=== PATIENT | female | born 2000 | race Caucasian/White ===

== ENCOUNTER 2023-04-10 05:06 | Emergency (ER) | payer SELFPAY ==
[2023-04-10 05:11] VITALS: BP 129/80; PULSE 107; RESP 18; TEMP 36.7; O2SAT 97; BMI 18.9
--- NOTE | 2023-04-10 05:13 | ED.ABDPAIN1 ---
HPI - Abdominal Pain General Chief Complaint: Abdominal Pain Stated Complaint: ABDOMINAL PAIN Time Seen by Provider: 04/10/23 05:13 History of Present Illness HPI narrative: pt coming to the ER with concern of being she have nausea for the last few days in the morning and she also noted that she has been having some low back pain some positive flex more than usual The patient denies any abdominal pain denying any vaginal bleeding her last menstruation was in February before that 15 and it was only 2 days instead of 5 Related Data Home Medications Medication Instructions Recorded Confirmed midodrine 2.5 mg tablet mg 04/10/23 Previous Rx's Medication Instructions Recorded pyridoxine (vitamin B6) 25 mg 25 mg PO TID PRN nausea and 04/10/23 tablet vomiting #20 tabs Review of Systems ROS Status of ROS 10 or more systems reviewed and unremarkable except as noted in history and below PFSH PFSH Social History Smoking status: Current every day smoker Exam Narrative Exam Narrative: Nurses notes and vital signs reviewed and patient is not hypoxic. General: Well-appearing and in no apparent distress. Skin: Warm, dry, no pallor noted. No rash. Head: Normocephalic, atraumatic. Neck: Supple, non-tender. Eye: Pupils are equal, round and EOMI. No scleral icterus. Ears, Nose, Mouth, and Throat: TM are clear, no nasal mucosal hypertrophy. Oral mucosa is moist, no posterior oropharynx erythema, uvula is mid-line Cardiovascular: Regular Rate and Rhythm without murmur, gallop or rub. Respiratory: No accessory muscle use or respiratory distress. Lungs are clear to auscultation, no wheezing, rales or rhonchi Chest Wall: no tenderness Back: No midline thoracic or lumbar vertebral tenderness. No CVA tenderness Musculoskeletal: normal ROM, no calf or popliteal tenderness, no lower extremity edema/swelling GI: Abdomen is soft, non-distended. Normal bowel sounds. No masses appreciated. No tenderness to palpation. No rebound, guarding, or rigidity noted. Neurological: A&O x4. No cranial nerve dysfunction observed. No truncal ataxia. Moves all extremities. Sensation intact. Psychiatric: Cooperative and interactive. Normal mood and affect. Constitutional Vital Signs, click to edit/add: Last Vital Signs Temp 98.0 F 04/10/23 05:11 Pulse 107 H 04/10/23 05:11 Resp 18 04/10/23 05:11 BP 129/80 04/10/23 05:11 Pulse Ox 97 04/10/23 05:11 O2 Del Method Room Air 04/10/23 05:11 Course Vital Signs Vital signs: Vital Signs Temperature 98.0 F 04/10/23 05:11 Pulse Rate 107 H 04/10/23 05:11 Respiratory Rate 18 04/10/23 05:11 Blood Pressure 129/80 04/10/23 05:11 Pulse Oximetry 97 04/10/23 05:11 Oxygen Delivery Method Room Air 04/10/23 05:11 Temperature 98.0 F 04/10/23 05:11 Pulse Rate 107 H 04/10/23 05:11 Respiratory Rate 18 04/10/23 05:11 Blood Pressure 129/80 04/10/23 05:11 Pulse Oximetry 97 04/10/23 05:11 Oxygen Delivery Method Room Air 04/10/23 05:11 MDM - Abdominal Pain MDM Narrative Medical decision making narrative: The patient examination was benign her urine was positive and she did not have any bacteria in the urine Right right now the patient was treated with vitamin B6 prescription for nausea and vomiting referred to [employer] [facility] service for further evaluation Patient instructed to come back in case of any abdominal pain or vaginal bleeding This is the first for the patient The patient is to follow up with primary care physician in next 2-3 days or to return to the emergency department should any of the signs or symptoms worsen or new symptoms develop. The patient agrees with the following Diagnosis and Treatment plan and the patient will be discharged home. Lab Data Labs: Lab Results 04/10/23 Range/Units 05:19 Urine Color Yellow (YELLOW) Urine Clarity Clear (CLEAR) Urine pH 6.0 (5.0-9.0) Ur Specific [place] >=1.030 A (1.005-1.025) Urine Protein Trace (NEG/TRACE) mg/dL Urine Glucose (UA) Negative (NEGATIVE) mg/dL Urine Ketones Trace A (NEGATIVE) mg/dL Urine Occult Blood Moderate A (NEGATIVE) Urine Nitrite Negative (NEGATIVE) Urine Bilirubin Negative (NEGATIVE) Urine Urobilinogen 1.0 (0.2-1.0) EU/dL Ur Leukocyte Esterase Trace A (NEGATIVE) Urine RBC 2-5 A (0-2) #/HPF Urine WBC 5-10 A (NONE SEEN) #/HPF Ur Squamous Epith Cells Moderate A (NONE/RARE) #/LPF Urine Crystals None seen (None Seen) #/HPF Urine Bacteria Moderate A (NONE SEEN) #/HPF Urine Casts None seen (NONE SEEN) #/LPF Urine Mucus None seen (NONE SEEN) Urine Sperm Seen Ur Culture Indicated? Yes Urine HCG, Qual Positive A (NEGATIVE) Discharge Plan Discharge Chief Complaint: Abdominal Pain Clinical Impression: Patient Disposition: Home, Self-Care Time of Disposition Decision: 06:07 Condition: Good Mode of Transportation: Private Vehicle Prescriptions / Home Meds: New pyridoxine (vitamin B6) 25 mg tablet 25 mg PO TID PRN (Reason: nausea and vomiting) Qty: 20 0RF No Action midodrine 2.5 mg tablet Instructions: Acute Nausea and Vomiting (DC) Stand Alone Forms: Portal Instructions Referrals: Wesly Sue DO [Physician] - 1 week Toña Pabon MD [Primary Care Provider] - 1 week
[2023-04-10 05:25] LABS: HCG Qualitative Urine* POSITIVE (NEGATIVE)
[2023-04-10 05:26] LABS: Bilirubin Urine NEGATIVE (NEGATIVE); Blood Urine MODERATE (NEGATIVE); Clarity Urine CLEAR (CLEAR); Color Urine YELLOW (YELLOW); Glucose Urine UA NEGATIVE (NEGATIVE); Ketones Urine TRACE mg/dL (NEGATIVE); Leukocyte Esterase Urine TRACE (NEGATIVE); Nitrite Urine NEGATIVE (NEGATIVE); Protein Urine TRACE mg/dL (NEG/TRACE); Specific Gravity Urine >=1.030 (1.005-1.025); Urine Microscopic Indicated YES
[2023-04-10 05:33] LABS: Bacteria Urine MODERATE #/HPF (NONE SEEN); Cast Seen? NONE SEEN #/LPF (NONE SEEN); Crystals Seen? None Seen #/HPF (None Seen); Mucus Urine NONE SEEN (NONE SEEN); Sperm Urine SEEN; Squamous Epithelial Cell Urine MODERATE #/LPF (NONE/RARE); Urine Culture Indicated YES
== END 2023-04-10 06:18 | disposition home or self-care (01) ==
PROVIDERS: Emergency Provider Emergency Medicine; PCP Family Medicine
DX: O26.899 Other specified pregnancy related conditions, unspecified trimester (principal); R11.2 Nausea with vomiting, unspecified; O99.330 Smoking (tobacco) complicating pregnancy, unspecified trimester; F17.210 Nicotine dependence, cigarettes, uncomplicated; Z3A.00 Weeks of gestation of pregnancy not specified
CPT/HCPCS: 81001; 81003; 84703; 87086; 99283

== ENCOUNTER 2023-04-11 13:20 | Emergency (ER) | payer SELFPAY ==
[2023-04-11 13:25] VITALS: BP 109/75; PULSE 94; RESP 16; TEMP 36.9; O2SAT 97; BMI 18.9
[2023-04-11] MEDS: PROCHLORPERAZINE 10 MG/2 ML VIAL IV (14:55)
[2023-04-11] MEDS: ONDANSETRON PF 4 MG/2 ML VIAL IV (14:55)
[2023-04-11] MEDS: 0.9 % SODIUM CHLORIDE 1,000 ML 999 ML IV (14:55)
[2023-04-11 15:13] LABS: Basophils Percent Auto 0.3 % (0.2-2.0); Hematocrit 37.9 % (36.0-48.0); Hemoglobin 13.1 g/dL (12.0-16.0); Immature Granulocytes Abs Auto 0.03 10^3/uL (0.00-0.03); Immature Granulocytes Pct Auto 0.3 % (0.0-0.5); Lymphocytes Percent Auto 11.1 % (20.5-60.0); Mean Corpuscular HGB Conc 34.6 g/dL (29.9-35.2); Mean Corpuscular Hemoglobin 29.8 pg (26.7-34.0); Mean Corpuscular Volume 86.3 fL (81.0-99.0); Mean Platelet Volume 9.6 fL (9.5-13.5); Monocytes Absolute Auto 0.3 10^3/uL (0.3-0.8); Monocytes Percent Auto 3.1 % (1.7-12.0); Neutrophils Absolute Auto 7.9 10^3/uL (1.4-6.5); Neutrophils Percent Auto 85.2 % (43.0-75.0); Platelet Count 256 10^3/uL (150-450); Red Blood Count 4.39 10^6/uL (4.20-5.40); Red Cell Distribution Width 12.4 % (11.0-15.0); White Blood Count 9.3 10^3/uL (4.0-11.0)
[2023-04-11 15:25] LABS: Alanine Aminotransferase 20 U/L (14-59); Albumin Globulin Ratio 1.4; Albumin Level 4.9 g/dL (3.4-5.0); Alkaline Phosphatase 56 U/L (46-116); Anion Gap 19.8; Aspartate Amino Transferase 17 U/L (15-37); BUN Creatinine Ratio 20.3; Carbon Dioxide 20.5 mmol/L (21.0-32.0); Chloride 100 mmol/L (98-107); Estimated GFR (African America >60 (>=60); Estimated GFR (Non-African Ame >60 (>=60); Globulin 3.4 g/dL; Glucose 94 mg/dL (74-106); Potassium 3.3 mmol/L (3.5-5.1); Sodium 137 mmol/L (136-145); Total Protein 8.3 g/dL (6.4-8.2)
[2023-04-11] MEDS: POTASSIUM BICARBONATE/CIT 25 MEQ TABLET EFF 50 MEQ PO (15:41)
[2023-04-11 15:52] LABS: HCG Quantitative 16211 mIU/mL
--- NOTE | 2023-04-11 16:11 | ED_ITS ---
HPI - General Adult General Chief complaint: Abdominal Pain Stated complaint: issues 4 weeks Time Seen by Provider: 04/11/23 13:48 Source: patient and family Mode of arrival: walk-in Limitations: no limitations History of Present Illness HPI narrative: Patient is a 22-year-old female who is presenting to the Emergency Room with chief complaint of nausea, vomiting, and finding out that she was early this morning. Patient's having diffuse abdominal pain and discomfort. Patient says that she is vomited 4 or 5 times since she was discharged. Patient stated that she came into the Emergency Room this morning because of abdominal discomfort, nausea or vomiting. Patient says that she did not feel any better when she left the Emergency Room. Urine was done. Patient has no pelvic pain, vaginal bleeding or discharge or orders. She does have urinary frequency urine seemed burning. She is a . Patient's mother and boyfriend at bedside. I walk into the room it smelled a significant marijuana use, I asked the patient and family members at bedside who smoking marijuana and this from because the older and stench was significant. Patient denies any type of falls. No chest pain or shortness of breath. No headaches, neck pain, no other acute complaints. No rash. . All systems are negative except as noted/marked. All systems reviewed and otherwise negative. . Nurses note and vital signs reviewed and patient is not hypoxic. General: The patient appears well and in no apparent distress. Patient is resting comfortably on cart. Patient is not toxic, lethargic, or listless Skin: Warm, dry, no pallor noted. There is no rash noted. No petechiae, purpura. Head: Normocephalic, atraumatic Eye: Normal conjunctiva, no drainage, EOMI. PERRL Ears, Nose, Mouth, and Throat: oral mucosa is moist. Nares patent. Mouth without vesicles. Cardiovascular: Regular Rate and Rhythm, no murmur, gallop, rub Respiratory: Patient is in no distress, no accessory muscle use, lungs are elida r to auscultation, no wheezing, rales or rhonchi Back: non-tender, no CVA tenderness bilaterally to percussion. No CT LS midline pain GI: soft, Moderate diffuse tenderness to palpation, no masses appreciated. No rebound, + guarding, or rigidity noted. No flank pain bilateral, No distention. No suprapubic tenderness to palpation. Musculoskeletal: Patient has full range of motion of all of the extremities, no motor, sensory, or focal neurological deficits Neurological: A&O x3, normal speech Psychiatric: Cooperative Related Data Home Medications Medication Instructions Recorded Confirmed midodrine 2.5 mg tablet mg 04/10/23 Previous Rx's Medication Instructions Recorded pyridoxine (vitamin B6) 25 mg 25 mg PO TID PRN nausea and 04/10/23 tablet vomiting #20 tabs cephalexin 500 mg capsule 500 mg PO Q12H 5 days #10 caps 04/11/23 ondansetron 4 mg disintegrating 4 mg PO Q4H PRN nausea and 04/11/23 tablet vomiting 3 days #6 tabs promethazine 25 mg rectal 25 mg IA Q6H PRN nausea and 04/11/23 suppository vomiting #6 ea Allergies Allergy/AdvReac Type Severity Reaction Status Date / Time No Known Drug Allergies Allergy Verified 04/11/23 13:30 PFSH PFSH Social History Smoking status: Former smoker Exam Constitutional Vital Signs, click to edit/add: Last Vital Signs Temp 98.5 F 04/11/23 13:25 Pulse 94 H 04/11/23 13:25 Resp 16 04/11/23 13:25 BP 109/75 04/11/23 13:25 Pulse Ox 97 04/11/23 13:25 O2 Del Method Room Air 04/11/23 13:25 Course Vital Signs Vital signs: Vital Signs Temperature 98.5 F 04/11/23 13:25 Pulse Rate 94 H 04/11/23 13:25 Respiratory Rate 16 04/11/23 13:25 Blood Pressure 109/75 04/11/23 13:25 Pulse Oximetry 97 04/11/23 13:25 Oxygen Delivery Method Room Air 04/11/23 13:25 Temperature 98.5 F 04/11/23 13:25 Pulse Rate 94 H 04/11/23 13:25 Respiratory Rate 16 04/11/23 13:25 Blood Pressure 109/75 04/11/23 13:25 Pulse Oximetry 97 04/11/23 13:25 Oxygen Delivery Method Room Air 04/11/23 13:25 Medical Decision Making MDM Narrative Medical decision making narrative: Patient had a urine sample done 2 days ago. Patient I would blood cells, leuk esterase, and moderate amount of bacteria in the urine. It was noted the ppatient was . There were epithelial cells in the urine, urine culture is pending. Now the patient is , she is having urinary frequency urgency and burning, I will not wait for the urine culture to come back, I'm going to treat her with Keflex for 5 days. Patient has Zofran at home, she will be given a prescription for Phenergan suppositories as well. Patient feels significant better after IV fluids.Patient will follow-up with Dr. Sue. Patient is aware to only take Tylenol and started taking vitamins for as well. Patient thankful, no questions at discharge. When I initially walked into the room to see the patient, the room smelled of significant amount of marijuana. Patient's mother stated that she smoked marijuana yesterday not today, patient said that she is not smoking marijuana today or during , and her boyfriend did not see word when I asked him who is smoking marijuana in this room 9. Lab Data Lab results reviewed: Yes I reviewed the patient's lab results Labs: Lab Results 04/11/23 Range/Units 14:50 WBC 9.3 (4.0-11.0) 10^3/uL RBC 4.39 (4.20-5.40) 10^6/uL Hgb 13.1 (12.0-16.0) g/dL Hct 37.9 (36.0-48.0) % MCV 86.3 (81.0-99.0) fL MCH 29.8 (26.7-34.0) pg MCHC 34.6 (29.9-35.2) g/dL RDW 12.4 (11.0-15.0) % Plt Count 256 (150-450) 10^3/uL MPV 9.6 (9.5-13.5) fL Neut % (Auto) 85.2 H (43.0-75.0) % Lymph % (Auto) 11.1 L (20.5-60.0) % [place] % (Auto) 3.1 (1.7-12.0) % Eos % (Auto) 0.0 L (0.9-7.0) % Baso % (Auto) 0.3 (0.2-2.0) % Neut # (Auto) 7.9 H (1.4-6.5) 10^3/uL Lymph # (Auto) 1.0 L (1.2-3.8) 10^3/uL [place] # (Auto) 0.3 (0.3-0.8) 10^3/uL Eos # (Auto) 0.0 (0.0-0.7) 10^3/uL Baso # (Auto) 0.0 (0.0-0.1) 10^3/uL Abs Immat Gran (auto) 0.03 (0.00-0.03) 10^3/uL Imm/Tot Granulo (auto) 0.3 (0.0-0.5) % Sodium 137 (136-145) mmol/L Potassium 3.3 L (3.5-5.1) mmol/L Chloride 100 (98-107) mmol/L Carbon Dioxide 20.5 L (21.0-32.0) mmol/L Anion Gap 19.8 BUN 12.0 (7.0-18.0) mg/dL Creatinine 0.59 (0.55-1.02) mg/dL Est GFR ( Amer) >60 (>=60) Est GFR (Non-Af Amer) >60 (>=60) BUN/Creatinine Ratio 20.3 Glucose 94 (74-106) mg/dL Calcium 10.0 (8.5-10.1) mg/dL Total Bilirubin 1.0 (0.2-1.0) mg/dL AST 17 (15-37) U/L ALT 20 (14-59) U/L Alkaline Phosphatase 56 (46-116) U/L Total Protein 8.3 H (6.4-8.2) g/dL Albumin 4.9 (3.4-5.0) g/dL Globulin 3.4 g/dL Albumin/Globulin Ratio 1.4 Lipase 187.0 (73.0-393.0) U/L HCG, Quant 66040 mIU/mL Discharge Plan Discharge Chief Complaint: Abdominal Pain Clinical Impression: UTI (urinary tract infection), , Nausea & vomiting, Hypokalemia Patient Disposition: Home, Self-Care Condition: Good Prescriptions / Home Meds: New ondansetron 4 mg tablet,disintegrating 4 mg PO Q4H PRN (Reason: nausea and vomiting) 3 Days Qty: 6 0RF promethazine 25 mg suppository 25 mg IA Q6H PRN (Reason: nausea and vomiting) Qty: 6 0RF cephalexin 500 mg capsule 500 mg PO Q12H 5 Days Qty: 10 0RF No Action midodrine 2.5 mg tablet pyridoxine (vitamin B6) 25 mg tablet 25 mg PO TID PRN (Reason: nausea and vomiting) Qty: 20 0RF Instructions: (ED), Potassium Content of Foods List (ED), Hypokalemia (ED), Acute Nausea and Vomiting (ED), Urinary Tract Infection in (ED) Additional Instructions: Increase your fluids at home. Start taking vitamins daily. Only use Tylenol as needed for pain. Call Dr. Sue to schedule Appointment. Stand Alone Forms: Portal Instructions Referrals: Toña Pabon MD [Primary Care Provider] - 1 week
== END 2023-04-11 16:14 | disposition home or self-care (01) ==
PROVIDERS: Emergency Provider Emergency Medicine; PCP Family Medicine
DX: O23.41 Unspecified infection of urinary tract in pregnancy, first trimester (principal); N39.0 Urinary tract infection, site not specified; O26.891 Other specified pregnancy related conditions, first trimester; R11.2 Nausea with vomiting, unspecified; E87.6 Hypokalemia; Z3A.01 Less than 8 weeks gestation of pregnancy; Z87.891 Personal history of nicotine dependence
CPT/HCPCS: 36415; 80053; 83690; 84702; 85025; 96374; 96375; 99284

== ENCOUNTER 2023-04-16 01:47 | Emergency (ER) | payer SELFPAY ==
[2023-04-16 01:52] VITALS: BP 113/75; PULSE 82; RESP 16; TEMP 36.9; O2SAT 99; BMI 18.3
--- NOTE | 2023-04-16 02:12 | ED.ABDPAIN1 ---
HPI - Abdominal Pain General Chief Complaint: Abdominal Pain Stated Complaint: PAIN LOW ABDOMAN Time Seen by Provider: 04/16/23 02:08 Source: patient Mode of arrival: walk-in Limitations: no limitations History of Present Illness HPI narrative: first trimester . presents complaining of abdominal pain. has nausea and vomiting. Not short of breath. No vaginal bleeding or urinary symptoms complains of feeling sore all over from recurrent vomiting. no blood. patient prescribed phenergan suppositories but was taking them PO and vomiting MD elicited complaint: Reports abdominal pain Related Data Home Medications Medication Instructions Recorded Confirmed midodrine 2.5 mg tablet mg 04/10/23 Previous Rx's Medication Instructions Recorded pyridoxine (vitamin B6) 25 mg 25 mg PO TID PRN nausea and 04/10/23 tablet vomiting #20 tabs cephalexin 500 mg capsule 500 mg PO Q12H 5 days #10 caps 04/11/23 ondansetron 4 mg disintegrating 4 mg PO Q4H PRN nausea and 04/11/23 tablet vomiting 3 days #6 tabs promethazine 25 mg rectal 25 mg OR Q6H PRN nausea and 04/11/23 suppository vomiting #6 ea Allergies Allergy/AdvReac Type Severity Reaction Status Date / Time No Known Drug Allergies Allergy Verified 04/16/23 01:52 Review of Systems ROS Status of ROS 10 or more systems reviewed and unremarkable except as noted in history and below PFSH PFS Social History Smoking status: Former smoker Exam Constitutional Vital Signs, click to edit/add: Last Vital Signs Temp 98.4 F 04/16/23 01:52 Pulse 82 04/16/23 01:52 Resp 16 04/16/23 01:52 BP 113/75 04/16/23 01:52 Pulse Ox 99 04/16/23 01:52 O2 Del Method Room Air 04/16/23 01:52 Common normals: no apparent distress, oriented x3, healthy appearing and alert Eye Common normals: EOMs intact bilaterally and conjunctivae normal Chest Other: pos. chest wall tenderness GI Other: gen. diffuse nonspecific abdominal tenderness and bilat CVA/flank tenderness Extremity Common normals: normal to inspection and full ROM Neuro Common normals: oriented x3, CN's II-XII intact bilaterally, moves all extremities, no focal motor deficits and no sensory deficits noted Psych Appearance: grossly normal Course Vital Signs Vital signs: Vital Signs Temperature 98.4 F 04/16/23 01:52 Pulse Rate 82 04/16/23 01:52 Respiratory Rate 16 04/16/23 01:52 Blood Pressure 113/75 04/16/23 01:52 Pulse Oximetry 99 04/16/23 01:52 Oxygen Delivery Method Room Air 04/16/23 01:52 Temperature 98.4 F 04/16/23 01:52 Pulse Rate 82 04/16/23 01:52 Respiratory Rate 16 04/16/23 01:52 Blood Pressure 113/75 04/16/23 01:52 Pulse Oximetry 99 04/16/23 01:52 Oxygen Delivery Method Room Air 04/16/23 01:52 MDM - Abdominal Pain MDM Narrative Medical decision making narrative: patient presents with recurrent vomiting. she is sore all over including her abdomen and chest wall. She was hydrated and given phenergan IV. She was also given tylenol. she is now feeling better and requesting to go home Lab Data Labs: Lab Results 04/16/23 Range/Units 02:00 WBC 9.8 (4.0-11.0) 10^3/uL RBC 4.20 (4.20-5.40) 10^6/uL Hgb 12.7 (12.0-16.0) g/dL Hct 37.6 (36.0-48.0) % MCV 89.5 (81.0-99.0) fL MCH 30.2 (26.7-34.0) pg MCHC 33.8 (29.9-35.2) g/dL RDW 12.6 (11.0-15.0) % Plt Count 240 (150-450) 10^3/uL MPV 9.9 (9.5-13.5) fL Neut % (Auto) 73.5 (43.0-75.0) % Lymph % (Auto) 19.6 L (20.5-60.0) % [place] % (Auto) 6.1 (1.7-12.0) % Eos % (Auto) 0.2 L (0.9-7.0) % Baso % (Auto) 0.3 (0.2-2.0) % Neut # (Auto) 7.2 H (1.4-6.5) 10^3/uL Lymph # (Auto) 1.9 (1.2-3.8) 10^3/uL [place] # (Auto) 0.6 (0.3-0.8) 10^3/uL Eos # (Auto) 0.0 (0.0-0.7) 10^3/uL Baso # (Auto) 0.0 (0.0-0.1) 10^3/uL Abs Immat Gran (auto) 0.03 (0.00-0.03) 10^3/uL Imm/Tot Granulo (auto) 0.3 (0.0-0.5) % Sodium 137 (136-145) mmol/L Potassium 3.5 (3.5-5.1) mmol/L Chloride 101 (98-107) mmol/L Carbon Dioxide 22.6 (21.0-32.0) mmol/L Anion Gap 16.9 BUN 8.0 (7.0-18.0) mg/dL Creatinine 0.68 (0.55-1.02) mg/dL Est GFR ( Amer) >60 (>=60) Est GFR (Non-Af Amer) >60 (>=60) BUN/Creatinine Ratio 11.8 Glucose 96 (74-106) mg/dL Calcium 9.3 (8.5-10.1) mg/dL Total Bilirubin 0.7 (0.2-1.0) mg/dL AST 12 L (15-37) U/L ALT 17 (14-59) U/L Alkaline Phosphatase 47 (46-116) U/L Total Protein 7.9 (6.4-8.2) g/dL Albumin 4.7 (3.4-5.0) g/dL Globulin 3.2 g/dL Albumin/Globulin Ratio 1.5 Lipase 249.0 (73.0-393.0) U/L Urine Color Yellow (YELLOW) Urine Clarity Cloudy A (CLEAR) Urine pH 8.5 (5.0-9.0) Ur Specific [place] 1.015 (1.005-1.025) Urine Protein Trace (NEG/TRACE) mg/dL Urine Glucose (UA) Negative (NEGATIVE) mg/dL Urine Ketones >=80 A (NEGATIVE) mg/dL Urine Occult Blood Trace-i (NEGATIVE) Urine Nitrite Negative (NEGATIVE) Urine Bilirubin Negative (NEGATIVE) Urine Urobilinogen 2.0 A (0.2-1.0) EU/dL Ur Leukocyte Esterase Negative (NEGATIVE) Urine RBC 2-5 A (0-2) #/HPF Urine WBC 2-5 A (NONE SEEN) #/HPF Ur Squamous Epith Cells Few A (NONE/RARE) #/LPF Urine Crystals Seen A (None Seen) #/HPF Amorphous Sediment Moderate Urine Bacteria Trace A (NONE SEEN) #/HPF Urine Casts None seen (NONE SEEN) #/LPF Urine Mucus None seen (NONE SEEN) Ur Culture Indicated? Yes Discharge Plan Discharge Chief Complaint: Abdominal Pain Clinical Impression: , Abdominal wall pain, Nausea & vomiting Prescriptions / Home Meds: No Action ondansetron 4 mg tablet,disintegrating 4 mg PO Q4H PRN (Reason: nausea and vomiting) 3 Days Qty: 6 0RF promethazine 25 mg suppository 25 mg OR Q6H PRN (Reason: nausea and vomiting) Qty: 6 0RF cephalexin 500 mg capsule 500 mg PO Q12H 5 Days Qty: 10 0RF midodrine 2.5 mg tablet pyridoxine (vitamin B6) 25 mg tablet 25 mg PO TID PRN (Reason: nausea and vomiting) Qty: 20 0RF Instructions: Acute Nausea and Vomiting (DC), Abdominal Pain (ED) Stand Alone Forms: Portal Instructions Referrals: Toña Pabon MD [Primary Care Provider] - 1 week
[2023-04-16 02:23] LABS: Basophils Percent Auto 0.3 % (0.2-2.0); Eosinophils Percent Auto 0.2 % (0.9-7.0); Hematocrit 37.6 % (36.0-48.0); Hemoglobin 12.7 g/dL (12.0-16.0); Immature Granulocytes Abs Auto 0.03 10^3/uL (0.00-0.03); Immature Granulocytes Pct Auto 0.3 % (0.0-0.5); Lymphocytes Absolute Auto 1.9 10^3/uL (1.2-3.8); Lymphocytes Percent Auto 19.6 % (20.5-60.0); Mean Corpuscular HGB Conc 33.8 g/dL (29.9-35.2); Mean Corpuscular Hemoglobin 30.2 pg (26.7-34.0); Mean Corpuscular Volume 89.5 fL (81.0-99.0); Mean Platelet Volume 9.9 fL (9.5-13.5); Monocytes Absolute Auto 0.6 10^3/uL (0.3-0.8); Monocytes Percent Auto 6.1 % (1.7-12.0); Neutrophils Absolute Auto 7.2 10^3/uL (1.4-6.5); Neutrophils Percent Auto 73.5 % (43.0-75.0); Platelet Count 240 10^3/uL (150-450); Red Cell Distribution Width 12.6 % (11.0-15.0); White Blood Count 9.8 10^3/uL (4.0-11.0)
[2023-04-16 02:35] LABS: Alanine Aminotransferase 17 U/L (14-59); Albumin Globulin Ratio 1.5; Albumin Level 4.7 g/dL (3.4-5.0); Alkaline Phosphatase 47 U/L (46-116); Anion Gap 16.9; Aspartate Amino Transferase 12 U/L (15-37); BUN Creatinine Ratio 11.8; Bilirubin Total 0.7 mg/dL (0.2-1.0); Calcium 9.3 mg/dL (8.5-10.1); Carbon Dioxide 22.6 mmol/L (21.0-32.0); Chloride 101 mmol/L (98-107); Estimated GFR (African America >60 (>=60); Estimated GFR (Non-African Ame >60 (>=60); Globulin 3.2 g/dL; Glucose 96 mg/dL (74-106); Potassium 3.5 mmol/L (3.5-5.1); Sodium 137 mmol/L (136-145); Total Protein 7.9 g/dL (6.4-8.2)
[2023-04-16] MEDS: 0.9 % SODIUM CHLORIDE 1,000 ML 999 ML IV (02:37)
[2023-04-16] MEDS: ACETAMINOPHEN 500 MG TABLET 1000 MG PO (02:38)
[2023-04-16] MEDS: PROMETHAZINE HCL 25 MG/ML VIAL 12.5 MG IV (02:38)
[2023-04-16 02:46] LABS: Bilirubin Urine NEGATIVE (NEGATIVE); Blood Urine TRACE-I (NEGATIVE); Clarity Urine CLOUDY (CLEAR); Color Urine YELLOW (YELLOW); Glucose Urine UA NEGATIVE (NEGATIVE); Ketones Urine >=80 mg/dL (NEGATIVE); Leukocyte Esterase Urine NEGATIVE (NEGATIVE); Nitrite Urine NEGATIVE (NEGATIVE); Protein Urine TRACE mg/dL (NEG/TRACE); Specific Gravity Urine 1.015 (1.005-1.025); pH Urine 8.5 (5.0-9.0)
[2023-04-16 02:48] LABS: Urine Microscopic Indicated YES
[2023-04-16 03:04] LABS: Bacteria Urine TRACE #/HPF (NONE SEEN); Mucus Urine NONE SEEN (NONE SEEN); Squamous Epithelial Cell Urine FEW #/LPF (NONE/RARE)
[2023-04-16 03:05] LABS: Amorphous Sediment Urine MODERATE; Cast Seen? NONE SEEN #/LPF (NONE SEEN); Crystals Seen? Seen #/HPF (None Seen); Urine Culture Indicated YES
== END 2023-04-16 03:52 | disposition home or self-care (01) ==
PROVIDERS: Emergency Provider Internal Medicine; PCP Family Medicine
DX: O26.899 Other specified pregnancy related conditions, unspecified trimester (principal); R11.2 Nausea with vomiting, unspecified; R10.9 Unspecified abdominal pain; Z3A.00 Weeks of gestation of pregnancy not specified; Z87.891 Personal history of nicotine dependence
CPT/HCPCS: 36415; 80053; 81001; 81003; 83690; 85025; 87086; 96374; 99284

== ENCOUNTER 2023-04-19 15:07 | Outpatient (OUT) | payer MEDICAID, SELFPAY ==
[2023-04-19 16:28] LABS: HCG Quantitative 47692 mIU/mL
== END 2023-04-19 15:08 | disposition home or self-care (01) ==
LOC: LAB 15:09
PROVIDERS: PCP Family Medicine; Visit Provider Obstetrics & Gynecology
DX: N92.6 Irregular menstruation, unspecified (principal)
CPT/HCPCS: 36415; 84702

== ENCOUNTER 2023-05-02 22:41 | Emergency (ER) | payer MEDICAID, SELFPAY ==
[2023-05-02 22:50] VITALS: BP 130/70; PULSE 89; RESP 18; TEMP 36.9; O2SAT 99; BMI 18.9
--- NOTE | 2023-05-02 23:11 | ED.NAVMDI1 ---
HPI - Nausea/Vomiting/Diarrhea General Chief complaint: Nausea/Vomiting/Diarrhea Stated complaint: ABDOMINAL PAIN Time Seen by Provider: 05/02/23 22:58 Source: patient and family Mode of arrival: walk-in Limitations: no limitations History of Present Illness HPI Narrative: patient states she is . First . Believes she is about 4 weeks . States seen last week and diagnosed with UTI. Has been taking antibiotics but now not able to keep anything down with recurrent vomiting. Denies vaginal bleeding or spotting. States she has had abdominal pain for the past week MD elicited complaint: Reports nausea, vomiting and abdominal pain Related Data Home Medications Medication Instructions Recorded Confirmed midodrine 2.5 mg tablet mg 04/10/23 Previous Rx's Medication Instructions Recorded pyridoxine (vitamin B6) 25 mg 25 mg PO TID PRN nausea and 04/10/23 tablet vomiting #20 tabs cephalexin 500 mg capsule 500 mg PO Q12H 5 days #10 caps 04/11/23 ondansetron 4 mg disintegrating 4 mg PO Q4H PRN nausea and 04/11/23 tablet vomiting 3 days #6 tabs promethazine 25 mg rectal 25 mg OK Q6H PRN nausea and 04/11/23 suppository vomiting #6 ea Allergies Allergy/AdvReac Type Severity Reaction Status Date / Time No Known Drug Allergies Allergy Verified 05/02/23 22:50 Review of Systems ROS Status of ROS 10 or more systems reviewed and unremarkable except as noted in history and below PFSH PFS Social History Smoking status: Former smoker Exam Constitutional Vital Signs, click to edit/add: Last Vital Signs Temp 98.4 F 05/02/23 22:50 Pulse 68 05/03/23 01:18 Resp 16 05/03/23 01:18 BP 102/58 05/03/23 02:45 Pulse Ox 100 05/03/23 01:18 O2 Del Method Room Air 05/02/23 22:50 Common normals: no apparent distress, oriented x3, no limitations, healthy appearing and alert Eye Common normals: PERRL, EOMs intact bilaterally and conjunctivae normal Respiratory Common normals: normal respiratory effort, no use of accessory muscles and clear to auscultation bilaterally Cardio Common normals: regular rate, regular rhythm, S1 normal heart sound and S2 normal heart sound GI Other: gen. nonspecific tenderness. no guarding Other: normal external appearance . mod amount of exudate in the vault that was also covering the cervix limiting view of the cervix. No cervical motion or adnexa tenderness Extremity Common normals: normal to inspection and full ROM Neuro Common normals: oriented x3, CN's II-XII intact bilaterally, moves all extremities, no focal motor deficits and no sensory deficits noted Psych Appearance: grossly normal Course Vital Signs Vital signs: Vital Signs Temperature 98.4 F 05/02/23 22:50 Pulse Rate 89 05/02/23 22:50 Respiratory Rate 18 05/02/23 22:50 Blood Pressure 130/70 05/02/23 22:50 Pulse Oximetry 99 05/02/23 22:50 Oxygen Delivery Method Room Air 05/02/23 22:50 Temperature 98.4 F 05/02/23 22:50 Pulse Rate 68 05/03/23 01:18 Respiratory Rate 16 05/03/23 01:18 Blood Pressure 102/58 05/03/23 02:45 Pulse Oximetry 100 05/03/23 01:18 Oxygen Delivery Method Room Air 05/02/23 22:50 MDM - Nausea/Vomiting/Diarrhea MDM Narrative Medical decision making narrative: patient early presents with recurrent vomiting. Treated for UTI that was diagnosed last week. Complained of abdominal pain for one week. abdominal exam with gen. tenderness that was nonspecific. exam of her abdomen seemed out of proportion as she would have pain with light touch of the abdomen. Her pelvic exam was the opposite. No tenderness at all. She did have mod. discharge and was found to have clue cells. She continued to complain of abdominal pain and therefore abdomen xray was obtained and fetus lead shield used to protect the fetus . xray nonspecific and not cercerning for abdominal pain for one week. Also labs normal except for clue cells as above. Patient treated for dehydration and hypokalemia. Discharged home to follow up with gynecology in one day Lab Data Labs: Lab Results 05/02/23 05/02/23 Range/Units 23:15 23:35 WBC 7.7 (4.0-11.0) 10^3/uL RBC 4.55 (4.20-5.40) 10^6/uL Hgb 13.9 (12.0-16.0) g/dL Hct 39.6 (36.0-48.0) % MCV 87.0 (81.0-99.0) fL MCH 30.5 (26.7-34.0) pg MCHC 35.1 (29.9-35.2) g/dL RDW 12.5 (11.0-15.0) % Plt Count 245 (150-450) 10^3/uL MPV 9.5 (9.5-13.5) fL Neut % (Auto) 72.6 (43.0-75.0) % Lymph % (Auto) 19.8 L (20.5-60.0) % [place] % (Auto) 6.9 (1.7-12.0) % Eos % (Auto) 0.1 L (0.9-7.0) % Baso % (Auto) 0.3 (0.2-2.0) % Neut # (Auto) 5.6 (1.4-6.5) 10^3/uL Lymph # (Auto) 1.5 (1.2-3.8) 10^3/uL [place] # (Auto) 0.5 (0.3-0.8) 10^3/uL Eos # (Auto) 0.0 (0.0-0.7) 10^3/uL Baso # (Auto) 0.0 (0.0-0.1) 10^3/uL Abs Immat Gran (auto) 0.02 (0.00-0.03) 10^3/uL Imm/Tot Granulo (auto) 0.3 (0.0-0.5) % Sodium 130 L (136-145) mmol/L Potassium 3.1 L (3.5-5.1) mmol/L Chloride 94 L (98-107) mmol/L Carbon Dioxide 27.9 (21.0-32.0) mmol/L Anion Gap 11.2 BUN 11.0 (7.0-18.0) mg/dL Creatinine 0.63 (0.55-1.02) mg/dL Est GFR ( Amer) >60 (>=60) Est GFR (Non-Af Amer) >60 (>=60) BUN/Creatinine Ratio 17.5 Glucose 103 (74-106) mg/dL Lactate 1.2 (0.4-2.0) mmol/L Calcium 9.7 (8.5-10.1) mg/dL Total Bilirubin 0.9 (0.2-1.0) mg/dL AST 15 (15-37) U/L ALT 21 (14-59) U/L Alkaline Phosphatase 48 (46-116) U/L Total Protein 8.4 H (6.4-8.2) g/dL Albumin 4.9 (3.4-5.0) g/dL Globulin 3.5 g/dL Albumin/Globulin Ratio 1.4 HCG, Quant 414023 mIU/mL Urine Color Yellow (YELLOW) Urine Clarity Clear (CLEAR) Urine pH 6.0 (5.0-9.0) Ur Specific [place] >=1.030 A (1.005-1.025) Urine Protein Trace (NEG/TRACE) mg/dL Urine Glucose (UA) Negative (NEGATIVE) mg/dL Urine Ketones >=80 A (NEGATIVE) mg/dL Urine Occult Blood Negative (NEGATIVE) Urine Nitrite Negative (NEGATIVE) Urine Bilirubin Small A (NEGATIVE) Urine Urobilinogen 1.0 (0.2-1.0) EU/dL Ur Leukocyte Esterase Negative (NEGATIVE) Discharge Plan Discharge Chief Complaint: Nausea/Vomiting/Diarrhea Clinical Impression: Bacterial vaginosis in , Abdominal pain affecting , Nausea & vomiting Patient Disposition: Home, Self-Care Prescriptions / Home Meds: No Action ondansetron 4 mg tablet,disintegrating 4 mg PO Q4H PRN (Reason: nausea and vomiting) 3 Days Qty: 6 0RF promethazine 25 mg suppository 25 mg OK Q6H PRN (Reason: nausea and vomiting) Qty: 6 0RF cephalexin 500 mg capsule 500 mg PO Q12H 5 Days Qty: 10 0RF midodrine 2.5 mg tablet pyridoxine (vitamin B6) 25 mg tablet 25 mg PO TID PRN (Reason: nausea and vomiting) Qty: 20 0RF Instructions: Hyperemesis Gravidarum (ED), Bacterial Vaginosis (ED), Abdominal Pain in (ED) Additional Instructions: follow up with Dr Sue tomorrow Stand Alone Forms: Portal Instructions Referrals: Toña Pabon MD [Primary Care Provider] - 1 week
[2023-05-02] MEDS: PROMETHAZINE HCL 25 MG/ML VIAL 12.5 MG IV (23:41)
[2023-05-02] MEDS: 0.9 % SODIUM CHLORIDE 1,000 ML 999 ML IV (23:41)
[2023-05-02 23:45] LABS: Basophils Percent Auto 0.3 % (0.2-2.0); Eosinophils Percent Auto 0.1 % (0.9-7.0); Hematocrit 39.6 % (36.0-48.0); Hemoglobin 13.9 g/dL (12.0-16.0); Immature Granulocytes Abs Auto 0.02 10^3/uL (0.00-0.03); Immature Granulocytes Pct Auto 0.3 % (0.0-0.5); Lymphocytes Absolute Auto 1.5 10^3/uL (1.2-3.8); Lymphocytes Percent Auto 19.8 % (20.5-60.0); Mean Corpuscular HGB Conc 35.1 g/dL (29.9-35.2); Mean Corpuscular Hemoglobin 30.5 pg (26.7-34.0); Mean Platelet Volume 9.5 fL (9.5-13.5); Monocytes Absolute Auto 0.5 10^3/uL (0.3-0.8); Monocytes Percent Auto 6.9 % (1.7-12.0); Neutrophils Absolute Auto 5.6 10^3/uL (1.4-6.5); Neutrophils Percent Auto 72.6 % (43.0-75.0); Platelet Count 245 10^3/uL (150-450); Red Blood Count 4.55 10^6/uL (4.20-5.40); Red Cell Distribution Width 12.5 % (11.0-15.0); White Blood Count 7.7 10^3/uL (4.0-11.0)
[2023-05-02 23:59] LABS: Lactate/Lactic Acid 1.2 mmol/L (0.4-2.0)
[2023-05-03 00:01] LABS: Bilirubin Urine SMALL (NEGATIVE); Blood Urine NEGATIVE (NEGATIVE); Clarity Urine CLEAR (CLEAR); Color Urine YELLOW (YELLOW); Glucose Urine UA NEGATIVE (NEGATIVE); Ketones Urine >=80 mg/dL (NEGATIVE); Leukocyte Esterase Urine NEGATIVE (NEGATIVE); Nitrite Urine NEGATIVE (NEGATIVE); Protein Urine TRACE mg/dL (NEG/TRACE); Specific Gravity Urine >=1.030 (1.005-1.025); Urine Microscopic Indicated NO
[2023-05-03 00:06] LABS: Alanine Aminotransferase 21 U/L (14-59); Albumin Globulin Ratio 1.4; Albumin Level 4.9 g/dL (3.4-5.0); Alkaline Phosphatase 48 U/L (46-116); Anion Gap 11.2; Aspartate Amino Transferase 15 U/L (15-37); BUN Creatinine Ratio 17.5; Bilirubin Total 0.9 mg/dL (0.2-1.0); Calcium 9.7 mg/dL (8.5-10.1); Carbon Dioxide 27.9 mmol/L (21.0-32.0); Chloride 94 mmol/L (98-107); Estimated GFR (African America >60 (>=60); Estimated GFR (Non-African Ame >60 (>=60); Globulin 3.5 g/dL; Glucose 103 mg/dL (74-106); Potassium 3.1 mmol/L (3.5-5.1); Sodium 130 mmol/L (136-145); Total Protein 8.4 g/dL (6.4-8.2)
--- NOTE | 2023-05-03 00:30 | PC.NURSE ---
Patient estimated that she is 5 weeks . came to ED for uncontrollable nausea and vomiting with abdominal pain. patient is overly tender across total abdomen and bilateral flank pain. diagnosed with UTI a week ago states she has not been able to finish antibiotics due to continuous vomiting. denies any issues with urinary or bowels. patient has tried zofran and phenergan with no positive results.
[2023-05-03] MEDS: POTASSIUM CHLORIDE IN WATER 10 MEQ/100 ML PIGGYBACK 100 MEQ IV ×2 (01:03→02:08)
[2023-05-03] MEDS: 0.9 % SODIUM CHLORIDE 1,000 ML 999 ML IV (01:03)
[2023-05-03 01:18] VITALS: BP 80/63; PULSE 68; RESP 16; O2SAT 100
--- NOTE | 2023-05-03 02:08 | XR_ITS ---
The [address] [address] Patient Name: SENTHIL SCOTT MRN: [id number] date: 2000 Sex: F Assigned Patient Location: ER Current Patient Location: ER Accession/Order Number: [id number] Exam Date: 05/03/2023 02:30 Report Date: 05/03/2023 02:58 At the request of: IESHA MONREAL Procedure: XR abdomen min 2V EXAM: XR abdomen min 2V HISTORY: pain and vomiting COMPARISON: None. TECHNIQUE: 2 views of the abdomen were obtained. FINDINGS: An umbilical piercing is noted. There is a nonspecific bowel gas pattern without evidence of bowel obstruction. No intraperitoneal free air is seen. The imaged lung bases are clear. No acute osseous abnormality is seen. XR/XR abdomen min 2V IMPRESSION: 1. Nonspecific bowel gas pattern without evidence of bowel obstruction. Electronically authenticated by: Yon DAMICO Date: 05/03/2023 02:58
[2023-05-03 02:45] VITALS: BP 102/58
--- NOTE | 2023-05-03 04:15 | PC.NURSE ---
patient complaints of tight feeling in upper arm above iv sight. RN looked for s/s of infiltration. upper lateral side of arm is cool but appears otherwise normal in compared to other arm. no signs of swelling or brusing. iv discontinued. 10ml of potassium left unadministered.
[2023-05-05 09:13] LABS: Neisseria gonorrhoeae, NAA Negative (Negative)
== END 2023-05-03 04:20 | disposition home or self-care (01) ==
PROVIDERS: Emergency Provider Internal Medicine; PCP Family Medicine
DX: O23.591 Infection of other part of genital tract in pregnancy, first trimester (principal); O26.891 Other specified pregnancy related conditions, first trimester; R11.2 Nausea with vomiting, unspecified; R10.9 Unspecified abdominal pain; Z87.891 Personal history of nicotine dependence; Z3A.01 Less than 8 weeks gestation of pregnancy; Z87.440 Personal history of urinary (tract) infections
CPT/HCPCS: 36415; 74019; 80053; 81003; 83605; 84702; 85025; 87070; 87210; 87491; 87591; 96365; 96375; 96376; 99285

== ENCOUNTER 2023-05-04 13:10 | Outpatient (OUT) | payer MEDICAID, SELFPAY ==
--- NOTE | 2023-05-04 13:11 | US_ITS ---
The [address] [address] Patient Name: SENTHIL SCOTT MRN: [id number] date: 2000 Sex: F Assigned Patient Location: US Current Patient Location: US Accession/Order Number: [id number] Exam Date: 05/04/2023 13:12 Report Date: 05/04/2023 16:00 At the request of: ELSI WHITMORE Procedure: US OB transvaginal EXAMINATION: US OB transvaginal HISTORY: MISSED MENSES COMPARISON: No relevant comparison available. FINDINGS: GESTATIONAL SAC: Present and normal appearing. YOLK SAC: Present and normal appearing. POLE: Present and normal appearing. CARDIAC: Present. UTERUS: Normal size and appearance. OVARIES: Right: Corpus lutein cyst. Left: Not seen. CERVIX: 3.8 cm in length and closed. CUL-DE-SAC: Normal. OTHER: None. AGE BY LMP: Unknown LMP MAURO BY LMP: AGE BY US CRL: 9 weeks 0 days MAURO BY US CRL: 12/07/2023 US/US OB transvaginal IMPRESSION: 1. Single live intrauterine 9 weeks 0 days by today's ultrasound. Electronically authenticated by: CLARY LOYD Date: 05/04/2023 16:00
== END 2023-05-04 13:11 | disposition home or self-care (01) ==
LOC: US 13:10
PROVIDERS: PCP Family Medicine; Visit Provider Obstetrics & Gynecology
DX: Z34.91 Encounter for supervision of normal pregnancy, unspecified, first trimester (principal); Z3A.09 9 weeks gestation of pregnancy
CPT/HCPCS: 76817

== ENCOUNTER 2023-05-04 20:43 | Outpatient (REF) | payer MEDICAID, SELFPAY | END 2023-05-04 20:44 | disposition home or self-care (01) | LOC: LAB 20:43 | PROVIDERS: PCP Family Medicine; Visit Provider Obstetrics & Gynecology | DX: N92.6 Irregular menstruation, unspecified (principal); Z34.91 Encounter for supervision of normal pregnancy, unspecified, first trimester; Z3A.09 9 weeks gestation of pregnancy | CPT/HCPCS: 76817; 87086 ==

== ENCOUNTER 2023-05-16 12:51 | Outpatient (OUT) | payer MEDICAID, SELFPAY ==
[2023-05-16 13:19] LABS: Basophils Percent Auto 0.3 % (0.2-2.0); Eosinophils Absolute Auto 0.1 10^3/uL (0.0-0.7); Eosinophils Percent Auto 1.5 % (0.9-7.0); Hematocrit 35.6 % (36.0-48.0); Hemoglobin 11.9 g/dL (12.0-16.0); Immature Granulocytes Abs Auto 0.01 10^3/uL (0.00-0.03); Immature Granulocytes Pct Auto 0.2 % (0.0-0.5); Lymphocytes Absolute Auto 1.4 10^3/uL (1.2-3.8); Lymphocytes Percent Auto 21.1 % (20.5-60.0); Mean Corpuscular HGB Conc 33.4 g/dL (29.9-35.2); Mean Corpuscular Hemoglobin 30.2 pg (26.7-34.0); Mean Corpuscular Volume 90.4 fL (81.0-99.0); Mean Platelet Volume 9.4 fL (9.5-13.5); Monocytes Absolute Auto 0.4 10^3/uL (0.3-0.8); Monocytes Percent Auto 6.2 % (1.7-12.0); Neutrophils Absolute Auto 4.6 10^3/uL (1.4-6.5); Neutrophils Percent Auto 70.7 % (43.0-75.0); Platelet Count 216 10^3/uL (150-450); Red Blood Count 3.94 10^6/uL (4.20-5.40); Red Cell Distribution Width 12.9 % (11.0-15.0); White Blood Count 6.5 10^3/uL (4.0-11.0)
[2023-05-16 13:29] LABS: Estimated Average Glucose 88 mg/dL; Glycohemoglobin A1C 4.7 % (4.5-6.2)
[2023-05-16 14:03] LABS: Thyroid Stimulating Hormone 0.702 uIU/mL (0.358-3.740)
[2023-05-17 06:12] LABS: HBsAg Screen Negative (Negative); HCV Ab Non Reactive (Non Reactive); HIV Ab/p24 Ag Screen Non Reactive (Non Reactive); Rubella Antibodies, IgG <0.90 index (Immune >0.99)
[2023-05-17 12:13] LABS: Rapid Plasma Reagin, Quant Non Reactive (NonRea<1:1)
== END 2023-05-16 12:52 | disposition home or self-care (01) ==
LOC: LAB 12:52
PROVIDERS: PCP Family Medicine; Visit Provider Obstetrics & Gynecology
DX: Z34.80 Encounter for supervision of other normal pregnancy, unspecified trimester (principal); N92.6 Irregular menstruation, unspecified
CPT/HCPCS: 36415; 83036; 84443; 85025; 86592; 86762; 86803; 86850; 86900; 86901; 87086; 87340; 87389

== ENCOUNTER 2023-07-11 19:40 | Outpatient (REF) | payer BC, MEDICAID, SELFPAY ==
[2023-07-15 11:08] LABS: Age Gdln ACOG Testing Note (.); IGP, rfx Aptima HPV ASCU Note (.)
== END 2023-07-11 19:41 | disposition home or self-care (01) ==
LOC: LAB 19:40
PROVIDERS: PCP Family Medicine; Visit Provider Obstetrics & Gynecology
DX: Z01.419 Encounter for gynecological examination (general) (routine) without abnormal findings (principal)
CPT/HCPCS: G0145

== ENCOUNTER 2023-08-23 11:34 | Emergency (ER) | payer BC, OTHER, SELFPAY ==
[2023-08-23 11:45] VITALS: BP 114/64; PULSE 98; RESP 14; O2SAT 98; BMI 22.0
--- NOTE | 2023-08-23 11:50 | ED.GENADUL1 ---
HPI - General Adult General Chief complaint: Nausea/Vomiting/Diarrhea Stated complaint: PUKING UP BLOOD 27/28 WEEKS Time Seen by Provider: 08/23/23 11:49 Source: patient and family Mode of arrival: walk-in History of Present Illness HPI narrative: Patient is a 22-year-old female who is presenting to the ER with chief complaint of nausea, vomiting, lightheaded. Patient is approximately 27 weeks . Patient is a . Dr. 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 Patient's mother is at bedside. Patient has a history of seizures the last few years they have been working with from [facility]. Patient's seizures have been coming more frequent since she has been . Patient did not have a seizure today. Patient is working at [employer]. No other sick contacts. She currently is no headache, chronic neck and lower back pain from working. She has no pelvic pain. No vaginal bleeding. No bowel or bladder changes. No urinary frequency, urgency or burning. Mother is at bedside. All systems are negative except as noted/marked. All systems reviewed and otherwise negative. Nurses note and vital signs reviewed and patient is not hypoxic. General: The patient appears well and in no apparent distress. Patient is resting comfortably on cart. Patient is not toxic, lethargic, or listless Skin: Warm, dry, no pallor noted. There is no rash noted. No petechiae, purpura. Head: Normocephalic, atraumatic Eye: Normal conjunctiva, no drainage, EOMI. PERRL Ears, Nose, Mouth, and Throat: oral mucosa is moist. Nares patent. Mouth without vesicles. Cardiovascular: Regular Rate and Rhythm, no murmur, gallop, rub Respiratory: Patient is in no distress, no accessory muscle use, lungs are clear to auscultation, no wheezing, rales or rhonchi Back: Mild tenderness to palpation to paralumbar soft tissue, no rash, mild flank pain bilateral, otherwise non-tender, no CVA tenderness bilaterally to percussion. No CT LS midline pain GI: no tenderness to palpation, no masses appreciated. No rebound, guarding, or rigidity noted. No distention Musculoskeletal: Patient has full range of motion of all of the extremities, no motor, sensory, or focal neurological deficits Neurological: A&O x4, normal speech Psychiatric: Cooperative Related Data Home Medications Medication Instructions Recorded Confirmed midodrine 2.5 mg tablet mg 04/10/23 Previous Rx's Medication Instructions Recorded pyridoxine (vitamin B6) 25 mg 25 mg PO TID PRN nausea and 04/10/23 tablet vomiting #20 tabs cephalexin 500 mg capsule 500 mg PO Q12H 5 days #10 caps 04/11/23 ondansetron 4 mg disintegrating 4 mg PO Q4H PRN nausea and 04/11/23 tablet vomiting 3 days #6 tabs promethazine 25 mg rectal 25 mg SC Q6H PRN nausea and 04/11/23 suppository vomiting #6 ea Allergies Allergy/AdvReac Type Severity Reaction Status Date / Time No Known Drug Allergies Allergy Verified 05/02/23 22:50 PFSH PFSH Social History Smoking status: Former smoker Exam Constitutional Vital Signs, click to edit/add: Last Vital Signs Pulse 85 08/23/23 14:05 Resp 20 08/23/23 14:05 BP 108/67 08/23/23 14:05 Pulse Ox 100 08/23/23 14:05 O2 Del Method Room Air 08/23/23 12:28 Course Vital Signs Vital signs: Vital Signs Pulse Rate 98 H 08/23/23 11:45 Respiratory Rate 14 08/23/23 11:45 Blood Pressure 114/64 08/23/23 11:45 Pulse Oximetry 98 08/23/23 11:45 Oxygen Delivery Method Room Air 08/23/23 11:45 Pulse Rate 85 08/23/23 14:05 Respiratory Rate 20 08/23/23 14:05 Blood Pressure 108/67 08/23/23 14:05 Pulse Oximetry 100 08/23/23 14:05 Oxygen Delivery Method Room Air 08/23/23 12:28 Medical Decision Making MDM Narrative Medical decision making narrative: 1350 patient is feeling better after IV fluids and Zofran. Patient be challenged with ice chips. We are waiting for urine sample to be done, otherwise patient will be discharged to follow-up with [employer] is sent home with Zofran prescription 1410 patient feels much better. Patient tolerated ice chips. Patient urine shows no acute findings. Patient is discharged. She has sent him a prescription for Zofran, will continue increase fluids. No questions from patient and mother at discharge Lab Data Labs: Lab Results 12/13/23 12/13/23 Range/Units 11:51 12:05 WBC 8.8 (4.0-11.0) 10^3/uL RBC 3.09 L (4.20-5.40) 10^6/uL Hgb 9.1 L (12.0-16.0) g/dL Hct 28.1 L (36.0-48.0) % MCV 90.9 (81.0-99.0) fL MCH 29.4 (26.7-34.0) pg MCHC 32.4 (29.9-35.2) g/dL RDW 13.1 (11.0-15.0) % Plt Count 200 (150-450) 10^3/uL MPV 9.0 L (9.5-13.5) fL Neut % (Auto) 79.1 H (43.0-75.0) % Lymph % (Auto) 13.1 L (20.5-60.0) % [place] % (Auto) 6.2 (1.7-12.0) % Eos % (Auto) 0.8 L (0.9-7.0) % Baso % (Auto) 0.2 (0.2-2.0) % Neut # (Auto) 6.9 H (1.4-6.5) 10^3/uL Lymph # (Auto) 1.2 (1.2-3.8) 10^3/uL [place] # (Auto) 0.5 (0.3-0.8) 10^3/uL Eos # (Auto) 0.1 (0.0-0.7) 10^3/uL Baso # (Auto) 0.0 (0.0-0.1) 10^3/uL Abs Immat Gran (auto) 0.05 H (0.00-0.03) 10^3/uL Imm/Tot Granulo (auto) 0.6 H (0.0-0.5) % Sodium 135 L (136-145) mmol/L Potassium 3.5 (3.5-5.1) mmol/L Chloride 102 (98-107) mmol/L Carbon Dioxide 24.0 (21.0-32.0) mmol/L Anion Gap 12.5 BUN 8.0 (7.0-18.0) mg/dL Creatinine 0.50 L (0.55-1.02) mg/dL Est GFR ( Amer) >60 (>=60) Est GFR (Non-Af Amer) >60 (>=60) BUN/Creatinine Ratio 16.0 Glucose 83 (74-106) mg/dL Calcium 8.4 L (8.5-10.1) mg/dL Magnesium 1.7 L (1.8-2.4) mg/dL Total Bilirubin 0.3 (0.2-1.0) mg/dL AST 21 (15-37) U/L ALT 16 (14-59) U/L Alkaline Phosphatase 71 (46-116) U/L Total Protein 6.9 (6.4-8.2) g/dL Albumin 3.1 L (3.4-5.0) g/dL Globulin 3.8 g/dL Albumin/Globulin Ratio 0.8 Lipase 60.0 (16.0-77.0) U/L Urine Color Lt. yellow (YELLOW) Urine Clarity Slightly cloudy A (CLEAR) Urine pH 7.5 (5.0-9.0) Ur Specific [place] 1.015 (1.005-1.025) Urine Protein Negative (NEG/TRACE) mg/dL Urine Glucose (UA) Negative (NEGATIVE) mg/dL Urine Ketones Negative (NEGATIVE) mg/dL Urine Occult Blood Negative (NEGATIVE) Urine Nitrite Negative (NEGATIVE) Urine Bilirubin Negative (NEGATIVE) Urine Urobilinogen 1.0 (0.2-1.0) EU/dL Ur Leukocyte Esterase Negative (NEGATIVE) Urine RBC None seen (0-2) #/HPF Urine WBC None seen (NONE SEEN) #/HPF Ur Squamous Epith Cells Moderate A (NONE/RARE) #/LPF Urine Crystals None seen (None Seen) #/HPF Urine Bacteria None seen (NONE SEEN) #/HPF Urine Casts None seen (NONE SEEN) #/LPF Urine Mucus None seen (NONE SEEN) Discharge Plan Discharge Chief Complaint: Nausea/Vomiting/Diarrhea Clinical Impression: , Nausea & vomiting Patient Disposition: Home, Self-Care Time of Disposition Decision: 14:11 Condition: Fair Prescriptions / Home Meds: No Action ondansetron 4 mg tablet,disintegrating 4 mg PO Q4H PRN (Reason: nausea and vomiting) 3 Days Qty: 6 0RF promethazine 25 mg suppository 25 mg SC Q6H PRN (Reason: nausea and vomiting) Qty: 6 0RF cephalexin 500 mg capsule 500 mg PO Q12H 5 Days Qty: 10 0RF midodrine 2.5 mg tablet pyridoxine (vitamin B6) 25 mg tablet 25 mg PO TID PRN (Reason: nausea and vomiting) Qty: 20 0RF Additional Instructions: Continue to increase fluids. Use Zofran as needed to help increase water and Gatorade. Follow-up with [employer]. Stand Alone Forms: Portal Instructions Referrals: Toña Pabon MD [Primary Care Provider] - 1 week
[2023-08-23 12:10] LABS: Basophils Percent Auto 0.2 % (0.2-2.0); Eosinophils Absolute Auto 0.1 10^3/uL (0.0-0.7); Eosinophils Percent Auto 0.8 % (0.9-7.0); Hematocrit 28.1 % (36.0-48.0); Hemoglobin 9.1 g/dL (12.0-16.0); Immature Granulocytes Abs Auto 0.05 10^3/uL (0.00-0.03); Immature Granulocytes Pct Auto 0.6 % (0.0-0.5); Lymphocytes Absolute Auto 1.2 10^3/uL (1.2-3.8); Lymphocytes Percent Auto 13.1 % (20.5-60.0); Mean Corpuscular HGB Conc 32.4 g/dL (29.9-35.2); Mean Corpuscular Hemoglobin 29.4 pg (26.7-34.0); Mean Corpuscular Volume 90.9 fL (81.0-99.0); Monocytes Absolute Auto 0.5 10^3/uL (0.3-0.8); Monocytes Percent Auto 6.2 % (1.7-12.0); Neutrophils Absolute Auto 6.9 10^3/uL (1.4-6.5); Neutrophils Percent Auto 79.1 % (43.0-75.0); Platelet Count 200 10^3/uL (150-450); Red Blood Count 3.09 10^6/uL (4.20-5.40); Red Cell Distribution Width 13.1 % (11.0-15.0); White Blood Count 8.8 10^3/uL (4.0-11.0)
[2023-08-23] MEDS: 0.9 % SODIUM CHLORIDE 1,000 ML 999 ML IV (12:10)
[2023-08-23] MEDS: ONDANSETRON PF 4 MG/2 ML VIAL IV (12:10)
[2023-08-23 12:28] VITALS: O2SAT 98
[2023-08-23 12:32] LABS: Alanine Aminotransferase 16 U/L (14-59); Albumin Globulin Ratio 0.8; Albumin Level 3.1 g/dL (3.4-5.0); Alkaline Phosphatase 71 U/L (46-116); Anion Gap 12.5; Aspartate Amino Transferase 21 U/L (15-37); Bilirubin Total 0.3 mg/dL (0.2-1.0); Calcium 8.4 mg/dL (8.5-10.1); Chloride 102 mmol/L (98-107); Estimated GFR (African America >60 (>=60); Estimated GFR (Non-African Ame >60 (>=60); Globulin 3.8 g/dL; Glucose 83 mg/dL (74-106); Magnesium 1.7 mg/dL (1.8-2.4); Potassium 3.5 mmol/L (3.5-5.1); Sodium 135 mmol/L (136-145); Total Protein 6.9 g/dL (6.4-8.2)
[2023-08-23 13:05] VITALS: BP 111/73; PULSE 86; RESP 18; O2SAT 97
[2023-08-23 13:52] LABS: Bilirubin Urine NEGATIVE (NEGATIVE); Blood Urine NEGATIVE (NEGATIVE); Color Urine LT. YELLOW (YELLOW); Glucose Urine UA NEGATIVE (NEGATIVE); Ketones Urine NEGATIVE (NEGATIVE); Leukocyte Esterase Urine NEGATIVE (NEGATIVE); Nitrite Urine NEGATIVE (NEGATIVE); Protein Urine NEGATIVE (NEG/TRACE); Specific Gravity Urine 1.015 (1.005-1.025); pH Urine 7.5 (5.0-9.0)
--- NOTE | 2023-08-23 13:56 | PC.NURSE ---
Patient reports improvement in nausea. Ice chips and popsicle given at this time.
[2023-08-23 14:00] LABS: Bacteria Urine NONE SEEN #/HPF (NONE SEEN); Cast Seen? NONE SEEN #/LPF (NONE SEEN); Clarity Urine SLIGHTLY CLOUDY (CLEAR); Crystals Seen? None Seen #/HPF (None Seen); Mucus Urine NONE SEEN (NONE SEEN); RBC Urine NONE SEEN #/HPF (0-2); Squamous Epithelial Cell Urine MODERATE #/LPF (NONE/RARE); WBC Urine NONE SEEN #/HPF (NONE SEEN)
[2023-08-23 14:05] VITALS: BP 108/67; PULSE 85; RESP 20; O2SAT 100
--- NOTE | 2023-08-23 14:06 | PC.NURSE ---
Takes popsicle and ice chips without N & V
== END 2023-08-23 14:36 | disposition home or self-care (01) ==
PROVIDERS: Emergency Provider Emergency Medicine; PCP Family Medicine
DX: O21.2 Late vomiting of pregnancy (principal); O99.353 Diseases of the nervous system complicating pregnancy, third trimester; Z3A.27 27 weeks gestation of pregnancy; R56.9 Unspecified convulsions; Z87.891 Personal history of nicotine dependence
CPT/HCPCS: 36415; 80053; 81001; 83690; 83735; 85025; 99284

== ENCOUNTER 2023-09-06 12:31 | Outpatient (OUT) | payer BC, OTHER, SELFPAY ==
[2023-09-06 14:24] LABS: Basophils Absolute Auto 0.1 10^3/uL (0.0-0.1); Basophils Percent Auto 0.4 % (0.2-2.0); Eosinophils Absolute Auto 0.1 10^3/uL (0.0-0.7); Eosinophils Percent Auto 0.5 % (0.9-7.0); Hematocrit 28.8 % (36.0-48.0); Immature Granulocytes Abs Auto 0.08 10^3/uL (0.00-0.03); Immature Granulocytes Pct Auto 0.7 % (0.0-0.5); Lymphocytes Absolute Auto 1.5 10^3/uL (1.2-3.8); Lymphocytes Percent Auto 13.3 % (20.5-60.0); Mean Corpuscular HGB Conc 31.3 g/dL (29.9-35.2); Mean Corpuscular Hemoglobin 28.4 pg (26.7-34.0); Mean Corpuscular Volume 90.9 fL (81.0-99.0); Mean Platelet Volume 10.1 fL (9.5-13.5); Monocytes Absolute Auto 0.6 10^3/uL (0.3-0.8); Monocytes Percent Auto 5.2 % (1.7-12.0); Neutrophils Absolute Auto 8.9 10^3/uL (1.4-6.5); Neutrophils Percent Auto 79.9 % (43.0-75.0); Platelet Count 211 10^3/uL (150-450); Red Blood Count 3.17 10^6/uL (4.20-5.40); Red Cell Distribution Width 12.8 % (11.0-15.0); White Blood Count 11.2 10^3/uL (4.0-11.0)
[2023-09-06 14:38] LABS: Glucose 1 Hour 90 mg/dL
== END 2023-09-06 12:32 | disposition home or self-care (01) ==
LOC: LAB 12:32
PROVIDERS: PCP Family Medicine; Visit Provider Physician Assistant
DX: N92.6 Irregular menstruation, unspecified (principal); Z13.1 Encounter for screening for diabetes mellitus
CPT/HCPCS: 36415; 82950; 85025

== ENCOUNTER 2023-09-19 15:12 | Emergency (ER) | payer BC, OTHER, SELFPAY ==
[2023-09-19 15:15] VITALS: BP 112/73; PULSE 123; RESP 16; TEMP 36.9; O2SAT 98; BMI 25.0
--- NOTE | 2023-09-19 15:23 | PC.NURSE ---
pt provided poor inhalation with lung assessment.
--- NOTE | 2023-09-19 15:25 | ED_ITS ---
HPI - URI/Sore Throat General Chief Complaint: Upper Respiratory Infection Stated Complaint: Upper Respiratory Infection Time Seen by Provider: 09/19/23 15:14 Source: patient History of Present Illness HPI Narrative: Patient is a 22-year-old female At 29 to 30 weeks who presents to the ER for upper respiratory/flulike illness for the last 2 days. She reports temperatures as high as 100.4 Fahrenheit associated with headache, body aches, cough and congestion. She states she is coughing so hard that she is vomiting. She did not take any Tylenol because she states she cannot swallow pills and does not have liquid Tylenol at home. No sick contacts in the home. Patient's mother is at bedside, exam room smells strongly of cigarette smoke Related Data Home Medications Medication Instructions Recorded Confirmed omeprazole 20 mg capsule,delayed 20 mg PO DAILY 09/19/23 09/19/23 release polysaccharide iron complex 180 mg 180 mg PO DAILY 09/19/23 09/19/23 iron capsule (Pro Fe) promethazine 12.5 mg tablet 12.5 mg PO Q6H PRN nausea and 09/19/23 09/19/23 vomiting Previous Rx's Medication Instructions Recorded albuterol sulfate 90 mcg/actuation 2 inh inhalation Q4H PRN shortness 09/19/23 aerosol inhaler of breath or wheezing #8.5 grams azithromycin 200 mg/5 mL oral See Rx Instructions PO .COMPLEX 09/19/23 suspension #37.5 mL ondansetron 4 mg disintegrating 4 mg PO Q6H PRN nausea and 09/19/23 tablet vomiting #12 tabs Allergies Allergy/AdvReac Type Severity Reaction Status Date / Time No Known Drug Allergies Allergy Verified 05/02/23 22:50 Review of Systems ROS Constitutional Reports: fever and chills Ears, nose, mouth, and throat Reports: throat pain and nasal congestion Cardiovascular Denies: chest pain Respiratory Reports: cough; Denies: shortness of breath Gastrointestinal Reports: nausea and vomiting Integumentary/Breast Denies: rash Neurological Reports: headache PFSH PFSH Social History Smoking status: Former smoker Exam Narrative Exam Narrative: Gen.: Awake, alert, in no distress Head: Normocephalic, atraumatic ENT: Moist mucous membranes, Bilateral TMs clear, no pharyngeal erythema or tonsillar edema. Uvula midline with clear speech. Respiratory: No respiratory distress, lungs clear bilaterally, No coughing noted, no wheezing or rhonchi Cardio: Regular rate and rhythm Extremities: Moves extremities equally Psych: Normal mood and affect Neuro: No focal neuro deficit Skin: Warm, dry, intact Constitutional Vital Signs, click to edit/add: Last Vital Signs Temp 98.5 F 09/19/23 15:15 Pulse 123 H 09/19/23 15:15 Resp 16 09/19/23 15:15 BP 112/73 09/19/23 15:15 Pulse Ox 98 09/19/23 15:15 O2 Del Method Room Air 09/19/23 15:15 Course Vital Signs Vital signs: Vital Signs Temperature 98.5 F 09/19/23 15:15 Pulse Rate 123 H 09/19/23 15:15 Respiratory Rate 16 09/19/23 15:15 Blood Pressure 112/73 09/19/23 15:15 Pulse Oximetry 98 09/19/23 15:15 Oxygen Delivery Method Room Air 09/19/23 15:15 Temperature 98.5 F 09/19/23 15:15 Pulse Rate 123 H 09/19/23 15:15 Respiratory Rate 16 09/19/23 15:15 Blood Pressure 112/73 09/19/23 15:15 Pulse Oximetry 98 09/19/23 15:15 Oxygen Delivery Method Room Air 09/19/23 15:15 MDM - URI/Sore Throat MDM Narrative Medical decision making narrative: Heart rate rechecked prior to discharge, patient is negative for influenza, strep, COVID. Vital signs are otherwise unremarkable. Based on , we will treat with azithromycin, albuterol inhaler and Zofran. Follow-up with PCP and BUSINESS ADMINISTRATION PROGRAM CHAIR and return to the ER if symptoms change or worsen Medical Records Attestation: I reviewed the patient's medical records. Lab Data Attestation: I reviewed the patient's lab results. Labs: Lab Results 09/19/23 Range/Units 15:18 Influenza Type A Ag Negative Influenza Type B Ag Negative SARS-CoV-2 Ag (CV2AG) Negative (NEGATIVE) Streptococcus Screen Negative Discharge Plan Discharge Chief Complaint: Upper Respiratory Infection Clinical Impression: Upper respiratory infection Patient Disposition: Home, Self-Care Time of Disposition Decision: 16:00 Condition: Good Prescriptions / Home Meds: New albuterol sulfate 90 mcg/actuation HFA aerosol inhaler 2 inh inhalation Q4H PRN (Reason: shortness of breath or wheezing) Qty: 8.5 0RF ondansetron 4 mg tablet,disintegrating 4 mg PO Q6H PRN (Reason: nausea and vomiting) Qty: 12 0RF azithromycin 200 mg/5 mL suspension for reconstitution See Rx Instructions .ROUTE .COMPLEX Qty: 37.5 0RF Rx Instructions: take 12.5 mL (500 mg) by mouth today (day 1), then 6.25 mL (250 mg) daily for 4 days (days 2-5) No Action omeprazole 20 mg capsule,delayed release(DR/EC) 20 mg PO DAILY Pro Fe 180 mg iron capsule 180 mg PO DAILY promethazine 12.5 mg tablet 12.5 mg PO Q6H PRN (Reason: nausea and vomiting) Instructions: Upper Respiratory Infection (ED) Stand Alone Forms: Portal Instructions Referrals: Toña Pabon MD [Primary Care Provider] - 1 week
--- OUTSIDE RECORDS SUMMARY | 2023-09-19 15:25 | XMS_ITS | CCD ---
Author Name Unknown Address [address] [place] [address] Organization [facility] Care Team Providers Care Calender Wind Up Helper Name Role Phone TOÑA PIERRE Primary Care Physician IGNACIO PROVIDERTOÑA Referring Unavailab Sal Cazares Attending Unavailable Elsi SUE Referring Unavailable Sal DOWNS Attending Unavailable MD Toña Pierre Primary Care Provider CRISTIN Morales Emergency Provider [phone] Kaci Morales Attending Unavailable Kaci Morales Admitting Unavailable Toña Pierre Primary Care Unavailable IGNACIO, DR TOÑA Dash Primary Care Unavailable GLADYS DWYER Attending Unavailable GLADYS DWYER Consulting Unavailable GLADYS DWYER Admitting Unavailable CHERRIE ROOT Consulting Unavailable RACH, DR CLARY Hdez Consulting Unavailable GLADYS DWYER Admitting Unavailable GLADYS DWYER Attending Unavailable IGNACIO, DR TOÑA Dash Primary Care Unavailable GLADYS DWYER Consulting Unavailable RACH, DR CLARY Hdez Consulting Unavailable GLADYS DWYER Admitting Unavailable GLADYS DWYER Attending Unavailable IGNACIO, DR TOÑA Dash Primary Care Unavailable GLADYS DWYER Consulting Unavailable RACH, DR CLARY Hdez Consulting Unavailable GLADYS DWYER Admitting Unavailable GLADYS DWYER Attending Unavailable IGNACIO, DR TOÑA Dash Primary Care Unavailable GLADYS DWYER Consulting Unavailable IGNACIO, DR TOÑA Dash Admitting Unavailable IGNACIO, DR TOÑA Dash Attending Unavailable SANDRA, DR CHERRIE Vasquez Consulting Unavailable IGNACIO, DR TOÑA Dash Primary Care Unavailable PIERRE, DR TOÑA Dash Consulting Unavailable IGNACIO, DR TOÑA Dash Primary Care Unavailable HAIM ., DR CALZADA Attending Unavailable HAIM ., DR CALZADA Consulting Unavailable HAIM ., DR CALZADA Admitting Unavailable HAIM Bowles, DR CALZADA Attending Unavailable IGNACIO, DR TOÑA Dash Primary Care Unavailable HAIM ., DR CALZADA Admitting Unavailable HAIM ., DR CALZADA Consulting Unavailable RACH, DR CLARY Hdez Consulting Unavailable IGNACIO, DR TOÑA Dash Consulting Unavailable Toña Pierre Unavailable JulianaTiesha Unavailable STEPHEN FOX Attending Unavailable MELINA HAMM Attending Unavailable Unavailable Primary Care Provider Unavailsally dash Allergies Allergy Classification Reported Allergen(s) Allergy Type Date of Onset Reaction(s) Facility (6 sources) cefdinir; Translations: [cefdinir] Drug Allergy Vomiting (disorder) [facility] [place] (6 sources) NITROFURANTOIN, MACROCRYSTALS / Nitrofurantoin, Monohydrate; Translations: [nitrofurantoin] Drug Allergy Vomiting (disorder) [facility] [place] (1 source) Penicillins Drug allergy (disorder) 11-01-19 22 [facility] (3 sources) patient allergy list reviewed by nurse or physicia Propensity to adverse reactions 04-09-20 19 Comment:Done [employer] Other (3 sources) Allergies Reconciled Propensity to adverse reactions 07-26-20 21 Unknown [employer] Other Medications Current Medications Medication Drug Class(es) Dates Sig (Normalized) Sig (Original) amoxicillin 500 mg oral capsule (1 source) Penicillin-class Antibacterial Start: 07-22-2023 take 1 capsule by mouth every eight hours Amoxicillin 500 MG 1 capsule Orally three times a day for 10 day(s) Jul, Active cephalexin 500 mg oral capsule (2 sources) Cephalosporin Antibacterial Start: 10-17-2022 take 500 mg by mouth four times daily Cephalexin Active 500 MG PO Four times daily 40 October 17, 2022 12:00am hydrOXYzine hydrochloride 10 mg oral tablet (1 source) Antihistamine Start: 08-08-2023 take 1 tablet by mouth three times daily as needed hydrOXYzine (ATARAX) 10 mg tablet Take 1 tablet (10 mg total) by mouth 3 (three) times a day as needed for itching. 30 tablet 0 08/08/2023 Active midodrine hydrochloride 2.5 mg oral tablet (4 sources) alpha-Adrenergic Agonist Start: 05-30-2022 midodrine 2.5 mg oral tablet as directed, Refills(s) 0 Start Date: 05/30/22 Status: Ordered Start: 10-14-2020 take 5 mg by mouth once daily Midodrine Active 5 MG PO Daily October 14, 2020 12:00am take 1 tablet by braden every twelve hours Midodrine HCl 5 MG 1 tablet Orally Twice a day for 30 days Active omeprazole 20 mg delayed release oral capsule (2 sources) Proton Pump Inhibitor Start: 09-18-2023 take 1 capsule by mouth in the morning omeprazole (PriLOSEC) 20 mg capsule Indications: Cardiovascular disease of mother in , antepartum, third trimester , Postural orthostatic tachycardia syndrome , cardiac echogenic focus, antepartum, single or unspecified fetus , Heartburn during in third trimester Take 1 capsule (20 mg total) by mouth in the morning. 30 capsule 6 09/18/2023 Active Start: 05-31-2022 take 1 capsule by [facility] once daily omeprazole 20 mg Cap-DR 20 mg = 1 cap(s), Oral, Daily, # 30 cap(s), Refills(s) 3, Pharmacy: [id number], 163.8, cm, 05/31/22 14:35:00 EDT, Height/Length Dosing, 53.6, kg, 05/31/22 14:35:00 EDT, Weight Dosing Start Date: 05/31/22 Status: Ordered ondansetron 4 mg oral tablet (1 source) Serotonin-3 Receptor Antagonist take 1 tablet by mouth every eight hours as needed for nausea and vomiting ondansetron (ZOFRAN) 4 mg tablet Take 1 tablet (4 mg total) by mouth every 8 (eight) hours as needed for nausea or vomiting. 0 Active PNV 19/iron ps,heme/folic/dha ( MV & MIN ORAL) (1 source) PNV 19/iron ps,heme/folic/dha ( MV & MIN ORAL) Take 1 Gum by mouth in the morning. 0 Active Vit w/ Fe Bisg-FA (3 sources) Vit w/ Fe Bisg-FA Active Completed/Discontinued Medications Medication Drug Class(es) Dates Sig (Normalized) Sig (Original) [id number] 200 actuat albuterol 0.09 mg/actuat metered dose inhaler (3 sources) beta2-Adrenergic Agonist Start: 05-09-2023 take 2 puff(s) by inhalation every four hours as needed Albuterol Sulfate HFA 108 (90 Base) MCG/ACT 2 puff Inhalation every 4 hrs prn Apr, Active Start: 05-09-2023 take 2 puff(s) by in halation every four hours as needed Albuterol Sulfate HFA 108 (90 Base) MCG/ACT 2 puff Inhalation every 4 hrs prn Apr, Not-Taking famotidine 20 mg oral tablet (1 source) Histamine-2 Receptor Antagonist Start: 08-08-2023 End: 09-18-2023 take 1 tablet by mouth in the morning, then take 1 tablet by mouth at bedtime famotidine (PEPCID) 20 mg tablet Take 1 tablet (20 mg total) by mouth in the morning and 1 tablet (20 mg total) before bedtime. 60 tablet 3 08/08/2023 09/18/2023 Discontinued (Alternate therapy) ibuprofen 600 mg oral tablet (1 source) Nonsteroidal Anti-inflammatory Drug Start: 11-19-2019 End: 10-14-2020 take 600 mg by mouth three times daily Ibuprofen Discontinued 600 MG PO Three times daily November 18, 2019 11:00pm October 14, 2020 3:45pm meloxicam 15 mg oral tablet (4 sources) Nonsteroidal Anti-inflammatory Drug take 1 tablet by mouth every twenty-four hours Meloxicam 15 MG 1 tablet Orally Once a day Not-Taking Problems Active Problems Problem Classification Problem Date Documented Date Episodic/Chronic Abdominal pain (20 sources) Epigastric pain; Translations: [Epigastric pain] Onset: 04-09-2019 Episodic Anxiety disorders (6 sources) Anxiety disorder; Translations: [Anxiety disorder, unspecified] Onset: 05-31-2022 Chronic Asthma (4 sources) Mild intermittent asthma; Translations: [Mild intermittent asthma, uncomplicated] Chronic Attention-deficit, conduct, and disruptive behavior disorders (3 sources) Attention deficit hyperactivity disorder, predominantly inattentive type; Translations: [Attention-deficit hyperactivity disorder, 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 Cardiac dysrhythmias (2 sources) Postural orthostatic tachycardia syndrome ; Translations: [Postural orthostatic tachycardia syndrome] Onset: 09-18-2023 09-18-2023 Chronic Chronic obstructive pulmonary disease and bronchiectasis (7 sources) Bronchitis; Translations: [Bronchitis, not specified as acute or chronic] Episodic Coma; stupor; and brain damage (3 sources) Coma; Translations: [Unspecified coma] Episodic Conditions associated with dizziness or vertigo (1 source) Dizziness and giddiness; Translations: [Dizziness and giddiness] Onset: 10-17-2022 Episodic Contraceptive and procreative management (3 sources) Contraception care education done; Translations: [Encounter for initial prescription of contraceptive pills] Episodic Deficiency and other anemia (3 sources) Nutritional anemia; Translations: [Nutritional anemia, unspecified] Episodic Genitourinary symptoms and ill-defined conditions (3 sources) Genitourinary symptoms; Translations: [Unspecified symptoms and signs involving the genitourinary system] Episodic Joint disorders and dislocations; trauma-related (3 sources) Derangement of knee; Translations: [Unspecified internal derangement of left knee] Chronic Menstrual disorders (3 sources) Dysmenorrhea; Translations: [Dysmenorrhea, unspecified] Onset: 07-12-2018 Chronic Nonspecific chest pain (4 sources) Chest wall pain; Translations: [Other chest pain] 10-14-2020 Episodic Other circulatory disease (8 sources) Orthostatic hypotension; Translations: [Orthostatic hypotension] 05-30-2022 Episodic Other circulatory disease (3 sources) Elevated blood-pressure reading without diagnosis of hypertension; Translations: [Elevated blood-pressure reading, without diagnosis of hypertension] Episodic Other complications of ; puerperium affecting management of mother (2 sources) heart echogenicity on obstetric ultrasound scan; Translations: [ cardiac echogenic focus, antepartum, single or unspecified fetus] Onset: 09-18-2023 09-18-2023 Episodic Other complications of (2 sources) Disorder of cardiovascular system; Translations: [Diseases of the circulatory system complicating , third trimester] Onset: 09-18-2023 09-18-2023 Episodic Other complications of (2 sources) Heartburn; Translations: [Other specified related conditions, third trimester] Onset: 09-18-2023 09-18-2023 Episodic Other connective tissue disease (4 sources) Pain in left lower leg; Translations: [PAIN IN LEFT LOWER LEG] Onset: 10-04-2022 Episodic Other connective tissue disease (4 sources) Pain in limb; Translations: [Pain in left lower leg] Episodic Other disorders of stomach and duodenum (1 source) Indigestion 05-31-2022 Episodic Other injuries and conditions due to external causes (1 source) Injury of head; Translations: [Unspecified injury of head, initial encounter] 10-17-2022 Episodic Other injuries and conditions due to external causes (8 sources) Other injury of other muscle(s) and tendon(s) at lower leg level, left leg, subsequent encounter; Translations: [OTH INJ OTH MSC TEND LOW LT LEG SUB] Onset: 11-02-2022 Episodic Other injuries and conditions due to external causes (4 sources) Other injury of other muscle(s) and tendon(s) at lower leg level, left leg, initial encounter; Translations: [OTH INJ OTH MSC TEND LW LT LEG INIT] Onset: 08-16-2022 Episodic Other injuries and conditions due to external causes (3 sources) Injury of ankle; Translations: [Unspecified injury of left ankle, initial encounter] Episodic Other injuries and conditions due to external causes (3 sources) Injury of muscle and tendon at lower leg level; Translations: [Other injury of other muscle(s) and tendon(s) at lower leg level, left leg, initial encounter] Episodic Other injuries and conditions due to external causes (3 sources) Injury of upper extremity; Translations: [Unspecified injury of right wrist, hand and finger(s), initial encounter] Episodic Other non-traumatic joint disorders (1 source) Pain in left ankle and joints of left foot; Translations: [PAIN IN LEFT ANKLE] Onset: 08-20-2022 Episodic Other non-traumatic joint disorders (10 sources) Arthralgia of the ankle and/or foot; Translations: [Pain in left ankle and joints of left foot] Onset: 10-22-2018 Episodic Other screening for suspected conditions (not mental disorders or infectious disease) (3 sources) Culture positive for methicillin resistant Staphylococcus aureus; Translations: [Abnormal electrocardiogram [ECG] [EKG]] Onset: 11-10-2015 11-13-2015 Episodic Comment on above: MRSA in axilla absce ss 11/10/15 Other upper respiratory disease (3 sources) Allergic rhinitis; Translations: [Allergic rhinitis, unspecified] Onset: 07-09-2018 Chronic Other upper respiratory infections (3 sources) Chronic sinusitis; Translations: [Chronic sinusitis, unspecified] Chronic Other upper respiratory infections (4 sources) Acute maxillary sinusitis; Translations: [Acute recurrent maxillary sinusitis] Onset: 07-12-2018 Episodic Otitis media and related conditions (1 source) Otitis media, unspecified, right ear Episodic Ovarian cyst (12 sources) Cyst of ovary; Translations: [Unspecified ovarian cyst, unspecified side] Onset: 12-08-2021 05-30-2022 Episodic Residual codes; unclassified (3 sources) Normal body mass index; Translations: [Body mass index (BMI) 20.0-20.9, adult] Episodic Sprains and strains (7 sources) Sprain of unspecified ligament of left ankle, initial encounter; Translations: [Sprain of ankle] Onset: 07-26-2022 Episodic Substance-related disorders (3 sources) Cannabis misuse; Translations: [Cannabis use, unspecified, uncomplicated] Onset: 05-31-2022 Episodic Syncope (8 sources) Syncope; Translations: [Syncope and collapse] Onset: 10-22-2018 10-17-2022 Episodic Unclassified (1 source) Decreased body mass index 05-31-2022 Urinary tract infections (1 source) Urinary tract infectious disease 11-10-2015 Episodic Past or Other Problems Problem Classification Problem Date Documented Da te Episodic/Chronic Cardiac dysrhythmias (3 sources) Tachycardia; Translations: [Tachycardia, unspecified] Onset: 12-27-2018 Episodic Mycoses (3 sources) Tinea corporis; Translations: [Tinea corporis] Onset: 07-09-2018 Episodic Other connective tissue disease (3 sources) Spasm; Translations: [Spasm of muscle] Onset: 10-22-2018 Episodic Other injuries and conditions due to external causes (4 sources) Unspecified injury of left ankle, initial encounter; Translations: [UNSPECIFIED INJURY LT ANKLE INITIAL] Onset: 07-12-2022 Episodic Skin and subcutaneous tissue infections (3 sources) Cellulitis and abscess of upper arm; Translations: [Cellulitis and abscess of upper arm and forearm] Onset: 07-09-2018 Episodic Unclassified (1 source) Ankle sprain and strain 11-19-2019 Unclassified (4 sources) Congenital pes cavus of left foot; Translations: [Congenital pes cavus, left foot] Unclassified (3 sources) Need for prophylactic vaccination and inoculation against unspecified single bacterial disease; Translations: [Need for prophylactic vaccination and inoculation against unspecified single bacterial disease] Onset: 04-09-2019 Unclassified (1 source) Contact with and (suspected) exposure to covid-19 Z20.822 Results Test Name Value Interpretation Reference Range Facility 36on 08-15-2023 36 Msg left on patients phone today regarding telehealth. Normal [facility] Office Visiton 07-27-2023 Follow-up visit [id number] Jenny Scott Navneet 2000 F Date Provider Department Center 07/27/2023 289-MELINA HAMM [facility] No family history on file Level of Service:97122 [place] OFFICE/OUTPATIENT ESTABLISHED MOD MDM 30-39 MIN () Reason for Visit and Comments: Follow-up [583854] - GAS CHECK PAD MAKER LEAKY VALVE, HYPOTENSION Syncope [506] Normal [facility] COVID Quick Testingon 2022 Result Negative [employer] Other Quick Strepon 07-22-2023 S. pyogenes Org specific cx Ql (Throat) Negative [employer] Other Quick Strep [employer] Other MRI LEG LT WO CONon 11-03-19 23 MRI LEG LT WO CON EXAM: MRI LEG LT WO CON HISTORY: Lower leg pain COMPARISON: X rays 10/04/2022 TECHNIQUE: Multiplanar, multi sequential MRI sequences were performed FINDINGS: This study is degraded as the T1-weighted sequences were performed with fat saturation. No bone marrow edema, fracture, dislocation, subluxation or osseous lesion. The superficial subcutaneous soft tissues exhibit no gross edema, hematoma, mass or cyst. No muscle discrete edema, hematoma, atrophy, mass or cyst. The visualized fascia are unremarkable. IMPRESSION: No gross visualized irregularity on this MRI, however, this study is limited as the T1-weighted sequences were performed with fat saturation. The axial and coronal T1-weighted sequences should be repeated without fat saturation and an addendum to this MRI will be made. Electronically authenticated by: CHERRIE ROOT Date: 2022-11-02 23:11 Normal [facility] Amphetamine Screen Ql (U)Ord ered By: Kaci Morales on 10-17-2022 Amphetamines Ql (U) Negative Negative [facility] Automated erythrocytes count in urine sediment (number/area)Ordered By: Kaci Morales on 10-17-2022 RBC Auto (Urine sed) [#/Area] 20-49 [HPF] 0-4 [facility] Automated leukocytes count i n urine sediment (number/area)Ordered By: Kaci Morales on 10-17-2022 WBC Auto (Urine sed) [#/Area] 20-49 [HPF] 0-4 [facility] Automated urine hyaline cast s count (number/volume)Ordered By: Kaci Morales on 10-17-2022 Hyaline casts Auto (U) [#/Vol] None seen [LPF] 0-1 [facility] Automated urine sediment joe cium oxalate crystal count by microscopy (number/high powOrdered By: Kaci Morales on 10-17-2022 Calcium oxalate crystals LM.HPF (Urine sed) [#/Area] 3+ [HPF] [facility] Barbiturates [Presence] in U rineOrdered By: Kaci Morales on 10-17-2022 Barbiturates Ql (U) Negative Negative [facility] Basic Metabolic Panelon Anion gap [Moles/Vol] 13.2 mmol/L Normal 6.0-15.0 [facility] Comment on above: Performed By: #### H S TROP, BMP, CBC #### [facility] [address] [place] [address] [place] Calcium [Mass/Vol] 9.5 mg/dL Normal 8.2-10.2 [facility] Comment on above: Performed By: #### H S TROP, BMP, CBC #### [facility] [address] [place] [id number] [place] Chloride [Moles/Vol] 103 mmol/L Normal 95-114 [facility] Comment on above: Performed By: #### H S TROP, BMP, CBC #### [facility] [address] [place] [address] CO2 [Moles/Vol] 25.5 mmol/L Normal 22.0-30.0 [facility] Comment on above: Performed By: #### H S TROP BMP, CBC #### [address] Creatinine [Mass/Vol] 0.80 mg/dL Normal 0.44-1.03 [facility] Comment on above: Performed By: #### H S TROP, BMP, CBC #### [place] [address] [place] Creatinine Clr Calc Pharmacy 87.98 [facility] Comment on above: Result Comment: PERF ORMED BY: [place] [address] PATHOLOGIST DECK ENGINEER ZEB BASURTO M.D. Performed By: #### H S TROP BMP, CBC #### [address] Estimated GFR ( Adelita > 60 [facility] Comment on above: Result Comment: GFR estimated reference range: According to KDOQI guidelines, <60 ml/min/1.73m2 is sufficient to diagnose a patient with chronic kidney disease. Performed By: #### H S TROP, BMP, CBC #### [address] Estimated GFR (Non- Am > 60 [facility] Comment on above: Performed By: #### H S TROP, BMP, CBC #### [address] Glucose [Mass/Vol] 118 mg/dL High 70-100 [facility] Comment on above: Result Comment: [place] om Glucose Reference Range is dependent on time and content of last meal. Glucose of more than 200 mg/dL in a nonstressed, ambulatory subject supports the diagnosis of Diabetes Mellitus. ADA recommended reference range Performed By: #### H S TROP, BMP, CBC #### [address] Potassium [Moles/Vol] 3.7 mmol/L Normal 3.5-5.1 [facility] Comment on above: Performed By: #### H S TROP, BMP, CBC #### [facility] [address] Sodium [Moles/Vol] 138 mmol/L Normal 136-146 [facility] Comment on above: Performed By: #### H S TROP, BMP, CBC #### [facility] [address] Urea nitrogen [Mass/Vol] 10 mg/dL Normal 9-23 [facility] Comment on above: Performed By: #### H S TROP, BMP, CBC #### [facility] [address] Basophils Auto (Bld) [#/Vol] Ordered By: Kaci Morales on 10-17-2022 Basophils (Bld) [#/Vol] 0.0 10*3/uL 0.0-0.2 [facility] Basophils/100 WBC Auto (Bld) Ordered By: Kaci Morales on 10-17-2022 Basophils/100 WBC (Bld) 0.4 % . [facility] Benzodiazepines [Presence] i n UrineOrdered By: Kaci Morales on 10-17-2022 Benzodiazepines Ql (U) Negative Negative [facility] Bilirubin Test strip Ql (U)O rdered By: Kaci Morales on 10-17-2022 Bilirubin Ql (U) 1+ Negative [facility] CT head/brain wo conon 10-17 CT head/brain wo con [facility] Main [place] [address] [place] [address] CT Scan Report Signed Patient: Jenny Scott MR#: [id number] : 2000 Acct:[id number] Age/Sex: 21 / F ADM Date: 10/17/22 Loc: ER Room: Type: [facility] ER Attending Dr: Copies to: Kaci Morales APRN Ordering Provider: Kaci Morales APRN Date of Service: 10/17/22 CT/CT head/brain wo con: head injury/ syncope CT BRAIN WITHOUT CONTRAST: CLINICAL HISTORY: Patient passed out and hit head on the floor. COMPARISON: None TECHNIQUE: Contiguous axial unenhanced images were obtained through the brain. This CT exam was performed using one or more following dose reduction techniques: Automated exposure control, adjustment of the mA and/or kV according to patient size, or use of iterative reconstruction technique. FINDINGS: The ventricles are within normal limits for size and position. There are no areas of abnormal attenuation. There is no hemorrhage, mass effect or extra-axial collections. The calvarium is intact. The imaged paranasal sinuses and mastoid air cells are clear. CT/CT head/brain wo con IMPRESSION: NO ACUTE INTRACRANIAL TRAUMA. Impression dictated by: Maricruz Vick M.D.10/17/2022 5:07 PM Dictation Location: [place] [address] Transcribed By: RUT 10/17/221706 Dictated By: Maricruz Vick MD 10/17/221703 Signed By: 10/17/221706 Normal [facility] Cannabinoids [Presence] in U rine by Screen methodOrdered By: Kaci Morales on 10-17-2022 Cannabinoids Screen Ql (U) Positive Negative [facility] Comment on above: These are unconfirme d results and should not be used for legal purposes. Drug Cut-Off Concentration: AMPH 1000 ng/mL JERRY 200 ng/mL BOBBI 200 ng/mL COCM 300 ng/mL OP 300 ng/mL PCP 25 ng/mL THC 20 ng/mL Casts typing in urine sedime nt by light microscopyOrdered By: Kaci Morales on 10-17-2022 Casts LM Nom (Urine sed) None seen [LPF] None Seen [facility] Color Auto (U)Ordered By: Yuriy Morales on 10-17-2022 Color (U) Dark yellow Yellow [facility] Complete Blood Count Auto Di ffon 10-17-2022 Basophils (Bld) [#/Vol] 0.0 10*3/uL Normal 0.0-0.2 [facility] Comment on above: Result Comment: PERF ORMED BY: [facility] [address] [place] [address] PATHOLOGIST DECK ENGINEER ZEB BASURTO M.D. Performed By: #### H S TROP, BMP, CBC #### [facility] [address] [place] [address] [place] Basophils/100 WBC (Bld) 0.4 % Normal . [facility] Comment on above: Performed By: #### H S TROP, BMP, CBC #### [facility] [address] Eosinophils (Bld) [#/Vol] 0.0 10*3/uL Normal 0.0-0.45 [facility] Comment on above: Performed By: #### H S TROP, BMP, CBC #### [address] Eosinophils/100 WBC (Bld) 0.4 % Normal . [facility] Comment on above: Performed By: #### H S TROP, BMP, CBC #### [address] Erythrocyte distribution width (RBC) [Ratio] 13.0 % Normal 11.9-15.3 [facility] Comment on above: Performed By: #### H S TROP, BMP, CBC #### [address] Hematocrit (Bld) [Volume fraction] 37.2 % Normal 34.0-46.4 [facility] Comment on above: Performed By: #### H S TROP, BMP, CBC #### [place] [address] [place] Hemoglobin (Bld) [Mass/Vol] 12.4 g/dL Normal 11.8-15.4 [facility] Comment on above: Performed By: #### H S TROP, BMP, CBC #### [place] [address] [place] Lymphocytes (Bld) [#/Vol] 1.1 10*3/uL Normal 1.00-4.8 [facility] Comment on above: Performed By: #### H S TROP, BMP, CBC #### [place] [address] [place] Lymphocytes/100 WBC (Bld) 14.5 % Normal . [facility] Comment on above: Performed By: #### H S TROP BMP, CBC #### [address] MCH (RBC) [Entitic mass] 29.4 pg Normal 24.7-34.3 [facility] Comment on above: Performed By: #### H S TROP, BMP, CBC #### [address] MCV (RBC) [Entitic vol] 88.6 fL Normal 80-100 [facility] Comment on above: Performed By: #### H S TROP BMP, CBC #### [address] Mean Corpuscular HGB Conc 33.2 g/dL Normal 32.0-35.0 [facility] Comment on above: Performed By: #### H S TROP, BMP, CBC #### [address] Monocytes (Bld) [#/Vol] 0.4 10*3/uL Normal 0.0-0.8 [facility] Comment on above: Performed By: #### H S TROP, BMP, CBC #### [address] Monocytes/100 WBC (Bld) 14.49 % Normal 0.00-20.00 [facility] Comment on above: Performed By: #### H S TROP, BMP, CBC #### [address] Monocytes/100 WBC (Bld) 5.2 % Normal . [facility] Comment on above: Performed By: #### H S TROP, BMP, CBC #### [address] Neutrophils (Bld) [#/Vol] 5.8 10*3/uL Normal 1.8-7.7 [facility] Comment on above: Performed By: #### H S TROP, BMP, CBC #### [place] [address] [place] [address] [place] Neutrophils/100 WBC (Bld) 79.5 % Normal . [facility] Comment on above: Performed By: #### H S TROP BMP, CBC #### [facility] [address] NRBC% 0.1 /100{WBC} Normal 0-0.5 [facility] Comment on above: Performed By: #### H S TROP BMP, CBC #### [facility] [address] Platelet mean volume (Bld) [Entitic vol] 7.9 fL Normal 6.3-10.7 [facility] Comment on above: Performed By: #### H S TROP BMP, CBC #### [facility] [address] Platelets (Bld) [#/Vol] 229 10*3/uL Normal 150-450 [facility] Comment on above: Performed By: #### H S TROP BMP, CBC #### [facility] [address] RBC (Bld) [#/Vol] 4.19 10*6/uL Normal 3.60-5.00 [facility] Comment on above: Performed By: #### H S TROP BMP, CBC #### [address] WBC (Bld) [#/Vol] 7.3 10*3/uL Normal 3.8-11.6 [facility] Comment on above: Performed By: #### H S TROP BMP, CBC #### [place] [address] [place] Creatinine and Glomerular fi ltration rate.predicted panel (S/P/Bld)Ordered By: Kaci Morales on 10-17-2022 Creatinine [Mass/Vol] 0.80 mg/dL 0.44-1.03 [facility] Dipstick and Microscopicon 0 10-17-2022 Appearance (U) Cloudy Critically abnormal Clear [facility] Comment on above: Order Comment: Name Collection Type:: Clean-Voided Midstream Performed By: #### A DDONUAPLUS, UHCG, CUU #### [facility] [address] [place] [address] [place] Bacteria,Urine 1+ High None Seen [facility] Comment on above: Order Comment: Name Collection Type:: Clean-Voided Midstream Performed By: #### A DDONUAPLUS, UHCG, CUU #### [facility] [address] [place] [address] [place] Bilirubin,Urine 1+ High Negative [facility] Comment on above: Order Comment: Name Collection Type:: Clean-Voided Midstream Performed By: #### A DDONUAPLUS, UHCG, CUU #### [facility] [address] [place] [address] [place] Calcium Oxalate Crystals,Urine 3+ Normal [facility] Comment on above: Order Comment: Name Collection Type:: Clean-Voided Midstream Performed By: #### A DDONUAPLUS, UHCG, CUU #### [facility] [address] [place] [address] [place] Color (U) Dark Yellow Critically abnormal Yellow [facility] Comment on above: Order Comment: Name Collection Type:: Clean-Voided Midstream Performed By: #### A DDONUAPLUS, UHCG, CUU #### [facility] [address] [place] [address] [place] Glucose Ql (U) Normal Normal Normal [facility] Comment on above: Order Comment: Name Collection Type:: Clean-Voided Midstream Performed By: #### A DDONUAPLUS, UHCG, CUU #### [facility] [address] [place] [address] [place] Hyaline Casts,Urine None Seen Normal 0-1 [facility] Comment on above: Order Comment: Name Collection Type:: Clean-Voided Midstream Performed By: #### A DDONUAPLUS, UHCG, CUU #### [facility] [address] [place] [address] [place] Ketones Ql (U) 1+ High Negative [facility] Comment on above: Order Comment: Name Collection Type:: Clean-Voided Midstream Performed By: #### A DDONUAPLUS, UHCG, CUU #### [facility] [address] [place] [address] Leukocyte esterase Test strip Ql (U) 2+ High Negative [facility] Comment on above: Order Comment: Name Collection Type:: Clean-Voided Midstream Performed By: #### A DDONUAPLUS, UHCG, CUU #### [address] Nitrite,Urine Negative Normal Negative [facility] Comment on above: Order Comment: Name Collection Type:: Clean-Voided Midstream Performed By: #### A DDONUAPLUS, UHCG, CUU #### [address] Occult Blood,Urine 3+ High Negative [facility] Comment on above: Order Comment: Name Collection Type:: Clean-Voided Midstream Performed By: #### A DDONUAPLUS, UHCG, CUU #### [address] Othe Crystals,Urine None Seen Normal [facility] Comment on above: Order Comment: Name Collection Type:: Clean-Voided Midstream Performed By: #### A DDONUAPLUS, UHCG, CUU #### [facility] [address] [place] [address] Other Casts,Urine None Seen Normal None Seen [facility] Comment on above: Order Comment: Name Collection Type:: Clean-Voided Midstream Performed By: #### A DDONUAPLUS, UHCG, CUU #### [address] pH (U) 5.0 [pH] Normal 5.0-9.0 [facility] Comment on above: Order Comment: Name Collection Type:: Clean-Voided Midstream Performed By: #### A DDONUAPLUS, UHCG, CUU #### [address] Protein (U) [Mass/Vol] 100 mg/dL High Negative [facility] Comment on above: Order Comment: Name Collection Type:: Clean-Voided Midstream Performed By: #### A DDONUAPLUS, UHCG, CUU #### [facility] [address] [place] [address] RBC,Urine 20-49 High 0-4 [facility] Comment on above: Order Comment: Name Collection Type:: Clean-Voided Midstream Performed By: #### A DDONUAPLUS, UHCG, CUU #### [address] Specificy [place],Urine 1.035 High 1.001-1.030 [facility] Comment on above: Order Comment: Name Collection Type:: Clean-Voided Midstream Performed By: #### A DDONUAPLUS, UHCG, CUU #### [address] Squamous Epithelial Cell,Urine 5-9 High 0-2 [facility] Comment on above: Order Comment: Name Collection Type:: Clean-Voided Midstream Performed By: #### A DDONUAPLUS, UHCG, CUU #### [address] Urobilinogen,Urine Normal Normal Normal [facility] Comment on above: Order Comment: Name Collection Type:: Clean-Voided Midstream Performed By: #### A DDONUAPLUS, UHCG, CUU #### [address] WBC,Urine 20-49 High 0-4 [facility] Comment on above: Order Comment: Name Collection Type:: Clean-Voided Midstream Performed By: #### A DDONUAPLUS, UHCG, CUU #### [place] [address] [place] Drug Screen,Urineon 10-17-19 23 Amphetamine Screen,Urine Negative Normal Negative [facility] Comment on above: Performed By: #### U RDS #### [address] [place] [address] [place] Barbiturate Screen,Urine Negative Normal Negative [facility] Comment on above: Performed By: #### U RDS #### [place] [address] [place] Benzodiazepines Screen,Urine Negative Normal Negative [facility] Comment on above: Performed By: #### U RDS #### [place] [address] [place] Cannabinoid Screen,Urine Positive High Negative [facility] Comment on above: Result Comment: Thes e are unconfirmed results and should not be used for legal purposes. Drug Cut-Off Concentration: AMPH 1000 ng/mL JERRY 200 ng/mL BOBBI 200 ng/mL COCM 300 ng/mL OP 300 ng/mL PCP 25 ng/mL THC 20 ng/mL PERFORMED BY: [place] [address] PATHOLOGIST DECK ENGINEER ZEB BASURTO M.D. Performed By: #### U RDS #### [place] [address] [place] Cocaine Screen,Urine Negative Normal Negative [facility] Comment on above: Performed By: #### U RDS #### [place] [address] [place] Opiate Screen,Urine Negative Normal Negative [facility] Comment on above: Performed By: #### U RDS #### [place] [address] [place] Phencyclidine Screen,Urine Negative Normal Negative [facility] Comment on above: Performed By: #### U RDS #### [place] [address] [place] ECG 12 lead ECGon 10-17-2022 ECG 12 lead ECG [facility] Main [place] [address] [place] [address] Electrocardiograph Report Signed Patient: Jenny Scott MR#: [id number] : 2000 Acct:[id number] Age/Sex: 21 / F ADM Date: 10/17/22 Loc: ER Room: Type: [facility] ER Attending Dr: Ordering Provider: Kaci Morales APRN Date of Service: 10/17/2203/03/1544 ECG/ECG 12 lead ECG: Fall Copies to: Test Reason : Blood Pressure : 108/065 mmHG Vent. Rate : 101 BPM Atrial Rate : 101 BPM P-R Int : 124 ms QRS Dur : 084 ms QT Int : 334 ms P-R-T Axes : 077 090 -42 degrees QTc Int : 433 ms Sinus tachycardia Rightward axis Confirmed by Hai DUFFY DO ([id number]) on 10/17/2022 6:46:54 PM Referred By: Electronically Signed By:Hai DUFFY DO Transcribed By: MUS Signed By Hai Duffy DO 0 10/17/22 1846 Normal [facility] Eosinophils Auto (Bld) [#/Vo l]Ordered By: Kaci Morales on 10-17-2022 Eosinophils (Bld) [#/Vol] 0.0 10*3/uL 0.0-0.45 [facility] Eosinophils/100 WBC Auto (Bl d)Ordered By: Kaci Morales on 10-17-2022 Eosinophils/100 WBC (Bld) 0.4 % . [facility] Erythrocyte distribution wid th Auto (RBC) [Ratio]Ordered By: Kaci Morales on 10-17-2022 Erythrocyte distribution width (RBC) [Ratio] 13.0 % 11.9-15.3 [facility] Estimated glomerular filtrat ion rate (GFR) non- AmericanOrdered By: Kaci Morales on 10-17-2022 GFR/1.73 sq M.predicted among non-blacks MDRD (S/P/Bld) [Vol rate/Area] > 60 mL/Min [facility] HCG ( test) IA.rapi d Ql (U)Ordered By: Kaci Morales on 10-17-2022 HCG ( test) Ql (U) Negative [facility] HCG,Urineon 10-17-2022 Beta HCG ( test) Ql (U) Negative Normal [facility] Comment on above: Order Comment: Name Collection Type:: Clean-Voided Midstream Result Comment: PERF ORMED BY: [facility] [address] [place] [address] PATHOLOGIST DECK ENGINEER ZEB BASURTO M.D. Performed By: #### A DDONUAPLUS, [facility], [facility] #### [facility] [address] Hematocrit Auto (Bld) [Volum e fraction]Ordered By: Kaci Morales on 10-17-2022 Hematocrit (Bld) [Volume fraction] 37.2 % 34.0-46.4 [facility] Hemoglobin [Mass/volume] in BloodOrdered By: Kaci Morales on 10-17-2022 Hemoglobin (Bld) [Mass/Vol] 12.4 g/dL 11.8-15.4 [facility] Ketones Auto test strip (U) [Mass/Vol]Ordered By: Kaci Morales on 10-17-2022 Ketones (U) [Mass/Vol] 1+ Negative [facility] - Drug toxicology Ordered By: Kaci Morales on 10-17-2022 Opiates Ql (U) Negative Negative [facility] Leukocytes [#/volume] correc marv for nucleated erythrocytes in Blood by Automated counOrdered By: Kaci Morales on 10-17-2022 WBC corrected for nucl RBC Auto (Bld) [#/Vol] 7.3 10*3/uL 3.8-11.6 [facility] Lymphocytes Auto (Bld) [#/Vo l]Ordered By: Kaci Morales on 10-17-2022 Lymphocytes (Bld) [#/Vol] 1.1 10*3/uL 1.00-4.8 [facility] Lymphocytes/100 WBC Auto (Bl d)Ordered By: Kaci Morales on 10-17-2022 Lymphocytes/100 WBC (Bld) 14.5 % . [facility] MCH Auto (RBC) [Entitic mass ]Ordered By: Kaci Morales on 10-17-2022 MCH (RBC) [Entitic mass] 29.4 pg 24.7-34.3 [facility] MCHC Auto (RBC) [Mass/Vol]Or dered By: Kaci Morales on 10-17-2022 MCHC (RBC) [Mass/Vol] 33.2 g/dL 32.0-35.0 [facility] MCV Auto (RBC) [Entitic vol] Ordered By: Kaci Morales on 10-17-2022 MCV (RBC) [Entitic vol] 88.6 fL 80-100 [facility] Monocyte distribution width [Entitic volume] in Blood by AutomatedOrdered By: Kaci Morales on 10-17-2022 Monocyte distribution width Auto (Bld) [Entitic vol] 14.49 % 0.00-20.00 [facility] Monocytes Auto (Bld) [#/Vol] Ordered By: Kaci Morales on 10-17-2022 Monocytes (Bld) [#/Vol] 0.4 10*3/uL 0.0-0.8 [facility] Monocytes/100 WBC Auto (Bld) Ordered By: Kaci Morales on 10-17-2022 Monocytes/100 WBC (Bld) 5.2 % . [facility] Neutrophils Auto (Bld) [#/Vo l]Ordered By: Kaci Morales on 10-17-2022 Neutrophils (Bld) [#/Vol] 5.8 10*3/uL 1.8-7.7 [facility] Neutrophils/100 WBC Auto (Bl d)Ordered By: Kaci Morales on 10-17-2022 Neutrophils/100 WBC (Bld) 79.5 % . [facility] Nitrite Test strip Ql (U)Ord ered By: Kaci Morales on 10-17-2022 Nitrite Ql (U) Negative Negative [facility] No Panel InformationOrdered By: Kaci Morales on 10-17-2022 Estimated GFR () > 60 mL/Min [facility] Comment on above: GFR estimated refere nce range: According to KDOQI guidelines, <60 ml/min/1.73m2 is sufficient to diagnose a patient with chronic kidney disease. Pharmacy Creatinine Clearance (Chem 87.98 [facility] Nucleated erythrocytes [Pres ence] in Blood by Automated countOrdered By: Kaci Morales on 10-17-2022 Nucleated RBC Auto Ql (Bld) 0.1 /100{WBC} 0-0.5 [facility] Phencyclidine Screen Ql (U)O rdered By: Kaci Morales on 10-17-2022 Phencyclidine Ql (U) Negative Negative [facility] Platelet mean volume Auto (B ld) [Entitic vol]Ordered By: Kaci Morales on 10-17-2022 Platelet mean volume (Bld) [Entitic vol] 7.9 fL 6.3-10.7 [facility] Platelets Auto (Bld) [#/Vol] Ordered By: Kaci Morales on 10-17-2022 Platelets (Bld) [#/Vol] 229 10*3/uL 150-450 [facility] Protein Auto test strip (U) [Mass/Vol]Ordered By: Kaci Morales on 10-17-2022 Protein (U) [Mass/Vol] 100 mg/dL Negative [facility] RBC Auto (Bld) [#/Vol]Ordere d By: Kaci Morales on 10-17-2022 RBC (Bld) [#/Vol] 4.19 10*6/uL 3.60-5.00 [facility] Serum or plasma anion gap de terminationOrdered By: Kaci Morales on 10-17-2022 Anion gap [Moles/Vol] 13.2 mmol/L 6.0-15.0 [facility] Serum or plasma calcium jesus urement (mass/volume)Ordered By: Kaci Morales on 10-17-2022 Calcium [Mass/Vol] 9.5 mg/dL 8.2-10.2 [facility] Serum or plasma chloride iam surement (moles/volume)Ordered By: Kaci Morales on 10-17-2022 Chloride [Moles/Vol] 103 mmol/L 95-114 [facility] Serum or plasma glucose jesus urement (mass/volume)Ordered By: Kaci Morales on 10-17-2022 Glucose [Mass/Vol] 118 mg/dL 70-100 [facility] Comment on above: ADA recommended refe rence rangeRandom Glucose Reference Range is dependent on time and content of last meal. Glucose of more than 200 mg/dL in a nonstressed, ambulatory subject supports the diagnosis of Diabetes Mellitus. Serum or plasma potassium me asurement (moles/volume)Ordered By: [facility]aci [facility] on 10-17-2022 Potassium [Moles/Vol] 3.7 mmol/L 3.5-5.1 [facility] Serum or plasma sodium measu rement (moles/volume)Ordered By: [facility] on 10-17-2022 Sodium [Moles/Vol] 138 mmol/L 136-146 [facility] Serum or plasma total carbon dioxide measurement (moles/volume)Ordered By: [facility] on 10-17-2022 CO2 [Moles/Vol] 25.5 mmol/L 22.0-30.0 [facility] Serum or plasma urea nitroge n measurement (mass/volume)Ordered By: [facility] on 10-17-2022 Urea nitrogen [Mass/Vol] 10 mg/dL 9- [facility] Specific gravity Auto test s trip (U) [Rel density]Ordered By: [facility] on 10-17-2022 Specific gravity (U) [Rel density] 1.035 1.001-1.030 [facility] Squamous epithelial cells de tection in urine sediment by light microscopyOrdered By: [facility] on 10-17-2022 Epithelial cells.squamous LM Ql (Urine sed) 5-9 [HPF] 0-2 [facility] Troponin I High Sensitivityo n 10-17-2022 Troponin I High Sensitivity < 3 Normal 0-15 [facility] Comment on above: Result Comment: PERF ORMED BY: [place] [address] PATHOLOGIST DECK ENGINEER ZEB BASURTO M.D. Performed By: #### H S TROP, BMP, CBC #### [address] Troponin I.cardiac [Mass/vol ume] in Serum or Plasma by High sensitivity methodOrdered By: [facility]aci [facility] on 10-17-2022 Troponin I.cardiac High sensitivity method [Mass/Vol] < 3 pg/mL 0-15 [facility] Urine Cultureon 10-17-2022 Bacteria identified Cx Nom (U) 75,000 colonies/ml mixed bacterial skin contaminants 2 Days PERFORMED BY: [place] [address] PATHOLOGIST DECK ENGINEER ZEB BASURTO M.D. [facility] Comment on above: Performed By: #### A DDONUAPLUS, UHCG, CUU #### [address] Urine bacteria detection by automated methodOrdered By: Kaci Morales on 10-17-2022 Bacteria Auto Ql (U) 1+ None Seen [facility] Urine clarity by refractomet ry automatedOrdered By: Kaci Morales on 10-17-2022 Clarity Refractometry automated (U) Cloudy Clear [facility] Urine cocaine detectionOrder ed By: Kaci Morales on 10-17-2022 Cocaine Ql (U) Negative Negative [facility] Urine glucose measurement by automated test strip (mass/volume)Ordered By: Kaci Morales on 10-17-2022 Glucose Auto test strip (U) [Mass/Vol] Normal mg/dL Normal [facility] Urine hemoglobin detection b y automated test stripOrdered By: Kaci Morales on 10-17-2022 Hemoglobin Auto test strip Ql (U) 3+ Negative [facility] Urine leukocyte esterase det ection by automated test stripOrdered By: Kaci Morales on 10-17-2022 Leukocyte esterase Auto test strip Ql (U) 2+ Negative [facility] Urine sediment crystal ident ification by light microscopyOrdered By: Kaci Morales on 10-17-2022 Crystals LM Nom (Urine sed) None seen [HPF] [facility] Urobilinogen Auto test strip (U) [Mass/Vol]Ordered By: Kaci Morales on 10-17-2022 Urobilinogen (U) [Mass/Vol] Normal mg/dL Normal [facility] WBC Auto (Bld) [#/Vol]Ordere d By: Kaci Morales on 10-17-2022 WBC (Bld) [#/Vol] 7.3 10*3/uL 3.8-11.6 [facility] XR chest 1V portableon 10-17 XR chest 1V portable [facility] Main [place] [address] [place] [address] XRay Report Signed Patient: Jenny Scott MR#: [id number] : 2000 Acct:[id number] Age/Sex: 21 / F ADM Date: 10/17/22 Loc: ER Room: Type: PRE ER Attending Dr: Copies to: Kaci Morales APRN Ordering Provider: Kaci Morales APRN Date of Service: 10/17/22 XR/XR chest 1V portable: Fall PORTABLE AP ERECT CHEST 1623 hours CLINICAL HISTORY: Syncopal episode and fall COMPARISON: 10/14/2020 The heart is within normal limits. There is no vascular congestion. The lungs, as visualized, are clear. There is no effusion or pneumothorax. The osseous structures are intact. Dextroscoliotic curvature is noted. XR/XR chest 1V portable IMPRESSION: NO ACUTE FINDINGS Impression dictated by: Maricruz Vick M.D.10/17/2022 4:47 PM Dictation Location: [place] [address] Transcribed By: [facility] 10/17/221646 Dictated By: Maricruz Vick MD 10/17/221644 Signed By: 10/17/221646 [facility] pH Auto test strip (U)Ordere d By: Kaci Morales on 10-17-2022 pH (U) 5.0 [pH] 5.0-9.0 [facility] Provider Letter FTon 05-31 Provider Letter [facility] May 31, 2022 JENNY SCOTT [address] [place] [phone] JENNY SCOTT 2000 To Whom It May Concern, Please excuse above patient from work 05/28/2022. Dr. Sal Downs MD General Surgery [facility] Provider Letteron 05-17-2022 Provider Letter May 17, 2022 JENNY SCOTT [facility] [address] [phone] JENNY SCOTT 2000 Dear Jenny, We have been trying to reach you with no success. It is important that you return our call regarding your referral from Dr. Ham upon receiving this letter. Also, at the time of your call, please provide us with your current information. Thank you for your prompt attention to this matter. Sincerely, General Surgery [phone] Normal [facility] Physician Referralon 022 Physician Referral [phone] [id number] [facility] 2018 Novel Coronavirus (CoVI D-19), EMELYN LCon 02-10-2022 SARS-CoV-2 (COVID-19) RNA EMELYN+probe Ql (Unsp spec) Not detected Invalid Interpretation Code Not Detected [facility] Comment on above: Order Comment: [id number] 1 # [phone] Result Comment: This nucleic acid amplification test was developed and its performance characteristics determined by [employer] [facility]. Nucleic acid amplification tests include RT- PCR and TMA. This test has not been FDA cleared or approved. This test has been authorized by FDA under an Emergency Use Authorization (EUA). This test is only authorized for the duration of time the declaration that circumstances exist justifying the authorization of the emergency use of in vitro diagnostic tests for detection of SARS-CoV-2 virus and/or diagnosis of COVID-19 infection under section 564(b)(1) of the Act, 21 U.S.C. 360bbb-3(b) (1), unless the authorization is terminated or revoked sooner. When diagnostic testing is negative, the possibility of a false negative result should be considered in the context of a patient's recent exposures and the presence of clinical signs and symptoms consistent with COVID-19. An individual without symptoms of COVID-19 and who is not shedding SARS-CoV-2 virus would expect to have a negative (not detected) result in this assay. Performed At: [address] [id number] Sanjuanita Hernández PhD Ph:[phone] Performed By: #### 6 [id number] #### [facility] (DEFAULT) [address] [place] [address] Coding Summaryon 02-10-2022 Coding Summary HTMLBase 64 GyvdvylkLRm2qGy+PGh lYWQ+GH0OVVJzV49trM EqlL2DQ9dOMJ3THNUAQ ZDNUN5ODW7qkHQ0NZnu C6ZjwzPq JoggwNLxGL67DYz7GWC 0fAnsZKvggU6tzYMgV5 e8IgHxND97lN79CYjvV LYgFgV4SsUomfmfcPSj F1jfWwAytVCoAsl+PHR hYmxlIHdpZHRoPScxMD CgKyFqwAfhSW9zUm5dQ GVyLWNvbGxhcHNlOiBj b2leLVXkDCngRU2yvOp xM9EhaXF8PEPvn5v7Gl 48dHI+SHCnUDZ9sBxgQ Jjrf798BjFzy9seTOJ5 kIXxKFecVRP9J63tu1E 1RLJdDGXmLDL6tPH6gY 6voIwpwuunX5UmgBRcR tO0CGD9fRVewM4ugJhr uyrerZ6vXok+Q12EEA8 EHTYOOU2EExf5V6MpCw wvdHI+LK42JYQnIQ05m NVauEDou6gjlTl3GjLi VUVnROH3aGgpQRfej2M sQFDfN27bwBGpt4X2WJ YwiXoyhAWiPsDpzGH7y Q8sGIhiuyyfj6sinlpf Ellmk6ryms25kB78G42 gPXfpTOUbIIT4CNIyGI FpsNvsjs1qnI1eAs5+I Fhkz2fwa8iwbDj9PkEc VVRzhuHpoCieSNI7z8O jZm13M9NauSneb8YgNo l8zz24jBXuh0H6jBM4Y LvpVDOttG2aFJruZeU5 FBUwRnHvkS71yZQrJLr uWr2flShewTaoTR4hOV XxafawWWDhfB1wRWDxt VObvZmlUF9aLWYyekyl m336YiJoDQO1WKOkxYW pB0DjeL5kSuJvESVkRL BrZ4RrgVIvUAgsN787C JpzUnI9PKOcuiCgH5Ap QKRyoVjdQwT7p2P9Sc4 Cv4HrfipwLHG2GXupNQ Q8RqGaOvSwLzO6M4QfO lq5ZZShvSsiQN5kS5Xi FAKkqkqkalxapIO7XXY rYAWebF84tDFbKXdcYe 1sq8W4x081POGnHKUgo S09Qw9rnUwkCAHogBML uW0nrujru6jlssomMoL rPITsVQj4ZEp2SNVbaA avMrXnFSW7ZcG7FOB5c GWvyK8lvGrzixcvzM2d Oyc+R74fzW0oONO6VED 4fzedJCCjgiVeMT99SQ 69M1UnWnmggPXpkCI+P GFwzqFeyPosBJ8zZrSt t9fdc2ByAKktX8YzYUY cWQkkRxx3FYVpUKT7hQ W2tH4vOKDmMVtuu9A0g VT5A7EcnjUhbx0vf2li WBSkGMktS52vgJOam4A 1GXXmwEN7WCIiwLtrKn FbjY57Xjt+PGNvbGdyb 0HxXbpbp9jtq6ivhLw5 IjMwJSIgdmFsaWduPSJ 9w8WtEh12N63tHRfmLI RoPSIxNSUiIHZhbGlnb g4trI8aEr7+PGNvbCB3 sJV6tP4sUMVqQgU7ILs mR029KvGgqAElAuhwe2 dnq7dhwAr6NfQxDGEcn vEerVmxPYL8q2PoBl11 V32gLJnzHXXmNYPtGOU wWNEtpMaseq9oeA5rIs 8+CX9ie2pbgt78dS37n HI+JVZsJQO4nIijGGya AEAuiZ3cAJuaWkY0REV nHmQmvE14uLYaFDyqBi 5trYaukZdnAQ3nQIHfw amec731IdJxc5xsWTUz sNQsGPdqRBB3F74tk0W 7KGUpHESqPQK3cJX3vK 1hbGlnbjogbGVmdDsgd bSpkZqpGMwoECdnH073 IHRvcDsnPlBhdGllbnQ gYsJtQJy6Y2LoAaa1TJ SjbMdbWH2weNIeEFfbZ r0woPzhvOixPZ4bDXKc vgdqs876KeVce2rnYNC gcBDrPBgsTTO7S59fv8 M1EDRtFUJjFCK2aWN0h Q8xsMqxqdrxuLRclDmx qkHjmCraFGofVQflP76 6IHRvcDsnPkJpcnRoIE MjwCD1BD81MU53oRIiv 9Y8hUC7D4RwEDOglofe fvjgvTG2CAOtCFOjbH0 1Yc7toOuoYl4hWXNtXM A4DQUmhYGfQ4FrdV0zN rPlJPEkERTnI7UusVIe OPrhU940UBztFrV4GGL dbfUiY0AgGZBjiVoaRv U7c1S6Qc7ZO1J6WG89Z U38dFQac4R9xLJ6O3Vy SYGbvphrljvkzXQ9SWA wUXHngL20Fd3qoXbyRw 1yGNEwUAA1ZFPbmXVsI 3PguU1lClUnIRViTHAo M4TwgRSpMCwvM713PPz uCoP4WSNzejGhK9IxAY UttVhzSmT3e4I1Xa5AU Zt9ED64NP35mOKwi5T8 iVC6Y9XbOWDbqwklmui qfYT7DDWhIAHheA35To 9kxTxdIo6tOBFiRXG8X UOtlIMfI0HccD1sGiGe OAQqQHHhA7LtgMQxOQl bH110VGkcIgY9WCKllo CgX7OiULGeeRekZcK9p 8T5Re6TFDOpPU25ZQF6 yQM0DV77IC95C5QvWqb vdGFibGU+PHRhYmxlIH dpZHRoPScxMDAlJyBzd IcmDM5qCn1ySELxXYXg wOvxzULzQeIlx2iuCOS qYJguAZ0kyMukB9JuuU I3FPUsi0a3Uy93D74xK 3JvdXA+XBQszNF4sPG8 nH5uKwLhNxA0SBfkV40 4WgShgQMeNersj1lzj3 baaPj5QsX8TDFzabBpi XglBIN7w0MbFc86C55w IHdpZHRoPSIxNSUiIHZ akSaytu3cdO6pLi6+PG TqfNB7cYJ9aE0kKxZnS kN1TMrqV596QwEwyJSb Kzysa9mvr1qzwZi0JaF dRUMbvqBmeObeQKQ0m1 PvCh59V6FoeOeag9UzD kj7re21uEOhl3K2gLG6 X9QoIWNrfkdliSIruZx wOS5qVZPjqwwtQTNfdM 7mXNRvU2c7GsGwLzZ8I ZhsQ7UscgQ4ATAjdDCq OVlsOCA8F72zo3B0CHA uQQVpVPH1aHR1wJ8zbL lnbjogbGVmdDsgdmVyd ZviUXlnVEeeL195LTYu sZylPGWbjD5gRDAinJM bsBrdPM0xJMNmfgvmKh sMZItTQowqRBsFK6OHR FNVRTwvdGQ+PHRkIHN0 dAgcRAyaNWEljM3mKDF cM4o5AcHxOwS4AUxyS6 YzNBKixvewKp95gT8tW fYoCfJ2MJjkJ9WiyrA2 NBNpiPZhYNyuHTJ0H50 bi6H9VDEwKPAxYED9zD J4lW6guJjwkaftrJYqt DsgdmVydGljYWwtYWxp O002QKDwvPsuJqXaIcX 0BeTeTIC9H0JpMkh9WH EadItzWO6ksMBbTQypM e1tzKsfcPadJU4gUYDl ntarTSMmzB2tUMKsdEY xdFtdVR7wIQRbydowg3 59RcChKWG0SONdsNCdM 3EmpE1wIfKwCKFxSIYq G9OijPCqWCvfF943HQm pVjU5BFHoldJpU0AeWJ WfvJzlHsY8t5D8Ff4oK SBZZWFyczwvdGQ+PHRk QWO3eWdzFGxaWEApbH6 hLBOlI4y0BjMtWbQ3MW lhU4ThJCIudowcGy89q W6wMjBlVlZ8JUpiN6Sd fiP0AGUqsOFxOJivTZV 3Z51ed8M2HWXjXFCuHE N9jNM0aA0kaRxsiflpq GVmdDsgdmVydGljYWwt CQusW059ZPVwjJqtWrV FTUFMRTwvdGQ+PHRkIH V2vWgcNEdbJGBmrW7eP VXbH4v9XnUhYwJ0CWie X0UvJZMpaflnVa27nA2 vWvNyMxD8LJkfA2Zxkc C0HGYsnAIzMElqOLS8Z 64ah5D4XIDiVNVwISP4 oFU7jU8mkRtdgexiuOS mdDsgdmVydGljYWwtYW kxF716BOHedIptKe1LL C22FN74I3ZoJipmkWZk bGU+PHRhYmxlIHdpZHR oPScxMDAlJyBzdHlsZT 9xJx6zSIRyJVLyuXoxq WZhGzXzl9plVFJoJXtf WV4ppShmD5AslEK8RFW ay7d5Ud63W31yG0LpwA A+IBBebMH9xQR6cO5bC dCzQzQ6DLorC987WiIj eUFfEljte2nul5ejvSh 9IjMwJSIgdmFsaWduPS I1x6FbFv55E46cULqgP HRoPSIyMCUiIHZhbGln tw4mdG3aJb4+PGNvbCB 2kOU2zY0wQkFvDdX8ZI dbB507OkMjjSJoJuqdQ 00jT7NqnVP+PHRyPjx0 BILsnIiwOS3bdDWiWWo sPs3tAHA9JhTxHwHzFK krN2TcOJDebwuxjylqn EJ3TUFlXUAiuY47Ga7j rTbhZy6sFECiYAX5TKR hiDNeQ0EwdQ4dBrDtLF YoEPVyA5SciFNtFYlhB 370ECvkHrV4IMDlbhAs T3PyGSEfaNwnAnX1b7N 7Pn9HjJqzdBRoMM4yJk GcHHl7B5EsGhs8ZHXga QfkOU8fvBAiTIrtBu3c lMicmDaoFO9tIDUoozb bd439UlQdw0yyCUIqrF LbHHrhBDY3I82ve7I1B ZOoIKJyUDR9mIA5zR4n bGlnbjogbGVmdDsgdmV naEocJJdoDTzgI892DD EpbYspOkXJHks0J0NnM lz7WTLdbDsrZX9deDPf POpfZm6baOwdfWfbTA8 xJRPwqyrda531NoRiz9 xkJWPzkBYxHOgvPVH8U 01dq4Y9YXFoTOZyLBK3 yGD4uY7cgJuthdwzoQI mdDsgdmVydGljYWwtYW atX310EYNmnGfzCr7OF so6I9MqBrz1MWGdzOha OH3hdFWuZPprXv7tkWp mrSepCV7kNDCitiswc8 80InJtl0qyCLMwhRJiV OchBGO9W91kh3Z3ZEHl QLNvFED0qDX3yQ7ukUt nbjogbGVmdDsgdmVydG leBVekMUmpM942FHInp DsnPlBheWVyOjwvdGQ+ TG26kc75D6KpQwddVgj 5NJIaNHS5mEA6rV2wOV RpXEslx1M2sQB2E2Esh bVxuz4gg5ecSYFlBAwd Y29 (more content not included)... Normal [facility] ED Clinical Summaryon [address] [facility] ? Urgent Care [address] [place] [address] Clinical Summary PERSON INFORMATION Name: JENNY SCOTT Age: 21 Years Sex: FEMALE : 2000 MRN: Acct#: Visit Reason: UC - Headache; HEADACHE, NAUSEA Arrival: 02/07/2022 17:42:14 Discharge: 02/07/2022 19:03:00 LOS: 000 01:21 Check In: 02/07/2022 17:42:14 Checkout: 02/07/2022 19:03:00 Address: [address] [place] [id number] PCP: Toña Pierre MD PROVIDER INFORMATION Provider Role Assigned Unassigned Cedric Hemphill ED PA 02/07/2022 17:46:36 Salena Ochoa [employer] Nurse 02/07/2022 17:46:51 VITALS INFORMATION Vital Sign Triage Latest Temperature Tympanic Temperature Temporal Artery Pulse Rate O2 Sat 95 % 95 % Respiratory Rate Blood Pressure /75 mmHg /75 mmHg MEDICAL INFORMATION Medications Given: Medication Dose Route ondansetron (Zofran) 4 mg PO acetaminophen (Tylenol) 1000 mg PO Allergy Information: No Known Medication Allergies PHYSICIAN DOCUMENTATION DISCHARGE INFORMATION: Discharge Disposition: Home Discharge Location: Home PATIENT EDUCATION INFORMATION Instructions: COVID-19: What to Do If You Are Sick- CDC (11/25/2020); Viral Respiratory Infection Follow-Up: With: Address: When: Toña Pierre [address] [place] [address], [place] [address] Business (1) Within 2 to 4 days Comments: You have been diagnosed with Viral Upper respiratory tract infection with cough, congestion, sore throat. You have mild dehydration causing headache as well that responded to fluids and tylenol. Send Out Covid test performed. QUARANTINE until results. Influenza A/B negative. Excuse from work - 02/07, 02/08, 02/09/2022. Return to work 02/10/2022. *Begin Tylenol 500mg 1-2 every 6 hours as needed for headache, aches, chills. Do not exceed 3000mg or 6 doses in 24 hours. First dose was given to you tonight in the urgent care. Next dose after 11pm. *Begin Ibuprofen 600mg every 8 hours. * Begin Zofran 4mg 1 every 8 hours x 3 days. * PUSH FLUIDS- 60 ounces. STAY HOME. There is a high concern for COVID infection, but there is no indication for hospitalization at this time. Testing was initiated per current recommendations and guidelines from the [facility]. -Push fluids to stay hydrated. -Use Tylenol as needed for fevers or suspected fevers. Dehydration can happen more quickly with a fever, be certain to have Tylenol on hand to use as needed. Do not exceed 3000mg of Tylenol (acetaminophen). There is some indication that Tylenol may be better than Ibuprofen for treating fevers and body aches in a COVID-19 so begin with Tylenol. -Seek medical care with increasing shortness of breath. Make sure you notify the provider or hospital that you are coming and that you possibly have a COVID infection prior to your arrival. -Please stay at home, except to get medical care. Under no circumstance should this patient go to work, school, or public areas. -Separate yourselves from other people and animals in your home. Try to stay in a different room away from others in your home and use a separate bathroom if possible. Restrict contact with pets while you are sick. -Call ahead before visiting your doctor or returning to the hospital. Notify them that you may have COVID-19. This will help keep you protected with a mask as soon as you enter the facility and help the health care providers stay protected. -Wear a face mask when you are around other people. -Cover your coughs and sneezes. -Clean your hands often. -Clean all high-touch surfaces every day, including counters, tabletops, doorknobs, bathroom fixtures, toilets, phones, keyboards, tablets, and bedside tables. -Avoid sharing household items, this includes dishes, drinking glasses, cups, eating utensils, towels and bedding with others in your home. -Monitor your symptoms. Seek prompt medical attention if your illness is worsening (ie. Difficulty breathing). Wear a facemask to the ER, and notify EMS or ER staff that you are seeking additional care and that you possibly have COVID-19. -Inform your household contacts that they also should stay home for 14 days, even if they do not feel ill. Find someone else to drop your groceries off and pickling machine operator your medications. I would recommend that person only leave things on your doorstep and do not enter your home during this time. *IF Covid is NEGATIVE... Discontinue home isolation only after it?s been more than 72 hours since you first became ill AND you have been fever free for 72 hours AND your cough/shortness of breath has subsided. * IF Covid is POSITIVE... Quarantine for 5 days from the start of your symptoms . The Health Department will be contacting you. Leave home only to seek medical care. 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 ED Patient Summaryon [address] [facility] ? Urgent Care [address] [place] [address] PATIENT DISCHARGE INSTRUCTIONS Patient Information Name: JENNY SCOTT Age: 21 Years Date of : 2000 Reason For Visit: UC - Headache; HEADACHE, NAUSEA Arrival Time: 02/07/2022 17:42:14 Primary Care Physician: Toña Pierre MD Attending Physician: Cedric Hemphill Comment: Patient Education With: Address: When: Toña Pierre [address] [place] [address], [place] [address] Business (1) Within 2 to 4 days Comments: You have been diagnosed with Viral Upper respiratory tract infection with cough, congestion, sore throat. You have mild dehydration causing headache as well that responded to fluids and tylenol. Send Out Covid test performed. QUARANTINE until results. Influenza A/B negative. Excuse from work - 02/07, 02/08, 02/09/2022. Return to work 02/10/2022. *Begin Tylenol 500mg 1-2 every 6 hours as needed for headache, aches, chills. Do not exceed 3000mg or 6 doses in 24 hours. First dose was given to you tonight in the urgent care. Next dose after 11pm. *Begin Ibuprofen 600mg every 8 hours. * Begin Zofran 4mg 1 every 8 hours x 3 days. * PUSH FLUIDS- 60 ounces. STAY HOME. There is a high concern for COVID infection, but there is no indication for hospitalization at this time. Testing was initiated per current recommendations and guidelines from the [facility]. -Push fluids to stay hydrated. -Use Tylenol as needed for fevers or suspected fevers. Dehydration can happen more quickly with a fever, be certain to have Tylenol on hand to use as needed. Do not exceed 3000mg of Tylenol (acetaminophen). There is some indication that Tylenol may be better than Ibuprofen for treating fevers and body aches in a COVID-19 so begin with Tylenol. -Seek medical care with increasing shortness of breath. Make sure you notify the provider or hospital that you are coming and that you possibly have a COVID infection prior to your arrival. -Please stay at home, except to get medical care. Under no circumstance should this patient go to work, school, or public areas. -Separate yourselves from other people and animals in your home. Try to stay in a different room away from others in your home and use a separate bathroom if possible. Restrict contact with pets while you are sick. -Call ahead before visiting your doctor or returning to the hospital. Notify them that you may have COVID-19. This will help keep you protected with a mask as soon as you enter the facility and help the health care providers stay protected. -Wear a face mask when you are around other people. -Cover your coughs and sneezes. -Clean your hands often. -Clean all high-touch surfaces every day, including counters, tabletops, doorknobs, bathroom fixtures, toilets, phones, keyboards, tablets, and bedside tables. -Avoid sharing household items, this includes dishes, drinking glasses, cups, eating utensils, towels and bedding with others in your home. -Monitor your symptoms. Seek prompt medical attention if your illness is worsening (ie. Difficulty breathing). Wear a facemask to the ER, and notify EMS or ER staff that you are seeking additional care and that you possibly have COVID-19. -Inform your household contacts that they also should stay home for 14 days, even if they do not feel ill. Find someone else to drop your groceries off and pickling machine operator your medications. I would recommend that person only leave things on your doorstep and do not enter your home during this time. *IF Covid is NEGATIVE... Discontinue home isolation only after it?s been more than 72 hours since you first became ill AND you have been fever free for 72 hours AND your cough/shortness of breath has subsided. * IF Covid is POSITIVE... Quarantine for 5 days from the start of your symptoms . The Health Department will be contacting you. Leave home only to seek medical care. COVID-19: What to Do if You Are Sick If you have a fever, cough or other symptoms, you might have COVID-19. Most people have mild illness and are able to recover at home. If you are sick: ? Keep track of your symptoms. ? If you have an emergency warning sign (including trouble breathing), call 911. Steps to help prevent the spread of COVID-19 if you are sick If you are sick with COVID-19 or think you might have COVID-19, follow the steps below to care for yourself and to help protect other people in your home and community. Stay home except to get medical care ? Stay home. Most people with COVID-19 have mild illness and can recover at home without medical care. Do not leave your home, except to get medical care. Do not visit public areas. ? Take care of yourself. Get rest and stay hydrated. Take zezu-mkn-xkuswbh medicines, such as acetaminophen, to help you feel better. ? Stay in touch with your doctor. Call before you get medical care. Be sure to get care if (more content not included)... Normal [facility] Influenza A&B Rapidon 2021 Influenza A Negative Normal Negative [facility] Comment on above: Performed By: #### 1 [id number] #### [facility] (DEFAULT) [address] [place] [place] [address] Influenza B Negative Normal Negative [facility] Comment on above: Performed By: #### 1 [id number] #### [facility] (DEFAULT) [address] [place] [address] Internal QC OK? Pass Normal [facility] Comment on above: Performed By: #### 1 [id number] #### [facility] (DEFAULT) [address] [place] [address] Progress Note - Nurseon 01-11 Progress Note - Nurse Patient provided with fluids [Electronically Signed on: 02/07/2022 18:30 EDT] __ Salena Ochoa RN [Verified on: 02/07/2022 18:30 EDT] __ Salena Ochoa RN Normal [facility] UA w Culture if Ind Standard on 02-07-2022 Breakpoint UA [facility] Comment on above: Performed By: #### 1 [id number] #### [facility] (DEFAULT) [address] [place] [address] Color (U) Yellow Normal [facility] Comment on above: Performed By: #### 1 [id number] #### [facility] (DEFAULT) [address] [place] [address] Culture? Not Indicated Invalid Interpretation Code [facility] Comment on above: Result Comment: Resu lt created by rule GL_MAGR_ADD_UA_CULT1 Performed By: #### 1 [id number] #### [facility] (DEFAULT) [address] [place] [address] Glucose (U) [Mass/Vol] Negative Normal [facility] Comment on above: Performed By: #### 1 [id number] #### [facility] (DEFAULT) [address] [place] [address] Ketones Ql (U) [address] [facility] Comment on above: Performed By: #### 1 [id number] #### [facility] (DEFAULT) [address] [place] [address] Micro? Not Indicated Invalid Interpretation Code [facility] Comment on above: Result Comment: Resu lt created by rule GL_MAGR_ADD_UA_MICRO Performed By: #### 1 [id number] #### [facility] (DEFAULT) [address] [place] [address] Ab[address] [facility] Comment on above: Performed By: #### 1 [id number] #### [facility] (DEFAULT) [address] [place] [address] UA Blood Negative Normal NEGATIVE [facility] Comment on above: Performed By: #### 1 [id number] #### [facility] (DEFAULT) [address] [place] [address] UA Clarity CLEAR Normal CLEAR [facility] Comment on above: Performed By: #### 1 [id number] #### [facility] (DEFAULT) [address] [place] [address] UA Leuk Est Negative Normal NEGATIVE [facility] Comment on above: Performed By: #### 1 [id number] #### [facility] (DEFAULT) [address] [place] [address] UA Nitrite Negative Normal NEGATIVE [facility] Comment on above: Performed By: #### 1 [id number] #### [facility] (DEFAULT) [address] [place] [address]254 UA pH 6.5 Normal 5-8 [facility] Comment on above: Performed By: #### 1 [id number] #### [facility] (DEFAULT) [address] [place] [address] UA Protein Negative Normal NEGATIVE [facility] Comment on above: Performed By: #### 1 [id number] #### [facility] (DEFAULT) [address] [place] [address] UA Spec Grav >=1.030 Normal 1.001-1.035 [facility] Comment on above: Performed By: #### 1 [id number] #### [facility] (DEFAULT) [address] [place] [address] UA Urobilinogen 1.0 mg/dL Normal 0.2-1.0 [facility] Comment on above: Performed By: #### 1 [id number] #### [facility] (DEFAULT) [address] [place] [address] Urine Source Clean Catch Normal [facility] Comment on above: Performed By: #### 1 [id number] #### [facility] (DEFAULT) [address] [place] [address] Urgent Care Note- Provideron 02-07-2022 Urgent Care Note- Provider Patient: JENNY SCOTT Age: 21 years Sex: FEMALE : 2000 Associated Diagnoses: Viral URI with cough; Aching headache Author: Cedric Hemphill Basic Information Time seen: Date & time 02/07/2022 17:46:00. History source: Patient. Arrival mode: Walking. History limitation: None. CC: Pt is requesting a return to work excuse for today, called off. 7 days of frontal headache 5/10, clear runny nose, decreased energy, fatigue, sore throat. 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 Only drank 1 glass of water today. Ate McDouble and Thai fries at 5:30pm. + influenza exposure 4 days ago. ALL: None Meds: Midodrine 5mg TID. PMH: Neurocardiogenic syncope, leaky valve of heart Social: Called off work today from [employer]. Worked 02/04, 02/05, 02/06. Marijuana daily. Review of Systems Constitutional symptoms: Decreased activity, no fever, no chills, no fatigue. ENMT symptoms: Sore throat, nasal congestion, No ear pain, Respiratory symptoms: Cough, no shortness of breath, no wheezing. Gastrointestinal symptoms: Nausea, no abdominal pain, no vomiting, no diarrhea. Musculoskeletal symptoms: Muscle pain, No back pain, Neurologic symptoms: Headache, no dizziness, no numbness, no tingling. Psychiatric symptoms: Anxiety, depression. Allergy/immunologic symptoms: No seasonal allergies, no recurrent infections, no impaired immunity. Health Status Allergies: Allergic Reactions (Selected) No Known Medication Allergies. Past Medical/ Family/ Social History Medical history: No active or resolved past medical history items have been selected or recorded.. Surgical history: No active procedure history items have been selected or recorded.. Family history: No family history items have been selected or recorded.. Social history: Social & Psychosocial Habits Alcohol 02/07/2022 Alcohol Use: Current Frequency: 1-2 times per year Substance Abuse 02/07/2022 Substance use: Current Type: Marijuana Frequency: Daily Tobacco 02/07/2022 Smoking tobacco use: Never tobacco user Electronic Cigarette/Vaping 02/07/2022 Electronic Cigarette Use: Use, within last 90 days Type: Nicotine infused Use per Day: 1 cartridge per week . Problem list: Active Problems (4) Anxiety Iron deficiency anemia Low blood pressure Panic attacks . Physical Examination Vital Signs Vital Signs 02/07/2022 17:50 EDT Temperature Oral 37.1 DegC Peripheral Pulse Rate 98 bpm Respiratory Rate 16 br/min Systolic Blood Pressure 115 mmHg Diastolic Blood Pressure 75 mmHg SpO2 95 % Oxygen Therapy Room air . HR of 98-100. . General: Alert, no acute distress, Not ill-appearing, Skin: Warm, dry, no rash, normal turgor. Head: Normocephalic, atraumatic. Neck: Supple, trachea midline, full range of motion. Eye: Pupils are equal, round and reactive to light, extraocular movements are intact. Ears, nose, mouth and throat: Tympanic membranes clear, Mouth: moist, Throat: Normal. Cardiovascular: Regular rate and rhythm, No murmur. Respiratory: Lungs are clear to auscultation, respirations are non-labored, breath sounds are equal. Gastrointestinal: Soft, Nontender. Musculoskeletal: Normal ROM, normal strength. Neurological: Alert and oriented to person, place, time, and situation, No focal neurological deficit observed, CN II-XII intact. Psychiatric: Cooperative, appropriate mood & affect. Medical Decision Making Rationale: 21 y/o patient who reports 7 days of decreased energy, cough congestion runny nose frontal headache, malaise. She comes urgent care with a 5 out of 10 frontal headache, dark urine, nausea. She had a democrat last night and did drink alcohol. She is no longer feeling intoxicated. However urinalysis is dark yellow concentrated. Heart rate is high side normal at 98-100. She has not take anything for headache today and she was given Tylenol 1000 mg and Zofran. Discharge diagnosis of viral upper respiratory tract infection with cough. Cannot exclude COVID-19. Influenza AB-. Patient also has mild dehydration from alcohol, lack of oral intake. She tolerated 20 ounces of fluid while here at the urgent care. Her vitals remained stable, afebrile. Urinalysis shows no infection. Discharged home in stable and improved condition. 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 May return to work on February 10. Off work while awaiting send out COVID-19 test results. Orders Launch Orders Laboratory: 2019 Novel Coronavirus (CoVID-19), [facility] (SEND OUT) (Order): Nasopharyngeal Swab, 02/07/2022 18:01 EDT, Stat collect, Nurse collect, No, Yes, 01/30/2022, No, No, Yes, Not Urinalysis with Culture, if indicated Standard (Order): Urine, Stat collect, 02/07/2022 18:01 EDT, Nurse collect Rapid Flu A&B (Order): Nasopharyngeal Swab, 02/07/2022 18:01 EDT, Routine collect, Nurse collect Patient Care: Encourage Fluids (Order): 02/07/2022 18:01 E (more content not included)... Normal [facility] [address] [facility] ? Urgent Care [address] [place] [address] PATIENT DISCHARGE INSTRUCTIONS Patient Information Name: JENNY SCOTT Age: 21 Years Date of : 2000 Reason For Visit: UC - Headache; HEADACHE, NAUSEA Arrival Time: 02/07/2022 17:42:14 Primary Care Physician: Toña Pierre MD Attending Physician: Cedric Hemphill Comment: Visit Diagnosis: Diagnoses This Visit Aching headache (R51.9) Mild dehydration (E86.0) Tachycardia (R00.0) UC - Headache ([id number]) Viral URI with cough (J06.9) If you received any narcotics, sedation, or any other medication that causes drowsiness for the next 24 hours, unless otherwise directed: ? Do not drive a car. ? Do not operate machinery such as power tools, lawn mowers, drills, sewing machines, or stoves ? Avoid alcoholic beverages and drugs for allergies, nerves, or sleep ? Do not make important personal or business decisions or sign any legal documents With: Address: When: Toña Ignacio [address] [place] [address], [address] [place] [id number] Business (1) Within 2 to 4 days Comments: You have been diagnosed with Viral Upper respiratory tract infection with cough, congestion, sore throat. You have mild dehydration causing headache as well that responded to fluids and tylenol. Send Out Covid test performed. QUARANTINE until results. Influenza A/B negative. Excuse from work - 02/07, 02/08, 02/09/2022. Return to work 02/10/2022. *Begin Tylenol 500mg 1-2 every 6 hours as needed for headache, aches, chills. Do not exceed 3000mg or 6 doses in 24 hours. First dose was given to you tonight in the urgent care. Next dose after 11pm. *Begin Ibuprofen 600mg every 8 hours. * Begin Zofran 4mg 1 every 8 hours x 3 days. * PUSH FLUIDS- 60 ounces. STAY HOME. There is a high concern for COVID infection, but there is no indication for hospitalization at this time. Testing was initiated per current recommendations and guidelines from the [facility]. -Push fluids to stay hydrated. -Use Tylenol as needed for fevers or suspected fevers. Dehydration can happen more quickly with a fever, be certain to have Tylenol on hand to use as needed. Do not exceed 3000mg of Tylenol (acetaminophen). There is some indication that Tylenol may be better than Ibuprofen for treating fevers and body aches in a COVID-19 so begin with Tylenol. -Seek medical care with increasing shortness of breath. Make sure you notify the provider or hospital that you are coming and that you possibly have a COVID infection prior to your arrival. -Please stay at home, except to get medical care. Under no circumstance should this patient go to work, school, or public areas. -Separate yourselves from other people and animals in your home. Try to stay in a different room away from others in your home and use a separate bathroom if possible. Restrict contact with pets while you are sick. -Call ahead before visiting your doctor or returning to the hospital. Notify them that you may have COVID-19. This will help keep you protected with a mask as soon as you enter the facility and help the health care providers stay protected. -Wear a face mask when you are around other people. -Cover your coughs and sneezes. -Clean your hands often. -Clean all high-touch surfaces every day, including counters, tabletops, doorknobs, bathroom fixtures, toilets, phones, keyboards, tablets, and bedside tables. -Avoid sharing household items, this includes dishes, drinking glasses, cups, eating utensils, towels and bedding with others in your home. -Monitor your symptoms. Seek prompt medical attention if your illness is worsening (ie. Difficulty breathing). Wear a facemask to the ER, and notify EMS or ER staff that you are seeking additional care and that you possibly have COVID-19. -Inform your household contacts that they also should stay home for 14 days, even if they do not feel ill. Find someone else to drop your groceries off and pickling machine operator your medications. I would recommend that person only leave things on your doorstep and do not enter your home during this time. *IF Covid is NEGATIVE... Discontinue home isolation only after it?s been more than 72 hours since you first became ill AND you have been fever free for 72 hours AND your cough/shortness of breath has subsided. * IF Covid is POSITIVE... Quarantine for 5 days from the start of your symptoms . The Health Department will be contacting you. Leave home only to seek medical care. Medication Information: The exam and treatment you received today in the [facility] were for an urgent problem and are not intended as complete care. It is important for you to follow up with a doctor, nurse practitioner, or physician?s assistant reading teacher for ongoing care. If your symptoms become worse or you do not improve as expected and you are unable to reach your usual health ca (more content not included)... Normal [facility] CHLAMYDIA/GONOCOCCUS EMELYN (SW AB/URINE/PAPon 12-11-2021 Chlamydia trachomatis, EMELYN Negative Normal Negative [facility] Comment on above: Performed By: #### C T/NGNA #### [facility] [address] [address] [address] Soraya Tavarez Neisseria gonorrhoeae, EMELYN Negative Normal Negative [facility] Comment on above: Performed By: #### C T/NGNA #### [facility] [address] [address] [address] Soraya Tavarez VAGINITIS/VAGINOSIS DNA PROB Jon 12-10-2021 Elvia species Negative Normal Negative [facility] Comment on above: Performed By: #### V AGINT #### [facility] [address] [place] [address] Dr. Soraya Tavarez Gardnerella vaginalis Negative Normal Negative [facility] Comment on above: Performed By: #### V AGINT #### [facility] [address] [place] [address] Dr. Soraya Tavarez Trichomonas vaginalis Negative Normal Negative [facility] Comment on above: Performed By: #### V AGINT #### [facility] [address] [place] [address] Dr. Soraya Tavarez US PELVIS TRANSVAGon 022 US PELVIS TRANSVAG EXAMINATION: US PELVIS TRANSVAG HISTORY: Cyst of ovary ; pelvic pain COMPARISON: CT abdomen pelvis 11/01/2021 TECHNIQUE: Transabdominal and transvaginal sonographic examination. FINDINGS: UTERUS: Normal size and appearance. Uterus size: 6.7 x 2.3 x 4.1 cm ENDOMETRIUM: Normal homogeneous appearance. Endometrial thickness: 3 mm RIGHT OVARY: Normal size and appearance. Duplex Doppler demonstrates normal waveform and flow; resistive index 0.5. Ovary size: 3.4 x 1.4 x 2.7 cm LEFT OVARY: Normal size and appearance. Duplex Doppler demonstrates normal waveform and flow; resistive index 0.6. Ovary size: 3.1 x 1.7 x 1.4 cm CUL-DE-SAC: Unremarkable. No significant free fluid. BLADDER: Unremarkable. OTHER: None. IMPRESSION: 1. Unremarkable pelvic ultrasound. Electronically authenticated by: CLARY LOYD Date: 2021-12-08 14:57 Normal [facility] CORTISOLon 10-22-2020 CORTISOL 11.0 mcg/dL Normal [facility] Comment on above: Result Comment: Refe rence Range: AM 6.0-23.0 mcg/dL PM 0.0-9.0 mcg/dL Performed By: #### 3 0209 #### [facility] [address] [place] [id number] Thyroglobulin Ab Qn [IU]/mL Normal 0.0-4.0 [facility] Comment on above: Result Comment: INTE RPRETIVE INFORMATION: Thyroglobulin Antibody A value of 4.0 IU/mL or less indicates a negative result for thyroglobulin antibodies. The Thyroglobulin Antibody assay is being performed using the [employer] Access DxI method. Performed By: [facility] [address] [place] [address] [employer] Supervisor: Kassy Pickens MD TPO ANTIBODY [id number] TPO ANTIBODY 0.3 IU/mL Normal 0.0-9.0 [facility] Comment on above: Result Comment: Perf ormed By: [facility] [address] [place] [address] [employer] Supervisor: Kassy Pickens MD TSH RECEPTOR AB [id number] TSH RECEPTOR AB <0.90 Normal <=1.75 The [facility] Comment on above: Result Comment: Perf ormed By: [facility] [address] [place] [address] [employer] Supervisor: Kassy Pickens MD Vital Signs Date Time Vital Sign Value Performing Clinician Facility 09-18-2023 13:08-0500 Body height 162.6 cm Ben Mustafa MD Work Phone: [facility] 09-18-2023 13:08-0500 Body mass index (BMI) [Ratio] 23.79 kg/m2 Ben Mustafa MD Work Phone: [facility] 09-18-2023 13:08-0500 Body weight 62.87 kg Ben Mustafa MD Work Phone: [employer] 09-18-2023 13:08-0500 Diastolic blood pressure 64 mm[Hg] Ben Mustafa MD Work Phone: [employer] 09-18-2023 13:08-0500 Heart rate 89 /min Ben Mustafa MD Work Phone: [employer] 09-18-2023 13:08-0500 Systolic blood pressure 109 mm[Hg] Ben Mustafa MD Work Phone: [employer] 07-22-2023 10:10-0500 Body height 162.56 cm Tiesha Pittsmond Other [employer] Other 07-22-2023 10:10-0500 Body mass index (BMI) [Ratio] 20.94 kg/m2 Tiesha Pittsmond Other [employer] Other 07-22-2023 10:10-0500 Body temperature 98.1 [degF] Tiesha Andrews Other [employer] Other 07-22-2023 10:10-0500 Body weight 55.34 kg Tiesha Andrews Other [employer] Other 07-22-2023 10:10-0500 Respiratory rate 18 /min Tiesha Pittsmond Other [employer] Other 07-22-2023 10:10-0500 SaO2% (BldA) [Mass fraction] 98 % Tiesha Pittsmond Other [employer] Other 05-09-2023 14:30-0400 Body height 162.56 cm Toña Pierre Other [employer] Other 05-09-2023 14:30-0400 Body mass index (BMI) [Ratio] 17.64 kg/m2 Toña Pierre Other [employer] Other 05-09-2023 14:30-0400 Body weight 46.63 kg Toña Pierre Other [employer] Other 05-09-2023 14:30-0400 Diastolic blood pressure 64 mm[Hg] Toña Pierre Other [employer] Other 05-09-2023 14:30-0400 Systolic blood pressure 104 mm[Hg] Toña Pierre Other [employer] Other 10-21-2022 12:30-0500 Body height 162.56 cm Toña Pierre Other [employer] Other 10-21-2022 12:30-0500 Body mass index (BMI) [Ratio] 18.71 kg/m2 Toña Pierre Other [employer] Other 10-21-2022 12:30-0500 Body weight 49.44 kg Toña Pierre Other [employer] Other 10-21-2022 12:30-0500 Diastolic blood pressure 60 mm[Hg] Toña Pierre Other [employer] Other 10-21-2022 12:30-0500 SaO2% (BldA) [Mass fraction] 97 % Toña Pierre Other [employer] Other 10-21-2022 12:30-0500 Systolic blood pressure 108 mm[Hg] Toña Pierre Other [employer] Other 10-17-2022 17:39-0500 Diastolic blood pressure 53 mm[Hg] MD Toña Pierre Work Phone: [facility] 10-17-2022 17:39-0500 Heart rate 95 /min MD Toña Pierre Work Phone: [facility] 10-17-2022 17:39-0500 Respiratory rate 16 /min MD Toña Pierre Work Phone: [facility] 10-17-2022 17:39-0500 SaO2% (BldA) [Mass fraction] 98 % MD Toña Pierre Work Phone: [facility] 10-17-2022 17:39-0500 Systolic blood pressure 102 mm[Hg] MD Toña Pierre Work Phone: [facility] 10-17-2022 15:42-0500 Body height 162.56 cm MD Toña Pierre Work Phone: [facility] 10-17-2022 15:42-0500 Body temperature 97.8 [degF] MD Toña Pierre Work Phone: [facility] 10-17-2022 15:42-0500 Body weight 50.1 kg MD Toña Pierre Work Phone: [facility] 05-31-2022 14:29-0400 Blood Pressure Location [facility] 05-31-2022 14:29-0400 Diastolic blood pressure 60 mm[Hg] [facility] 05-31-2022 14:29-0400 Heart rate 68 /min [facility] 05-31-2022 14:29-0400 Respiratory rate 16 /min [facility] 05-31-2022 14:29-0400 Systolic blood pressure 108 mm[Hg] [facility] Encounters Encounter Date Encounter Type Care Provider Facility Start: 09-18-2023 End: 09-18-2023 Office outpatient visit 25 minutes Ben Mustafa MD Work Phone: [facility] Comment on above: Heartburn during pre gnancy in third trimester (Primary Dx); Cardiovascular disease of mother in , antepartum, third trimester; Postural orthostatic tachycardia syndrome; cardiac echogenic focus, antepartum, single or unspecified fetus Start: 07-27-2023 ambulatory MELINA NORIS [facility] Start: 07-24-2023 End: 07-24-2023 ambulatory STEPHEN FOX Not Available Start: 07-22-2023 End: 07-22-2023 ambulatory Tiesha Andrews Other [employer] Other Start: 07-22-2023 Office outpatient vi sit 15 minutes Tiesha Andrews [facility] [place] Start: 05-25-2023 End: 05-25-2023 ambulatory Toña Pierre Other [employer] Other Start: 05-25-2023 Telephone encounter Toña Pierre [facility] Start: 05-09-2023 End: 05-09-2023 ambulatory Toña Pierre Other [employer] Other Start: 05-09-2023 Office outpatient vi sit 15 minutes Toña Pierre [facility] Start: 11-02-2022 End: 11-03-[address] TOÑA PIERRE Facility: Start: 10-21-2022 End: 10-21-2022 ambulatory Toña Pierre Other [employer] Other Start: 10-21-2022 Office outpatient vi sit 15 minutes Toña Pierre [facility] Start: 10-17-2022 End: 10-17-2022 Emergency department patient visit Kaci Morales Facility:[facility] Start: 10-17-2022 End: 10-17-2022 Emergency department patient visit MD Toña Pierre Work Phone: [facility] Work Phone: Start: 10-04-2022 End: 10-05-[address] CLARY LOYD Facility: Start: 08-16-2022 End: 08-17-[address] CLARY LOYD Facility:[facility] Start: 07-26-2022 End: 07-27-[address] CLARY LOYD Facility:[facility] Start: 07-19-2022 Well child visit Toña Pierre Other [employer] Other Start: 07-12-2022 End: 07-13-[address] TOÑA PIERRE Facility: Start: 05-31-2022 End: 06-01-2022 ambulatory Elsi SUE Facility: [facility] Start: 05-31-2022 End: 05-31-2022 Patient encounter procedure [facility] Start: 05-02-2022 ambulatory TOÑA PIERRE PROVIDER Facility: [facility] Start: 12-08-2021 End: 12-08-[address] TOÑA PIERRE Facility: Start: 12-08-2021 End: 12-09-[address] ELSI SUE . Facility: Procedures Date Procedure Procedure Detail Performing Clinician Start: 07-11-2023 Microscopic observat ion [Identifier] in Cervix by Cyto stain Ben Mustafa MD Work Phone: Start: 10-17-2022 CT of head without contrast MD Toña Pierre Work Phone: Start: 10-17-2022 Plain chest X-ray MD Maribel Pierre Work Phone: Incision and drainag e of axilla Sal DOWNS Plan of Treatment Date Care Activity Detail Author Start: 07-11-2026 Screening for malignant neoplasm of cervix Pap Smear [facility] Start: 09-18-2024 Adult BMI Screening Adult BMI Screen ing [facility] Start: 09-18-2024 Tobacco Screening Tobacco Screening [facility] Start: 12-06-2023 End: 12-06-2023 Patient encounter procedure 12/06/2023 10:30 AM EDT Office Visit [facility] [place] [id number] Genoveva Bailon MD [address] [facility], [address], [address] [place] [id number] [facility] Start: 10-16-2023 End: 10-16-2023 Telemedicine consultation with patient 10/16/2023 2:30 PM EST Telemedicine [facility] [address] [place] [id number] Ben Mustafa MD [address] [place], [place] [id number] [facility] Start: 09-18-2023 End: 09-18-2024 Echo complete W/O contrast Echo complete W/O contrast Echocardiography Routine Cardiovascular disease of mother in , antepartum, third trimester Postural orthostatic tachycardia syndrome cardiac echogenic focus, antepartum, single or unspecified fetus Heartburn during in third trimester Expected: 09/18/2023, Expires: 09/18/2024 [facility] Comment on above: Expected: 09/18/2023 , Expires: 09/18/2024 Start: 05-12-2023 Influenza vaccination Influenza Vacc ine [facility] Start: 10-17-2022 Bacteria identified in Urine by Culture [facility] Start: 2019 DTaP,Tdap and Td Vaccines (1 - Tdap) DTaP,Tdap and Td Vaccines (1 - Tdap) [facility] Start: 2012 [facility] End: 09-17-2024 ECG 12 lead ECG 12 lead ECG Routine Cardiovascular disease of mother in , antepartum, third trimester Postural orthostatic tachycardia syndrome cardiac echogenic focus, antepartum, single or unspecified fetus Heartburn during in third trimester 1 Occurrences starting 09/18/2023 until 09/17/2024 [facility] Work Phone: Comment on above: 1 Occurrences starti ng 09/18/2023 until 09/17/2024 Patient Education Head Injury in Adults F [facility] Work Phone: Patient referral [facility] Work Phone: Immunizations Immunization Date Immunization Notes Care Provider Luisito spencer 04-09-2019 meningococcal oligosaccharide (groups A, C, Y and W-135) diphtheria toxoid conjugate vaccine (MCV4O) Toña Pierre Other [employer] Other Payers Date Payer Category Payer Medicaid [employer] [place] [id number] 2023-Present [phone] [address] [place] [address] [id number] 2023 Medicaid [id number] 2022 Self-pay [id number] 2000 Unknown [id number] 2000 Unknown [id number] 2000 Unknown [id number] 2000 Unknown [id number] 2000 Unknown [id number] 2000 Unknown [id number] 2000 Unknown [id number] 2000 Unknown [id number] 2000 Unknown [id number] 1979 Unknown [id number] 1959 Unknown [id number] Unknown [id number] Social History Date Type Detail Facility Start: 05-31-2022 End: 06-16-2023 Tobacco smoking status Never smoked tobacco (finding) [facility] Tobacco smoking status Never [facility] Start: 02-20-2019 End: 09-18-2023 Sex Assigned At Female [facility] Start: 10-17-2022 [facility] Start: 2000 Sex Assigned At Female [facility] Start: 06-16-2023 Tobacco use and exposure Smokeless tobacco non-user [facility] Start: 09-18-2023 Alcohol intake Lifetime non-d rose (finding) [facility] Start: 02-20-2019 End: 09-18-2023 History of Social function [facility] Start: 03-16-[address] [facility] Start: 2000 Sex Assigned At Not on file P [facility] Functional Status Date Assessment Result Facility 05-31-2022 Functional Status N/A [facility] Clinical Notes 02-07-2022 to 09-18-2023 Demi Wilder RN - 09/18/2023 2:00 PM Aliyah Mustafa MD - 09/18/2023 2:00 PM EST Note Date & Type Note Facility 09-18-2023 History of Present illness Narrative Headache/epigastric pain/blurry vision/swelling? SOME HEARTBURN. Cramping/contractions? NO Abnormal vaginal discharge? NO Spotting or vaginal bleeding? NO Loss of fluid like your water may have broken? NO Recent ER visits or hospitalizations? NO Any concerns that you would like me to mention to the provider today? NO VISIT RECOMMENDATIONS ARE OUTLINED IN BOLD AT THE BOTTOM OF THIS NOTE. Dear Dr. Sue: Thank you for sending this patient secondary to cardiovascular disease in . Please also see any US note and (if concomitant visit) Genetic counselor note. Total time by Dr. Mustafa is in addition to time needed to perform and interpret any ultrasound. Overall care, Zika virus screening, Covid-19 vaccination counseling, influenza vaccination counseling and unrelated Genetic screening (cystic fibrosis, muscular dystrophy, thalassemia, sickle cell trait, etc.) is as per the excellent care of the patient's provider team. Please note that ultrasound is not diagnostic for aneuploidy, will not detect all structural abnormalities, and is not diagnostic for Genetic diseases, even if multiple exams are performed during a given . Report prepared via voice recognition software. Although report is reviewed for accuracy prior to finalization, unrecognized typographical errors may be present. Please contact us with any questions regarding report. Total time of visit today was 32 minutes. 24 minutes were direct [id number] for counseling and coordination of care during visits itself. An additional 3 minutes or for same day preparation to see the patient. Another 6 minutes were needed were needed to prepare report and or to perform other duties to complete visit. Thank you for sending this patient. Ben Mustafa MD Maternal Medicine Professor, [facility] [phone] Office [phone] Personal Cell Phone Office Note: Patient Active Problem List Diagnosis Cardiovascular disease of mother in , antepartum, third trimester Postural orthostatic tachycardia syndrome cardiac echogenic focus, antepartum Heartburn during in third trimester (problem list updated to reflect findings noted today) Current Outpatient Medications on File Prior to Visit Medication Sig PNV 19/iron ps,heme/folic/dha ( MV & MIN ORAL) Take 1 Gum by mouth in the morning. hydrOXYzine (ATARAX) 10 mg tablet Take 1 tablet (10 mg total) by mouth 3 (three) times a day as needed for itching. (Patient not taking: Reported on 09/18/2023) midodrine (PROAMATINE) 2.5 mg tablet Take 1 tablet (2.5 mg total) by mouth daily. (Patient not taking: Reported on 08/08/2023) ondansetron (ZOFRAN) 4 mg tablet Take 1 tablet (4 mg total) by mouth every 8 (eight) hours as needed for nausea or vomiting. (Patient not taking: Reported on 08/08/2023) No current facility-administered medications on file prior to visit. (the patient was using Pepcid. During this encounter, we discontinued the Pepcid and placed a prescription for Zofran so the Pepcid is not reflected in the medication list). Vitals: 09/18/23 1308 BP: 109/64 Pulse: 89 This patient is a 22-year-old 1 para 0 at 28 weeks and 4 days gestation. The patient underwent evaluation of cardiac syncope. At least 1 provider indicated the patient had neurocardiogenic syncope. The patient saw a senior business development analyst that recommended EKG and echocardiogram. The problem list indicates a shortened [place] interval. The patient is unaware of pre-excitation diagnosis. The patient saw my partner Dr. Nuñez. Midodrine that the patient previously used was discontinued upon her recommendation. Since discontinuation, the patient does not note any changes in her symptoms. Her biggest symptom is heartburn. My partner prescribed Pepcid. The patient use the Pepcid but then discontinued it. She does not use antacids. She limits some foods that she takes. The patient denies acute symptoms or issues today. At ultrasound, Martinez with biometry consistent with supplied dating observed. No obvious structural abnormalities noted although imaging remains suboptimal. Echogenic cardiac focus finding noted. Earlier in , it appears that the patient underwent cell free DNA screening with screen negative results. A referral was apparently made to a neurologist which has not successfully been concluded. The patient's symptoms included dizziness as well as syncope. From reviewing the cardiology note from Dr. Hamm, it looks as if the suspected diagnosis is neurocardiogenic syncope. As noted above, recommended echocardiogram and EKG apparently not ordered her canceled. We will place order for referral for these studies. I will also copy the note to Dr. Hamm to make sure Dr. Hamm does not need to follow-up with the patient or suggest referral at this time. Generally speaking, assuming the patient has neurocardiogenic syncope, outcome is typically not altered although we would wish for the patient not to have symptoms. It would be important to determine whether the patient is at risk for pre-excitation however since some medications may affect. Originally, the patient's primary OB provider wanted the patient to be seen by senior business development analyst. If this diagnosis is not want the Dr. Hamm wishes to see the patient for, then we can make additional referral elsewhere if as needed or as recommended by Dr. Hamm. Insofar as midodrine use, it appears the patient did not noted difference with her without use of midodrine.We reviewed medication use in . Approximately 3-5% of pregnancies resulted offspring with anatomical variation and or congenital malformation. Detection rate is variable depending upon the expertise of the evaluating provider. Some variations or malformations not associated with significant lifetime risk while others are. In order to tell if a medication were to increase the likelihood of congenital malformation (and in order to tell whether a specific exposure is associated with a specific abnormality) is problematic secondary to challenges imposed by on the performance of randomized control trials. Very few medications are specifically FDA approved for use in . In fact, classification for medication use in has been changed because of this limitation. Information is supplied rather than specific classification. Sometimes, safety or lack thereof can be implied based upon historical use. Medications that are new often do not have retrospective available data for determination of safety. Retrospective cohort and database reviews often are used to determine risk. Retrospective data sets may not demonstrate individual data granularity to the degree that would eliminate or explain confounding exposures. Medication exposure also may be gestational age specific. Many medications only or associated with a potential risk during a specific gestational age range (often in the 2nd half of the 1st trimester ). Some medications or exposures may be associated with adverse effects which may not be congenital malformations as such from exposure during . Medications should be given in a balance of risk to benefit. Midodrine is used in . And will data suggest increased risk of affects and embryo affects. We reviewed RE[employer] database. Case reports in human have been noted. Treatment review published by Dr. Max (Autonomic Neuroscience- Basic and Clinical, 2018) indicated although data are incomplete, the midodrine can be use during . Earlier case reports were referenced in his review. It appears that Dr. Hamm discussed midodrine use with Dr. Max. So midodrine as theoretical risk but is often used in a balance of risk to benefit. In this patient, it appears that the midodrine did not significantly improve her symptoms. We reviewed heartburn in . It looks as if this patient is a candidate for antacid as well as proton pump inhibitor therapy. We confirmed that available data does not support that Prilosec increases the likelihood of dysrhythmia. If this patient fails Prilosec, she may be a candidate for Carafate use 4 times per day. If not successful, then GI referral and follow-up recommended. We reviewed ultrasound results.Echogenic cardiac focus finding is seen in approximately 1-5% of pregnancies during mid imaging. The finding is not directly associated with structural or functional abnormalities of the heart. No other during or after specific follow-up is needed. If this fetus had an undiagnosed congenital heart defect, the presence of echogenic cardiac focus finding would not necessarily increase the likelihood of an undiagnosed cardiac defect. The finding increases the relative risk of trisomy 21 over the background underlying risk. In patients with isolated finding who otherwise is historically at low risk or by testing at low risk, the actual increase in risk usually not considered clinically significant by most. Most recent [facility] guidelines recommend cell free DNA screening as primary choice of testing unless a particular patient desires invasive testing. Any patient can have any choice of testing, but cell free DNA screening recommended. If screening is low risk, the finding is considered as an ultrasound variant. The patient was satisfied with chromosomal screening results she received. We gave her written information. We did not schedule the patient for follow-up imaging although could attempt. Clinical utility lessens markedly as advances in the 3rd trimester. Comments, conclusions, recommendations: Echogenic cardiac focus finding observed. Structural assessment of fetus unremarkable although incomplete. The patient was satisfied chromosomal screening results. No other follow-up otherwise needed regarding echogenic cardiac focus finding. We did not schedule the patient for follow-up structural imaging attempts. However if desired by patient and her provider team, please contact our office and schedule accordingly. After discussion, we placed an initial prescription for Prilosec. The patient also will begin antacid therapy. She should get follow-up prescriptions by her primary OB provider. She will discontinue the Pepcid because she does not feel it is effective. Tertiary therapy would be for use of Carafate. If used, Carafate should be given 4 times per day. Carafate works better if antacids or also not concomitantly used (although I would recommend continuation of Prilosec). Follow-up in management as per primary OB provider team. Refills as per primary OB provider team. The patient does not feel that midodrine was effective. Midodrine may be used in a balance of risk to benefit although theoretical concerns with use are present. Associated that the patient either canceled her did not have echocardiogram and EKG as recommended by Dr. Hamm scheduled. We rescheduled. We will copy are note to Dr. Hamm. If the patient needs to see an additional or other provider regarding this issue, we will await Dr. Hamm's guidance. We scheduled the patient for telehealth follow-up visit in approximately 4 weeks. Otherwise, we have not scheduled additional follow-up but are happy to otherwise see her imaged the patient if as needed. Our office staff will instruct the patient regarding telehealth use. If the patient is not successful, we would be happy to see her in person. Thank you for letting us see this patient today. Primary and overall management of is as per excellent care primary OB provider. documented in this encounter [facility] [employer] 07-27-2023 Note Subjective Jenny Scott is a 22 y.o. 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 Social History Tobacco Use Smoking status: Former Types: Cigarettes Smokeless tobacco: Never Substance Use Topics Alcohol use: Never Drug use: Not Currently Types: Marijuana HPI 22 y/o w/ PMH of syncope presents with episodes of dizziness/presyncope. Previously seen in the autonomic clinic and was placed on midodrine that helped decrease episodes. Had event monitor and tilt table test in 2020 that were both negative for causes of syncope. 07/27/23 She is having worsening pre-syncope since being She is now 20 weeks She has pre-syncope with lightheadedness almost daily She typically sits down and then resolves over 5-15 minutes Review of Systems Constitutional: Positive for malaise/fatigue. Cardiovascular: Positive for chest pain and palpitations. Respiratory: Positive for cough and shortness of breath. Neurological: Positive for dizziness and light-headedness. All other systems reviewed and are negative. Objective Visit Vitals BP 110/77 (BP Location: Left arm, Patient Position: Sitting, BP Cuff Size: Adult) Pulse 101 Ht 1.626 m (5' 4 ) Wt 58.1 kg (128 lb) SpO2 98% BMI 21.97 kg/m??? Smoking Status Former BSA 1.62 m??? Physical Exam Constitutional: General Appearance: well-developed, appears stated age. Level of Distress: no acute distress. Psychiatric: Mental Status: alert and normal affect. Orientation: oriented to time, place, and person. Insight: good judgement. Eyes: Lids and Conjunctivae: non-injected and no discharge. Pupils: PERRLA. ENMT: Ears: no lesions on external ear. Nose: no lesions on external nose. Neck: Neck: supple and trachea midline. Jugular Veins: normal jugular venous pressure. Lungs: Respiratory Effort: unlabored. Chest Exam: no thoracic deformity or chest wall tenderness and normal curvature. Percussion: resonant. Auscultation: no rales or rhonchi and normal breath sounds. Cardiovascular: Precordial Exam: no heaves or precordial thrills and non displaced focal PMI. Rate And Rhythm: regular. Heart Sounds: normal S1 and s2; no rub, gallop, or click; and physiologically split S2. Systolic Murmur: not heard. Diastolic Murmur: not heard. Extremities: no cyanosis, edema, or peripheral signs of emboli. Peripheral Pulses: Pulses: full and equal in all extremities except if noted. Abdomen: Inspection and Palpation: non distended or tender and soft. Musculoskeletal: Inspection: no joint tenderness or swelling. Neurologic: Gait: normal gait. Motor: normal strength and tone. Skin: Inspection and Palpation: warm and dry. Allergies No Known Allergies Medications Current Outpatient Medications: [id number] 29-1-400 mg combo pack,tablet and cap,DR, Take 1 tablet by mouth in the morning., Disp: , Rfl: midodrine (Proamatine) 5 mg tablet, Take 1 tablet (5 mg) by mouth if needed in the morning and at bedtime (lightheadedness)., Disp: 60 tablet, Rfl: 1 Recent Labs No visits with results within 6 Month(s) from this visit. Latest known visit with results is: [facility] Encounter on 10/22/2020 Component Date Value TSH Receptor Antibody 10/22/2020 <0.90 Imaging and other tests EKG 07/17/23: NSR, short [place] interval Assessment/Plan Diagnoses and all orders for this visit: Syncope and collapse - ECG 12 lead; Future - midodrine (Proamatine) 5 mg tablet; Take 1 tablet (5 mg) by mouth if needed in the morning and at bedtime (lightheadedness). - Complete Echo (TTE) w/wo Imaging Agent, Strain, 3D, Bubble Study; Future - Ambulatory referral to Cardiac Electrophysiology; Future Pre-syncope - ECG 12 lead; Future - midodrine (Proamatine) 5 mg tablet; Take 1 tablet (5 mg) by mouth if needed in the morning and at bedtime (lightheadedness). - Complete Echo (TTE) w/wo Imaging Agent, Strain, 3D, Bubble Study; Future - Ambulatory referral to Cardiac Electrophysiology; Future Neurocardiogenic pre-syncope - ECG 12 lead; Future - midodrine (Proamatine) 5 mg tablet; Take 1 tablet (5 mg) by mouth if needed in the morning and at bedtime (lightheadedness). - Complete Echo (TTE) w/wo Imaging Agent, Strain, 3D, Bubble Study; Future - Ambulatory referral to Cardiac Electrophysiology; Future Shortened [place] interval Pre-syncope - Will order an echocardiogram - she has known vasovagal syncope Previously under control with midodrine daily I discussed with Dr. Max, who is our expert on syncope and vasovagal syncope He has used midodrine in patients and believes it is safe He also felt that symptoms should gradually improve in the next few weeks 2. Short [place] interval on EKG: Consider event monitor and EP evaluation if having palpit (more content not included)... [facility] 07-22-2023 Evaluation note Encounter Date Diagnosis Assessment Notes Jul, Contact with and (suspected) exposure to covid-19 (ICD-10 - Z20.822) Jul, Right otitis media, unspecified otitis media type (ICD-10 - H66.91) Middle ear infection: adult home care material was printed Drink plenty fluids, get plenty of rest. Take the amoxicillin as prescribed until gone. Take Tylenol as needed for aches pains or fevers. You may take Delsym or Robitussin for the cough. 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 Off work tomorrow and Monday, may return to work on Monday. Jul, Sore throat (ICD-10 - J02.9) [employer] Other 08-29-2023 Evaluation note* Encounter Date Diagnosis Assessment Notes Treatment Notes Treatment Clinical Notes Apr, Mild intermittent reactive airway disease without complication (ICD-10 - J45.20) Discussed her symptoms and agreed to HFA prn. Apr, Neurocardiogenic syncope (ICD-10 - R55) Midodrine is catagory C and she has been off of it for a few weeks. Will not refill and notify Dr. Sue. [employer] Other 02-10-2023 Evaluation note* Encounter Date Diagnosis Assessment Notes Treatment Notes Treatment Clinical Notes Oct, Neurocardiogenic syncope (ICD-10 - R55) Increased dose of med. Has been through workup with [facility]. Will refer to Neurology to r/o seizure component. Note given for work. [employer] Other 01-24-2023 NotePROCEDURE: XR TIB_FIB LT 2V HISTORY: Pain in lower limb ; persistent mid lower leg pain; follow-up stress reaction COMPARISON: XR tib-fib left 08/16/2022 FINDINGS: BONES:No fracture, dislocation, or periosteal reaction. SOFT TISSUES:No visible soft tissue swelling. EFFUSION:None visible. OTHER: Negative. IMPRESSION: 1. No suspicious bone abnormality. Electronically authenticated by: CLARY LOYD Date: 2022-10-04 15:34[facility]12-06-2022 NotePROCEDURE: XR TIB_FIB LT 2V, XR ANKLE LT MIN 3 V HISTORY: Pain in lower limb ; follow-up stress reaction of left tibia COMPARISON: XR ankle left 07/26/2022, 07/12/2022 FINDINGS: BONES:No fracture, acute abnormality, or significant arthropathy. SOFT TISSUES:No visible soft tissue swelling. EFFUSION:None visible. OTHER: Negative. IMPRESSION: 1. Normal appearance of left tibia-fibula and ankle. Electronically authenticated by: CLARY LOYD Date: 2022-08-16 09:39[facility]12-06-2022 NotePROCEDURE: XR TIB_FIB LT 2V, XR ANKLE LT MIN 3 V HISTORY: Pain in lower limb ; follow-up stress reaction of left tibia COMPARISON: XR ankle left 07/26/2022, 07/12/2022 FINDINGS: BONES:No fracture, acute abnormality, or significant arthropathy. SOFT TISSUES:No visible soft tissue swelling. EFFUSION:None visible. OTHER: Negative. IMPRESSION: 1. Normal appearance of left tibia-fibula and ankle. Electronically authenticated by: CLARY LOYD Date: 2022-08-16 09:39[facility]11-15-2022 NotePROCEDURE: XR ANKLE LT MIN 3 V HISTORY: Pain of left ankle joint ; follow-up ankle sprain COMPARISON: XR ankle left 07/12/2022 FINDINGS: BONES:No fracture, acute abnormality, or significant arthropathy. SOFT TISSUES:No visible soft tissue swelling. EFFUSION:None visible. OTHER: Negative. IMPRESSION: 1. No acute bone abnormality or appreciable degenerative changes. Electronically authenticated by: CLARY LOYD Date: 2022-07-26 15:21[facility]11-01-2022 NotePROCEDURE: XR ANKLE LT MIN 3 V COMPARISON: None. HISTORY: Injury of left ankle FINDINGS: BONES:No fracture, acute abnormality, or significant arthropathy. SOFT TISSUES:Negative. No visible soft tissue swelling. EFFUSION:None visible. OTHER: Negative. IMPRESSION: No acute disease. Electronically authenticated by: CHERRIE FLORES Date: 2022-07-12 13:06[facility]09-20-2022 NoteChief Complaint consultation for abdominal pain HPI Staff 21 year old female presents on consultation from Dr. Sue for diffuse abdominal pain. Reports 2 month history of intermittent sharp abdominal pain. States pain varies in location. Pain is exacerbated by tomato based products. Denies nausea, vomiting, heartburn or indigestion. No change in bowel habits. Denies decrease in appetite or weight loss. ABD US, pelvis US and CT ABD/pelvis all unremarkable. History of Present Illness 21 yo female referred for 2 month h/o diffuse abdominal pain; describes this as sharp, crampy, lasts approximately 20 minutes, no relieving factors; usually worse with eating, particularly acidic foods, but can be other foods; no N/V, no dysphagia or early satiety; no GERD symptoms; no change in bms, some h/o intermittent constipation, but patient reports this is improved lately, no melena or hematochezia; no wt loss; no previous abdominal operations; recent abd/pelvic ct scan with ovarian cyst, otherwise normal; pelvic US wnl; evaluated by Gynecology, did not feel pain related to cyst; no fmhx of GI malignancy or IBD. smokes Marijuana frequently for anxiety. Review of Systems PHQ Score Initial Depression Screen Score: 0 ROS - Provider Constitutional: no fever, no sweats, no weight loss. Eyes: no glasses, no blurred vision, no visual loss. ENMT: no dentures, no hoarseness, no swallowing difficulties, no hearing loss, no ear infection(s),no nose bleeds. Cardiovascular: normal blood pressure, no chest pain, regular heartbeat, no heart murmur. Respiratory: no shortness of breath, no cough, no asthma, no wheezing. Gastrointestinal: no nausea, no vomiting, no diarrhea, no constipation, no blood in stool, no change in bowel habits, yes abdominal pain, no hepatitis. Genitourinary: no kidney stones, no urine infection, no dysuria. Musculoskeletal: no pain, no weakness. Skin: no changing moles, no rash, no skin lumps. Neurologic: no seizures, no epilepsy, no headache. Psychiatric: no emotional or psychiatric problem. Heme/Lymph: no bleeding problems, no anemia, no blood clots, no transfusions. Allergy/Immunologic: no swollen lymph nodes/glands, no IV drug abuse. Other: Additional ROS info: Except as noted in the above Review of Systems and in the History of Present Illness, all other systems have been reviewed and are negative or noncontributory. Physical Exam Vitals & Measurements HR: 68(Peripheral) RR: 16 BP: 108/60 HT: 64 in HT: 163.8 cm WT: 53.6 kg WT: 117.92 lb BMI: 19.98 HEENT: normal conjunctiva, sclera clear, no scleral icterus, EOM intact, PERRLA, oral mucosa moist without lesions. Neck: trachea midline, no mass, symmetric, no thyromegaly or nodules, no adenopathy Respiratory: lungs CTA, respirations non labored. Cardiovascular: regular rate and rhythm, no murmur, no pedal edema or varicosities. Gastrointestinal: soft, non distended, subjective tenderness, no peritoneal signs no masses, no palpable hernias, diastasis recti no, no hepatosplenomegaly; normal bs Lymphatic: no cervical adenopathy, Musculoskeletal: normal gait, digits and nails without infection, nodes, cyanosis, clubbing. Skin: no rashes, no lesions, no ulcers, no subcutaneous nodules, induration. Psychiatric/Neuro: oriented to time, place, person, judgement normal, affect appropriate for age, insight intact, no focal deficits. Tests: x-rays reviewed, review of old records completed, Assessment/Plan 1. Dyspepsia (R10.13: Epigastric pain) trial of PPI; may be related to anxiety/Marijuana use; if no improvement, recommend evaluation by Gastroenterology; call with problems/questions. Ordered: omeprazole, 20 mg = 1 cap(s), Oral, Daily, # 30 cap(s), Refills(s) 3, Pharmacy: [facility], 163.8, cm, 05/31/22 14:35:00 EDT, Height/Length Dosing, 53.6, kg, 05/31/22 14:35:00 EDT, Weight Dosing 2. Marijuana use, continuous (F12.90: Cannabis use, unspecified, uncomplicated) see # 1 Ordered: omeprazole, 20 mg = 1 cap(s), Oral, Daily, # 30 cap(s), Refills(s) 3, Pharmacy: [facility], 163.8, cm, 05/31/22 14:35:00 EDT, Height/Length Dosing, 53.6, kg, 05/31/22 14:35:00 EDT, Weight Dosing 3. Anxiety (F41.9: Anxiety disorder, unspecified) see # 1 Ordered: omeprazole, 20 mg = 1 cap(s), Oral, Daily, # 30 cap(s), Refills(s) 3, Pharmacy: [facility], 163.8, cm, 05/31/22 14:35:00 EDT, Height/Length Dosing, 53.6, kg, 05/31/22 14:35:00 EDT, Weight Dosing Follow-up No qualifying data available Problem List/Past Medical History Ongoing Anxiety Body mass index [BMI] 19.9 or less, adult Diffuse abdominal pain Dyspepsia Marijuana use, continuous Ovarian cyst Postural hypotension Historical UTI - Urinary tract infection Procedure/Surgical History Incision and drainage of axilla. Medications midodrine 2.5 mg oral tablet omeprazole 20 mg Cap-DR, 20 mg= 1 cap(s), Oral, Daily, 3 refills Allergies Macrobid (Vomi (more content not included)...[facility] HospitalComment on above:Result Comment: Electronically Signed By: VICTORIA FRANK, Sal Abdi.genaro\Date and Time Signed: 05/31/22 17:28 [id number] NotePatient Education Materials Follows:Disease COVID-19: What to Do if You Are Sick If you have a fever, cough or other symptoms, you might have COVID-19. Most people have mild illness and are able to recover at home. If you are sick: ? Keep track of your symptoms. ? If you have an emergency warning sign (including trouble breathing), call 911. Steps to help prevent the spread of COVID-19 if you are sick If you are sick with COVID-19 or think you might have COVID-19, follow the steps below to care for yourself and to help protect other people in your home and community. Stay home except to get medical care ? Stay home. Most people with COVID-19 have mild illness and can recover at home without medical care. Do not leave your home, except to get medical care. Do not visit public areas. ? Take care of yourself. Get rest and stay hydrated. Take byji-vha-[id number] medicines, such as acetaminophen, to help you feel better. ? Stay in touch with your doctor. Call before you get medical care. Be sure to get care if you havetrouble breathing, or have any other emergency warning signs, or if you think it is an emergency. ? Avoid public transportation, ride-sharing, or taxis. Separate yourself from other people As much as possible, stay in a specific room and away from other people and pets in your home. If possible, you should use a separate bathroom. If you need to be around other people or animals in or outside of the home, wear a mask. Tell your close contactsthat they may have been exposed to COVID-19. An infected person can spread COVID-19 starting 48 hours (or 2 days) before the person has any symptoms or tests positive. By letting your close contacts know they may have been exposed to COVID-19, you are helping to protect everyone. ? Additional guidance is available for those living in close quarters and shared housing. ? See COVID-19 and Animals if you have questions about pets. ? If you are diagnosed with COVID-19, someone from the health department may call you. Answer the call to slow the spread. Monitor your symptoms ? Symptoms of COVID-19 include fever, cough, or other symptoms. ? Follow care instructions from your healthcare provider and local health department. Your local health authorities may give instructions on checking your symptoms and reporting information. When to seek emergency medical attention Look for emergency warning signs* for COVID-19. If someone is showing any of these signs, seek emergency medical care immediately: ? Trouble breathing ? Persistent pain or pressure in the chest ? New confusion ? Inability to wake or stay awake ? Pale, alvarez, or blue-colored skin, lips, or nail beds, depending on skin tone *This list is not all possible symptoms. Please call your medical provider for any other symptoms that are severe or concerning to you. Call 911 or call ahead to your local emergency facility: Notify the gear cutting machine set up operator that you are seeking care for someone who has or may have COVID-19. Call ahead before visiting your doctor ? Call ahead. Many medical visits for routine care are being postponed or done by phone or telemedicine. ? If you have a medical appointment that cannot be postponed, call your doctor's office, and tell them you have or may have COVID-19. This will help the office protect themselves and other patients. Get tested? If you have symptoms of COVID-19, get tested. While waiting for test results, you stay awayfrom others, including staying apart from those living in your household. ? You can visit your state, [place], local, and [facility] department's website to look for the latest local information on testing sites. If you are sick, wear a mask over your nose and mouth ? You should wear a mask over your nose and mouth if you must be around other people or animals, including pets (even at home). ? You don't need to wear the mask if you are alone. If you can't put on a mask (because of trouble breathing, for example), cover your coughs and sneezes in some other way. Try to stay at least 6 feet away from other people. This will help protect the people around you. ? Masks should not be placed on young children under age 2 years, anyone who has trouble breathing,or anyone who is not able to remove the mask without help. Note: During the COVID-19 pandemic, medical grade facemasks are reserved for healthcare workers andsome first responders. Cover your coughs and sneezes ? Cover your mouth and nose with a tissue when you cough or sneeze. ? Throw away used tissues in a lined trash can. ? Immediately wash your hands with soap and water for at least 20 seconds. If soap and water are not available, clean your hands with an alcohol-based hand wood piler that contains at least 60% alcohol. Clean your hands often ? Wash your hands often with soap and water for at least 20 seconds. This is especially important after blowing your nose, coughing, or sneezing; going to the bathroom; and before eating (more content not included)...[facility] Evaluation + Plan note No data available for this section General Surgery [place] Evaluation noteNo assessment information available [facility] Work Phone: Evaluation noteNo InformationNort [facility] Other Evaluation note* Diagnosis Heartburn during in third trimester- Primary Cardiovascular disease of mother in , antepartum, third trimester Postural orthostatic tachycardia syndrome Unspecified tachycardia cardiac echogenic focus, antepartum, single or unspecified fetus [facility] - [facility]orted* Type Description Date Medical History Left medial tibial stress syndro me, subsequent encounter Medical History Pain in left lower leg Medical History Congenital pes cavus, left foot Medical History Acute left ankle pain Medical History Postural hypotension Medical History Diffuse abdominal pain Medical History Bronchitis Medical History Acute pain in female pelvis Medical History Ovarian cyst Surgical History CYST REMOVED AND DRAINED RIGHT ARM 2016 Hospitalization History SEE SURGICAL HX [employer] Other Hospital Discharge instructions No data available for this section General Surgery [facility] Discharge instructions Additional Instructions Push fluids Rest Avoid marijuana use Follow-up with your doctor call tomorrow for appointment Return if any problems persist or worsen including chest pain, shortness of breath, numbness, tingling, unilateral weakness or any other concern Take antibiotic as instructed until [facility] Work Phone: InstructionsNot on filedocumented in this encounter [facility] No data available for this section General Surgery [place] Summary Purpose Family History No Family History Records FoundNo Family History Records FoundNo Family History Records FoundNo Family History Records FoundNo Family History Records FoundNo Family History Records FoundNo Family History Records Found Advance Directives Advance Directive Response Recorded Date/ Time Advance Directives No November 18 020 6:47pm Chief Complaint and Reason for Visit Chief Complaint Passed out,weak Reason for Referral Specialty Diagnoses / Procedures Referred By William huerta Referred To Contact Diagnoses Cardiovascular disease of mother in , antepartum, third trimester Postural orthostatic tachycardia syndrome cardiac echogenic focus, antepartum, single or unspecified fetus Heartburn during in third trimester Procedures Echo complete W/O contrast Ben Mustafa MD [address] [place] [address] Referral ID Status Reason Start Date Expiration Date V isits Requested Visits Authorized [id number] Pending Review 09/18/2023 09/17/2024 1 1 Specialty Diagnoses / Procedures Referred By William huerta Referred To Contact Diagnoses Cardiovascular disease of mother in , antepartum, third trimester Postural orthostatic tachycardia syndrome cardiac echogenic focus, antepartum, single or unspecified fetus Heartburn during in third trimester Procedures ECG 12 lead Ben Mustafa MD [address] [place] [address] Referral ID Status Reason Start Date Expiration Date V isits Requested Visits Authorized [id number] Pending Review 09/18/2023 09/17/2024 1 1 Reason 11/23/22 Possible seizure - labs and CT at [facility]. Diagnosis 1 Neurocardiogenic syn cope (R55) Referral Organization [facility] lucretia Referring Provider First Name Toña Referring Provider Last Name Ignacio Referring Provider Specialty Family [facility] Referred Organization [facility] Referred Provider Avril Irving [place] [address] [place] Referred Provider Specialty Neurology Referral Priority Routine Referral Appointment Date 2022-11-23 General Notes Tiara Squires 10:09:19 AM >received today Tiara Squires 2022 10:30:07 AM >attachments made, form filled out, referral faxed Tiara Squires 11/02/2022 08:54:20 AM >faxed first attempt letter Tiara Squires 11/02/2022 11:14:16 AM >received fax with appt date Additional Source Comments INFORMATION SOURCE (unrecogn ized section and content) DATE CREATED AUTHOR 12/23/2020 [facility] DATE CREATED AUTHOR AUTHOR'S ORGANIZ ATION 02/10/2022 [facility] DATE CREATED AUTHOR AUTHOR'S ORGANIZ ATION 06/11/2022 [facility] DATE CREATED AUTHOR AUTHOR'S ORGANIZ ATION 10/25/2022 [facility] DATE CREATED AUTHOR AUTHOR'S ORGANIZ ATION 11/06/2022 [facility] DATE CREATED AUTHOR AUTHOR'S ORGANIZ ATION 07/24/2023 [facility] EP[facility] DATE CREATED AUTHOR AUTHOR'S ORGANIZ ATION 08/17/2023 [facility] Care Team (unrecognized sect ion and content) Team Status: Inactive Member Role Status Dates Toña Pierre MD Primary Care Provider Active Kaci Morales APRN Emergency Provider Active Team Status: Active Member Role Status Dates Toña Pierre MD Primary Care Provider Active Goals (unrecognized section and content) Goals may be documented in a n alternate section REASON FOR VISIT (unrecogniz ed section and content) Reason Comments Neurocardiogenic Syncope Hypotension FOR RECORDS PERTAINING TO PATIENTS WHO ARE OR HAVE BEEN ENROLLED IN A CHEMICAL DEPENDENCY/SUBSTANCEABUSE PROGRAM, SOME INFORMATION MAY BE OMITTED. This clinical summary was aggregated from multiple sources. Caution should be exercised in using it in the provision of clinical care. This summary normalizes information from multiple sources, and as a consequence, information in this document may materially change the coding, format and clinical context of patient data. In addition, data may be omitted in some cases. CLINICAL DECISIONS SHOULD BE BASED ON THE PRIMARY CLINICAL RECORDS. [facility]. provides no warranty or guarantee of the accuracy or completeness of information in this document.
[2023-09-19] MEDS: ACETAMINOPHEN 160 MG/5 ML ORAL.SUSP 930 MG PO (15:33)
[2023-09-19 15:42] LABS: Influenza Virus A Antigen Negative; Influenza Virus B Antigen Negative; Internal Control Within Normal Limits; SARS-CoV-2 Ag NEGATIVE (NEGATIVE)
[2023-09-19 15:52] LABS: Internal Control Within Normal Limits; Strep A Antigen Screen Negative
[2023-09-19 16:08] VITALS: PULSE 122; O2SAT 95
== END 2023-09-19 16:09 | disposition home or self-care (01) ==
PROVIDERS: Physician Assistant; Emergency Provider Emergency Medicine; PCP Family Medicine
DX: O99.513 Diseases of the respiratory system complicating pregnancy, third trimester (principal); J06.9 Acute upper respiratory infection, unspecified; Z3A.29 29 weeks gestation of pregnancy; Z79.899 Other long term (current) drug therapy; Z87.891 Personal history of nicotine dependence; Z20.822 Contact with and (suspected) exposure to COVID-19
CPT/HCPCS: 87070; 87635; 87804; 87811; 87880; 99285

== ENCOUNTER 2023-11-13 20:19 | Outpatient (REF) | payer BC, OTHER, SELFPAY ==
--- OUTSIDE RECORDS SUMMARY | 2023-11-13 20:23 | XMS_ITS | CCD ---
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 Normal [facility] Cannabinoids [Presence] in U rine by Screen methodOrdered By: Kaci Morales on 10-17-2022 Cannabinoids Screen Ql (U) Positive Negative [facility] Comment on above: These are unconfirme [...] (Urine sed) None seen [LPF] None Seen [facility] Color Auto (U)Ordered By: Yuriy Morales on 10-17-2022 Color (U) Dark yellow Yellow [facility] Complete Blood Count Auto Di ffon 10-17-2022 Basophils (Bld) [#/Vol] 0.0 10*3/uL Normal 0.0-0.2 [facility] Comment on above: Result Comment: PERF ORMED BY: [place] [address] PATHOLOGIST SPEECH CORRECTION ASSISTANT ZEB BASURTO M.D. Performed By: #### H S TROP, BMP, CBC #### [facility] [address] [place] [address] Basophils/100 WBC (Bld) 0.4 % Normal . [facility] Comment on above: Performed By: #### H S TROP, BMP, CBC #### [address] Eosinophils (Bld) [#/Vol] 0.0 10*3/uL Normal 0.0-0.45 [facility] Comment on above: Performed By: #### H S TROP, BMP, CBC #### [address] Eosinophils/100 WBC (Bld) 0.4 % Normal . [facility] Comment on above: Performed By: #### H S TROP, BMP, CBC #### [address] Erythrocyte distribution width (RBC) [Ratio] 13.0 % Normal 11.9-15.3 [facility] Comment on above: Performed By: #### H S TROP, BMP, CBC #### [address] Hematocrit (Bld) [Volume fraction] 37.2 % Normal 34.0-46.4 [facility] Comment on above: Performed By: #### H S TROP, BMP, CBC #### [facility] [address] [place] [address] [place] Hemoglobin (Bld) [Mass/Vol] 12.4 g/dL Normal 11.8-15.4 [facility] Comment on above: Performed By: #### H S TROP, BMP, CBC #### [facility] [address] [place] [address] Lymphocytes (Bld) [#/Vol] 1.1 10*3/uL Normal 1.00-4.8 [facility] Comment on above: Performed By: #### H S TROP, BMP, CBC #### [facility] [address] [place] [address] [place] Lymphocytes/100 WBC (Bld) 14.5 % Normal . [facility] Comment on above: Performed By: #### H S TROP, BMP, CBC #### [facility] [address] MCH (RBC) [Entitic mass] 29.4 pg Normal 24.7-34.3 [facility] Comment on above: Performed By: #### H S TROP, BMP, CBC #### [address] MCV (RBC) [Entitic vol] 88.6 fL Normal 80-100 [facility] Comment on above: Performed By: #### H S TROP, BMP, CBC #### [address] Mean Corpuscular HGB Conc 33.2 g/dL Normal 32.0-35.0 [facility] Comment on above: Performed By: #### H S TROP, BMP, CBC #### [place] [address] [place] Monocytes (Bld) [#/Vol] 0.4 10*3/uL Normal 0.0-0.8 [facility] Comment on above: Performed By: #### H S TROP, BMP, CBC #### [place] [address] [place] Monocytes/100 WBC (Bld) 14.49 % Normal 0.00-20.00 [facility] Comment on above: Performed By: #### H S TROP, BMP, CBC #### [place] [address] [place] Monocytes/100 WBC (Bld) 5.2 % Normal . [facility] Comment on above: Performed By: #### H S TROP, BMP, CBC #### [place] [address] [place] Neutrophils (Bld) [#/Vol] 5.8 10*3/uL Normal 1.8-7.7 [facility] Comment on above: Performed By: #### H S TROP, BMP, CBC #### [address] Neutrophils/100 WBC (Bld) 79.5 % Normal . [facility] Comment on above: Performed By: #### H S TROP, BMP, CBC #### [address] NRBC% 0.1 /100{WBC} Normal 0-0.5 [facility] Comment on above: Performed By: #### H S TROP, BMP, CBC #### [address] Platelet mean volume (Bld) [Entitic vol] 7.9 fL Normal 6.3-10.7 [facility] Comment on above: Performed By: #### H S TROP, BMP, CBC #### [address] Platelets (Bld) [#/Vol] 229 10*3/uL Normal 150-450 [facility] Comment on above: Performed By: #### H S TROP, BMP, CBC #### [address] RBC (Bld) [#/Vol] 4.19 10*6/uL Normal 3.60-5.00 [facility] Comment on above: Performed By: #### H S TROP, BMP, CBC #### [address] WBC (Bld) [#/Vol] 7.3 10*3/uL Normal 3.8-11.6 [facility] Comment on above: Performed By: #### H S TROP, BMP, CBC #### [address] Creatinine and Glomerular fi ltration rate.predicted panel (S/P/Bld)Ordered By: Kaci Morales on 10-17-2022 Creatinine [Mass/Vol] 0.80 mg/dL 0.44-1.03 [facility] Dipstick and Microscopicon 0 10-17-2022 Appearance (U) Cloudy Critically abnormal Clear [facility] Comment on above: Order Comment: Name Collection Type:: Clean-Voided Midstream Performed By: #### A DDONUAPLUS, UHCG, CUU #### [facility] [address] [place] [address] Bacteria,Urine 1+ High None Seen [facility] Comment on above: Order Comment: Name Collection Type:: Clean-Voided Midstream Performed By: #### A DDONUAPLUS, UHCG, CUU #### [facility] [address] [place] [address] [place] Bilirubin,Urine 1+ High Negative [facility] Comment on above: Order Comment: Name Collection Type:: Clean-Voided Midstream Performed By: #### A DDONUAPLUS, UHCG, CUU #### [facility] [address] [place] [address] Calcium Oxalate Crystals,Urine 3+ Normal [facility] Comment on above: Order Comment: Name Collection Type:: Clean-Voided Midstream Performed By: #### A DDONUAPLUS, UHCG, CUU #### [facility] [address] [place] [address] Color (U) Dark Yellow Critically abnormal Yellow [facility] Comment on above: Order Comment: Name Collection Type:: Clean-Voided Midstream Performed By: #### A DDONUAPLUS, UHCG, CUU #### [facility] [address] [place] [address] Glucose Ql (U) Normal Normal Normal [facility] Comment on above: Order Comment: Name Collection Type:: Clean-Voided Midstream Performed By: #### A DDONUAPLUS, UHCG, CUU #### [facility] [address] [place] [address] [place] Hyaline Casts,Urine None Seen Normal 0-1 [facility] Comment on above: Order Comment: Name Collection Type:: Clean-Voided Midstream Performed By: #### A DDONUAPLUS, UHCG, CUU #### [facility] [address] [place] [address] [place] Ketones Ql (U) 1+ High Negative [facility] Comment on above: Order Comment: Name Collection Type:: Clean-Voided Midstream Performed By: #### A DDONUAPLUS, UHCG, CUU #### [facility] [address] [place] [address] Leukocyte esterase Test strip Ql (U) 2+ High Negative [facility] Comment on above: Order Comment: Name Collection Type:: Clean-Voided Midstream Performed By: #### A DDONUAPLUS, UHCG, CUU #### [facility] [address] [place] [address] Nitrite,Urine Negative Normal Negative [facility] Comment on above: Order Comment: Name Collection Type:: Clean-Voided Midstream Performed By: #### A DDONUAPLUS, UHCG, CUU #### [facility] [address] [place] [address] Occult Blood,Urine 3+ High Negative [facility] Comment on above: Order Comment: Name Collection Type:: Clean-Voided Midstream Performed By: #### A DDONUAPLUS, UHCG, CUU #### [facility] [address] [place] [address] Othe Crystals,Urine None Seen Normal [facility] Comment on above: Order Comment: Name Collection Type:: Clean-Voided Midstream Performed By: #### A DDONUAPLUS, UHCG, CUU #### [facility] [address] [place] [address] Other Casts,Urine None Seen Normal None Seen [facility] Comment on above: Order Comment: Name Collection Type:: Clean-Voided Midstream Performed By: #### A DDONUAPLUS, UHCG, CUU #### [facility] [address] [place] [address] [place] pH (U) 5.0 [pH] Normal 5.0-9.0 [facility] Comment on above: Order Comment: Name Collection Type:: Clean-Voided Midstream Performed By: #### A DDONUAPLUS, UHCG, CUU #### [address] Protein (U) [Mass/Vol] 100 mg/dL High Negative [facility] Comment on above: Order Comment: Name Collection Type:: Clean-Voided Midstream Performed By: #### A DDONUAPLUS, UHCG, CUU #### [address] RBC,Urine 20-49 High 0-4 [facility] Comment on above: Order Comment: Name Collection Type:: Clean-Voided Midstream Performed By: #### A DDONUAPLUS, UHCG, CUU #### [address] Specificy [place],Urine 1.035 High 1.001-1.030 [facility] Comment on above: Order Comment: Name Collection Type:: Clean-Voided Midstream Performed By: #### A DDONUAPLUS, UHCG, CUU #### [address] Squamous Epithelial Cell,Urine 5-9 High 0-2 [facility] Comment on above: Order Comment: Name Collection Type:: Clean-Voided Midstream Performed By: #### A DDONUAPLUS, UHCG, CUU #### [address] Urobilinogen,Urine Normal Normal Normal [facility] Comment on above: Order Comment: Name Collection Type:: Clean-Voided Midstream Performed By: #### A DDONUAPLUS, UHCG, CUU #### [address] WBC,Urine 20-49 High 0-4 [facility] Comment on above: Order Comment: Name Collection Type:: Clean-Voided Midstream Performed By: #### A DDONUAPLUS, UHCG, CUU #### [address] Drug Screen,Urineon 10-17-19 23 Amphetamine Screen,Urine Negative Normal Negative [facility] Comment on above: Performed By: #### U RDS #### [place] [address] [place] Barbiturate Screen,Urine Negative Normal Negative [facility] Comment on above: Performed By: #### U RDS #### [place] [address] [place] Benzodiazepines Screen,Urine Negative Normal Negative [facility] Comment on above: Performed By: #### U RDS #### [place] [address] [place] Cannabinoid Screen,Urine Positive High Negative [facility] Comment on above: Result Comment: Thes e are unconfirmed results and should not be used for legal purposes. Drug Cut-Off Concentration: AMPH 1000 ng/mL JERRY 200 ng/mL BOBBI 200 ng/mL COCM 300 ng/mL OP 300 ng/mL PCP 25 ng/mL THC 20 ng/mL PERFORMED BY: [place] [address] PATHOLOGIST SPEECH CORRECTION ASSISTANT ZEB BASURTO M.D. Performed By: #### U RDS #### [place] [address] [place] Cocaine Screen,Urine Negative Normal Negative [facility] Comment on above: Performed By: #### U RDS #### [place] [address] [place] Opiate Screen,Urine Negative Normal Negative [facility] Comment on above: Performed By: #### U RDS #### [place] [address] [place] Phencyclidine Screen,Urine Negative Normal Negative [facility] Comment on above: Performed By: #### U RDS #### [place] [address] [place] ECG 12 lead ECGon 10-17-2022 ECG 12 lead ECG [facility] [address] [place] [address] [place] [address] Electrocardiograph Report Signed Patient: Jenny Scott MR#: [id number] [id number] : 2000 Acct:[id number] Age/Sex: 21 / F ADM Date: 10/17/22 Loc: ER Room: Type: [facility] ER Attending Dr: Ordering Provider: Kaci Morales [...] Rightward axis Confirmed by Hai DUFFY DO ([id number]) on 10/17/2022 6:46:54 PM Referred By: Electronically Signed By:Hai DUFFY DO Transcribed By: MUS Signed By Hai Duffy DO 0 10/17/22 1846 Normal [facility] Eosinophils Auto (Bld) [#/Vo l]Ordered By: Kaci Morales on 10-17-2022 Eosinophils (Bld) [#/Vol] 0.0 10*3/uL 0.0-0.45 [facility] Eosinophils/100 WBC Auto (Bl d)Ordered By: Kaci Morales on 10-17-2022 Eosinophils/100 WBC (Bld) 0.4 % . [facility] Erythrocyte distribution wid th Auto (RBC) [Ratio]Ordered By: Kaci Morales on 10-17-2022 Erythrocyte distribution width (RBC) [Ratio] 13.0 % 11.9-15.3 [facility] Estimated glomerular filtrat ion rate (GFR) non- AmericanOrdered By: Kaci Morales on 10-17-2022 GFR/1.73 sq M.predicted among non-blacks MDRD (S/P/Bld) [Vol rate/Area] > 60 mL/Min [facility] HCG ( test) IA.rapi d Ql (U)Ordered By: Kaci Morales on 10-17-2022 HCG ( test) Ql (U) Negative [facility] HCG,Urineon 10-17-2022 Beta HCG ( test) Ql (U) Negative Normal [facility] Comment on above: Order Comment: Name Collection Type:: Clean-Voided Midstream Result Comment: PERF ORMED BY: [facility] [address] [place] [address] PATHOLOGIST SPEECH CORRECTION ASSISTANT ZEB BASURTO M.D. Performed By: #### A [facility], [facility] #### [facility] [address] Hematocrit Auto (Bld) [Volum e fraction]Ordered By: Kaci Morales on 10-17-2022 Hematocrit (Bld) [Volume fraction] 37.2 % 34.0-46.4 [facility] Hemoglobin [Mass/volume] in BloodOrdered By: Kaci Morales on 10-17-2022 Hemoglobin (Bld) [Mass/Vol] 12.4 g/dL 11.8-15.4 [facility] Ketones Auto test strip (U) [Mass/Vol]Ordered By: Kaci Morales on 10-17-2022 Ketones (U) [Mass/Vol] 1+ Negative [facility] Laboratory - Drug toxicology Ordered By: Kaci Morales on 10-17-2022 Opiates Ql (U) Negative Negative [facility] Leukocytes [#/volume] correc marv for nucleated erythrocytes in Blood by Automated counOrdered By: Kaci Morales on 10-17-2022 WBC corrected for nucl RBC Auto (Bld) [#/Vol] 7.3 10*3/uL 3.8-11.6 [facility] Lymphocytes Auto (Bld) [#/Vo l]Ordered By: Kaci Morales on 10-17-2022 Lymphocytes (Bld) [#/Vol] 1.1 10*3/uL 1.00-4.8 [facility] Lymphocytes/100 WBC Auto (Bl d)Ordered By: Kaci Morales on 10-17-2022 Lymphocytes/100 WBC (Bld) 14.5 % . [facility] MCH Auto (RBC) [Entitic mass ]Ordered By: Kaci Morales on 10-17-2022 MCH (RBC) [Entitic mass] 29.4 pg 24.7-34.3 [facility] MCHC Auto (RBC) [Mass/Vol]Or dered By: Kaci Morales on 10-17-2022 MCHC (RBC) [Mass/Vol] 33.2 g/dL 32.0-35.0 [facility] MCV Auto (RBC) [Entitic vol] Ordered By: Kaci Morales on 10-17-2022 MCV (RBC) [Entitic vol] 88.6 fL 80-100 [facility] Monocyte distribution width [Entitic volume] in Blood by AutomatedOrdered By: Kaci Morales on 10-17-2022 Monocyte distribution width Auto (Bld) [Entitic vol] 14.49 % 0.00-20.00 [facility] Monocytes Auto (Bld) [#/Vol] Ordered By: Kaci Morales on 10-17-2022 Monocytes (Bld) [#/Vol] 0.4 10*3/uL 0.0-0.8 [facility] Monocytes/100 WBC Auto (Bld) Ordered By: Kaci Morales on 10-17-2022 Monocytes/100 WBC (Bld) 5.2 % . [facility] Neutrophils Auto (Bld) [#/Vo l]Ordered By: Kaci Morales on 10-17-2022 Neutrophils (Bld) [#/Vol] 5.8 10*3/uL 1.8-7.7 [facility] Neutrophils/100 WBC Auto (Bl d)Ordered By: Kaci Morales on 10-17-2022 Neutrophils/100 WBC (Bld) 79.5 % . [facility] Nitrite Test strip Ql (U)Ord ered By: Kaci Morales on 10-17-2022 Nitrite Ql (U) Negative Negative [facility] No Panel InformationOrdered By: Kaci Morales on 10-17-2022 Estimated GFR () > 60 mL/Min [facility] Comment on above: GFR estimated refere nce range: According to KDOQI guidelines, <60 ml/min/1.73m2 is sufficient to diagnose a patient with chronic kidney disease. Pharmacy Creatinine Clearance (Chem 87.98 [facility] Nucleated erythrocytes [Pres ence] in Blood by Automated countOrdered By: Kaci Morales on 10-17-2022 Nucleated RBC Auto Ql (Bld) 0.1 /100{WBC} 0-0.5 [facility] Phencyclidine Screen Ql (U)O rdered By: Kaci Morales on 10-17-2022 Phencyclidine Ql (U) Negative Negative [facility] Platelet mean volume Auto (B ld) [Entitic vol]Ordered By: Kaci Morales on 10-17-2022 Platelet mean volume (Bld) [Entitic vol] 7.9 fL 6.3-10.7 [facility] Platelets Auto (Bld) [#/Vol] Ordered By: Kaci Morales on 10-17-2022 Platelets (Bld) [#/Vol] 229 10*3/uL 150-450 [facility] Protein Auto test strip (U) [Mass/Vol]Ordered By: Kaci Morales on 10-17-2022 Protein (U) [Mass/Vol] 100 mg/dL Negative [facility] RBC Auto (Bld) [#/Vol]Ordere d By: Kaci Morales on 10-17-2022 RBC (Bld) [#/Vol] 4.19 10*6/uL 3.60-5.00 [facility] Serum or plasma anion gap de terminationOrdered By: Kcai Morales on 10-17-2022 Anion gap [Moles/Vol] 13.2 mmol/L 6.0-15.0 [facility] Serum or plasma calcium jesus urement (mass/volume)Ordered By: Kaci Morales on 10-17-2022 Calcium [Mass/Vol] 9.5 mg/dL 8.2-10.2 [facility] Serum or plasma chloride iam surement (moles/volume)Ordered By: Kaci Morales on 10-17-2022 Chloride [Moles/Vol] 103 mmol/L 95-114 [facility] Serum or plasma glucose jesus urement (mass/volume)Ordered By: Kaci Morales on 10-17-2022 Glucose [Mass/Vol] 118 mg/dL 70-100 [facility] Comment on above: ADA recommended refe rence rangeRandom Glucose Reference Range is dependent on time and content of last meal. Glucose of more than 200 mg/dL in a nonstressed, ambulatory subject supports the diagnosis of Diabetes Mellitus. Serum or plasma potassium me asurement (moles/volume)Ordered By: Kaci Morales on 10-17-2022 Potassium [Moles/Vol] 3.7 mmol/L 3.5-5.1 [facility] Serum or plasma sodium measu rement (moles/volume)Ordered By: Kaci Morales on 10-17-2022 Sodium [Moles/Vol] 138 mmol/L 136-146 [facility] Serum or plasma total carbon dioxide measurement (moles/volume)Ordered By: [facility] 10-17-2022 CO2 [Moles/Vol] 25.5 mmol/L 22.0-30.0 [facility] Serum or plasma urea nitroge n measurement (mass/volume)Ordered By: Kaci [facility] on 10-17-2022 Urea nitrogen [Mass/Vol] 10 mg/dL 9-23 [facility] Specific gravity Auto test s trip (U) [Rel density]Ordered By: [facility] 10-[facility]20[facility] Specific gravity (U) [Rel density] 1.035 1.001-1.030 [facility] Squamous epithelial cells de tection in urine sediment by light microscopyOrdered By: Kacikellie Morales on 10-17-2022 Epithelial cells.squamous LM Ql (Urine sed) 5-9 [HPF] 0-2 [facility] Troponin I High Sensitivityo n 10-17-2022 Troponin I High Sensitivity < 3 Normal 0-15 [facility] Comment on above: Result Comment: PERF ORMED BY: [place] [address] PATHOLOGIST SPEECH CORRECTION ASSISTANT ZEB BASURTO M.D. Performed By: #### H S TROP, BMP, CBC #### [address] Troponin I.cardiac [Mass/vol ume] in Serum or Plasma by High sensitivity methodOrdered By: Kaci Morales on 10-17-2022 Troponin I.cardiac High sensitivity method [Mass/Vol] < 3 pg/mL 0-15 [facility] Urine Cultureon 10-17-2022 Bacteria identified Cx Nom (U) 75,000 colonies/ml mixed bacterial skin contaminants 2 Days PERFORMED BY: [place] [address] PATHOLOGIST SPEECH CORRECTION ASSISTANT ZEB BASURTO M.D. Normal [facility] Comment on above: Performed By: #### A DDONUAPLUS, UHCG, CUU #### [address] Urine bacteria detection by automated methodOrdered By: Kaci Morales on 10-17-2022 Bacteria Auto Ql (U) 1+ None Seen [facility] Urine clarity by refractomet ry automatedOrdered By: Kaci Morales on 10-17-2022 Clarity Refractometry automated (U) Cloudy Clear [facility] Urine cocaine detectionOrder ed By: Kaci Morales on 10-17-2022 Cocaine Ql (U) Negative Negative [facility] Urine glucose measurement by automated test strip (mass/volume)Ordered By: Kaci Morales on 10-17-2022 Glucose Auto test strip (U) [Mass/Vol] Normal mg/dL Normal [facility] Urine hemoglobin detection b y automated test stripOrdered By: Kaci Morales on 10-17-2022 Hemoglobin Auto test strip Ql (U) 3+ Negative [facility] Urine leukocyte esterase det ection by automated test stripOrdered By: Kaci Morales on 10-17-2022 Leukocyte esterase Auto test strip Ql (U) 2+ Negative [facility] Urine sediment crystal ident ification by light microscopyOrdered By: Kaci Morales on 10-17-2022 Crystals LM Nom (Urine sed) None seen [HPF] [facility] Urobilinogen Auto test strip (U) [Mass/Vol]Ordered By: Kaci Morales on 10-17-2022 Urobilinogen (U) [Mass/Vol] Normal mg/dL Normal [facility] WBC Auto (Bld) [#/Vol]Ordere d By: Kaci Morales on 10-17-2022 WBC (Bld) [#/Vol] 7.3 10*3/uL 3.8-11.6 [facility] XR chest 1V portableon 10-17 XR chest 1V portable [facility] [place] [address] [place] [id number] XRay Report Signed Patient: Jenny Scott MR#: [id number] 949 : 2000 Acct:[id number] Age/Sex: 21 / F ADM Date: 10/17/22 [...] Maricruz Vick M.D.10/17/2022 4:47 PM Dictation Location: [place] [address] Transcribed By: [facility] 10/17/22 1647 Dictated By: Maricruz Vick MD 10/17/22 164 Signed By: 10/17/22 164 [facility] pH Auto test strip (U)Ordere d By: Kaci Morales on 10-17-2022 pH (U) 5.0 [pH] 5.0-9.0 [facility] Provider Letter FTon 05-31 [place] [facility] [place] JENNY SCOTT [address] [place] [id number] JENNY SCOTT 2000 To Whom It May Concern, Please excuse above patient from work 05/28/2022. Dr. Sal Downs MD General Surgery [facility] Provider Letteron 05-17-2022 Provider Letter May 17, 2022 TYLER JENNY S [facility] [address] [phone] JENNY SCOTT [place] 2000 Dear Jenny, We have been trying to reach you with no success. It is important that you return our call regarding your referral from Dr. Ham upon receiving this letter. Also, at the time of your call, please provide us with your current information. Thank you for your prompt attention to this matter. Sincerely, General Surgery [phone] [facility] Physician Referralon 022 Physician Referral [phone] [id number] [facility] 2018 Novel Coronavirus (CoVI D-19), EMELYN LCon 02-10-2022 SARS-CoV-2 (COVID-19) RNA EMELYN+probe Ql (Unsp spec) Not detected Invalid Interpretation Code Not Detected [facility] Comment on above: Order Comment: [id number] # [phone] Result Comment: This nucleic acid amplification test was developed and its performance characteristics determined by [employer]. Nucleic acid amplification tests include RT- PCR [...] detected) result in this assay. Performed At: [address] [id number] Sanjuanita Hernández PhD Ph:[phone] Performed By: #### 6 [id number] #### [place] [address] Coding Summaryon 02-10-2022 Coding Summary HTMLBase 64 DwuveqnxYVm4hEx+PGh lYWQ+JH4BFFLnY49gfN PivZ2RZ3jQPR2ABLAYK JGXOH7CVD9gjFQ2ZHgl R5YxmvVh CxciaACuAE31RWo7FRZ 6wTmtDXmxrH0prMJuZ4 c0OdAbIO87yG72EKhuP FOnHgZ2WvDzhopogEOa J3qaFaDbiSCzBcu+PHR hYmxlIHdpZHRoPScxMD MhFbTspTyfSE7kPi7hZ GVyLWNvbGxhcHNlOiBj j0ueYWMeBGuzMM5vhYb fZ7ZbbCH1FUUaa4e8Ua 48dHI+AOZdJCS8gDloB Ybyn177SxUgy9mxZKV5 oZPcOKlzNWY7U93rq4D 2IMQlUBOeRHG7cYV1jI 8ztNgyldiyV0VgeDLjQ iX1UVB3dWPzdB0iiHvn qjuwwA2xKwj+J01PEF8 MCKWXYM9YNwc3D1LmHp wvdHI+GP11IOCnGY14d IJzkPGdn5hvwUa6KvRj ZNJvITW9jCjwQAnle4H yPCIcB72hfLOgk4Y1CX ShlLdlzFReBvVgqGI0y D4cMPatznrou1aputkh Dizzj8qjjz26gW72F21 fCEhnTMQtURV4OGYdAN IbvOkwwi6oyL8kIq6+I Ikvw2wfj4cazMs5SdYq DFCqwyVptSpmAJX8c1V kRf21N0EjsQdpx5TtUv k4ih94hCPnm1E0pNU1D KzhBRSvzZ5lHAwtOeO0 KJYvGgTyrR91yXTzNVc zNb1hqKykeFdnDH9aHO EmjwbiYDVbfE0jKRXdc TThcPsjCU0yIKCxxeod q506ZiCoQSO1UXSvbRE qY5BbiU1qQyRvARPeUT OpG2PqgNQfZUxtM670G SkcWvR1SKAlrhCnW0Sp BFOiaDdcZiB7e4C0Sk5 Pz3MwukhuPOX6MVhhYN J7RcFdNpAkEsZ8W0OgW ac9RXDkwCraUK8pF5Ij ESOjkfwhvautcJC2LWZ lGGOgcY61tAVcUEtrCo 4ga3C3r491KJHzRYFlh Z84Wf7nyMxvIWBkiKQN yF8lxfmzq9iubscqXjR yRLIuFPq1MZu7OATvxT rgDqAuJEI4GsW6DZO9o NTfaC3owQybdivjrD9s Oyc+M90ynJ4xSUI3JBI 8vglzNPZtifIwDA52HM 42B5DtDmngfVGumQW+P PFeidOsgOluTG8cKsGz u9mud1KgATpfT7DpBVZ fXPbmJaa5RYFaYHV2kQ D1eS6kZSIiRXyvk9V8e SG8T8KiyfNxqi5wk5gc XJWiWDzhD25kiWBwk5U 0TBBkdMW7VFPpxMujKp OauY48Fyk+PGNvbGdyb 6CdQsgzo9lvm3rrzPn4 IjMwJSIgdmFsaWduPSJ 5j6OwGy33J57oVVehDN RoPSIxNSUiIHZhbGlnb v8cbO8cVx2+PGNvbCB3 dKL0pG5dUNUoJtM4MVz lR044IsEevYExUcwpo3 xxo0epbFp4GzQgAXEqj nVdsVbzNUE9k6GcYi40 E88iHVwoNCTeMNWqHNJ bWXTbcFgqny4vvI5cEs 8+GR2lq5rauf04fI85g HI+ABLzHJH3oAgnUKph FXCsbN4zURrxDsD9ODJ lBhXaqO45vELgUOigYb 6pqRrmfKblHL4mVAGsc plnb507AgGqx3cvBGJe yVKyVTpvFSO8A40gj8H 8MEXuMOLoKUR0jXB6sB 1hbGlnbjogbGVmdDsgd mRbyNmfQIqiYSqcA011 IHRvcDsnPlBhdGllbnQ zMqNpFHg9M1IrOzr1AZ NiuSbyQH6lvMXpGXopK w0vaIqwrQaaRI0mBOTj wzvhm560FsIit4ycTMG xrJJkARnoZRZ8R41un9 B1KAFvBGRqENT6qHW4p B2bjUnmdlrvaRIhmSsq kfOxpDtnPGrhCGmeD29 6IHRvcDsnPkJpcnRoIE NbjVM5MU28OV40aXWum 5L5zVS6Q8IsLGQladqk vxgrgYT2LCRxGWFqyW2 8Nj6byEerEs0nEVXxEZ L8ERSwbLYhF7VukH9qE gJdBHQjAXTzL2OflQOs HQwtG722VQxxJeR8FLS oaxNcM6YoYNQeuNkgUi Z8r6X1Cg2JX1T4JR95T B28mGXqm0V5aGQ8Y6Vp ARYiwjbplgepaHS3ALP jFFZmkP50Fh8ihHtdOz 2jBHUmQDZ2XCQnqSFvA 9FwxW8lInFuJCQtFXIc Q6UtgBJeIJnvD295LOd nNrM9GIJvvhYwI9KtTP DyjQtxKhB5a1O9Fl5UD Gz8AB37SJ62sHGaa2Z5 cKT2U2OrOSJgxjcnyqg hgOK4NLBoJLVnyY33Vy 5fxKpfPn9xYEReTSV4S RTdiWJcN0DtaW5mZvCy TICrOMVcO9KssKXzLKq uQ909KXolZzZ8HGRwxg YwJ7RkRZHvaKvcJlA9n 8D0Pj0YIUMhNK44JFT1 yPV8BN99HY11N4OzMrt vdGFibGU+PHRhYmxlIH dpZHRoPScxMDAlJyBzd MnkWR7qDc3yVVKdTTRi gCcxsGGeMjZef5gpRUT qEWybBY0ahOgnC6UxxD N4PTGbi0l8Ol85M65sF 3JvdXA+KWMzoSO2yXJ4 iU7rJxDeKjB1TKewI22 6IeZthKCaVuxqz7hlu6 kwjUr2QbY7VECqmuOll TlmIBU6x4AyHl66Y13p IHdpZHRoPSIxNSUiIHZ vjLknkq2kzP7ePb3+PG WixYQ8jFX4uJ8kCyEpF tQ9ZVsnQ670HoAckSUn Gcwwu9suu0ocbCl7ZiM cVLEohzSuhIzfDQH2u6 WeXl78S7PtbFxzd7RyL is9rk80qBMnl6A8pKH2 W5IwDFMiviahiEOsvQg rTT0uAEWcwaedKASmjD 2wJIQiB1h1AfAlRjF6X VwlN6XywyO5BIKxdKFl JXcaUQV0C95te2S9IMK nKKLaQJT6gZX2aZ8fiT lnbjogbGVmdDsgdmVyd FbvQVgfRBakO586OGOs yGefFFTpmN5eVJEhdAD gkAqmCT6bMJGztgoqGi eMFApNKudaNZzDU5UPF FNVRTwvdGQ+PHRkIHN0 dGxdGAtkXAJihH3eYVI bP8n1WsJvWmO4XZyoO6 AeUDHrxkndFe90kA9wJ qLlJrB6CGnxH8NxdjR8 SGOvdGXlMTkvAWH1E64 mw6I7CGPsLVEkAHW1yP Q9yI4svXevicmffTXbi DsgdmVydGljYWwtYWxp Q942OZNxdHgwGtAwKpL 8ZcFjQXU2C6QnZbt6JN PmaSrnAG4fkAElVOsxU c0bdXvzzTluJB3lMGQl rvoxDROllL3sWCCwrSA doEwxRY0wHWSbcrsog2 69EhFwXSY7ZIItfLYdS 6KgoD5oFeMvRQPmVGCf T3YuyJRoZFusN005OOk bInI4AOWrquEiM3PtHK GwkAqpWxD4q9X8Qr6zK SBZZWFyczwvdGQ+PHRk MRU2iZjzRArcMBWuzO3 sLRVnE3g2JtQqBrS0YT uqV8PfDGYoahhmEi09j F3kMuSlAsS4TFnsH2Fs hnL6FMJxgKIsIBwwZAI 6P17fe0K5DJCwWCAtAU X0qLA6gD1wmWgogvvex GVmdDsgdmVydGljYWwt NLghW708JMVcbHdbAgL FTUFMRTwvdGQ+PHRkIH H1dHfwIJxhLNDdjS8mT BOwA5p3OmOkIhJ9NAba Q6VbFWXiopmjHu87mG9 jCzEmXoN8CTkmC8Dnhh B1QCIkyIJmALpvGJZ5X 18el7N1IUNlIVMaHOX0 mNJ7yH2jsKymxwpjkBY mdDsgdmVydGljYWwtYW wxD420KANkbFvwKf1BT Y54QE77Q5PxFyiixMJb bGU+PHRhYmxlIHdpZHR oPScxMDAlJyBzdHlsZT 1tCl9eCOPbYFNrxLung CZbEzEmo0lrYYEdOMsu OW4pbJmyK9FeaNR7AAI bg4u5Ti14C25oA3MufJ A+TCHelNU7oPC1bW3jW pAeBgJ3NCcpF939BkKr jCBpJrqij2yix5vhkUf 9IjMwJSIgdmFsaWduPS R6v8VcNo98Z76qQCvtX HRoPSIyMCUiIHZhbGln wg1tfP6aCs7+PGNvbCB 5nLB6cG9fRvDvFcF6BO fiX837CxFclECmMftkX 03oA0BtmJW+PHRyPjx0 DZZpxRfsDF6eqYWbVZv aUg4qUWJ1RkQbJkOrDJ kjL7IiAQDllyhxmyhor QS6VUYrAYSmsA27If7x uXkbAw7oNKAnRAM5RZB nrKUaD3PswP6cBgXeOQ XeGDAfB9AoeFBkLVnzL 297HTcuBfO9XHKlwcTy D0QtUAQjrDmmKaI3g3M 2Wy8DuDizuOAyNP9wBv EtVCp2A5QnEse3KZBuy XtlSR6peSMsDKjiLu5z nHgdmTtdET0iOMKykxw ow542ZtNzd3ysIUQcjH XqFZhdEOQ4Z94zw3F4J ERyLFOqYKO1lIB1zZ5v bGlnbjogbGVmdDsgdmV liOtwIHzyENsiU026ZF KnxYzwUyTIRzy3K7GeN ki9CNMmaSraBL4uyBXh GVwjIk5kdOourLotGX5 lLIMjnbbpg206EaHeu1 bzYTZpgAJaIZqsSNP1P 19pl5J5KMPzTTGgYVB7 uPH7qI9hpWpycqxhwDA mdDsgdmVydGljYWwtYW vyN274WBNolQhqWt5UB be5S9BeEug6HSZhnTea YT8mnYDsCXksYh3mxJz nuPhkVG5vEJFnpuicz0 54NmQrh7jkLEYmrDWlY PruRGF1T60hq3C7RYLi EJLjXPG9qLG3jP8cgJq nbjogbGVmdDsgdmVydG dhEBtuMTnhM567NWJqm DsnPlBheWVyOjwvdGQ+ KF20yp11R6DjLfgoVbz 2FNXyQQC5uMV7eU4dCM IcQUvrq0Z0cER7R3Tid sAyvs4fa0yvAIUjHZtf Y29 (more content not included)... Normal [facility] ED Clinical Summaryon 2021 ED Clinical Summary [facility] ? Urgent Care [address] [place] [address] Clinical Summary PERSON INFORMATION Name: JENNY SCOTT Age: 21 Years Sex: FEMALE : 2000 MRN: Acct#: Visit Reason: UC - Headache; HEADACHE, NAUSEA Arrival: 02/07/2022 17:42:14 Discharge: 02/07/2022 19:03:00 LOS: 000 01:21 Check In: 02/07/2022 17:42:14 Checkout: 02/07/2022 19:03:00 Address: [address] [place] [address] PCP: Toña Pierre MD PROVIDER INFORMATION Provider Role Assigned Unassigned Cedric Hemphill ED PA 02/07/2022 17:46:36 Salena Ochoa CUSTOMER DEVELOPMENT MANAGER Nurse 02/07/2022 17:46:51 VITALS INFORMATION Vital Sign [...] What to Do If You Are Sick- [facility] (11/25/2020); Viral Respiratory Infection Follow-Up: With: Address: When: Toña Pierre [address] [place] [address], [facility] [place] [address] Business (1) Within 2 to [...] per current recommendations and guidelines from the [facility] Medical Board [facility]. -Push fluids to stay hydrated. -Use Tylenol [...] else to drop your groceries off and picker/puller your medications. I would recommend that person [...] URI with cough Patient Understands: Yes - Patient/family/critical care unit nurse verbalizes understanding of instructions given Comment: Normal [facility] ED Patient Summaryon 022 ED Patient Summary [facility] ? Urgent Care [address] [place] [address] PATIENT DISCHARGE INSTRUCTIONS Patient Information Name: JENNY SCOTT Age: 21 Years Date of : 2000 Reason For Visit: UC - Headache; HEADACHE, NAUSEA Arrival Time: 02/07/2022 17:42:14 Primary Care Physician: Toña Pierre MD Attending Physician: Cedric Hemphill Comment: Patient Education With: Address: When: Toña Pierre [address] [place] [address], [place] [address] Business (1) Within 2 to [...] per current recommendations and guidelines from the [facility]. -Push fluids to stay hydrated. -Use Tylenol [...] else to drop your groceries off and picker/puller your medications. I would recommend that person [...] yourself. Get rest and stay hydrated. Take nklh-suf-bpvttpc medicines, such as acetaminophen, to help you feel better. ? Stay in touch with your doctor. Call before you get medical care. Be sure to get care if (more content not included)... [facility] Influenza A&B Rapidon 2021 Influenza A Negative Normal [facility] Comment on above: Performed By: #### 1 [id number] #### [facility] (DEFAULT) [address] [place] [address] Influenza B Negative [facility] Comment on above: Performed By: #### 1 [id number] #### [facility] (DEFAULT) [address] [place] [address] Internal QC OK? Pass Normal [facility] Comment on above: Performed By: #### 1 [id number] #### [facility] (DEFAULT) [address] [place] [address] Progress Note - Nurseon 01-11 Progress Note - Nurse Patient provided with fluids [Electronically Signed on: 02/07/2022 18:30 EDT] __ Salena Ochoa RN [Verified on: 02/07/2022 18:30 EDT] __ Salena Ochoa RN [facility] UA w Culture if Ind Standard on 02-07-2022 Breakpoint UA [facility] Comment on above: Performed By: #### 1 [id number] #### [facility] (DEFAULT) [address] [place] [address] Color (U) Yellow [facility] Comment on above: Performed By: #### 1 [id number] #### [facility] (DEFAULT) [address] [place] [address] Culture? Not Indicated Invalid Interpretation Code [facility] Comment on above: Result Comment: Resu lt created by rule GL_MAGR_ADD_UA_CULT1 Performed By: #### 1 [id number] #### [facility] (DEFAULT) [address] [place] [address] Glucose (U) [Mass/Vol] Negative Normal [facility] Comment on above: Performed By: #### 1 [id number] #### [facility] (DEFAULT) [address] [place] [address] Ketones Ql (U) 40 Normal [facility] Comment on above: Performed By: #### 1 [id number] #### [facility] (DEFAULT) [address] [place] [address] Micro? Not Indicated Invalid Interpretation Code [facility] Comment on above: Result Comment: Resu lt created by rule GL_MAGR_ADD_UA_MICRO Performed By: #### 1 [id number] #### [facility] (DEFAULT) [address] [place] [address] UA Bilirubin SMALL Abnormal [facility] Comment on above: Performed By: #### 1 [id number] #### [facility] (DEFAULT) [address] [place] [address] UA Blood Negative Normal NEGATIVE [facility] Comment on above: Performed By: #### 1 [id number] #### [facility] (DEFAULT) [address] [place] [address] UA Clarity CLEAR Normal CLEAR [facility] Comment on above: Performed By: #### 1 [id number] #### [facility] (DEFAULT) [address] [place] [address] UA Leuk Est Negative Normal NEGATIVE [facility] Comment on above: Performed By: #### 1 [id number] #### [facility] (DEFAULT) [address] [place] [address] UA Nitrite Negative Normal NEGATIVE [facility] Comment on above: Performed By: #### 1 [id number] #### [facility] (DEFAULT) [address] [place] [address] UA pH 6.5 Normal 5-8 [facility] Comment on above: Performed By: #### 1 [id number] #### [facility] (DEFAULT) [address] [place] [address] UA Protein Negative Normal NEGATIVE [facility] Comment on above: Performed By: #### 1 [id number] #### [facility] (DEFAULT) [address] [place] [address] UA Spec Grav >=1.030 Normal 1.001-1.035 [facility] Comment on above: Performed By: #### 1 [id number] #### [facility] (DEFAULT) [address] [place] [address] UA Urobilinogen 1.0 mg/dL Normal 0.2-1.0 [facility] Comment on above: Performed By: #### 1 [id number] #### [facility] (DEFAULT) [address] [place] [address] Urine Source Clean Catch Normal [facility] Comment on above: Performed By: #### 1 [id number] #### [facility] (DEFAULT) [address] [place] [address] Urgent Care Note- Provideron 02-07-2022 Urgent Care [...] nose, decreased energy, fatigue, sore throat. Hosted libertarian last night and drank 1 shot and 1 beer. Only drank 1 glass of water today. Ate McDouble and Bahamian fries at 5:30pm. + influenza exposure 4 days ago. ALL: None Meds: Midodrine 5mg TID. PMH: Neurocardiogenic syncope, leaky valve of heart Social: Called off work today from [employer]. Worked 02/04, 02/05, 02/06. Marijuana daily. Review [...] headache, dark urine, nausea. She had a libertarian last night and did drink alcohol. 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 May return [...] 18:01 E (more content not included)... Normal [facility] Urgent Care [place] 022 Urgent Care Record [facility] ? Urgent Care [address] [place] [address] PATIENT DISCHARGE INSTRUCTIONS Patient Information Name: JENNY SCOTT Age: 21 Years Date of : 2000 Reason For Visit: UC - Headache; HEADACHE, NAUSEA Arrival Time: 02/07/2022 17:42:14 Primary Care Physician: Toña Pierre MD Attending Physician: Cedric Hemphill Comment: Visit Diagnosis: Diagnoses This Visit Aching headache (R51.9) Mild dehydration (E86.0) Tachycardia (R00.0) UC - Headache ([id number]) Viral URI with cough (J06.9) If you [...] legal documents With: Address: When: Toña Ignacio [address] [place], [place] [id number] Business (1) Within 2 to 4 days [...] per current recommendations and guidelines from the [facility] Medical Board [facility]. -Push fluids to stay hydrated. -Use Tylenol [...] else to drop your groceries off and picker/puller your medications. I would recommend that person [...] and treatment you received today in the [facility] were for an urgent problem and are not intended as complete care. It is important for you to follow up with a doctor, nurse practitioner, or physician?s curatorial assistant for ongoing care. If your symptoms become worse or you do not improve as expected and you are unable to reach your usual health ca (more content not included)... Normal [facility] CHLAMYDIA/GONOCOCCUS EMELYN (SW AB/URINE/PAPon 12-11-2021 Chlamydia trachomatis, EMELYN Negative Normal Negative [facility] Comment on above: Performed By: #### C T/NGNA #### [facility] [address] [place] [address] Dr. Soraya Tavarez Neisseria gonorrhoeae, EMELYN Negative Normal Negative [facility] Comment on above: Performed By: #### C T/NGNA #### [facility] [address] [place] [address] Dr. Soraya Tavarez VAGINITIS/VAGINOSIS DNA PROB Jon 12-10-2021 Elvia species Negative Normal Negative [facility] Comment on above: Performed By: #### V AGINT #### [facility] [address] [place] [address] Dr. Soraya Tavarez Gardnerella vaginalis Negative Normal Negative [facility] Comment on above: Performed By: #### V AGINT #### [facility] [address] [place] [address] Dr. Soraya Tavarez Trichomonas vaginalis Negative Normal Negative [facility] Comment on above: Performed By: #### V AGINT #### [facility] [address] [place] [address] Dr. Soraya Tavarez US PELVIS TRANSVAGon 022 [...] by: CLARY LOYD Date: 2021-12-08 14:57 Normal [facility] CORTISOLon 10-22-2020 CORTISOL 11.0 mcg/dL Normal [facility] Comment on above: Result Comment: Refe rence Range: AM 6.0-23.0 mcg/dL PM 0.0-9.0 mcg/dL Performed By: #### 3 [id number] #### [facility] [address] [place] [id number] Thyroglobulin Ab Qn [IU]/mL Normal 0.0-4.0 [facility] Comment on above: Result Comment: INTE RPRETIVE INFORMATION: Thyroglobulin Antibody A value of 4.0 IU/mL or less indicates a negative result for thyroglobulin antibodies. The Thyroglobulin Antibody assay is being performed using the Tristin Reql[employer] Access DxI method. Performed By: [facility] [address] [place] [address] Fur Floor Worker: Kassy Pickens MD TPO ANTIBODY [id number] TPO ANTIBODY 0.3 IU/mL Normal 0.0-9.0 [facility] Comment on above: Result Comment: Perf ormed By: [facility] [address] [place] [address] Fur Floor Worker: Kassy Pickens MD TSH RECEPTOR [place] [id number] TSH RECEPTOR AB <0.90 Normal <=1.75 [facility] Comment on above: Result Comment: Perf ormed By: [facility] [address] [place], [place] [id number] Fur Floor Worker: Kassy Pickens MD Vital Signs Date Time Vital Sign Value Performing Clinician Facility 2023 09:32-0500 Body mass index (BMI) [Ratio] 24.2 kg/m2 Elsipadmini Sue DO Work Phone: [facility] 2023 09:32-0500 Body weight 63.96 kg Elsi Linette DO Work Phone: [facility] 2023 09:32-0500 Diastolic blood pressure 70 mm[Hg] Elsi Linette DO Work Phone: [facility] 2023 09:32-0500 Systolic blood pressure 110 mm[Hg] Elsi Linette DO Work Phone: [facility] 10-04-2023 09:45-0500 Body height 162.56 cm Toña Pierre Other [facility] Other 10-04-2023 09:45-0500 Body mass index (BMI) [Ratio] 23.51 kg/m2 Toña Pierre Other [facility] Other 10-04-2023 09:45-0500 Body temperature 97.8 [degF] Toña Pierre Other [facility] Other 10-04-2023 09:45-0500 Body weight 62.14 kg Toña Pierre Other [facility] Other 10-04-2023 09:45-0500 Diastolic blood pressure 80 mm[Hg] Toña Pierre Other [facility] Other 10-04-2023 09:45-0500 SaO2% (BldA) [Mass fraction] 98 % Toña Pierre Other [facility] Other 10-04-2023 09:45-0500 Systolic blood pressure 108 mm[Hg] Toña Pierre Other [facility] Other 09-18-2023 13:08-0500 Body height 162.6 cm Arlette Mustafa MD Work Phone: [facility] 09-18-2023 13:08-0500 Body mass index (BMI) [Ratio] 23.79 kg/m2 Arlette Mustafa MD Work Phone: [employer] 09-18-2023 13:08-0500 Body weight 62.87 kg Arlette Mustafa MD Work Phone: [facility] 09-18-2023 13:08-0500 Diastolic blood pressure 64 mm[Hg] Arlette Mustafa MD Work Phone: [facility] [employer] 09-18-2023 13:08-0500 Heart rate 89 /min Arlette Mustafa MD Work Phone: [facility] 09-18-2023 13:08-0500 Systolic blood pressure 109 mm[Hg] Arlette Mustafa MD Work Phone: [facility] [employer] 07-22-2023 10:10-0500 Body height 162.56 cm Tiesha Juliana Other [facility] Other 07-22-2023 10:10-0500 Body mass index (BMI) [Ratio] 20.94 kg/m2 Tiesha Pittsmond Other [facility] Other 07-22-2023 10:10-0500 Body temperature 98.1 [degF] Tiesha Pittsmond Other [facility] Other 07-22-2023 10:10-0500 Body weight 55.34 kg Tiesha Pittsmond Other [facility] Other 07-22-2023 10:10-0500 Respiratory rate 18 /min Tiesha Juliana Other [facility] Other 07-22-2023 10:10-0500 SaO2% (BldA) [Mass fraction] 98 % Tiesha Juliana Other [facility] Other 05-09-2023 14:30-0400 Body height 162.56 cm Toña Pierre Other [facility] Other 05-09-2023 14:30-0400 Body mass index (BMI) [Ratio] 17.64 kg/m2 Toña Pierre Other [facility] Other 05-09-2023 14:30-0400 Body weight 46.63 kg Toña Pierre Other [facility] Other 05-09-2023 14:30-0400 Diastolic blood pressure 64 mm[Hg] Toña Pierre Other [facility] Other 05-09-2023 14:30-0400 Systolic blood pressure 104 mm[Hg] Toña Pierre Other [facility] Other 10-21-2022 12:30-0500 Body height 162.56 cm Toña Pierre Other [facility] Other 10-21-2022 12:30-0500 Body mass index (BMI) [Ratio] 18.71 kg/m2 Toña Pierre Other [facility] Other 10-21-2022 12:30-0500 Body weight 49.44 kg Toña Pierre Other [facility] Other 10-21-2022 12:30-0500 Diastolic blood pressure 60 mm[Hg] Toña Pierre Other [facility] Other 10-21-2022 12:30-0500 SaO2% (BldA) [Mass fraction] 97 % Toña Pierre Other [facility] Other 10-21-2022 12:30-0500 Systolic blood pressure 108 mm[Hg] Toña Pierre Other [facility] [employer] Other 10-17-2022 17:39-0500 Diastolic blood pressure 53 mm[Hg] MD Toña Pierre Work Phone: [facility] 10-17-2022 17:39-0500 Heart rate 95 /min MD Toña Pierre Work Phone: [facility] 10-17-2022 17:39-0500 Respiratory rate 16 /min MD Toña Pierre Work Phone: [facility] 10-17-2022 17:39-0500 SaO2% (BldA) [Mass fraction] 98 % MD Toña Pierre Work Phone: [facility] 10-17-2022 17:39-0500 Systolic blood pressure 102 mm[Hg] MD Toña Pierre Work Phone: [facility] 10-17-2022 15:42-0500 Body height 162.56 cm MD Toña Pierre Work Phone: [facility] 10-17-2022 15:42-0500 Body temperature 97.8 [degF] MD Toña Pierre Work Phone: [facility] 10-17-2022 15:42-0500 Body weight 50.1 kg MD Toña Pierre Work Phone: [facility] 05-31-2022 14:29-0400 Blood Pressure Location Sal DOWNS [facility] [place] 05-31-2022 14:29-0400 Diastolic blood pressure 60 mm[Hg] Sal DOWNS [facility] [place] 05-31-2022 14:29-0400 Heart rate 68 /min Sal DOWNS [facility] [place] 05-31-2022 14:29-0400 Respiratory rate 16 /min Sal DOWNS [facility] [place] 05-31-2022 14:29-0400 Systolic blood pressure 108 mm[Hg] Sal DOWNS [facility] [place] Encounters Encounter Date Encounter Type Care Provider Facility Start: 10-27-2023 End: 10-27-2023 ambulatory TANYA JUAN [facility] Start: 10-27-2023 End: 10-27-2023 Emergency department patient visit CONCHA BEJARANO [facility] Start: 2023 End: 2023 ambulatory ELSI LINETTE Not Available Start: 2023 End: 2023 flow sheet Elsi Linette DO Work Phone: [facility] Comment on above: Third trimester preg mamadou Start: 10-09-2023 End: 10-09-2023 ambulatory STEPHEN FOX Not Available Start: 10-04-2023 End: 10-04-2023 ambulatory Toña Pierre Other [facility] Other Start: 10-04-2023 Office outpatient vi sit 15 minutes Toña Pierre [facility] Start: 09-25-2023 End: 09-25-2023 ambulatory ELSI LINETTE Not Available Start: 09-21-2023 End: 09-21-2023 ambulatory Toña Pierre Other [facility] Other Start: 09-21-2023 Office outpatient vi sit 15 minutes Toña Pierre [facility] Start: 09-18-2023 End: 09-19-2023 ambulatory ELSI R LINETTE [facility] Start: 09-18-2023 End: 09-18-2023 Office outpatient visit 25 minutes Arlette Mustafa MD Work Phone: [facility] Comment on above: Heartburn during pre gnancy in third trimester (Primary Dx); Cardiovascular disease of mother in , antepartum, third trimester; Postural orthostatic tachycardia syndrome; cardiac echogenic focus, antepartum, single or unspecified fetus Start: 08-28-2023 End: 08-28-2023 ambulatory STEHPEN FOX Not Available Start: 07-27-2023 ambulatory MELINAGERSON HAMM [facility] Start: 07-24-2023 End: 07-24-2023 ambulatory STEPHEN FOX Not Available Start: 07-22-2023 End: 07-22-2023 ambulatory Tiesha Pittsmond Other [facility] Other Start: 07-22-2023 Office outpatient vi sit 15 minutes Tiesha Andrews [facility] [place] Start: 05-25-2023 End: 05-25-2023 ambulatory Toña Pierre Other [facility] Other Start: 05-25-2023 Telephone encounter Toña Pierre [facility] Start: 05-09-2023 End: 05-09-2023 ambulatory Toña Pierre Other [facility] Other Start: 05-09-2023 Office outpatient vi sit 15 minutes Toña Pierre [facility] Start: 11-02-2022 End: 11-03-[address] TOÑA PIERRE Facility:[id number] Start: 10-21-2022 End: 10-21-2022 ambulatory Toña Pierre Other [facility] Other Start: 10-21-2022 Office outpatient vi sit 15 minutes Toña Pierre [facility] Start: 10-17-2022 End: 10-17-2022 Emergency department patient visit Kaci Morales Facility:[facility] Start: 10-17-2022 End: 10-17-2022 Emergency department patient visit MD Toña Pierre Work Phone: [facility] Work Phone: Start: 10-04-2022 End: 10-05-[address] CLARY LOYD Facility:[facility]1 Start: 08-16-2022 End: 08-17-[address] CLARY LOYD Facility:[facility] Start: 07-26-2022 End: 07-27-[address] CLARY LOYD Facility:[facility] Start: 07-19-2022 Well child visit Toña Pierre Other [facility] [employer] Other Start: 07-12-2022 End: 07-13-[address] TOÑA PIERRE Facility: Start: 05-31-2022 End: 06-01-2022 ambulatory Elsi SUE Facility: [place] Start: 05-31-2022 End: 05-31-2022 Patient encounter procedure Sal DOWNS General Surgery [facility] Start: 05-02-2022 ambulatory TOÑA PIERRE PROVIDER Facility: [facility] Start: 12-08-2021 End: 12-08-[address] TOÑA PIERRE Facility: Start: 12-08-2021 End: 12-09-[address] ELSI SUE . Facility: Procedures Date Procedure Procedure Detail Performing Clinician Start: 2023 Urnls dip stick/tabl et rgnt non-auto w/o micrscp Elsi Sue DO Work Phone: Start: 07-11-2023 Microscopic observat ion [Identifier] in Cervix by Cyto stain Arlette Mustafa MD Work Phone: Start: 10-17-2022 CT of head without contrast MD Toña Pierre Work Phone: Start: 10-17-2022 Plain chest X-ray MD Maribel Pierre Work Phone: Incision and drainag e of axilla Sal DOWNS Plan of Treatment Date Care Activity Detail Author Start: 07-11-2026 Screening for malignant neoplasm of cervix Pap Smear [facility] [employer] [facility] Start: 09-18-2024 Adult BMI Screening Adult BMI Screen ing [facility] [employer] [facility] Start: 09-18-2024 Tobacco Screening Tobacco Screening [facility] Start: 12-06-2023 End: 12-06-2023 Patient encounter procedure 12/06/2023 10:30 AM EDT [facility] [address] [place] [address] [place] [address] [place] [address], [address], [address] [place] [id number] [facility] Start: 11-13-2023 End: 11-13-2023 Patient encounter procedure 11/13/2023 1:40 PM EST Routine [facility] [address] [place] [id number] Elsi Sue, [address] [place] [address] [place] [address] [facility] Start: 10-16-2023 End: 10-16-2023 Telemedicine consultation with patient 10/16/2023 2:30 PM EST Telemedicine Maternal- Medicine at [address] [phone] Arlette Mustafa MD [address] [place] [address] Maternal- Medicine at [facility] Start: 09-18-2023 End: 09-18-2024 Echo complete W/O contrast Echo complete W/O contrast Echocardiography Routine Cardiovascular disease of mother in , antepartum, third trimester Postural orthostatic tachycardia syndrome cardiac echogenic focus, antepartum, single or unspecified fetus Heartburn during in third trimester Expected: 09/18/2023, Expires: 09/18/2024 [facility] Comment on above: Expected: 09/18/2023 , Expires: 09/18/2024 Start: 05-12-2023 Influenza vaccination Influenza Vacc ine [facility] Start: 10-17-2022 Bacteria identified in Urine by Culture [facility] Start: 2019 DTaP,Tdap and Td Vaccines (1 - Tdap) DTaP,Tdap and Td Vaccines (1 - Tdap) [facility] Start: 2012 Depression Screening Depression Scre ening [facility] End: 09-17-2024 ECG 12 lead ECG 12 lead ECG Routine Cardiovascular disease of mother in , antepartum, third trimester Postural orthostatic tachycardia syndrome cardiac echogenic focus, antepartum, single or unspecified fetus Heartburn during in third trimester 1 Occurrences starting 09/18/2023 until 09/17/2024 [facility] Work Phone: Comment on above: 1 Occurrences starti ng 09/18/2023 until 09/17/2024 Patient Education Head Injury in Adults [facility] Work Phone: Patient referral [facility] Work Phone: Immunizations Immunization Date Immunization Notes Care Provider Luisito spencer 04-09-2019 meningococcal oligosaccharide (groups A, C, Y and W-135) diphtheria toxoid conjugate vaccine (MCV4O) Toña Pirere Other [employer] Other Payers Date Payer Category Payer Medicaid [employer] [place] [id number] 2023-Present [phone] [address] [place] [address] [id number] 2023 Unknown [id number] [id number]. [id number] 2023 Medicaid [id number] [id number] 2022 Self-pay [id number] 2000 Unknown [id number] 2.16.840.1.019069.3.579.2.727 2000 Unknown [id number] 2.16.840.1.832937.3.579.2.593 2000 Unknown [id number] 2.16.840.1.106884.3.579.2.593 2000 Unknown [id number] 2.16.840.1.694804.3.579.2.593 2000 Unknown [id number] 2.16.840.1.433362.3.579.2.593 2000 Unknown [id number] 2.16.840.1.320571.3.579.2.593 2000 Unknown [id number] 2.16.840.1.371533.3.579.2.593 2000 Unknown [id number] 2.16.840.1.928583.3.579.2.593 2000 Unknown [id number] 2.16.840.1.099436.3.579.2.1286 2000 Unknown [id number] 2.16.840.1.709063.3.579.2.1286 2000 Unknown [id number] 2.16.840.1.192177.3.579.2.1259 2000 Unknown [id number] 2.16.840.1.000683.3.579.2.1259 2000 Unknown [id number] 2.16.840.1.614219.3.579.2.1259 2000 Unknown [id number] 2.16.840.1.346300.3.579.2.1259 2000 Unknown [id number] 2.16.840.1.794191.3.579.2.1259 2000 Unknown [id number] 2.16.840.1.968857.3.579.2.1286 2000 Unknown [id number] 2.16.840.1.234174.3.579.2.1286 2000 Unknown [id number] 2.16.840.1.531773.3.579.2.1286 2000 Unknown [id number] 2.16.840.1.350831.3.579.2.128 1979 Unknown [id number] 2.16.840.1.650261.3.579.2.727 1959 Unknown [id number] Unknown [id number] 2.16.840.1.128898.3.579.2.531 Unknown [id number] Social History Date Type Detail Facility Start: 05-31-2022 End: 05-22-2023 Tobacco smoking status Never smoked tobacco (finding) [facility] Tobacco smoking status Never [facility] Start: 05-22-2023 End: 09-18-2023 Sex Assigned At Female [facility] Start: 10-17-2022 Tobacco smoking stat [facility] Smoker (finding) [facility] Start: 2000 Sex Assigned At Female [facility] Start: 05-22-2023 End: 06-16-2023 Tobacco use and exposure Smokeless tobacco non-user [facility] Start: 09-18-2023 End: 2023 Alcohol intake Lifetime non-drinker (finding) [facility] Start: 05-22-2023 End: 09-18-2023 History of Social function [facility] Start: 03-16-2023 [facility] Start: 2000 Sex Assigned At Not on file P [facility] Functional Status Date Assessment Result Facility 05-31-2022 Functional Status N/A [facility] Clinical Notes 02-07-2022 to 2023 Lizette Bautista MA - 2023 9:30 AM EST Note Date & Type Note Facility 2023 History of Presen t illness Narrative Reason for Appointment: Patient ID: Jenny Scott is a 23 y.o. female who presents for Routine Visit Patient presents today for Return OB appointment. Current Medications: has a current medication list which includes the following prescription(s): omeprazole, ondansetron odt, albuterol hfa, famotidine, hydroxyzine hcl, profe, metoclopramide, metoprolol succinate xl, midodrine, ondansetron, pr hilary 400 ec, promethazine, and pyridoxine. Medical History: Active Ambulatory Problems Diagnosis Date Noted No Active Ambulatory Problems Resolved Ambulatory Problems Diagnosis Date Noted No Resolved Ambulatory Problems No Additional Past Medical History No family history on file. Social History Tobacco Use Smoking status: Never Smokeless tobacco: Never Substance Use Topics Alcohol use: Never Drug use: Never No past surgical history on file. Allergies Allergen Reactions Cefdinir Unknown Nitrofurantoin Unknown Review of Systems: Review of Systems Constitutional: Negative. HENT: Negative. Eyes: Negative. Respiratory: Negative. Cardiovascular: Negative. Gastrointestinal: Negative. Musculoskeletal: Negative. Skin: Negative. Neurological: Negative. Psychiatric/Behavioral: Negative. All other systems reviewed and are negative. Hematological: Negative. Endocrine: Negative. Objective Physical Exam Constitutional: Appearance: Normal appearance. She is normal weight. HENT: Head: Normocephalic. Nose: Nose normal. Mouth/Throat: Mouth: Mucous membranes are moist. Cardiovascular: Rate and Rhythm: Normal rate. Pulses: Normal pulses. Pulmonary: Effort: Pulmonary effort is normal. Breath sounds: Normal breath sounds. Abdominal: General: Bowel sounds are normal. Palpations: Abdomen is soft. Musculoskeletal: General: Normal range of motion. Cervical back: Normal range of motion. Neurological: General: No focal deficit present. Mental Status: She is alert and oriented to person, place, and time. Skin: General: Skin is warm and dry. Psychiatric: Mood and Affect: Mood normal. Behavior: Behavior normal. Thought Content: Thought content normal. Judgment: Judgment normal. Vitals and nursing note reviewed. Exam conducted with a agricultural labor camp manager present. Patient presents today for a routine obstetrics appointment. Patient is currently 34w0d . Patient states she is doing well but has complaints of being tired due to current . Patient has verbalizes frequent movement. labor precautions was discussed/given and patient was instructed to perform kick counts three times a day. Follow Up: Patient is to return to office in 2 week for routine OB appointment. Vitals: Estimated body mass index is 24.2 kg/m as calculated from the following: Height as of 01/23/23: 5' 4 . Weight as of this encounter: 141 lb. BP: 110/70 No LMP recorded. Patient is . Assessment/Plan Encounter Diagnosis Name Primary? Third trimester Patient presents today for a routine obstetrics appointment. Patient is currently 34w0d . Patient states she is doing well but has complaints of being tired due to current . Patient has verbalizes frequent movement. labor precautions was discussed/given and patient was instructed to perform kick counts three times a day. Follow Up: Patient is to return to office in 2 week for routine OB appointment. Documented by Lizette Bautista MA on behalf of: Elsi Sue DO documented in this encounter [facility] 10-04-2023 Evaluation note Encounter Date Diagnosis Assessment Notes Sep, Acute non-recurrent maxillary sinusitis (ICD-10 - J01.00) Finish antibiotics WIll notify her OB work note given. [employer] Other 01-11-2024 Evaluation note* Encounter Date Diagnosis Assessment Notes Treatment Notes Treatment Clinical Notes Sep, Viral URI (ICD-10 - J06.9) Ok to stop azithromycin as she likely has a viral infection. Recommend halls and robitussin for cough. Pt requests letter to stay out of hot kitchen at [facility]. Sep, Tachycardia (ICD-10 - R00.0) Advised her to stay hydrated. She doesn't know how or have a smart watch to track her pulse at home. Advised to come in for vitals, discuss w Dr. Sue next week. She will have her mom check her pulse. Noted history of NCS. [facility] Other 01-08-2024 History of Present illness Narrative* Demi Wilder RN - 09/18/2023 2:00 PM EST Headache/epigastric pain/blurry vision/swelling? SOME HEARTBURN. Cramping/contractions? NO Abnormal vaginal discharge? NO Spotting or vaginal bleeding? NO Loss of fluid like your water may have broken? NO Recent ER visits or hospitalizations? NO Any concerns that you would like me to mention to the provider today? NO * Arlette Mustafa MD - 09/18/2023 2:00 PM EST VISIT RECOMMENDATIONS ARE OUTLINED IN BOLD AT [...] Zika virus screening, Covid-19 vaccination counseling, influenza vaccinationcounseling and unrelated Genetic screening (cystic fibrosis, muscular [...] was 32 minutes. 24 minutes were direct weri-qo-tjom for counseling and coordination of care during visits itself. An additional 3 minutes or for same day preparation to see the patient. Another 6 minutes were needed were needed to prepare report and or to perform other duties to complete visit. Thank you for sending this patient. Arlette Mustafa MD Maternal Medicine Professor, [facility] [phone] Office [phone] Personal Cell Phone Office Note: Patient Active [...] had neurocardiogenic syncope. The patient saw a certified physician assistant that recommended EKG and echocardiogram. The problem list indicates a shortened NE interval. The patient is unaware of pre-excitation [...] diagnosis is neurocardiogenic syncope. As noted above, recommendedechocardiogram and EKG apparently not ordered her canceled. [...] wanted the patient to be seen by certified physician assistant. If this diagnosis is not want the [...] effects which may not be congenital malformations assuch from exposure during . Medications should be [...] appears that the midodrine did not significantly improveher symptoms. We reviewed heartburn in . It [...] over the background underlying risk. In patients withisolated finding who otherwise is historically at low risk or by testing at low risk, the actual inc rease in risk usually not considered clinically significant by most. Most recent [facility] guidelines recommend cell free DNA screening as primary choice of testing unless a particular patient desires invasive testing. Any patient can have any choice of testing, but cell free DNA screening recommended.If screening is low risk, the finding is considered as an ultrasound variant. The patient was satisf ied with chromosomal screening results she received. We gave her written information. We did not schedule the patient for follow-up imaging although could attempt. Clinical utility lessens markedly as advances in the 3rd trimester. Comments, conclusions, recommendations: Echogenic cardiac focus finding observed. Structural assessment of fetus unremarkable although incomplete. The patient was satisfied chromosomal screening results. No other follow-up otherwise neededregarding echogenic cardiac focus finding. We did not [...] Tertiary therapy would be for use of Carafate.If used, Carafate should be given 4 times [...] care primary OB provider. [facility] NoteSubjective Jenny Scott is a 22 y.o. 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 Social [...] No Known Allergies Medications Current Outpatient Medications: [id number] 29-1-400 mg combo pack,tablet and cap,DR, Take [...] and other tests EKG 07/17/23: NSR, short NE interval Assessment/Plan Diagnoses and all orders for [...] Ambulatory referral to Cardiac Electrophysiology; Future Shortened NE interval Pre-syncope - Will order an echocardiogram - she has known vasovagal syncope Previously under control with midodrine daily I discussed with Dr. Max, who is our expert on syncope and vasovagal syncope He has used midodrine in patients and believes it is safe He also felt that symptoms should gradually improve in the next few weeks 2. Short NE interval on EKG: Consider event monitor and EP evaluation if having palpit (more content not included)...[facility]11-11-2023 Evaluation note* Encounter Date Diagnosis Assessment Notes Treatment Notes Treatment Clinical Notes Jul, Contact with and (suspected) exposure [...] Robitussin for the cough. 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 Off work tomorrow and Monday, may return to work on Monday. Jul, Sore throat (ICD-10 - J02.9) [facility] Other 08-29-2023 Evaluation note* Encounter Date Diagnosis Assessment Notes Treatment Notes Treatment Clinical Notes Apr, Mild intermittent reactive airway disease without complication (ICD-10 - J45.20) Discussed her symptoms and agreed to HFA prn. Apr, Neurocardiogenic syncope (ICD-10 - R55) Midodrine is catagory C and she has been off of it for a few weeks. Will not refill and notify Dr. Sue. [facility] Other 02-10-2023 Evaluation note* Encounter Date Diagnosis Assessment Notes Treatment Notes Treatment Clinical Notes Oct, Neurocardiogenic syncope (ICD-10 - R55) Increased dose of med. Has been through workup with [facility]. Will refer to Neurology to r/o seizure component. Note given for work. [facility] Other 01-24-2023 NotePROCEDURE: XR TIB_FIB LT 2V HISTORY: Pain in lower limb ; persistent mid lower leg pain; follow-up stress reaction COMPARISON: XR tib-fib left 08/16/2022 FINDINGS: BONES:No fracture, dislocation, or periosteal reaction. SOFT TISSUES:No visible soft tissue swelling. EFFUSION:None visible. OTHER: Negative. IMPRESSION: 1. No suspicious bone abnormality. Electronically authenticated by: CLARY LOYD Date: 2022-10-04 15:34[facility]12-06-2022 NotePROCEDURE: XR TIB_FIB LT 2V, XR ANKLE LT MIN 3 V HISTORY: Pain in lower limb ; follow-up stress reaction of left tibia COMPARISON: XR ankle left 07/26/2022, 07/12/2022 FINDINGS: BONES:No fracture, acute abnormality, or significant arthropathy. SOFT TISSUES:No visible soft tissue swelling. EFFUSION:None visible. OTHER: Negative. IMPRESSION: 1. Normal appearance of left tibia-fibula and ankle. Electronically authenticated by: CLARY LOYD Date: 2022-08-16 09:39[facility]12-06-2022 NotePROCEDURE: XR TIB_FIB LT 2V, XR ANKLE LT MIN 3 V HISTORY: Pain in lower limb ; follow-up stress reaction of left tibia COMPARISON: XR ankle left 07/26/2022, 07/12/2022 FINDINGS: BONES:No fracture, acute abnormality, or significant arthropathy. SOFT TISSUES:No visible soft tissue swelling. EFFUSION:None visible. OTHER: Negative. IMPRESSION: 1. Normal appearance of left tibia-fibula and ankle. Electronically authenticated by: CLARY LOYD Date: 2022-08-16 09:39[facility]11-15-2022 NotePROCEDURE: XR ANKLE LT MIN 3 V HISTORY: Pain of left ankle joint ; follow-up ankle sprain COMPARISON: XR ankle left 07/12/2022 FINDINGS: BONES:No fracture, acute abnormality, or significant arthropathy. SOFT TISSUES:No visible soft tissue swelling. EFFUSION:None visible. OTHER: Negative. IMPRESSION: 1. No acute bone abnormality or appreciable degenerative changes. Electronically authenticated by: CLARY LOYD Date: 2022-07-26 15:21[facility]11-01-2022 NotePROCEDURE: XR ANKLE LT MIN 3 V COMPARISON: None. HISTORY: Injury of left ankle FINDINGS: BONES:No fracture, acute abnormality, or significant arthropathy. SOFT TISSUES:Negative. No visible soft tissue swelling. EFFUSION:None visible. OTHER: Negative. IMPRESSION: No acute disease. Electronically authenticated by: CHERRIE FLORES Date: 2022-07-12 13:06[facility]09-20-2022 NoteChief Complaint consultation for abdominal pain HPI [...] Daily, # 30 cap(s), Refills(s) 3, Pharmacy: [facility], 163.8, cm, 05/31/22 14:35:00 EDT, Height/Length Dosing, 53.6, kg, 05/31/22 14:35:00 EDT, Weight Dosing 2. Marijuana use, continuous (F12.90: Cannabis use, unspecified, uncomplicated) see # 1 Ordered: omeprazole, 20 mg = 1 cap(s), Oral, Daily, # 30 cap(s), Refills(s) 3, Pharmacy: [facility], 163.8, cm, 05/31/22 14:35:00 EDT, Height/Length Dosing, 53.6, kg, 05/31/22 14:35:00 EDT, Weight Dosing 3. Anxiety (F41.9: Anxiety disorder, unspecified) see # 1 Ordered: omeprazole, 20 mg = 1 cap(s), Oral, Daily, # 30 cap(s), Refills(s) 3, Pharmacy: [facility], 163.8, cm, 05/31/22 14:35:00 EDT, Height/Length [...] refills Allergies Macrobid (Vomi (more content not included)...[facility]:Result Comment: Electronically Signed By: VICTORIA FRANK, Sal Cam\Date and Time Signed: 05/31/22 17:28 [id number] NotePatient Education Materials Follows:Disease COVID-19: What to [...] yourself. Get rest and stay hydrated. Take olvv-feb-qfmeeie medicines, such as acetaminophen, to help you [...] to your local emergency facility: Notify the pipe threading machine operator that you are seeking care for [...] household. ? You can visit your state, [place], local, and territorialhealth department's website to look for the latest [...] clean your hands with an alcohol-based hand pizza delivery that contains at least 60% alcohol. Clean your hands often ? Wash your hands often with soap and water for at least 20 seconds. This is especially important after blowing your nose, coughing, or sneezing; going to the bathroom; and before eating (more content not included)...[facility] Evaluation + Plan note No data available for this section [facility] Evaluation noteNo assessment information available [facility] Work Phone: Evaluation noteNo InformationNort Jack Robie Other Evaluation note* Diagnosis Heartburn during in third trimester- Primary Cardiovascular disease of mother in , antepartum, third trimester Postural orthostatic tachycardia syndrome Unspecified tachycardia cardiac echogenic focus, antepartum, single or unspecified fetus [facility] Diagnosis Third trimester state, incidental documented in this encounter [facility] N[facility]ative - Reported* Type Description Date [...] ARM 2016 Hospitalization History SEE SURGICAL HX [facility] Other Hospital Discharge instructions No data available for this section [facility] Discharge instructions Additional Instructions Push fluids Rest Avoid marijuana use Follow-up with your doctor call tomorrow for appointment Return if any problems persist or worsen including chest pain, shortness of breath, numbness, tingling, unilateral weakness or any other concern Take antibiotic as instructed until [facility] Work Phone: InstructionsNot on filedocumented in this encounter [facility] No data available for this section [facility] [place] Summary Purpose Family History No Family History Records FoundNo Family History Records FoundNo Family History Records FoundNo Family History Records FoundNo Family History Records FoundNo Family History Records FoundNo Family History Records FoundNo Family History Records FoundNo Family History Records Found Advance Directives No Advanced Directives Records Found Advance Directive Response Recorded Date/ Time Advance Directives No November 18 6:47pm Chief Complaint and Reason for Visit Chief Complaint Passed out,weak Reason for Referral Specialty Diagnoses / Procedures Referred By Contac t Referred To Contact Diagnoses Cardiovascular disease of mother in , antepartum, third trimester Postural orthostatic tachycardia syndrome cardiac echogenic focus, antepartum, single or unspecified fetus Heartburn during in third trimester Procedures Echo complete W/O contrast Arlette Mustafa MD [address] [place] [address] Referral ID Status Reason Start Date Expiration Date V isits Requested Visits Authorized [id number] Pending Review 09/18/2023 09/17/2024 1 1 Specialty Diagnoses / Procedures Referred By Contac t Referred To Contact Diagnoses Cardiovascular disease of mother in , antepartum, third trimester Postural orthostatic tachycardia syndrome cardiac echogenic focus, antepartum, single or unspecified fetus Heartburn during in third trimester Procedures ECG 12 lead Arlette Mustafa MD [address] [place] [id number] Referral ID Status Reason Start Date Expiration Date V isits Requested Visits Authorized [id number] Pending Review 09/18/2023 09/17/2024 1 1 Reason 11/23/22 Possible seizure - labs and CT at Counts Include [address] [facility]. Diagnosis 1 Neurocardiogenic syn cope (R55) Referral Organization [facility] lucretia Referring Provider First Name Toña Referring Provider Last Name Ignacio Referring Provider Specialty Family [facility] Referred Organization [facility] Referred Provider Avril Irving Referred Address [address] [place], [place] Referred Provider Specialty Neurology Referral Priority Routine [...] and content) DATE CREATED AUTHOR 12/23/2020 [facility] DATE CREATED AUTHOR AUTHOR'S ORGANIZ ATION 02/10/2022 [facility] DATE CREATED AUTHOR AUTHOR'S ORGANIZ ATION 06/11/2022 [facility] DATE CREATED AUTHOR AUTHOR'S ORGANIZ ATION 10/25/2022 [facility] DATE CREATED AUTHOR AUTHOR'S ORGANIZ ATION 11/06/2022 [facility] DATE CREATED AUTHOR AUTHOR'S ORGANIZ ATION 08/17/2023 [facility] DATE CREATED AUTHOR AUTHOR'S ORGANIZ ATION 09/24/2023 [facility] DATE CREATED AUTHOR AUTHOR'S ORGANIZ ATION 10/28/2023 [facility] DATE CREATED AUTHOR AUTHOR'S ORGANIZ ATION 10/29/2023 [facility] Care Team (unrecognized sect ion and content) Team Status: Inactive Member Role Status Dates Toña Pierre MD Primary Care Provider Active Kaci Morales APRN Emergency Provider Active Team Status: Active Member Role Status Dates Toña Pierre MD Primary Care Provider Active Human Resources Vice President Relationship Specialty Start Date End Date Toña Pierre MD [address] [place] [id number] PCP - General Family Medicine 05/04/23 Goals (unrecognized section and content) Goals may be documented in a n alternate section REASON FOR VISIT (unrecogniz ed section and content) Reason Comments Neurocardiogenic Syncope Hypotension Reason Comments Routine Visit FOR RECORDS PERTAINING TO PATIENTS WHO ARE [...] BE BASED ON THE PRIMARY CLINICAL RECORDS. [employer] [facility] provides no warranty or guarantee of the accuracy or completeness of information in this document.
== END 2023-11-13 20:20 | disposition home or self-care (01) ==
LOC: LAB 20:19
PROVIDERS: PCP Family Medicine; Visit Provider Physician Assistant
DX: Z34.93 Encounter for supervision of normal pregnancy, unspecified, third trimester (principal)
CPT/HCPCS: 87081

== ENCOUNTER 2023-11-30 05:21 | Inpatient (IN) | payer BC, OTHER, SELFPAY ==
[2023-11-30] VITALS (80 sets, daily range): BP systolic 102–168; BP diastolic 55–103; PULSE 76–131; RESP 14–20; TEMP 36.4–36.7
--- OUTSIDE RECORDS SUMMARY | 2023-11-30 05:24 | XMS_ITS | CCD ---
Author Organization [facility] Care Team Providers Care Mini Shifter Name Role Phone LIBERTY PIERRE Primary Care Physician IGNACIO PROVIDERLIBERTY Referring Unavailab Sal Cazares Attending Unavailable Wesly SUE Referring Unavailable Sal DOWNS Attending Unavailable MD Liberty Pierre Primary Care Provider [phone] CRISTIN Morales Emergency Provider [phone] Kaci Morales Attending Unavailable Kaci Morales Admitting Unavailable Liberty Pierre Primary Care Unavailable IGNACIO, DR LIBERTY Ye Primary Care Unavailable GLADYS DWYER Attending Unavailable GLADYS DWYER Consulting Unavailable GLADYS DWYER Admitting Unavailable CHERRIE ROOT Consulting Unavailable RACH, DR CLARY Hdez Consulting Unavailable GLADYS DWYER Admitting Unavailable GLADYS DWYER Attending Unavailable IGNACIO, DR LIBERTY Ye Primary Care Unavailable GLADYS DWYER Consulting Unavailable RACH, DR CLARY Hdez Consulting Unavailable GLADYS DWYER Admitting Unavailable GLADYS DWYER Attending Unavailable IGNACIO, DR LIBERTY Ye Primary Care Unavailable GLADYS DWYER Consulting Unavailable RACH, DR CLARY Hdez Consulting Unavailable GLADYS DWYER Admitting Unavailable GLADYS DWYER Attending Unavailable IGNACIO, DR LIBERTY Ye Primary Care Unavailable GLADYS DWYER Consulting Unavailable IGNACIO, DR LIBERTY Ye Admitting Unavailable IGNACIO, DR LIBERTY Ye Attending Unavailable SANDRA, DR CHERRIE Vasquez Consulting Unavailable IGNACIO, DR LIBERTY eY Primary Care Unavailable PIERRE, DR LIBERTY Ye Consulting Unavailable IGNACIO, DR LIBERTY Ye Primary Care Unavailable LINETTE ., DR CALZADA Attending Unavailable LINETTE ., DR CALZADA Consulting Unavailable LINETTE ., DR CALZADA Admitting Unavailable LINETTE ., DR CALZADA Attending Unavailable PIERRE, DR LIBERTY Ye Primary Care Unavailable LINETTE ., DR CALZADA Admitting Unavailable LINETTE ., DR CALZADA Consulting Unavailable ZIEBER, DR CLARY Hdez Consulting Unavailable PIERRE, DR LIBERTY Ye Consulting Unavailable Liberty Pierre Unavailable Tiesha Andrews Unavailable MELINA HAMM Attending Unavailable Unavailable Primary Care Provider UnavailARLETTE Sidhu Attending Unavailable LINETTE, WESLY R Referring Unavailable LINETTE, WESLY R Referring Unavailable Liberty Pierre MD Primary Care Provider TANYA JUAN Admitting Unavailable TANYA JUAN Attending Unavailable DARCI, CONCHA YEBOAH Attending UnavailCONCHA Henderson Referring Unavailabl e LINETTE, WESLY Attending Unavailable STEPHEN FOX Attending Unavailable LINETTE, WESLY Attending Unavailable LINETTE, WESLY Attending Unavailable LINETTE, WESLY Attending Unavailable LINETTE, WESLY Attending Unavailable DOMINIQUESTEPHEN Attending Unavailable DOMINIQUE, STEPHEN Attending Unavailable Allergies Allergy Classification Reported Allergen(s) Allergy Type Date of Onset Reaction(s) Facility (8 sources) cefdinir; Translations: [cefdinir] Drug Allergy Vomiting (disorder) [facility] [place] (8 sources) NITROFURANTOIN, MACROCRYSTALS / Nitrofurantoin, Monohydrate; Translations: [nitrofurantoin] Drug Allergy Vomiting (disorder) [facility] [place] (1 source) Penicillins Drug allergy (disorder) 11-01-19 22 [facility] Repository (5 sources) patient allergy list reviewed by nurse or physicia Propensity to adverse reactions 04-09-20 19 Comment:Done [facility] Other (5 sources) Allergies Reconciled Propensity to adverse reactions 07-26-20 21 Unknown [facility] Other (2 sources) cefdinir Drug Allergy 07-11-20 23 Unknown [facility] Work Phone: (2 sources) Nitrofurantoin Drug Allergy 07-11-20 23 Unknown [facility] Medications Current Medications Medication Drug Class(es) Dates Sig (Normalized) Sig (Original) [id number] 200 actuat albuterol 0.09 mg/actuat metered dose [...] 14, 2020 12:00am take 1 tablet [facility] twelve hours Midodrine HCl 5 [...] Start: 05-31-2022 take 1 capsule by [facility] once daily omeprazole 20 mg Cap-DR 20 mg = 1 cap(s), Oral, Daily, # 30 cap(s), Refills(s) 3, Pharmacy: [facility], 163.8, cm, 05/31/22 14:35:00 EDT, Height/Length [...] 0 09/19/2023 Active take 1 tablet by barden th every eight hours as needed ondansetron [...] morning. 90 capsule 3 09/12/2023 09/11/2024 Active Qsrrki-QpBby-MtSnp-FA-CA- [place] (ND 400 ec) 29-1-200 & 400 MG (DR) misc (2 sources) take 1 tablet by mouth in the morning Txlsgg-KsWap-BkIau-FA-CA -[place] (ND 400 ec) 29-1-200 & 400 MG (DR) [...] disease (1 source) Atherosclerotic heart disease of [place] coronary artery without angina pectoris; Translations: [Atherosclerotic heart disease of [place]ilkoot coronary artery without angina pectoris] Onset: 4 [...] UA Negative Negative - 4(70) +++ mg/dL [facility] Healthcare Blood, UA Negative Negative [...] Urobilinogen, UA 0.2 0.2 - 12 mg/dL [facility] 36on 08-15-2023 36 Msg left on patients phone today regarding telehealth. Normal [facility] Office Visiton 07-27-2023 Follow-up visit [id number] Senthil Scott 2000 F Date Provider Department Center 07/27/2023 289-MELINA HAMM [facility] CARDIO UTCF No family history on file Level of Service:14290 ND OFFICE/OUTPATIENT ESTABLISHED MOD MDM 30-39 MIN () Reason for Visit and Comments: Follow-up [130198] - FLOORWALKER LEAKY VALVE, HYPOTENSION Syncope [506] Normal [facility] COVID Quick Testingon 2022 Result Negative [facility] Other Quick Strepon 07-22-2023 S. pyogenes Org specific cx Ql (Throat) Negative [employer] Other Quick Strep [facility] Other MRI LEG LT WO CONon 11-03-19 [...] CHERRIE ROOT Date: 2022-11-02 23:11 Normal [facility] Amphetamine Screen Ql (U)Ord ered By: Kaci Morales on 10-17-2022 Amphetamines Ql (U) Negative Negative [facility] Automated erythrocytes count in urine sediment (number/area)Ordered By: Kaci Morales on 10-17-2022 RBC Auto (Urine sed) [#/Area] 20-49 [HPF] 0-4 [facility] Automated leukocytes count i n urine sediment (number/area)Ordered By: Kaci Morales on 10-17-2022 WBC Auto (Urine sed) [#/Area] 20-49 [HPF] 0-4 [facility] Automated urine hyaline cast s count (number/volume)Ordered By: Kaci Morales on 10-17-2022 Hyaline casts Auto (U) [#/Vol] None seen [LPF] 0-1 [facility] Automated urine sediment joe cium oxalate crystal count by microscopy (number/high powOrdered By: Kaci Morales on 10-17-2022 Calcium oxalate crystals LM.HPF (Urine sed) [#/Area] 3+ [HPF] [facility] Barbiturates [Presence] in U rineOrdered By: Kaci Morales on 10-17-2022 Barbiturates Ql (U) Negative Negative [facility] Basic Metabolic Panelon Anion gap [Moles/Vol] 13.2 mmol/L Normal 6.0-15.0 [facility] Comment on above: Performed By: #### H S TROP, BMP, CBC #### [facility] [address] [place] [id number] [place] Calcium [Mass/Vol] 9.5 mg/dL Normal 8.2-10.2 [facility] Comment on above: Performed By: #### H S TROP, BMP, CBC #### [facility] [address] [place] [id number] [place] Chloride [Moles/Vol] 103 mmol/L Normal 95-114 [facility] Comment on above: Performed By: #### H S TROP, BMP, CBC #### [facility] [address] [place] [address] CO2 [Moles/Vol] 25.5 mmol/L Normal 22.0-30.0 [facility] Comment on above: Performed By: #### H S TROP, BMP, CBC #### [facility] [address] Creatinine [Mass/Vol] 0.80 mg/dL Normal 0.44-1.03 [facility] Comment on above: Performed By: #### H S TROP, BMP, CBC #### [address] Creatinine Clr Calc Pharmacy 87.98 [facility] Comment on above: Result Comment: PERF ORMED BY: [place] [address] PATHOLOGIST CUSTOMER ACQUISITION SPECIALIST ZEB BASURTO M.D. Performed By: #### H S TROP, BMP, CBC #### [address] Estimated GFR ( Adelita > 60 [facility] Comment on above: Result Comment: GFR estimated reference range: According to KDOQI guidelines, <60 ml/min/1.73m2 is sufficient to diagnose a patient with chronic kidney disease. Performed By: #### H S TROP, BMP, CBC #### [facility] [address] [place] [address] Estimated GFR (Non- Am > 60 [facility] Comment on above: Performed By: #### H S TROP, BMP, CBC #### [facility] [address] [place] [address] Glucose [Mass/Vol] 118 mg/dL High 70-100 [facility] Comment on above: Result Comment: [place] Glucose Reference Range is dependent on time and content of last meal. Glucose of more than 200 mg/dL in a nonstressed, ambulatory subject supports the diagnosis of Diabetes Mellitus. ADA recommended reference range Performed By: #### H S TROP, BMP, CBC #### [facility] [address] [place] [address] [place] Potassium [Moles/Vol] 3.7 mmol/L Normal 3.5-5.1 [facility] Comment on above: Performed By: #### H S TROP, BMP, CBC #### [facility] [address] [place] [address] [place] Sodium [Moles/Vol] 138 mmol/L Normal 136-146 [facility] Comment on above: Performed By: #### H S TROP, BMP, CBC #### [facility] [address] Urea nitrogen [Mass/Vol] 10 mg/dL Normal 9-23 [facility] Comment on above: Performed By: #### H S TROP, BMP, CBC #### [facility] [address] Basophils Auto (Bld) [#/Vol] Ordered By: Kaci Morales on 10-17-2022 Basophils (Bld) [#/Vol] 0.0 10*3/uL 0.0-0.2 [facility] Basophils/100 WBC Auto (Bld) Ordered By: Kaci Morales on 10-17-2022 Basophils/100 WBC (Bld) 0.4 % . [facility] Benzodiazepines [Presence] i n UrineOrdered By: Kaci Morales on 10-17-2022 Benzodiazepines Ql (U) Negative Negative [facility] Bilirubin Test strip Ql (U)O rdered By: Kaci Morales on 10-17-2022 Bilirubin Ql (U) 1+ Negative [facility] CT head/brain wo conon 10-17 CT head/brain wo con [facility] [address] [place] [address] CT Scan Report Signed Patient: Senthil Scott MR#: [id number] : 2000 Acct:[id number] Age/Sex: 21 / F ADM Date: 10/17/22 Loc: ER Room: Type: [facility] ER Attending Dr: Copies to: Kaci Morales [...] Maricruz Vick M.D.10/17/2022 5:07 PM Dictation Location: [place] [address] Transcribed By: [facility] 10/17/221706 Dictated By: Maricruz Vick MD 10/17/221703 Signed By: 10/17/221706 Normal [facility] Cannabinoids [Presence] in U rine by Screen methodOrdered By: Kaci Morales on 10-17-2022 Cannabinoids Screen Ql (U) Positive Negative [facility] Comment on above: These are unconfirme d [...] (Urine sed) None seen [LPF] None Seen [facility] Color Auto (U)Ordered By: Yuriy Morales on 10-17-2022 Color (U) Dark yellow Yellow [facility] Complete Blood Count Auto Di ffon 10-17-2022 Basophils (Bld) [#/Vol] 0.0 10*3/uL Normal 0.0-0.2 [facility] Comment on above: Result Comment: PERF ORMED BY: [place] [address] PATHOLOGIST CUSTOMER ACQUISITION SPECIALIST ZEB BASURTO M.D. Performed By: #### H S TROP, BMP, CBC #### [facility] [address] [place] [address] Basophils/100 WBC (Bld) 0.4 % Normal . [facility] Comment on above: Performed By: #### H S TROP, BMP, CBC #### [address] Eosinophils (Bld) [#/Vol] 0.0 10*3/uL Normal 0.0-0.45 [facility] Comment on above: Performed By: #### H S TROP, BMP, CBC #### [address] Eosinophils/100 WBC (Bld) 0.4 % Normal . [facility] Comment on above: Performed By: #### H S TROP, BMP, CBC #### [address] Erythrocyte distribution width (RBC) [Ratio] 13.0 % Normal 11.9-15.3 [facility] Comment on above: Performed By: #### H S TROP, BMP, CBC #### [address] Hematocrit (Bld) [Volume fraction] 37.2 % Normal 34.0-46.4 [facility] Comment on above: Performed By: #### H S TROP, BMP, CBC #### [facility] [address] [place] [address] [place] Hemoglobin (Bld) [Mass/Vol] 12.4 g/dL Normal 11.8-15.4 [facility] Comment on above: Performed By: #### H S TROP, BMP, CBC #### [facility] [address] [place] [address] Lymphocytes (Bld) [#/Vol] 1.1 10*3/uL Normal 1.00-4.8 [facility] Comment on above: Performed By: #### H S TROP, BMP, CBC #### [facility] [address] [place] [address] [place] Lymphocytes/100 WBC (Bld) 14.5 % Normal . [facility] Comment on above: Performed By: #### H S TROP, BMP, CBC #### [facility] [address] MCH (RBC) [Entitic mass] 29.4 pg Normal 24.7-34.3 [facility] Comment on above: Performed By: #### H S TROP, BMP, CBC #### [address] MCV (RBC) [Entitic vol] 88.6 fL Normal 80-100 [facility] Comment on above: Performed By: #### H S TROP, BMP, CBC #### [address] Mean Corpuscular HGB Conc 33.2 g/dL Normal 32.0-35.0 [facility] Comment on above: Performed By: #### H S TROP, BMP, CBC #### [place] [address] [place] Monocytes (Bld) [#/Vol] 0.4 10*3/uL Normal 0.0-0.8 [facility] Comment on above: Performed By: #### H S TROP, BMP, CBC #### [place] [address] [place] Monocytes/100 WBC (Bld) 14.49 % Normal 0.00-20.00 [facility] Comment on above: Performed By: #### H S TROP, BMP, CBC #### [place] [address] [place] Monocytes/100 WBC (Bld) 5.2 % Normal . [facility] Comment on above: Performed By: #### H S TROP, BMP, CBC #### [place] [address] [place] Neutrophils (Bld) [#/Vol] 5.8 10*3/uL Normal 1.8-7.7 [facility] Comment on above: Performed By: #### H S TROP, BMP, CBC #### [address] Neutrophils/100 WBC (Bld) 79.5 % Normal . [facility] Comment on above: Performed By: #### H S TROP, BMP, CBC #### [address] NRBC% 0.1 /100{WBC} Normal 0-0.5 [facility] Comment on above: Performed By: #### H S TROP, BMP, CBC #### [address] Platelet mean volume (Bld) [Entitic vol] 7.9 fL Normal 6.3-10.7 [facility] Comment on above: Performed By: #### H S TROP, BMP, CBC #### [address] Platelets (Bld) [#/Vol] 229 10*3/uL Normal 150-450 [facility] Comment on above: Performed By: #### H S TROP, BMP, CBC #### [address] RBC (Bld) [#/Vol] 4.19 10*6/uL Normal 3.60-5.00 [facility] Comment on above: Performed By: #### H S TROP, BMP, CBC #### [address] WBC (Bld) [#/Vol] 7.3 10*3/uL Normal 3.8-11.6 [facility] Comment on above: Performed By: #### H S TROP, BMP, CBC #### [address] Creatinine and Glomerular fi ltration rate.predicted panel (S/P/Bld)Ordered By: Kaci Morales on 10-17-2022 Creatinine [Mass/Vol] 0.80 mg/dL 0.44-1.03 [facility] Dipstick and Microscopicon 0 10-17-2022 Appearance (U) Cloudy Critically abnormal Clear [facility] Comment on above: Order Comment: Name Collection Type:: Clean-Voided Midstream Performed By: #### A DDONUAPLUS, UHCG, CUU #### [facility] [address] [place] [address] Bacteria,Urine 1+ High None Seen [facility] Comment on above: Order Comment: Name Collection Type:: Clean-Voided Midstream Performed By: #### A DDONUAPLUS, UHCG, CUU #### [facility] [address] [place] [address] [place] Bilirubin,Urine 1+ High Negative [facility] Comment on above: Order Comment: Name Collection Type:: Clean-Voided Midstream Performed By: #### A DDONUAPLUS, UHCG, CUU #### [facility] [address] [place] [address] Calcium Oxalate Crystals,Urine 3+ Normal [facility] Comment on above: Order Comment: Name Collection Type:: Clean-Voided Midstream Performed By: #### A DDONUAPLUS, UHCG, CUU #### [facility] [address] [place] [address] Color (U) Dark Yellow Critically abnormal Yellow [facility] Comment on above: Order Comment: Name Collection Type:: Clean-Voided Midstream Performed By: #### A DDONUAPLUS, UHCG, CUU #### [facility] [address] [place] [address] Glucose Ql (U) Normal Normal Normal [facility] Comment on above: Order Comment: Name Collection Type:: Clean-Voided Midstream Performed By: #### A DDONUAPLUS, UHCG, CUU #### [facility] [address] [place] [address] [place] Hyaline Casts,Urine None Seen Normal 0-1 [facility] Comment on above: Order Comment: Name Collection Type:: Clean-Voided Midstream Performed By: #### A DDONUAPLUS, UHCG, CUU #### [facility] [address] [place] [address] [place] Ketones Ql (U) 1+ High Negative [facility] Comment on above: Order Comment: Name Collection Type:: Clean-Voided Midstream Performed By: #### A DDONUAPLUS, UHCG, CUU #### [facility] [address] [place] [address] Leukocyte esterase Test strip Ql (U) 2+ High Negative [facility] Comment on above: Order Comment: Name Collection Type:: Clean-Voided Midstream Performed By: #### A DDONUAPLUS, UHCG, CUU #### [facility] [address] [place] [address] Nitrite,Urine Negative Normal Negative [facility] Comment on above: Order Comment: Name Collection Type:: Clean-Voided Midstream Performed By: #### A DDONUAPLUS, UHCG, CUU #### [facility] [address] [place] [address] Occult Blood,Urine 3+ High Negative [facility] Comment on above: Order Comment: Name Collection Type:: Clean-Voided Midstream Performed By: #### A DDONUAPLUS, UHCG, CUU #### [facility] [address] [place] [address] Othe Crystals,Urine None Seen Normal [facility] Comment on above: Order Comment: Name Collection Type:: Clean-Voided Midstream Performed By: #### A DDONUAPLUS, UHCG, CUU #### [facility] [address] [place] [address] Other Casts,Urine None Seen Normal None Seen [facility] Comment on above: Order Comment: Name Collection Type:: Clean-Voided Midstream Performed By: #### A DDONUAPLUS, UHCG, CUU #### [facility] [address] [place] [address] [place] pH (U) 5.0 [pH] Normal 5.0-9.0 [facility] Comment on above: Order Comment: Name Collection Type:: Clean-Voided Midstream Performed By: #### A DDONUAPLUS, UHCG, CUU #### [address] Protein (U) [Mass/Vol] 100 mg/dL High Negative [facility] Comment on above: Order Comment: Name Collection Type:: Clean-Voided Midstream Performed By: #### A DDONUAPLUS, UHCG, CUU #### [address] RBC,Urine 20-49 High 0-4 [facility] Comment on above: Order Comment: Name Collection Type:: Clean-Voided Midstream Performed By: #### A DDONUAPLUS, UHCG, CUU #### [address] Specificy [place],Urine 1.035 High 1.001-1.030 [facility] Comment on above: Order Comment: Name Collection Type:: Clean-Voided Midstream Performed By: #### A DDONUAPLUS, UHCG, CUU #### [address] Squamous Epithelial Cell,Urine 5-9 High 0-2 [facility] Comment on above: Order Comment: Name Collection Type:: Clean-Voided Midstream Performed By: #### A DDONUAPLUS, UHCG, CUU #### [address] Urobilinogen,Urine Normal Normal Normal [facility] Comment on above: Order Comment: Name Collection Type:: Clean-Voided Midstream Performed By: #### A DDONUAPLUS, UHCG, CUU #### [address] WBC,Urine 20-49 High 0-4 [facility] Comment on above: Order Comment: Name Collection Type:: Clean-Voided Midstream Performed By: #### A DDONUAPLUS, UHCG, CUU #### [address] Drug Screen,Urineon 10-17-19 23 Amphetamine Screen,Urine Negative Normal Negative [facility] Comment on above: Performed By: #### U RDS #### [place] [address] [place] Barbiturate Screen,Urine Negative Normal Negative [facility] Comment on above: Performed By: #### U RDS #### [place] [address] [place] Benzodiazepines Screen,Urine Negative Normal Negative [facility] Comment on above: Performed By: #### U RDS #### [place] [address] [place] Cannabinoid Screen,Urine Positive High Negative [facility] Comment on above: Result Comment: Thes e are unconfirmed results and should not be used for legal purposes. Drug Cut-Off Concentration: AMPH 1000 ng/mL JERRY 200 ng/mL BOBBI 200 ng/mL COCM 300 ng/mL OP 300 ng/mL PCP 25 ng/mL THC 20 ng/mL PERFORMED BY: [place] [address] PATHOLOGIST CUSTOMER ACQUISITION SPECIALIST ZEB BASURTO M.D. Performed By: #### U RDS #### [place] [address] [place] Cocaine Screen,Urine Negative Normal Negative [facility] Comment on above: Performed By: #### U RDS #### [place] [address] [place] Opiate Screen,Urine Negative Normal Negative [facility] Comment on above: Performed By: #### U RDS #### [place] [address] [place] Phencyclidine Screen,Urine Negative Normal Negative [facility] Comment on above: Performed By: #### U RDS #### [place] [address] [place] ECG 12 lead ECGon 10-17-2022 ECG 12 lead ECG [facility] [address] [place] [address] Electrocardiograph Report Signed Patient: Senthil Scott MR#: [id number] : 2000 Acct:[id number] Age/Sex: 21 / F ADM Date: 10/17/22 Loc: ER Room: Type: [facility] ER Attending Dr: Ordering Provider: Kaci Morales [...] Rightward axis Confirmed by Hai DUFFY DO ([id number]) on 10/17/2022 6:46:54 PM Referred By: Electronically Signed By:Hai DUFFY DO Transcribed By: MUS Signed By Hai Duffy DO 0 10/17/22 1846 Normal [facility] Eosinophils Auto (Bld) [#/Vo l]Ordered By: Kaci Morales on 10-17-2022 Eosinophils (Bld) [#/Vol] 0.0 10*3/uL 0.0-0.45 [facility] Eosinophils/100 WBC Auto (Bl d)Ordered By: Kaci Morales on 10-17-2022 Eosinophils/100 WBC (Bld) 0.4 % . [facility] Erythrocyte distribution wid th Auto (RBC) [Ratio]Ordered By: Kaci Morales on 10-17-2022 Erythrocyte distribution width (RBC) [Ratio] 13.0 % 11.9-15.3 [facility] Estimated glomerular filtrat ion rate (GFR) non- AmericanOrdered By: Kaci Morales on 10-17-2022 GFR/1.73 sq M.predicted among non-blacks MDRD (S/P/Bld) [Vol rate/Area] > 60 mL/Min [facility] HCG ( test) IA.rapi d Ql (U)Ordered By: Kaci Morales on 10-17-2022 HCG ( test) Ql (U) Negative [facility] HCG,Urineon 10-17-2022 Beta HCG ( test) Ql (U) Negative Normal [facility] Comment on above: Order Comment: Name Collection Type:: Clean-Voided Midstream Result Comment: PERF ORMED BY: [facility] [address] [place] [address] PATHOLOGIST CUSTOMER ACQUISITION SPECIALIST ZEB BASURTO M.D. Performed By: #### A JESUS, [facility], CUU #### [facility] [address] Hematocrit Auto (Bld) [Volum e fraction]Ordered By: Kaci Morales on 10-17-2022 Hematocrit (Bld) [Volume fraction] 37.2 % 34.0-46.4 [facility] Hemoglobin [Mass/volume] in BloodOrdered By: Kaci Morales on 10-17-2022 Hemoglobin (Bld) [Mass/Vol] 12.4 g/dL 11.8-15.4 [facility] Ketones Auto test strip (U) [Mass/Vol]Ordered By: Kaci Morales on 10-17-2022 Ketones (U) [Mass/Vol] 1+ Negative [facility] - Drug toxicology Ordered By: Kaci Morales on 10-17-2022 Opiates Ql (U) Negative Negative [facility] Leukocytes [#/volume] correc marv for nucleated erythrocytes in Blood by Automated counOrdered By: Kaci Morales on 10-17-2022 WBC corrected for nucl RBC Auto (Bld) [#/Vol] 7.3 10*3/uL 3.8-11.6 [facility] Lymphocytes Auto (Bld) [#/Vo l]Ordered By: Kaci Morales on 10-17-2022 Lymphocytes (Bld) [#/Vol] 1.1 10*3/uL 1.00-4.8 [facility] Lymphocytes/100 WBC Auto (Bl d)Ordered By: Kaci Morales on 10-17-2022 Lymphocytes/100 WBC (Bld) 14.5 % . [facility] MCH Auto (RBC) [Entitic mass ]Ordered By: Kaci Morales on 10-17-2022 MCH (RBC) [Entitic mass] 29.4 pg 24.7-34.3 [facility] MCHC Auto (RBC) [Mass/Vol]Or dered By: Kaci Morales on 10-17-2022 MCHC (RBC) [Mass/Vol] 33.2 g/dL 32.0-35.0 [facility] MCV Auto (RBC) [Entitic vol] Ordered By: Kaci Morales on 10-17-2022 MCV (RBC) [Entitic vol] 88.6 fL 80-100 [facility] Monocyte distribution width [Entitic volume] in Blood by AutomatedOrdered By: Kaci Morales on 10-17-2022 Monocyte distribution width Auto (Bld) [Entitic vol] 14.49 % 0.00-20.00 [facility] Monocytes Auto (Bld) [#/Vol] Ordered By: Kaci Morales on 10-17-2022 Monocytes (Bld) [#/Vol] 0.4 10*3/uL 0.0-0.8 [facility] Monocytes/100 WBC Auto (Bld) Ordered By: Kaci Morales on 10-17-2022 Monocytes/100 WBC (Bld) 5.2 % . F [facility] Neutrophils Auto (Bld) [#/Vo l]Ordered By: Kaci Morales on 10-17-2022 Neutrophils (Bld) [#/Vol] 5.8 10*3/uL 1.8-7.7 [facility] Neutrophils/100 WBC Auto (Bl d)Ordered By: Kaci Morales on 10-17-2022 Neutrophils/100 WBC (Bld) 79.5 % . [facility] Nitrite Test strip Ql (U)Ord ered By: Kaci Morales on 10-17-2022 Nitrite Ql (U) Negative Negative [facility] No Panel InformationOrdered By: Kaci Morales on 10-17-2022 Estimated GFR () > 60 mL/Min [facility] Comment on above: GFR estimated refere nce range: According to KDOQI guidelines, <60 ml/min/1.73m2 is sufficient to diagnose a patient with chronic kidney disease. Pharmacy Creatinine Clearance (Chem 87.98 [facility] Nucleated erythrocytes [Pres ence] in Blood by Automated countOrdered By: Kaci Morales on 10-17-2022 Nucleated RBC Auto Ql (Bld) 0.1 /100{WBC} 0-0.5 [facility] Phencyclidine Screen Ql (U)O rdered By: Kaci Morales on 10-17-2022 Phencyclidine Ql (U) Negative Negative [facility] Platelet mean volume Auto (B ld) [Entitic vol]Ordered By: Kaci Morales on 10-17-2022 Platelet mean volume (Bld) [Entitic vol] 7.9 fL 6.3-10.7 [facility] Platelets Auto (Bld) [#/Vol] Ordered By: Kaci Morales on 10-17-2022 Platelets (Bld) [#/Vol] 229 10*3/uL 150-450 [facility] Protein Auto test strip (U) [Mass/Vol]Ordered By: Kaci Morales on 10-17-2022 Protein (U) [Mass/Vol] 100 mg/dL Negative [facility] RBC Auto (Bld) [#/Vol]Ordere d By: Kaci Morales on 10-17-2022 RBC (Bld) [#/Vol] 4.19 10*6/uL 3.60-5.00 [facility] Serum or plasma anion gap de terminationOrdered By: Kaci Morales on 10-17-2022 Anion gap [Moles/Vol] 13.2 mmol/L 6.0-15.0 [facility] Serum or plasma calcium jesus urement (mass/volume)Ordered By: Kaci Morales on 10-17-2022 Calcium [Mass/Vol] 9.5 mg/dL 8.2-10.2 [facility] Serum or plasma chloride iam surement (moles/volume)Ordered By: Kaci Morales on 10-17-2022 Chloride [Moles/Vol] 103 mmol/L 95-114 [facility] Serum or plasma glucose jesus urement (mass/volume)Ordered By: Kaci Morales on 10-17-2022 Glucose [Mass/Vol] 118 mg/dL 70-100 [facility] Comment on above: ADA recommended refe rence rangeRandom Glucose Reference Range is dependent on time and content of last meal. Glucose of more than 200 mg/dL in a nonstressed, ambulatory subject supports the diagnosis of Diabetes Mellitus. Serum or plasma potassium me asurement (moles/volume)Ordered By: Kaci Morales on 10-17-2022 Potassium [Moles/Vol] 3.7 mmol/L 3.5-5.1 [facility] Serum or plasma sodium measu rement (moles/volume)Ordered By: Kaci Morales on 10-17-2022 Sodium [Moles/Vol] 138 mmol/L 136-146 [facility] Serum or plasma total carbon dioxide measurement (moles/volume)Ordered By: Kaci [facility] on 10-17-2022 CO2 [Moles/Vol] 25.5 mmol/L 22.0-30.0 [facility] Serum or plasma urea nitroge n measurement (mass/volume)Ordered By: Kaci [facility] on 10-17-2022 Urea nitrogen [Mass/Vol] 10 mg/dL 9-23 [facility] Specific gravity Auto test s trip (U) [Rel density]Ordered By: [facility] 10-17-2022 Specific gravity (U) [Rel density] 1.035 1.001-1.030 [facility] Squamous epithelial cells de tection in urine sediment by light microscopyOrdered By: Kacikellie Morales on 10-17-2022 Epithelial cells.squamous LM Ql (Urine sed) 5-9 [HPF] 0-2 [facility] Troponin I High Sensitivityo n 10-17-2022 Troponin I High Sensitivity < 3 Normal 0-15 [facility] Comment on above: Result Comment: PERF ORMED BY: [place] [address] PATHOLOGIST CUSTOMER ACQUISITION SPECIALIST ZEB BASURTO M.D. Performed By: #### H S TROP, BMP, CBC #### [address] Troponin I.cardiac [Mass/vol ume] in Serum or Plasma by High sensitivity methodOrdered By: Kaci Morales on 10-17-2022 Troponin I.cardiac High sensitivity method [Mass/Vol] < 3 pg/mL 0-15 [facility] Urine Cultureon 10-17-2022 Bacteria identified Cx Nom (U) 75,000 colonies/ml mixed bacterial skin contaminants 2 Days PERFORMED BY: [place] [address] PATHOLOGIST CUSTOMER ACQUISITION SPECIALIST ZEB BASURTO M.D. Normal [facility] Comment on above: Performed By: #### A DDONUAPLUS, UHCG, CUU #### [address] Urine bacteria detection by automated methodOrdered By: Kaci Morales on 10-17-2022 Bacteria Auto Ql (U) 1+ None Seen [facility] Urine clarity by refractomet ry automatedOrdered By: Kaci Morales on 10-17-2022 Clarity Refractometry automated (U) Cloudy Clear [facility] Urine cocaine detectionOrder ed By: Kaci Morales on 10-17-2022 Cocaine Ql (U) Negative Negative [facility] Urine glucose measurement by automated test strip (mass/volume)Ordered By: Kaci Morales on 10-17-2022 Glucose Auto test strip (U) [Mass/Vol] Normal mg/dL Normal [facility] Urine hemoglobin detection b y automated test stripOrdered By: Kaci Morales on 10-17-2022 Hemoglobin Auto test strip Ql (U) 3+ Negative [facility] Urine leukocyte esterase det ection by automated test stripOrdered By: Kaci Morales on 10-17-2022 Leukocyte esterase Auto test strip Ql (U) 2+ Negative [facility] Urine sediment crystal ident ification by light microscopyOrdered By: Kaci Morales on 10-17-2022 Crystals LM Nom (Urine sed) None seen [HPF] [facility] Urobilinogen Auto test strip (U) [Mass/Vol]Ordered By: Kaci Morales on 10-17-2022 Urobilinogen (U) [Mass/Vol] Normal mg/dL Normal [facility] WBC Auto (Bld) [#/Vol]Ordere d By: Kaci Morales on 10-17-2022 WBC (Bld) [#/Vol] 7.3 10*3/uL 3.8-11.6 [facility] XR chest 1V portableon 10-17 XR chest 1V portable [facility] [address] [place] [address] [place] [id number] XRay Report Signed Patient: Senthil Scott MR#: [id number] 949 : 2000 Acct:[id number] Age/Sex: 21 / F ADM Date: 10/17/22 [...] Maricruz Vick M.D.10/17/2022 4:47 PM Dictation Location: [place] [address] Transcribed By: [facility] 10/17/22 1647 Dictated By: Maricruz iVck MD 10/17/22 164 Signed By: 10/17/22 164 [facility] pH Auto test strip (U)Ordere d By: Kaci Morales on 10-17-2022 pH (U) 5.0 [pH] 5.0-9.0 [facility] Provider Letter FTon 05-31 Provider Letter [facility] [place] 31, 2022 SENTHIL SCOTT [address] [place] [phone] SENTHIL SCOTT 2000 To Whom It May Concern, Please excuse above patient from work 05/28/2022. Dr. Sal Downs MD General Surgery [facility] Provider Letteron 05-17-2022 Provider Letter May 17, 2022 TYLER SENTHIL S [facility] [phone] SENTHIL SCOTT [place] 2000 Dear Senthil, We have been trying to reach you with no success. It is important that you return our call regarding your referral from Dr. Ham upon receiving this letter. Also, at the time of your call, please provide us with your current information. Thank you for your prompt attention to this matter. Sincerely, General Surgery [phone] [facility] Physician Referralon 022 Physician Referral [phone] [id number] [facility] 2018 Novel Coronavirus (CoVI D-19), EMELYN LCon 02-10-2022 SARS-CoV-2 (COVID-19) RNA EMELYN+probe Ql (Unsp spec) Not detected Invalid Interpretation Code Not Detected [facility] Comment on above: Order Comment: [id number] 1 # [phone] Result Comment: This nucleic acid amplification test was developed and its performance characteristics determined by [facility]. Nucleic acid amplification tests include RT- PCR [...] detected) result in this assay. Performed At: [address] [id number] Sanjuanita Hernández PhD Ph:[phone] Performed By: #### 6 [id number] #### [place] [address] Coding Summaryon 02-10-2022 Coding Summary [employer] 64 TstfashaDZj6cJg+PGh lYWQ+LJ6JCSPrR65pcW CnmS4TP9bSYJ8XDCHMC FNXYZ5QRN1cdHG4WRzt T3KtweZb RemzzEIiNW22BUb3LET 2uOqaTDmreH4epLMxK8 u0RyKiYB39rV45WMwfY ZUqVmD6EwCtqiulrLXw C6knFrWbrCFhGzi+PHR hYmxlIHdpZHRoPScxMD HgXmDpvIqbYP8jCn0vN GVyLWNvbGxhcHNlOiBj z4esNFMtAUopMK7fbYi fV1XihEC6ZGMtx0r8Iy 48dHI+HBLjSCH4uPqrT Beuf991XwXrv7djKTU3 hUGlNGzaRJD3B36sk9G 9MUSuWYSjXWY7uHX3wM 6xdOvpximfI1UttHOfF cF3WPW9eUJcaE2zbTnd pbfwvS4oTdn+L64JWC1 PJYDZFL1TKaz2M5CfOo wvdHI+CK16QXNgFT24p DJkkCRba1aukQj4ZoJu ZHGuPTM3hKtxNVkje5B qXBToP38anFYyy8B7NJ ZraEiioVGlUxOcqFF1s Z3kBQdzgysgm2fotnvl Plwyc8arml34oR49U39 tEJubLFYyGHU7UFCoGQ ByhUtwpo9drR4dMq2+I Emiw3ebi8pjoOi9KtCq MAZwbcEmdIsnNUV6f7V cXt66Y8LanSzva2LwNn o3ph84pTIbh2Y7gCL9O GooGWZlqI3uYGkkSmT5 CAJaPtFcnI20eEAvKVa vHi5vyUxozYclSP9fZK KcyclaLYIykO6rOMBwr ABpyMenTQ1hZJNdluue h744NqBsHXU5LJMfwBL yE1GhhC3dNhJvNIZiHA QyD9BwvJWoOCdjA315A JksXxW4LHJqmlDdZ5Vn BTWwdOqhRlA8p2A0Zb9 Dv2LagzsvOVP8VWdbPW C0VeUtBzWfIlK8D2MwC ih9QRZtwSytWD8aW2Cl RLJzmkyffozklRU4IMW nQOZzqJ24rBTsSCypNl 2zh3F3b862EJWbDFAhm P40Ji2kcDutTKXwqHEE nG4mtercn6vllqplDkS sKOMbHFp5PTl1DOQaxN sxNnXdADI2QdC8SGA1n SXprN2wwNoqtaikaO4s Oyc+K48ckQ9wASQ3QGY 8wwvmAZZwllXlAD63GT 51N9CeUtjnuCJstPO+P XEqztEkxDtvYX3xVnLk n2vtm5YcQJpxI8RiWMC lICjgHve1QBSpQRG8gG W8yJ9gBMHlHGrmu0H1s UV4O4HnrhJymx5lt0dc ZUOrTWlmX12xsORrs4Z 1HRWaxDK2OCTmrOniTo PmnA40Zvt+PGNvbGdyb 7RuEnifw8ikm6thbGe1 IjMwJSIgdmFsaWduPSJ 5o0PjLr84D08oGVwiYL RoPSIxNSUiIHZhbGlnb o0piG1wLm4+PGNvbCB3 aVO9jL4sAEOgMcZ4RMh zM966XrZbjFAbUtizm8 vzy8yplPi1GyJsQDVcs tQegZjpELS0n1MpHb95 P21jKGpbEQFgKDUlUAF wHWDhkDiznp9zpL8lWt 8+PL6ca2ymgy59kY48x HI+HKEqCEO4uEdzWGbk GBNxvT1yJMfvIlT7DAM pBfFppP31gIXzEYptEy 6toGjqfRfoDX4pGAHjn kdyz878QmZmh7pbZXOo lKHgKJoyZUC6H16ne4I 4EGUmNHNoULT6eJY9fA 1hbGlnbjogbGVmdDsgd uAcpKloJXmgWUjoH396 IHRvcDsnPlBhdGllbnQ tUdOtLDz0K9HkVjf3WV MohAilAI1zmMJxNObuK m5vuXqspKusER0ePZIq bakof352YrBda8stOEY lmZPiEZsaLQG9V32ih7 Z6YMHiOQSrHPK4gAD5t Y6obHexokjzaDOzzXec rtOwdAasKYjmUYjdL90 6IHRvcDsnPkJpcnRoIE ZchKW7NW69CA44eQYth 6M6yGF5A3JuGDGubvgb gskogWL9XNPkMSGthL3 9Hx5oqHnuQk1gQCNcQL Y8HRVdpLDjV0JceA5rN sSsNFXjPZPrN1VefSWj WPayY221WUikFfG3PHA ryvQlP5SjTLYgvEdsPd N0b3R7Le3GY6L4TR04W C91aWEfv8N3dYG6H1Fh UUFamgoqeailiGP2BVW nQTBptL65Ai1glRdlJs 6pZBXbOEB0RMAyiUEeY 6KgsO3rNdHbBDMvANCb N6InfGDnJSeqJ269FKp kLhW4LCBiobTtQ6BnEP RghVzoKjB1b7M5Az5JN Lf0MR60JQ25nWKaq8I7 iNA0U8TcCQMtpcmwcrd vgRM3PHKhEZDwcK80Qn 2gvFglJu7cBTWlVZF7E TOkrQKqJ7McyA3xQyJu MFUfIOEvQ0XvlFUcJYu yI135MEweYeZ7LNHsov CzW4DjHDCjfQpiGnI2j 6K8Ms4KAELlYJ94XFR9 mOK0GL82RJ82D5VoGvm vdGFibGU+PHRhYmxlIH dpZHRoPScxMDAlJyBzd QeyKV8xYa4oCGDcABDh iZsawVVrWqEjf9kqSFH iJOwsWU2ohUuaK9MfsK T5MWJon2v2Yu46P59aO 3JvdXA+YSFrdRM5nKJ2 eZ8oEqWfHqH4QGssI76 7EgJwyNTjNsvvu3zhn8 jopXy9YuD7RPVupzDrg WeaRAS7o1MkLf15V09l IHdpZHRoPSIxNSUiIHZ vaGdmpp7zvK6jBi5+PG FkcEW1mHJ4cJ5jKvJfW yB4RXvkH205KxDlxFRm Euugi2ssm1hpxWi2AsL zITStbyZibCnhEKR7l4 UzVo18X3ImiDzbz0SyI zn2og01dECea3M8wNR7 A6YdBBYjlnqdtTStoSc mOY9vBGGtgeyzPRFvfJ 3kSQZjS3g8QpYlJhX4L AsrD9AunpF7RXDzyINb VZdcPNE3N74ps2A3EBM fHGGhPPY8pCG8vM0fxC lnbjogbGVmdDsgdmVyd AaqAOdpLUwjM792JJEc yEcjVTTlkY4iDZLxuKW pvXmmMS3mDRKuvxnyJs rUFXkBRewiUKdDY0QXW FNVRTwvdGQ+PHRkIHN0 lJuvZWnkCVAyqA4zRMG dM1t2XfIvYvX6HAklT0 AxZODskmidHa66kV7bW aPrCuF3JGbxA8CwlqI0 ESGvhQZdCIomZQS7J40 xf5M2CHCcIOMmIXL2rL V1nD7rrDsxqafavFUgq DsgdmVydGljYWwtYWxp I866VUIiuCapNjMgZyO 8TjLdUPH8X3HzRxi5TV DepHnfFQ0feNKjUQybX v2wzNtjyYxdKI2pJGMj hoxcKUEbhD6gHZMsiMB olUmcJK1tUJWzdwzuf3 87MnRtYCO9ETUujPOeY 2DbhZ6zTfIlVWElJWYz B6FsoHPuACquA989ZKx zYsV5TTMdxhGyI8NhRI PokNgnJxU3s5W3Go9bM SBZZWFyczwvdGQ+PHRk UOX7qKcbAXtgWGNjsT4 eRKWxM4q1OqIpWvT9ZY thA9PeOMOolyesWi37h Z7yFfMcXcE9ICfmO9We hcI3VUFmuREgKMfkZGS 8L02zj0V8LLCxMSSxIM K1dYV5lT3gnDybhsvlx GVmdDsgdmVydGljYWwt IRsgM197ILUxcGsmPuL FTUFMRTwvdGQ+PHRkIH X4dTspNDpjYAElqN3iA XLlT0l5TeMmUwY8OZvn Q6JqGLVxrkzgJe99cU7 rOsFpWhY6AMxhJ1Dmlc O4RBYkaYFnTWnsFKN3M 41yw1C8PXFeMIBrGFM4 eJO5dM5teDnytixwqSH mdDsgdmVydGljYWwtYW aoH286CAEbhSqpCj4CE C90MQ91G6RbYawnmLHc bGU+PHRhYmxlIHdpZHR oPScxMDAlJyBzdHlsZT 6qAe6wCJGzQQNngKnji EDxWuUbo6goXYWoOWyk MB8woAnkG4DwlJZ2UHP il6o7Si79Z87uE0FarM A+DTWoqNG5tSJ7lY7nW zOqSdQ1HLkoT069HuMi dJJsHdmst7tcp9xteBq 9IjMwJSIgdmFsaWduPS U2r4ZnTi89H29xZAwuO HRoPSIyMCUiIHZhbGln ov8ydZ7jMm7+PGNvbCB 9gHN1fD5rWeNjUrE7MP moP650JhSagIGyDuylU 40bK8BidCX+PHRyPjx0 IGOaaZgbWH9paDBcMFk oYj6fBWU3YxQfOhMnMK siA3YgLCEkyoymqtzml MQ6URFiXMJnhT43Li7d wUyzZm6cCVCqRIT9OMA xsJVxP1LliF3kCrKoCR VtFHStY2WppITpGWmmZ 641POctAmJ0KFGwwqAn L6YhJYDdhSurAjK0m6F 7Wh1PlWucgCJgTD2jQl TxZFo2L6OtRtx6ODBxg RwbQE0uoWFfWLtkWm9v wAgimGmiGV6mTSHsqxu ea557WxBkn2jpZMIcaF IiKCnrEGG7L41en7P5Q YRdQCDmLUT6wXN9fQ2x bGlnbjogbGVmdDsgdmV swVtnRBrcIFzoH389QA MzcAizKtMJGby7E8ElB sm4YSAerQtoAA5vsDUh TKofLs7ajWtakErrWD9 qHIOpjpuug056TjUyd2 ssMNOqeAPtAVzlWYG5H 59hn8I2QQUhLGJjIID9 cQC1dS6caFgpggmenEZ mdDsgdmVydGljYWwtYW frM445HCYyaWbqBz7UT ib0D6DwHza0QEAbiCqx IW2zpJCsCNkjSt9xwRj svHyyIP1uFBCxobpcn8 79TlJdm4szJRDcyGShH BljMGC0T59na5H5YCId RDOeASG3sOM1eG3hrCs nbjogbGVmdDsgdmVydG ksJOoiZQcwE155TYFul DsnPlBheWVyOjwvdGQ+ TG00gt45T2QwEnlhFzc 0XFQmAEJ4fJI1lR5pRX AyMLpcd1S8bDB6G7Ync mGncf9wh9ugIJNrYGnh Y29 (more content not included)... Normal [facility] ED Clinical Summaryon 2021 ED Clinical Summary [facility] ? Urgent Care [address] [place] [address] Clinical Summary PERSON INFORMATION Name: SENTHIL SCOTT Age: 21 Years Sex: FEMALE : 2000 MRN: Acct#: Visit Reason: UC - Headache; HEADACHE, NAUSEA Arrival: 02/07/2022 17:42:14 Discharge: 02/07/2022 19:03:00 LOS: 000 01:21 Check In: 02/07/2022 17:42:14 Checkout: 02/07/2022 19:03:00 Address: [address] [place] [address] PCP: Liberty Pierre MD PROVIDER INFORMATION Provider Role Assigned Unassigned Cedric Hemphill ED PA 02/07/2022 17:46:36 Salena Ochoa DIRECTOR OF INTELLIGENCE Nurse 02/07/2022 17:46:51 VITALS INFORMATION Vital Sign [...] What to Do If You Are Sick- [facility] (11/25/2020); Viral Respiratory Infection Follow-Up: With: Address: When: Liberty Pierre [address] [place] [address], [facility] [address] Business (1) Within 2 to [...] per current recommendations and guidelines from the [facility] Medical Board [facility]. -Push fluids to stay hydrated. -Use Tylenol [...] else to drop your groceries off and flower picker your medications. I would recommend that person [...] URI with cough Patient Understands: Yes - Patient/family/career specialist verbalizes understanding of instructions given Comment: Normal [facility] ED Patient Summaryon 022 ED Patient Summary [facility] ? Urgent Care [address] [place] [address] PATIENT DISCHARGE INSTRUCTIONS Patient Information Name: SENTHIL SCOTT Age: 21 Years Date of : 2000 Reason For Visit: UC - Headache; HEADACHE, NAUSEA Arrival Time: 02/07/2022 17:42:14 Primary Care Physician: Liberty Pierre MD Attending Physician: Cedric Hemphill Comment: Patient Education With: Address: When: Liberty Pierre [address] [place] [address], [place] [address] Business (1) Within 2 to [...] per current recommendations and guidelines from the [facility] Board [facility]. -Push fluids to stay hydrated. -Use Tylenol [...] else to drop your groceries off and flower picker your medications. I would recommend that person [...] yourself. Get rest and stay hydrated. Take nyup-suz-fdnydlk medicines, such as acetaminophen, to help you feel better. ? Stay in touch with your doctor. Call before you get medical care. Be sure to get care if (more content not included)... [facility] Influenza A&B Rapidon 2021 Influenza A Negative Normal [facility] Comment on above: Performed By: #### 1 [id number] #### [facility] (DEFAULT) [address] [place] [address] Influenza B Negative [facility] Comment on above: Performed By: #### 1 [id number] #### [facility] (DEFAULT) [address] [place] [address] Internal QC OK? Pass Normal [facility] Comment on above: Performed By: #### 1 [id number] #### [facility] (DEFAULT) [address] [place] [address] Progress Note - Nurseon 01-11 Progress Note - Nurse Patient provided with fluids [Electronically Signed on: 02/07/2022 18:30 EDT] __ Salena Ochoa RN [Verified on: 02/07/2022 18:30 EDT] __ Salena Ochoa RN [facility] UA w Culture if Ind Standard on 02-07-2022 Breakpoint UA [facility] Comment on above: Performed By: #### 1 [id number] #### [facility] (DEFAULT) [address] [place] [address] Color (U) Yellow [facility] Comment on above: Performed By: #### 1 [id number] #### [facility] (DEFAULT) [address] [place] [address] Culture? Not Indicated Invalid Interpretation Code [facility] Comment on above: Result Comment: Resu lt created by rule GL_MAGR_ADD_UA_CULT1 Performed By: #### 1 [id number] #### [facility] (DEFAULT) [address] [place] [address] Glucose (U) [Mass/Vol] Negative Normal [facility] Comment on above: Performed By: #### 1 [id number] #### [facility] (DEFAULT) [address] [place] [address] Ketones Ql (U) 40 Normal [facility] Comment on above: Performed By: #### 1 [id number] #### [facility] (DEFAULT) [address] [place] [address] Micro? Not Indicated Invalid Interpretation Code [facility] Comment on above: Result Comment: Resu lt created by rule GL_MAGR_ADD_UA_MICRO Performed By: #### 1 [id number] #### [facility] (DEFAULT) [address] [place] [address] UA Bilirubin SMALL Abnormal [facility] Comment on above: Performed By: #### 1 [id number] #### [facility] (DEFAULT) [address] [place] [address] UA Blood Negative Normal NEGATIVE [facility] Comment on above: Performed By: #### 1 [id number] #### [facility] (DEFAULT) [address] [place] [address] UA Clarity CLEAR Normal CLEAR [facility] Comment on above: Performed By: #### 1 [id number] #### [facility] (DEFAULT) [address] [place] [address] UA Leuk Est Negative Normal NEGATIVE [facility] Comment on above: Performed By: #### 1 [id number] #### [facility] (DEFAULT) [address] [place] [address] UA Nitrite Negative Normal NEGATIVE [facility] Comment on above: Performed By: #### 1 [id number] #### [facility] (DEFAULT) [address] [place] [address] UA pH 6.5 Normal 5-8 [facility] Comment on above: Performed By: #### 1 [id number] #### [facility] (DEFAULT) [address] [place] [address] UA Protein Negative Normal NEGATIVE [facility] Comment on above: Performed By: #### 1 [id number] #### [facility] (DEFAULT) [address] [place] [address] UA Spec Grav >=1.030 Normal 1.001-1.035 [facility] Comment on above: Performed By: #### 1 [id number] #### [facility] (DEFAULT) [address] [place] [address] UA Urobilinogen 1.0 mg/dL Normal 0.2-1.0 [facility] Comment on above: Performed By: #### 1 [id number] #### [facility] (DEFAULT) [address] [place] [address] Urine Source Clean Catch Normal [facility] Comment on above: Performed By: #### 1 [id number] #### [facility] (DEFAULT) [address] [place] [address] Urgent Care Note- Provideron 02-07-2022 Urgent Care Note- Provider Patient: SENTHIL SCOTT Age: 21 years Sex: FEMALE : [...] nose, decreased energy, fatigue, sore throat. Hosted republican last night and drank 1 shot and 1 beer. Only drank 1 glass of water today. Ate McDouble and Bhutanese fries at 5:30pm. + influenza exposure 4 days ago. ALL: None Meds: Midodrine 5mg TID. PMH: Neurocardiogenic syncope, leaky valve of heart Social: Called off work today from [employer]. Worked 02/04, 02/05, 02/06. Marijuana daily. Review [...] headache, dark urine, nausea. She had a republican last night and did drink alcohol. 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 May return [...] (more content not included)... Normal [facility] [place] 022 Urgent Care Record [facility] ? Urgent Care [address] [place] [address] PATIENT DISCHARGE INSTRUCTIONS Patient Information Name: SENTHIL SCOTT Age: 21 Years Date of : 2000 Reason For Visit: UC - Headache; HEADACHE, NAUSEA Arrival Time: 02/07/2022 17:42:14 Primary Care Physician: Liberty Pierre MD Attending Physician: Cedric Hemphill Comment: Visit Diagnosis: Diagnoses This Visit Aching headache (R51.9) Mild dehydration (E86.0) Tachycardia (R00.0) UC - Headache ([id number]) Viral URI with cough (J06.9) If you [...] sign any legal documents With: Address: When: Liberty Ignacio [address] [place], [place] [id number] Business (1) Within 2 to 4 days [...] per current recommendations and guidelines from the [facility] Medical Board [facility]. -Push fluids to stay hydrated. -Use Tylenol [...] else to drop your groceries off and flower picker your medications. I would recommend that person [...] and treatment you received today in the [facility] were for an urgent problem and are not intended as complete care. It is important for you to follow up with a doctor, nurse practitioner, or physician?s market research assistant for ongoing care. If your symptoms become worse or you do not improve as expected and you are unable to reach your usual health ca (more content not included)... Normal [facility] CHLAMYDIA/GONOCOCCUS EMELYN (SW AB/URINE/PAPon 12-11-2021 Chlamydia trachomatis, EMELYN Negative Normal Negative [facility] Comment on above: Performed By: #### C T/NGNA #### [facility] [address] [place] [address] Dr. Soraya Tavarez Neisseria gonorrhoeae, EMELYN Negative Normal Negative [facility] Comment on above: Performed By: #### C T/NGNA #### [facility] [address] [place] [address] Dr. Soraya Tavarez VAGINITIS/VAGINOSIS DNA PROB Jon 12-10-2021 Elvia species Negative Normal Negative [facility] Comment on above: Performed By: #### V AGINT #### [facility] [address] [place] [address] Dr. Soraya Tavarez Gardnerella vaginalis Negative Normal Negative [facility] Comment on above: Performed By: #### V AGINT #### [facility] [address] [place] [address] Dr. Soraya Tavarez Trichomonas vaginalis Negative Normal Negative [facility] Comment on above: Performed By: #### V AGINT #### [facility] [address] [place] [address] Dr. Soraya Tavarez US PELVIS TRANSVAGon 022 [...] by: CLARY LOYD Date: 2021-12-08 14:57 Normal [facility] CORTISOLon 10-22-2020 CORTISOL 11.0 mcg/dL Normal [facility] Comment on above: Result Comment: Refe rence Range: AM 6.0-23.0 mcg/dL PM 0.0-9.0 mcg/dL Performed By: #### 3 [id number] #### [facility] [address] [facility] [address] [place] [id number] Thyroglobulin Ab Qn [IU]/mL Normal 0.0-4.0 [facility] Comment on above: Result Comment: INTE RPRETIVE INFORMATION: Thyroglobulin Antibody A value of 4.0 IU/mL or less indicates a negative result for thyroglobulin antibodies. The Thyroglobulin Antibody assay is being performed using the [employer] Access DxI method. Performed By: [employer] [address] [place] [address] Kinesiology Professor: Kassy Pickens MD TPO ANTIBODY [id number] TPO ANTIBODY 0.3 IU/mL Normal 0.0-9.0 [facility] Comment on above: Result Comment: Perf ormed By: [employer] [address] [place] [id number] Kinesiology Professor: Kassy Pickens MD TSH RECEPTOR AB [id number] TSH RECEPTOR AB <0.90 Normal <=1.75 [facility] Comment on above: Result Comment: Perf ormed By: [employer] [address] [place], [place] [id number] Kinesiology Professor: Kassy Pickens MD Vital Signs Date Time Vital Sign Value Performing Clinician Facility 2023 09:32-0500 Body mass index (BMI) [Ratio] 24.2 kg/m2 Weslypadmini Sue DO Work Phone: [facility] 2023 09:32-0500 Body weight 63.96 kg Wesly Linette DO Work Phone: [facility] 2023 09:32-0500 Diastolic blood pressure 70 mm[Hg] Wesly Linette DO Work Phone: [facility] 2023 09:32-0500 Systolic blood pressure 110 mm[Hg] Wesly Linette DO Work Phone: [facility] 10-04-2023 09:45-0500 Body height 162.56 cm Liberty Pierre Other [employer] Other 10-04-2023 09:45-0500 Body mass index (BMI) [Ratio] 23.51 kg/m2 Liberty Pierre Other [employer] Other 10-04-2023 09:45-0500 Body temperature 97.8 [degF] Liberty Pierre Other [employer] Other 10-04-2023 09:45-0500 Body weight 62.14 kg Liberty Pierre Other [employer] Other 10-04-2023 09:45-0500 Diastolic blood pressure 80 mm[Hg] Liberty Pierre Other [employer] Other 10-04-2023 09:45-0500 SaO2% (BldA) [Mass fraction] 98 % Liberty Pierre Other [employer] Other 10-04-2023 09:45-0500 Systolic blood pressure 108 mm[Hg] Liberty Pierre Other [employer] Other 09-18-2023 13:08-0500 Body height 162.6 cm Arlette Mustafa MD Work Phone: [employer] [facility] 09-18-2023 13:08-0500 Body mass index (BMI) [Ratio] 23.79 kg/m2 Arlette Mustafa MD Work Phone: N[facility]1 09-18-2023 13:08-0500 Body weight 62.87 kg Arlette Mustafa MD Work Phone: [facility] 09-18-2023 13:08-0500 Diastolic blood pressure 64 mm[Hg] Arlette Mustafa MD Work Phone: N[facility] 09-18-2023 13:08-0500 Heart rate 89 /min Arlette Mustafa MD Work Phone: N[facility] 09-18-2023 13:08-0500 Systolic blood pressure 109 mm[Hg] Arlette Mustafa MD Work Phone: N[facility]1-1 07-22-2023 10:10-0500 Body height 162.56 cm Tiesha Juliana Other [employer] Other 07-22-2023 10:10-0500 Body mass index (BMI) [Ratio] 20.94 kg/m2 Tiesha Pittsmond Other [employer] Other 07-22-2023 10:10-0500 Body temperature 98.1 [degF] Tiesha Pittsmond Other [employer] Other 07-22-2023 10:10-0500 Body weight 55.34 kg Tiesha Pittsmond Other [employer] Other 07-22-2023 10:10-0500 Respiratory rate 18 /min Tiesha Juliana Other [employer] Other 07-22-2023 10:10-0500 SaO2% (BldA) [Mass fraction] 98 % Tiesha Juliana Other [employer] Other 05-09-2023 14:30-0400 Body height 162.56 cm Liberty Pierre Other [employer] Other 05-09-2023 14:30-0400 Body mass index (BMI) [Ratio] 17.64 kg/m2 Liberty Pierre Other [employer] Other 05-09-2023 14:30-0400 Body weight 46.63 kg Liberty Pierre Other [employer] Other 05-09-2023 14:30-0400 Diastolic blood pressure 64 mm[Hg] Liberty Pierre Other [employer] Other 05-09-2023 14:30-0400 Systolic blood pressure 104 mm[Hg] Liberty Pierre Other [employer] Other 10-21-2022 12:30-0500 Body height 162.56 cm Liberty Pierre Other [employer] Other 10-21-2022 12:30-0500 Body mass index (BMI) [Ratio] 18.71 kg/m2 Liberty Pierre Other [employer] Other 10-21-2022 12:30-0500 Body weight 49.44 kg Liberty Pierre Other [employer] Other 10-21-2022 12:30-0500 Diastolic blood pressure 60 mm[Hg] Liberty Pierre Other [employer] Other 10-21-2022 12:30-0500 SaO2% (BldA) [Mass fraction] 97 % Liberty Pierre Other [employer] Other 10-21-2022 12:30-0500 Systolic blood pressure 108 mm[Hg] Liberty Pierre Other [facility] [employer] Other 10-17-2022 17:39-0500 Diastolic blood pressure 53 mm[Hg] MD Liberty Pierre Work Phone: [facility] 10-17-2022 17:39-0500 Heart rate 95 /min MD Liberty Pierre Work Phone: [facility] 10-17-2022 17:39-0500 Respiratory rate 16 /min MD Liberty Pierre Work Phone: [facility] 10-17-2022 17:39-0500 SaO2% (BldA) [Mass fraction] 98 % MD Liberty Pierre Work Phone: [facility] 10-17-2022 17:39-0500 Systolic blood pressure 102 mm[Hg] MD Liberty Pierre Work Phone: [facility] 10-17-2022 15:42-0500 Body height 162.56 cm MD Liberty Pierre Work Phone: [facility] 10-17-2022 15:42-0500 Body temperature 97.8 [degF] MD Liberty Pierre Work Phone: [facility] 10-17-2022 15:42-0500 Body weight 50.1 kg MD Liberty Pierre Work Phone: [facility] 05-31-2022 14:29-0400 Blood Pressure Location Sal DOWNS [facility] [place] 05-31-2022 14:29-0400 Diastolic blood pressure 60 mm[Hg] Sal DOWNS [facility] [place] 05-31-2022 14:29-0400 Heart rate 68 /min Sal DOWNS [facility] [place] 05-31-2022 14:29-0400 Respiratory rate 16 /min Sal DOWNS [facility] [place] 05-31-2022 14:29-0400 Systolic blood pressure 108 mm[Hg] Sal DOWNS [facility] [place] Encounters Encounter Date Encounter Type Care Provider Facility Start: 11-27-2023 End: 11-27-2023 ambulatory WESLY LINETTE Not Available Start: 11-20-2023 End: 11-20-2023 ambulatory WESLY LINETTE Not Available Start: 11-13-2023 End: 11-13-2023 ambulatory WESLY LINETTE Not Available Start: 10-27-2023 End: 10-27-2023 ambulatory TANYA JUAN [facility] Start: 10-27-2023 End: 10-27-2023 Emergency department patient visit CONCHA BEJARANO [facility] Start: 2023 End: 2023 ambulatory WESLY LINETTE Not Available Start: 2023 End: 2023 flow sheet Wesly Linette DO Work Phone: [facility] Comment on above: Third trimester preg mamadou Start: 10-09-2023 End: 10-09-2023 ambulatory STEPHEN FOX Not Available Start: 10-04-2023 End: 10-04-2023 ambulatory Liberty Pierre Other [employer] Other Start: 10-04-2023 Office outpatient vi sit 15 minutes Liberty Pierre [facility] Start: 09-25-2023 End: 09-25-2023 ambulatory WESLY LINETTE Not Available Start: 09-21-2023 End: 09-21-2023 ambulatory Liberty Pierre Other [employer] Other Start: 09-21-2023 Office outpatient vi sit 15 minutes Liberty Pierre [facility] Start: 09-18-2023 End: 09-19-2023 ambulatory WESLY R LINETTE [facility] Start: 09-18-2023 End: 09-18-2023 Office outpatient visit 25 minutes Arlette Mustafa MD Work Phone: Maternal- Medicine at [facility] Comment on above: Heartburn during pre gnancy in third trimester (Primary Dx); Cardiovascular disease of mother in , antepartum, third trimester; Postural orthostatic tachycardia syndrome; cardiac echogenic focus, antepartum, single or unspecified fetus Start: 08-28-2023 End: 08-28-2023 ambulatory STEPHEN FOX Not Available Start: 07-27-2023 ambulatory MELINA HAMM [facility] Start: 07-24-2023 End: 07-24-2023 ambulatory STEPHEN FOX Not Available Start: 07-22-2023 End: 07-22-2023 ambulatory Tiesha Andrews Other [employer] Other Start: 07-22-2023 Office outpatient vi sit 15 minutes Tiesha Andrews [facility] [place] Start: 05-25-2023 End: 05-25-2023 ambulatory Liberty Pierre Other [employer] Other Start: 05-25-2023 Telephone encounter Liberty Pierre [facility] Start: 05-09-2023 End: 05-09-2023 ambulatory Liberty Pierre Other [employer] Other Start: 05-09-2023 Office outpatient vi sit 15 minutes Liberty Pierre [facility] Start: 11-02-2022 End: 11-03-[address] LIBERTY PIERRE Facility: Start: 10-21-2022 End: 10-21-2022 ambulatory Liberty Pierre Other [employer] Other Start: 10-21-2022 Office outpatient vi sit 15 minutes Liberty Pierre [facility] Start: 10-17-2022 End: 10-17-2022 Emergency department patient visit Kaci Morales Facility:[facility] Start: 10-17-2022 End: 10-17-2022 Emergency department patient visit MD Liberty Pierre Work Phone: [facility] Work Phone: Start: 10-04-2022 End: 10-05-[address] CLARY LOYD Facility:[facility] Start: 08-16-2022 End: 08-17-[address] CLARY LOYD Facility:[facility] Start: 07-26-2022 End: 07-27-[address] CLARY LOYD Facility:[facility] Start: 07-19-2022 Well child visit Liberty Pierre Other [employer] Other Start: 07-12-2022 End: 07-13-[address] LIBERTY PIERRE Facility: Start: 05-31-2022 End: 06-01-2022 ambulatory Wesly SUE Facility: [facility] Start: 05-31-2022 End: 05-31-2022 Patient encounter procedure Sal DOWNS [facility] [place] Start: 05-02-2022 ambulatory LIBERTY PIERRE PROVIDER Facility: [facility] Start: 12-08-2021 End: 12-08-[address] LIBERTY PIERRE Facility: Start: 12-08-2021 End: 12-09-[address] WESLY SUE . Facility: Procedures Date Procedure Procedure Detail Performing Clinician Start: 2023 Urnls dip stick/tabl et rgnt non-auto w/o micrscp Wesly Sue DO Work Phone: Start: 07-11-2023 Microscopic observat ion [Identifier] in Cervix by Cyto stain Arlette Mustafa MD Work Phone: Start: 10-17-2022 CT of head without contrast MD Liberty Pierre Work Phone: Start: 10-17-2022 Plain chest X-ray MD Maribel Pierre Work Phone: Incision and drainag e of axilla Sal DOWNS Plan of Treatment Date Care Activity Detail Author Start: 07-11-2026 Screening for malignant neoplasm of cervix Pap Smear [facility] [employer] [facility] Start: 09-18-2024 Adult BMI Screening Adult BMI Screen ing [facility] Start: 09-18-2024 Tobacco Screening Tobacco Screening [facility] Start: 12-06-2023 End: 12-06-2023 Patient encounter procedure 12/06/2023 10:30 AM EDT Office Visit [facility] [place] [id number] Genoveva Bailon MD [address] [address], [address] [place] [id number] [facility] Start: 11-13-2023 End: 11-13-2023 Patient encounter procedure 11/13/2023 1:40 PM EST Routine [facility] [address] [phone] Wesly Sue, [address] [place] [address] [facility] Start: 10-16-2023 End: 10-16-2023 Telemedicine consultation with patient 10/16/2023 2:30 PM EST Telemedicine Maternal- Medicine at [address] [phone] Arlette Mustafa MD [address] [place] [id number] [facility] at [facility] Start: 09-18-2023 End: 09-18-2024 Echo complete W/O contrast Echo complete W/O contrast Echocardiography Routine Cardiovascular disease of mother in , antepartum, third trimester Postural orthostatic tachycardia syndrome cardiac echogenic focus, antepartum, single or unspecified fetus Heartburn during in third trimester Expected: 09/18/2023, Expires: 09/18/2024 [facility] Comment on above: Expected: 09/18/2023 , Expires: 09/18/2024 Start: 05-12-2023 Influenza vaccination Influenza Vacc ine [facility] Start: 10-17-2022 Bacteria identified in Urine by Culture [facility] Start: 2019 DTaP,Tdap and Td Vaccines (1 - Tdap) DTaP,Tdap and Td Vaccines (1 - Tdap) [facility] [employer] [facility] Start: 2012 Depression Screening Depression Scre josselyn [facility] End: 09-17-2024 ECG 12 lead ECG 12 lead ECG Routine Cardiovascular disease of mother in , antepartum, third trimester Postural orthostatic tachycardia syndrome cardiac echogenic focus, antepartum, single or unspecified fetus Heartburn during in third trimester 1 Occurrences starting 09/18/2023 until 09/17/2024 [facility] Work Phone: Comment on above: 1 Occurrences starti ng 09/18/2023 until 09/17/2024 Patient Education Head Injury in Adults [facility] Work Phone: Patient referral [facility] Work Phone: Immunizations Immunization Date Immunization Notes Care Provider Luisito spencer 04-09-2019 meningococcal oligosaccharide (groups A, C, Y and W-135) diphtheria toxoid conjugate vaccine (MCV4O) Liberty Pierre Other [employer] Other Payers Date Payer Category Payer Medicaid [employer] [place] [id number] 2023-Present [phone] [address] [place] [address] [id number] 2023 Unknown [id number] 1.13.693.2.7.3. [id number] 2023 Medicaid [id number] 2.16.840.1.382155.19 2022 Self-pay [id number] 2000 Unknown [id number] 2.16.840.1.740613.3.579.2.727 2000 Unknown [id number] 2.16.840.1.120663.3.579.2.593 2000 Unknown [id number] 2.16.840.1.773685.3.579.2.593 2000 Unknown [id number] 2.16.840.1.724772.3.579.2.593 2000 Unknown [id number] 2.16.840.1.660454.3.579.2.593 2000 Unknown [id number] 2.16.840.1.572124.3.579.2.593 2000 Unknown [id number] 2.16.840.1.577584.3.579.2.593 2000 Unknown [id number] 2.16.840.1.180337.3.579.2.593 2000 Unknown [id number] 2.16.840.1.647817.3.579.2.1286 2000 Unknown [id number] 2.16.840.1.726633.3.579.2.1286 2000 Unknown [id number] 2.16.840.1.644320.3.579.2.1286 2000 Unknown [id number] 2.16.840.1.260743.3.579.2.1286 2000 Unknown [id number] 2.16.840.1.060679.3.579.2.1286 2000 Unknown [id number] 2.16.840.1.897681.3.579.2.1286 2000 Unknown [id number] 2.16.840.1.643548.3.579.2.1259 2000 Unknown [id number] 2.16.840.1.348092.3.579.2.1259 2000 Unknown [id number] 2.16.840.1.878592.3.579.2.1259 2000 Unknown [id number] 2.16.840.1.562449.3.579.2.1259 2000 Unknown [id number] 2.16.840.1.794590.3.579.2.1259 2000 Unknown [id number] 2.16.840.1.945048.3.579.2.1259 2000 Unknown [id number] 2.16.840.1.735314.3.579.2.1259 2000 Unknown [id number] 2.16.840.1.660448.3.579.2.1259 1979 Unknown [id number] 2.16.840.1.404614.3.579.2.727 1959 Unknown [id number] Unknown [id number] 2.16.840.1.494747.3.579.2.531 Unknown [id number] Social History Date Type Detail Facility Start: 05-31-2022 End: 05-22-2023 Tobacco smoking status Never smoked tobacco (finding) [facility] [place] Tobacco smoking status Never [facility] [place] Start: 05-22-2023 End: 09-18-2023 Sex Assigned At Female [facility] Start: 10-17-2022 [facility] Start: 2000 Sex Assigned At Female [facility] Start: 05-22-2023 End: 06-16-2023 Tobacco use and exposure Smokeless tobacco non-user [facility] Start: 09-18-2023 End: 2023 Alcohol intake Lifetime non-drinker (finding) [facility] Start: 05-22-2023 End: 09-18-2023 History of Social function [facility] Start: 03-16-[address] [facility] Start: 2000 Sex Assigned At Not on file [facility] Functional Status Date Assessment Result Facility 05-31-2022 Functional Status N/A [facility] 05-30-2022 to 2023 Lizette Bautista MA - 2023 9:30 AM EST Note Date & Type Note Facility 2023 History of Presen t illness Narrative Reason for Appointment: Patient ID: Senthil Scott is a 23 y.o. female who presents for Routine Visit Patient presents today for Return OB appointment. Current Medications: has a current medication list which includes the following prescription(s): omeprazole, ondansetron odt, albuterol hfa, famotidine, hydroxyzine hcl, profe, metoclopramide, metoprolol succinate xl, midodrine, ondansetron, pr 400 ec, promethazine, and pyridoxine. Medical History: [...] nursing note reviewed. Exam conducted with a crm analyst present. Patient presents today for a routine [...] by Lizette Bautista MA on behalf of: Wesly Sue DO documented in this encounter [facility] 10-04-2023 Evaluation note Encounter Date Diagnosis Assessment Notes Sep, Acute non-recurrent maxillary sinusitis (ICD-10 - J01.00) Finish antibiotics WIll notify her OB work note given. [employer] Other 01-11-2024 Evaluation note* Encounter Date Diagnosis Assessment Notes Treatment Notes Treatment Clinical Notes Sep, Viral URI (ICD-10 - J06.9) Ok to stop azithromycin as she likely has a viral infection. Recommend halls and robitussin for cough. Pt requests letter to stay out of hot kitchen at [facility]. Sep, Tachycardia (ICD-10 - R00.0) Advised her to stay hydrated. She doesn't know how or have a smart watch to track her pulse at home. Advised to come in for vitals, discuss w Dr. Sue next week. She will have her mom check her pulse. Noted history of NCS. [employer] Other 01-08-2024 History of Present illness Narrative* [...] was 32 minutes. 24 minutes were direct [id number] for counseling and coordination of care during visits itself. An additional 3 minutes or for same day preparation to see the patient. Another 6 minutes were needed were needed to prepare report and or to perform other duties to complete visit. Thank you for sending this patient. Arlette Mustafa MD Maternal Medicine Professor, [facility] [phone] Office [phone] Personal Cell Phone Office Note: Patient Active [...] had neurocardiogenic syncope. The patient saw a big data engineer that recommended EKG and echocardiogram. The problem list indicates a shortened ND interval. The patient is unaware of pre-excitation [...] wanted the patient to be seen by big data engineer. If this diagnosis is not want the [...] of affects and embryo affects. We reviewed [employer] database. Case reports in human have been [...] considered clinically significant by most. Most recent [facility] guidelines recommend cell free DNA screening as [...] OB provider. documented in this encounter[facility] [email or web address] [facility] [id number] NoteSubjective Senthil Scott is a 22 y.o. year old female patient being seen for Follow-up (FLOORWALKER LEAKY VALVE, HYPOTENSION ) and Syncope Patient Active Problem List Diagnosis Pre-syncope Neurocardiogenic pre-syncope Shortened ND interval No family history on file. Social [...] No Known Allergies Medications Current Outpatient Medications: [id number]- 29-1-400 mg combo pack,tablet and cap,DR, Take [...] and other tests EKG 07/17/23: NSR, short ND interval Assessment/Plan Diagnoses and all orders for [...] Ambulatory referral to Cardiac Electrophysiology; Future Shortened ND interval Pre-syncope - Will order an echocardiogram - she has known vasovagal syncope Previously under control with midodrine daily I discussed with Dr. Max, who is our expert on syncope and vasovagal syncope He has used midodrine in patients and believes it is safe He also felt that symptoms should gradually improve in the next few weeks 2. Short ND interval on EKG: Consider event monitor and EP evaluation if having palpit (more content not included)...[facility]11-11-2023 Evaluation note* Encounter Date Diagnosis Assessment Notes [...] Robitussin for the cough. 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 Off work tomorrow and Monday, may return to work on Monday. Jul, Sore throat (ICD-10 - J02.9) [employer] Other 08-29-2023 Evaluation note* Encounter Date Diagnosis Assessment Notes Treatment Notes Treatment Clinical Notes Apr, Mild intermittent reactive airway disease without complication (ICD-10 - J45.20) Discussed her symptoms and agreed to HFA prn. Apr, Neurocardiogenic syncope (ICD-10 - R55) Midodrine is catagory C and she has been off of it for a few weeks. Will not refill and notify Dr. Sue. [employer] Other 02-10-2023 Evaluation note* Encounter Date Diagnosis Assessment Notes Treatment Notes Treatment Clinical Notes Oct, Neurocardiogenic syncope (ICD-10 - R55) Increased dose of med. Has been through workup with [facility]. Will refer to Neurology to r/o seizure component. Note given for work. [employer] Other 01-24-2023 NotePROCEDURE: XR TIB_FIB LT 2V HISTORY: Pain in lower limb ; persistent mid lower leg pain; follow-up stress reaction COMPARISON: XR tib-fib left 08/16/2022 FINDINGS: BONES:No fracture, dislocation, or periosteal reaction. SOFT TISSUES:No visible soft tissue swelling. EFFUSION:None visible. OTHER: Negative. IMPRESSION: 1. No suspicious bone abnormality. Electronically authenticated by: CLARY LOYD Date: 2022-10-04 15:34[facility]12-06-2022 NotePROCEDURE: XR TIB_FIB LT 2V, XR ANKLE LT MIN 3 V HISTORY: Pain in lower limb ; follow-up stress reaction of left tibia COMPARISON: XR ankle left 07/26/2022, 07/12/2022 FINDINGS: BONES:No fracture, acute abnormality, or significant arthropathy. SOFT TISSUES:No visible soft tissue swelling. EFFUSION:None visible. OTHER: Negative. IMPRESSION: 1. Normal appearance of left tibia-fibula and ankle. Electronically authenticated by: CLARY LOYD Date: 2022-08-16 09:39[facility]12-06-2022 NotePROCEDURE: XR TIB_FIB LT 2V, XR ANKLE LT MIN 3 V HISTORY: Pain in lower limb ; follow-up stress reaction of left tibia COMPARISON: XR ankle left 07/26/2022, 07/12/2022 FINDINGS: BONES:No fracture, acute abnormality, or significant arthropathy. SOFT TISSUES:No visible soft tissue swelling. EFFUSION:None visible. OTHER: Negative. IMPRESSION: 1. Normal appearance of left tibia-fibula and ankle. Electronically authenticated by: CLARY LOYD Date: 2022-08-16 09:39[facility]11-15-2022 NotePROCEDURE: XR ANKLE LT MIN 3 V HISTORY: Pain of left ankle joint ; follow-up ankle sprain COMPARISON: XR ankle left 07/12/2022 FINDINGS: BONES:No fracture, acute abnormality, or significant arthropathy. SOFT TISSUES:No visible soft tissue swelling. EFFUSION:None visible. OTHER: Negative. IMPRESSION: 1. No acute bone abnormality or appreciable degenerative changes. Electronically authenticated by: CLARY LOYD Date: 2022-07-26 15:21[facility]11-01-2022 NotePROCEDURE: XR ANKLE LT MIN 3 V COMPARISON: None. HISTORY: Injury of left ankle FINDINGS: BONES:No fracture, acute abnormality, or significant arthropathy. SOFT TISSUES:Negative. No visible soft tissue swelling. EFFUSION:None visible. OTHER: Negative. IMPRESSION: No acute disease. Electronically authenticated by: CHERRIE FLORES Date: 2022-07-12 13:06[facility]09-20-2022 NoteChief Complaint consultation for abdominal pain HPI [...] Daily, # 30 cap(s), Refills(s) 3, Pharmacy: [id number], 163.8, cm, 05/31/22 14:35:00 EDT, Height/Length Dosing, 53.6, kg, 05/31/22 14:35:00 EDT, Weight Dosing 2. Marijuana use, continuous (F12.90: Cannabis use, unspecified, uncomplicated) see # 1 Ordered: omeprazole, 20 mg = 1 cap(s), Oral, Daily, # 30 cap(s), Refills(s) 3, Pharmacy: [id number], 163.8, cm, 05/31/22 14:35:00 EDT, Height/Length Dosing, 53.6, kg, 05/31/22 14:35:00 EDT, Weight Dosing 3. Anxiety (F41.9: Anxiety disorder, unspecified) see # 1 Ordered: omeprazole, 20 mg = 1 cap(s), Oral, Daily, # 30 cap(s), Refills(s) 3, Pharmacy: [id number], 163.8, cm, 05/31/22 14:35:00 EDT, Height/Length [...] refills Allergies Macrobid (Vomi (more content not included)...[facility] on above:Result Comment: Electronically Signed By: VICTORIA FRANK, Sal Abdi.genaro\Date and Time Signed: 05/31/22 17:28 [id number] NotePatient Education Materials Follows:Disease COVID-19: What to [...] yourself. Get rest and stay hydrated. Take dadr-pdc-ykvocdz medicines, such as acetaminophen, to help you [...] to your local emergency facility: Notify the roll line operator that you are seeking care for [...] household. ? You can visit your state, [facility] [place], local, and [facility] department's website to look for the latest [...] clean your hands with an alcohol-based hand denial management representative that contains at least 60% alcohol. Clean your hands often ? Wash your hands often with soap and water for at least 20 seconds. This is especially important after blowing your nose, coughing, or sneezing; going to the bathroom; and before eating (more content not included)...[facility] Evaluation + Plan note No data available for this section General Surgery [place] Evaluation noteNo assessment information available [facility] Work Phone: Evaluation noteNo InformationNort [employer] Other Evaluation note* Diagnosis Heartburn during in third trimester- Primary Cardiovascular disease of mother in , antepartum, third trimester Postural orthostatic tachycardia syndrome Unspecified tachycardia cardiac echogenic focus, antepartum, single or unspecified fetus documented in this encounter [facility] [employer] SystemEvaluation note* Diagnosis Third trimester state, incidental [...] ARM 2016 Hospitalization History SEE SURGICAL HX [employer] Other Hospital Discharge instructions No data available for this section General Surgery [facility] Discharge instructions Additional Instructions Push fluids Rest Avoid marijuana use Follow-up with your doctor call tomorrow for appointment Return if any problems persist or worsen including chest pain, shortness of breath, numbness, tingling, unilateral weakness or any other concern Take antibiotic as instructed until [facility] Work Phone: InstructionsNot on filedocumented in this encounter [facility] [employer] [facility] note No data available for this section General Surgery [place] Summary Purpose Family History No Family History [...] Referral Specialty Diagnoses / Procedures Referred By Contmary t Referred To Contact Diagnoses Cardiovascular disease of mother in , antepartum, third trimester Postural orthostatic tachycardia syndrome cardiac echogenic focus, antepartum, single or unspecified fetus Heartburn during in third trimester Procedures Echo complete W/O contrast Arlette Mustafa MD [address] [place] [address] Referral ID Status Reason Start Date Expiration Date V isits Requested Visits Authorized [id number] Pending Review 09/18/2023 09/17/2024 1 1 Specialty Diagnoses / Procedures Referred By William huerta Referred To Contact Diagnoses Cardiovascular disease of mother in , antepartum, third trimester Postural orthostatic tachycardia syndrome cardiac echogenic focus, antepartum, single or unspecified fetus Heartburn during in third trimester Procedures ECG 12 lead Arlette Mustafa MD [address] [place] [address] Referral ID Status Reason Start Date Expiration Date V isits Requested Visits Authorized [id number] Pending Review 09/18/2023 09/17/2024 1 1 Reason 11/23/22 Possible seizure [facility] Diagnosis 1 Neurocardiogenic syn cope (R55) Referral Organization [facility] lucretia Referring Provider First Name Liberty Referring Provider Last Name Ignacio Referring Provider Specialty [facility] Referred Organization [facility] Referred Provider Avril Irving Referred Address [address], [place],[address] Referred Provider Specialty Neurology Referral Priority Routine [...] and content) DATE CREATED AUTHOR 12/23/2020 [facility] DATE CREATED AUTHOR AUTHOR'S ORGANIZ ATION 02/10/2022 [facility] DATE CREATED AUTHOR AUTHOR'S ORGANIZ ATION 06/11/2022 [facility] DATE CREATED AUTHOR AUTHOR'S ORGANIZ ATION 10/25/2022 [facility] DATE CREATED AUTHOR AUTHOR'S ORGANIZ ATION 11/06/2022 [facility] DATE CREATED AUTHOR AUTHOR'S ORGANIZ ATION 08/17/2023 [facility] DATE CREATED AUTHOR AUTHOR'S ORGANIZ ATION 09/24/2023 [facility] DATE CREATED AUTHOR AUTHOR'S ORGANIZ ATION 10/29/2023 [facility] DATE CREATED AUTHOR AUTHOR'S ORGANIZ ATION 11/27/2023 [facility] dical Specialists EPIC Care Team (unrecognized sect ion and content) Team Status: Inactive Member Role Status Dates Liberty Pierre MD Primary Care Provider Active Kaci Morales APRN Emergency Provider Active Team Status: Active Member Role Status Dates Liberty Pierre MD Primary Care Provider Active Mini Shifter Relationship Specialty Start Date End Date Liberty Pierre MD [address] [place] [address] PCP - General Family Medicine 05/04/23 Goals [...] BE BASED ON THE PRIMARY CLINICAL RECORDS. [employer] provides no warranty or guarantee of the accuracy or completeness of information in this document.
[2023-11-30 06:47] LABS: Hematocrit 25.8 % (36.0-48.0); Hemoglobin 7.9 g/dL (12.0-16.0); Mean Corpuscular HGB Conc 30.6 g/dL (29.9-35.2); Mean Corpuscular Hemoglobin 23.9 pg (26.7-34.0); Mean Corpuscular Volume 77.9 fL (81.0-99.0); Mean Platelet Volume 10.7 fL (9.5-13.5); Platelet Count 235 10^3/uL (150-450); Red Blood Count 3.31 10^6/uL (4.20-5.40); Red Cell Distribution Width 15.5 % (11.0-15.0); White Blood Count 11.3 10^3/uL (4.0-11.0)
[2023-11-30 07:06] LABS: Amphetamine Screen Urine NEGATIVE (NEGATIVE); Barbiturates Screen Urine NEGATIVE (NEGATIVE); Benzodiazepines Screen Urine NEGATIVE (NEGATIVE); Buprenorphine Screen Urine NEGATIVE (NEGATIVE); Cannabinoid Screen Urine NEGATIVE (NEGATIVE); Cocaine Screen Urine NEGATIVE (NEGATIVE); Methadone Screen Urine NEGATIVE (NEGATIVE); Methamphetamines Screen Urine NEGATIVE (NEGATIVE); Opiate Screen Urine NEGATIVE (NEGATIVE); Oxycodone Screen Urine NEGATIVE (NEGATIVE); Phencyclidine Screen Urine NEGATIVE (NEGATIVE); Tricyclic Antidepressant Urine NEGATIVE (NEGATIVE)
[2023-11-30] MEDS: 0.9 % SODIUM CHLORIDE 1,000 ML 1000 ML IV (07:15)
[2023-11-30] MEDS: AMPICILLIN SODIUM 2,000 MG in 0.9 % SODIUM CHLORIDE 100 ML 200 MG IV (07:15)
[2023-11-30] MEDS: OXYTOCIN/0.9 % SODIUM CHLORIDE 10 UNITS/500 ML PLAST..BAG 6 UNIT IV ×2 (07:16→19:07)
[2023-11-30] MEDS: AMPICILLIN SODIUM 1,000 MG in 0.9 % SODIUM CHLORIDE 50 ML 100 MG IV ×4 (12:13→23:37)
--- NOTE | 2023-11-30 12:37 | PC.NURSE ---
patient sleeping at this time.
--- NOTE | 2023-11-30 14:54 | SWNOTE1 ---
SW consulted to assist pt with medicaid application. Pt is in labor, SW to follow up tomorrow.
[2023-11-30] MEDS: 0.9 % SODIUM CHLORIDE 1,000 ML 125 ML IV ×2 (17:04→22:03)
[2023-11-30] MEDS: ROPIVACAINE HCL/PF 400 MG/200 ML PREMIX 6 MG EPIDURAL (22:36)
[2023-12-01] VITALS (65 sets, daily range): BP systolic 63–151; BP diastolic 30–95; PULSE 77–132; RESP 14–20; TEMP 36.1–36.9; O2SAT 95–100
[2023-12-01] MEDS: 0.9 % SODIUM CHLORIDE 1,000 ML 125 ML IV (02:09)
[2023-12-01] MEDS: AMPICILLIN SODIUM 1,000 MG in 0.9 % SODIUM CHLORIDE 50 ML 100 MG IV (03:59)
[2023-12-01] MEDS: FAMOTIDINE/PF 20 MG/2 ML VIAL IV (06:49)
[2023-12-01] MEDS: CITRIC ACID/SODIUM CITRATE 30 ML SOLUTION ORACIT SHOHL'S SOLN PO (06:49)
[2023-12-01] MEDS: METOCLOPRAMIDE HCL 10 MG/2 ML VIAL IVP (06:49)
[2023-12-01] MEDS: CLINDAMYCIN PHOSPHATE/D5W 900 MG/50 ML PIGGYBACK 100 MG IV ×2 (07:04→14:14)
[2023-12-01] MEDS: LACTATED RINGER'S SOLUTION 1,000 ML 50 ML IV ×2 (07:28→07:52)
[2023-12-01] MEDS: 0.9 % SODIUM CHLORIDE 10 ML VIAL 20 ML INJ (08:07)
[2023-12-01] MEDS: BUPIVACAINE HCL 0.5% PF 50 MG/10 ML VIAL INJ (08:07)
[2023-12-01] MEDS: BUPIVACAINE LIPOSOME/PF 266 MG/13.3 ML VIAL INJ (08:07)
--- NOTE | 2023-12-01 08:10 | PM.OBPRCCS ---
Procedure Pre-op/Post-op diagnoses: Pre-Op/Post-Op Diagnoses Operation Date: 12/01/23 07:30 <No data on this case meets the specified criteria> Procedure: Procedures Operation Date: 12/01/23 07:30 Actual Procedure Side Surgeon p Not Applicable Wesly Sue DO [employer]vel Mill Operator: Wesly Sue Estimated blood loss (mL): 700 Disposition: PACU Anesthesia type: Epidural
--- NOTE | 2023-12-01 08:11 | PM.ONB ---
Brief Operative Note Date of procedure: 12/01/23 Pre-op diagnosis: iup at 39wks, failure to descend, failure to dilate Post-op diagnosis: same as pre-op Procedure: NAME OF PROCEDURE: [ section ] PROCEDURE: Patient was taken back to the Operating Room where she was given a spinal anesthesia with Duramorph without difficulty. She was prepped and draped in the normal sterile fashion. A Pfannenstiel skin incision was then made 2 cm above the symphysis pubis and carried down to underlying rectus fascia using a Bovie. The fascia was incised in the midline and extended laterally using Tineo scissors. Two Brissa clamps were placed on the superior aspect of the fascia and dissected off the underlying rectus muscles. The same was performed on the inferior aspect as well. The muscles were then in the midline. Peritoneum was identified and entered bluntly. The peritoneum was then extended superiorly and inferiorly with good visualization of the bladder. The bladder blade was inserted. A low transverse incision was made on the patient's uterus and extended laterally digitally. The infant was then delivered atraumatically after the bladder blade was removed in the cephalic position. The cord was clamped and cut. Cord blood was obtained. The was handed off to awaiting team. The patient's placenta was spontaneously delivered. The uterus was then exteriorized. The uterus was cleared of all clots and debris. The bladder blade was reinserted. The patient's uterine incision was closed using #0 Vicryl in a running lock fashion. Excellent hemostasis was assured. The uterus was then returned to the patient's abdomen. The patient's abdomen was copiously irrigated using warm saline. Peritoneal gutters were cleared of all clots and debris. Again excellent hemostasis was assured. The patient's peritoneum was closed using 3-0 Vicryl in a running fashion. The patient's fascia was closed using #0 Vicryl in a running fashion. The patient's skin was closed using 4-0 Vicryl subcuticularly. The patient tolerated the procedure well. Sponge, lap, and needle counts were correct x2. The patient was taken to the Recovery Room in stable condition. Anesthesia: epidural Surgeon: Wesly Sue Joinery Machinist: Jaclyn Ha Estimated blood loss (mL): 700 Pathology: none sent Condition: stable Disposition: PACU
--- NOTE | 2023-12-01 09:15 | PC.NURSE ---
Pericare given and clean chux and pad applied; no clots noted and bleeding noted with turning
[2023-12-01] MEDS: OXYTOCIN/0.9 % SODIUM CHLORIDE 20 UNITS/1,000 ML PLAST..BAG 125 UNIT IV (10:00)
--- NOTE | 2023-12-01 14:10 | SWNOTE1 ---
CAMILLA consulted for financial assistance, applying for medicaid. CAMILLA met with pt, her sister, her friend, and her boyfriend (father of baby) were in room as well. Pt is currently living with her boyfriend, boyfriends father, and boyfriends grandmother. Pt's boyfriend is the father of the baby. Pt voiced she does have everything she needs for baby. Pt also voiced she does have a good support system. She spoke about her mother being very involved as well and she will stay with her some as well. Father of baby recently got a job. Pt worked at [employer], but is taking 3 months off. She will not be paid for her time off, but can have her job when she is ready to return. During the conversation in the room, pt's sister answered many questions for pt. SW asked pt about her medicaid. She voiced she used to have it, but then she was cut off, she was not sure why. Pt's sister voiced there mother would know. Pt's sister attempted to call the mother, but she did not answer. Pt voiced she was very tired, but was feeling alright and that she had a . SW asked how she was feeling, anxious, nervous? Pt voiced she was a little anxious and has anxiety. SW asked if she takes medicaiton for this and she stated no. SW asked if she has been to counseling in past and she stated no. SW asked if she was interested in any resources for counseling and she voiced not at this time. SW did talk with pt about post- depression and making she cares for herself and reaches out to her support as needed. She voiced understanding. CAMILLA offered to complete medicaid coni with pt. Pt is agreeable. SW and pt completed as much of the medicaid coni as possible. Pt will need income information and person information about the people who she resides with. She voiced she will get this from her boyfriends grandmother. CAMILLA offered to fax over the application once she has completed it. While filling out medicaid application pt could not remember her phone number and how to spell her boyfriends last name. Pt could also not remember her social security number. During the time SW was in room, pt's sister did most of the care for the baby. SW did ask pt about WIC. Pt's sister voiced pt's mother has already filled out applicaton for WIC and pt already has it. CAMILLA encouraged pt to call WIC and let them know baby is delivered. Pt and sister voiced understanding. CAMILLA spoke with case management and pt is on her father's insurance. Pt has secondary insurance listed and it is [employer], which is a product of medicaid. CAMILLA called Adina Althea in billing and she was able to verify pt was active with [employer] through 12/10/23, but could not see any further. Back in April she has straight medicaid and in July it was switched to [employer]. SW to notify pt. CAMILLA updated pt and family in room, which included pt's mother, father,sister, friend, boyfriend, and another family member. CAMILLA made them aware baby will go on [employer] medicaid. They all voiced understanding. CAMILLA encouraged pt to call [employer] and let them know baby was born and make sure her coverage is active after November and if not what can she do to re-new it. Pt voiced understanding. CAMILLA updated nursing in everything above.
[2023-12-01] MEDS: KETOROLAC TROMETHAMINE 30 MG/ML VIAL IVP ×2 (14:15→19:43)
[2023-12-02] VITALS (21 sets, daily range): BP systolic 101–126; BP diastolic 59–78; PULSE 94–116; RESP 16–18; TEMP 36.4–36.9
[2023-12-02] MEDS: KETOROLAC TROMETHAMINE 30 MG/ML VIAL IVP ×3 (06:00→18:16)
[2023-12-02 06:02] LABS: Basophils Percent Auto 0.2 % (0.2-2.0); Eosinophils Percent Auto 0.1 % (0.9-7.0); Immature Granulocytes Abs Auto 0.11 10^3/uL (0.00-0.03); Immature Granulocytes Pct Auto 0.8 % (0.0-0.5); Lymphocytes Percent Auto 14.9 % (20.5-60.0); Mean Corpuscular HGB Conc 29.6 g/dL (29.9-35.2); Mean Corpuscular Hemoglobin 23.8 pg (26.7-34.0); Mean Corpuscular Volume 80.4 fL (81.0-99.0); Mean Platelet Volume 9.7 fL (9.5-13.5); Monocytes Absolute Auto 0.9 10^3/uL (0.3-0.8); Monocytes Percent Auto 6.5 % (1.7-12.0); Neutrophils Absolute Auto 10.2 10^3/uL (1.4-6.5); Neutrophils Percent Auto 77.5 % (43.0-75.0); Platelet Count 193 10^3/uL (150-450); Red Blood Count 1.68 10^6/uL (4.20-5.40); White Blood Count 13.2 10^3/uL (4.0-11.0)
--- NOTE | 2023-12-02 06:26 | PC.NURSE ---
[id number]- Binder placed on patient for comfort.
[2023-12-02 06:27] LABS: Hematocrit 13.5 % (36.0-48.0)
--- NOTE | 2023-12-02 07:22 | PC.NURSE ---
Report given to Julien Gutierrez RN
[2023-12-02] MEDS: DOCUSATE SODIUM 100 MG CAPSULE PO ×2 (09:33→22:37)
--- NOTE | 2023-12-02 12:16 | PM.OBPN ---
OB - PN: Subj Subjective Patient comments: no complaints, pain well controlled, tolerating diet and flatus present [place] infant status: doing well and bottle [place] feeding status: exclusively bottle feeding Exam Narrative Exam Narrative: THOUGH HEMOGLOBIN THIS MORNING 4, NO COMPLAINTS OF DIZZINESS, BLURRING, HEADACHE, CHEST PAIN, OR DIZZINESS. IS RECEIVING 2 UNITS OF PACKED CELLS. Constitutional Vital Signs, click to edit/add: Last Vital Signs Temp 98.1 F 12/02/23 10:19 Pulse 112 H 12/02/23 10:21 Resp 16 12/02/23 10:19 BP 118/78 12/02/23 10:21 Pulse Ox 98 12/01/23 20:00 O2 Del Method Room Air 12/02/23 09:20 Documenting provider has reviewed patient's vital signs: yes Common normals: no apparent distress, average body habitus, oriented x3, no limitations, healthy appearing, alert and well nourished General appearance: cooperative and comfortable HENMT Common normals: normocephalic and head/scalp atraumatic Eye Pupil: PERRL and accommodation reflex normal Neck & C-Spine Common normals: full ROM and supple Respiratory Common normals: normal respiratory effort Cardio Common normals: regular rate and regular rhythm GI Common normals: Normal to inspection, nondistended, normoactive bowel sounds present Common normals: no CVA tenderness Back & Pelvis Common normals: no thoracic nor lumbar tenderness Extremity Common normals: normal to inspection, full ROM and no calf tenderness Neuro Common normals: oriented x3, CN's II-XII intact bilaterally, moves all extremities, no focal motor deficits and no sensory deficits noted Psych Common normals: mental status grossly normal, thought process normal, cooperative, affect normal and speech normal Results Labs Labs: Short CBC 12/02/23 Range/Units 05:56 WBC 13.2 H (4.0-11.0) 10^3/uL Hgb 4.0 L* D (12.0-16.0) g/dL Hct 13.5 L* (36.0-48.0) % Plt Count 193 (150-450) 10^3/uL Urinary Catheter Management Urinary Catheter Management Urethral: Cath placed during this visit: yes, but has since been removed by the nurse Insertion date: 12/01/23 Removal date: 12/02/23 Removal time: 00:24 OB - PN: A/P Assessment and Plan (1) delivery delivered: Assessment and Plan: S/P PRIMARY CS DUE TO CPD. POD 1 WITH HEMOGLOBIN OF 4, ASSYMPTOMATIC. CURRENTLY RECEIVING 2 UNITS OF PRBC'S. STATES SHE DID NOT KNOW HER HEMOGLOBING WAS LOW ANTEPARTUM AND WAS NOT ON IRON. NO BLURRING VISION, DIZZINESS, HEADACHE, SOB OR HEADACHE. Plan ROUTINE POD 1 PPD 1 CARE. REPEAT CBC AND DIF TOMORROW AM. Plan - day: 1 Plan: routine postop care Time Spent with Patient Time: Total time spent is greater than 50% in coordination of care (as documented) at patient's floor/unit and/or counseling patient: Total time spent with greater than 50% in coordination of care (as documented) at patient's floor/unit and/or counseling patient: less than 15 minutes
[2023-12-02 12:44] LABS: Basophils Percent Auto 0.2 % (0.2-2.0); Eosinophils Percent Auto 0.1 % (0.9-7.0); Immature Granulocytes Abs Auto 0.12 10^3/uL (0.00-0.03); Immature Granulocytes Pct Auto 0.7 % (0.0-0.5); Lymphocytes Absolute Auto 1.7 10^3/uL (1.2-3.8); Lymphocytes Percent Auto 10.3 % (20.5-60.0); Mean Corpuscular HGB Conc 30.2 g/dL (29.9-35.2); Mean Corpuscular Volume 82.7 fL (81.0-99.0); Mean Platelet Volume 9.6 fL (9.5-13.5); Neutrophils Absolute Auto 13.6 10^3/uL (1.4-6.5); Neutrophils Percent Auto 82.7 % (43.0-75.0); Platelet Count 249 10^3/uL (150-450); Red Blood Count 2.48 10^6/uL (4.20-5.40); Red Cell Distribution Width 16.3 % (11.0-15.0); White Blood Count 16.5 10^3/uL (4.0-11.0)
[2023-12-02 12:47] LABS: Hematocrit 20.5 % (36.0-48.0); Hemoglobin 6.2 g/dL (12.0-16.0)
[2023-12-02] MEDS: OXYCODONE HCL/ACETAMINOPHEN 5MG/325MG 2 TAB PO ×2 (12:51→22:36)
--- NOTE | 2023-12-02 23:19 | PC.NURSE ---
pt relies on friend, and mother to perform care. per shift reports father of does not assist mother with care and plays video games and sleeps instead of assisting with infant care and is verbally aggressive when asked to assist with care because he's tired and works. Nurses educate pt on infant care repeatedly and pt verbalizes understanding but relies on support of friend/ or her mother and staff to perform needs (burping, feeding, changing ). Pt gets overwhelmed irritable, and constantly wanting to suck on pacifier or be held. pt calls mother for assistance or relies on friend to hold . pt verbalizes understanding of education by each nurse but is reluctant to be alone with and perform infant care tasks.
[2023-12-03] VITALS (13 sets, daily range): BP systolic 108–137; BP diastolic 56–92; PULSE 88–122; RESP 16–18; TEMP 36.4–36.8
[2023-12-03] MEDS: KETOROLAC TROMETHAMINE 30 MG/ML VIAL IVP (02:14)
[2023-12-03 06:03] LABS: Basophils Percent Auto 0.3 % (0.2-2.0); Eosinophils Absolute Auto 0.1 10^3/uL (0.0-0.7); Eosinophils Percent Auto 0.4 % (0.9-7.0); Immature Granulocytes Abs Auto 0.18 10^3/uL (0.00-0.03); Immature Granulocytes Pct Auto 1.4 % (0.0-0.5); Lymphocytes Absolute Auto 1.6 10^3/uL (1.2-3.8); Lymphocytes Percent Auto 12.7 % (20.5-60.0); Mean Corpuscular HGB Conc 31.1 g/dL (29.9-35.2); Mean Corpuscular Hemoglobin 25.5 pg (26.7-34.0); Mean Corpuscular Volume 82.1 fL (81.0-99.0); Monocytes Absolute Auto 0.8 10^3/uL (0.3-0.8); Monocytes Percent Auto 6.3 % (1.7-12.0); Neutrophils Absolute Auto 10.1 10^3/uL (1.4-6.5); Neutrophils Percent Auto 78.9 % (43.0-75.0); Platelet Count 193 10^3/uL (150-450); Red Blood Count 2.35 10^6/uL (4.20-5.40); Red Cell Distribution Width 16.1 % (11.0-15.0); White Blood Count 12.8 10^3/uL (4.0-11.0)
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
[2023-12-03 06:06] LABS: Hematocrit 19.3 % (36.0-48.0)
[2023-12-03] MEDS: DOCUSATE SODIUM 100 MG CAPSULE PO ×2 (08:36→21:13)
[2023-12-03] MEDS: MIDODRINE HCL 5 MG TABLET PO (08:37)
[2023-12-03] MEDS: LORAZEPAM 2 MG/ML 1 ML VIAL 0.5 MG IV (10:49)
[2023-12-03] MEDS: IBUPROFEN 400 MG TABLET 800 MG PO ×2 (10:51→18:57)
--- NOTE | 2023-12-03 13:05 | PM.OBPN ---
OB - PN: Subj Subjective Interval history: FEELING BETTER AFTER TWO UNITS OF BLOOD FROM YESTERDAY. VOICING NO COMPLAINTS Patient comments: no complaints, pain well controlled, tolerating diet and flatus present [place] status: doing well [place] feeding status: exclusively bottle feeding Narrative: INSTRUCTED TO WEAR SPORTS BRA 03/04 TO INHIBIT MILK PRODUCTION Exam Constitutional Vital Signs, click to edit/add: Last Vital Signs Temp 97.6 F 12/03/23 12:09 Pulse 100 H 12/03/23 12:09 Resp 17 12/03/23 12:09 BP 125/92 H 12/03/23 12:09 Pulse Ox 98 12/01/23 20:00 O2 Del Method Room Air 12/03/23 10:30 Documenting provider has reviewed patient's vital signs: yes Common normals: no apparent distress, oriented x3, healthy appearing and well nourished HENMT Common normals: normocephalic and head/scalp atraumatic Eye Pupil: PERRL and accommodation reflex normal Neck & C-Spine Common normals: full ROM and supple Respiratory Common normals: normal respiratory effort Cardio Common normals: regular rate and regular rhythm GI Common normals: Normal to inspection, nondistended, normoactive bowel sounds present Common normals: no CVA tenderness Back & Pelvis Common normals: thoracic and lumbar spine normal to inspection Extremity Common normals: normal to inspection, full ROM and no calf tenderness Neuro Common normals: oriented x3, CN's II-XII intact bilaterally, moves all extremities, no focal motor deficits and no sensory deficits noted Psych Common normals: mental status grossly normal, thought process normal, cooperative, affect normal and speech normal Results Labs Labs: Short CBC 12/03/23 Range/Units 05:45 WBC 12.8 H (4.0-11.0) 10^3/uL Hgb 6.0 L* (12.0-16.0) g/dL Hct 19.3 L* (36.0-48.0) % Plt Count 193 (150-450) 10^3/uL Urinary Catheter Management Urinary Catheter Management Urethral: Cath placed during this visit: yes, but has since been removed by the nurse Insertion date: 12/01/23 Removal date: 12/02/23 Removal time: 00:24 OB - PN: A/P Assessment and Plan (1) delivery delivered: Assessment and Plan: VOICING NO COMPLAINTS. BONDING WELL WITH BABY. EXCELLENT FAMILY SUPPORT. IS BOTTLE FEEDING. IS AMBULATING, EATING AND ELIMINATING NORMALLY. (2) Blood loss anemia: Plan RECEIVED 2 UNITS PRBC'S YESTERDAY, HEMOGLOBIN INCREASED FROM 4+ TO 6+. DOES NOT COMPLAIN OF SYMPTOMS HOWEVER IS MILDLY TACHYCARDIC SO WILL RECEIVE 2 MORE UNITS OF PRBC'S TODAY AND STARTED ON IRON QQD Plan - day: 2 Plan: routine postop care Time Spent with Patient Time: Total time spent is greater than 50% in coordination of care (as documented) at patient's floor/unit and/or counseling patient: Total time spent with greater than 50% in coordination of care (as documented) at patient's floor/unit and/or counseling patient: less than 15 minutes
[2023-12-03] MEDS: FERROUS SULFATE 325 MG TABLET PO (16:16)
[2023-12-03] MEDS: ACETAMINOPHEN 500 MG TABLET 1000 MG PO (21:13)
[2023-12-04] MEDS: IBUPROFEN 400 MG TABLET 800 MG PO (03:08)
[2023-12-04] MEDS: ACETAMINOPHEN 500 MG TABLET 1000 MG PO (04:14)
[2023-12-04 05:45] LABS: Basophils Percent Auto 0.2 % (0.2-2.0); Eosinophils Absolute Auto 0.2 10^3/uL (0.0-0.7); Eosinophils Percent Auto 1.4 % (0.9-7.0); Hematocrit 24.5 % (36.0-48.0); Hemoglobin 7.9 g/dL (12.0-16.0); Immature Granulocytes Abs Auto 0.22 10^3/uL (0.00-0.03); Immature Granulocytes Pct Auto 1.8 % (0.0-0.5); Lymphocytes Absolute Auto 1.6 10^3/uL (1.2-3.8); Lymphocytes Percent Auto 13.3 % (20.5-60.0); Mean Corpuscular HGB Conc 32.2 g/dL (29.9-35.2); Mean Corpuscular Hemoglobin 26.7 pg (26.7-34.0); Mean Corpuscular Volume 82.8 fL (81.0-99.0); Mean Platelet Volume 9.3 fL (9.5-13.5); Monocytes Absolute Auto 0.8 10^3/uL (0.3-0.8); Monocytes Percent Auto 6.3 % (1.7-12.0); Neutrophils Absolute Auto 9.5 10^3/uL (1.4-6.5); Platelet Count 206 10^3/uL (150-450); Red Blood Count 2.96 10^6/uL (4.20-5.40); Red Cell Distribution Width 16.2 % (11.0-15.0); White Blood Count 12.3 10^3/uL (4.0-11.0)
--- NOTE | 2023-12-04 08:33 | PM.OBPN ---
OB - PN: Subj Subjective Interval history: FEELING BETTER AFTER TWO UNITS OF BLOOD FROM YESTERDAY. VOICING NO COMPLAINTS Patient comments: no complaints and pain well controlled infant status: doing well Exam Constitutional Vital Signs, click to edit/add: Last Vital Signs Temp 98.1 F 12/03/23 22:28 Pulse 96 H 12/03/23 22:28 Resp 16 12/03/23 22:28 BP 133/81 12/03/23 22:28 Pulse Ox 98 12/01/23 20:00 O2 Del Method Room Air 12/03/23 22:28 Documenting provider has reviewed patient's vital signs: yes Common normals: no apparent distress Respiratory Common normals: normal respiratory effort and clear to auscultation bilaterally Cardio Common normals: regular rate and regular rhythm GI Common normals: Normal to inspection, nondistended, normoactive bowel sounds present Extremity Common normals: no calf tenderness Results Labs Labs: Short CBC 12/04/23 Range/Units 05:38 WBC 12.3 H (4.0-11.0) 10^3/uL Hgb 7.9 L (12.0-16.0) g/dL Hct 24.5 L (36.0-48.0) % Plt Count 206 (150-450) 10^3/uL Urinary Catheter Management Urinary Catheter Management Urethral: Cath placed during this visit: yes, but has since been removed by the nurse Insertion date: 12/01/23 Removal date: 12/02/23 Removal time: 00:24 OB - PN: A/P Assessment and Plan (1) delivery delivered: Assessment and Plan: denies n.v.d.f.c. denies cp sob ct ambulating and jose raul diet well, pain controlled, denies any lightheadedness or dizziness (2) Blood loss anemia: Plan - day: 3 Plan: routine postop care, discharge home and other (1wk) Time Spent with Patient Time: Total time spent is greater than 50% in coordination of care (as documented) at patient's floor/unit and/or counseling patient: Total time spent with greater than 50% in coordination of care (as documented) at patient's floor/unit and/or counseling patient: 25 - 35 minutes
[2023-12-04 08:52] VITALS: BP 130/86; PULSE 83
[2023-12-04 08:55] VITALS: BP 130/86; PULSE 83; RESP 16; TEMP 36.4
[2023-12-04 08:56] VITALS: BP 130/86
[2023-12-04] MEDS: FERROUS SULFATE 325 MG TABLET PO (08:56)
[2023-12-04] MEDS: DOCUSATE SODIUM 100 MG CAPSULE PO (08:56)
[2023-12-04] MEDS: MIDODRINE HCL 5 MG TABLET PO (08:56)
--- NOTE | 2023-12-04 11:10 | DS_ITS ---
DISCHARGE DATE: ??12/04/23 ? PRIMARY DIAGNOSES: 1.? Intrauterine at 39 weeks. 2.? Failure to descend. 3.? Failure to dilate. ? PROCEDURE:? section. ? HOSPITAL COURSE:? As expected.? Please see chart for full details.? ? LABORATORY DATA:? Please see chart. ? COMPLICATIONS:? None. ? DISCHARGE CONDITION:? Stable. ? CONSULTATION:? Anesthesia. ? DISCHARGE INSTRUCTIONS: 1.? Diet:? Regular. 2.? Medications: a.? Percocet 5/325 one to two p.o. every 4-6 hours p.r.n. pain. b.? Motrin 800 one p.o. every 8 hours p.r.n. pain. 3.? Followup in one week. Restrictions:? Pelvic rest for 6 weeks.? No heavy lifting.? May drive when pain free and no longer on narcotics. MTDD
== END 2023-12-04 11:45 | disposition home or self-care (01) | DRG 787 ==
PROVIDERS: Obstetrics & Gynecology; Admitting Provider Obstetrics & Gynecology; PCP Family Medicine; Visit Provider Obstetrics & Gynecology
PROC: 10D00Z1 Extraction of Products of Conception, Low, Open Approach (ICD-10-PCS; CPT 59514; principal; 2023-12-01 07:30)
DX: O33.9 Maternal care for disproportion, unspecified (principal); D62 Acute posthemorrhagic anemia; O62.0 Primary inadequate contractions; O32.4XX0 Maternal care for high head at term, not applicable or unspecified; O90.81 Anemia of the puerperium; D64.89 Other specified anemias; Z3A.39 39 weeks gestation of pregnancy; Z37.0 Single live birth; Z59.86 Financial insecurity
CPT/HCPCS: 36415; 36430; 51702; 59050; 64488; 80307; 83540; 85025; 85027; 86850; 86900; 86901; 94667; 94668; 96365; 96366; 96375; 96376; J1094; P9016

== ENCOUNTER 2023-12-13 13:39 | Outpatient (OUT) | payer BC, OTHER, SELFPAY ==
[2023-12-13 14:21] LABS: Basophils Percent Auto 0.6 % (0.2-2.0); Eosinophils Percent Auto 0.6 % (0.9-7.0); Hematocrit 38.7 % (36.0-48.0); Immature Granulocytes Abs Auto 0.01 10^3/uL (0.00-0.03); Immature Granulocytes Pct Auto 0.2 % (0.0-0.5); Lymphocytes Absolute Auto 1.1 10^3/uL (1.2-3.8); Lymphocytes Percent Auto 21.9 % (20.5-60.0); Mean Corpuscular Hemoglobin 26.2 pg (26.7-34.0); Mean Corpuscular Volume 84.5 fL (81.0-99.0); Mean Platelet Volume 9.4 fL (9.5-13.5); Monocytes Absolute Auto 0.5 10^3/uL (0.3-0.8); Monocytes Percent Auto 10.9 % (1.7-12.0); Neutrophils Absolute Auto 3.3 10^3/uL (1.4-6.5); Neutrophils Percent Auto 65.8 % (43.0-75.0); Platelet Count 424 10^3/uL (150-450); Red Blood Count 4.58 10^6/uL (4.20-5.40); Red Cell Distribution Width 17.7 % (11.0-15.0)
== END 2023-12-13 13:40 | disposition home or self-care (01) ==
LOC: LAB 13:43
PROVIDERS: PCP Family Medicine; Visit Provider Physician Assistant
DX: Z48.89 Encounter for other specified surgical aftercare (principal); E61.1 Iron deficiency
CPT/HCPCS: 36415; 85025

== ENCOUNTER 2024-01-31 18:38 | Emergency (ER) | payer OTHER, BC, SELFPAY ==
[2024-01-31 18:42] VITALS: BP 116/76; PULSE 110; TEMP 36.6; O2SAT 98; BMI 21.3
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
--- OUTSIDE RECORDS SUMMARY | 2024-01-31 19:02 | XMS_ITS | CCD ---
Author Organization [facility] Care Team Providers Care Graduate Nurse Name Role Phone LIBERTY PIERRE Primary Care Physician IGNACIO PROVIDERLIBERTY Referring Unavailab Sal Cazares Attending Unavailable Wesly SUE Referring Unavailable Sal DOWNS Attending Unavailable MD Liberty Pierre Primary Care Provider CRISTIN Morales Emergency Provider Kaci Morales Attending [...] CHERRIE Vasquez Consulting Unavailable IGNACIO, DR LIBERTY Ye Primary Care Unavailable IGNACIO, DR LIBERTY Ye Consulting Unavailable IGNACIO, DR [...] DOMINIQUESTEPHEN Attending Unavailable DOMINIQUE, STEPHEN Attending Unavailable DOMINIQUE, STEPHEN Attending Unavailable Allergies Allergy Classification Reported Allergen(s) Allergy Type Date of Onset Reaction(s) Facility (8 sources) cefdinir; Translations: [cefdinir] Drug Allergy Vomiting (disorder) General Surgery Asher (8 sources) NITROFURANTOIN, MACROCRYSTALS / Nitrofurantoin, Monohydrate; Translations: [nitrofurantoin] Drug Allergy Vomiting (disorder) General Surgery [facility]her (1 source) Penicillins Drug allergy (disorder) 11-01-19 22 [facility] Repository (5 sources) patient allergy list reviewed by nurse or physicia Propensity to adverse reactions 04-09-20 19 Comment:Done [employer] Other (5 sources) Allergies Reconciled Propensity to adverse reactions 07-26-20 21 Unknown [employer] Other (2 sources) cefdinir Drug Allergy 07-11-20 23 Unknown [facility] Work Phone: (2 sources) Nitrofurantoin Drug Allergy 07-11-20 23 Unknown [facility] Medications Current Medications Medication Drug Class(es) Dates Sig (Normalized) Sig (Original) [id number] 200 actuat albuterol 0.09 mg/actuat metered dose [...] Start: 05-31-2022 [facility] 1 capsule [facility] omeprazole 20 mg Cap-DR 20 mg = 1 cap(s), Oral, Daily, # 30 cap(s), Refills(s) 3, Pharmacy: [id number], 163.8, cm, 05/31/22 14:35:00 EDT, Height/Length [...] capsule (2 sources) Start: 09-12-19 End: 09-11-19 25 take 1 capsule by mouth once in the morning iron polysaccharides (ProFe) 391.3 (180 Fe) MG capsule Indications: Anemia during in second trimester Take 1 capsule (391.3 mg) by mouth in the morning. 90 capsule 3 09/12/2023 09/11/2024 Active Hqiowe-JiKkk-ZwCgm-FA-[facility]- [place] ([place] 400 ec) 29-1-200 & 400 MG (DR) misc (2 sources) take 1 tablet by mouth in the morning Tdfzsp-NpQsg-GgVvp-FA-[facility] -[place] ([place] Hilary 400 ec) 29-1-200 & 400 MG [...] mg oral tablet (2 sources) Start: 04-10-20 23 take 1 tablet by mouth three times [...] disease (1 source) Atherosclerotic heart disease of [place] coronary artery without angina pectoris; Translations: [Atherosclerotic heart disease of [place] coronary artery without angina pectoris] Onset: 4 [...] UA Negative Negative - 4(70) +++ mg/dL [facility] Blood, UA Negative Negative - 50 Kevin/mcL [facility] Clarity, UA Clear [facility] Color, UA Yellow [facility] Glucose, UA Negative Negative - 2000(110) ++++ mg/dL [facility] Interpretation and review of laboratory results Normal [facility] Ketones, UA Negative Negative - 160(16) ++++ mg/dL [facility] Leukocytes, UA Negative Negative - 500+++ Elijah/mcL [facility] Nitrite, UA Negative Negative - Positive [facility] pH, UA 6.0 5 - 9 [facility] Protein, UA Negative Negative - 1999(20) ++++ mg/dL [facility] Spec Grav, UA 1.025 1 - 1.03 [facility] Urobilinogen, UA 0.2 0.2 - 12 mg/dL [facility] 36on 08-15-2023 36 Msg left on patients phone today regarding telehealth. 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 pyogenes Org specific cx Ql (Throat) Negative [facility] Other Quick Strep [facility] [employer] Other MRI LEG LT WO CONon 11-03-19 [...] CHERRIE ROOT Date: 2022-11-02 23:11 Normal [facility] Amphetamine Screen Ql (U)Ord ered By: Kaci Morales on 10-17-2022 Amphetamines Ql (U) Negative Negative [facility] Automated erythrocytes count in urine sediment (number/area)Ordered By: Kaci Morales on 10-17-2022 RBC Auto (Urine sed) [#/Area] 20-49 [HPF] 0-4 [facility] Automated leukocytes count i n urine sediment (number/area)Ordered By: Kaci Morales on 10-17-2022 WBC Auto (Urine sed) [#/Area] 20-49 [HPF] 0-4 [facility] Automated urine hyaline cast s count (number/volume)Ordered By: Kaci Morales on 10-17-2022 Hyaline casts Auto (U) [#/Vol] None seen [LPF] 0-1 [facility] Automated urine sediment joe cium oxalate crystal count by microscopy (number/high powOrdered By: Kaci Morales on 10-17-2022 Calcium oxalate crystals LM.HPF (Urine sed) [#/Area] 3+ [HPF] [facility] Barbiturates [Presence] in U rineOrdered By: Kaci Morales on 10-17-2022 Barbiturates Ql (U) Negative Negative [facility] Basic Metabolic Panelon Anion gap [Moles/Vol] 13.2 mmol/L Normal 6.0-15.0 [facility] Comment on above: Performed By: #### H S TROP, BMP, CBC #### [facility] [address] Calcium [Mass/Vol] 9.5 mg/dL Normal 8.2-10.2 [facility] Comment on above: Performed By: #### H S TROP, BMP, CBC #### [facility] [address] Chloride [Moles/Vol] 103 mmol/L Normal 95-114 [facility] Comment on above: Performed By: #### H S TROP BMP, CBC #### [address] CO2 [Moles/Vol] 25.5 mmol/L Normal 22.0-30.0 [facility] Comment on above: Performed By: #### H S TROP, BMP, CBC #### [facility] [address] Creatinine [Mass/Vol] 0.80 mg/dL Normal 0.44-1.03 [facility] Comment on above: Performed By: #### H S TROP BMP, CBC #### [address] Creatinine Clr Calc Pharmacy 87.98 [facility] Comment on above: Result Comment: PERF ORMED BY: [place] [address] PATHOLOGIST AGENCY APPOINTMENTS SUPERVISOR ZEB BASURTO M.D. Performed By: #### H S TROP BMP, CBC #### [address] Estimated GFR ( Adelita > 60 [facility] Comment on above: Result Comment: GFR estimated reference range: According to KDOQI guidelines, <60 ml/min/1.73m2 is sufficient to diagnose a patient with chronic kidney disease. Performed By: #### H S TROP, BMP, CBC #### [address] Estimated GFR (Non- Am > 60 [facility] Comment on above: Performed By: #### H S TROP, BMP, CBC #### [address] Glucose [Mass/Vol] 118 mg/dL High 70-100 [facility] Comment on above: Result Comment: [place] Glucose Reference Range is dependent on time and content of last meal. Glucose of more than 200 mg/dL in a nonstressed, ambulatory subject supports the diagnosis of Diabetes Mellitus. ADA recommended reference range Performed By: #### H S TROP, BMP, CBC #### [facility] [address] Potassium [Moles/Vol] 3.7 mmol/L Normal 3.5-5.1 [facility] Comment on above: Performed By: #### H S TROP, BMP, CBC #### [facility] [address] Sodium [Moles/Vol] 138 mmol/L Normal 136-146 [facility] Comment on above: Performed By: #### H S TROP, BMP, CBC #### [facility] [address] Urea nitrogen [Mass/Vol] 10 mg/dL Normal 9-23 [facility] Comment on above: Performed By: #### H S TROP, BMP, CBC #### [facility] [address] Basophils Auto (Bld) [#/Vol] Ordered By: Kaci Morales on 10-17-2022 Basophils (Bld) [#/Vol] 0.0 10*3/uL 0.0-0.2 [facility] Basophils/100 WBC Auto (Bld) Ordered By: Kaci Moraels on 10-17-2022 Basophils/100 WBC (Bld) 0.4 % . [facility] Benzodiazepines [Presence] i n UrineOrdered By: Kaci Morales on 10-17-2022 Benzodiazepines Ql (U) Negative Negative [facility] Bilirubin Test strip Ql (U)O rdered By: Kaci Morales on 10-17-2022 Bilirubin Ql (U) 1+ Negative [facility] CT head/brain wo conon 10-17 CT head/brain wo con [facility] [place] [address] [place] [address] CT Scan Report Signed Patient: Senthil Scott MR#: [id number] 949 : 2000 Acct:[id number] Age/Sex: 21 / F ADM Date: 10/17/22 Loc: ER Room: Type: REG ER Attending Dr: Copies to: Kaci Morales [...] Maricruz Vick M.D.10/17/2022 5:07 PM Dictation Location: [place] [address] Transcribed By: [facility] 10/17/221706 Dictated By: Maricruz Vick MD 10/17/221703 Signed By: 10/17/221706 Normal [facility] Cannabinoids [Presence] in U rine by Screen methodOrdered By: Kaci Morales on 10-17-2022 Cannabinoids Screen Ql (U) Positive Negative [facility] Comment on above: These are unconfirme [...] (Urine sed) None seen [LPF] None Seen [facility] Color Auto (U)Ordered By: Yuriy Morales on 10-17-2022 Color (U) Dark yellow Yellow [facility] Complete Blood Count Auto Di ffon 10-17-2022 Basophils (Bld) [#/Vol] 0.0 10*3/uL Normal 0.0-0.2 [facility] Comment on above: Result Comment: PERF ORMED BY: [place] [address] PATHOLOGIST AGENCY APPOINTMENTS SUPERVISOR ZEB BASURTO M.D. Performed By: #### H S TROP, BMP, CBC #### [facility] [address] [place] [address] Basophils/100 WBC (Bld) 0.4 % Normal . [facility] Comment on above: Performed By: #### H S TROP, BMP, CBC #### [facility] [address] [place] [address] [place] Eosinophils (Bld) [#/Vol] 0.0 10*3/uL Normal 0.0-0.45 [facility] Comment on above: Performed By: #### H S TROP, BMP, CBC #### [facility] [address] [place] [address] [place] Eosinophils/100 WBC (Bld) 0.4 % Normal . [facility] Comment on above: Performed By: #### H S TROP, BMP, CBC #### [facility] [address] [place] [address] Erythrocyte distribution width (RBC) [Ratio] 13.0 % Normal 11.9-15.3 [facility] Comment on above: Performed By: #### H S TROP, BMP, CBC #### [facility] [address] [place] [address] Hematocrit (Bld) [Volume fraction] 37.2 % Normal 34.0-46.4 [facility] Comment on above: Performed By: #### H S TROP, BMP, CBC #### [facility] [address] [place] [address] [place] Hemoglobin (Bld) [Mass/Vol] 12.4 g/dL Normal 11.8-15.4 [facility] Comment on above: Performed By: #### H S TROP, BMP, CBC #### [facility] [address] [place] [address] [place] Lymphocytes (Bld) [#/Vol] 1.1 10*3/uL Normal 1.00-4.8 [facility] Comment on above: Performed By: #### H S TROP, BMP, CBC #### [facility] [address] Lymphocytes/100 WBC (Bld) 14.5 % Normal . [facility] Comment on above: Performed By: #### H S TROP, BMP, CBC #### [address] MCH (RBC) [Entitic mass] 29.4 pg Normal 24.7-34.3 [facility] Comment on above: Performed By: #### H S TROP, BMP, CBC #### [address] MCV (RBC) [Entitic vol] 88.6 fL Normal 80-100 [facility] Comment on above: Performed By: #### H S TROP, BMP, CBC #### [address] Mean Corpuscular HGB Conc 33.2 g/dL Normal 32.0-35.0 [facility] Comment on above: Performed By: #### H S TROP, BMP, CBC #### [address] Monocytes (Bld) [#/Vol] 0.4 10*3/uL Normal 0.0-0.8 [facility] Comment on above: Performed By: #### H S TROP, BMP, CBC #### [place] [address] [place] Monocytes/100 WBC (Bld) 14.49 % Normal 0.00-20.00 [facility] Comment on above: Performed By: #### H S TROP, BMP, CBC #### [place] [address] [place] Monocytes/100 WBC (Bld) 5.2 % Normal . [facility] Comment on above: Performed By: #### H S TROP, BMP, CBC #### [place] [address] [place] Neutrophils (Bld) [#/Vol] 5.8 10*3/uL Normal 1.8-7.7 [facility] Comment on above: Performed By: #### H S TROP BMP, CBC #### [facility] [address] Neutrophils/100 WBC (Bld) 79.5 % Normal . [facility] Comment on above: Performed By: #### H S TROP BMP, CBC #### [facility] [address] NRBC% 0.1 /100{WBC} Normal 0-0.5 [facility] Comment on above: Performed By: #### H S TROP BMP, CBC #### [address] Platelet mean volume (Bld) [Entitic vol] 7.9 fL Normal 6.3-10.7 [facility] Comment on above: Performed By: #### H S TROP BMP, CBC #### [address] Platelets (Bld) [#/Vol] 229 10*3/uL Normal 150-450 [facility] Comment on above: Performed By: #### H S TROP BMP, CBC #### [address] RBC (Bld) [#/Vol] 4.19 10*6/uL Normal 3.60-5.00 [facility] Comment on above: Performed By: #### H S TROP BMP, CBC #### [place] [address] [place] WBC (Bld) [#/Vol] 7.3 10*3/uL Normal 3.8-11.6 [facility] Comment on above: Performed By: #### H S TROP BMP, CBC #### [place] [address] [place] Creatinine and Glomerular fi ltration rate.predicted panel (S/P/Bld)Ordered By: Kaci Morales on 10-17-2022 Creatinine [Mass/Vol] 0.80 mg/dL 0.44-1.03 [facility] Dipstick and Microscopicon 0 10-17-2022 Appearance (U) Cloudy Critically abnormal Clear [facility] Comment on above: Order Comment: Name Collection Type:: Clean-Voided Midstream Performed By: #### A DDONUAPLUS, UHCG, CUU #### [facility] [address] [place] [address] [place] Bacteria,Urine 1+ High None Seen [facility] Comment on above: Order Comment: Name Collection Type:: Clean-Voided Midstream Performed By: #### A DDONUAPLUS, UHCG, CUU #### [facility] [address] [place] [address] [place] Bilirubin,Urine 1+ High Negative [facility] Comment on above: Order Comment: Name Collection Type:: Clean-Voided Midstream Performed By: #### A DDONUAPLUS, UHCG, CUU #### [facility] [address] [place] [address] [place] Calcium Oxalate Crystals,Urine 3+ Normal [facility] Comment on above: Order Comment: Name Collection Type:: Clean-Voided Midstream Performed By: #### A DDONUAPLUS, UHCG, CUU #### [facility] [address] [place] [address] [place] Color (U) Dark Yellow Critically abnormal Yellow [facility] Comment on above: Order Comment: Name Collection Type:: Clean-Voided Midstream Performed By: #### A DDONUAPLUS, UHCG, CUU #### [facility] [address] [place] [address] [place] Glucose Ql (U) Normal Normal Normal [facility] Comment on above: Order Comment: Name Collection Type:: Clean-Voided Midstream Performed By: #### A DDONUAPLUS, UHCG, CUU #### [facility] [address] [place] [address] [place] Hyaline Casts,Urine None Seen Normal 0-1 [facility] Comment on above: Order Comment: Name Collection Type:: Clean-Voided Midstream Performed By: #### A DDONUAPLUS, UHCG, CUU #### [facility] [address] [place] [address] [place] Ketones Ql (U) 1+ High Negative [facility] Comment on above: Order Comment: Name Collection Type:: Clean-Voided Midstream Performed By: #### A DDONUAPLUS, UHCG, CUU #### [facility] [address] [place] [address] [place] Leukocyte esterase Test strip Ql (U) 2+ High Negative [facility] Comment on above: Order Comment: Name Collection Type:: Clean-Voided Midstream Performed By: #### A DDONUAPLUS, UHCG, CUU #### [facility] [address] [place] [address] [place] Nitrite,Urine Negative Normal Negative [facility] Comment on above: Order Comment: Name Collection Type:: Clean-Voided Midstream Performed By: #### A DDONUAPLUS, UHCG, CUU #### [facility] [address] [place] [address] Occult Blood,Urine 3+ High Negative [facility] Comment on above: Order Comment: Name Collection Type:: Clean-Voided Midstream Performed By: #### A DDONUAPLUS, UHCG, CUU #### [facility] [address] [place] [address] [place] Othe Crystals,Urine None Seen Normal [facility] Comment on above: Order Comment: Name Collection Type:: Clean-Voided Midstream Performed By: #### A DDONUAPLUS, UHCG, CUU #### [facility] [address] [place] [address] [place] Other Casts,Urine None Seen Normal None Seen [facility] Comment on above: Order Comment: Name Collection Type:: Clean-Voided Midstream Performed By: #### A DDONUAPLUS, UHCG, CUU #### [facility] [address] [place] [address] [place] pH (U) 5.0 [pH] Normal 5.0-9.0 [facility] Comment on above: Order Comment: Name Collection Type:: Clean-Voided Midstream Performed By: #### A DDONUAPLUS, UHCG, CUU #### [facility] [address] [place] [address] Protein (U) [Mass/Vol] 100 mg/dL High Negative [facility] Comment on above: Order Comment: Name Collection Type:: Clean-Voided Midstream Performed By: #### A DDONUAPLUS, UHCG, CUU #### [address] RBC,Urine 20-49 High 0-4 [facility] Comment on above: Order Comment: Name Collection Type:: Clean-Voided Midstream Performed By: #### A DDONUAPLUS, UHCG, CUU #### [address] Specificy [place],Urine 1.035 High 1.001-1.030 [facility] Comment on above: Order Comment: Name Collection Type:: Clean-Voided Midstream Performed By: #### A DDONUAPLUS, UHCG, CUU #### [address] Squamous Epithelial Cell,Urine 5-9 High 0-2 [facility] Comment on above: Order Comment: Name Collection Type:: Clean-Voided Midstream Performed By: #### A DDONUAPLUS, UHCG, CUU #### [facility] [address] [place] [address] [place] Urobilinogen,Urine Normal Normal Normal [facility] Comment on above: Order Comment: Name Collection Type:: Clean-Voided Midstream Performed By: #### A DDONUAPLUS, UHCG, CUU #### [place] [address] [place] WBC,Urine 20-49 High 0-4 [facility] Comment on above: Order Comment: Name Collection Type:: Clean-Voided Midstream Performed By: #### A DDONUAPLUS, UHCG, CUU #### [address] [place] [address] [place] Drug Screen,Urineon 10-17-19 23 Amphetamine Screen,Urine Negative Normal Negative [facility] Comment on above: Performed By: #### U RDS #### [place] [address] [place] Barbiturate Screen,Urine Negative Normal Negative [facility] Comment on above: Performed By: #### U RDS #### [place] [address] [place] Benzodiazepines Screen,Urine Negative Normal Negative [facility] Comment on above: Performed By: #### U RDS #### [address] Cannabinoid Screen,Urine Positive High Negative [facility] Comment on above: Result Comment: Thes e are unconfirmed results and should not be used for legal purposes. Drug Cut-Off Concentration: AMPH 1000 ng/mL JERRY 200 ng/mL BOBBI 200 ng/mL COCM 300 ng/mL OP 300 ng/mL PCP 25 ng/mL THC 20 ng/mL PERFORMED BY: [place] [address] PATHOLOGIST AGENCY APPOINTMENTS SUPERVISOR ZEB BASURTO M.D. Performed By: #### U RDS #### [place] [address] [place] Cocaine Screen,Urine Negative Normal Negative [facility] Comment on above: Performed By: #### U RDS #### [place] [address] [place] Opiate Screen,Urine Negative Normal Negative [facility] Comment on above: Performed By: #### U RDS #### [place] [address] [place] Phencyclidine Screen,Urine Negative Normal Negative [facility] Comment on above: Performed By: #### U RDS #### [address] ECG 12 lead ECGon 10-17-2022 ECG 12 lead ECG [facility] [place] [address] [place] [address] Electrocardiograph Report Signed Patient: Senthil Scott MR#: [id number] 949 : 2000 Acct:[id number] Age/Sex: 21 / F ADM Date: 10/17/22 Loc: ER Room: Type: [facility] ER Attending Dr: Ordering Provider: Kaci [...] Rightward axis [place] DUFFY [place] ([id number]) on 10/17/2022 6:46:54 PM Referred By: Electronically Signed By:Hai DUFFY DO Transcribed By: MUS Signed By Hai Duffy DO 0 10/17/22 1846 Normal [facility] Eosinophils Auto (Bld) [#/Vo l]Ordered By: Kaci Morales on 10-17-2022 Eosinophils (Bld) [#/Vol] 0.0 10*3/uL 0.0-0.45 [facility] Eosinophils/100 WBC Auto (Bl d)Ordered By: Kaci Morales on 10-17-2022 Eosinophils/100 WBC (Bld) 0.4 % . [facility] Erythrocyte distribution wid th Auto (RBC) [Ratio]Ordered By: Kaci Morales on 10-17-2022 Erythrocyte distribution width (RBC) [Ratio] 13.0 % 11.9-15.3 [facility] Estimated glomerular filtrat ion rate (GFR) non- AmericanOrdered By: Kaci Morales on 10-17-2022 GFR/1.73 sq M.predicted among non-blacks MDRD (S/P/Bld) [Vol rate/Area] > 60 mL/Min [facility] HCG ( test) IA.rapi d Ql (U)Ordered By: Kaci Morales on 10-17-2022 HCG ( test) Ql (U) Negative [facility] HCG,Urineon 10-17-2022 Beta HCG ( test) Ql (U) Negative Normal [facility] Comment on above: Order Comment: Name Collection Type:: Clean-Voided Midstream Result Comment: PERF ORMED BY: [place] [address] PATHOLOGIST AGENCY APPOINTMENTS SUPERVISOR ZEB BASURTO M.D. Performed By: #### A DDONUABEBA, CG, CUU #### [address] Hematocrit Auto (Bld) [Volum e fraction]Ordered By: Kaci Morales on 10-17-2022 Hematocrit (Bld) [Volume fraction] 37.2 % 34.0-46.4 [facility] Hemoglobin [Mass/volume] in BloodOrdered By: Kaci Morales on 10-17-2022 Hemoglobin (Bld) [Mass/Vol] 12.4 g/dL 11.8-15.4 [facility] Ketones Auto test strip (U) [Mass/Vol]Ordered By: Kaci Morales on 10-17-2022 Ketones (U) [Mass/Vol] 1+ Negative [facility] Laboratory - Drug toxicology Ordered By: Kaci Virgenakekta on 10-17-2022 Opiates Ql (U) Negative Negative [facility] Leukocytes [#/volume] correc marv for nucleated erythrocytes in Blood by Automated counOrdered By: Kaci Morales on 10-17-2022 WBC corrected for nucl RBC Auto (Bld) [#/Vol] 7.3 10*3/uL 3.8-11.6 [facility] Lymphocytes Auto (Bld) [#/Vo l]Ordered By: Kaci Morales on 10-17-2022 Lymphocytes (Bld) [#/Vol] 1.1 10*3/uL 1.00-4.8 [facility] Lymphocytes/100 WBC Auto (Bl d)Ordered By: Kaci Morales on 10-17-2022 Lymphocytes/100 WBC (Bld) 14.5 % . [facility] MCH Auto (RBC) [Entitic mass ]Ordered By: Kaci Morales on 10-17-2022 MCH (RBC) [Entitic mass] 29.4 pg 24.7-34.3 [facility] MCHC Auto (RBC) [Mass/Vol]Or dered By: Kaci Morales on 10-17-2022 MCHC (RBC) [Mass/Vol] 33.2 g/dL 32.0-35.0 [facility] MCV Auto (RBC) [Entitic vol] Ordered By: Kaci Morales on 10-17-2022 MCV (RBC) [Entitic vol] 88.6 fL 80-100 F [facility] Monocyte distribution width [Entitic volume] in Blood by AutomatedOrdered By: Kaci Morales on 10-17-2022 Monocyte distribution width Auto (Bld) [Entitic vol] 14.49 % 0.00-20.00 [facility] Monocytes Auto (Bld) [#/Vol] Ordered By: Kaci Morales on 10-17-2022 Monocytes (Bld) [#/Vol] 0.4 10*3/uL 0.0-0.8 [facility] Monocytes/100 WBC Auto (Bld) Ordered By: Kaci Morales on 10-17-2022 Monocytes/100 WBC (Bld) 5.2 % . [facility] Neutrophils Auto (Bld) [#/Vo l]Ordered By: Kaci Morales on 10-17-2022 Neutrophils (Bld) [#/Vol] 5.8 10*3/uL 1.8-7.7 [facility] Neutrophils/100 WBC Auto (Bl d)Ordered By: Kaci Morales on 10-17-2022 Neutrophils/100 WBC (Bld) 79.5 % . [facility] Nitrite Test strip Ql (U)Ord ered By: Kaci Morales on 10-17-2022 Nitrite Ql (U) Negative Negative [facility] No Panel InformationOrdered By: Kaci Morales on 10-17-2022 Estimated GFR () > 60 mL/Min [facility] Comment on above: GFR estimated refere nce range: According to KDOQI guidelines, <60 ml/min/1.73m2 is sufficient to diagnose a patient with chronic kidney disease. Pharmacy Creatinine Clearance (Chem 87.98 [facility] Nucleated erythrocytes [Pres ence] in Blood by Automated countOrdered By: Kaci Morales on 10-17-2022 Nucleated RBC Auto Ql (Bld) 0.1 /100{WBC} 0-0.5 [facility] Phencyclidine Screen Ql (U)O rdered By: Kaci Morales on 10-17-2022 Phencyclidine Ql (U) Negative Negative [facility] Platelet mean volume Auto (B ld) [Entitic vol]Ordered By: Kaci Morales on 10-17-2022 Platelet mean volume (Bld) [Entitic vol] 7.9 fL 6.3-10.7 [facility] Platelets Auto (Bld) [#/Vol] Ordered By: Kaci Morales on 10-17-2022 Platelets (Bld) [#/Vol] 229 10*3/uL 150-450 [facility] Protein Auto test strip (U) [Mass/Vol]Ordered By: Kaci Morales on 10-17-2022 Protein (U) [Mass/Vol] 100 mg/dL Negative [facility] RBC Auto (Bld) [#/Vol]Ordere d By: Kaci Morales on 10-17-2022 RBC (Bld) [#/Vol] 4.19 10*6/uL 3.60-5.00 [facility] Serum or plasma anion gap de terminationOrdered By: Kaci Morales on 10-17-2022 Anion gap [Moles/Vol] 13.2 mmol/L 6.0-15.0 [facility] Serum or plasma calcium jesus urement (mass/volume)Ordered By: Kaci Morales on 10-17-2022 Calcium [Mass/Vol] 9.5 mg/dL 8.2-10.2 [facility] Serum or plasma chloride iam surement (moles/volume)Ordered By: Kaci Morales on 10-17-2022 Chloride [Moles/Vol] 103 mmol/L 95-114 [facility] Serum or plasma glucose jesus urement (mass/volume)Ordered By: Kaci Morales on 10-17-2022 Glucose [Mass/Vol] 118 mg/dL 70-100 [facility] Comment on above: ADA recommended refe rence rangeRandom Glucose Reference Range is dependent on time and content of last meal. Glucose of more than 200 mg/dL in a nonstressed, ambulatory subject supports the diagnosis of Diabetes Mellitus. Serum or plasma potassium me asurement (moles/volume)Ordered By: Kaci Morales on 10-17-2022 Potassium [Moles/Vol] 3.7 mmol/L 3.5-5.1 [facility] Serum or plasma sodium measu rement (moles/volume)Ordered By: Kaci Virgenakekta on 10-17-2022 Sodium [Moles/Vol] 138 mmol/L 136-146 [facility] Serum or plasma total carbon dioxide measurement (moles/volume)Ordered By: [facility]aci [facility] on 10-17-2022 CO2 [Moles/Vol] 25.5 mmol/L 22.0-30.0 [facility] Serum or plasma urea nitroge n measurement (mass/volume)Ordered By: Kaci Morales on 10-17-2022 Urea nitrogen [Mass/Vol] 10 mg/dL 9- [facility] Specific gravity Auto test s trip (U) [Rel density]Ordered By: Kaci [facility] on 10-17-2022 Specific gravity (U) [Rel density] 1.035 1.001-1.030 [facility] Squamous epithelial cells de tection in urine sediment by light microscopyOrdered By: Kaci Morales on 10-17-2022 Epithelial cells.squamous LM Ql (Urine sed) 5-9 [HPF] 0-2 [facility] Troponin I High Sensitivityo n 10-17-2022 Troponin I High Sensitivity < 3 Normal 0-15 [facility] Comment on above: Result Comment: PERF ORMED BY: [place] [address] PATHOLOGIST AGENCY APPOINTMENTS SUPERVISOR ZEB BASURTO M.D. Performed By: #### H S TROP, BMP, CBC #### [address] Troponin I.cardiac [Mass/vol ume] in Serum or Plasma by High sensitivity methodOrdered By: Kaci Morales on 10-17-2022 Troponin I.cardiac High sensitivity method [Mass/Vol] < 3 pg/mL 0-15 [facility] Urine Cultureon 10-17-2022 Bacteria identified Cx Nom (U) 75,000 colonies/ml mixed bacterial skin contaminants 2 Days PERFORMED BY: [place] [address] PATHOLOGIST AGENCY APPOINTMENTS SUPERVISOR ZEB BASURTO M.D. Normal [facility] Comment on above: Performed By: #### A DDONUAPLUS, UHCG, CUU #### [address] Urine bacteria detection by automated methodOrdered By: Kaci Morales on 10-17-2022 Bacteria Auto Ql (U) 1+ None Seen [facility] Urine clarity by refractomet ry automatedOrdered By: Kaci Morales on 10-17-2022 Clarity Refractometry automated (U) Cloudy Clear [facility] Urine cocaine detectionOrder ed By: Kaci Morales on 10-17-2022 Cocaine Ql (U) Negative Negative [facility] Urine glucose measurement by automated test strip (mass/volume)Ordered By: Kaci Morales on 10-17-2022 Glucose Auto test strip (U) [Mass/Vol] Normal mg/dL Normal [facility] Urine hemoglobin detection b y automated test stripOrdered By: Kaci Morales on 10-17-2022 Hemoglobin Auto test strip Ql (U) 3+ Negative [facility] Urine leukocyte esterase det ection by automated test stripOrdered By: Kaci Morales on 10-17-2022 Leukocyte esterase Auto test strip Ql (U) 2+ Negative [facility] Urine sediment crystal ident ification by light microscopyOrdered By: Kaci Morales on 10-17-2022 Crystals LM Nom (Urine sed) None seen [HPF] [facility] Urobilinogen Auto test strip (U) [Mass/Vol]Ordered By: Kaci Morales on 10-17-2022 Urobilinogen (U) [Mass/Vol] Normal mg/dL Normal [facility] WBC Auto (Bld) [#/Vol]Ordere d By: Kaci Morales on 10-17-2022 WBC (Bld) [#/Vol] 7.3 10*3/uL 3.8-11.6 [facility] XR chest 1V portableon 10-17 XR chest 1V portable [facility] [place] [address] [place] [address] XRay Report Signed Patient: Senthil Scott MR#: [id number] 949 : 2000 Acct:[id number] Age/Sex: 21 / F ADM Date: 10/17/22 [...] Maricruz Vick M.D.10/17/2022 4:47 PM Dictation Location: [place] [address] Transcribed By: [facility] 10/17/22 1647 Dictated By: Maricruz Vick MD 10/17/22 1645 Signed By: 10/17/22 1647 Normal [facility] pH Auto test strip (U)Ordere d By: Kaci Morales on 10-17-2022 pH (U) 5.0 [pH] 5.0-9.0 [facility] Provider Letter FTon 05-31 Provider Letter [facility] May 31, 2022 SENTHIL SCOTT [address] [place] [phone] SENTHIL SCOTT 2000 To Whom It May Concern, Please excuse above patient from work 05/28/2022. Dr. Sal Downs MD General Surgery [facility] Provider Letteron 05-17-2022 Provider Letter May 17, 2022 SENTHIL SCOTT S [address] [place] [phone] TYLERSENTHIL JAMES S 2000 Dear Senthil, We have been trying to reach you with no success. It is important that you return our call regarding your referral from Dr. Ham upon receiving this letter. Also, at the time of your call, please provide us with your current information. Thank you for your prompt attention to this matter. Sincerely, General Surgery [phone] [facility] Physician Referralon 022 Physician Referral [phone] [id number] [facility] 2018 Novel Coronavirus (CoVI D-19), EMELYN LCon 02-10-2022 SARS-CoV-2 (COVID-19) RNA EMELYN+probe Ql (Unsp spec) Not detected Invalid Interpretation Code Not Detected [facility] Comment on above: Order Comment: [id number] 1 # [phone] Result Comment: This nucleic acid amplification test was developed and its performance characteristics determined by [employer]. Nucleic acid amplification tests include RT- PCR [...] detected) result in this assay. Performed At: [facility] [address] [place], [place] [id number] Sanjuanita Hernández PhD Ph:[phone] Performed By: #### 6 [id number] #### [place] [id number] Coding Summaryon 02-10-2022 Coding Summary HTMLBase 64 YczswmvaIQz9iFd+PGh lYWQ+WS7ZSSWuB33nzE HyuC5DG9aVHU6GTHFDG CEOUX6PQL0qoQN9LKxq U8FhleKm DzjaqLNyOZ57KRw1MKP 4jFyyORvffB9xyNGrS2 b8UkSwSR64sK64ZJobO ZAgRfZ5QvGnoacvrRUu R1vsEnDoyPRwOis+PHR hYmxlIHdpZHRoPScxMD XuElGesJsuOX1kBk1jW GVyLWNvbGxhcHNlOiBj d2vzIPMtWLcvJE3aiJi nN3VzsYB1XMUmz0y4Zj 48dHI+VVYeAZE1rHzvX Ytaw852ExNlo9vtJXM0 kUNzAVscMHS9V66co2H 3CXUrSXStNBQ4aTT4cM 8daEluvkxiS3WsuLOxG sV9CMA7dKJbyD5eaGod fivugF1zWeg+R49HLK2 RNOBOLY0YYhv9N6CmOx wvdHI+MI63BMIhLR34k GQyyLHav0jgnSp7HdNy OSEvCZI8uWhdBBqlz3G bUVMwZ85lnYOdx5Y6NB OjyZxhlONxLpTzaYY9l F4cHMpjpicev1gtpyya Gyeor7sqin77gK11O03 eLCckNRJqRSJ3POEcQU BrqTalxk9llT3dKi9+I Tpix6bxr7kyzIc3TmBd NYGjimQdlKxpVBG0a8E dWr33Z3NivBmrl0AoWc k2za98mRWso0Z9tNC1R RexJMIgtC1wGExbYmY7 ZBOhGaGobA56dGLkRSu zVs5uiNjwaByhBU9tBO QkziaxMVHflS0oDTTfs TCjiXcrKC1vQAJgbwvt h612BiIvWJA0GJOhbDT pF5QviW4nOfQkOUSiTY CvD9IeoFZnKNofK022O BycVrE1MUCptbYeX4Td CPBwyBdgMvI9t6Y6Qg9 Zv5VzxuawVRP5OJaqKP Z1YpPuFuBoOvA1M3RuS gf7QDMscNrmUS5tR1Bq WUFdhhulbqvdrTX1TBL rKNOziN87bEOlRErvGl 3fb2N1u538LXYePGAdv N63Oz5bwFymIUIyxYDH eO1nnehil4acjpavJvP dNLXzTMn2BPf0JXUjvN acJzThMWX2SpM9VUA5v OXsmG7aaHsqtpuasV3x Oyc+Y70krU8cHUW1REL 1dgcuIHCzpkVpGG60JF 17W3RoIvnbuAGlwKL+P HWwfjLjdUgtYJ5mIqGy f4gdj3PoCXemD1YaNBU dCYyeSbj4LKUeDYT5yR Z1aL0oGMGfFLmrf8O4i YH5Z8VjsnOdqg2xw7tz YYDnUMdgZ15laTEfj5Z 1IWLsfAL8YTEhiQgqHd VawK30Afy+PGNvbGdyb 1VzSxztg4hun7lfrVx4 IjMwJSIgdmFsaWduPSJ 7k0QmHh70E93qGBteFT RoPSIxNSUiIHZhbGlnb f1nlG2wRm3+PGNvbCB3 hGM1rH4bDYRiEzA1AOp rA900FyXplABkHnzcj5 ioe1pfrNb4UmVnDDEqx vNxrZtpOAX8j7YpOu03 O71jVYfhYASfRYMgBWQ vRCOssSmxff2vbG2tIj 8+UZ3yr6nsra21sJ71f HI+PXJsPYC7jOkcBBhj KVDaqF9xLPsgIqC5YBJ iUlDkkS07eSBgABdsFu 6xqTqijQuqFB3gVSFwe pqaw143JvPbg2pfNXVa xPVeWLjsYLH7O19bj4V 3WQDyLRYrOGB4zOK1tO 1hbGlnbjogbGVmdDsgd xTppVqiLOezHKtwJ987 IHRvcDsnPlBhdGllbnQ aPqNdYNp5I1BrMit3UD TshDhkRC4gnYZiAKerA l6ptIytaJthDM6fDYHj wpgxp923AxEzn4ubCFJ ufZHqRSduBFB9K64ri5 Q6JDFtVLMzYAN5cVC9o Z2asWxywdmyzPDibYzn mdDbbBpoBSodCKzyP28 6IHRvcDsnPkJpcnRoIE ShnZC6MB48IE90pTYuh 9A8fPE5W8ZsMEEobbit cdlckGI1PSMiKOXkkC9 5Wo1lnEdyKy4hBCSqIM X3EOLrqGZzL3HcqJ2pC dNaAAAlFENxR8XvtAJf KOnfX855MPbdGlR5JJQ gxuVhA7OiYCCgrMhsZk U0b5H4Sl3IN2R0CV98S O24nGKgw9I0cPY5R2It IEXpskvxphtiaTR0AIS yDVNdrJ15Wt7syRuiLl 9uDYOaEPO5DMDapPAmM 3AsdP7dKkDxUPDaNJLr C0MhbOHyFYbaI661YPf vYgZ3PAKzytZwM1ZrBS QdjYnnKpZ2l8E0Jo3AQ Xw2KE09DZ44oIDwe0K7 mBF7P1MvBBWpbwnttbb acGF5QUFcXHZfxN72Xf 8ioXulEi0tWFYeZDM6C STuhHUpC8JrzW5aMvYi ADHwSEUcE2TubHGbHJa rD363EDlfFsM7FGPwvd KpU3DaAWOerFuqQiY6l 5R6Tv5ASUUnJL52SHX3 cDU8EL51OJ74C6NpDfs vdGFibGU+PHRhYmxlIH dpZHRoPScxMDAlJyBzd BxsWD5aLv6vAHMmTAEf lYlahFYjGaUvv0piBYK mIGnvJJ6miSenW3JijP N8VEGkg9t1Lm42M93mA 3JvdXA+XMUofRL8oYI4 xB7mWiEgVyR0EIjwF73 5JiGriBQzQgwqp2pdm8 wnoRe5QsY3MWXuqhTqx EimQXJ0i4HsFi75P29t IHdpZHRoPSIxNSUiIHZ ecUorls5erB4mVk5+PG OnfWV4gJD8sI4fFqLlY iG2CHwmN314IhPieKHi Atqhr4xbm1xknAj0UkV uEJUgjiYrmBmnQMY2m7 ThBf52F2PfgNejj9ImP jy9qf85aXKby2E9kOW1 N7CfOIKktartsJEucJb sHF8oRPAdhyvkORAjpX 8pSXZpR5a8KxEbAvX0K TnvD6FwzyS3MNBsrBNf YRlwZQC3C63hb6V5NSR uPYUbGZI1cTC0vC3csC lnbjogbGVmdDsgdmVyd HgiIMgyWUoxQ952OJUw pCgdVLQcyM8lLYTjxTE enVdrHQ6oJNJcpxhxFx oOISzQFeziUHzDM8HVW FNVRTwvdGQ+PHRkIHN0 fJelDGxbGBBmiY0jVIA hG9f1MsPnJbS2WEgmY1 PbLVLvowthYa00gG6lY gJiQeN0SCabR4JmkfJ9 UTFriPOjHRrpNSL8X41 ai7Q3HMQoQDEwJUW8oB Z9yR3dcBqypwjdpLXch DsgdmVydGljYWwtYWxp S629KGNcxEosBwRnKpB 3WoCwRVQ0U4AoCce3AI UemJxxYT8brONsMJohD c0tgTmqsWmmID3hOTKe qeetDPCedL5dOKGzyJJ ulCtbBU5bQDLcyybuc8 43CkQhHGU6XVHafAEsH 7BotW6sOuTpEEScFBCo T6VadHWuVHjdO148TBz oWuQ3ZPTsgrUeM1ZhGY XcmAgjJgR8l9J4Jm2vZ SBZZWFyczwvdGQ+PHRk ROY5xFicTRhjFZVsrF5 dWQHaJ0k2ZmMlUfF8LR iyO8BzVUMkmevyAu24k H0dItLuQvP9MEpcP9Wj kdF5PUEluVPbAEgrFAT 0F33nr7V8EELiLZTfSD X9mPY9vE3bpLhovhriu GVmdDsgdmVydGljYWwt PFpqA481TKCgwHntQmM FTUFMRTwvdGQ+PHRkIH I9rKnhJOqvEVVxjE7oF WIhF4j2NxPfZaV5EGpk G0YxFILcknkuIl31gD6 bWrGgAkG6SRrxI0Iykr P7OTYjyLLrRDudGRZ7J 48qb8T1YHOdHBSoKNF5 gST8bD3ygAsoszrxeAJ mdDsgdmVydGljYWwtYW azN097BNYpeMsqLc2PW K40KT48G6FqZbbscPZi bGU+PHRhYmxlIHdpZHR oPScxMDAlJyBzdHlsZT 8yEv5cMNWrNXPskKeus UHaRbRuf5neKOPuPLdo FS0vaQzuG3EcmPV7OMJ ki8p0Pl10I64oG2PzdU A+HBDgzDH8fUY5eB5tO pZnPfP8SGdoX220KhJp aCKbGzlmp2cnd5zsxMg 9IjMwJSIgdmFsaWduPS R9t9AyXl55K67zYDtoH HRoPSIyMCUiIHZhbGln ck6koM5iWv1+PGNvbCB 0yFD8cJ1zPrReBoQ1RN urM690MvXuyVGqZqaxI 67rV5CoiPG+PHRyPjx0 HUInhIxrXI8awHUiSHj tRc9jFXZ6SmHaAeKzXS suM6DwYDQiypbgnixrv MQ8PPZnMIEnlP47Kc4a xYegAc3vWAZgGGH9TBS byDGrD5TdmR1fBbMyFU WlMGLnK9KesRJvEEtjA 128YIztTlP9TNIpbzNe N7SlRBBfuGasOrL5x5C 6Yo2BdHzfqGSyLS4lIx JjNGx6B0LePeh8ZQKhl WfgOT7ymQXsGDqoAl1x mSlhvGraJL7bKGQletl xu654KvDgz9hdJNJyuE ZoVZseXCA1Y71tz4S3P ZHpHJLmYYL7sKW7vQ9r bGlnbjogbGVmdDsgdmV pxKydRFolLCptG875EQ SwlEblPrZBWad7S7CeB bs5WVOhiHlsWU4zqCMk HEccYl4bbEnnwYcmFZ9 cMXQvgkxln899XbMiv6 koOOXprFDgNFnvHIU0W 59fy3H6BXBjRGTxTMZ9 jDU2yE7trOdvdkrbzFQ mdDsgdmVydGljYWwtYW hrO738LUOaqKvdVr4SX oy1U2KzYwe2VVDrkHto BC2orLJtFIqsBz3bzAi ygPmaDT2wYPFbwweom1 36HmXwb1usJVGirYTlY BqgFZX2O60vm4D4TXEm XNUpZSJ6tWK2iE1avHj nbjogbGVmdDsgdmVydG mvPFpvEObgI918KSJsn DsnPlBheWVyOjwvdGQ+ GO67ry42Y2UvTkzxLjy 4BIErBLO1uRU4qO9rKM QcAZysa1K7mQY2S7Ncf fWoui1ps0tzFMJwYAvd Y29 (more content not included)... Normal [facility] ED Clinical Summaryon 2021 ED Clinical Summary [facility] ? Urgent Care [address] [place], [place] [id number] Clinical Summary PERSON INFORMATION Name: SENTHIL SCOTT Age: 21 Years Sex: FEMALE : 2000 MRN: Acct#: Visit Reason: UC - Headache; HEADACHE, NAUSEA Arrival: 02/07/2022 17:42:14 Discharge: 02/07/2022 19:03:00 LOS: 000 01:21 Check In: 02/07/2022 17:42:14 Checkout: 02/07/2022 19:03:00 Address: [address] [place] [address] PCP: Liberty Pierre MD PROVIDER INFORMATION Provider Role Assigned Unassigned Cedric Hemphill ED PA 02/07/2022 17:46:36 Salena Ochoa STEM LEAD FORMER Nurse 02/07/2022 17:46:51 VITALS INFORMATION Vital Sign [...] What to Do If You Are Sick- [facility] (11/25/2020); Viral Respiratory Infection Follow-Up: With: Address: When: Liberty Pierre [address] [place] [address], [place] [address] Business (1) Within 2 to 4 days [...] per current recommendations and guidelines from the [facility]. -Push fluids to stay hydrated. [...] else to drop your groceries off and worm picker your medications. I would recommend that [...] URI with cough Patient Understands: Yes - Patient/family/customer care associate verbalizes understanding of instructions given Comment: Normal [facility] ED Patient Summaryon 022 ED Patient Summary [facility] ? Urgent Care [address] [place] [address] PATIENT DISCHARGE INSTRUCTIONS Patient Information Name: SENTHIL SCOTT Age: 21 Years Date of : 2000 Reason For Visit: UC - Headache; HEADACHE, NAUSEA Arrival Time: 02/07/2022 17:42:14 Primary Care Physician: Liberty Pierre MD Attending Physician: Cedric Hemphill Comment: Patient Education With: Address: When: Liberty Pierre [address] [place] [address], [place] [address] Business (1) Within 2 to [...] per current recommendations and guidelines from the [facility] Medical Board [facility]. -Push fluids to stay hydrated. [...] else to drop your groceries off and worm picker your medications. I would recommend that [...] yourself. Get rest and stay hydrated. Take itfp-pko-axxyrre medicines, such as acetaminophen, to help you feel better. ? Stay in touch with your doctor. Call before you get medical care. Be sure to get care if (more content not included)... [facility] Influenza A&B Rapidon 2021 Influenza A Negative Normal Negative [facility] Comment on above: Performed By: #### 1 [id number] #### [facility] (DEFAULT) [address] [place] [address] Influenza B Negative [facility] Comment on above: Performed By: #### 1 [id number] #### [facility] (DEFAULT) [address] [place] [address] Internal QC OK? Pass [facility] Comment on above: Performed By: #### 1 [id number] #### [facility] (DEFAULT) [address] [place] [address] Progress Note - Nurseon 01-11 Progress Note - Nurse Patient provided with fluids [Electronically Signed on: 02/07/2022 18:30 EDT] __ Salena Ochoa RN [Verified on: 02/07/2022 18:30 EDT] __ Salena Ochoa RN [facility] UA w Culture if Ind Standard on 02-07-2022 Breakpoint UA [facility] Comment on above: Performed By: #### 1 [id number] #### [facility] (DEFAULT) [address] [place] [address] Color (U) Yellow [facility] Comment on above: Performed By: #### 1 [id number] #### [facility] (DEFAULT) [address] [place] [address] Culture? Not Indicated Invalid Interpretation Code [facility] Comment on above: Result Comment: Resu lt created by rule GL_MAGR_ADD_UA_CULT1 Performed By: #### 1 [id number] #### [facility] (DEFAULT) [address] [place] [address] Glucose (U) [Mass/Vol] Negative Normal [facility] Comment on above: Performed By: #### 1 [id number] #### [facility] (DEFAULT) [address] [place] [address] Ketones Ql (U) 40 Normal [facility] Comment on above: Performed By: #### 1 [id number] #### [facility] (DEFAULT) [address] [place] [address] Micro? Not Indicated Invalid Interpretation Code [facility] Comment on above: Result Comment: Resu lt created by rule GL_MAGR_ADD_UA_MICRO Performed By: #### 1 [id number] #### [facility] (DEFAULT) [address] [place] [address] UA Bilirubin SMALL Abnormal [facility] Comment on above: Performed By: #### 1 [id number] #### [facility] (DEFAULT) [address] [place] [address] UA Blood Negative Normal NEGATIVE [facility] Comment on above: Performed By: #### 1 [id number] #### [facility] (DEFAULT) [address] [place] [address] UA Clarity CLEAR Normal CLEAR [facility] Comment on above: Performed By: #### 1 [id number] #### [facility] (DEFAULT) [address] [place] [address] UA Leuk Est Negative Normal NEGATIVE [facility] Comment on above: Performed By: #### 1 [id number] #### [facility] (DEFAULT) [address] [place] [address] UA Nitrite Negative Normal NEGATIVE [facility] Comment on above: Performed By: #### 1 [id number] #### [facility] (DEFAULT) [address] [place] [address] UA pH 6.5 Normal 5-8 [facility] Comment on above: Performed By: #### 1 [id number] #### [facility] (DEFAULT) [address] [place] [address] UA Protein Negative Normal NEGATIVE [facility] Comment on above: Performed By: #### 1 [id number] #### [facility] (DEFAULT) [address] [place] [address] UA Spec Grav >=1.030 Normal 1.001-1.035 [facility] Comment on above: Performed By: #### 1 [id number] #### [facility] (DEFAULT) [address] [place] [address] UA Urobilinogen 1.0 mg/dL Normal 0.2-1.0 [facility] Comment on above: Performed By: #### 1 [id number] #### [facility] (DEFAULT) [address] [place] [address] Urine Source Clean Catch Normal [facility] Comment on above: Performed By: #### 1 [id number] #### [facility] (DEFAULT) [address] [place] [address] Urgent Care Note- Provideron 02-07-2022 Urgent Care [...] glass of water today. Ate McDouble and Estonian fries at 5:30pm. + influenza exposure 4 days ago. ALL: None Meds: Midodrine 5mg TID. PMH: Neurocardiogenic syncope, leaky valve of heart Social: Called off work today from [employer]. Worked 02/04, 02/05, 02/06. Marijuana daily. 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 May return [...] 18:01 E (more content not included)... Normal [facility] Urgent Care [place] 022 Urgent Care Record [facility] ? Urgent Care [address] [place] [address] PATIENT DISCHARGE INSTRUCTIONS Patient Information Name: SENTHIL SCOTT Age: 21 Years Date of : 2000 Reason For Visit: UC - Headache; HEADACHE, NAUSEA Arrival Time: 02/07/2022 17:42:14 Primary Care Physician: Liberty Pierre MD Attending Physician: Cedric Hemphill Comment: Visit Diagnosis: Diagnoses This Visit Aching headache (R51.9) Mild dehydration (E86.0) Tachycardia (R00.0) UC - Headache ([id number]) Viral URI with cough (J06.9) If you [...] any legal documents With: Address: When: Liberty Pierre [address] [place] [address] [place] [address] Business (1) Within 2 to 4 days [...] per current recommendations and guidelines from the [facility] Medical Board of [place]. -Push fluids to stay hydrated. -Use Tylenol [...] else to drop your groceries off and worm picker your medications. I would recommend that [...] and treatment you received today in the [facility] were for an urgent problem and are not intended as complete care. It is important for you to follow up with a doctor, nurse practitioner, or physician?s registrar assistant for ongoing care. If your symptoms become worse or you do not improve as expected and you are unable to reach your usual health ca (more content not included)... Normal [facility] CHLAMYDIA/GONOCOCCUS EMELYN (SW AB/URINE/PAPon 12-11-2021 Chlamydia trachomatis, EMELYN Negative Normal Negative [facility] Comment on above: Performed By: #### C T/NGNA #### [facility] [address] [place] [address] Dr. Soraya Tavarez Neisseria gonorrhoeae, EMELYN Negative Normal Negative [facility] Comment on above: Performed By: #### C T/NGNA #### [facility] [address] [place] [address] Dr. Sroaya Tavarez VAGINITIS/VAGINOSIS DNA PROB Jon 12-10-2021 Elvia species Negative Normal Negative [facility] [place] Comment on above: Performed By: #### V AGINT #### [facility] [address] [place] [address] Dr. Soraya Tavarez Gardnerella vaginalis Negative Normal Negative [facility] Comment on above: Performed By: #### V AGINT #### [facility] [address] [place] [address] Dr. Soraya Tavarez Trichomonas vaginalis Negative Normal Negative [facility] Comment on above: Performed By: #### V AGINT #### [facility] [address] [place] [address] Dr. Soraya Tavarez US PELVIS TRANSVAGon 022 [...] by: CLARY LOYD Date: 2021-12-08 14:57 [facility] CORTISOL 11.0 mcg/dL Normal [facility] Comment on above: Result Comment: Refe rence Range: AM 6.0-23.0 mcg/dL PM 0.0-9.0 mcg/dL Performed By: #### 3 0209 #### [facility] [address] [place]GLOBULIN [place] [id number] Thyroglobulin Ab Qn [IU]/mL Normal 0.0-4.0 [facility] Comment on above: Result Comment: INTE RPRETIVE INFORMATION: Thyroglobulin Antibody A value of 4.0 IU/mL or less indicates a negative result for thyroglobulin antibodies. The Thyroglobulin Antibody assay is being performed using the [employer] Dx[employer] method. Performed By: [facility] [address] [place] [address] Train Braker: Kassy Pickens MD TPO ANTIBODY [id number] 021 TPO ANTIBODY 0.3 IU/mL Normal 0.0-9.0 [facility] Comment on above: Result Comment: Perf ormed By: [facility] [address] [place] [id number] Train Braker: Kassy Pickens MD TSH RECEPTOR AB [id number] TSH RECEPTOR AB <0.90 Normal <=1.75 [facility] Comment on above: Result Comment: Perf ormed By: [facility] [address] [place] [id number] Train Braker: Kassy Pickens MD Vital Signs Date Time Vital Sign Value Performing Clinician Facility 2023 09:32-0500 Body mass index (BMI) [Ratio] 24.2 kg/m2 Wesly Sue DO Work Phone: [facility] [employer] 2023 09:32-0500 Body weight 63.96 kg Wesly Linette DO Work Phone: [facility] [employer] 2023 09:32-0500 Diastolic blood pressure 70 mm[Hg] Wesly Linette DO Work Phone: [facility] 2023 09:32-0500 Systolic blood pressure 110 mm[Hg] Wesly Linette DO Work Phone: [facility] 10-04-2023 09:45-0500 Body height 162.56 cm Liberty Pierre Other [employer] Other 10-04-2023 09:45-0500 Body mass index (BMI) [Ratio] 23.51 kg/m2 Liberty Pierre Other [employer] Other 10-04-2023 09:45-0500 Body temperature 97.8 [degF] Liberty Pierre Other [employer] Other 10-04-2023 09:45-0500 Body weight 62.14 kg Liberty Pierre Other [employer] Other 10-04-2023 09:45-0500 Diastolic blood pressure 80 mm[Hg] Liberty Pierre Other [employer] Other 10-04-2023 09:45-0500 SaO2% (BldA) [Mass fraction] 98 % Liberty Pierre Other [employer] Other 10-04-2023 09:45-0500 Systolic blood pressure 108 mm[Hg] Liberty Pierre Other [employer] Other 09-18-2023 13:08-0500 Body height 162.6 cm Arlette Mustafa MD Work Phone: [employer] 09-18-2023 13:08-0500 Body mass index (BMI) [Ratio] 23.79 kg/m2 Arlette Mustafa MD Work Phone: [employer] 09-18-2023 13:08-0500 Body weight 62.87 kg Arlette Mustafa MD Work Phone: [employer] 09-18-2023 13:08-0500 Diastolic blood pressure 64 mm[Hg] Arlette Mustafa MD Work Phone: [employer] 09-18-2023 13:08-0500 Heart rate 89 /min Arlette Mustafa MD Work Phone: [employer] 09-18-2023 13:08-0500 Systolic blood pressure 109 mm[Hg] Arlette Mustafa MD Work Phone: [employer] 07-22-2023 10:10-0500 Body height 162.56 cm Tiesha Pittsmond Other [employer] Other 07-22-2023 10:10-0500 Body mass index (BMI) [Ratio] 20.94 kg/m2 Tiesha Pittsmond Other [employer] Other 07-22-2023 10:10-0500 Body temperature 98.1 [degF] Tiesha Pittsmond Other [employer] Other 07-22-2023 10:10-0500 Body weight 55.34 kg Tiesha Pittsmond Other [employer] Other 07-22-2023 10:10-0500 Respiratory rate 18 /min Tiesha Juliana Other [employer] Other 07-22-2023 10:10-0500 SaO2% (BldA) [Mass fraction] 98 % Tiesha Juliana Other [employer] Other 05-09-2023 14:30-0400 Body height 162.56 cm Liberty Pierre Other [employer] Other 05-09-2023 14:30-0400 Body mass index (BMI) [Ratio] 17.64 kg/m2 Liberty Pierre Other [employer] Other 05-09-2023 14:30-0400 Body weight 46.63 kg Liberty Pierre Other [employer] Other 05-09-2023 14:30-0400 Diastolic blood pressure 64 mm[Hg] Liberty Pierre Other [employer] Other 05-09-2023 14:30-0400 Systolic blood pressure 104 mm[Hg] Liberty Pierre Other [employer] Other 10-21-2022 12:30-0500 Body height 162.56 cm Liberty Pierre Other [employer] Other 10-21-2022 12:30-0500 Body mass index (BMI) [Ratio] 18.71 kg/m2 Liberty Pierre Other [employer] Other 10-21-2022 12:30-0500 Body weight 49.44 kg Liberty Pierre Other [employer] Other 10-21-2022 12:30-0500 Diastolic blood pressure 60 mm[Hg] Liberty Pierre Other [employer] Other 10-21-2022 12:30-0500 SaO2% (BldA) [Mass fraction] 97 % Liberty Pierre Other [employer] Other 10-21-2022 12:30-0500 Systolic blood pressure 108 mm[Hg] Liberty Pierre Other [facility] [employer] Other 10-17-2022 17:39-0500 Diastolic blood pressure 53 mm[Hg] MD Liberty Pierre Work Phone: [facility] 10-17-2022 17:39-0500 Heart rate 95 /min MD Liberty Pierre Work Phone: [facility] 10-17-2022 17:39-0500 Respiratory rate 16 /min MD Liberty Pierre Work Phone: [facility] 10-17-2022 17:39-0500 SaO2% (BldA) [Mass fraction] 98 % MD Liberty Pierre Work Phone: [facility] 10-17-2022 17:39-0500 Systolic blood pressure 102 mm[Hg] MD Liberty Pierre Work Phone: [facility] 10-17-2022 15:42-0500 Body height 162.56 cm MD Liberty Pierre Work Phone: [facility] 10-17-2022 15:42-0500 Body temperature 97.8 [degF] MD Liberty Pierre Work Phone: [facility] 10-17-2022 15:42-0500 Body weight 50.1 kg MD Liberty Pierre Work Phone: [facility] 05-31-2022 14:29-0400 Blood Pressure Location Sal D[facility] 05-31-2022 14:29-0400 Diastolic blood pressure 60 mm[Hg] Sal D[facility] 05-31-2022 14:29-0400 Heart rate 68 /min Sal DOW[facility] 05-31-2022 14:29-0400 Respiratory rate 16 /min Sal DOW[facility] 05-31-2022 14:29-0400 Systolic blood pressure 108 mm[Hg] Sal DOWNS [facility] Encounters Encounter Date Encounter Type Care Provider Facility Start: 12-11-2023 End: 12-11-2023 ambulatory STEPHEN FOX Not Available Start: 11-27-2023 End: 11-27-2023 ambulatory WESLY LINETTE Not Available Start: 11-20-2023 End: 11-20-2023 ambulatory WESLY LINETTE Not Available Start: 11-13-2023 End: 11-13-2023 ambulatory WESLY LINETTE Not Available Start: 10-27-2023 End: 10-27-2023 [facility] Start: 10-27-2023 End: 10-27-2023 Emergency department patient visit CONCHA YEBOAH [facility] Start: 2023 End: 2023 ambulatory WESLY LINETTE Not Available Start: 2023 End: 2023 flow sheet Wesly Linette DO Work Phone: [facility] Comment on above: Third trimester preg mamadou Start: 10-09-2023 End: 10-09-2023 ambulatory STEPHEN FOX Not Available Start: 10-04-2023 End: 10-04-2023 ambulatory Liberty Pierre Other [employer] Other Start: 10-04-2023 Office outpatient vi sit 15 minutes Liberty Pierre [facility] Start: 09-25-2023 End: 09-25-2023 ambulatory WESLY LINETTE Not Available Start: 09-21-2023 End: 09-21-2023 ambulatory Liberty Pierre Other [employer] Other Start: 09-21-2023 Office outpatient vi sit 15 minutes Liberty Pierre [facility] Start: 09-18-2023 End: 09-19-2023 ambulatory WESLY R LINETTE [facility] Start: 09-18-2023 End: 09-18-2023 Office outpatient visit 25 minutes Arlette Mustafa MD Work Phone: [facility]- Medicine at [facility] Comment on above: Heartburn during pre gnancy in third trimester (Primary Dx); Cardiovascular disease of mother in , antepartum, third trimester; Postural orthostatic tachycardia syndrome; cardiac echogenic focus, antepartum, single or unspecified fetus Start: 08-28-2023 End: 08-28-2023 ambulatory STEPHEN FOX Not Available Start: 07-27-2023 ambulatory MELINA HAMM [facility] Start: 07-24-2023 End: 07-24-2023 ambulatory STEPHEN FOX Not Available Start: 07-22-2023 End: 07-22-2023 ambulatory Tiesha Andrews Other [employer] Other Start: 07-22-2023 Office outpatient vi sit 15 minutes Tiesha Andrews [facility] Start: 05-25-2023 End: 05-25-2023 ambulatory Liberty Pierre Other [employer] Other Start: 05-25-2023 Telephone encounter Liberty Pierre [facility] Start: 05-09-2023 End: 05-09-2023 ambulatory Liberty Pierre Other [employer] Other Start: 05-09-2023 Office outpatient vi sit 15 minutes Liberty Pierre [facility] Start: 11-02-2022 End: 11-03-[address] LIBERTY PIERRE Facility: Start: 10-21-2022 End: 10-21-2022 ambulatory Liberty Pierre Other [employer] Other Start: 10-21-2022 Office outpatient vi sit 15 minutes Liberty Pierre [facility] Start: 10-17-2022 End: 10-17-2022 Emergency department patient visit Kaci Morales Facility:[facility] Start: 10-17-2022 End: 10-17-2022 Emergency department patient visit MD Liberty Pierre Work Phone: [facility] Work Phone: Start: 10-04-2022 End: 10-05-[address] CLARY LOYD Facility:[facility] Start: 08-16-2022 End: 08-17-[address] CLARY LOYD Facility:[facility] Start: 07-26-2022 End: 07-27-[address] CLARY LOYD Facility:[facility] Start: 07-19-2022 Well child visit Liberty Pierre Other [employer] Other Start: 07-12-2022 End: 07-13-[address] LIBERTY PIERRE Facility:[facility] Start: 05-31-2022 End: 06-01-2022 ambulatory Wesly SUE Facility: [facility] Start: 05-31-2022 End: 05-31-2022 Patient encounter procedure Sal DOWNS [facility] Start: 05-02-2022 ambulatory LIBERTY PIERRE PROVIDER Facility:[facility] Start: 12-08-2021 End: 12-08-[address] LIBERTY [...] Phone: Start: 10-17-2022 Plain chest X-ray MD Kody Pierre Work Phone: Incision and drainag e of axilla Sal DOWNS Plan of Treatment Date Care Activity Detail Author Start: 07-11-2026 Screening for malignant neoplasm of cervix Pap Smear [facility] Start: 09-18-2024 Adult BMI Screening Adult BMI Screen ing [facility] Start: 09-18-2024 Tobacco Screening Tobacco Screening [facility] Start: 12-06-2023 End: 12-06-2023 Patient encounter procedure 12/06/2023 10:30 AM EDT Office Visit [facility] [address] [place] [address] [phone] Genoveva Bailon MD [address] [place] [address], [address], [address] [place] [phone] [facility] Start: 11-13-2023 End: 11-13-2023 Patient encounter procedure 11/13/2023 1:40 PM EST Routine [facility] [address] [place] [address] Wesly Sue DO [address] [place] [address] [facility] Start: 10-16-2023 End: 10-16-2023 Telemedicine consultation with patient 10/16/2023 2:30 PM EST Telemedicine Maternal- Medicine at [address] [phone] Arlette Mustafa MD [address] [place] [id number] [facility] Start: 09-18-2023 End: 09-18-2024 Echo complete W/O contrast Echo complete W/O contrast Echocardiography Routine Cardiovascular disease of mother in , antepartum, third trimester Postural orthostatic tachycardia syndrome cardiac echogenic focus, antepartum, single or unspecified fetus Heartburn during in third trimester Expected: 09/18/2023, Expires: 09/18/2024 [facility] Comment on above: Expected: 09/18/2023 , Expires: 09/18/2024 Start: 05-12-2023 Influenza vaccination Influenza Vacc ine [facility] Start: 10-17-2022 Bacteria identified in Urine by Culture [facility] Start: 2019 DTaP,Tdap and Td Vaccines (1 - Tdap) DTaP,Tdap and Td Vaccines (1 - Tdap) [facility] Start: 2012 Depression Screening Depression Scre ening [facility] End: 09-17-2024 ECG 12 lead ECG 12 lead ECG Routine Cardiovascular disease of mother in , antepartum, third trimester Postural orthostatic tachycardia syndrome cardiac echogenic focus, antepartum, single or unspecified fetus Heartburn during in third trimester 1 Occurrences starting 09/18/2023 until 09/17/2024 [facility] Work Phone: Comment on above: 1 Occurrences starti ng 09/18/2023 until 09/17/2024 Patient Education Head Injury in Adults [facility] Work Phone: Patient referral [facility] Work Phone: Immunizations Immunization Date Immunization Notes [facility] meningococcal oligosaccharide (groups A, C, Y and W-135) diphtheria toxoid conjugate vaccine (MCV4O) Liberty Pierre Other [employer] Other Payers Date Payer Category Payer Medicaid [employer] [place] [id number] 2023-Present [phone] [address] [place] [address] [id number] 2023 Unknown [id number] [id number]. [id number] 2023 Medicaid [id number] [id number] 2022 Self-pay [id number] 2000 Unknown [id number] 2.16.840.1.581485.3.579.2.727 2000 Unknown [id number] 2.16.840.1.715729.3.579.2.593 2000 Unknown [id number] 2.16.840.1.108654.3.579.2.593 2000 Unknown [id number] 2.16.840.1.137673.3.579.2.593 2000 Unknown [id number] 2.16.840.1.769411.3.579.2.593 2000 Unknown [id number] 2.16.840.1.499881.3.579.2.593 2000 Unknown [id number] 2.16.840.1.904265.3.579.2.593 2000 Unknown [id number] 2.16.840.1.238787.3.579.2.593 2000 Unknown [id number] 2.16.840.1.146797.3.579.2.1286 2000 Unknown [id number] 2.16.840.1.138282.3.579.2.1286 2000 Unknown [id number] 2.16.840.1.342875.3.579.2.1286 2000 Unknown [id number] 2.16.840.1.052794.3.579.2.1286 2000 Unknown [id number] 2.16.840.1.878266.3.579.2.1286 2000 Unknown [id number] 2.16.840.1.308406.3.579.2.1286 2000 Unknown [id number] 2.16.840.1.791348.3.579.2.1259 2000 Unknown [id number] 2.16.840.1.636004.3.579.2.1259 2000 Unknown [id number] 2.16.840.1.286846.3.579.2.1259 2000 Unknown [id number] 2.16.840.1.925199.3.579.2.1259 2000 Unknown [id number] 2.16.840.1.423917.3.579.2.1259 2000 Unknown [id number] 2.16.840.1.333549.3.579.2.1259 2000 Unknown [id number] 2.16.840.1.013242.3.579.2.1259 2000 Unknown [id number] 2.16.840.1.285833.3.579.2.1259 2000 Unknown [id number] 2.16.840.1.436045.3.579.2.1259 1979 Unknown [id number] 2.16.840.1.124655.3.579.2.727 1959 Unknown [id number] Unknown [id number] 2.16.840.1.800761.3.579.2.531 Unknown [id number] Social History Date Type Detail Facility Start: 05-31-2022 End: 05-22-2023 Tobacco smoking status Never smoked tobacco (finding) [facility] Tobacco smoking status Never [facility] Start: 05-22-2023 End: 09-18-2023 Sex Assigned At Female [facility] Start: 10-17-2022 Tobacco smoking stat us NHIS Smoker (finding) [facility] Start: 2000 Sex Assigned At Female [facility] Start: 05-22-2023 End: 06-16-2023 Tobacco use and exposure Smokeless tobacco non-user [facility] Start: 09-18-2023 End: 2023 Alcohol intake Lifetime non-drinker (finding) [facility] Start: 05-22-2023 End: 09-18-2023 [facility] of [facility] Start: 03-16-2023 [facility] Start: 2000 [facility] Functional Status Date Assessment Result Facility 05-31-2022 Functional Status N/A [facility] Clinical Notes 02-07-2022 to 2023 Lizette Bautista, KODY - 2023 9:30 AM EST Note Date [...] nursing note reviewed. Exam conducted with a donor floor technician present. Patient presents today for a routine [...] Wesly Sue DO documented in this encounter [facility] 10-04-2023 Evaluation note Encounter Date Diagnosis Assessment Notes Sep, Acute non-recurrent maxillary sinusitis (ICD-10 - J01.00) Finish antibiotics WIll notify her OB work note given. [employer] Other 01-11-2024 Evaluation note* Encounter Date Diagnosis Assessment Notes Treatment Notes Treatment Clinical Notes Sep, Viral URI (ICD-10 - J06.9) Ok to stop azithromycin as she likely has a viral infection. Recommend halls and robitussin for cough. Pt requests letter to stay out of hot kitchen at [facility]. Sep, Tachycardia (ICD-10 - R00.0) Advised her to stay hydrated. She doesn't know how or have a smart watch to track her pulse at home. Advised to come in for vitals, discuss w Dr. Sue next week. She will have her mom check her pulse. Noted history of NCS. [employer] Other 01-08-2024 History of Present illness Narrative* [...] was 32 minutes. 24 minutes were direct [id number] for counseling and coordination of care during visits itself. An additional 3 minutes or for same day preparation to see the patient. Another 6 minutes were needed were needed to prepare report and or to perform other duties to complete visit. Thank you for sending this patient. Arlette Mustafa MD Maternal Medicine Professor, [facility] [phone]- Office [phone]- Personal Cell Phone Office Note: Patient Active [...] had neurocardiogenic syncope. The patient saw a grocery sacker that recommended EKG and echocardiogram. The problem list indicates a shortened MN interval. The patient is unaware of pre-excitation [...] wanted the patient to be seen by grocery sacker. If this diagnosis is not want the [...] of affects and embryo affects. We reviewed [employer] database. Case reports in human have been [...] considered clinically significant by most. Most recent [facility] guidelines recommend cell free DNA screening as [...] care [facility]. [facility] NoteSubjective Senthil Scott is a 22 y.o. 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 Social [...] No Known Allergies Medications Current Outpatient Medications: [id number]- 29-1-400 mg combo pack,tablet and cap,DR, Take [...] and other tests EKG 07/17/23: NSR, short MN interval Assessment/Plan Diagnoses and all orders for [...] Ambulatory referral to Cardiac Electrophysiology; Future Shortened MN interval Pre-syncope - Will order an echocardiogram - she has known vasovagal syncope Previously under control with midodrine daily I discussed with Dr. Max, who is our expert on syncope and vasovagal syncope He has used midodrine in patients and believes it is safe He also felt that symptoms should gradually improve in the next few weeks 2. Short MN interval on EKG: Consider event monitor and EP evaluation if having palpit (more content not included)...[facility]11-11-2023 Evaluation note* Encounter Date Diagnosis Assessment Notes [...] Robitussin for the cough. Follow-up with your METEOROLOGICAL ENGINEER if no improvement in 2 to 3 days. Off work tomorrow and Monday, may return to work on Monday. Jul, Sore throat (ICD-10 - J02.9) [employer] Other 08-29-2023 Evaluation note* Encounter Date Diagnosis Assessment Notes Treatment Notes Treatment Clinical Notes Apr, Mild intermittent reactive airway disease without complication (ICD-10 - J45.20) Discussed her symptoms and agreed to HFA prn. Apr, Neurocardiogenic syncope (ICD-10 - R55) Midodrine is catagory C and she has been off of it for a few weeks. Will not refill and notify Dr. Sue. [employer] Other 02-10-2023 Evaluation note* Encounter Date Diagnosis Assessment Notes Treatment Notes Treatment Clinical Notes Oct, Neurocardiogenic syncope (ICD-10 - R55) Increased dose of med. Has been through workup with [facility]. Will refer to Neurology to r/o seizure component. Note given for work. [employer] Other 01-24-2023 NotePROCEDURE: XR TIB_FIB LT 2V HISTORY: Pain in lower limb ; persistent mid lower leg pain; follow-up stress reaction COMPARISON: XR tib-fib left 08/16/2022 FINDINGS: BONES:No fracture, dislocation, or periosteal reaction. SOFT TISSUES:No visible soft tissue swelling. EFFUSION:None visible. OTHER: Negative. IMPRESSION: 1. No suspicious bone abnormality. Electronically authenticated by: CLARY LOYD Date: 2022-10-04 15:34[facility]12-06-2022 NotePROCEDURE: XR TIB_FIB LT 2V, [...] Electronically authenticated by: CLARY LOYD Date: 2022-08-16 09:39[facility]12-06-2022 NotePROCEDURE: XR TIB_FIB LT 2V, [...] Electronically authenticated by: CLARY LOYD Date: 2022-08-16 09:39[facility]11-15-2022 NotePROCEDURE: XR ANKLE LT MIN 3 V HISTORY: Pain of left ankle joint ; follow-up ankle sprain COMPARISON: XR ankle left 07/12/2022 FINDINGS: BONES:No fracture, acute abnormality, or significant arthropathy. SOFT TISSUES:No visible soft tissue swelling. EFFUSION:None visible. OTHER: Negative. IMPRESSION: 1. No acute bone abnormality or appreciable degenerative changes. Electronically authenticated by: CLARY LOYD Date: 2022-07-26 15:21[facility]11-01-2022 NotePROCEDURE: XR ANKLE LT MIN 3 V COMPARISON: None. HISTORY: Injury of left ankle FINDINGS: BONES:No fracture, acute abnormality, or significant arthropathy. SOFT TISSUES:Negative. No visible soft tissue swelling. EFFUSION:None visible. OTHER: Negative. IMPRESSION: No acute disease. Electronically authenticated by: CHERRIE FLORES Date: 2022-07-12 13:06[facility]09-20-2022 NoteChief Complaint consultation for abdominal [...] Daily, # 30 cap(s), Refills(s) 3, Pharmacy: [id number], 163.8, cm, 05/31/22 14:35:00 EDT, Height/Length Dosing, 53.6, kg, 05/31/22 14:35:00 EDT, Weight Dosing 2. Marijuana use, continuous (F12.90: Cannabis use, unspecified, uncomplicated) see # 1 Ordered: omeprazole, 20 mg = 1 cap(s), Oral, Daily, # 30 cap(s), Refills(s) 3, Pharmacy: [id number], 163.8, cm, 05/31/22 14:35:00 EDT, Height/Length Dosing, 53.6, kg, 05/31/22 14:35:00 EDT, Weight Dosing 3. Anxiety (F41.9: Anxiety disorder, unspecified) see # 1 Ordered: omeprazole, 20 mg = 1 cap(s), Oral, Daily, # 30 cap(s), Refills(s) 3, Pharmacy: [id number], 163.8, cm, 05/31/22 14:35:00 EDT, Height/Length [...] refills Allergies Macrobid (Vomi (more content not included)...[facility]:Result Comment: Electronically Signed By: VICTORIA FRANK, Sal Cam\Date and Time Signed: 05/31/22 17:28 [id number] NotePatient Education Materials Follows:Disease COVID-19: What to [...] yourself. Get rest and stay hydrated. Take [id number]-[id number] medicines, such as acetaminophen, to help you [...] to your local emergency facility: Notify the cinder crane operator that you are seeking care for [...] household. ? You can visit your state, [facility], local, and [facility] department's website to look for the latest [...] clean your hands with an alcohol-based hand yard operator that contains at least 60% alcohol. Clean your hands often ? Wash your hands often with soap and water for at least 20 seconds. This is especially important after blowing your nose, coughing, or sneezing; going to the bathroom; and before eating (more content not included)...[facility] Evaluation + Plan note No data available for this section [facility] Evaluation noteNo assessment information available [facility] Work Phone: Evaluation noteNo Information[facility] [employer] Other Evaluation note* Diagnosis Heartburn during in third trimester- Primary Cardiovascular disease of mother in , antepartum, third trimester Postural orthostatic tachycardia syndrome Unspecified tachycardia cardiac echogenic focus, antepartum, single or unspecified fetus documented in this encounter [facility] [employer] [facility]* Diagnosis Third trimester state, incidental documented [...] ARM 2016 Hospitalization History SEE SURGICAL HX [facility] [employer] Other Hospital Discharge instructions No data available for this section [facility] Discharge instructions Additional Instructions Push fluids Rest Avoid marijuana use Follow-up with your doctor call tomorrow for appointment Return if any problems persist or worsen including chest pain, shortness of breath, numbness, tingling, unilateral weakness or any other concern Take antibiotic as instructed until [facility] Work Phone: InstructionsNot on filedocumented in this encounter [facility] [employer] [facility] note No data available for this section [facility] Summary Purpose Family History No Family History [...] Echo complete W/O contrast Arlette Mustafa MD [address] [place] [address] Referral ID Status Reason Start Date Expiration Date V isits Requested Visits Authorized [id number] Pending Review 09/18/2023 09/17/2024 1 1 Specialty Diagnoses / Procedures Referred By Contac t Referred To Contact Diagnoses Cardiovascular disease of mother in , antepartum, third trimester Postural orthostatic tachycardia syndrome cardiac echogenic focus, antepartum, single or unspecified fetus Heartburn during in third trimester Procedures ECG 12 lead Arlette Mustafa MD [address] [place] [address] Referral ID Status Reason Start Date Expiration Date V isits Requested Visits Authorized [id number] Pending Review 09/18/2023 09/17/2024 1 1 Reason 11/23/22 Possible seizure - labs and CT at Replaced By [facility]. Diagnosis 1 Neurocardiogenic syn cope (R55) Referral Organization [facility] Gabo boykin Referring Provider First Name Liberty Referring Provider Last Name Ignacio Referring Provider Specialty [facility] Referred Organization [facility] Referred Provider Avril Irving Referred Address [address] [place] [phone] Referred Provider Specialty Neurology Referral Priority Routine [...] section and content) DATE CREATED AUTHOR 12/23/2020 [facility] DATE CREATED AUTHOR AUTHOR'S DAQUAN ATLIMA 02/10/2022 [facility] DATE CREATED AUTHOR AUTHOR'S ORGANIZ ATION 06/11/2022 [facility] DATE CREATED AUTHOR AUTHOR'S ORGANIZ ATION 10/25/2022 [facility] DATE CREATED AUTHOR AUTHOR'S ORGANIZ ATION 11/06/2022 [facility] DATE CREATED AUTHOR AUTHOR'S ORGANIZ ATION 08/17/[address] [facility] DATE CREATED AUTHOR AUTHOR'S ORGANIZ ATION 09/24/2023 [facility] DATE CREATED AUTHOR AUTHOR'S ORGANIZ ATION 10/29/2023 [facility] DATE CREATED AUTHOR AUTHOR'S ORGANIZ ATION 12/12/2023 [facility] EPIC Care Team (unrecognized sect ion and content) Team Status: Inactive Member Role Status Dates Liberty Pierre MD Primary Care Provider Active Kaci Morales APRN Emergency Provider Active Team Status: Active Member Role Status Dates Liberty Pierre MD Primary Care Provider Active Graduate Nurse Relationship Specialty [place] [address] [place] [phone] PCP - General Family Medicine 05/04/23 Goals [...] BE BASED ON THE PRIMARY CLINICAL RECORDS. [employer] provides no warranty or guarantee of the accuracy or completeness of information in this document.
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
[2024-01-31 20:30] VITALS: PULSE 80; O2SAT 96
== END 2024-01-31 20:30 | disposition home or self-care (01) ==
PROVIDERS: Emergency Provider Emergency Medicine; PCP Family Medicine
DX: S00.83XA Contusion of other part of head, initial encounter (principal); S80.01XA Contusion of right knee, initial encounter; S70.01XA Contusion of right hip, initial encounter; S63.616A Unspecified sprain of right little finger, initial encounter; V43.62XA Car passenger injured in collision with other type car in traffic accident, initial encounter; Z79.899 Other long term (current) drug therapy; Z87.891 Personal history of nicotine dependence
CPT/HCPCS: 70486; 73140; 73502; 73564; 99284

== ENCOUNTER 2024-08-13 10:36 | Emergency (ER) | payer MEDICAID, SELFPAY ==
[2024-08-13 10:42] VITALS: BP 109/61; PULSE 70; TEMP 36.8; O2SAT 96; BMI 18.3
--- OUTSIDE RECORDS SUMMARY | 2024-08-13 10:52 | XMS_ITS | CCD ---
Author Organization [facility] Care Team Providers Care Cooker Loader Name Role Phone LIBERTY PIERRE Primary Care [...] Unavailable PIERRE, DR LIBERTY Ye Consulting Unavailable Ignacio, Liberty Unavailable Tiesha Andrews Unavailable MELINA HAMM Attending Unavailable Unavailable Primary Care Provider UnavailARLETTE Sidhu Attending Unavailable LINETTE, WESLY R Referring Unavailable LINETTE, WESLY R Referring Unavailable Liberty Pierre MD Primary Care Provider TANYA JUAN Admitting Unavailable TANYA JUAN Attending Unavailable DARCI, CONCHA YEBOAH Attending UnavailCONCHA Henderson Referring Unavailabl e LINETTE, WESLY Attending Unavailable DOMINIQUE, STEPHEN Attending Unavailable LINETTE, WESLY Attending Unavailable LINETTE, WESLY Attending Unavailable LINETTE, WESLY Attending Unavailable LINETTE, WESLY Attending Unavailable DOMINIQUE, STEPHEN Attending Unavailable DOMINIQUE, STEPHEN Attending Unavailable DOMINIQUE, STEPHEN Attending Unavailable DOMINIQUE, STEPHEN Attending Unavailable LINETTE, WESLY Attending Unavailable Allergies Allergy Classification Reported Allergen(s) Allergy Type Date of Onset Reaction(s) Facility (8 sources) cefdinir; Translations: [cefdinir] Drug Allergy Vomiting (disorder) [place] (8 sources) NITROFURANTOIN, MACROCRYSTALS / Nitrofurantoin, Monohydrate; Translations: [nitrofurantoin] Drug Allergy Vomiting (disorder) General [facility] [place] (1 source) Penicillins Drug allergy (disorder) 11-01-19 22 [facility] Repository (5 sources) patient allergy list reviewed by nurse or physicia Propensity to adverse reactions 04-09-20 19 Comment:Done [facility]ist Other (5 sources) Allergies Reconciled Propensity to adverse reactions 07-26-20 21 Unknown [facility] Other (2 sources) cefdinir Drug Allergy 07-11-20 23 Unknown [facility] Work Phone: (2 sources) Nitrofurantoin Drug Allergy 07-11-20 23 Unknown [facility] Medications Current Medications Medication Drug Class(es) Dates Sig (Normalized) Sig (Original) [id number] 200 actuat albuterol 0.09 mg/actuat metered dose [...] 14, 2020 12:00am [facility] Midodrine HCl 5 [...] Start: 05-31-2022 take 1 capsule by mo [facility] once daily omeprazole 20 mg Cap-DR 20 mg = 1 cap(s), Oral, Daily, # 30 cap(s), Refills(s) 3, Pharmacy: [facility], 163.8, cm, 05/31/22 14:35:00 EDT, Height/Length [...] morning. 90 capsule 3 09/12/2023 09/11/2024 Active Skrmtz-XcQue-HwFoi-FA-CA- Blossom (SC 400 ec) 29-1-200 & 400 MG (DR) misc (2 sources) take 1 tablet by mouth in the morning Gyhhmd-IpTbo-FjOwj-FA-CA -Blossom (SC 400 ec) 29-1-200 & 400 MG (DR) misc Take 1 tablet by mouth in the morning. 0 Active Vit w/ Fe Bisg-FA (5 sources) Vit w/ Fe Bisg-FA Active promethazine hydrochloride 12.5 mg oral tablet (2 sources) Phenothiazine Start: 08-28-20 23 End: 11-26-19 24 take 1 tablet by [...] disease (1 source) Atherosclerotic heart disease of [place] coronary artery without angina pectoris; Translations: [Atherosclerotic heart disease of [place] coronary artery without angina pectoris] Onset: 4 [...] (5 sources) Dysmenorrhea; Translations: [Dysmenorrhea, unspecified] Onset: 8 Chronic Nonspecific chest pain (6 sources) Chest [...] UA Clear [facility] Color, UA Yellow [facility] Glucose, UA Negative Negative - 1999(110) ++++ mg/dL [facility] Interpretation and review of laboratory results Normal [facility] Ketones, UA Negative Negative - 160(16) ++++ mg/dL [facility] Leukocytes, UA Negative Negative - 500+++ Elijah/mcL [facility] Nitrite, UA Negative Negative - Positive [facility] pH, UA 6.0 5 - 9 [facility] Protein, UA Negative Negative - 1999(20) ++++ mg/dL [facility] Spec Grav, UA 1.025 1 - 1.03 [facility] Urobilinogen, UA 0.2 0.2 - 12 mg/dL [facility] Healthcare 36on 08-15-2023 36 Msg left on patients phone today regarding telehealth. Normal [facility] Office Visiton 07-27-2023 Follow-up visit [id number] Senthil Scott 2000 F Date Provider Department Center 07/27/2023 289-MELINA HAMM [facility] No family history on file Level of Service:31565 SC OFFICE/OUTPATIENT ESTABLISHED MOD MDM 30-39 MIN () Reason for Visit and Comments: Follow-up [814042] - [employer] LEAKY VALVE, HYPOTENSION Syncope [506] Normal [facility] COVID Quick Testingon 2022 Result Negative [facility] Other Quick Strepon 07-22-2023 S. pyogenes Org specific cx Ql (Throat) Negative [employer] Other Quick Strep [employer] [facility]ist Other MRI LEG LT WO CONon 11-03-19 [...] CHERRIE ROOT Date: 2022-11-02 23:11 Normal [facility] Amphetamine Screen Ql (U)Ord ered By: Kaci Morales on 10-17-2022 Amphetamines Ql (U) Negative Negative [facility] Automated erythrocytes count in urine sediment (number/area)Ordered By: Kaci Morales on 10-17-2022 RBC Auto (Urine sed) [#/Area] 20-49 [HPF] 0-4 [facility] Automated leukocytes count i n urine sediment (number/area)Ordered By: Kaci Morales on 10-17-2022 WBC Auto (Urine sed) [#/Area] 20-49 [HPF] 0-4 [facility] Automated urine hyaline cast s count (number/volume)Ordered By: Kaci Morales on 10-17-2022 Hyaline casts Auto (U) [#/Vol] None seen [LPF] 0-1 [facility] Automated urine sediment joe cium oxalate crystal count by microscopy (number/high powOrdered By: Kaci Morales on 10-17-2022 Calcium oxalate crystals LM.HPF (Urine sed) [#/Area] 3+ [HPF] [facility] Barbiturates [Presence] in U rineOrdered By: Kaci Morales on 10-17-2022 Barbiturates Ql (U) Negative Negative [facility] Basic Metabolic Panelon Anion gap [Moles/Vol] 13.2 mmol/L Normal 6.0-15.0 [facility] Comment on above: Performed By: #### H S TROP, BMP, CBC #### [facility] [address] Calcium [Mass/Vol] 9.5 mg/dL Normal 8.2-10.2 [facility] Comment on above: Performed By: #### H S TROP, BMP, CBC #### [facility] [address] [place] [address] [place] Chloride [Moles/Vol] 103 mmol/L Normal 95-114 [facility] Comment on above: Performed By: #### H S TROP BMP, CBC #### [facility] [address] CO2 [Moles/Vol] 25.5 mmol/L Normal 22.0-30.0 [facility] Comment on above: Performed By: #### H S TROP BMP, CBC #### [facility] [address] Creatinine [Mass/Vol] 0.80 mg/dL Normal 0.44-1.03 [facility] Comment on above: Performed By: #### H S TROP BMP, CBC #### [address] Creatinine Clr Calc Pharmacy 87.98 [facility] Comment on above: Result Comment: PERF ORMED BY: [place] [address] PATHOLOGIST ASSISTANT TO THE DIRECTOR ZEB BASURTO M.D. Performed By: #### H S TROP BMP, CBC #### [address] Estimated GFR ( Adelita > 60 [facility] Comment on above: Result Comment: GFR estimated reference range: According to KDOQI guidelines, <60 ml/min/1.73m2 is sufficient to diagnose a patient with chronic kidney disease. Performed By: #### H S TROP BMP, CBC #### [facility] [address] [place] [address] Estimated GFR (Non- Am > 60 [facility] Comment on above: Performed By: #### H S TROP BMP, CBC #### [facility] [address] [place] [address] Glucose [Mass/Vol] 118 mg/dL High 70-100 [facility] Comment on above: Result Comment: [facility] Glucose Reference Range is dependent on time and content of last meal. Glucose of more than 200 mg/dL in a nonstressed, ambulatory subject supports the diagnosis of Diabetes Mellitus. ADA recommended reference range Performed By: #### H S TROP, BMP, CBC #### [facility] [address] Potassium [Moles/Vol] 3.7 mmol/L Normal 3.5-5.1 [facility] Comment on above: Performed By: #### H S TROP, BMP, CBC #### [facility] [address] Sodium [Moles/Vol] 138 mmol/L Normal 136-146 [facility] Comment on above: Performed By: #### H S TROP, BMP, CBC #### [facility] [address] Urea nitrogen [Mass/Vol] 10 mg/dL Normal 9-23 [facility] Comment on above: Performed By: #### H S TROP, BMP, CBC #### [facility] [address] [place] [address] [place] Basophils Auto (Bld) [#/Vol] Ordered By: Kaci Morales on 10-17-2022 Basophils (Bld) [#/Vol] 0.0 10*3/uL 0.0-0.2 [facility] Basophils/100 WBC Auto (Bld) Ordered By: Kaci Morales on 10-17-2022 Basophils/100 WBC (Bld) 0.4 % . [facility] Benzodiazepines [Presence] i n UrineOrdered By: Kaci Morales on 10-17-2022 Benzodiazepines Ql (U) Negative Negative [facility] Bilirubin Test strip Ql (U)O rdered By: Kaci Morales on 10-17-2022 Bilirubin Ql (U) 1+ Negative [facility] CT head/brain wo conon 10-17 CT head/brain wo con [facility] [address] [place] [address] CT Scan Report Signed Patient: Senthil Scott MR#: [id number] 949 : 2000 Acct:[id number] Age/Sex: 21 / F ADM Date: 10/17/22 Loc: ER Room: Type: [facility] ER Attending Dr: Copies to: Kaci [...] Maricruz Vick M.D.10/17/2022 5:07 PM Dictation Location: [place] [address] Transcribed By: [facility] 10/17/221706 Dictated By: Maricruz Vick MD 10/17/221703 Signed By: 10/17/221706 Normal [facility] Cannabinoids [Presence] in U rine by Screen methodOrdered By: Kaci Morales on 10-17-2022 Cannabinoids Screen Ql (U) Positive Negative [facility] Comment on above: These are unconfirme d [...] (Urine sed) None seen [LPF] None Seen [facility] Color Auto (U)Ordered By: Yuriy Morales on 10-17-2022 Color (U) Dark yellow Yellow [facility] Complete Blood Count Auto Di ffon 10-17-2022 Basophils (Bld) [#/Vol] 0.0 10*3/uL Normal 0.0-0.2 [facility] Comment on above: Result Comment: PERF ORMED BY: [place] [address] PATHOLOGIST ASSISTANT TO THE DIRECTOR ZEB BASURTO M.D. Performed By: #### H S TROP, BMP, CBC #### [address] Basophils/100 WBC (Bld) 0.4 % Normal . [facility] Comment on above: Performed By: #### H S TROP, BMP, CBC #### [address] Eosinophils (Bld) [#/Vol] 0.0 10*3/uL Normal 0.0-0.45 [facility] Comment on above: Performed By: #### H S TROP, BMP, CBC #### [address] Eosinophils/100 WBC (Bld) 0.4 % Normal . [facility] Comment on above: Performed By: #### H S TROP, BMP, CBC #### [address] Erythrocyte distribution width (RBC) [Ratio] 13.0 % Normal 11.9-15.3 [facility] Comment on above: Performed By: #### H S TROP, BMP, CBC #### [address] Hematocrit (Bld) [Volume fraction] 37.2 % Normal 34.0-46.4 [facility] Comment on above: Performed By: #### H S TROP, BMP, CBC #### [facility] [address] [place] [address] [place] Hemoglobin (Bld) [Mass/Vol] 12.4 g/dL Normal 11.8-15.4 [facility] Comment on above: Performed By: #### H S TROP, BMP, CBC #### [place] [address] [place] Lymphocytes (Bld) [#/Vol] 1.1 10*3/uL Normal 1.00-4.8 [facility] Comment on above: Performed By: #### H S TROP BMP, CBC #### [address] Lymphocytes/100 WBC (Bld) 14.5 % Normal . [facility] Comment on above: Performed By: #### H S TROP BMP, CBC #### [address] MCH (RBC) [Entitic mass] 29.4 pg Normal 24.7-34.3 [facility] Comment on above: Performed By: #### H S TROP BMP, CBC #### [address] MCV (RBC) [Entitic vol] 88.6 fL Normal 80-100 [facility] Comment on above: Performed By: #### H S TROP BMP, CBC #### [address] Mean Corpuscular HGB Conc 33.2 g/dL Normal 32.0-35.0 [facility] Comment on above: Performed By: #### H S TROP BMP, CBC #### [address] Monocytes (Bld) [#/Vol] 0.4 10*3/uL Normal 0.0-0.8 [facility] Comment on above: Performed By: #### H S TROP, BMP, CBC #### [place] [address] [place] Monocytes/100 WBC (Bld) 14.49 % Normal 0.00-20.00 [facility] Comment on above: Performed By: #### H S TROP, BMP, CBC #### [address] Monocytes/100 WBC (Bld) 5.2 % Normal . [facility] Comment on above: Performed By: #### H S TROP, BMP, CBC #### [address] [place] [address] [place] Neutrophils (Bld) [#/Vol] 5.8 10*3/uL Normal 1.8-7.7 [facility] Comment on above: Performed By: #### H S TROP, BMP, CBC #### [facility] [address] Neutrophils/100 WBC (Bld) 79.5 % Normal . [facility] Comment on above: Performed By: #### H S TROP, BMP, CBC #### [facility] [address] NRBC% 0.1 /100{WBC} Normal 0-0.5 [facility] Comment on above: Performed By: #### H S TROP, BMP, CBC #### [address] Platelet mean volume (Bld) [Entitic vol] 7.9 fL Normal 6.3-10.7 [facility] Comment on above: Performed By: #### H S TROP, BMP, CBC #### [place] [address] [place] Platelets (Bld) [#/Vol] 229 10*3/uL Normal 150-450 [facility] Comment on above: Performed By: #### H S TROP, BMP, CBC #### [address] RBC (Bld) [#/Vol] 4.19 10*6/uL Normal 3.60-5.00 [facility] Comment on above: Performed By: #### H S TROP, BMP, CBC #### [place] [address] [place] WBC (Bld) [#/Vol] 7.3 10*3/uL Normal 3.8-11.6 [facility] Comment on above: Performed By: #### H S TROP, BMP, CBC #### [place] [address] [place] Creatinine and Glomerular fi ltration rate.predicted panel (S/P/Bld)Ordered By: Kaci Morales on 10-17-2022 Creatinine [Mass/Vol] 0.80 mg/dL 0.44-1.03 [facility] Dipstick and Microscopicon 0 10-17-2022 Appearance (U) Cloudy Critically abnormal Clear [facility] Comment on above: Order Comment: Name Collection Type:: Clean-Voided Midstream Performed By: #### A DDONUAPLUS, UHCG, CUU #### [facility] [address] [place] [address] [place] Bacteria,Urine 1+ High None Seen [facility] Comment on above: Order Comment: Name Collection Type:: Clean-Voided Midstream Performed By: #### A DDONUAPLUS, UHCG, CUU #### [facility] [address] [place] [address] [place] Bilirubin,Urine 1+ High Negative [facility] Comment on above: Order Comment: Name Collection Type:: Clean-Voided Midstream Performed By: #### A DDONUAPLUS, UHCG, CUU #### [facility] [address] [place] [address] [place] Calcium Oxalate Crystals,Urine 3+ Normal [facility] Comment on above: Order Comment: Name Collection Type:: Clean-Voided Midstream Performed By: #### A DDONUAPLUS, UHCG, CUU #### [facility] [address] [place], [place] [id number] [place] Color (U) Dark Yellow Critically abnormal Yellow [facility] Comment on above: Order Comment: Name Collection Type:: Clean-Voided Midstream Performed By: #### A DDONUAPLUS, UHCG, CUU #### [facility] [address] [place] [address] [place] Glucose Ql (U) Normal Normal Normal [facility] Comment on above: Order Comment: Name Collection Type:: Clean-Voided Midstream Performed By: #### A DDONUAPLUS, UHCG, CUU #### [facility] [address] [place] [address] [place] Hyaline Casts,Urine None Seen Normal 0-1 [facility] Comment on above: Order Comment: Name Collection Type:: Clean-Voided Midstream Performed By: #### A DDONUAPLUS, UHCG, CUU #### [facility] [address] [place] [address] [place] Ketones Ql (U) 1+ High Negative [facility] Comment on above: Order Comment: Name Collection Type:: Clean-Voided Midstream Performed By: #### A DDONUAPLUS, UHCG, CUU #### [address] Leukocyte esterase Test strip Ql (U) 2+ High Negative [facility] Comment on above: Order Comment: Name Collection Type:: Clean-Voided Midstream Performed By: #### A DDONUAPLUS, UHCG, CUU #### [address] Nitrite,Urine Negative Normal Negative [facility] Comment on above: Order Comment: Name Collection Type:: Clean-Voided Midstream Performed By: #### A DDONUAPLUS, UHCG, CUU #### [place] [address] [place] Occult Blood,Urine 3+ High Negative [facility] Comment on above: Order Comment: Name Collection Type:: Clean-Voided Midstream Performed By: #### A DDONUAPLUS, UHCG, CUU #### [facility] [address] [place] [address] [place] Othe Crystals,Urine None Seen Normal [facility] Comment on above: Order Comment: Name Collection Type:: Clean-Voided Midstream Performed By: #### A DDONUAPLUS, UHCG, CUU #### [facility] [address] [place] [address] [place] Other Casts,Urine None Seen Normal None Seen [facility] Comment on above: Order Comment: Name Collection Type:: Clean-Voided Midstream Performed By: #### A DDONUAPLUS, UHCG, CUU #### [facility] [address] [place] [address] [place] pH (U) 5.0 [pH] Normal 5.0-9.0 [facility] Comment on above: Order Comment: Name Collection Type:: Clean-Voided Midstream Performed By: #### A DDONUAPLUS, UHCG, CUU #### [address] Protein (U) [Mass/Vol] 100 mg/dL High Negative [facility] Comment on above: Order Comment: Name Collection Type:: Clean-Voided Midstream Performed By: #### A DDONUAPLUS, UHCG, CUU #### [facility] [address] [place] [address] RBC,Urine 20-49 High 0-4 [facility] Comment on above: Order Comment: Name Collection Type:: Clean-Voided Midstream Performed By: #### A DDONUAPLUS, UHCG, CUU #### [address] Specificy [place],Urine 1.035 High 1.001-1.030 [facility] Comment on above: Order Comment: Name Collection Type:: Clean-Voided Midstream Performed By: #### A DDONUAPLUS, UHCG, CUU #### [facility] [address] [place] [address] Squamous Epithelial Cell,Urine 5-9 High 0-2 [facility] Comment on above: Order Comment: Name Collection Type:: Clean-Voided Midstream Performed By: #### A DDONUAPLUS, UHCG, CUU #### [facility] [address] [place] [address] Urobilinogen,Urine Normal Normal Normal [facility] Comment on above: Order Comment: Name Collection Type:: Clean-Voided Midstream Performed By: #### A DDONUAPLUS, UHCG, CUU #### [address] WBC,Urine 20-49 High 0-4 [facility] Comment on above: Order Comment: Name Collection Type:: Clean-Voided Midstream Performed By: #### A DDONUAPLUS, UHCG, CUU #### [facility] [address] [place] [address] [place] Drug Screen,Urineon 10-17-19 23 Amphetamine Screen,Urine Negative Normal Negative [facility] Comment on above: Performed By: #### U RDS #### [place] [address] [place] Barbiturate Screen,Urine Negative Normal Negative [facility] Comment on above: Performed By: #### U RDS #### [place] [address] [place] Benzodiazepines Screen,Urine Negative Normal Negative [facility] Comment on above: Performed By: #### U RDS #### [address] Cannabinoid Screen,Urine Positive High Negative [facility] Comment on above: Result Comment: Thes e are unconfirmed results and should not be used for legal purposes. Drug Cut-Off Concentration: AMPH 1000 ng/mL JERRY 200 ng/mL BOBBI 200 ng/mL COCM 300 ng/mL OP 300 ng/mL PCP 25 ng/mL THC 20 ng/mL PERFORMED BY: [place] [address] PATHOLOGIST ASSISTANT TO THE DIRECTOR ZEB BASURTO M.D. Performed By: #### U RDS #### [place] [address] [place] Cocaine Screen,Urine Negative Normal Negative [facility] Comment on above: Performed By: #### U RDS #### [place] [address] [place] Opiate Screen,Urine Negative Normal Negative [facility] Comment on above: Performed By: #### U RDS #### [place] [address] [place] Phencyclidine Screen,Urine Negative Normal Negative [facility] Comment on above: Performed By: #### U RDS #### [address] ECG 12 lead ECGon 10-17-2022 ECG 12 lead ECG [facility] [address] [place] [address] Electrocardiograph Report Signed Patient: Senthil Scott MR#: [id number] 949 : 2000 Acct:[id number] Age/Sex: 21 / F ADM Date: 10/17/22 Loc: ER Room: Type: [facility] ER Attending Dr: Ordering Provider: Kaci Morales [...] Rightward axis Confirmed by Hai DUFFY DO ([id number]) on 10/17/2022 6:46:54 PM Referred By: Electronically Signed By:Hai DUFFY DO Transcribed By: MUS Signed By Hai Duffy DO 0 10/17/22 1846 Normal [facility] Eosinophils Auto (Bld) [#/Vo l]Ordered By: Kaci Morales on 10-17-2022 Eosinophils (Bld) [#/Vol] 0.0 10*3/uL 0.0-0.45 [facility] Eosinophils/100 WBC Auto (Bl d)Ordered By: Kaci Morales on 10-17-2022 Eosinophils/100 WBC (Bld) 0.4 % . [facility] Erythrocyte distribution wid th Auto (RBC) [Ratio]Ordered By: Kaci Morales on 10-17-2022 Erythrocyte distribution width (RBC) [Ratio] 13.0 % 11.9-15.3 [facility] Estimated glomerular filtrat ion rate (GFR) non- AmericanOrdered By: Kaci Morales on 10-17-2022 GFR/1.73 sq M.predicted among non-blacks MDRD (S/P/Bld) [Vol rate/Area] > 60 mL/Min [facility] HCG ( test) IA.rapi d Ql (U)Ordered By: Kaci Morales on 10-17-2022 HCG ( test) Ql (U) Negative [facility] HCG,Urineon 10-17-2022 Beta HCG ( test) Ql (U) Negative Normal [facility] Comment on above: Order Comment: Name Collection Type:: Clean-Voided Midstream Result Comment: PERF ORMED BY: [place] [address] PATHOLOGIST ASSISTANT TO THE DIRECTOR ZEB BASURTO M.D. Performed By: #### A DDONUAPLUS, CG, CUU #### [address] Hematocrit Auto (Bld) [Volum e fraction]Ordered By: Kaci Morales on 10-17-2022 Hematocrit (Bld) [Volume fraction] 37.2 % 34.0-46.4 [facility] Hemoglobin [Mass/volume] in BloodOrdered By: Kaci Morales on 10-17-2022 Hemoglobin (Bld) [Mass/Vol] 12.4 g/dL 11.8-15.4 [facility] Ketones Auto test strip (U) [Mass/Vol]Ordered By: Kaci Morales on 10-17-2022 Ketones (U) [Mass/Vol] 1+ Negative [facility] - Drug toxicology Ordered By: Kaci Morales on 10-17-2022 Opiates Ql (U) Negative Negative [facility] Leukocytes [#/volume] correc marv for nucleated erythrocytes in Blood by Automated counOrdered By: Kaci Morales on 10-17-2022 WBC corrected for nucl RBC Auto (Bld) [#/Vol] 7.3 10*3/uL 3.8-11.6 [facility] Lymphocytes Auto (Bld) [#/Vo l]Ordered By: Kaci Morales on 10-17-2022 Lymphocytes (Bld) [#/Vol] 1.1 10*3/uL 1.00-4.8 [facility] Lymphocytes/100 WBC Auto (Bl d)Ordered By: Kaci Morales on 10-17-2022 Lymphocytes/100 WBC (Bld) 14.5 % . [facility] MCH Auto (RBC) [Entitic mass ]Ordered By: Kaci Morales on 10-17-2022 MCH (RBC) [Entitic mass] 29.4 pg 24.7-34.3 [facility] MCHC Auto (RBC) [Mass/Vol]Or dered By: Kaci Morales on 10-17-2022 MCHC (RBC) [Mass/Vol] 33.2 g/dL 32.0-35.0 [facility] MCV Auto (RBC) [Entitic vol] Ordered By: Kaci Morales on 10-17-2022 MCV (RBC) [Entitic vol] 88.6 fL 80-100 [facility] Monocyte distribution width [Entitic volume] in Blood by AutomatedOrdered By: Kaci Morales on 10-17-2022 Monocyte distribution width Auto (Bld) [Entitic vol] 14.49 % 0.00-20.00 [facility] Monocytes Auto (Bld) [#/Vol] Ordered By: Kaci Morales on 10-17-2022 Monocytes (Bld) [#/Vol] 0.4 10*3/uL 0.0-0.8 [facility] Monocytes/100 WBC Auto (Bld) Ordered By: Kaci Morales on 10-17-2022 Monocytes/100 WBC (Bld) 5.2 % . [facility] Neutrophils Auto (Bld) [#/Vo l]Ordered By: Kaci Morales on 10-17-2022 Neutrophils (Bld) [#/Vol] 5.8 10*3/uL 1.8-7.7 [facility] Neutrophils/100 WBC Auto (Bl d)Ordered By: Kaci Morlaes on 10-17-2022 Neutrophils/100 WBC (Bld) 79.5 % . [facility] Nitrite Test strip Ql (U)Ord ered By: Kaci Morales on 10-17-2022 Nitrite Ql (U) Negative Negative [facility] No Panel InformationOrdered By: Kaci Morales on 10-17-2022 Estimated GFR () > 60 mL/Min [facility] Comment on above: GFR estimated refere nce range: According to KDOQI guidelines, <60 ml/min/1.73m2 is sufficient to diagnose a patient with chronic kidney disease. Pharmacy Creatinine Clearance (Chem 87.98 [facility] Nucleated erythrocytes [Pres ence] in Blood by Automated countOrdered By: Kaci Morales on 10-17-2022 Nucleated RBC Auto Ql (Bld) 0.1 /100{WBC} 0-0.5 [facility] Phencyclidine Screen Ql (U)O rdered By: Kaci Morales on 10-17-2022 Phencyclidine Ql (U) Negative Negative [facility] Platelet mean volume Auto (B ld) [Entitic vol]Ordered By: Kaci Morales on 10-17-2022 Platelet mean volume (Bld) [Entitic vol] 7.9 fL 6.3-10.7 [facility] Platelets Auto (Bld) [#/Vol] Ordered By: Kaci Morales on 10-17-2022 Platelets (Bld) [#/Vol] 229 10*3/uL 150-450 [facility] Protein Auto test strip (U) [Mass/Vol]Ordered By: Kaci Morales on 10-17-2022 Protein (U) [Mass/Vol] 100 mg/dL Negative [facility] RBC Auto (Bld) [#/Vol]Ordere d By: Kaci Morales on 10-17-2022 RBC (Bld) [#/Vol] 4.19 10*6/uL 3.60-5.00 [facility] Serum or plasma anion gap de terminationOrdered By: Kaci Morales on 10-17-2022 Anion gap [Moles/Vol] 13.2 mmol/L 6.0-15.0 [facility] Serum or plasma calcium jesus urement (mass/volume)Ordered By: Kaci Morales on 10-17-2022 Calcium [Mass/Vol] 9.5 mg/dL 8.2-10.2 [facility] Serum or plasma chloride iam surement (moles/volume)Ordered By: Kaci Morales on 10-17-2022 Chloride [Moles/Vol] 103 mmol/L 95-114 [facility] Serum or plasma glucose jesus urement (mass/volume)Ordered By: Kaci Morales on 02-06-2023 Glucose [Mass/Vol] 118 mg/dL 70-100 [facility] Comment on above: ADA recommended refe rence rangeRandom Glucose Reference Range is dependent on time and content of last meal. Glucose of more than 200 mg/dL in a nonstressed, ambulatory subject supports the diagnosis of Diabetes Mellitus. Serum or plasma potassium me asurement (moles/volume)Ordered By: Kaci [facility] on 10-17-2022 Potassium [Moles/Vol] 3.7 mmol/L 3.5-5.1 [facility] Serum or plasma sodium measu rement (moles/volume)Ordered By: [facility] on 10-17-2022 Sodium [Moles/Vol] 138 mmol/L 136-146 [facility] Serum or plasma total carbon dioxide measurement (moles/volume)Ordered By: [facility] on 10-17-2022 CO2 [Moles/Vol] 25.5 mmol/L 22.0-30.0 [facility] Serum or plasma urea nitroge n measurement (mass/volume)Ordered By: Kaci [facility] on 10-17-2022 Urea nitrogen [Mass/Vol] 10 mg/dL 9-23 [facility] Specific gravity Auto test s trip (U) [Rel density]Ordered By: [facility] on 10-17-2022 Specific gravity (U) [Rel density] 1.035 1.001-1.030 [facility] Squamous epithelial cells de tection in urine sediment by light microscopyOrdered By: [facility] on 10-17-2022 Epithelial cells.squamous LM Ql (Urine sed) 5-9 [HPF] 0-2 [facility] Troponin I High Sensitivityo n 10-17-2022 Troponin I High Sensitivity < 3 Normal 0-15 [facility] Comment on above: Result Comment: PERF ORMED BY: [place] [address] PATHOLOGIST ASSISTANT TO THE DIRECTOR ZEB BASURTO M.D. Performed By: #### H S TROP, BMP, CBC #### [address] Troponin I.cardiac [Mass/vol ume] in Serum or Plasma by High sensitivity methodOrdered By: Kaci Morales on 10-17-2022 Troponin I.cardiac High sensitivity method [Mass/Vol] < 3 pg/mL 0-15 [facility] Urine Cultureon 10-17-2022 Bacteria identified Cx Nom (U) 75,000 colonies/ml mixed bacterial skin contaminants 2 Days PERFORMED BY: [place] [address] PATHOLOGIST ASSISTANT TO THE DIRECTOR ZEB BASURTO M.D. Normal [facility] Comment on above: Performed By: #### A DDONUAPLUS, UHCG, CUU #### [address] Urine bacteria detection by automated methodOrdered By: Kaci Morales on 10-17-2022 Bacteria Auto Ql (U) 1+ None Seen [facility] Urine clarity by refractomet ry automatedOrdered By: Kaci Morales on 10-17-2022 Clarity Refractometry automated (U) Cloudy Clear [facility] Urine cocaine detectionOrder ed By: Kaci Morales on 10-17-2022 Cocaine Ql (U) Negative Negative [facility] Urine glucose measurement by automated test strip (mass/volume)Ordered By: Kaci Morales on 10-17-2022 Glucose Auto test strip (U) [Mass/Vol] Normal mg/dL Normal [facility] Urine hemoglobin detection b y automated test stripOrdered By: Kaci Morales on 10-17-2022 Hemoglobin Auto test strip Ql (U) 3+ Negative [facility] Urine leukocyte esterase det ection by automated test stripOrdered By: Kaci Morales on 10-17-2022 Leukocyte esterase Auto test strip Ql (U) 2+ Negative [facility] Urine sediment crystal ident ification by light microscopyOrdered By: Kaci Morales on 10-17-2022 Crystals LM Nom (Urine sed) None seen [HPF] [facility] Urobilinogen Auto test strip (U) [Mass/Vol]Ordered By: Kaci Morales on 10-17-2022 Urobilinogen (U) [Mass/Vol] Normal mg/dL Normal [facility] WBC Auto (Bld) [#/Vol]Ordere d By: Kaci Morales on 10-17-2022 WBC (Bld) [#/Vol] 7.3 10*3/uL 3.8-11.6 [facility] XR chest 1V portableon 10-17 XR chest 1V portable [facility] [place] [address] [place] [address] XRay Report Signed Patient: Senthil Scott MR#: [id number] 949 : 2000 Acct:[id number] Age/Sex: 21 / F ADM Date: 10/17/22 [...] Maricruz Vick M.D.10/17/2022 4:47 PM Dictation Location: [place] [address] Transcribed By: [facility] 10/17/22 1647 Dictated By: Maricruz Vick MD 10/17/22 1645 Signed By: 10/17/22 1647 Normal [facility] pH Auto test strip (U)Ordere d By: Kaci Morales on 10-17-2022 pH (U) 5.0 [pH] 5.0-9.0 [facility] Provider Letter FTon 05-31 Provider Letter [facility] May 31, 2022 SENTHIL CSOTT [address] [place] [phone] SENTHIL SCOTT 2000 To Whom It May Concern, Please excuse above patient from work 05/28/2022. Dr. Sal Downs MD General Surgery [facility] Provider Letteron 05-17-2022 Provider Letter May 17, 2022 TYLERNAVEENSA Navneet [address] [place] [phone] TYLERSENTHIL 2000 Dear Senthil, We have been trying to reach you with no success. It is important that you return our call regarding your referral from Dr. Ham upon receiving this letter. Also, at the time of your call, please provide us with your current information. Thank you for your prompt attention to this matter. Sincerely, General Surgery [phone] [facility] Physician Referralon 022 Physician Referral [phone] [id number]:127 [facility] 2018 Novel Coronavirus (CoVI D-19), EMELYN LCon 02-10-2022 SARS-CoV-2 (COVID-19) RNA EMELYN+probe Ql (Unsp spec) Not detected Invalid Interpretation Code Not Detected [facility] Comment on above: Order Comment: [id number] 1 # [phone] Result Comment: This nucleic acid amplification test was developed and its performance characteristics determined by [employer]. Nucleic acid amplification tests include RT- PCR [...] detected) result in this assay. Performed At: [facility] [address] [place], [place] [id number] Sanjuanita Hernández PhD Ph:[phone] Performed By: #### 6 [id number] #### [facility] ([facility]) [address] [place] [id number] Coding Summaryon 02-10-2022 Coding Summary HTMLBase 64 WptuvfmxCXw2gRl+PGh lYWQ+OK5WMINuH77rxO ZiyX6CX0iHQP8AUJJJR IUSTJ2PGG5hbPU8CDsp N5GmzoGg GknmaYGwUA86ZZq8ZRZ 2sRxoELtzvO3myEPyG4 c4MjJgSF54zD91OOcrC BPgSpL5JuBzzzmjyCRt F3dtDnRpbCXnXyl+PHR hYmxlIHdpZHRoPScxMD IzQtPdeBjoMP8qXp1bU GVyLWNvbGxhcHNlOiBj e2uiZCZgEGqsBB9cdFz yS4QwjYO4WUTqz2r5Jt 48dHI+SVRgOJC9fCfmK Zdgn808EhMlq0nkYAZ8 hNAsUCxgKYF5L47kg6E 1OIPjQDNwZZM8fHK7eI 3quTvqghohM0UhdHUxC nI0VJX8tYCapH8rmPjh jadeoP9aTlr+Z82ZCZ6 SCAUHNZ1YFyh5X2PgJn wvdHI+PQ29RWGkAI53p JBezCBlw5bvfCj3ToFp MIKwCFK7dGqkJJhgu5Q gIYBfP21vxJBlu4I2YE NjiBfhrIHpLvWfrPK0r H3wWBwxzfsbl5aslnao Nodpa8fzof87iB63Q32 nHMoeOMVaXXR0BFJoRS UsnOawsl3jlG9uPp0+I Aknc2ocl0gjoRl4HnMa GTHvaiWjpRdqYQK9c8U aIi93O5LknDkec3SiNk r7on58wFIce4E9cXW8Q SemUIQtyM9eIYcrHaY9 WOHxYgJkcS19hOAyAHn jBl8ipPptdJyrEU9dYX MsgapkMFQovN7rLHKer LZptCbhSD4yFVOvbbce w657CbLhCFO6VQIieIJ eW1EhwD8wFdWyRYTaVT ZnS9KlpMTtURnqG063N WerWzD0YXLnxbWtC1Xh EMYymCjlZyB9b5F8Al3 Ig0SpuchsWYL2SJgjGP X2IqEeTwMcCwU2H5VsU lh3YMPlyLhuEL6gF7Bo TFYamnybjxndjBJ1RYK eUQPvcR78tSAoHLvvPi 5tl8L3v619PYSeWYDsc J26Uq0imXctYVQvpVNS kY7xgtyew7kdlwrbEmJ nRETaIDb2CEn1WCJfgH qpRbJxYRW7XlM7JHR5s KIbbS7cyUoldfvnsO6n Oyc+Z26afZ0fDQV0UNK 4vfnuTRWtlxWgFV07QA 51Z9TpAfwueAIoqAP+P PPqwwYzwXgiMK1iTrMz e8vez6ReBMioF7PvXOQ qDFrmPpl8RFMeDIW0xT E2aT9aVHKvRKnud1I1u EV1F7OxsqLgcq2pk1wn DHWcOJrqS74nxTSmm3K 9ZOOrzXC7XIKfhVrvPi ZiiI30Gxk+PGNvbGdyb 8BvDfyrk4pdo7jvnRi5 IjMwJSIgdmFsaWduPSJ 0i9NyQm76Q37qILgbIW RoPSIxNSUiIHZhbGlnb q9pdO1aGa3+PGNvbCB3 tBT3tM0bMMPsKvG1SJj yU059ZyUhcFHaXosfs8 lqm0ojlYd0UjMaQLOni rJabSnhWVU4d5TsBe80 H60uOQlqIHVrEFFvCTR cJPAsdGwtmt8ygF9nNn 8+UI4pp0xvmr02rB61v HI+LFJtDKZ1iAjvXKbq BIGwsA2kRHhwItT0AMA lWzHmjJ22gRNyNMvhRx 1seAlvzItaTX6tOHAxs wnvn543TaAxl4idWLEn ePRxRHthUET5C11ga4N 8URZgXVQvEYZ0nZO5cO 1hbGlnbjogbGVmdDsgd aXhyFffPWcoDImpX241 IHRvcDsnPlBhdGllbnQ gJzQbSDu4T6YvHvb7QY NgzOnrNK1jaCLvONxhO l6avPrjqFhaNK3wJKLw wdfvx239CyDra2sfFKF vqPTeLDhlCMI4S90iv4 A1EGZhIKDiVZC2xQI0j E3rgJcaynfnwGYmwQgy imWmeHbhVOxxZKjmZ46 6IHRvcDsnPkJpcnRoIE AtoRK6YE90MR79iMZno 3S7cXH7B7YqOGQgnenz ncxjbTG3JYEmFELvlB6 8Ku5spLwlAe7iLSZiDZ D1ZIOjgDDtQ3WtkS2cM rJcLDTcJKRrY4BgpIFs TDctB436ADqvLmV9MGC fczPhL9McKBFnaCtsLu Q9w3I1Vp4SE6Z1YI73X D80uZTee5N7lVV8B6Zi AACyjwjcbxpilVV1ZWO rPIOtkH43Rg5ygJhsYa 9sACVhUSN4RKJahQFaL 9MohA1oJgHySSNjXAEa K5HfiCHoIQbbY241PQe xFzV3MIVdflDmT2HzHF JjrOqpBeJ3y9G7Mf0BE Yh9RM29QC00iHSdu1Z5 hUP0P6KeMAVcckksept azDL6YBCuBRMvnU49Li 2jhEjnQd9jOGXhWVI6M CIzsOIzK3YfwZ6oKvWs FQHdYREcI6BfqTYqHYf mP323ROvpItI6YUUnou UoR9CyHSJkaTtyOiE7l 8O4Ra0WONFpMY57JNJ4 hJA2EJ13HX90C1PlPto vdGFibGU+PHRhYmxlIH dpZHRoPScxMDAlJyBzd JzvDR7fUd1kLWRrVHYn aMmxaXHeSySgr4ipPEY mKIoqHF3ebIcqF5MduZ E4ERKoi2w2Pm67G02eN 3JvdXA+DCFpgSK9pCI1 mB1bCbSeMdT2CSfjG78 7AaCinRTyJokdu1xyx6 powFv1HzP7ZFEfihWjt GesOVB6l0KmJe68D61v IHdpZHRoPSIxNSUiIHZ hdEufld7jsM9lQe5+PG LelML7gFT0nT3uKgUmR jQ5IRqzG540VeHypCNl Udqmz5ywt0vmtFq2EjE pHYKiojFbrMsjQXJ0b6 XgIk22V2OazJqmh2ZyP bj5dt88yYWux9V8fPY3 U9PdWIZozpmjfXKlvPj dCA7hMQPpqwtkCYVnlL 6ePJRvS7h0YtVbVzP8V BjqD2ThqhP3FSFsbDPr XAooLKY6V42md0M3CME iOEHcZFV4oTD3yT6rbS lnbjogbGVmdDsgdmVyd GxsSWexDKtrI112TZUh rIapYEJjaR2gNRBucLO mnFbmBM3yMNSpcwglYs dGMFbESzhuWFhKB4QTD FNVRTwvdGQ+PHRkIHN0 qQyzIAziDYYyjD3jGQW uQ5k2JsXsWgZ2GHjpH2 QgDCHurbrmOu63bL4qB iDvEqA5BHrhX8JipoK1 ZVCugHZcDStbZXT9H51 dn7W2JGShRDFpUJU6hB G8eM2nzGcxnqyfkZWgd DsgdmVydGljYWwtYWxp E643JKPwpZtxFqJgWzR 3LwItEMG3Y3KoRpo5AD TezYnjPA7vmZTaUFzmJ x8nhUkhkQebQM6lIHNh niadWFZdvC8uYCSiiOS hvWwfTR0bWJCueqqxe1 82VxRpWCS7EHCwqTPqW 0VbrF7tCoNwHTScJNCy I5YrdFIhIRptK674TIi aArF8LPYwufSaZ7DqFH ByeYwgGmK9x1D9Ec9nA SBZZWFyczwvdGQ+PHRk TSK3tBfyEQbpTNKyeM9 bZRCqC8r0UlHgNhF7PG yuE3HjFMLphuvhEl54i W8xCiGxDiQ3CFyuN1Xe lhH4LPVhiHCjTOyeAXI 9G90ng7Q1EKLcCWBiJV S5zTG7kI9ahTztnncwn GVmdDsgdmVydGljYWwt REcxG372BDEmsYouPrX FTUFMRTwvdGQ+PHRkIH D4wKveKWdvOLKeuO2kB IVyM3l9IpEnUrT3OStq M1DzNNRxxchyOm25uR2 kLuIkRyJ9CVqvL4Ftqq X7DQZmdBRsHFwuYBE6F 29bi2H9PENwONPjQXD1 bIB5sW4lhFyqasucjJS mdDsgdmVydGljYWwtYW zjJ963WNAvqXuvXe9QE Q61GS59A7KuSpvgaPHm bGU+PHRhYmxlIHdpZHR oPScxMDAlJyBzdHlsZT 5nFb7lSYEsZKKdbIduz KHuKcKep7aaAXJbPRse NE6kaNzwY3WiiPS2EQN mx7m3Xs65Q06eH4AbxP A+AVZgyPF8yXE3wA1tQ zEnEiP4GBqrH635ReQu lTLqQwqvr8mht1lnpCu 9IjMwJSIgdmFsaWduPS H4e5VmAy90J21pYBxtC HRoPSIyMCUiIHZhbGln yb3ilW6tMp0+PGNvbCB 5eSL8rI9mEwWmKjK3JV mlS185OiXdnUSkJyilJ 06sF3UwiLI+PHRyPjx0 OGAneLloUT4qsXUsMQy hDu7lQZV3KfQgGbKeNI mlU4XwYBBbqkpuvhhxp MA3EAJrYRMqtT09Nm9n oGsoUc4bLMGsRSF8JRQ msFXxS7EvvP3qYpSpII ClAUKdB3DbwBGqGErkZ 541HXtyCcQ7JQJgjbCt N1BvTFDomPlfBfC1y1Z 7Ft8UaRptuEGjAP5aTb HiMJw5T9NdNbp7OKLql PbuDG8ixSGwVNduOd0l fOqyuJveZF7rQFAnypl ar415RtNnr9mcRSIiiP FnGRuuJMD0P96fd9W6P RAiOERdJPW5pBQ7zQ2l bGlnbjogbGVmdDsgdmV kpJplTBvuZUzcV113HT AqiLkmBnGQRjc4B7IzX rg7ACTxqRheEP7lkSVo JOrrYg1lzLihdVuvRD6 kQYTmqrgsc462XtFld5 wnQWFhbUSqNJwwICI3X 71uz3A3DSBqIGNnJLE0 lDT2yY5wfAluvkxbrAN mdDsgdmVydGljYWwtYW fiM143WRYsuZkgAk0MJ wn0T4NjGwb8ZKRycWld FP6gtREeDXnmIf1ncXc hjVvfOS4eZHTatllcs5 90JdHsi2tfJNVolLVfA GjkGPQ5R90tm8W6HBRs FOYbALD9iSZ2gW0bfOn nbjogbGVmdDsgdmVydG ysZAlpTElyB237WNLax DsnPlBheWVyOjwvdGQ+ TU62yl45X7JkKnhlDlg 3WCBeDKU7pEI7kK6pDU YbGVluw5T8eES0P1Lmp mJyzk9mj7ryOWWvOGmw Y29 (more content not included)... Normal [facility] ED Clinical Summaryon 2021 ED Clinical Summary [facility] ? Urgent Care [address] [place], [place] [address] Clinical Summary PERSON INFORMATION Name: SENTHIL SCOTT Age: 21 Years Sex: FEMALE : 2000 MRN: Acct#: Visit Reason: UC - Headache; HEADACHE, NAUSEA Arrival: 02/07/2022 17:42:14 Discharge: 02/07/2022 19:03:00 LOS: 000 01:21 Check In: 02/07/2022 17:42:14 Checkout: 02/07/2022 19:03:00 Address: [address] [place] [address] PCP: Liberty Pierre MD PROVIDER INFORMATION Provider Role Assigned Unassigned Cedric Hemphill ED PA 02/07/2022 17:46:36 Salena Ochoa RN ED Nurse 02/07/2022 17:46:51 VITALS INFORMATION Vital Sign [...] Infection Follow-Up: With: Address: When: Liberty Pierre [address] [facility], [address] [place] [phone] Business (1) Within 2 to 4 days [...] per current recommendations and guidelines from the [facility]. 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 Urgent Care [address] [place] [address] PATIENT DISCHARGE INSTRUCTIONS Patient Information Name: SENTHIL SCOTT Age: 21 Years Date of : 2000 Reason For Visit: UC - Headache; HEADACHE, NAUSEA Arrival Time: 02/07/2022 17:42:14 Primary Care Physician: Liberty Pierre MD Attending Physician: Cedric Hemphill Comment: Patient Education With: Address: When: Liberty Pierre [address] [place] [address], [place] [address] Business (1) Within 2 to 4 days [...] per current recommendations and guidelines from the [facility]. 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 I would recommend that person [...] yourself. Get rest and stay hydrated. Take ivuc-sdq-igkjegr medicines, such as acetaminophen, to help you feel better. ? Stay in touch with your doctor. Call before you get medical care. Be sure to get care if (more content not included)... [facility] Influenza A&B Rapidon 2021 Influenza A Negative [facility] Comment on above: Performed By: #### 1 [id number] #### [facility] (DEFAULT) [address] [place] [address] Influenza B Negative [facility] Comment on above: Performed By: #### 1 [id number] #### [facility] (DEFAULT) [address] [place] [address] Internal QC OK? Pass [facility] Comment on above: Performed By: #### 1 [id number] #### [facility] (DEFAULT) [address] [place] [address] Progress Note - Nurseon 01-11 Progress Note - Nurse Patient provided with fluids [Electronically Signed on: 02/07/2022 18:30 EDT] __ Salena Ochoa RN [Verified on: 02/07/2022 18:30 EDT] __ Salena Ochoa RN [facility] UA w Culture if Ind Standard on 02-07-2022 Breakpoint UA [facility] Comment on above: Performed By: #### 1 [id number] #### [facility] (DEFAULT) [address] [place] [address] Color (U) Yellow [facility] Comment on above: Performed By: #### 1 [id number] #### [facility] (DEFAULT) [address] [place] [address] Culture? Not Indicated Invalid Interpretation Code [facility] Comment on above: Result Comment: Resu lt created by rule GL_MAGR_ADD_UA_CULT1 Performed By: #### 1 [id number] #### [facility] (DEFAULT) [address] [place] [address] Glucose (U) [Mass/Vol] Negative Normal [facility] Comment on above: Performed By: #### 1 [id number] #### [facility] (DEFAULT) [address] [place] [address] Ketones Ql (U) 40 Normal [facility] Comment on above: Performed By: #### 1 [id number] #### [facility] (DEFAULT) [address] [place] [address] Micro? Not Indicated Invalid Interpretation Code [facility] Comment on above: Result Comment: Resu lt created by rule GL_MAGR_ADD_UA_MICRO Performed By: #### 1 [id number] #### [facility] (DEFAULT) [address] [place] [address] UA Bilirubin SMALL Abnormal [facility] Comment on above: Performed By: #### 1 [id number] #### [facility] (DEFAULT) [address] [place] [address] UA Blood Negative Normal NEGATIVE [facility] Comment on above: Performed By: #### 1 [id number] #### [facility] (DEFAULT) [address] [place] [address] UA Clarity CLEAR Normal CLEAR [facility] Comment on above: Performed By: #### 1 [id number] #### [facility] (DEFAULT) [address] [place] [address] UA Leuk Est Negative Normal NEGATIVE [facility] Comment on above: Performed By: #### 1 [id number] #### [facility] (DEFAULT) [address] [place] [address] UA Nitrite Negative Normal NEGATIVE [facility] Comment on above: Performed By: #### 1 [id number] #### [facility] (DEFAULT) [address] [place] [address] UA pH 6.5 Normal 5-8 [facility] Comment on above: Performed By: #### 1 [id number] #### [facility] (DEFAULT) [address] [place] [address] UA Protein Negative Normal NEGATIVE [facility] Comment on above: Performed By: #### 1 [id number] #### [facility] (DEFAULT) [address] [place] [address] UA Spec Grav >=1.030 Normal 1.001-1.035 [facility] Comment on above: Performed By: #### 1 [id number] #### [facility] (DEFAULT) [address] [place] [address] UA Urobilinogen 1.0 mg/dL Normal 0.2-1.0 [facility] Comment on above: Performed By: #### 1 [id number] #### [facility] (DEFAULT) [address] [place] [address] Urine Source Clean Catch Normal [facility] Comment on above: Performed By: #### 1 [id number] #### [facility] (DEFAULT) [address] [place] [address] Urgent Care Note- Provideron 02-07-2022 Urgent Care [...] nose, decreased energy, fatigue, sore throat. Hosted constitution party last night and drank 1 shot and 1 beer. Only drank 1 glass of water today. Ate McDouble and Divehi fries at 5:30pm. + influenza exposure 4 days ago. ALL: None Meds: Midodrine 5mg TID. PMH: Neurocardiogenic syncope, leaky valve of heart Social: Called off work today from [employer]. Worked 02/04, 02/05, 02/06. Marijuana daily. Review [...] headache, dark urine, nausea. She had a constitution party last night and did drink alcohol. 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 May return [...] 18:01 E (more content not included)... [facility] [place] 022 Urgent Care Record [facility] ? Urgent Care [address] [place] [address] PATIENT DISCHARGE INSTRUCTIONS Patient Information Name: SENTHIL SCOTT Age: 21 Years Date of : 2000 Reason For Visit: UC - Headache; HEADACHE, NAUSEA Arrival Time: 02/07/2022 17:42:14 Primary Care Physician: Liberty Pierre MD Attending Physician: Cedric Hemphill Comment: Visit Diagnosis: Diagnoses This Visit Aching headache (R51.9) Mild dehydration (E86.0) Tachycardia (R00.0) UC - Headache ([id number]) Viral URI with cough (J06.9) If you [...] legal documents With: Address: When: Liberty Pierre [address] [place], [place] [id number] Business (1) Within 2 to 4 days [...] per current recommendations and guidelines from the [facility]. -Push fluids to stay hydrated. -Use [...] else to drop your groceries off and pickler helper your medications. I would recommend that person [...] and treatment you received today in the [facility] were for an urgent problem and are not intended as complete care. It is important for you to follow up with a doctor, nurse practitioner, or physician?s portfolio assistant for ongoing care. If your symptoms become worse or you do not improve as expected and you are unable to reach your usual health ca (more content not included)... [facility] CHLAMYDIA/GONOCOCCUS EMELYN (SW AB/URINE/PAPon 12-11-2021 Chlamydia trachomatis, EMELYN Negative Normal Negative [facility] Comment on above: Performed By: #### C T/NGNA #### [facility] [address] [address] [address] Soraya Tavarez Neisseria gonorrhoeae, EMELYN Negative Normal Negative [facility] Comment on above: Performed By: #### C T/NGNA #### [facility] [address] [place] [address] Dr. Soraya Tavarez VAGINITIS/VAGINOSIS DNA PROB Jon 12-10-2021 Elvia species Negative Normal Negative [facility] Comment on above: Performed By: #### V AGINT #### [facility] [address] [address] [address] Soraya Tavarez Gardnerella vaginalis Negative Normal Negative [facility] Comment on above: Performed By: #### V AGINT #### [facility] [address] [place] [address] Dr. Soraya Tavarez Trichomonas vaginalis Negative Normal Negative [facility] Comment on above: Performed By: #### V AGINT #### [facility] [address] [place] [address] Dr. Soraya Tavarez US PELVIS TRANSVAGon 022 [...] by: CLARY LOYD Date: 2021-12-08 14:57 Normal [facility] 10-22-2020 CORTISOL 11.0 mcg/dL Normal [facility] Comment on above: Result Comment: Refe rence Range: AM 6.0-23.0 mcg/dL PM 0.0-9.0 mcg/dL Performed By: #### 3 [id number] #### [facility] [address] [place] [id number] Thyroglobulin Ab Qn [IU]/mL Normal 0.0-4.0 [facility] Comment on above: Result Comment: INTE RPRETIVE INFORMATION: Thyroglobulin Antibody A value of 4.0 IU/mL or less indicates a negative result for thyroglobulin antibodies. The Thyroglobulin Antibody assay is being performed using the Tristin Awareness Card Access DxI method. Performed By: [facility] [address] [place] [address] Practice Management Consultant: Kassy Pickens MD TPO ANTIBODY [id number] TPO ANTIBODY 0.3 IU/mL Normal 0.0-9.[address] [facility] Comment on above: Result Comment: Perf ormed By: [facility] [address] [place] [address] Practice Management Consultant: Kassy Pickens MD TSH RECEPTOR AB [id number] TSH RECEPTOR AB <0.90 Normal <=1.75 [facility] Comment on above: Result Comment: Perf ormed By: [facility] [address] [place] [id number] Practice Management Consultant: Kassy Pickens MD Vital Signs Date Time Vital Sign Value Performing Clinician Facility 2023 09:32-0500 Body mass index (BMI) [Ratio] 24.2 kg/m2 Wesly Linette DO Work Phone: [facility] 2023 09:32-0500 Body weight 63.96 kg Wesly Linette DO Work Phone: [facility] 2023 09:32-0500 Diastolic blood pressure 70 mm[Hg] Wesly Linette DO Work Phone: [facility] 2023 09:32-0500 Systolic blood pressure 110 mm[Hg] Wesly Linette DO Work Phone: [facility] 10-04-2023 09:45-0500 Body height 162.56 cm Liberty Pierre Other [facility] Other 10-04-2023 09:45-0500 Body mass index (BMI) [Ratio] 23.51 kg/m2 Liberty Pierre Other [facility] Other 10-04-2023 09:45-0500 Body temperature 97.8 [degF] Liberty Pierre Other [facility] Other 10-04-2023 09:45-0500 Body weight 62.14 kg Liberty Pierre Other [facility] Other 10-04-2023 09:45-0500 Diastolic blood pressure 80 mm[Hg] Liberty Pierre Other [facility] Other 10-04-2023 09:45-0500 SaO2% (BldA) [Mass fraction] 98 % Liberty Pierre Other [facility] Other 10-04-2023 09:45-0500 Systolic blood pressure 108 mm[Hg] Liberty Pierre Other [facility] Other 09-18-2023 13:08-0500 Body height 162.6 cm Arlette Mustafa MD Work Phone: [facility] 09-18-2023 13:08-0500 Body mass index (BMI) [Ratio] 23.79 kg/m2 Alrette Mustafa MD Work Phone: [facility] 09-18-2023 13:08-0500 Body weight 62.87 kg Arlette Mustafa MD Work Phone: [facility] 09-18-2023 13:08-0500 Diastolic blood pressure 64 mm[Hg] Arlette Mustafa MD Work Phone: [facility] 09-18-2023 13:08-0500 Heart rate 89 /min Arlette Mustafa MD Work Phone: [facility] 09-18-2023 13:08-0500 Systolic blood pressure 109 mm[Hg] Arlette Mustafa MD Work Phone: [facility] 07-22-2023 10:10-0500 Body height 162.56 cm Tiesha Pittsmond Other [facility] Other 07-22-2023 10:10-0500 Body mass index (BMI) [Ratio] 20.94 kg/m2 Tiesha Juliana Other [facility] Other 07-22-2023 10:10-0500 Body temperature 98.1 [degF] Tiesha Juliana Other [facility] Other 07-22-2023 10:10-0500 Body weight 55.34 kg Tiesha Pittsmond Other [facility] Other 07-22-2023 10:10-0500 Respiratory rate 18 /min Tiesha Juliana Other [facility] Other 07-22-2023 10:10-0500 SaO2% (BldA) [Mass fraction] 98 % Tiesha Andrews Other [facility] Other 05-09-2023 14:30-0400 Body height 162.56 cm Liberty Pierre Other [facility] Other 05-09-2023 14:30-0400 Body mass index (BMI) [Ratio] 17.64 kg/m2 Liberty Pierre Other [facility] Other 05-09-2023 14:30-0400 Body weight 46.63 kg Liberty Pierre Other [facility] Other 05-09-2023 14:30-0400 Diastolic blood pressure 64 mm[Hg] Liberty Pierre Other [facility] Other 05-09-2023 14:30-0400 Systolic blood pressure 104 mm[Hg] Liberty Pierre Other [facility] Other 10-21-2022 12:30-0500 Body height 162.56 cm Liberty Pierre Other [facility] Other 10-21-2022 12:30-0500 Body mass index (BMI) [Ratio] 18.71 kg/m2 Liberty Pierre Other [facility] Other 10-21-2022 12:30-0500 Body weight 49.44 kg Liberty Pierre Other [facility] Other 10-21-2022 12:30-0500 Diastolic blood pressure 60 mm[Hg] Liberty Pierre Other [facility] Other 10-21-2022 12:30-0500 SaO2% (BldA) [Mass fraction] 97 % Liberty Pierre Other [facility] Other 10-21-2022 12:30-0500 Systolic blood pressure 108 mm[Hg] Liberty Pierre Other [facility] Other 10-17-2022 17:39-0500 Diastolic blood pressure 53 mm[Hg] MD Liberty Pierre Work Phone: [facility] 10-17-2022 17:39-0500 Heart rate 95 /min MD Liberty Pierre Work Phone: [facility] 10-17-2022 17:39-0500 Respiratory rate 16 /min MD Liberty Pierre Work Phone: [facility] 10-17-2022 17:39-0500 SaO2% (BldA) [Mass fraction] 98 % MD Liberty Pierre Work Phone: [facility] 10-17-2022 17:39-0500 Systolic blood pressure 102 mm[Hg] MD Liberty Pierre Work Phone: [facility] 10-17-2022 15:42-0500 Body height 162.56 cm MD Liberty Pierre Work Phone: [facility] 10-17-2022 15:42-0500 Body temperature 97.8 [degF] MD Liberty Pierre Work Phone: [facility] 10-17-2022 15:42-0500 Body weight 50.1 kg MD Liberty Pierre Work Phone: [facility] 05-31-2022 14:29-0400 Blood Pressure Location Sal DOWNS [facility] 05-31-2022 14:29-0400 Diastolic blood pressure 60 mm[Hg] Sal DOWNS [facility] [place] 05-31-2022 14:29-0400 Heart rate 68 /min Sal DOWNS [facility] [place] 05-31-2022 14:29-0400 Respiratory rate 16 /min Sal DOWNS [facility] [place] 05-31-2022 14:29-0400 Systolic blood pressure 108 mm[Hg] Sal DOWNS [facility] [place] Encounters Encounter Date Encounter Type Care Provider Facility Start: 03-05-2024 End: 03-05-2024 ambulatory WESLY LINETTE Not Available Start: 02-12-2024 End: 02-12-2024 ambulatory STEPHEN DOMINIQUE Not Available Start: 12-11-2023 End: 12-11-2023 ambulatory STEPHEN DOMINIQUE Not Available Start: 11-27-2023 End: 11-27-2023 ambulatory WESLY LINETTE Not Available Start: 11-20-2023 End: 11-20-2023 ambulatory WESLY LINETTE Not Available Start: 11-13-2023 End: 11-13-2023 ambulatory WESLY LINETTE Not Available Start: 10-27-2023 End: 10-27[facility] Start: 10-27-2023 End: 10-27-2023 Emergency department patient visit CONCHA YEBOAH DARCI [facility] Start: 2023 End: 2023 flow sheet Wesly Linette DO Work Phone: [facility] Comment on above: Third trimester preg mamadou Start: 2023 End: 2023 ambulatory WESLY LINETTE Not Available Start: 10-09-2023 End: 10-09-2023 ambulatory STEPHEN FOX Not Available Start: 10-04-2023 End: 10-04-2023 ambulatory Liberty Pierre Other [facility] Other Start: 10-04-2023 Office outpatient vi sit 15 minutes Liberty Pierre [facility] Start: 09-25-2023 End: 09-25-2023 ambulatory WESLY LINETTE Not Available Start: 09-21-2023 End: 09-21-2023 ambulatory Liberty Pierre Other [facility] Other Start: 09-21-2023 Office outpatient vi sit 15 minutes Liberty Pierre [facility] Start: 09-18-2023 End: 09-19-2023 ambulatory WESLY SUE [facility] Start: 09-18-2023 End: 09-18-2023 Office outpatient visit 25 minutes Arlette Mustafa MD Work Phone: [facility] Comment on above: Heartburn during pre gnancy in third trimester (Primary Dx); Cardiovascular disease of mother in , antepartum, third trimester; Postural orthostatic tachycardia syndrome; cardiac echogenic focus, antepartum, single or unspecified fetus Start: 08-28-2023 End: 08-28-2023 ambulatory STEPHEN FOX Not Available Start: 07-27-2023 ambulatory MELINA [facility] Start: 07-24-2023 End: 07-24-2023 ambulatory STEPHEN FOX Not Available Start: 07-22-2023 End: 07-22-2023 ambulatory Tiesha Andrews Other [facility] Other Start: 07-22-2023 Office outpatient vi sit 15 minutes Tiesha Andrews [facility] Start: 05-25-2023 End: 05-25-2023 ambulatory Liberty Pierre Other [facility] Other Start: 05-25-2023 Telephone encounter Liberty Pierre [facility] Start: 05-09-2023 End: 05-09-2023 ambulatory Liberty Pierre Other [facility] Other Start: 05-09-2023 Office outpatient vi sit 15 minutes Liberty Pierre [facility] Start: 11-02-2022 End: 11-03-[address] LIBERTY PIERRE Facility: Start: 10-21-2022 End: 10-21-2022 ambulatory Liberty Pierre Other [facility] Other Start: 10-21-2022 Office outpatient vi sit 15 minutes Liberty Pierre [facility] Start: 10-17-2022 End: 10-17-2022 Emergency department patient visit Kaci Morales Facility:[facility] Start: 10-17-2022 End: 10-17-2022 Emergency department patient visit MD Liberty Pierre Work Phone: [facility] Work Phone: Start: 10-04-2022 End: 10-05-[address] CLARY LOYD Facility:[facility] Start: 08-16-2022 End: 08-17-[address] CLARY LOYD Facility:[facility] Start: 07-26-2022 End: 07-27-[address] CLARY LOYD Facility:[facility] Start: 07-19-2022 Well child visit Liberty Pierre Other [facility] Other Start: 07-12-2022 End: 07-13-[address] [...] neoplasm of cervix Pap Smear [facility] Start: 09-18-2024 Adult BMI Screening Adult BMI Screen ing [facility] Start: 09-18-2024 Tobacco Screening Tobacco Screening [facility] Start: 12-06-2023 End: 12-06-2023 Patient encounter procedure 12/06/2023 10:30 AM EDT Office Visit [facility] [address] [place] [phone] Genoveva Bailon MD [address] [place] [address], [address], [address] [place] [phone] [facility] Start: 11-13-2023 End: 11-13-2023 Patient encounter procedure 11/13/2023 1:40 PM EST Routine [facility] [address] [place] [address] Wesly Sue DO [address] [place] [address] [facility] Start: 10-16-2023 End: 10-16-2023 Telemedicine consultation with patient 10/16/2023 2:30 PM EST Telemedicine [facility] [place] [id number] [place] [phone] Arlette Mustafa MD [address] [place], [place] [id number] [facility] Start: 09-18-2023 End: 09-18-2024 Echo complete W/O contrast Echo complete W/O contrast Echocardiography Routine Cardiovascular disease of mother in , antepartum, third trimester Postural orthostatic tachycardia syndrome cardiac echogenic focus, antepartum, single or unspecified fetus Heartburn during in third trimester Expected: 09/18/2023, Expires: 09/18/2024 [facility] Comment on above: Expected: 09/18/2023 , Expires: 09/18/2024 Start: 05-12-2023 Influenza vaccination Influenza Vacc ine [facility] Start: 10-17-2022 Bacteria identified in Urine by Culture [facility] Start: 2019 DTaP,Tdap and Td Vaccines (1 - Tdap) DTaP,Tdap and Td Vaccines (1 - Tdap) [facility] Start: 2012 Depression Screening Depression Scre ening [facility] End: 09-17-2024 ECG 12 lead ECG 12 lead ECG Routine Cardiovascular disease of mother in , antepartum, third trimester Postural orthostatic tachycardia syndrome cardiac echogenic focus, antepartum, single or unspecified fetus Heartburn during in third trimester 1 Occurrences starting 09/18/2023 until 09/17/2024 [facility] Work Phone: Comment on above: 1 Occurrences starti ng 09/18/2023 until 09/17/2024 Patient Education Head Injury in Adults [facility] Work Phone: Patient referral [facility] Work Phone: Immunizations Immunization Date Immunization Notes Care Provider Luisito spencer 04-09-2019 meningococcal oligosaccharide (groups A, C, Y and W-135) diphtheria toxoid conjugate vaccine (MCV4O) Liberty Pierre Other [facility] Other Payers Date Payer Category Payer Medicaid [facility] MEDICAID [facility] MEDICAID [id number] 2023-Present [phone] [address] [place] [address] [id number]. [id number] 2023 Unknown [id number]. 1.13.693.2.7.3. [id number] 2023 Medicaid [id number] 2.16.840.1.978974.19 2022 Self-pay [id number] 2000 Unknown [id number] 2.16.840.1.707447.3.579.2.727 2000 Unknown [id number] 2.16.840.1.600999.3.579.2.593 2000 Unknown [id number] 2.16.840.1.508243.3.579.2.593 2000 Unknown [id number] 2.16.840.1.132700.3.579.2.593 2000 Unknown [id number] 2.16.840.1.006046.3.579.2.593 2000 Unknown [id number] 2.16.840.1.684023.3.579.2.593 2000 Unknown [id number] 2.16.840.1.264662.3.579.2.593 2000 Unknown [id number] 2.16.840.1.638220.3.579.2.593 2000 Unknown [id number] 2.16.840.1.607441.3.579.2.1286 2000 Unknown [id number] 2.16.840.1.062567.3.579.2.1286 2000 Unknown [id number] 2.16.840.1.503706.3.579.2.1286 2000 Unknown [id number] 2.16.840.1.753143.3.579.2.1286 2000 Unknown [id number] 2.16.840.1.686016.3.579.2.1286 2000 Unknown [id number] 2.16.840.1.961881.3.579.2.1286 2000 Unknown [id number] 2.16.840.1.708277.3.579.2.1259 2000 Unknown [id number] 2.16.840.1.796539.3.579.2.1259 2000 Unknown [id number] 2.16.840.1.161340.3.579.2.9 2000 Unknown [id number] 2.16.840.1.370394.3.579.2.1259 2000 Unknown [id number] 2.16.840.1.941133.3.579.2.9 2000 Unknown [id number] 2.16.840.1.160744.3.579.2.1259 2000 Unknown [id number] 2.16.840.1.235568.3.579.2.9 2000 Unknown [id number] 2.16.840.1.082402.3.579.2.1259 2000 Unknown [id number] 2.16.840.1.038861.3.579.2.9 2000 Unknown [id number] 2.16.840.1.778219.3.579.2.9 2000 Unknown [id number] 2.16.840.1.481715.3.579.2.1259 1979 Unknown [id number] 2.16.840.1.372629.3.579.2.727 1959 Unknown [id number] Unknown [id number] 2.16.840.1.630760.3.579.2.531 Unknown [id number] Social History Date Type Detail Facility Start: 05-31-2022 End: 05-22-2023 Tobacco smoking status Never smoked tobacco (finding) [facility] Tobacco smoking status Never [facility] [place] Start: 05-22-2023 End: 09-18-2023 Sex Assigned At Female [facility] Start: 10-17-2022 Tobacco smoking stat us NHIS Smoker (finding) [facility] Start: 2000 Sex Assigned At Female F [facility] Start: 05-22-2023 End: 06-16-2023 Tobacco use and exposure Smokeless tobacco non-user [facility] Start: 09-18-2023 End: 2023 Alcohol intake Lifetime non-drinker (finding) [facility] Start: 05-22-2023 End: 09-18-2023 History of Social function [facility] Start: 03-16-2023 [facility] Start: 2000 Sex Assigned At Not on file [facility] Functional Status Date Assessment Result Facility 05-31-2022 Functional Status N/A [facility] Clinical Notes 02-07-2022 to 2023 Lizette Bautista [...] metoclopramide, metoprolol succinate xl, midodrine, ondansetron, pr duane 400 ec, promethazine, and pyridoxine. Medical History: [...] nursing note reviewed. Exam conducted with a live study manager present. Patient presents today for a [...] Wesly Sue DO documented in this encounter [facility] 10-04-2023 Evaluation note Encounter Date Diagnosis Assessment Notes Sep, Acute non-recurrent maxillary sinusitis (ICD-10 - J01.00) Finish antibiotics WIll notify her OB work note given. [facility] Other 01-11-2024 Evaluation note* Encounter Date Diagnosis Assessment Notes Treatment Notes Treatment Clinical Notes Sep, Viral URI (ICD-10 - J06.9) Ok to stop azithromycin as she likely has a viral infection. Recommend halls and robitussin for cough. 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 Sep, Tachycardia (ICD-10 - R00.0) Advised her to stay hydrated. She doesn't know how or have a smart watch to track her pulse at home. Advised to come in for vitals, discuss w Dr. Sue next week. She will have her mom check her pulse. Noted history of NCS. [facility] Other 01-08-2024 History of Present illness Narrative* [...] was 32 minutes. 24 minutes were direct [id number] for counseling and coordination of care during visits itself. An additional 3 minutes or for same day preparation to see the patient. Another 6 minutes were needed were needed to prepare report and or to perform other duties to complete visit. Thank you for sending this patient. Arlette Mustafa MD Maternal Medicine Professor, [facility] [phone] Office [phone] Personal Cell Phone Office Note: Patient Active [...] had neurocardiogenic syncope. The patient saw a alumni relations officer that recommended EKG and echocardiogram. The problem list indicates a shortened SC interval. The patient is unaware of pre-excitation [...] wanted the patient to be seen by alumni relations officer. If this diagnosis is not want the [...] of affects and embryo affects. We reviewed [employer] database. Case reports in human have been [...] considered clinically significant by most. Most recent [facility] guidelines recommend cell free DNA screening [...] care primary OB provider. documented in this encounterPremier HealthCieo Creative Inc. [facility] [id number] NoteSubjective Senthil Scott is a 22 y.o. 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 Social [...] No Known Allergies Medications Current Outpatient Medications: [id number] 29-1-400 mg combo pack,tablet and cap,DR, Take [...] and other tests EKG 07/17/23: NSR, short SC interval Assessment/Plan Diagnoses and all orders for [...] Ambulatory referral to Cardiac Electrophysiology; Future Shortened SC interval Pre-syncope - Will order an echocardiogram - she has known vasovagal syncope Previously under control with midodrine daily I discussed with Dr. Max, who is our expert on syncope and vasovagal syncope He has used midodrine in patients and believes it is safe He also felt that symptoms should gradually improve in the next few weeks 2. Short SC interval on EKG: Consider event monitor and EP evaluation if having palpit (more content not included)...[facility]11-11-2023 Evaluation note* Encounter Date Diagnosis Assessment Notes [...] Robitussin for the cough. Follow-up with your CELL RELINER if no improvement in 2 to 3 days. Off work tomorrow and Monday, may return to work on Monday. Jul, Sore throat (ICD-10 - J02.9) [facility] Other 08-29-2023 Evaluation note* Encounter Date Diagnosis Assessment Notes Treatment Notes Treatment Clinical Notes Apr, Mild intermittent reactive airway disease without complication (ICD-10 - J45.20) Discussed her symptoms and agreed to HFA prn. Apr, Neurocardiogenic syncope (ICD-10 - R55) Midodrine is catagory C and she has been off of it for a few weeks. Will not refill and notify Dr. Sue. [facility] Other 02-10-2023 Evaluation note* Encounter Date Diagnosis Assessment Notes Treatment Notes Treatment Clinical Notes Oct, Neurocardiogenic syncope (ICD-10 - R55) Increased dose of med. Has been through workup with [facility]. Will refer to Neurology to r/o seizure component. Note given for work. [facility] Other 01-24-2023 NotePROCEDURE: XR TIB_FIB LT 2V HISTORY: Pain in lower limb ; persistent mid lower leg pain; follow-up stress reaction COMPARISON: XR tib-fib left 08/16/2022 FINDINGS: BONES:No fracture, dislocation, or periosteal reaction. SOFT TISSUES:No visible soft tissue swelling. EFFUSION:None visible. OTHER: Negative. IMPRESSION: 1. No suspicious bone abnormality. Electronically authenticated by: CLARY LOYD Date: 2022-10-04 15:34[facility]12-06-2022 NotePROCEDURE: XR TIB_FIB LT 2V, XR [...] Electronically authenticated by: CLARY LOYD Date: 2022-08-16 09:39[facility]12-06-2022 NotePROCEDURE: XR TIB_FIB LT 2V, XR [...] Electronically authenticated by: CLARY LOYD Date: 2022-08-16 09:39[facility]11-15-2022 NotePROCEDURE: XR ANKLE LT MIN 3 V HISTORY: Pain of left ankle joint ; follow-up ankle sprain COMPARISON: XR ankle left 07/12/2022 FINDINGS: BONES:No fracture, acute abnormality, or significant arthropathy. SOFT TISSUES:No visible soft tissue swelling. EFFUSION:None visible. OTHER: Negative. IMPRESSION: 1. No acute bone abnormality or appreciable degenerative changes. Electronically authenticated by: CLARY LOYD Date: 2022-07-26 15:21[facility]11-01-2022 NotePROCEDURE: XR ANKLE LT MIN 3 V COMPARISON: None. HISTORY: Injury of left ankle FINDINGS: BONES:No fracture, acute abnormality, or significant arthropathy. SOFT TISSUES:Negative. No visible soft tissue swelling. EFFUSION:None visible. OTHER: Negative. IMPRESSION: No acute disease. Electronically authenticated by: CHERRIE FLORES Date: 2022-07-12 13:06[facility]09-20-2022 NoteChief Complaint consultation for abdominal pain [...] Daily, # 30 cap(s), Refills(s) 3, [facility]: [facility], 163.8, cm, 05/31/22 14:35:00 EDT, Height/Length Dosing, 53.6, kg, 05/31/22 14:35:00 EDT, Weight Dosing 2. Marijuana use, continuous (F12.90: Cannabis use, unspecified, uncomplicated) see # 1 Ordered: omeprazole, 20 mg = 1 cap(s), Oral, Daily, # 30 cap(s), Refills(s) 3, [facility]acy: [facility], 163.8, cm, 05/31/22 14:35:00 EDT, Height/Length Dosing, 53.6, kg, 05/31/22 14:35:00 EDT, Weight Dosing 3. Anxiety (F41.9: Anxiety disorder, unspecified) see # 1 Ordered: omeprazole, 20 mg = 1 cap(s), Oral, Daily, # 30 cap(s), Refills(s) 3, [facility]: [facility], 163.8, cm, 05/31/22 14:35:00 EDT, Height/Length [...] refills Allergies Macrobid (Vomi (more content not included)...[facility]:Result Comment: Electronically Signed By: VICTORIA FRANK, Sal Cam\Date and Time Signed: 05/31/22 17:28 [id number] NotePatient Education Materials Follows:Disease COVID-19: What to [...] yourself. Get rest and stay hydrated. Take tzkh-icg-sifyygl medicines, such as acetaminophen, to help you [...] to your local emergency facility: Notify the hardening machine operator helper that you are seeking care for someone [...] household. ? You can visit your state, [place], local, and [facility] department's website to look for the [...] clean your hands with an alcohol-based hand law firm administrator that contains at least 60% alcohol. Clean your hands often ? Wash your hands often with soap and water for at least 20 seconds. This is especially important after blowing your nose, coughing, or sneezing; going to the bathroom; and before eating (more content not included)...[facility] Evaluation + Plan note No data available for this section [facility] [place] Evaluation noteNo assessment information available [facility] Work Phone: Evaluation noteNo InformationNortExcela [facility] Other Evaluation note* Diagnosis Heartburn during in third trimester- Primary Cardiovascular disease of mother in , antepartum, third trimester Postural orthostatic tachycardia syndrome Unspecified tachycardia cardiac echogenic focus, antepartum, single or unspecified fetus documented [facility]* Diagnosis Third trimester state, incidental documented [...] ARM 2016 Hospitalization History SEE SURGICAL HX [facility] Other Hospital Discharge instructions No data available for this section [facility] Discharge instructions Additional Instructions Push fluids Rest Avoid marijuana use Follow-up with your doctor call tomorrow for appointment Return if any problems persist or worsen including chest pain, shortness of breath, numbness, tingling, unilateral weakness or any other concern Take antibiotic as instructed until [facility] Work Phone: InstructionsNot on filedocumented in this encounter [facility] CenterTr[facility] ArchiveProgress note No data available for this section General Surgery [place] Summary Purpose Family History No Family History [...] Echo complete W/O contrast Arlette Mustafa MD [address] [place] [address] Referral ID Status Reason Start Date Expiration Date V isits Requested Visits Authorized [id number] Pending Review 09/18/2023 09/17/2024 1 1 Specialty Diagnoses / Procedures Referred By William huerta Referred To Contact Diagnoses Cardiovascular disease of mother in , antepartum, third trimester Postural orthostatic tachycardia syndrome cardiac echogenic focus, antepartum, single or unspecified fetus Heartburn during in third trimester Procedures ECG 12 lead Arlette Mustafa MD [address] [place] [id number] Referral ID Status Reason Start Date Expiration Date V isits Requested Visits Authorized [id number] Pending Review 09/18/2023 09/17/2024 1 1 Reason 11/23/22 Possible seizure - labs and CT at [facility]. Diagnosis 1 Neurocardiogenic syn cope (R55) Referral Organization [facility] Gabo boykin Referring Provider First Name Liberty Referring Provider Last Name Ignacio Referring Provider Specialty Family [facility] Referred Organization [facility] Referred Provider Avril Irving Referred Address [address] [place], [place],[address] Referred Provider Specialty Neurology Referral Priority Routine [...] and content) DATE CREATED AUTHOR 12/23/2020 [facility] DATE CREATED AUTHOR AUTHOR'S ORGANIZ ATION 02/10/2022 [facility] DATE CREATED AUTHOR AUTHOR'S ORGANIZ ATION 06/11/2022 [facility] DATE CREATED AUTHOR AUTHOR'S ORGANIZ ATION 10/25/2022 [facility] DATE CREATED AUTHOR AUTHOR'S ORGANIZ ATION 11/06/2022 [facility] DATE CREATED AUTHOR AUTHOR'S ORGANIZ ATION 08/17/2023 [facility] DATE CREATED AUTHOR AUTHOR'S ORGANIZ ATION 09/24/2023 [facility] DATE CREATED AUTHOR AUTHOR'S ORGANIZ ATION 10/29/2023 [facility] DATE CREATED AUTHOR AUTHOR'S ORGANIZ ATION 03/06/2024 [facility] EPIC Care Team (unrecognized sect ion and content) Team Status: Inactive Member Role Status Dates Liberty Pierre MD Primary Care Provider Active Kaci Morales APRN Emergency Provider Active Team Status: Active Member Role Status Dates Liberty Pierre MD Primary Care Provider Active Cooker Loader Relationship Specialty Start Date End Date Liberty Pierre MD [address] [place] [phone] PCP - General Family Medicine 05/04/23 Goals [...] BE BASED ON THE PRIMARY CLINICAL RECORDS. [employer] [facility]. provides no warranty or guarantee of the accuracy or completeness of information in this document.
--- NOTE | 2024-08-13 11:17 | CT_ITS ---
[address] [address] Patient Name: SENTHIL SCOTT MRN: [id number] date: 2000 Sex: F Assigned Patient Location: ER Current Patient Location: Accession/Order Number: [id number] Exam Date: 08/13/2024 12:04 Report Date: 08/13/2024 13:04 At the request of: ROBERT FELIZ Procedure: CT abdomen pelvis w con EXAMINATION: CT abdomen pelvis w con HISTORY: RUQ RLQ pain COMPARISON: No relevant comparison available. TECHNIQUE: CT images were created with IV contrast. Axial, Coronal, and Sagittal images. Dose reduction techniques were achieved by using automated exposure control and/or adjustment of mA and/or kV according to patient size and/or use of iterative reconstruction technique. FINDINGS: LUNG BASES: No visible pulmonary or pleural disease. LIVER: No enlargement, atrophy, abnormal density, or significant focal lesion. BILIARY: No visible dilatation or calcification. PANCREAS: No lesion, fluid collection, ductal dilatation, or atrophy. SPLEEN: No enlargement or focal lesion. ADRENALS: No mass or enlargement. KIDNEYS: No mass, obstruction, or calcification. BOWEL/MESENTERY: No visible mass, obstruction, or bowel wall thickening. Normal appendix AORTA/VASCULAR: No aneurysm or dissection. RETROPERITONEUM: No mass or adenopathy. LYMPH NODES: No adenopathy. URINARY BLADDER: No visible focal wall thickening, lesion, or calculus. PELVIC ORGANS: No visible mass. Pelvic organs appropriate for patient age. ABDOMINAL WALL: No mass or hernia. BONES: No bony lesion or fracture. OTHER: Negative. CT/CT abdomen pelvis w con IMPRESSION: No acute intraperitoneal abnormality Electronically authenticated by: CHERRIE FLORES Date: 08/13/2024 13:04
--- NOTE | 2024-08-13 11:21 | ED_ITS ---
HPI HPI - General Adult General Chief complaint: Urogenital-Female Stated complaint: flank pain Time Seen by Provider: 08/13/24 10:41 Source: patient Mode of arrival: walk-in Limitations: no limitations History of Present Illness HPI narrative: Patient presents to ED complaining of right sided abdominal pain. She said it started about 3 days ago but was much worse this morning. She has pain in the right upper quadrant and right lower quadrant. She does still have her gallbladder and her appendix. She had a baby in November and said she had a complicated . She said she needed 3 units of blood after her surgery. Baby is doing fine now. She said she has not been vomiting. No fever. She is having normal bowel movements but does complain of some pain with urination. She said her abdominal pain was worse after eating. No other complaints at this time Related Data Home Medications ?Medication ?Instructions ?Recorded ?Confirmed midodrine 5 mg tablet 2.5 mg PO DAILY 01/31/24 08/13/24 Allergies Allergy/AdvReac Type Severity Reaction Status Date / Time cefdinir Allergy Rash Verified 08/13/24 10:42 nitrofurantoin (From Allergy RASH Verified 08/13/24 10:42 Macrobid) Opioid HPI Opioid Management Most Recent Opioid Data: Last Pain Scale 5 08/13/24 11:32 08/13/24 Last MAR Pain Assessment 08/13/24 11:32 Ur Phencyclidine Scrn Negative (NEGATIVE) 11/30/23 06:15 11/10 10/04 Review of Systems ROS Status of ROS 10 or more systems reviewed and unremark able except as noted in history and below PFSH PFSH Medical History (Updated 08/13/24 @ 13:18 by Zahida Pisano DO) delivery delivered ?O82 - Encounter for delivery without indication (ICD-10) Social History Smoking status: Former smoker Little interest or pleasure in doing things: not at all Feeling down, depressed, or hopeless: not at all Exam Narrative Exam Narrative: Time Seen: [] Vital Signs: [Per nurse's notes.] General: [Alert] Skin: [Warm, dry, no rash.] Head: [Normocephalic, atraumatic.] Neck: [Supple, trachea midline.] Eye: [Pupils are equal, round and reactive to light, extraocular movements are intact, normal conjunctiva.] Ears, nose, mouth and throat: oral mucosa moist. Cardiovascular: [Regular rate and rhythm, no murmur.] Respiratory: [Lungs are clear to auscultation, respirations are non-labored, breath sounds are equal.] Chest wall: [No tenderness, no deformity.] Gastrointestinal: [Soft, moderate right upper quadrant and right lower quadrant tenderness, mild guarding non distended, normal bowel sounds.] MSK: 5 out of 5 muscle strength x 4 extremities no calf pain or edema Lymphatics: [No lymphadenopathy.] Psychiatric: [Cooperative, appropriate mood & affect.] Neurological: [Alert and oriented to person, place, time, and situation, no focal neurological deficit observed.] Constitutional Vital Signs, click to edit/add: Last Vital Signs Temp 98.3 F 08/13/24 10:42 Pulse 64 08/13/24 12:26 Resp 18 08/13/24 13:23 BP 138/88 08/13/24 13:23 Pulse Ox 98 08/13/24 13:23 O2 Del Method Room Air 08/13/24 12:26 Course Vital Signs Vital signs: Vital Signs Temperature 98.3 F 08/13/24 10:42 Pulse Rate 70 08/13/24 10:42 Respiratory Rate 16 08/13/24 10:42 Blood Pressure 109/61 08/13/24 10:42 Pulse Oximetry 96 08/13/24 10:42 Oxygen Delivery Method Room Air 08/13/24 10:42 Temperature 98.3 F 08/13/24 10:42 Pulse Rate 64 08/13/24 12:26 Respiratory Rate 18 08/13/24 13:23 Blood Pressure 138/88 08/13/24 13:23 Pulse Oximetry 98 08/13/24 13:23 Oxygen Delivery Method Room Air 08/13/24 12:26 Medical Decision Making MDM Narrative Medical decision making narrative: Patient's labs are negative for acute findings. CT scan does not show any acute findings. Patient is feeling better after IV and medications here. No , no UTI. No bowel obstruction. Patient was instructed to follow-up with her family doctor or certainly return to the ER if worsening symptoms. She is comfortable with care plan for home. Differential Diagnosis Differential Diagnosis: Small bowel obstruction, acute appendicitis, acute cholecystitis, pancreati Medical Records Medical records reviewed: Yes I reviewed the patient's medical records Lab Data Lab results reviewed: Yes I reviewed the patient's lab results Labs: Lab Results 08/13/24 08/13/24 Range/Units 11:25 11:28 WBC 6.7 (4.0-11.0) 10^3/uL RBC 4.11 L (4.20-5.40) 10^6/uL Hgb 11.7 L (12.0-16.0) g/dL Hct 35.7 L (36.0-48.0) % MCV 86.9 (81.0-99.0) fL MCH 28.5 (26.7-34.0) pg MCHC 32.8 (29.9-35.2) g/dL RDW 14.0 (11.0-15.0) % Plt Count 202 (150-450) 10^3/uL MPV 9.9 (9.5-13.5) fL Neut % (Auto) 69.9 (43.0-75.0) % Lymph % (Auto) 23.5 (20.5-60.0) % [place] % (Auto) 5.0 (1.7-12.0) % Eos % (Auto) 1.1 (0.9-7.0) % Baso % (Auto) 0.3 (0.2-2.0) % Neut # (Auto) 4.7 (1.4-6.5) 10^3/uL Lymph # (Auto) 1.6 (1.2-3.8) 10^3/uL [place] # (Auto) 0.3 (0.3-0.8) 10^3/uL Eos # (Auto) 0.1 (0.0-0.7) 10^3/uL Baso # (Auto) 0.0 (0.0-0.1) 10^3/uL Abs Immat Gran (auto) 0.01 (0.00-0.03) 10^3/uL Imm/Tot Granulo (auto) 0.2 (0.0-0.5) % Sodium 144 (136-145) mmol/L Potassium 3.9 (3.5-5.1) mmol/L Chloride 108 H (98-107) mmol/L Carbon Dioxide 26.3 (21.0-32.0) mmol/L Anion Gap 13.6 BUN 14.0 (7.0-18.0) mg/dL Creatinine 0.77 (0.55-1.02) mg/dL Est GFR ( Amer) >60 (>=60 mL/min/1.73m^2) Est GFR (Non-Af Amer) >60 (>=60 mL/min/1.73m^2) BUN/Creatinine Ratio 18.2 Glucose 90 (74-106) mg/dL Calcium 8.7 (8.5-10.1) mg/dL Total Bilirubin 0.6 (0.2-1.0) mg/dL AST 18 (15-37) U/L ALT 21 (14-59) U/L Alkaline Phosphatase 55 (46-116) U/L Total Protein 6.9 (6.4-8.2) g/dL Albumin 4.0 (3.4-5.0) g/dL Globulin 2.9 g/dL Albumin/Globulin Ratio 1.4 Lipase 63.0 (16.0-77.0) U/L Urine Color Yellow (YELLOW) Urine Clarity Clear (CLEAR) Urine pH 6.5 (5.0-9.0) Ur Specific [place] 1.025 (1.005-1.025) Urine Protein Trace (NEG/TRACE) mg/dL Urine Glucose (UA) Negative (NEGATIVE) mg/dL Urine Ketones Trace A (NEGATIVE) mg/dL Urine Occult Blood Negative (NEGATIVE) Urine Nitrite Negative (NEGATIVE) Urine Bilirubin Negative (NEGATIVE) Urine Urobilinogen 0.2 (0.2-1.0) EU/dL Ur Leukocyte Esterase Negative (NEGATIVE) Urine HCG, Qual Negative (NEGATIVE) Imaging Data CT scan - abdomen: Radiologist's impression: ITS Impressions Abdomen/Pelvis CT 08/13/24 11:17 IMPRESSION: No acute intraperitoneal abnormality Electronically authenticated by: CHERRIE FLORES Date: 08/13/2024 13:04 Discharge Plan Discharge Chief Complaint: Urogenital-Female Clinical Impression: Abdominal pain Patient Disposition: Home, Self-Care Time of Disposition Decision: 13:18 Condition: Good Mode of Transportation: Private Vehicle Prescriptions / Home Meds: No Action midodrine 5 mg tablet 2.5 mg PO DAILY Print Language: Persian Instructions: Abdominal Pain (ED) Referrals: Toña Pabon MD [Primary Care Provider] - 1 week Discharge Date/Time: 08/13/24 13:24
[2024-08-13] MEDS: ONDANSETRON PF 4 MG/2 ML VIAL IV (11:31)
[2024-08-13] MEDS: KETOROLAC TROMETHAMINE 30 MG/ML VIAL 15 MG IVP (11:32)
[2024-08-13 11:37] LABS: Basophils Percent Auto 0.3 % (0.2-2.0); Eosinophils Absolute Auto 0.1 10^3/uL (0.0-0.7); Eosinophils Percent Auto 1.1 % (0.9-7.0); Hematocrit 35.7 % (36.0-48.0); Hemoglobin 11.7 g/dL (12.0-16.0); Immature Granulocytes Abs Auto 0.01 10^3/uL (0.00-0.03); Immature Granulocytes Pct Auto 0.2 % (0.0-0.5); Lymphocytes Absolute Auto 1.6 10^3/uL (1.2-3.8); Lymphocytes Percent Auto 23.5 % (20.5-60.0); Mean Corpuscular HGB Conc 32.8 g/dL (29.9-35.2); Mean Corpuscular Hemoglobin 28.5 pg (26.7-34.0); Mean Corpuscular Volume 86.9 fL (81.0-99.0); Mean Platelet Volume 9.9 fL (9.5-13.5); Monocytes Absolute Auto 0.3 10^3/uL (0.3-0.8); Neutrophils Absolute Auto 4.7 10^3/uL (1.4-6.5); Neutrophils Percent Auto 69.9 % (43.0-75.0); Platelet Count 202 10^3/uL (150-450); Red Blood Count 4.11 10^6/uL (4.20-5.40); White Blood Count 6.7 10^3/uL (4.0-11.0)
[2024-08-13 11:38] LABS: HCG Qualitative Urine* NEGATIVE (NEGATIVE); Internal Control Within Normal Limits
[2024-08-13 11:56] LABS: Alanine Aminotransferase 21 U/L (14-59); Albumin Globulin Ratio 1.4; Alkaline Phosphatase 55 U/L (46-116); Anion Gap 13.6; Aspartate Amino Transferase 18 U/L (15-37); BUN Creatinine Ratio 18.2; Bilirubin Total 0.6 mg/dL (0.2-1.0); Calcium 8.7 mg/dL (8.5-10.1); Carbon Dioxide 26.3 mmol/L (21.0-32.0); Chloride 108 mmol/L (98-107); Estimated GFR (African America >60 (>=60 mL/min/1.73m^2); Estimated GFR (Non-African Ame >60 (>=60 mL/min/1.73m^2); Globulin 2.9 g/dL; Glucose 90 mg/dL (74-106); Potassium 3.9 mmol/L (3.5-5.1); Sodium 144 mmol/L (136-145); Total Protein 6.9 g/dL (6.4-8.2)
[2024-08-13 12:26] VITALS: BP 90/53; PULSE 64; O2SAT 96
[2024-08-13 13:11] LABS: Bilirubin Urine NEGATIVE (NEGATIVE); Blood Urine NEGATIVE (NEGATIVE); Clarity Urine CLEAR (CLEAR); Color Urine YELLOW (YELLOW); Glucose Urine UA NEGATIVE (NEGATIVE); Ketones Urine TRACE mg/dL (NEGATIVE); Leukocyte Esterase Urine NEGATIVE (NEGATIVE); Nitrite Urine NEGATIVE (NEGATIVE); Protein Urine TRACE mg/dL (NEG/TRACE); Specific Gravity Urine 1.025 (1.005-1.025); Urobilinogen Urine 0.2 EU/dL (0.2-1.0); pH Urine 6.5 (5.0-9.0)
[2024-08-13 13:12] LABS: Urine Microscopic Indicated NO
[2024-08-13 13:23] VITALS: BP 138/88; O2SAT 98
== END 2024-08-13 13:24 | disposition home or self-care (01) ==
PROVIDERS: Emergency Provider Emergency Medicine; PCP Family Medicine
DX: R10.11 Right upper quadrant pain (principal); R10.31 Right lower quadrant pain; Z87.891 Personal history of nicotine dependence
CPT/HCPCS: 36415; 74177; 80053; 81003; 83690; 84703; 85025; 96374; 96375; 99284; J1885; J2405; Q9967

== ENCOUNTER 2024-08-29 11:20 | Emergency (ER) | payer OTHER, SELFPAY ==
--- OUTSIDE RECORDS SUMMARY | 2024-08-29 11:28 | XMS_ITS | CCD ---
Author Organization [facility] Care Team Providers Care Real Estate Services Coordinator Name Role Phone LIBERTY PIERRE Primary Care Physician [phone] IGNACIO PROVIDERLIBERTY Referring Unavailab Sal Cazares Attending Unavailable Wesly SUE Referring Unavailable Sal DOWNS Attending Unavailable MD Liberty Pierre Primary Care Provider [phone] CRISTIN Morales Emergency Provider Kaci Morales Attending [...] Unavailable Liberty Pierre MD Primary Care Provider [phone] TANYA JUAN Admitting Unavailable TANYA JUAN Attending [...] [cefdinir] Drug Allergy Vomiting (disorder) General [facility] (8 sources) NITROFURANTOIN, MACROCRYSTALS / Nitrofurantoin, Monohydrate; Translations: [nitrofurantoin] Drug Allergy Vomiting (disorder) General [facility] (1 source) Penicillins Drug allergy (disorder) 11-01-19 22 [facility] Repository (5 sources) patient allergy list reviewed by nurse or physicia Propensity to adverse reactions 04-09-20 19 Comment:Done [facility] Other (5 sources) Allergies Reconciled Propensity to adverse reactions 07-26-20 21 Unknown [facility] Other (2 sources) cefdinir Drug Allergy 07-11-20 23 Unknown [facility] Work Phone: (2 sources) Nitrofurantoin Drug Allergy 07-11-20 23 Unknown [facility] Medications Current Medications Medication Drug Class(es) Dates Sig (Normalized) Sig (Original) [id number] 200 actuat albuterol 0.09 mg/actuat metered dose [...] 14, 2020 12:00am take [facility] Midodrine HCl 5 MG 1 tablet Orally Twice a day for 30 days Active omeprazole 20 mg delayed release oral capsule (4 sources) Proton Pump Inhibitor Start: 09-18-2023 take 1 capsule by mouth in the morning omeprazole (PriLOSEC) [address] capsule Take 20 mg by mouth in the morning. 0 09/18/2023 Active Start: 05-31-2022 take 1 capsule by mo [facility] once daily omeprazole 20 mg Cap-DR 20 mg = 1 cap(s), Oral, Daily, # 30 cap(s), Refills(s) 3, Pharmacy: [facility], 163.8, cm, 05/31/22 14:35:00 EDT, Height/Length [...] morning. 90 capsule 3 09/12/2023 09/11/2024 Active Bkqcvu-OgBhf-OoTak-FA-CA- [place] ([place] 400 ec) 29-1-200 & 400 MG (DR) misc (2 sources) take 1 tablet by mouth in the morning Lsjyfj-YcBck-TqYzu-FA-CA -[place] ([place] Hilary 400 ec) 29-1-200 & 400 MG [...] disease (1 source) Atherosclerotic heart disease of unga coronary artery without angina pectoris; Translations: [Atherosclerotic heart disease of unga coronary artery without angina pectoris] Onset: 4 [...] UA Clear [facility] Color, UA Yellow [facility] Glucose, UA Negative Negative - 1999(110) ++++ mg/dL [facility] Interpretation and review of laboratory results Normal [facility] Ketones, UA Negative Negative - 160(16) ++++ mg/dL [facility] Leukocytes, UA Negative Negative - 500+++ Elijah/mcL [facility] Nitrite, UA Negative Negative - Positive [facility] pH, UA 6.0 5 - 9 [facility] Protein, UA Negative Negative - 1999(20) ++++ mg/dL [facility] Spec Grav, UA 1.025 1 - 1.03 [facility] Urobilinogen, UA 0.2 0.2 - 12 mg/dL [facility] 36on 08-15-2023 36 Msg left on patients phone today regarding telehealth. 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 pyogenes Org specific cx Ql (Throat) Negative [facility] Other Quick Strep [facility] Other MRI LEG LT WO CONon 11-03-19 [...] CHERRIE ROOT Date: 2022-11-02 23:11 Normal [facility] Amphetamine Screen Ql (U)Ord ered By: Kaci Morales on 10-17-2022 Amphetamines Ql (U) Negative Negative [facility] Automated erythrocytes count in urine sediment (number/area)Ordered By: Kaci Morales on 10-17-2022 RBC Auto (Urine sed) [#/Area] 20-49 [HPF] 0-[address] [facility] Automated leukocytes count i n urine sediment (number/area)Ordered By: Kaci Morales on 10-17-2022 WBC Auto (Urine sed) [#/Area] 20-49 [HPF] 0-[address] [facility] Automated urine hyaline cast s count (number/volume)Ordered By: Kaci Morales on 10-17-2022 Hyaline casts Auto (U) [#/Vol] None seen [LPF] 0-[address] [facility] Automated urine sediment joe cium oxalate crystal count by microscopy (number/high powOrdered By: Kaci Morales on 10-17-2022 Calcium oxalate crystals LM.HPF (Urine sed) [#/Area] 3+ [HPF] [facility] Barbiturates [Presence] in U rineOrdered By: Kaci Morales on 10-17-2022 Barbiturates Ql (U) Negative Negative [facility] Basic Metabolic Panelon Anion gap [Moles/Vol] 13.2 mmol/L Normal 6.0-15.0 [facility] Comment on above: Performed By: #### H S TROP, BMP, CBC #### [facility] [address] Calcium [Mass/Vol] 9.5 mg/dL Normal 8.2-10.2 [facility] Comment on above: Performed By: #### H S TROP, BMP, CBC #### [facility] [address] [place] [address] [place] Chloride [Moles/Vol] 103 mmol/L Normal 95-114 [facility] Comment on above: Performed By: #### H S TROP BMP, CBC #### [facility] [address] CO2 [Moles/Vol] 25.5 mmol/L Normal 22.0-30.0 [facility] Comment on above: Performed By: #### H S TROP BMP, CBC #### [facility] [address] Creatinine [Mass/Vol] 0.80 mg/dL Normal 0.44-1.03 [facility] Comment on above: Performed By: #### H S TROP BMP, CBC #### [address] Creatinine Clr Calc Pharmacy 87.98 [facility] Comment on above: Result Comment: PERF ORMED BY: [place] [address] PATHOLOGIST COPPER PLATER ZEB BASURTO M.D. Performed By: #### H S TROP BMP, CBC #### [address] Estimated GFR ( Adelita > 60 [facility] Comment on above: Result Comment: GFR estimated reference range: According to KDOQI guidelines, <60 ml/min/1.73m2 is sufficient to diagnose a patient with chronic kidney disease. Performed By: #### H S TROP BMP, CBC #### [facility] [address] [place] [address] Estimated GFR (Non- Am > 60 [facility] Comment on above: Performed By: #### H S TROP BMP, CBC #### [facility] [address] [place] [address] Glucose [Mass/Vol] 118 mg/dL High 70-100 [facility] Comment on above: Result Comment: [facility] Glucose Reference Range is dependent on time and content of last meal. Glucose of more than 200 mg/dL in a nonstressed, ambulatory subject supports the diagnosis of Diabetes Mellitus. ADA recommended reference range Performed By: #### H S TROP, BMP, CBC #### [facility] [address] Potassium [Moles/Vol] 3.7 mmol/L Normal 3.5-5.1 [facility] Comment on above: Performed By: #### H S TROP, BMP, CBC #### [facility] [address] Sodium [Moles/Vol] 138 mmol/L Normal 136-146 [facility] Comment on above: Performed By: #### H S TROP, BMP, CBC #### [facility] [address] Urea nitrogen [Mass/Vol] 10 mg/dL Normal 9-[address] [facility] Comment on above: Performed By: #### H S TROP, BMP, CBC #### [facility] [address] [place] [address] [place] Basophils Auto (Bld) [#/Vol] Ordered By: Kaci Morales on 10-17-2022 Basophils (Bld) [#/Vol] 0.0 10*3/uL 0.0-0.[address] [facility] Basophils/100 WBC Auto (Bld) Ordered By: Kaci Morales on 10-17-2022 Basophils/100 WBC (Bld) 0.4 % . [facility] Benzodiazepines [Presence] i n UrineOrdered By: Kaci Morales on 10-17-2022 Benzodiazepines Ql (U) Negative Negative [facility] Bilirubin Test strip Ql (U)O rdered By: Kaci Morales on 10-17-2022 Bilirubin Ql (U) 1+ Negative [facility] CT head/brain wo conon 10-17 CT head/brain wo con [facility] [place] [address] [place] [address] CT Scan Report Signed Patient: Senthil Scott MR#: [id number] 949 : 2000 Acct:[id number] Age/Sex: 21 / F ADM Date: 10/17/22 Loc: ER Room: Type: [facility] ER Attending Dr: Copies to: [...] Maricruz Vick M.D.10/17/2022 5:07 PM Dictation Location: [place] [address] Transcribed By: [facility] 10/17/221706 Dictated By: Maricruz Vick MD 10/17/221703 Signed By: 10/17/221706 Normal [facility] Cannabinoids [Presence] in U rine by Screen methodOrdered By: Kaci Morales on 10-17-2022 Cannabinoids Screen Ql (U) Positive Negative [facility] Comment on above: These are unconfirme [...] (Urine sed) None seen [LPF] None Seen [facility] Color Auto (U)Ordered By: Yuriy Morales on 10-17-2022 Color (U) Dark yellow Yellow [facility] Complete Blood Count Auto Di ffon 10-17-2022 Basophils (Bld) [#/Vol] 0.0 10*3/uL Normal 0.0-0.[address] [facility] Comment on above: Result Comment: PERF ORMED BY: [place] [address] PATHOLOGIST COPPER PLATER ZEB BASURTO M.D. Performed By: #### H S TROP, BMP, CBC #### [address] Basophils/100 WBC (Bld) 0.4 % Normal . [facility] Comment on above: Performed By: #### H S TROP, BMP, CBC #### [address] Eosinophils (Bld) [#/Vol] 0.0 10*3/uL Normal 0.0-0.[address] [facility] Comment on above: Performed By: #### H S TROP, BMP, CBC #### [address] Eosinophils/100 WBC (Bld) 0.4 % Normal . [facility] Comment on above: Performed By: #### H S TROP, BMP, CBC #### [address] Erythrocyte distribution width (RBC) [Ratio] 13.0 % Normal 11.9-15.[address] [facility] Comment on above: Performed By: #### H S TROP, BMP, CBC #### [address] Hematocrit (Bld) [Volume fraction] 37.2 % Normal 34.0-46.[address] [facility] Comment on above: Performed By: #### H S TROP, BMP, CBC #### [facility] [address] [place] [address] [place] Hemoglobin (Bld) [Mass/Vol] 12.4 g/dL Normal 11.8-15.[address] [facility] Comment on above: Performed By: #### H S TROP, BMP, CBC #### [place] [address] [place] Lymphocytes (Bld) [#/Vol] 1.1 10*3/uL Normal 1.00-4.[address] [facility] Comment on above: Performed By: #### H S TROP BMP, CBC #### [address] Lymphocytes/100 WBC (Bld) 14.5 % Normal . [facility] Comment on above: Performed By: #### H S TROP BMP, CBC #### [address] MCH (RBC) [Entitic mass] 29.4 pg Normal 24.7-34.[address] [facility] Comment on above: Performed By: #### H S TROP BMP, CBC #### [address] MCV (RBC) [Entitic vol] 88.6 fL Normal 80-100 F [facility] Comment on above: Performed By: #### H S TROP BMP, CBC #### [address] Mean Corpuscular HGB Conc 33.2 g/dL Normal 32.0-35.[address] [facility] Comment on above: Performed By: #### H S TROP BMP, CBC #### [address] Monocytes (Bld) [#/Vol] 0.4 10*3/uL Normal 0.0-0.[address] [facility] Comment on above: Performed By: #### H S TROP, BMP, CBC #### [place] [address] [place] Monocytes/100 WBC (Bld) 14.49 % Normal 0.00-20.00 F [facility] Comment on above: Performed By: #### H S TROP, BMP, CBC #### [address] Monocytes/100 WBC (Bld) 5.2 % Normal . F [facility] Comment on above: Performed By: #### H S TROP, BMP, CBC #### [address] [place] [address] [place] Neutrophils (Bld) [#/Vol] 5.8 10*3/uL Normal 1.8-7.[address] [facility] Comment on above: Performed By: #### H S TROP, BMP, CBC #### [facility] [address] Neutrophils/100 WBC (Bld) 79.5 % Normal . [facility] Comment on above: Performed By: #### H S TROP, BMP, CBC #### [facility] [address] NRBC% 0.1 /100{WBC} Normal 0-0.[address] [facility] Comment on above: Performed By: #### H S TROP, BMP, CBC #### [address] Platelet mean volume (Bld) [Entitic vol] 7.9 fL Normal 6.3-10.[address] [facility] Comment on above: Performed By: #### H S TROP, BMP, CBC #### [place] [address] [place] Platelets (Bld) [#/Vol] 229 10*3/uL Normal 150-[address] [facility] Comment on above: Performed By: #### H S TROP, BMP, CBC #### [address] RBC (Bld) [#/Vol] 4.19 10*6/uL Normal 3.60-5.00 [facility] Comment on above: Performed By: #### H S TROP, BMP, CBC #### [place] [address] [place] WBC (Bld) [#/Vol] 7.3 10*3/uL Normal 3.8-11.6 [facility] Comment on above: Performed By: #### H S TROP, BMP, CBC #### [place] [address] [place] Creatinine and Glomerular fi ltration rate.predicted panel (S/P/Bld)Ordered By: Kaci Morales on 10-17-2022 Creatinine [Mass/Vol] 0.80 mg/dL 0.44-1.03 [facility] Dipstick and Microscopicon 0 10-17-2022 Appearance (U) Cloudy Critically abnormal Clear [facility] Comment on above: Order Comment: Name Collection Type:: Clean-Voided Midstream Performed By: #### A DDONUAPLUS, UHCG, CUU #### [facility] [address] [place] [address] [place] Bacteria,Urine 1+ High None Seen [facility] Comment on above: Order Comment: Name Collection Type:: Clean-Voided Midstream Performed By: #### A DDONUAPLUS, UHCG, CUU #### [facility] [address] [place] [address] [place] Bilirubin,Urine 1+ High Negative [facility] Comment on above: Order Comment: Name Collection Type:: Clean-Voided Midstream Performed By: #### A DDONUAPLUS, UHCG, CUU #### [facility] [address] [place] [address] [place] Calcium Oxalate Crystals,Urine 3+ Normal [facility] Comment on above: Order Comment: Name Collection Type:: Clean-Voided Midstream Performed By: #### A DDONUAPLUS, UHCG, CUU #### [facility] [address] [place], [place] [id number] [place] Color (U) Dark Yellow Critically abnormal Yellow [facility] Comment on above: Order Comment: Name Collection Type:: Clean-Voided Midstream Performed By: #### A DDONUAPLUS, UHCG, CUU #### [facility] [address] [place] [address] [place] Glucose Ql (U) Normal Normal Normal [facility] Comment on above: Order Comment: Name Collection Type:: Clean-Voided Midstream Performed By: #### A DDONUAPLUS, UHCG, CUU #### [facility] [address] [place] [address] [place] Hyaline Casts,Urine None Seen Normal 0-1 [facility] Comment on above: Order Comment: Name Collection Type:: Clean-Voided Midstream Performed By: #### A DDONUAPLUS, UHCG, CUU #### [facility] [address] [place] [address] [place] Ketones Ql (U) 1+ High Negative [facility] Comment on above: Order Comment: Name Collection Type:: Clean-Voided Midstream Performed By: #### A DDONUAPLUS, UHCG, CUU #### [address] Leukocyte esterase Test strip Ql (U) 2+ High Negative [facility] Comment on above: Order Comment: Name Collection Type:: Clean-Voided Midstream Performed By: #### A DDONUAPLUS, UHCG, CUU #### [address] Nitrite,Urine Negative Normal Negative [facility] Comment on above: Order Comment: Name Collection Type:: Clean-Voided Midstream Performed By: #### A DDONUAPLUS, UHCG, CUU #### [place] [address] [place] Occult Blood,Urine 3+ High Negative [facility] Comment on above: Order Comment: Name Collection Type:: Clean-Voided Midstream Performed By: #### A DDONUAPLUS, UHCG, CUU #### [facility] [address] [place] [address] [place] Othe Crystals,Urine None Seen Normal [facility] Comment on above: Order Comment: Name Collection Type:: Clean-Voided Midstream Performed By: #### A DDONUAPLUS, UHCG, CUU #### [facility] [address] [place] [address] [place] Other Casts,Urine None Seen Normal None Seen [facility] Comment on above: Order Comment: Name Collection Type:: Clean-Voided Midstream Performed By: #### A DDONUAPLUS, UHCG, CUU #### [facility] [address] [place] [address] [place] pH (U) 5.0 [pH] Normal 5.0-9.[address] [facility] Comment on above: Order Comment: Name Collection Type:: Clean-Voided Midstream Performed By: #### A DDONUAPLUS, UHCG, CUU #### [address] Protein (U) [Mass/Vol] 100 mg/dL High Negative Fi [facility] Comment on above: Order Comment: Name Collection Type:: Clean-Voided Midstream Performed By: #### A DDONUAPLUS, UHCG, CUU #### [facility] [address] [place] [address] RBC,Urine 20-49 High 0-[address] [facility] Comment on above: Order Comment: Name Collection Type:: Clean-Voided Midstream Performed By: #### A DDONUAPLUS, UHCG, CUU #### [address] Specificy [place],Urine 1.035 High 1.001-1.[address] [facility] Comment on above: Order Comment: Name Collection Type:: Clean-Voided Midstream Performed By: #### A DDONUAPLUS, UHCG, CUU #### [facility] [address] [place] [address] Squamous Epithelial Cell,Urine 5-9 High 0-[address] [facility] Comment on above: Order Comment: Name Collection Type:: Clean-Voided Midstream Performed By: #### A DDONUAPLUS, UHCG, CUU #### [facility] [address] [place] [address] Urobilinogen,Urine Normal Normal Normal [facility] Comment on above: Order Comment: Name Collection Type:: Clean-Voided Midstream Performed By: #### A DDONUAPLUS, UHCG, CUU #### [address] WBC,Urine 20-49 High 0-[address] [facility] Comment on above: Order Comment: Name Collection Type:: Clean-Voided Midstream Performed By: #### A DDONUAPLUS, UHCG, CUU #### [facility] [address] [place] [address] [place] Drug Screen,Urineon 10-17-19 23 Amphetamine Screen,Urine Negative Normal Negative [facility] Comment on above: Performed By: #### U RDS #### [place] [address] [place] Barbiturate Screen,Urine Negative Normal Negative [facility] Comment on above: Performed By: #### U RDS #### [place] [address] [place] Benzodiazepines Screen,Urine Negative Normal Negative [facility] Comment on above: Performed By: #### U RDS #### [address] Cannabinoid Screen,Urine Positive High Negative [facility] Comment on above: Result Comment: Thes e are unconfirmed results and should not be used for legal purposes. Drug Cut-Off Concentration: AMPH 1000 ng/mL JERRY 200 ng/mL BOBBI 200 ng/mL COCM 300 ng/mL OP 300 ng/mL PCP 25 ng/mL THC 20 ng/mL PERFORMED BY: [place] [address] PATHOLOGIST [employer] PLATER ZEB BASURTO M.D. Performed By: #### U RDS #### [place] [address] [place] Cocaine Screen,Urine Negative Normal Negative [facility] Comment on above: Performed By: #### U RDS #### [place] [address] [place] Opiate Screen,Urine Negative Normal Negative [facility] Comment on above: Performed By: #### U RDS #### [place] [address] [place] Phencyclidine Screen,Urine Negative Normal Negative [facility] Comment on above: Performed By: #### U RDS #### [address] ECG 12 lead ECGon 10-17-2022 ECG 12 lead ECG [facility] [place] [address] [place] [address] Electrocardiograph Report Signed Patient: Senthil Scott MR#: [id number] 949 : 2000 Acct:[id number] Age/Sex: 21 / F ADM Date: 10/17/22 Loc: ER Room: Type: [facility] ER Attending Dr: Ordering Provider: Kaci Morales [...] Rightward axis Confirmed by Hai DUFFY DO ([id number]) on 10/17/2022 6:46:54 PM Referred By: Electronically Signed By:Hai DUFFY DO Transcribed By: MUS Signed By Hai Duffy DO 0 10/17/[address] [facility] Eosinophils Auto (Bld) [#/Vo l]Ordered By: Kaci Morales on 10-17-2022 Eosinophils (Bld) [#/Vol] 0.0 10*3/uL 0.0-0.[address] [facility] Eosinophils/100 WBC Auto (Bl d)Ordered By: Kaci Morales on 10-17-2022 Eosinophils/100 WBC (Bld) 0.4 % . [facility] Erythrocyte distribution wid th Auto (RBC) [Ratio]Ordered By: Kaci Morales on 10-17-2022 Erythrocyte distribution width (RBC) [Ratio] 13.0 % 11.9-15.[address] [facility] Estimated glomerular filtrat ion rate (GFR) non- AmericanOrdered By: Kaci Morales on 10-17-2022 GFR/1.73 sq M.predicted among non-blacks MDRD (S/P/Bld) [Vol rate/Area] > 60 mL/Min [facility] HCG ( test) IA.rapi d Ql (U)Ordered By: Kaci Morales on 10-17-2022 HCG ( test) Ql (U) Negative [facility] HCG,Urineon 10-17-2022 Beta HCG ( test) Ql (U) Negative Normal [facility] Comment on above: Order Comment: Name Collection Type:: Clean-Voided Midstream Result Comment: PERF ORMED BY: [place] [address] PATHOLOGIST [employer] PLATER ZEB BASURTO M.D. Performed By: #### A DDONUAPLUS, CG, CUU #### [address] Hematocrit Auto (Bld) [Volum e fraction]Ordered By: Kaci Morales on 10-17-2022 Hematocrit (Bld) [Volume fraction] 37.2 % 34.0-46.[address] [facility] Hemoglobin [Mass/volume] in BloodOrdered By: Kaci Morales on 10-17-2022 Hemoglobin (Bld) [Mass/Vol] 12.4 g/dL 11.8-15.[address] [facility] Ketones Auto test strip (U) [Mass/Vol]Ordered By: Kaci Morales on 10-17-2022 Ketones (U) [Mass/Vol] 1+ Negative [facility] Laboratory - Drug toxicology Ordered By: Kaci Morales on 10-17-2022 Opiates Ql (U) Negative Negative [facility] Leukocytes [#/volume] correc marv for nucleated erythrocytes in Blood by Automated counOrdered By: Kaci Morales on 10-17-2022 WBC corrected for nucl RBC Auto (Bld) [#/Vol] 7.3 10*3/uL 3.8-11.[address] [facility] Lymphocytes Auto (Bld) [#/Vo l]Ordered By: Kaci Morales on 10-17-2022 Lymphocytes (Bld) [#/Vol] 1.1 10*3/uL 1.00-4.[address] [facility] Lymphocytes/100 WBC Auto (Bl d)Ordered By: Kaci Morales on 10-17-2022 Lymphocytes/100 WBC (Bld) 14.5 % . [facility] MCH Auto (RBC) [Entitic mass ]Ordered By: Kaci Morales on 10-17-2022 MCH (RBC) [Entitic mass] 29.4 pg 24.7-34.[address] [facility] MCHC Auto (RBC) [Mass/Vol]Or dered By: Kaci Morales on 10-17-2022 MCHC (RBC) [Mass/Vol] 33.2 g/dL 32.0-35.0 [facility] MCV Auto (RBC) [Entitic vol] Ordered By: Kaci Morales on 10-17-2022 MCV (RBC) [Entitic vol] 88.6 fL 80-100 F [facility] Monocyte distribution width [Entitic volume] in Blood by AutomatedOrdered By: Kaci Morales on 10-17-2022 Monocyte distribution width Auto (Bld) [Entitic vol] 14.49 % 0.00-20.[address] [facility] Monocytes Auto (Bld) [#/Vol] Ordered By: Kaci Morales on 10-17-2022 Monocytes (Bld) [#/Vol] 0.4 10*3/uL 0.0-0.[address] [facility] Monocytes/100 WBC Auto (Bld) Ordered By: Kaci Morales on 10-17-2022 Monocytes/100 WBC (Bld) 5.2 % . [facility] Neutrophils Auto (Bld) [#/Vo l]Ordered By: Kaci Morales on 10-17-2022 Neutrophils (Bld) [#/Vol] 5.8 10*3/uL 1.8-7.[address] [facility] Neutrophils/100 WBC Auto (Bl d)Ordered By: Kaci Morales on 10-17-2022 Neutrophils/100 WBC (Bld) 79.5 % . [facility] Nitrite Test strip Ql (U)Ord ered By: Kaci Morales on 10-17-2022 Nitrite Ql (U) Negative Negative [facility] No Panel InformationOrdered By: Kaci Morales on 10-17-2022 Estimated GFR () > 60 mL/Min [facility] Comment on above: GFR estimated refere nce range: According to KDOQI guidelines, <60 ml/min/1.73m2 is sufficient to diagnose a patient with chronic kidney disease. Pharmacy Creatinine Clearance (Chem 87.[address] [facility] Nucleated erythrocytes [Pres ence] in Blood by Automated countOrdered By: Kaci Morales on 10-17-2022 Nucleated RBC Auto Ql (Bld) 0.1 /100{WBC} 0-0.[address] [facility] Phencyclidine Screen Ql (U)O rdered By: Kaci Morales on 10-17-2022 Phencyclidine Ql (U) Negative Negative [facility] Platelet mean volume Auto (B ld) [Entitic vol]Ordered By: Kaci Morales on 10-17-2022 Platelet mean volume (Bld) [Entitic vol] 7.9 fL 6.3-10.[address] [facility] Platelets Auto (Bld) [#/Vol] Ordered By: Kaci Morales on 10-17-2022 Platelets (Bld) [#/Vol] 229 10*3/uL 150-[address] [facility] Protein Auto test strip (U) [Mass/Vol]Ordered By: Kaci Morales on 10-17-2022 Protein (U) [Mass/Vol] 100 mg/dL Negative Fi [facility] RBC Auto (Bld) [#/Vol]Ordere d By: Kaci Morales on 10-17-2022 RBC (Bld) [#/Vol] 4.19 10*6/uL 3.60-5.00 [facility] Serum or plasma anion gap de terminationOrdered By: Kaci Morales on 10-17-2022 Anion gap [Moles/Vol] 13.2 mmol/L 6.0-15.0 [facility] Serum or plasma calcium jesus urement (mass/volume)Ordered By: Kaci Morales on 10-17-2022 Calcium [Mass/Vol] 9.5 mg/dL 8.2-10.2 [facility] Serum or plasma chloride iam surement (moles/volume)Ordered By: Kaci Morales on 10-17-2022 Chloride [Moles/Vol] 103 mmol/L 95-114 [facility] Serum or plasma glucose jesus urement (mass/volume)Ordered By: Kaci Morales on 02-06-2023 Glucose [Mass/Vol] 118 mg/dL 70-100 [facility] Comment on above: ADA recommended refe rence rangeRandom Glucose Reference Range is dependent on time and content of last meal. Glucose of more than 200 mg/dL in a nonstressed, ambulatory subject supports the diagnosis of Diabetes Mellitus. Serum or plasma potassium me asurement (moles/volume)Ordered By: Kaci [facility] on 10-17-2022 Potassium [Moles/Vol] 3.7 mmol/L 3.5-5.1 [facility] Serum or plasma sodium measu rement (moles/volume)Ordered By: [facility] on 10-17-2022 Sodium [Moles/Vol] 138 mmol/L 136-146 [facility] Serum or plasma total carbon dioxide measurement (moles/volume)Ordered By: [facility] on 10-17-2022 CO2 [Moles/Vol] 25.5 mmol/L 22.0-30.0 [facility] Serum or plasma urea nitroge n measurement (mass/volume)Ordered By: Kaci [facility] on 10-17-2022 Urea nitrogen [Mass/Vol] 10 mg/dL 9-[address] [facility] Specific gravity Auto test s trip (U) [Rel density]Ordered By: [facility] on 10-17-2022 Specific gravity (U) [Rel density] 1.035 1.001-1.[address] [facility] Squamous epithelial cells de tection in urine sediment by light microscopyOrdered By: [facility] on 10-17-2022 Epithelial cells.squamous LM Ql (Urine sed) 5-9 [HPF] 0-[address] [facility] Troponin I High Sensitivityo n 10-17-2022 Troponin I High Sensitivity < 3 Normal 0-[address] [facility] Comment on above: Result Comment: PERF ORMED BY: [place] [address] PATHOLOGIST [employer]PER PLATER ZEB BASURTO M.D. Performed By: #### H S TROP, BMP, CBC #### [address] Troponin I.cardiac [Mass/vol ume] in Serum or Plasma by High sensitivity methodOrdered By: Kaci Morales on 10-17-2022 Troponin I.cardiac High sensitivity method [Mass/Vol] < 3 pg/mL 0-[address] [facility] Urine Cultureon 10-17-2022 Bacteria identified Cx Nom (U) 75,000 colonies/ml mixed bacterial skin contaminants 2 Days PERFORMED BY: [place] [address] PATHOLOGIST [employer]PER PLATER ZEB BASURTO M.D. Normal [facility] Comment on above: Performed By: #### A DDONUAPLUS, UHCG, CUU #### [address] Urine bacteria detection by automated methodOrdered By: Kaci Morales on 10-17-2022 Bacteria Auto Ql (U) 1+ None Seen [facility] Urine clarity by refractomet ry automatedOrdered By: Kaci Morales on 10-17-2022 Clarity Refractometry automated (U) Cloudy Clear [facility] Urine cocaine detectionOrder ed By: Kaci Morales on 10-17-2022 Cocaine Ql (U) Negative Negative [facility] Urine glucose measurement by automated test strip (mass/volume)Ordered By: Kaci Morales on 10-17-2022 Glucose Auto test strip (U) [Mass/Vol] Normal mg/dL Normal [facility] Urine hemoglobin detection b y automated test stripOrdered By: Kaci Morales on 10-17-2022 Hemoglobin Auto test strip Ql (U) 3+ Negative [facility] Urine leukocyte esterase det ection by automated test stripOrdered By: Kaci Morales on 10-17-2022 Leukocyte esterase Auto test strip Ql (U) 2+ Negative [facility] Urine sediment crystal ident ification by light microscopyOrdered By: aKci Morales on 10-17-2022 Crystals LM Nom (Urine sed) None seen [HPF] [facility] Urobilinogen Auto test strip (U) [Mass/Vol]Ordered By: Kaci Morales on 10-17-2022 Urobilinogen (U) [Mass/Vol] Normal mg/dL Normal [facility] WBC Auto (Bld) [#/Vol]Ordere d By: Kaci Morales on 10-17-2022 WBC (Bld) [#/Vol] 7.3 10*3/uL 3.8-11.6 [facility] XR chest 1V portableon 10-17 XR chest 1V portable [facility] Main [place] [address] [place] [address] XRay Report Signed Patient: Senthil Scott MR#: [id number] 949 : 2000 Acct:[id number] Age/Sex: 21 / F ADM Date: 10/17/22 [...] Maricruz Vick M.D.10/17/2022 4:47 PM Dictation Location: [place] [address] Transcribed By: [facility] 10/17/22 1647 Dictated By: Maricruz Vick MD 10/17/22 1645 Signed By: 10/17/[address] [facility] pH Auto test strip (U)Ordere d By: Kaci Morales on 10-17-2022 pH (U) 5.0 [pH] 5.0-9.[address] [facility] Provider Letter FTon 05-31 Provider Letter [facility] May 31, 2022 SENTHIL SCOTT [address] [place] [phone] SENTHIL SCOTT 2000 To Whom It May Concern, Please excuse above patient from work 05/28/2022. Dr. Sal Downs MD General Surgery [facility] Provider Letteron 05-17-2022 Provider Letter May 17, 2022 TYLERNAVEENSA Navneet [address] [place] [phone] TYLERSENTHIL 2000 Dear Senthil, We have been trying to reach you with no success. It is important that you return our call regarding your referral from Dr. Ham upon receiving this letter. Also, at the time of your call, please provide us with your current information. Thank you for your prompt attention to this matter. Sincerely, General Surgery [phone] [facility] Physician Referralon 022 Physician Referral [phone] [id number] [facility] 2018 Novel Coronavirus (CoVI D-19), EMELYN LCon 02-10-2022 SARS-CoV-2 (COVID-19) RNA EMELYN+probe Ql (Unsp spec) Not detected Invalid Interpretation Code Not Detected [facility] Comment on above: Order Comment: [id number] 1 # [phone] Result Comment: This nucleic acid amplification test was developed and its performance characteristics determined by [employer]. Nucleic acid amplification tests include RT- PCR [...] detected) result in this assay. Performed At: [facility] [address], [place] [id number] Sanjuanita Hernández PhD Ph:[phone] Performed By: #### 6 [id number] #### [facility] ([facility]) [address] [id number] Coding Summaryon 02-10-2022 Coding Summary HTMLBase 64 OmvupeugFEu7bHh+PGh lYWQ+BR9VTBEkM64jqR ManO7XI8dWGY9JGLDOZ LOQYW6ULA5vqEK5OGmb Q2InxfGe ZfvqjZOjVY47DSk2GJJ 8nFcrHTdhgP3xzZRxR6 f5IlDrYW09vT96YYhzP LQfEnU5PiTtnyhhpVJt O5dkLaBalLTaVcd+PHR hYmxlIHdpZHRoPScxMD LpLfAofHieIZ7aYb6vT GVyLWNvbGxhcHNlOiBj o0eiAGWkXKonRZ3xqJj aI5OhbVB1YCNct1w3Rl 48dHI+BWMmZBC0vBnrF Fmcy363MqDhl0inNXD1 iREqILpqWKV4W41xp8S 1WWDbMAKgUOR2dUL9hX 9taLjwrzerG5KwvGZqM sC0ADW2bKMqsI8tqTpf tfxkaP4vVlb+Q38RSV2 DJUCEHW5BIma2O4LaZs wvdHI+LJ87UKDxSA67b EOdzWDzj3kdxNq6NxXg NWTzHSD2zJcxPJsyr5T sOVFpP89lqIQzs3X7OV UiaOvduYZjRzOohNK8o A5xHNypplzrc3qjwzcc Otsiq7kqba80fE50I52 xKFpyDXKvVLV6VQKrFX AhpUnzfs7teK8aGx1+I Cixn4gpj2zsvTo3FtWl MAGkfeBhcHtfRQM6n1X yWl81E9HqiLdcr0NbUw a4rf22aZTvn2G3aFR4T ObrMHPysX4uDUjcGdI7 QTAsWvIniQ94dNDwYEu yKr4odHrjeTdbCZ0vPA ZqsmzrQGBvqL1pOANfh BNneUpbFW4zWBXjztod b587YeIgWZJ9VEEpbBM tW8VxzP3sTiGlEQYxHN YhD4SqyAFaXKjhW720B VgiWvJ0QXFhxgMuX3Zx AWWjiOjnHbJ0s3I7Rz0 Cv1DdqzkkBUJ9ZFwpUW Z1ZbOzDkXiAjO0Z0NaI be5VRPzxXtmQB5yF7Vn WEYetxqbhfirjVU1HHK vZPHqmG53kXRsAIvuMc 1al2I1t048GQTeEJOss Z87Hs3moZawOZRntHOG lY5qxerkn5ifosqrLjL bCIYeMRy4TNl5RRTzaK srQiLaRZW5EjU2HXB9m CNpfD7qgMnicslblV2o Oyc+V01evW5dWZD2VZK 7ldseRQVztdQzEG29YJ 16X4YgXtpcuKZdyYH+P DMjzfYcdVzwCU8mZdMa c2omy7OaCOggF4PeOWM tRYwiHft4AELeIRV6nM V1uH9iKKGcWZxlk4N1u KH1P6VjgmIatt2vo0ii RLJzJZykY16kzWQlc7P 9MOGzdLE5GPHalWoiQx YpoD30Zhf+PGNvbGdyb 0GzUjcrt2ius5xgcZq0 IjMwJSIgdmFsaWduPSJ 2o4ByRi93L89jQSdeVR RoPSIxNSUiIHZhbGlnb l0xbM9uHs0+PGNvbCB3 uBY7mE1eXDClPnV2FRl aN906RyCfqQGiIiytu7 ayl4qqjQv8JvUzBRVia cTtcEguTBY0h6JvHt17 A04cSEfkHKDzYACsDGS aZMZpkPteug0ypQ4aEe 8+XK2ka7rdje35mJ17f HI+UGSiNCZ9fEbyIFfd BIAqlQ1vBZdiQuP5OHV yBkWntD42dYOmREygOj 5cvYtmcLwlBC3tASZcl ymdg035UsIwx0myHYUt rJInJEmwVGV8I91pl0N 0WEWxJNGhNBT0uVE4bU 1hbGlnbjogbGVmdDsgd oFuhNuoBHmdIMppO993 IHRvcDsnPlBhdGllbnQ nAjLhJGe6N0NoXcc7VR DdaDpqKG9eyHXeHOuiP z4vzBfeuVfiQY8tBYOq gmckl234KeOso3aqWUQ ssEMkDNxsZTA1S93mc9 H1LYLsKLKjSKM3nHC2t Z2ugTtudfngtQZhgXzm tjBqyAoaCCqrFUxuO51 6IHRvcDsnPkJpcnRoIE XzvJC3TI17NS60nEFyp 3X1vZZ1P1DdMMXkdejt blbakEL7YEQsBNGvvP5 6Oi3kkEveNb3lCISiJV J1ZIXuaTNeO9SewZ5wQ gDiTDJfKODgE8PnpMBr MRpyM618EFwyLcS1RVC eunUuJ7HzAIRulDvyGn I0s8B1Fh5GD1V5CI40F E10yEBmt5W8iJM9O8Oa JBQonewyportmJX3OUT sVPRmjG85Kj4zbSrnIe 9yAGRwHXK6LKJplZCiM 1KgdL9dOaFmDEUoFDQm B1FobAFeNGhqV444SWg fLdW3OEDnwmKzZ4UtUS LgsWwwLbU8s5L0Rk1GD Nc3OJ92CZ83uVIxs1H0 bMX2F6OqLFJkfkqlzwg iaZA3QYXfYOVonL25Bm 2qzVdcRc1sVJLgJEL5J IGamYMqM4WakV8dBvXt FTXoTITyK6QmjXKcZRu aG871PBbmAlE7IYWcqv OlG7WlCNHzrKdfGtR7a 9Y8Xi3CZWHvSA52IGJ0 pXF7BQ52OP66N9DeInw vdGFibGU+PHRhYmxlIH dpZHRoPScxMDAlJyBzd GcmCB6wEp0fYKXdUSAd yRtluIQpMzNpf8shVZI sDQfaNT7ioXadU3JrkI X7SFHqc6q9Wf20S71tE 3JvdXA+VEEmcLB5kUD1 gU1lNoXvQcH3CIohW50 4OlOyePEsCstyr8oeq0 lmdQa7PrO5DLCqkrSmn MyhKIT0b2GcTm97F52t IHdpZHRoPSIxNSUiIHZ tsVovwv2vnU2dTw5+PG WyzUQ2tCF0pE9uNxOhV rP9NJhkU672ZfEybRTs Jmqop4ocx1lcfIi8DsQ jIUYpikQbeNgaASM0j2 KmVx00X6XdnUutv2CzG ti9yj36lGWcf7N4oMS2 F1EyVBBwdcqxcPLcwDv iFK4dMOKrmumqZMPmgO 9aRBHdW1d6ZgTfPqZ2B PrmX0WisfK9QXKleWJs KUxgAIL8C29za3K1SCV iXGXxDUW1hNH4oG0bqO lnbjogbGVmdDsgdmVyd ShfQUhaCBvuZ997BNOd fThsXYRyjF5oZXGbgPB akVqsLS0bJSIjdgtcQn qQUPcNZngrIYnAG6MCC FNVRTwvdGQ+PHRkIHN0 iPdiSIrzMWOijM0aOUV zA4g8WmHlAjO2DLjvT2 PaNUFyjwtuHx27zL1cR vKqUbR2OCdpY9PrwvP5 WOGebWNlWRuaQHN0O58 vx6O7NGDmJFOtPXM3pH P5gV1swBozttlrgPMmf DsgdmVydGljYWwtYWxp C490EVNwaPvgCiNxPmF 5UtYoIFV4Y1KtBhs8HG NgmIxbRZ6fkLCyVWyxO v8efNsuaTziYC6uDFIj iiepFPAooV4lNRVpuXT nrKobMU4mAESgmqcjk0 89JrZsKLA9NNGzaDPtP 2SgcI9yNeLnOWQoBWAc K7LowGMiYKklU708CVr nJtQ4ROHfyeAiL0ZiER MveVcdUlY9p7P7Rh7sI SBZZWFyczwvdGQ+PHRk LEQ0jVogGZraKZXmeL9 uRFTxC7s6QhCnWjC1NR tmJ3SgIQDsofwlMr19w B2qBqJnCuB5PVhpE9Ao miM3GXVcqHVzHTedSOD 2Y62qs9G1DZMxNPZfAC J8pZY6gA7xvIidhipek GVmdDsgdmVydGljYWwt AIsbK057SIOanMrdWqN FTUFMRTwvdGQ+PHRkIH X8eWgwOEowSVEygW7nY DNuM2r6QaUmEhX4FUle G0CyLWOpgmnrRk19fK4 rIpFeVdZ0FJgbE4Xhur T0XEBtuIXgWOxnMVE8Q 52yw1Y1MSFzIPQmAEO0 sUC7lO9wlPvlriymwEJ mdDsgdmVydGljYWwtYW trQ048JWQhrMzlNi2DB P69VD13K4NgBolshYQc bGU+PHRhYmxlIHdpZHR oPScxMDAlJyBzdHlsZT 0dCg0rFDSxNCGifMnsc WWxCrGof1kmGPJnICme CI8xiDqtA0SawEH0DBY dp3t1It89L99mS9VkxF A+ZQObvWH0eGF1fY2gH bMpArI7JYrvP603JxSx jPQvVcloi9cyi2monTo 9IjMwJSIgdmFsaWduPS P5d7AzFu65S88vUEipB HRoPSIyMCUiIHZhbGln qj1mvO5aWh8+PGNvbCB 1mXR4bY6dOqJcCxA0DZ ahZ365GvFdcMTvUyfyS 75gS7UftYX+PHRyPjx0 EPEloAxrTA1vjLNmSDc oKa1oMXI6PvJfLjMuEU rdV1BwPXSdfvgzdfprj ES3GPPkXGNmbU60Oy0e xEjcXp8gLTShJUN0SDF feVOaO6SadY3yMlZbSK ByIVBrU7VvqEZrBLdrP 526KFfsLxO4AOYheiKd G3NeMGNwpGdhHoZ7l3C 7Ar5SpQmjbLJyJV1rTe TeBGc5Z2WpXao8DRHsh CiiEK8fhTLkGPbsIn7l vWhavHbzPQ8hCNErqee ye447NwVit7inCFXlmA RyVKpcFOF8L51ms1O8F OMcWCJoMAP8sUZ6gO5g bGlnbjogbGVmdDsgdmV upEizGFiaIWekV777XU GmwUorNhKCZkf6S5WoE pw5KMYxoJfdMR1izUTl UIfnBf1dqPpmbDbcAD9 fSVNesixac942ViCil3 bzMZXalLZeLMvdCMZ5M 99on3N2EMCrSBBlELD5 oZB1iC3tsUevpxinsXP mdDsgdmVydGljYWwtYW nlF757UAZjsIylNf9IH ta4J9ZqOzf5BYXpfXzv CZ1ppHMoDBdwQg5shYw fxCcmHN8fXJBupyynn9 14JbEte5wvMXKdxHOkP GfbKUS3C31nx6X1RZAm OUMvTSP6aQD5hO2cuEe nbjogbGVmdDsgdmVydG vvEOoqAOktK056VFNkk DsnPlBheWVyOjwvdGQ+ ZX28ig33B1CnTivzBtg 8CWCjXKH8cLX0wH5bLS EmIEblr2Q0kSD4S4Gwt tGyyc6bc1idVJMfBYli Y29 (more content not included)... Normal [facility] ED Clinical Summaryon 2021 ED Clinical Summary [facility] ? Urgent Care [address] [place], [place] [id number] Clinical Summary PERSON INFORMATION Name: SENTHIL SCOTT Age: 21 Years Sex: FEMALE : 2000 MRN: Acct#: Visit Reason: UC - Headache; HEADACHE, NAUSEA Arrival: 02/07/2022 17:42:14 Discharge: 02/07/2022 19:03:00 LOS: 000 01:21 Check In: 02/07/2022 17:42:14 Checkout: 02/07/2022 19:03:00 Address: [address] [place] [address] PCP: Liberty Pierre MD PROVIDER INFORMATION Provider [...] Follow-Up: With: Address: When: Liberty Pierre [address] [facility], [address] [place] [id number] Business (1) Within 2 to 4 days [...] per current recommendations and guidelines from the [facility]. -Push fluids to stay hydrated. [...] else to drop your groceries off and sampler pickup your medications. I would recommend that person [...] URI with cough Patient Understands: Yes - Patient/family/rn urgent care verbalizes understanding of instructions given Comment: Normal [facility] ED Patient Summaryon 022 ED Patient Summary [facility] ? Urgent Care [address] [place] [address] PATIENT DISCHARGE INSTRUCTIONS Patient Information Name: SENTHIL SCOTT Age: 21 Years Date of : 2000 Reason For Visit: UC - Headache; HEADACHE, NAUSEA Arrival Time: 02/07/2022 17:42:14 Primary Care Physician: Liberty Pierre MD Attending Physician: Cedric Hemphill Comment: Patient Education With: Address: When: Liberty Pierre [address] [place] [address], [place] [address] Business (1) Within 2 to 4 days [...] per current recommendations and guidelines from the [facility]. -Push fluids to stay hydrated. [...] else to drop your groceries off and sampler pickup your medications. I would recommend that person [...] yourself. Get rest and stay hydrated. Take bwmm-ycm-tplecoe medicines, such as acetaminophen, to help you feel better. ? Stay in touch with your doctor. Call before you get medical care. Be sure to get care if (more content not included)... [facility] Influenza A&B Rapidon 2021 Influenza A Negative [facility] Comment on above: Performed By: #### 1 [id number] #### [facility] (DEFAULT) [address] [place] [address] Influenza B Negative [facility] Comment on above: Performed By: #### 1 [id number] #### [facility] (DEFAULT) [address] [place] [address] Internal QC OK? Pass [facility] Comment on above: Performed By: #### 1 [id number] #### [facility] (DEFAULT) [address] [place] [address] Progress Note - Nurseon 01-11 Progress Note - Nurse Patient provided with fluids [Electronically Signed on: 02/07/2022 18:30 EDT] __ Salena Ochoa RN [Verified on: 02/07/2022 18:30 EDT] __ Salena Ochoa RN [facility] UA w Culture if Ind Standard on 02-07-2022 Breakpoint UA [facility] Comment on above: Performed By: #### 1 [id number] #### [facility] (DEFAULT) [address] [place] [address] Color (U) Yellow [facility] Comment on above: Performed By: #### 1 [id number] #### [facility] (DEFAULT) [address] [place] [address] Culture? Not Indicated Invalid Interpretation Code [facility] Comment on above: Result Comment: Resu lt created by rule GL_MAGR_ADD_UA_CULT1 Performed By: #### 1 [id number] #### [facility] (DEFAULT) [address] [place] [address] Glucose (U) [Mass/Vol] Negative Normal [facility] Comment on above: Performed By: #### 1 [id number] #### [facility] (DEFAULT) [address] [place] [address] Ketones Ql (U) 40 Normal [facility] Comment on above: Performed By: #### 1 [id number] #### [facility] (DEFAULT) [address] [place] [address] Micro? Not Indicated Invalid Interpretation Code [facility] Comment on above: Result Comment: Resu lt created by rule GL_MAGR_ADD_UA_MICRO Performed By: #### 1 [id number] #### [facility] (DEFAULT) [address] [place] [address] UA Bilirubin SMALL Abnormal [facility] Comment on above: Performed By: #### 1 [id number] #### [facility] (DEFAULT) [address] [place] [address] UA Blood Negative Normal NEGATIVE [facility] Comment on above: Performed By: #### 1 [id number] #### [facility] (DEFAULT) [address] [place] [address] UA Clarity CLEAR Normal CLEAR [facility] Comment on above: Performed By: #### 1 [id number] #### [facility] (DEFAULT) [address] [place] [address] UA Leuk Est Negative Normal NEGATIVE [facility] Comment on above: Performed By: #### 1 [id number] #### [facility] (DEFAULT) [address] [place] [address] UA Nitrite Negative Normal NEGATIVE [facility] Comment on above: Performed By: #### 1 [id number] #### [facility] (DEFAULT) [address] [place] [address] UA pH 6.5 Normal 5-8 [facility] Comment on above: Performed By: #### 1 [id number] #### [facility] (DEFAULT) [address] [place] [address] UA Protein Negative Normal NEGATIVE [facility] Comment on above: Performed By: #### 1 [id number] #### [facility] (DEFAULT) [address] [place] [address] UA Spec Grav >=1.030 Normal 1.001-1.035 [facility] Comment on above: Performed By: #### 1 [id number] #### [facility] (DEFAULT) [address] [place] [address] UA Urobilinogen 1.0 mg/dL Normal 0.2-1.0 [facility] Comment on above: Performed By: #### 1 [id number] #### [facility] (DEFAULT) [address] [place] [address] Urine Source Clean Catch Normal [facility] Comment on above: Performed By: #### 1 [id number] #### [facility] (DEFAULT) [address] [place] [address] Urgent Care Note- Provideron 02-07-2022 Urgent Care [...] glass of water today. Ate McDouble and Romanian fries at 5:30pm. + influenza exposure 4 days ago. ALL: None Meds: Midodrine 5mg TID. PMH: Neurocardiogenic syncope, leaky valve of heart Social: Called off work today from [employer]. Worked 02/04, 02/05, 02/06. Marijuana daily. 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 May return [...] 18:01 E (more content not included)... Normal [facility] Urgent Care [place] 022 Urgent Care Record [facility] ? Urgent Care [address] [place] [address] PATIENT DISCHARGE INSTRUCTIONS Patient Information Name: SENTHIL SCOTT Age: 21 Years Date of : 2000 Reason For Visit: UC - Headache; HEADACHE, NAUSEA Arrival Time: 02/07/2022 17:42:14 Primary Care Physician: Liberty Pierre MD Attending Physician: Cedric Hemphill Comment: Visit Diagnosis: Diagnoses This Visit Aching headache (R51.9) Mild dehydration (E86.0) Tachycardia (R00.0) UC - Headache ([id number]) Viral URI with cough (J06.9) If you [...] legal documents With: Address: When: Liberty Pierre [address] [place], [place] [id number] Business (1) Within 2 to 4 days [...] per current recommendations and guidelines from the [facility]. -Push fluids to stay hydrated. -Use [...] else to drop your groceries off and sampler pickup your medications. I would recommend that person [...] and treatment you received today in the [facility] were for an urgent problem and are not intended as complete care. It is important for you to follow up with a doctor, nurse practitioner, or physician?s bilingual teacher assistant for ongoing care. If your symptoms become worse or you do not improve as expected and you are unable to reach your usual health ca (more content not included)... Normal [facility] CHLAMYDIA/GONOCOCCUS EMELYN (SW AB/URINE/PAPon 12-11-2021 Chlamydia trachomatis, EMELYN Negative Normal Negative [facility] Comment on above: Performed By: #### C T/NGNA #### [facility] [address] [place] [address] [address] Soraya Tavarez Neisseria gonorrhoeae, EMELYN Negative Normal Negative [facility] Comment on above: Performed By: #### C T/NGNA #### [facility] [address] [place] [address] Dr. Soraya Tavarez VAGINITIS/VAGINOSIS DNA PROB Jon 12-10-2021 Elvia species Negative Normal Negative [facility] Comment on above: Performed By: #### V AGINT #### [facility] [address] [address] [address] Soraya Tavarez Gardnerella vaginalis Negative Normal Negative [facility] Comment on above: Performed By: #### V AGINT #### [facility] [address] [place] [address] Dr. Soraya Tavarez Trichomonas vaginalis Negative Normal Negative [facility] Comment on above: Performed By: #### V AGINT #### [facility] [address] [place] [address] Dr. Soraya Tavarez US PELVIS TRANSVAGon 022 [...] by: CLARY LOYD Date: 2021-12-08 14:[address] [facility] 10-22-2020 CORTISOL 11.0 mcg/dL Normal [facility] Comment on above: Result Comment: Refe rence Range: AM 6.0-23.0 mcg/dL PM 0.0-9.0 mcg/dL Performed By: #### 3 0209 #### [facility] [address] [place] [id number] Thyroglobulin Ab Qn [IU]/mL Normal 0.0-4.0 [facility] Comment on above: Result Comment: INTE RPRETIVE INFORMATION: Thyroglobulin Antibody A value of 4.0 IU/mL or less indicates a negative result for thyroglobulin antibodies. The Thyroglobulin Antibody assay is being performed using the [employer] Access DxI method. Performed By: [employer] [address] [place] [address] Carriage Dogger: Kassy Pickens MD TPO ANTIBODY [id number] TPO ANTIBODY 0.3 IU/mL Normal 0.0-9.0 [facility] Comment on above: Result Comment: Perf ormed By: [employer] [facility] [address] [place] [address] Carriage Dogger: Kassy Pickens MD TSH RECEPTOR AB [id number] TSH RECEPTOR AB <0.90 Normal <=1.75 [facility] Comment on above: Result Comment: Perf ormed By: [employer] [address] [place] [id number] Carriage Dogger: Kassy Pickens MD Vital Signs Date Time Vital Sign Value Performing Clinician Facility 2023 09:32-0500 Body mass index (BMI) [Ratio] 24.2 kg/m2 Wesly Linette DO Work Phone: [facility] [employer] 2023 09:32-0500 Body weight 63.96 kg Wesly Linette DO Work Phone: [facility] [employer] 2023 09:32-0500 Diastolic blood pressure 70 mm[Hg] Wesly Linette DO Work Phone: [facility] [employer] 2023 09:32-0500 Systolic blood pressure 110 mm[Hg] Wesly Linette DO Work Phone: [facility] [employer] 10-04-2023 09:45-0500 Body height 162.56 cm [facility] Other [employer] [facility] Other 10-04-2023 09:45-0500 Body mass index (BMI) [Ratio] 23.51 kg/m2 [facility] Other [employer] [facility] Other 10-04-2023 09:45-0500 Body temperature 97.8 [degF] Liberty Pierre Other [employer] [facility] Other 10-04-2023 09:45-0500 Body weight 62.14 kg [facility] Other [employer] Body Other 10-04-2023 09:45-0500 Diastolic blood pressure 80 mm[Hg] Liberty Pierre Other [employer] Other 10-04-2023 09:45-0500 SaO2% (BldA) [Mass fraction] 98 % Liberty Pierre Other [employer] Other 10-04-2023 09:45-0500 Systolic blood pressure 108 mm[Hg] Liberty Pierre Other [employer] Other 09-18-2023 13:08-0500 Body height 162.6 cm Arlette Mustafa MD Work Phone: [facility] 09-18-2023 13:08-0500 Body mass index (BMI) [Ratio] 23.79 kg/m2 Arlette Mustafa MD Work Phone: [facility] 09-18-2023 13:08-0500 Body weight 62.87 kg Arlette Mustafa MD Work Phone: [facility] 09-18-2023 13:08-0500 Diastolic blood pressure 64 mm[Hg] Arlette Mustafa MD Work Phone: [facility] 09-18-2023 13:08-0500 Heart rate 89 /min Arlette Mustafa MD Work Phone: [facility] 09-18-2023 13:08-0500 Systolic blood pressure 109 mm[Hg] Arlette Mustafa MD Work Phone: [facility] 07-22-2023 10:10-0500 Body height 162.56 cm Tiesha Pittsmond Other [employer] [employer] Other 07-22-2023 10:10-0500 Body mass index (BMI) [Ratio] 20.94 kg/m2 Tiesha Juliana Other [employer] [employer] Other 07-22-2023 10:10-0500 Body temperature 98.1 [degF] Tiesha Juliana Other [employer] Other 07-22-2023 10:10-0500 Body weight 55.34 kg Tiesha Pittsmond Other [employer] Other 07-22-2023 10:10-0500 Respiratory rate 18 /min Tiesha Juliana Other [employer] [employer] Other 07-22-2023 10:10-0500 SaO2% (BldA) [Mass fraction] 98 % Tiesha Andrews Other [employer] Other 05-09-2023 14:30-0400 Body height 162.56 cm Liberty Pierre Other [employer] Other 05-09-2023 14:30-0400 Body mass index (BMI) [Ratio] 17.64 kg/m2 Liberty Pierre Other [facility] [employer] Other 05-09-2023 14:30-0400 Body weight 46.63 kg Liberty Pierre Other [employer] [employer] Other 05-09-2023 14:30-0400 Diastolic blood pressure 64 mm[Hg] Liberty Pierre Other [employer] Other 05-09-2023 14:30-0400 Systolic blood pressure 104 mm[Hg] Liberty Pierre Other [employer] [employer] Other 10-21-2022 12:30-0500 Body height 162.56 cm Liberty Pierre Other [employer] [employer] Other 10-21-2022 12:30-0500 Body mass index (BMI) [Ratio] 18.71 kg/m2 Liberty Pierre Other [employer] [employer] Other 10-21-2022 12:30-0500 Body weight 49.44 kg Liberty Pierre Other [employer] [employer] Other 10-21-2022 12:30-0500 Diastolic blood pressure 60 mm[Hg] Liberty Pierre Other [employer] Other 10-21-2022 12:30-0500 SaO2% (BldA) [Mass fraction] 97 % Liberty Pierre Other [employer] Other 10-21-2022 12:30-0500 Systolic blood pressure 108 mm[Hg] Liberty Pierre Other [facility] [employer] Other 10-17-2022 17:39-0500 Diastolic blood pressure 53 mm[Hg] MD Liberty Pierre Work Phone: [facility] 10-17-2022 17:39-0500 Heart rate 95 /min MD Liberty Pierre Work Phone: [facility] 10-17-2022 17:39-0500 Respiratory rate 16 /min MD Liberty Pierre Work Phone: [facility] 10-17-2022 17:39-0500 SaO2% (BldA) [Mass fraction] 98 % MD Liberty Pierre Work Phone: [facility] 10-17-2022 17:39-0500 Systolic blood pressure 102 mm[Hg] MD Liberty Pierre Work Phone: [facility] 10-17-2022 15:42-0500 Body height 162.56 cm MD Liberty Pierre Work Phone: [facility] 10-17-2022 15:42-0500 Body temperature 97.8 [degF] MD Liberty Pierre Work Phone: [facility] 10-17-2022 15:42-0500 Body weight 50.1 kg MD Liberty Pierre Work Phone: [facility] 05-31-2022 14:29-0400 Blood Pressure Location Sal DOWNS [facility] 05-31-2022 14:29-0400 Diastolic blood pressure 60 mm[Hg] Sal DOW[facility] 05-31-2022 14:29-0400 Heart rate 68 /min Sal DOWNS [facility] 05-31-2022 14:29-0400 Respiratory rate 16 /min Sal DOWNS [facility] 05-31-2022 14:29-0400 Systolic blood pressure 108 mm[Hg] Sal DOWNS [facility] Encounters Encounter Date Encounter Type Care Provider [...] Start: 10-27-2023 End: 10-27[facility]: 10-27-2023 End: 10-27-2023 Emergency department patient visit CONCHA YEBOAH DARCI [facility] Start: 2023 End: 2023 flow sheet Wesly Linette DO Work Phone: [facility] Comment on above: Third trimester preg mamadou Start: 2023 End: 2023 ambulatory WESLY LNIETTE Not Available Start: 10-09-2023 End: 10-09-2023 ambulatory STEPHEN FOX Not Available Start: 10-04-2023 End: 10-04-2023 ambulatory Liberty Pierre Other [employer] [employer] Other Start: 10-04-2023 Office outpatient vi sit 15 minutes Liberty Pierre [facility] Start: 09-25-2023 End: 09-25-2023 ambulatory WESLY LINETTE Not Available Start: 09-21-2023 End: 09-21-2023 ambulatory Liberty Pierre Other [facility] Other Start: 09-21-2023 Office outpatient vi sit 15 minutes Liberty Pierre [facility] Start: 09-18-2023 End: 09-19-2023 ambulatory WESLY SUE [facility] Start: 09-18-2023 End: 09-18-2023 Office outpatient visit 25 minutes Arlette Mustafa MD Work Phone: Maternal- Medicine at [facility] Comment on above: Heartburn during pre gnancy in third trimester (Primary Dx); Cardiovascular disease of mother in , antepartum, third trimester; Postural orthostatic tachycardia syndrome; cardiac echogenic focus, antepartum, single or unspecified fetus Start: 08-28-2023 End: 08-28-2023 ambulatory STEPHEN FOX Not Available Start: 07-27-[address] [facility] Start: 07-24-2023 End: 07-24-2023 ambulatory STEPHEN FOX Not Available Start: 07-22-2023 End: 07-22-2023 ambulatory Tiesha Andrews Other [employer] Other Start: 07-22-2023 Office outpatient vi sit 15 minutes Tiesha Andrews [facility] [place] Start: 05-25-2023 End: 05-25-2023 ambulatory Liberty Pierre Other [facility] [employer] Other Start: 05-25-2023 Telephone encounter Liberty Pierre [facility] Start: 05-09-2023 End: 05-09-2023 ambulatory Liberty Pierre Other [facility] Other Start: 05-09-2023 Office outpatient vi sit 15 minutes Liberty Pierre [facility] Start: 11-02-2022 End: 11-03-[address] LIBERTY PIERRE Facility: Start: 10-21-2022 End: 10-21-2022 ambulatory Liberty Pierre Other [employer] Other Start: 10-21-2022 Office outpatient vi sit 15 minutes Liberty Pierre [facility] Start: 10-17-2022 End: 10-17-2022 Emergency department patient visit Kaci Morales Facility:[facility] Start: 10-17-2022 End: 10-17-2022 Emergency department patient visit MD Liberty Pierre Work Phone: [facility] Work Phone: Start: 10-04-2022 End: 10-05-[address] CLARY LOYD Facility:[facility] Start: 08-16-2022 End: 08-17-[address] CLARY LOYD Facility:[facility] Start: 07-26-2022 End: 07-27-[address] CLARY LOYD Facility:[facility] Start: 07-19-2022 Well child visit Liberty Pierre Other [facility] [employer] Other Start: 07-12-2022 End: 07-13-[address] [...] dip stick/tabl et rgnt non-auto w/o micrscp Wsely Sue DO Work Phone: Start: 07-11-2023 Microscopic [...] for malignant neoplasm of cervix Pap Smear [facility] Start: 09-18-2024 Adult BMI Screening Adult BMI Screen ing [facility] Start: 09-18-2024 Tobacco Screening Tobacco Screening [facility] Start: 12-06-2023 End: 12-06-2023 Patient encounter procedure 12/06/2023 10:30 AM EDT Office Visit [facility] [address] [place] [phone] Genoveva Bailon MD [address] [place] [address], [address], [address], [address] [place] [phone] [facility] Start: 11-13-2023 End: 11-13-2023 Patient encounter procedure 11/13/2023 1:40 PM EST Routine [facility] [address] [phone] Wesly Sue DO [address] [place] [address] [facility] Start: 10-16-2023 End: 10-16-2023 Telemedicine consultation with patient 10/16/2023 2:30 PM EST Telemedicine Maternal- Medicine at [place] [id number] [place] [phone] Arlette Mustafa MD [address] [place], [place] [id number] [facility] at [facility] Start: 09-18-2023 End: 09-18-2024 Echo complete W/O contrast Echo complete W/O contrast Echocardiography Routine Cardiovascular disease of mother in , antepartum, third trimester Postural orthostatic tachycardia syndrome cardiac echogenic focus, antepartum, single or unspecified fetus Heartburn during in third trimester Expected: 09/18/2023, Expires: 09/18/2024 [facility] Comment on above: Expected: 09/18/2023 , Expires: 09/18/2024 Start: 05-12-2023 Influenza vaccination Influenza Vacc ine [facility] Start: 10-17-2022 Bacteria identified in Urine by Culture [facility] Start: 2019 DTaP,Tdap and Td Vaccines (1 - Tdap) DTaP,Tdap and Td Vaccines (1 - Tdap) [facility] Start: 2012 Depression Screening Depression Scre ening [facility] End: 09-17-2024 ECG 12 lead ECG 12 lead ECG Routine Cardiovascular disease of mother in , antepartum, third trimester Postural orthostatic tachycardia syndrome cardiac echogenic focus, antepartum, single or unspecified fetus Heartburn during in third trimester 1 Occurrences starting 09/18/2023 until 09/17/2024 [facility] Work Phone: Comment on above: 1 Occurrences starti ng 09/18/2023 until 09/17/2024 Patient Education Head Injury in Adults [facility] Work Phone: Patient referral [facility] Work Phone: Immunizations Immunization Date Immunization Notes Care Provider Luisito spencer 04-09-2019 meningococcal oligosaccharide (groups A, C, Y and W-135) diphtheria toxoid conjugate vaccine (MCV4O) Liberty Pierre Other [employer] Other Payers Date Payer Category Payer Medicaid [facility] MEDICAID [facility] MEDICAID [id number] 2023-Present [phone] [address] [place] [address] [id number] 2023 Unknown [id number]. 1.13.693.2.7.3. [id number] 2023 Medicaid [id number] 2.16.840.1.931319.19 2022 Self-pay [id number] 2000 Unknown [id number] 2.16.840.1.537863.3.579.2.727 2000 Unknown [id number] 2.16.840.1.062451.3.579.2.593 2000 Unknown [id number] 2.16.840.1.112963.3.579.2.593 2000 Unknown [id number] 2.16.840.1.870326.3.579.2.593 2000 Unknown [id number] 2.16.840.1.489143.3.579.2.593 2000 Unknown [id number] 2.16.840.1.567999.3.579.2.593 2000 Unknown [id number] 2.16.840.1.325048.3.579.2.593 2000 Unknown [id number] 2.16.840.1.316236.3.579.2.593 2000 Unknown [id number] 2.16.840.1.813791.3.579.2.1286 2000 Unknown [id number] 2.16.840.1.314632.3.579.2.1286 2000 Unknown [id number] 2.16.840.1.748778.3.579.2.1286 2000 Unknown [id number] 2.16.840.1.125883.3.579.2.1286 2000 Unknown [id number] 2.16.840.1.988429.3.579.2.1286 2000 Unknown [id number] 2.16.840.1.466680.3.579.2.1286 2000 Unknown [id number] 2.16.840.1.348137.3.579.2.1259 2000 Unknown [id number] 2.16.840.1.598552.3.579.2.1259 2000 Unknown [id number] 2.16.840.1.167190.3.579.2.9 2000 Unknown [id number] 2.16.840.1.668242.3.579.2.1259 2000 Unknown [id number] 2.16.840.1.972167.3.579.2.9 2000 Unknown [id number] 2.16.840.1.049003.3.579.2.1259 2000 Unknown [id number] 2.16.840.1.557559.3.579.2.9 2000 Unknown [id number] 2.16.840.1.169445.3.579.2.1259 2000 Unknown [id number] 2.16.840.1.659769.3.579.2.9 2000 Unknown [id number] 2.16.840.1.924664.3.579.2.9 2000 Unknown [id number] 2.16.840.1.386369.3.579.2.1259 1979 Unknown [id number] 2.16.840.1.785412.3.579.2.727 1959 Unknown [id number] Unknown [id number] 2.16.840.1.054389.3.579.2.531 Unknown [id number] Social History Date Type Detail Facility Start: 05-31-2022 End: 05-22-2023 Tobacco smoking status Never smoked tobacco (finding) [facility] Tobacco smoking status Never [facility] Start: 05-22-2023 End: 09-18-2023 Sex Assigned At Female [facility] Start: 10-17-2022 Tobacco smoking stat us NHIS Smoker (finding) [facility] Start: 2000 Sex Assigned At Female F [facility] Start: 05-22-2023 End: 06-16-2023 Tobacco use and exposure Smokeless tobacco non-user [facility] Start: 09-18-2023 End: 2023 Alcohol intake Lifetime non-drinker (finding) [facility] Start: 05-22-2023 End: 09-18-2023 History of Social function [facility] Start: 03-16-2023 [facility] Start: 2000 Sex Assigned At Not on file P [facility] Functional Status Date Assessment Result [...] nursing note reviewed. Exam conducted with a import/export clerk present. Patient presents today for a routine [...] Wesly Sue DO documented in this encounter [facility] 10-04-2023 Evaluation note Encounter Date Diagnosis Assessment Notes Sep, Acute non-recurrent maxillary sinusitis (ICD-10 - J01.00) Finish antibiotics WIll notify her OB work note given. [employer] [employer] Other 01-11-2024 Evaluation note* Encounter Date Diagnosis [...] come in for vitals, discuss w Dr. uSe next week. She will have her mom check her pulse. Noted history of NCS. [facility] Other 01-08-2024 History of Present illness Narrative* [...] was 32 minutes. 24 minutes were direct [id number] for counseling and coordination of care during visits itself. An additional 3 minutes or for same day preparation to see the patient. Another 6 minutes were needed were needed to prepare report and or to perform other duties to complete visit. Thank you for sending this patient. Arlette Mustafa MD Maternal Medicine Professor, [facility] [phone]- Office [phone]- Personal Cell Phone Office Note: Patient Active [...] had neurocardiogenic syncope. The patient saw a sports cartoonist that recommended EKG and echocardiogram. The problem list indicates a shortened MT interval. The patient is unaware of pre-excitation [...] wanted the patient to be seen by sports cartoonist. If this diagnosis is not want the [...] of affects and embryo affects. We reviewed [employer] database. Case reports in human have been [...] considered clinically significant by most. Most recent [facility] guidelines recommend cell free DNA screening as [...] care primary OB provider. documented in this encounter[facility] [id number] NoteSubjective Senthil Scott is a 22 y.o. 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 Social [...] No Known Allergies Medications Current Outpatient Medications: [id number] 29-1-400 mg combo pack,tablet and cap,DR, Take [...] and other tests EKG 07/17/23: NSR, short MT interval Assessment/Plan Diagnoses and all orders for [...] Ambulatory referral to Cardiac Electrophysiology; Future Shortened MT interval Pre-syncope - Will order an echocardiogram - she has known vasovagal syncope Previously under control with midodrine daily I discussed with Dr. Max, who is our expert on syncope and vasovagal syncope He has used midodrine in patients and believes it is safe He also felt that symptoms should gradually improve in the next few weeks 2. Short MT interval on EKG: Consider event monitor and EP evaluation if having palpit (more content not included)...[facility]11-11-2023 Evaluation note* Encounter Date Diagnosis Assessment [...] Robitussin for the cough. Follow-up with your PELLETIZER OPERATOR if no improvement in 2 to 3 days. Off work tomorrow and Monday, may return to work on Monday. Jul, Sore throat (ICD-10 - J02.9) [facility] Other 08-29-2023 Evaluation note* Encounter Date Diagnosis Assessment Notes Treatment Notes Treatment Clinical Notes Apr, Mild intermittent reactive airway disease without complication (ICD-10 - J45.20) Discussed her symptoms and agreed to HFA prn. Apr, Neurocardiogenic syncope (ICD-10 - R55) Midodrine is catagory C and she has been off of it for a few weeks. Will not refill and notify Dr. Sue. [facility] Other 02-10-2023 Evaluation note* Encounter Date Diagnosis Assessment Notes Treatment Notes Treatment Clinical Notes Oct, Neurocardiogenic syncope (ICD-10 - R55) Increased dose of med. Has been through workup with [facility]. Will refer to Neurology to r/o seizure component. Note given for work. [facility] Other 01-24-2023 NotePROCEDURE: XR TIB_FIB LT 2V HISTORY: Pain in lower limb ; persistent mid lower leg pain; follow-up stress reaction COMPARISON: XR tib-fib left 08/16/2022 FINDINGS: BONES:No fracture, dislocation, or periosteal reaction. SOFT TISSUES:No visible soft tissue swelling. EFFUSION:None visible. OTHER: Negative. IMPRESSION: 1. No suspicious bone abnormality. Electronically authenticated by: CLARY LOYD Date: 2022-10-04 15:34[facility]12-06-2022 NotePROCEDURE: XR TIB_FIB LT 2V, [...] Electronically authenticated by: CLARY LOYD Date: 2022-08-16 09:39[facility]12-06-2022 NotePROCEDURE: XR TIB_FIB LT 2V, [...] Electronically authenticated by: CLARY LOYD Date: 2022-08-16 09:39[facility]11-15-2022 NotePROCEDURE: XR ANKLE LT MIN 3 V HISTORY: Pain of left ankle joint ; follow-up ankle sprain COMPARISON: XR ankle left 07/12/2022 FINDINGS: BONES:No fracture, acute abnormality, or significant arthropathy. SOFT TISSUES:No visible soft tissue swelling. EFFUSION:None visible. OTHER: Negative. IMPRESSION: 1. No acute bone abnormality or appreciable degenerative changes. Electronically authenticated by: CLARY LOYD Date: 2022-07-26 15:21[facility]11-01-2022 NotePROCEDURE: XR ANKLE LT MIN 3 V COMPARISON: None. HISTORY: Injury of left ankle FINDINGS: BONES:No fracture, acute abnormality, or significant arthropathy. SOFT TISSUES:Negative. No visible soft tissue swelling. EFFUSION:None visible. OTHER: Negative. IMPRESSION: No acute disease. Electronically authenticated by: CHERRIE FLORES Date: 2022-07-12 13:06[facility]09-20-2022 NoteChief Complaint consultation for abdominal [...] Daily, # 30 cap(s), Refills(s) 3, Pharmacy: [id number], 163.8, cm, 05/31/22 14:35:00 EDT, Height/Length Dosing, 53.6, kg, 05/31/22 14:35:00 EDT, Weight Dosing 2. Marijuana use, continuous (F12.90: Cannabis use, unspecified, uncomplicated) see # 1 Ordered: omeprazole, 20 mg = 1 cap(s), Oral, Daily, # 30 cap(s), Refills(s) 3, Pharmacy: [id number], 163.8, cm, 05/31/22 14:35:00 EDT, Height/Length Dosing, 53.6, kg, 05/31/22 14:35:00 EDT, Weight Dosing 3. Anxiety (F41.9: Anxiety disorder, unspecified) see # 1 Ordered: omeprazole, 20 mg = 1 cap(s), Oral, Daily, # 30 cap(s), Refills(s) 3, Pharmacy: [facility], 163.8, cm, 05/31/22 14:35:00 EDT, Height/Length [...] refills Allergies Macrobid (Vomi (more content not included)...[facility]:Result Comment: Electronically Signed By: VICTORIA FRANK, Sal Cam\Date and Time Signed: 05/31/22 17:28 [id number] NotePatient Education Materials Follows:Disease COVID-19: What to [...] yourself. Get rest and stay hydrated. Take mxov-yjs-kgzqhwv medicines, such as acetaminophen, to help you [...] to your local emergency facility: Notify the rafter cutting machine operator that you are seeking care [...] household. ? You can visit your state, [place], local, and [facility] department's website to look for the [...] clean your hands with an alcohol-based hand line clearance foreman that contains at least 60% alcohol. Clean your hands often ? Wash your hands often with soap and water for at least 20 seconds. This is especially important after blowing your nose, coughing, or sneezing; going to the bathroom; and before eating (more content not included)...[facility] Evaluation + Plan note No data available for this section [facility] Evaluation noteNo assessment information available [facility] Work Phone: Evaluation noteNo InformationNortFairmount Behavioral Health System [employer] Other Evaluation note* Diagnosis Heartburn during in third trimester- Primary Cardiovascular disease of mother in , antepartum, third trimester Postural orthostatic tachycardia syndrome Unspecified tachycardia cardiac echogenic focus, antepartum, single or unspecified fetus documented in this encounter [facility]* Diagnosis Third trimester state, incidental documented [...] ARM 2016 Hospitalization History SEE SURGICAL HX [facility] [employer] Other Hospital Discharge instructions No data available for this section [facility] Discharge instructions Additional Instructions Push fluids Rest Avoid marijuana use Follow-up with your doctor call tomorrow for appointment Return if any problems persist or worsen including chest pain, shortness of breath, numbness, tingling, unilateral weakness or any other concern Take antibiotic as instructed until [facility] Work Phone: InstructionsNot on filedocumented in this encounter [facility] EntertainmentProgress note No data available for this section [facility] Summary Purpose Family History No Family History [...] complete W/O contrast Arlette Mustafa MD [address] [place] [address] Referral ID Status Reason Start Date Expiration Date V isits Requested Visits Authorized [id number] Pending Review 09/18/2023 09/17/2024 1 1 Specialty Diagnoses / Procedures Referred By William huerta Referred To Contact Diagnoses Cardiovascular disease of mother in , antepartum, third trimester Postural orthostatic tachycardia syndrome cardiac echogenic focus, antepartum, single or unspecified fetus Heartburn during in third trimester Procedures ECG 12 lead Arlette Mustafa MD [address] [place] [id number] Referral ID Status Reason Start Date Expiration Date V isits Requested Visits Authorized [id number] Pending Review 09/18/2023 09/17/2024 1 1 Reason 11/23/22 Possible seizure - labs and [facility] at [facility]. Diagnosis 1 Neurocardiogenic syn cope (R55) Referral Organization [facility] Gabo boykin Referring Provider First Name Liberty Referring Provider Last Name Ignacio Referring Provider Specialty Family [facility] Referred Organization [facility] Referred Provider Avril Irving Referred Address [address] [place], [place],[address] Referred Provider Specialty Neurology Referral Priority Routine [...] and content) DATE CREATED AUTHOR 12/23/2020 [facility] DATE CREATED AUTHOR AUTHOR'S ORGANIZ ATION 02/10/2022 [facility] DATE CREATED AUTHOR AUTHOR'S ORGANIZ ATION 06/11/[address] [facility] DATE CREATED AUTHOR AUTHOR'S ORGANIZ ATION 10/25/2022 [facility] DATE CREATED AUTHOR AUTHOR'S ORGANIZ ATION 11/06/2022 [facility] DATE CREATED AUTHOR AUTHOR'S ORGANIZ ATION 08/17/2023 [facility] DATE CREATED AUTHOR AUTHOR'S ORGANIZ ATION 09/24/2023 [facility] DATE CREATED AUTHOR AUTHOR'S ORGANIZ ATION 10/29/2023 [facility] DATE CREATED AUTHOR AUTHOR'S ORGANIZ ATION 03/06/2024 [facility] dical Specialists EPIC Care Team (unrecognized sect ion and content) Team Status: Inactive Member Role Status Dates Liberty Pierre MD Primary Care Provider Active Kaci Morales APRN Emergency Provider Active Team Status: Active Member Role Status Dates Liberty Pierre MD Primary Care Provider Active Real Estate Services Coordinator Relationship Specialty Start Date End Date Liberty Pierre MD [address] [place] [phone] PCP - General Family Medicine 05/04/23 Goals [...] BE BASED ON THE PRIMARY CLINICAL RECORDS. [employer] [facility]. provides no warranty or guarantee of the accuracy or completeness of information in this document.
[2024-08-29 11:34] VITALS: BP 99/65; PULSE 80; TEMP 36.7; O2SAT 98; BMI 17.3
[2024-08-29 12:32] LABS: Bilirubin Urine NEGATIVE (NEGATIVE); Blood Urine NEGATIVE (NEGATIVE); Clarity Urine CLEAR (CLEAR); Color Urine LT. YELLOW (YELLOW); Glucose Urine UA NEGATIVE (NEGATIVE); Ketones Urine NEGATIVE (NEGATIVE); Leukocyte Esterase Urine NEGATIVE (NEGATIVE); Nitrite Urine NEGATIVE (NEGATIVE); Protein Urine 30 mg/dL (NEG/TRACE); Specific Gravity Urine >=1.030 (1.005-1.025); Urobilinogen Urine 0.2 EU/dL (0.2-1.0)
[2024-08-29 12:43] LABS: Urine Microscopic Indicated YES
[2024-08-29 12:45] LABS: Bacteria Urine NONE SEEN #/HPF (NONE SEEN); Mucus Urine TRACE (NONE SEEN); RBC Urine NONE SEEN #/HPF (0-2); Squamous Epithelial Cell Urine FEW #/LPF (NONE/RARE); WBC Urine NONE SEEN #/HPF (NONE SEEN)
[2024-08-29 12:46] LABS: Urine Culture Indicated NO
[2024-08-29 12:47] LABS: HCG Qualitative Urine* NEGATIVE (NEGATIVE); Internal Control Within Normal Limits
--- NOTE | 2024-08-29 15:04 | ED_ITS ---
HPI - Female Genitourinary General Chief complaint: Urogenital-Female Stated complaint: BLOOD IN URINE Time Seen by Provider: 08/29/24 12:36 Source: patient Mode of arrival: walk-in History of Present Illness HPI Narrative: The patient is a 23-year-old female who was seen yesterday by her primary care doctor and provided with antibiotic as coverage for possible UTI she came to here after she found that the pharmacy did not fill the prescription yet she have suprapubic discomfort associated with no nausea no vomiting no change in bowel movement The patient when arriving to her room she mentioned that she really have to leave within half an hour because that she have to take her daughter somewhere The patient denies any other complaint other than the suprapubic discomfort Related Data Home Medications ?Medication ?Instructions ?Recorded ?Confirmed midodrine 5 mg tablet 2.5 mg PO DAILY 01/31/24 08/29/24 amoxicillin 875 mg-potassium 1 tab PO BID 08/29/24 08/29/24 clavulanate 125 mg tablet sulfamethoxazole 800 1 tab PO BID 08/29/24 08/29/24 mg-trimethoprim 160 mg tablet Allergies Allergy/AdvReac Type Severity Reaction Status Date / Time cefdinir Allergy Rash Verified 08/13/24 10:42 nitrofurantoin (From Allergy RASH Verified 08/13/24 10:42 Macrobid) Review of Systems ROS Status of ROS 10 or more systems reviewed and unremark able except as noted in history and below [facility] Medical History (Updated 08/29/24 @ 13:00 by Mary Grace Graves MD) delivery delivered ?O82 - Encounter for delivery without indication (ICD-10) Social History Smoking status: Former smoker Little interest or pleasure in doing things: not at all Feeling down, depressed, or hopeless: not at all Exam Narrative Exam Narrative: Nurses notes and vital signs reviewed and patient is not hypoxic. General: Well-appearing and in no apparent distress. Skin: Warm, dry, no pallor noted. No rash. Head: Normocephalic, atraumatic. Neck: Supple, non-tender. Eye: Pupils are equal, round and EOMI. No scleral icterus. Ears, Nose, Mouth, and Throat: TM are clear, no nasal mucosal hypertrophy. Oral mucosa is moist, no posterior oropharynx erythema, uvula is mid-line Cardiovascular: Regular Rate and Rhythm without murmur, gallop or rub. Respiratory: No accessory muscle use or respiratory distress. Lungs are clear to auscultation, no wheezing, rales or rhonchi Chest Wall: no tenderness Back: No midline thoracic or lumbar vertebral tenderness. No CVA tenderness Musculoskeletal: normal ROM, no calf or popliteal tenderness, no lower extremity edema/swelling GI: Abdomen is soft, non-distended. Suprapubic discomfort Neurological: A&O x4. No cranial nerve dysfunction observed. No truncal ataxia. Moves all extremities. Sensation intact. Psychiatric: Cooperative and interactive. Normal mood and affect. Constitutional Vital Signs, click to edit/add: Last Vital Signs Temp 98.1 F 08/29/24 11:34 Pulse 80 08/29/24 11:34 Resp 16 08/29/24 11:34 BP 99/65 08/29/24 11:34 Pulse Ox 98 08/29/24 11:34 O2 Del Method Room Air 08/29/24 11:34 Course Vital Signs Vital signs: Vital Signs Temperature 98.1 F 08/29/24 11:34 Pulse Rate 80 08/29/24 11:34 Respiratory Rate 16 08/29/24 11:34 Blood Pressure 99/65 08/29/24 11:34 Pulse Oximetry 98 08/29/24 11:34 Oxygen Delivery Method Room Air 08/29/24 11:34 Temperature 98.1 F 08/29/24 11:34 Pulse Rate 80 08/29/24 11:34 Respiratory Rate 16 08/29/24 11:34 Blood Pressure 99/65 08/29/24 11:34 Pulse Oximetry 98 08/29/24 11:34 Oxygen Delivery Method Room Air 08/29/24 11:34 MDM - Female Genitourinary MDM Narrative Medical decision making narrative: I did explain to the patient that already wanted to leave as soon as she got to the examination room. At that right now her suprapubic discomfort could be explained by her urine infection that was diagnosed by her primary care doctor Although urinalysis today did not show that result but the patient already had a urinalysis yesterday as well Right now the patient was discharged because she have to leave and I did explain to her that in case no improvement with the UTI management the patient have to come back for further evaluation and she have to make sure that she can wait till she gets full workup As I mentioned above the patient was already asking to leave us when she had up to the room Lab Data Labs: Lab Results 08/29/24 Range/Units 11:39 Urine Color Lt. yellow (YELLOW) Urine Clarity Clear (CLEAR) Urine pH 6.0 (5.0-9.0) Ur Specific [place] >=1.030 A (1.005-1.025) Urine Protein 30 A (NEG/TRACE) mg/dL Urine Glucose (UA) Negative (NEGATIVE) mg/dL Urine Ketones Negative (NEGATIVE) mg/dL Urine Occult Blood Negative (NEGATIVE) Urine Nitrite Negative (NEGATIVE) Urine Bilirubin Negative (NEGATIVE) Urine Urobilinogen 0.2 (0.2-1.0) EU/dL Ur Leukocyte Esterase Negative (NEGATIVE) Urine RBC None seen (0-2) #/HPF Urine WBC None seen (NONE SEEN) #/HPF Ur Squamous Epith Cells Few A (NONE/RARE) #/LPF Urine Bacteria None seen (NONE SEEN) #/HPF Urine Mucus Trace A (NONE SEEN) Ur Culture Indicated? No Urine HCG, Qual Negative (NEGATIVE) Discharge Plan Discharge Chief Complaint: Urogenital-Female Clinical Impression: Abdominal pain Patient Disposition: Home, Self-Care Time of Disposition Decision: 12:59 Condition: Good Prescriptions / Home Meds: No Action midodrine 5 mg tablet 2.5 mg PO DAILY amoxicillin-pot clavulanate 875-125 mg tablet 1 tab PO BID sulfamethoxazole-trimethoprim 800-160 mg tablet 1 tab PO BID Print Language: Italian Instructions: Pelvic Pain (ED) Referrals: Toña Pabon MD [Primary Care Provider] - 1 week Discharge Date/Time: 08/29/24 13:08
== END 2024-08-29 13:08 | disposition home or self-care (01) ==
PROVIDERS: Emergency Provider Emergency Medicine; PCP Family Medicine
DX: R10.9 Unspecified abdominal pain (principal); Z87.891 Personal history of nicotine dependence
CPT/HCPCS: 81001; 84703; 99283

== ENCOUNTER 2024-09-02 20:47 | Outpatient (REF) | payer OTHER, SELFPAY ==
--- OUTSIDE RECORDS SUMMARY | 2024-09-02 20:51 | XMS_ITS | CCD ---
Author Organization [facility] Care Team Providers Care Accountant Budget Name Role Phone LIBERTY PIERRE Primary Care Physician IGNACIO PROVIDERLIBERTY Referring Unavailab Sal Cazares Attending Unavailable Wesly SUE Referring Unavailable Sal DOWNS Attending Unavailable MD Liberty Pierre Primary Care Provider CRISTIN Morales Emergency Provider [phone] Kaci Morales Attending Unavailable Kaci Morales Admitting Unavailable Liberty Pierre Primary Care Unavailable IGNACIO, DR LIBERTY Ye Primary Care Unavailable GLADYS DWYER Attending Unavailable YULIYA, GLADYS Consulting Unavailable YULIYA, GLADYS Admitting Unavailable CHERRIE ROOT Consulting Unavailable RACH, DR CLARY Hdez Consulting Unavailable YULIYA, GLADYS Admitting Unavailable GLADYS DWYER Attending Unavailable IGNACIO, DR LIBERTY Ye Primary Care Unavailable YULIYA, GLADYS Consulting Unavailable RACH, DR CLARY Hdez Consulting Unavailable GLADYS DWYER Admitting Unavailable GLADYS DWYER Attending Unavailable IGNACIO, DR LIBERTY Ye Primary Care Unavailable YULIYA, GLADYS Consulting Unavailable RACH, DR CLARY Hdez Consulting Unavailable GLADYS DWYER Admitting Unavailable GLADYS DWYER Attending Unavailable IGNACIO, DR LIBERTY Ye Primary Care Unavailable YULIYA, GLADYS Consulting Unavailable IGNACIO, DR LIBERTY Ye Admitting [...] Unavailable LINETTE ., DR CALZADA Consulting Unavailable RACH, DR CLARY Hdez Consulting Unavailable IGNACIO, DR LIBERTY Ye Consulting Unavailable Liberty Pierre [...] Attending Unavailable DOMINIQUE, STEPHEN Attending Unavailable LINETTE, WSELY Attending Unavailable LINETTE, WESLY Attending Unavailable LINETTE, WESLY Attending Unavailable LINETTE, WESLY Attending Unavailable DOMINIQUE, STEPHEN Attending Unavailable DOMINIQUE, STEPHEN Attending Unavailable DOMINIQUE, STEPHEN Attending Unavailable DOMINIQUE, STEPHEN Attending Unavailable LINETTE, WESLY Attending Unavailable Allergies Allergy Classification Reported Allergen(s) Allergy Type Date of Onset Reaction(s) Facility (8 sources) cefdinir; Translations: [cefdinir] Drug Allergy Vomiting (disorder) General [facility] (8 sources) NITROFURANTOIN, MACROCRYSTALS / Nitrofurantoin, Monohydrate; Translations: [nitrofurantoin] Drug Allergy Vomiting (disorder) [facility] (1 source) Penicillins Drug allergy (disorder) 11-01-19 22 [facility] Repository (5 sources) patient allergy list reviewed by nurse or physicia Propensity to adverse reactions 04-09-20 19 Comment:Done [facility] Other (5 sources) Allergies Reconciled Propensity to adverse reactions 07-26-20 21 Unknown [facility] Other (4 sources) cefdinir Drug Allergy 07-11-20 23 Unknown [facility] Work Phone: (4 sources) Nitrofurantoin Drug Allergy 07-11-20 23 Unknown [facility] Medications Current Medications Medication Drug Class(es) Dates Sig (Normalized) Sig (Original) [id number] 200 actuat albuterol 0.09 mg/actuat metered dose [...] times daily 40 October 17, 2022 12:00am etonogestrel 68 mg drug implant (2 sources) Progestin Start: 03-05-2024 End: 03-05-2027 etonogestrel-elutin g 68 mg contraceptive implant 1 each famotidine 20 mg oral tablet (3 sources) [...] or chew. . 0 Active midodrine hydrochloride 5 mg oral tablet (8 sources) alpha-Adrenergic Agonist Start: 12-06-2023 midodrine (Proamatine) 5 MG tablet 12/06/2023 Active Start: 05-30-2022 midodrine 2.5 mg oral tablet [...] Start: 05-31-2022 take 1 capsule by mo [facility] once daily omeprazole 20 mg Cap-DR 20 mg = 1 cap(s), Oral, Daily, # 30 cap(s), Refills(s) 3, Pharmacy: [id number], 163.8, cm, 05/31/22 14:35:00 EDT, Height/Length [...] mg oral capsule (2 sources) Start: 09-12-19 24 End: 09-11-19 25 take 1 capsule by mouth once in the morning iron polysaccharides (ProFe) 391.3 (180 Fe) MG capsule Indications: Anemia during in second trimester Take 1 capsule (391.3 mg) by mouth in the morning. 90 capsule 3 09/12/2023 09/11/2024 Active Scxjdy-ImIsp-FiEvw-FA-[facility] Hilary 400 ec) 29-1-200 & 400 MG (DR) misc (2 sources) take 1 tablet by mouth in the morning Dmdatg-LeIpf-XyDsu-FA-[facility] [place] Hilary 400 ec) 29-1-200 & 400 MG [...] disease (1 source) Atherosclerotic heart disease of [place] coronary artery without angina pectoris; Translations: [Atherosclerotic heart disease of [place] coronary artery without angina pectoris] Onset: 4 [...] UA Negative Negative - 4(70) +++ mg/dL [facility] Blood, UA Negative Negative - 50 Kevin/mcL [facility] Clarity, UA Clear [facility] Color, UA Yellow [facility] Glucose, UA Negative Negative - 1999(110) ++++ mg/dL [facility] Interpretation and review of laboratory results Normal [facility] Ketones, UA Negative Negative - 160(16) ++++ mg/dL [facility] Leukocytes, UA Negative Negative - 500+++ Elijah/mcL [facility] Nitrite, UA Negative Negative - Positive [facility] pH, UA 6.0 5 - 9 [facility] Protein, UA Negative Negative - 1999(20) ++++ mg/dL [facility] Spec Grav, UA 1.025 1 - 1.03 [facility] Urobilinogen, UA 0.2 0.2 - 12 mg/dL [facility] 36on 08-15-2023 36 Msg left on patients phone today regarding telehealth. Normal 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 COVID Quick Testingon 2022 Result Negative [facility] Other Quick Strepon 07-22-2023 S. pyogenes Org specific cx Ql (Throat) Negative Synovex Other Quick Strep [facility] Other MRI LEG LT WO CONon 11-03-19 [...] CHERRIE ROOT Date: 2022-11-02 23:11 Normal [facility] Amphetamine Screen Ql (U)Ord ered By: Kaci Morales on 10-17-2022 Amphetamines Ql (U) Negative Negative [facility] Automated erythrocytes count in urine sediment (number/area)Ordered By: Kaci Morales on 10-17-2022 RBC Auto (Urine sed) [#/Area] 20-49 [HPF] 0-4 [facility] Automated leukocytes count i n urine sediment (number/area)Ordered By: Kaci Morales on 10-17-2022 WBC Auto (Urine sed) [#/Area] 20-49 [HPF] 0-4 [facility] Automated urine hyaline cast s count (number/volume)Ordered By: Kaci Morales on 10-17-2022 Hyaline casts Auto (U) [#/Vol] None seen [LPF] 0-1 [facility] Automated urine sediment joe cium oxalate crystal count by microscopy (number/high powOrdered By: Kaci Morales on 10-17-2022 Calcium oxalate crystals LM.HPF (Urine sed) [#/Area] 3+ [HPF] [facility] Barbiturates [Presence] in U rineOrdered By: Kaci Morales on 10-17-2022 Barbiturates Ql (U) Negative Negative [facility] Basic Metabolic Panelon Anion gap [Moles/Vol] 13.2 mmol/L Normal 6.0-15.0 [facility] Comment on above: Performed By: #### H S TROP, BMP, CBC #### [facility] [address] Calcium [Mass/Vol] 9.5 mg/dL Normal 8.2-10.2 [facility] Comment on above: Performed By: #### H S TROP, BMP, CBC #### [facility] [address] [place] [address] [place] Chloride [Moles/Vol] 103 mmol/L Normal 95-114 [facility] Comment on above: Performed By: #### H S TROP, BMP, CBC #### [facility] [address] [place] [address] [place] CO2 [Moles/Vol] 25.5 mmol/L Normal 22.0-30.0 [facility] Comment on above: Performed By: #### H S TROP, BMP, CBC #### [address] Creatinine [Mass/Vol] 0.80 mg/dL Normal 0.44-1.03 [facility] Comment on above: Performed By: #### H S TROP, BMP, CBC #### [place] [address] [place] Creatinine Clr Calc Pharmacy 87.98 [facility] Comment on above: Result Comment: PERF ORMED BY: [place] [address] PATHOLOGIST ASSEMBLY MACHINE OPERATOR ZEB BASURTO M.D. Performed By: #### H S TROP, BMP, CBC #### [address] Estimated GFR ( Adelita > 60 [facility] Comment on above: Result Comment: GFR estimated reference range: According to KDOQI guidelines, <60 ml/min/1.73m2 is sufficient to diagnose a patient with chronic kidney disease. Performed By: #### H S TROP, BMP, CBC #### [facility] [address] [place] [address] [place] Estimated GFR (Non- Am > 60 [facility] Comment on above: Performed By: #### H S TROP, BMP, CBC #### [facility] [address] [place] [address] [place] Glucose [Mass/Vol] 118 mg/dL High 70-100 [facility] Comment on above: Result Comment: [place] Glucose Reference Range is dependent on time and content of last meal. Glucose of more than 200 mg/dL in a nonstressed, ambulatory subject supports the diagnosis of Diabetes Mellitus. ADA recommended reference range Performed By: #### H S TROP, BMP, CBC #### [facility] [address] Potassium [Moles/Vol] 3.7 mmol/L Normal 3.5-5.1 [facility] Comment on above: Performed By: #### H S TROP, BMP, CBC #### [facility] [address] [place] [address] [place] Sodium [Moles/Vol] 138 mmol/L Normal 136-146 [facility] Comment on above: Performed By: #### H S TROP, BMP, CBC #### [facility] [address] [place] [address] [place] Urea nitrogen [Mass/Vol] 10 mg/dL Normal 9-23 [facility] Comment on above: Performed By: #### H S TROP, BMP, CBC #### [facility] [address] [place] [address] [place] Basophils Auto (Bld) [#/Vol] Ordered By: Kaci Morales on 10-17-2022 Basophils (Bld) [#/Vol] 0.0 10*3/uL 0.0-0.2 [facility] Basophils/100 WBC Auto (Bld) Ordered By: Kaci Morales on 10-17-2022 Basophils/100 WBC (Bld) 0.4 % . [facility] Benzodiazepines [Presence] i n UrineOrdered By: Kaci Morales on 10-17-2022 Benzodiazepines Ql (U) Negative Negative [facility] Bilirubin Test strip Ql (U)O rdered By: Kaci Morales on 10-17-2022 Bilirubin Ql (U) 1+ Negative [facility] CT head/brain wo conon 10-17 CT head/brain wo con [facility] [place] [address] [place] [address] CT Scan Report Signed Patient: Senthil Scott MR#: [id number] 949 : 2000 Acct:[id number] Age/Sex: 21 / F ADM Date: 10/17/22 Loc: ER Room: Type: [facility] ER Attending Dr: Copies to: [...] Maricruz Vick M.D.10/17/2022 5:07 PM Dictation Location: [place] [address] Transcribed By: [facility] 10/17/221706 Dictated By: Maricruz Vick MD 10/17/221703 Signed By: 10/17/221706 Normal [facility] Cannabinoids [Presence] in U rine by Screen methodOrdered By: Kaci Morales on 10-17-2022 Cannabinoids Screen Ql (U) Positive Negative [facility] Comment on above: These are unconfirme d [...] (Urine sed) None seen [LPF] None Seen [facility] Color Auto (U)Ordered By: Yuriy Morales on 10-17-2022 Color (U) Dark yellow Yellow [facility] Complete Blood Count Auto Di ffon 10-17-2022 Basophils (Bld) [#/Vol] 0.0 10*3/uL Normal 0.0-0.2 [facility] Comment on above: Result Comment: PERF ORMED BY: [place] [address] PATHOLOGIST ASSEMBLY MACHINE OPERATOR ZEB BASURTO M.D. Performed By: #### H S TROP BMP, CBC #### [facility] [address] [place] [address] [place] Basophils/100 WBC (Bld) 0.4 % Normal . [facility] Comment on above: Performed By: #### H S TROP BMP, CBC #### [facility] [address] [place] [address] [place] Eosinophils (Bld) [#/Vol] 0.0 10*3/uL Normal 0.0-0.45 [facility] Comment on above: Performed By: #### H S TROP BMP, CBC #### [facility] [address] [place] [address] [place] Eosinophils/100 WBC (Bld) 0.4 % Normal . [facility] Comment on above: Performed By: #### H S TROP BMP, CBC #### [facility] [address] [place] [address] [place] Erythrocyte distribution width (RBC) [Ratio] 13.0 % Normal 11.9-15.3 [facility] Comment on above: Performed By: #### H S TROP BMP, CBC #### [facility] [address] [place] [address] [place] Hematocrit (Bld) [Volume fraction] 37.2 % Normal 34.0-46.4 [facility] Comment on above: Performed By: #### H S TROP BMP, CBC #### [facility] [address] [place] [address] [place] Hemoglobin (Bld) [Mass/Vol] 12.4 g/dL Normal 11.8-15.4 [facility] Comment on above: Performed By: #### H S TROP BMP, CBC #### [facility] [address] [place] [address] [place] Lymphocytes (Bld) [#/Vol] 1.1 10*3/uL Normal 1.00-4.8 [facility] Comment on above: Performed By: #### H S TROP, BMP, CBC #### [facility] [address] Lymphocytes/100 WBC (Bld) 14.5 % Normal . [facility] Comment on above: Performed By: #### H S TROP, BMP, CBC #### [facility] [address] MCH (RBC) [Entitic mass] 29.4 pg Normal 24.7-34.3 [facility] Comment on above: Performed By: #### H S TROP, BMP, CBC #### [address] MCV (RBC) [Entitic vol] 88.6 fL Normal 80-100 [facility] Comment on above: Performed By: #### H S TROP, BMP, CBC #### [facility] [address] Mean Corpuscular HGB Conc 33.2 g/dL Normal 32.0-35.0 [facility] Comment on above: Performed By: #### H S TROP, BMP, CBC #### [facility] [address] [place] [address] [place] Monocytes (Bld) [#/Vol] 0.4 10*3/uL Normal 0.0-0.8 [facility] Comment on above: Performed By: #### H S TROP, BMP, CBC #### [facility] [address] [place] [address] [place] Monocytes/100 WBC (Bld) 14.49 % Normal 0.00-20.00 [facility] Comment on above: Performed By: #### H S TROP, BMP, CBC #### [facility] [address] [place] [address] [place] Monocytes/100 WBC (Bld) 5.2 % Normal . [facility] Comment on above: Performed By: #### H S TROP, BMP, CBC #### [facility] [address] Neutrophils (Bld) [#/Vol] 5.8 10*3/uL Normal 1.8-7.7 [facility] Comment on above: Performed By: #### H S TROP, BMP, CBC #### [facility] [address] Neutrophils/100 WBC (Bld) 79.5 % Normal . [facility] Comment on above: Performed By: #### H S TROP, BMP, CBC #### [facility] [address] NRBC% 0.1 /100{WBC} Normal 0-0.5 [facility] Comment on above: Performed By: #### H S TROP, BMP, CBC #### [facility] [address] Platelet mean volume (Bld) [Entitic vol] 7.9 fL Normal 6.3-10.7 [facility] Comment on above: Performed By: #### H S TROP, BMP, CBC #### [place] [address] [place] Platelets (Bld) [#/Vol] 229 10*3/uL Normal 150-450 [facility] Comment on above: Performed By: #### H S TROP, BMP, CBC #### [facility] [address] [place] [address] [place] RBC (Bld) [#/Vol] 4.19 10*6/uL Normal 3.60-5.00 [facility] Comment on above: Performed By: #### H S TROP, BMP, CBC #### [place] [address] [place] WBC (Bld) [#/Vol] 7.3 10*3/uL Normal 3.8-11.6 [facility] Comment on above: Performed By: #### H S TROP, BMP, CBC #### [address] [address] [place] Creatinine and Glomerular fi ltration rate.predicted panel (S/P/Bld)Ordered By: Kaci Morales on 10-17-2022 Creatinine [Mass/Vol] 0.80 mg/dL 0.44-1.03 [facility] Dipstick and Microscopicon 0 10-17-2022 Appearance (U) Cloudy Critically abnormal Clear [facility] Comment on above: Order Comment: Name Collection Type:: Clean-Voided Midstream Performed By: #### A DDONUAPLUS, UHCG, CUU #### [facility] [address] [place] [address] [place] Bacteria,Urine 1+ High None Seen [facility] Comment on above: Order Comment: Name Collection Type:: Clean-Voided Midstream Performed By: #### A DDONUAPLUS, UHCG, CUU #### [facility] [address] [place] [address] Bilirubin,Urine 1+ High Negative [facility] Comment on above: Order Comment: Name Collection Type:: Clean-Voided Midstream Performed By: #### A DDONUAPLUS, UHCG, CUU #### [facility] [address] [place] [address] [place] Calcium Oxalate Crystals,Urine 3+ Normal [facility] Comment on above: Order Comment: Name Collection Type:: Clean-Voided Midstream Performed By: #### A DDONUAPLUS, UHCG, CUU #### [facility] [address] [place] [address] [place] Color (U) Dark Yellow Critically abnormal Yellow [facility] Comment on above: Order Comment: Name Collection Type:: Clean-Voided Midstream Performed By: #### A DDONUAPLUS, UHCG, CUU #### [facility] [address] [place] [address] [place] Glucose Ql (U) Normal Normal Normal [facility] Comment on above: Order Comment: Name Collection Type:: Clean-Voided Midstream Performed By: #### A DDONUAPLUS, UHCG, CUU #### [facility] [address] [place] [address] [place] Hyaline Casts,Urine None Seen Normal 0-1 [facility] Comment on above: Order Comment: Name Collection Type:: Clean-Voided Midstream Performed By: #### A DDONUAPLUS, UHCG, CUU #### [facility] [address] [place] [address] [place] Ketones Ql (U) 1+ High Negative [facility] Comment on above: Order Comment: Name Collection Type:: Clean-Voided Midstream Performed By: #### A DDONUAPLUS, UHCG, CUU #### [facility] [address] [place] [address] Leukocyte esterase Test strip Ql (U) 2+ High Negative [facility] Comment on above: Order Comment: Name Collection Type:: Clean-Voided Midstream Performed By: #### A DDONUAPLUS, UHCG, CUU #### [facility] [address] [place] [address] [place] Nitrite,Urine Negative Normal Negative [facility] Comment on above: Order Comment: Name Collection Type:: Clean-Voided Midstream Performed By: #### A DDONUAPLUS, UHCG, CUU #### [facility] [address] [place] [address] [place] Occult Blood,Urine 3+ High Negative [facility] Comment on above: Order Comment: Name Collection Type:: Clean-Voided Midstream Performed By: #### A DDONUAPLUS, UHCG, CUU #### [facility] [address] [place] [address] [place] Othe Crystals,Urine None Seen Normal [facility] Comment on above: Order Comment: Name Collection Type:: Clean-Voided Midstream Performed By: #### A DDONUAPLUS, UHCG, CUU #### [facility] [address] [place] [address] [place] Other Casts,Urine None Seen Normal None Seen [facility] Comment on above: Order Comment: Name Collection Type:: Clean-Voided Midstream Performed By: #### A DDONUAPLUS, UHCG, CUU #### [facility] [address] [place] [address] pH (U) 5.0 [pH] Normal 5.0-9.0 [facility] Comment on above: Order Comment: Name Collection Type:: Clean-Voided Midstream Performed By: #### A DDONUAPLUS, UHCG, CUU #### [facility] [address] [place] [address] Protein (U) [Mass/Vol] 100 mg/dL High Negative [facility] Comment on above: Order Comment: Name Collection Type:: Clean-Voided Midstream Performed By: #### A DDONUAPLUS, UHCG, CUU #### [facility] [address] [place] [address] [place] RBC,Urine 20-49 High 0-4 [facility] Comment on above: Order Comment: Name Collection Type:: Clean-Voided Midstream Performed By: #### A DDONUAPLUS, UHCG, CUU #### [address] Specificy [place],Urine 1.035 High 1.001-1.030 [facility] Comment on above: Order Comment: Name Collection Type:: Clean-Voided Midstream Performed By: #### A DDONUAPLUS, UHCG, CUU #### [address] Squamous Epithelial Cell,Urine 5-9 High 0-2 [facility] Comment on above: Order Comment: Name Collection Type:: Clean-Voided Midstream Performed By: #### A DDONUAPLUS, UHCG, CUU #### [place] [address] [place] Urobilinogen,Urine Normal Normal Normal [facility] Comment on above: Order Comment: Name Collection Type:: Clean-Voided Midstream Performed By: #### A DDONUAPLUS, UHCG, CUU #### [place] [address] [place] WBC,Urine 20-49 High 0-4 [facility] Comment on above: Order Comment: Name Collection Type:: Clean-Voided Midstream Performed By: #### A DDONUAPLUS, UHCG, CUU #### [address] Drug Screen,Urineon 10-17-19 23 Amphetamine Screen,Urine Negative Normal Negative [facility] Comment on above: Performed By: #### U RDS #### [place] [address] [place] Barbiturate Screen,Urine Negative Normal Negative [facility] Comment on above: Performed By: #### U RDS #### [address] Benzodiazepines Screen,Urine Negative Normal Negative [facility] Comment on above: Performed By: #### U RDS #### [address] Cannabinoid Screen,Urine Positive High Negative [facility] Comment on above: Result Comment: Thes e are unconfirmed results and should not be used for legal purposes. Drug Cut-Off Concentration: AMPH 1000 ng/mL JERRY 200 ng/mL BOBBI 200 ng/mL COCM 300 ng/mL OP 300 ng/mL PCP 25 ng/mL THC 20 ng/mL PERFORMED BY: [place] [address] PATHOLOGIST ASSEMBLY MACHINE OPERATOR ZEB BASURTO M.D. Performed By: #### U RDS #### [place] [address] [place] Cocaine Screen,Urine Negative Normal Negative [facility] Comment on above: Performed By: #### U RDS #### [address] Opiate Screen,Urine Negative Normal Negative [facility] Comment on above: Performed By: #### U RDS #### [address] Phencyclidine Screen,Urine Negative Normal Negative [facility] Comment on above: Performed By: #### U RDS #### [address] ECG 12 lead ECGon 10-17-2022 ECG 12 lead ECG [facility] [place] [address] Electrocardiograph Report Signed Patient: Senthil Scott MR#: [id number] 949 : 2000 Acct:[id number] Age/Sex: 21 / F ADM Date: 10/17/22 Loc: ER Room: Type: [facility] ER Attending Dr: Ordering Provider: Kaci Morales [...] Rightward axis Confirmed by Hai DUFFY DO ([id number]) on 10/17/2022 6:46:54 PM Referred By: Electronically Signed By:Hai DUFFY DO Transcribed By: MUS Signed By Hai Duffy DO 0 10/17/22 1846 Normal [facility] Eosinophils Auto (Bld) [#/Vo l]Ordered By: Kaci Morales on 10-17-2022 Eosinophils (Bld) [#/Vol] 0.0 10*3/uL 0.0-0.45 [facility] Eosinophils/100 WBC Auto (Bl d)Ordered By: Kaci Morales on 10-17-2022 Eosinophils/100 WBC (Bld) 0.4 % . [facility] Erythrocyte distribution wid th Auto (RBC) [Ratio]Ordered By: Kaci Morales on 10-17-2022 Erythrocyte distribution width (RBC) [Ratio] 13.0 % 11.9-15.3 [facility] Estimated glomerular filtrat ion rate (GFR) non- AmericanOrdered By: Kaci Morales on 10-17-2022 GFR/1.73 sq M.predicted among non-blacks MDRD (S/P/Bld) [Vol rate/Area] > 60 mL/Min [facility] HCG ( test) IA.rapi d Ql (U)Ordered By: Kaci Morales on 10-17-2022 HCG ( test) Ql (U) Negative [facility] HCG,Urineon 10-17-2022 Beta HCG ( test) Ql (U) Negative Normal [facility] Comment on above: Order Comment: Name Collection Type:: Clean-Voided Midstream Result Comment: PERF ORMED BY: [facility] [address] [place] [address] PATHOLOGIST ASSEMBLY MACHINE OPERATOR ZEB BASURTO M.D. Performed By: #### A DDONUABEBA, [facility] [place], [facility] #### [facility] [address] Hematocrit Auto (Bld) [Volum e fraction]Ordered By: Kaci Morales on 10-17-2022 Hematocrit (Bld) [Volume fraction] 37.2 % 34.0-46.4 [facility] Hemoglobin [Mass/volume] in BloodOrdered By: Kaci Morales on 10-17-2022 Hemoglobin (Bld) [Mass/Vol] 12.4 g/dL 11.8-15.4 [facility] Ketones Auto test strip (U) [Mass/Vol]Ordered By: Kaci Morales on 10-17-2022 Ketones (U) [Mass/Vol] 1+ Negative [facility] Laboratory - Drug toxicology Ordered By: Kaci Morales on 10-17-2022 Opiates Ql (U) Negative Negative [facility] Leukocytes [#/volume] correc marv for nucleated erythrocytes in Blood by Automated counOrdered By: Kaci Morales on 10-17-2022 WBC corrected for nucl RBC Auto (Bld) [#/Vol] 7.3 10*3/uL 3.8-11.6 [facility] Lymphocytes Auto (Bld) [#/Vo l]Ordered By: Kaci Morales on 10-17-2022 Lymphocytes (Bld) [#/Vol] 1.1 10*3/uL 1.00-4.8 [facility] Lymphocytes/100 WBC Auto (Bl d)Ordered By: Kaci Morales on 10-17-2022 Lymphocytes/100 WBC (Bld) 14.5 % . [facility] MCH Auto (RBC) [Entitic mass ]Ordered By: Kaci Morales on 10-17-2022 MCH (RBC) [Entitic mass] 29.4 pg 24.7-34.3 [facility] MCHC Auto (RBC) [Mass/Vol]Or dered By: Kaci Morales on 10-17-2022 MCHC (RBC) [Mass/Vol] 33.2 g/dL 32.0-35.0 [facility] MCV Auto (RBC) [Entitic vol] Ordered By: Kaci Morales on 10-17-2022 MCV (RBC) [Entitic vol] 88.6 fL 80-100 [facility] Monocyte distribution width [Entitic volume] in Blood by AutomatedOrdered By: Kaci Morales on 10-17-2022 Monocyte distribution width Auto (Bld) [Entitic vol] 14.49 % 0.00-20.00 [facility] Monocytes Auto (Bld) [#/Vol] Ordered By: Kaci Morales on 10-17-2022 Monocytes (Bld) [#/Vol] 0.4 10*3/uL 0.0-0.8 [facility] Monocytes/100 WBC Auto (Bld) Ordered By: Kaci Morales on 10-17-2022 Monocytes/100 WBC (Bld) 5.2 % . [facility] Neutrophils Auto (Bld) [#/Vo l]Ordered By: Kaci Morales on 10-17-2022 Neutrophils (Bld) [#/Vol] 5.8 10*3/uL 1.8-7.7 [facility] Neutrophils/100 WBC Auto (Bl d)Ordered By: Kaci Morales on 10-17-2022 Neutrophils/100 WBC (Bld) 79.5 % . [facility] Nitrite Test strip Ql (U)Ord ered By: Kaci Morales on 10-17-2022 Nitrite Ql (U) Negative Negative [facility] No Panel InformationOrdered By: Kaci Morales on 10-17-2022 Estimated GFR () > 60 mL/Min [facility] Comment on above: GFR estimated refere nce range: According to KDOQI guidelines, <60 ml/min/1.73m2 is sufficient to diagnose a patient with chronic kidney disease. Pharmacy Creatinine Clearance (Chem 87.98 [facility] Nucleated erythrocytes [Pres ence] in Blood by Automated countOrdered By: Kaci Morales on 10-17-2022 Nucleated RBC Auto Ql (Bld) 0.1 /100{WBC} 0-0.5 [facility] Phencyclidine Screen Ql (U)O rdered By: Kaci Morales on 10-17-2022 Phencyclidine Ql (U) Negative Negative [facility] Platelet mean volume Auto (B ld) [Entitic vol]Ordered By: Kaci Morales on 10-17-2022 Platelet mean volume (Bld) [Entitic vol] 7.9 fL 6.3-10.7 [facility] Platelets Auto (Bld) [#/Vol] Ordered By: Kaci Morales on 10-17-2022 Platelets (Bld) [#/Vol] 229 10*3/uL 150-450 [facility] Protein Auto test strip (U) [Mass/Vol]Ordered By: Kaci Morales on 10-17-2022 Protein (U) [Mass/Vol] 100 mg/dL Negative [facility] RBC Auto (Bld) [#/Vol]Ordere d By: Kaci Morales on 10-17-2022 RBC (Bld) [#/Vol] 4.19 10*6/uL 3.60-5.00 [facility] Serum or plasma anion gap de terminationOrdered By: Kaci Morales on 10-17-2022 Anion gap [Moles/Vol] 13.2 mmol/L 6.0-15.0 [facility] Serum or plasma calcium jesus urement (mass/volume)Ordered By: Kaci Morales on 10-17-2022 Calcium [Mass/Vol] 9.5 mg/dL 8.2-10.2 [facility] Serum or plasma chloride iam surement (moles/volume)Ordered By: Kaci Morales on 10-17-2022 Chloride [Moles/Vol] 103 mmol/L 95-114 [facility] Serum or plasma glucose jesus urement (mass/volume)Ordered By: [facility] 10-[facility]22 Glucose [Mass/Vol] 118 mg/dL 70-100 [facility] Comment on above: ADA recommended refe rence rangeRandom Glucose Reference Range is dependent on time and content of last meal. Glucose of more than 200 mg/dL in a nonstressed, ambulatory subject supports the diagnosis of Diabetes Mellitus. Serum or plasma potassium me asurement (moles/volume)Ordered By: [facility] on 10-17-2022 Potassium [Moles/Vol] 3.7 mmol/L 3.5-5.1 [facility] Serum or plasma sodium measu rement (moles/volume)Ordered By: [facility] on 10-17-2022 Sodium [Moles/Vol] 138 mmol/L 136-146 [facility] Serum or plasma total carbon dioxide measurement (moles/volume)Ordered By: [facility] on 10-17-2022 CO2 [Moles/Vol] 25.5 mmol/L 22.0-30.0 [facility] Serum or plasma urea nitroge n measurement (mass/volume)Ordered By: [facility] on 10-17-2022 Urea nitrogen [Mass/Vol] 10 mg/dL 9-23 [facility] Specific gravity Auto test s trip (U) [Rel density]Ordered By: [facility] on 10-17-2022 Specific gravity (U) [Rel density] 1.035 1.001-1.030 [facility] Squamous epithelial cells de tection in urine sediment by light microscopyOrdered By: [facility] on 10-17-2022 Epithelial cells.squamous LM Ql (Urine sed) 5-9 [HPF] 0-2 [facility] Troponin I High Sensitivityo n 10-17-2022 Troponin I High Sensitivity < 3 Normal 0-15 [facility] Comment on above: Result Comment: PERF ORMED BY: [facility] [address] [place] [address] PATHOLOGIST ASSEMBLY MACHINE OPERATOR ZEB BASURTO M.D. Performed By: #### H S TROP, BMP, CBC #### [facility] [address] [place] [id number] [facility] Troponin I.cardiac [Mass/vol ume] in Serum or Plasma by High sensitivity methodOrdered By: Kaci Morales on 10-17-2022 Troponin I.cardiac High sensitivity method [Mass/Vol] < 3 pg/mL 0-15 [facility] Urine Cultureon 10-17-2022 Bacteria identified Cx Nom (U) 75,000 colonies/ml mixed bacterial skin contaminants 2 Days PERFORMED BY: [place] [address] PATHOLOGIST ASSEMBLY MACHINE OPERATOR ZEB BASURTO M.D. [facility] Comment on above: Performed By: #### A JESUS, EFECG, CUU #### [facility] [address] [place] [address] Urine bacteria detection by automated methodOrdered By: Kaci Morales on 10-17-2022 Bacteria Auto Ql (U) 1+ None Seen [facility] Urine clarity by refractomet ry automatedOrdered By: Kaci Morales on 10-17-2022 Clarity Refractometry automated (U) Cloudy Clear [facility] Urine cocaine detectionOrder ed By: Kaci Morales on 10-17-2022 Cocaine Ql (U) Negative Negative [facility] Urine glucose measurement by automated test strip (mass/volume)Ordered By: Kaci Morales on 10-17-2022 Glucose Auto test strip (U) [Mass/Vol] Normal mg/dL Normal [facility] Urine hemoglobin detection b y automated test stripOrdered By: Kaci Morales on 10-17-2022 Hemoglobin Auto test strip Ql (U) 3+ Negative [facility] Urine leukocyte esterase det ection by automated test stripOrdered By: Kaci Morales on 10-17-2022 Leukocyte esterase Auto test strip Ql (U) 2+ Negative [facility] Urine sediment crystal ident ification by light microscopyOrdered By: Kaci Morales on 10-17-2022 Crystals LM Nom (Urine sed) None seen [HPF] [facility] Urobilinogen Auto test strip (U) [Mass/Vol]Ordered By: Kaci Morales on 10-17-2022 Urobilinogen (U) [Mass/Vol] Normal mg/dL Normal [facility] WBC Auto (Bld) [#/Vol]Ordere d By: Kaci Morales on 10-17-2022 WBC (Bld) [#/Vol] 7.3 10*3/uL 3.8-11.6 [facility] XR chest 1V portableon 10-17 XR chest 1V portable [facility] Main [address] [address] XRay Report Signed Patient: Senthil Scott MR#: [id number] 949 : 2000 Acct:[id number] Age/Sex: 21 / F ADM Date: 10/17/22 [...] Maricruz Vick M.D.10/17/2022 4:47 PM Dictation Location: [place] [address] Transcribed By: [facility] 10/17/22 1647 Dictated By: Maricruz Vick MD 10/17/22 1645 Signed By: 10/17/22 1647 Normal [facility] pH Auto test strip (U)Ordere d By: Kaci Morales on 10-17-2022 pH (U) 5.0 [pH] 5.0-9.0 [facility] Provider Letter FTMCon 05-[address] [facility] May 31, 2022 SENTHIL SCOTT [address] [place] [phone] SENTHIL SCOTT 2000 To Whom It May Concern, Please excuse above patient from work 05/28/2022. Dr. Sal Downs MD General Surgery [facility] Provider Letteron 05-17-2022 Provider Letter May 17, 2022 SENTHIL SCOTT [address] [place] [address] RADHA LAMB [phone] SENTHIL SCOTT 2000 Dear Senthil, We have been trying to reach you with no success. It is important that you return our call regarding your referral from Dr. Ham upon receiving this letter. Also, at the time of your call, please provide us with your current information. Thank you for your prompt attention to this matter. Sincerely, General Surgery [phone] [facility] Physician Referralon 022 Physician Referral [phone] [id number] [facility] 2018 Novel Coronavirus (CoVI D-19), EMELYN LCon 02-10-2022 SARS-CoV-2 (COVID-19) RNA EMELYN+probe Ql (Unsp spec) Not detected Invalid Interpretation Code Not Detected [facility] Comment on above: Order Comment: [id number] 1 # [phone] Result Comment: This nucleic acid amplification test was developed and its performance characteristics determined by [employer]. Nucleic acid amplification tests include RT- PCR [...] detected) result in this assay. Performed At: [facility] [address] [place], [place] [id number] Sanjuanita Hernández PhD Ph:[phone] Performed By: #### 6 [id number] #### [facility] ([facility]) [address] [place] [address] Coding Summaryon 02-10-2022 Coding Summary [employer] 64 MwvrtngfJSd4pWh+PGh lYWQ+TC6JXSAuD04ehB HthJ9AP4fYSV4KVFBGI CDSHU5NOA8oaMV9ILrr J8NghvRg RibtfJZnJB03OOn4HIT 0dDunANxopT5txCXsJ7 r8XgXqYJ58pM60ACzgK HAkZfL6ZsUfijbycAFs N6guIfNcrNQsRpx+PHR hYmxlIHdpZHRoPScxMD EpDcPsuKdgMC8iKl8hK GVyLWNvbGxhcHNlOiBj f1vaRZVdIQqbSX2xrCq oO8RnjNQ2PMVuf3v3Qj 48dHI+QTNaLAU1cEucK Ttsw868KmZeo0wqLND6 gFRyYSijKLE4J07by1Z 9PNXsHQKbAVU5eKF8fS 1nlCqdxaanG9WndCSmO cA1EKJ1dPJxfS4zzHxd duspcX2aOyz+R51PMW5 IAFBTSC3JNca0Z9HsTb wvdHI+ME65AEUhLF07v AWbbZOgh3ylgId4ZyGc CCPfJUH3gAabQAixd3Y vKCZoN64xmFFqa5V1YQ UjpFydqDRxAgZaqOK0j C5iWBtcwslcy8mzxkpm Paldo2urbi75eJ07Z76 rIHnaWXKrYUQ3PAOzTW QplJjswh4clC0zTz0+I Yqpj2yfh1uemXq0ShKc YBShpbOvjKptLVY7t8S vZc64G4EnrLpbn4HlNl i8mx41yLWmb5C5sML8O CkkNBVtqT3hKFovQwF3 HHOiWiQwfI02yLJvZOg aVh7vrWaicMqeRS9kFJ KennhrLPIztG7kKCTsi MUeyDkgZN2eQPBesvpq f942SbMeSDO6GHVhwZJ qE4FhcM1zKtXzHDPcDZ WpO5DjkYEuZHlbN270R AutVnB5YMKxfsVaK3Eh MRLkhBelKkC9f2A5Qt4 Ar3HspegeRMJ8QElqTC G6IxLsEqTbSpM5H6DvC os7LFJfzDjmWL6mF0Aj KRTimufyzdrzlCS9KQD oYYMihK81bKXiUFbfFg 0nz7G5i023TREqPRWas N77Qd0udLjaREKgfSGL jK1rurdhs3xgsrvwGeD cPLFeQLb4KZx3VVIvxJ qqYyRhKXZ8BkH4GBN4j TWbrO8pdCsnskqafS7l Oyc+I50flN0eVNM7OSK 7jutoHPCrtqDnTM08GH 59Z5UwYexhjZSwaTD+P MNjlbNhfHugTT5eOaWo e3edc7ZvFTqpL7KuKBH lMYedJzt2WSYtGZU8wI D0qH4uLPZmLCwjk9C3c JM2V4PttnHcix1es4wz NWMwNXrhE94psLQtt2F 4AIMtmMG4ANVjsRmsQy JcwB27Dew+PGNvbGdyb 2AgExlqj8dei0qcgNw3 IjMwJSIgdmFsaWduPSJ 7n4RdXp69X53kKFmdSL RoPSIxNSUiIHZhbGlnb y0ziH4jYq7+PGNvbCB3 vQG7yU3rQDCbSyV3KRu hD628SjIhoCFkRhgun5 msf9nezPw2OfNiZOXpq fVcgXwyXAP9f3KtCd39 U24nQChlAGIvMYRsNEF xVOKzfGttsy7kaP4jPp 8+PT4ja8ijkz20xV01t HI+XGPoZSV4vHyxDLjq JUZbgK1uBKxkNjU4FQG rHpNkiF78wNFwTAkwBm 5jrTnrlKdyKU6fYKEnr rbpi053OoObk0rdJQZv hNLrWUhoWBX5W26li4W 3ZSUfGKOtNBR9fHH9sB 1hbGlnbjogbGVmdDsgd wVreOwhIIgqEKjdT792 IHRvcDsnPlBhdGllbnQ cKbUsNNm8H0FcIzg7HZ OduBciYP8erBKtDJojU s1bdDanzMsxCM5kMSFp wkxyk923WjSyg2noAIG zmHHoAZjxFGX7Z45ws1 Z8XDSgZQGpCST8sIW6h K6zdAigqtxndJTwqAff atOevBpaSDdiTJysD28 6IHRvcDsnPkJpcnRoIE HmnBB2EY25IF08vYZkv 2H2oIK5Q4RpGPMbohtb kzwabWR4YAUmIVAgqY0 5Ou8hqOfqJq0lEUIcLK L1IHGruXMoK0UnxO5zO yQzWPSnYXIbO5NyiHMc GQysP553VJtjWvR6HQX hupRaG0IdMUXpsBscDq N7n6A3Tw2MC2R4UY47V A08jGJwr2B6sXC5P2Gu NPMyegnfmbnvvJB5XCX qEPRkqQ30Hu4qcXpuMm 2fQELaNUQ6YSFdlBFlR 6UedZ8sIfJaPKTkTGEd F4UadDIpBKruL718ZLk vQuK2NAVijnYdI6DlTX PsbNhqElS1x3S8Ef0YR Cc0IA68GA86vZMyz0S8 pAG9K3QgCSBxhdcjsyq msBK1OTYoQVNmxJ60Za 6aiCmmJs6sRFNrNYH8I WOvcGIvX6NlfU3aPvHa MKRzAHQmF1UuxDUaZOi nH271MVibGxX0QRAqbm ToQ2SjGVSqpKmvAaX7i 8X2Ra4ZIBVdBH25FAK8 lUH6JA78FJ19O1RqHap vdGFibGU+PHRhYmxlIH dpZHRoPScxMDAlJyBzd IvtQY4bNq6cSOAlSVKe qVanzFZtDoBse2kxARG kBPzqCO6aiZhpF9XqzD P0VTLek1q4Vo60D82eJ 3JvdXA+PIMyfSJ6mTO5 tL8nMcHuJxP0ZRddK20 4YlOhwOFqEfiag7xra8 ydxXb5NxI9WGZhqgZka GrrTSV3k9VjXl62D21q IHdpZHRoPSIxNSUiIHZ ikTfcqp4opD2aTp6+PG WqoPI6xWJ9iF7pDwCpL sM9BDjvP581FiAdpBRv Grxax3knn4rskGz0QiC iBHGhroEsrNwmDJD4y8 LnYm96T5CfjVhzj9XuD gy8by76nYUtr8I2iOT7 Y6IxZMKuiriryXItqVm nFX1oZLJokydlVNYxpZ 7lWKWqJ3u6PfVkScU4M DvcW9TcedA8OJWpdWCs ZIyvBQQ8X86zz8J8CHU jQRKkLUP4iIB5pX2daW lnbjogbGVmdDsgdmVyd IhnLAyiEWpxI763DJYu eBzjGTYxbL7lQQZdfPR tpStoGJ4sZNNmmrpiTt yFJXjFPlqhHOxTS4WKF FNVRTwvdGQ+PHRkIHN0 sLfkEYjhJTJhyD1bYCN gJ8x4HsQxMmJ4OVhiK5 LjOMHlijdwTi89rC5sS pQrGhQ0SGdtD9IfqeC7 TUCtxOBeANwuIIL7C89 nz7B1ONDnXCCpYIQ9fL S2kL2kaVtirbqtfBAub DsgdmVydGljYWwtYWxp P997NDIrsOivCcIqFbI 7ElBlDUU1Z9MyCek9UA MrqNsmOC4ftGWcUVuuP t2biCifoJtbNJ8kTIJt swleJHZwmN9cNBEnzAX uyRjcJV8gHPRqohqua4 13NlExEES2SASobJEpO 4MtuS1mSsWdUBGpUHIi Y8UeuUHwOYulW530RXa vXgD8PZDabnSxH8QmEZ YfiTfhAhJ5d7L1If1kY SBZZWFyczwvdGQ+PHRk FIY1aWxcXUcxUDAxgD3 rDAWzK6v8HdSzLyG1RS jdK1FsVDSmunitRb09i A9wBvHxMgE8GRncI5Dk joX0EXWgoZAhEHavDSF 7U89ty7R1NMVrMWJeMW Q0iYC3mG4yzLzgovkap GVmdDsgdmVydGljYWwt HDtnY121RYDaoZeeRvL FTUFMRTwvdGQ+PHRkIH A7wTwoYYowVIAxvU8dB BPcZ1y5VhKnNoP6JCrn N8BlJNRtoamdPv81iM3 qDvIyNcN9CBiaI7Ghiz U3OWCvmSFaLOkrEFQ7V 87ek0B7ONEdIKHxAPN8 bBN1vS7dmHmhydxlgWO mdDsgdmVydGljYWwtYW dgI185QQQcqGxnAg1KP D55PA20M1PhBniddBKd bGU+PHRhYmxlIHdpZHR oPScxMDAlJyBzdHlsZT 2yTa6uJHGbUKPffXjuo UVgKqNnt2asEOBiFSiy NF3kfFykS1AjmUA7PUD pt0o4Yh39Y94jF0QdgJ A+NCMlbOD2jPR6qH4oT eMiOeQ2MQyxA368HhZf qSPhPofbn7cbg1ajzPb 9IjMwJSIgdmFsaWduPS R2g0JmIl60L02gYBeeC HRoPSIyMCUiIHZhbGln iz7pvO9uYk4+PGNvbCB 3eOA6xF8rZhQuEgE6JN slJ966KiOaeUTdYokdN 78dP8UwcRN+PHRyPjx0 MVRnzOoiZL7qjKEuISt mVl3qROG7PdQoOpFjNN ylK5AkJCCoferzzmqfg IU3SQQzGISzxF08Hs8l wStrKq5yMOJcAIH1RVC huDIgP2SusX2oJyHdYY RoLNReR1KklKLhEQqsE 904GVdcZmY8RAUmtgDa W0HuORDyaVfuZzD8e0J 8Ac1AbQitoHMdTX9zSs KnWYg1P8FuAxw4BWGqc MveEE5gxJBlPFsyMy3n hCmyfPjxSR4oTWKakzz dz557XpIcw4faGVTswG VfEGwvGXH2A30bh5K4J CKtFWTzMSP5bHT8eB4c bGlnbjogbGVmdDsgdmV caWmwMUqtFNvmP826PP HljMplNwFIRfm6H5PnQ ae1CEMslXbsUA8hdSTw HMimZx0ljYxlfRxoYO7 aIVEfoppha805XqPbb5 pmCKYusZNhHQchGHH6D 75tl8C0RNYxTHNjIPV9 vOX3nH5jiHfvisjljQO mdDsgdmVydGljYWwtYW oaZ576GYDysFzsJb6KI jt3D3EuPju6ODRcyGui YU9woIJjRKevTd5ciCu ucUjcMY5hZQZbdzudv7 24GdZdc8zoXEVwuFOsE OcqYYV4X45ev1H1YBRf JPKtFKZ1aCP2fS9flGi nbjogbGVmdDsgdmVydG wlJDstVIvmX678LLKvy DsnPlBheWVyOjwvdGQ+ EV61qy90Z3DoEaqdQnf 9LPWrFKS3hWO7xM4yTO DaDNeyn7S3xYQ9N8Wtq mThvf6if5bqIIYwNUoa Y29 (more content not included)... Normal [facility] ED Clinical Summaryon 2021 ED Clinical Summary [facility] ? Urgent Care [address] [place], [place] [id number] Clinical Summary PERSON INFORMATION Name: SENTHIL SCOTT Age: 21 Years Sex: FEMALE : 2000 MRN: Acct#: Visit Reason: UC - Headache; HEADACHE, NAUSEA Arrival: 02/07/2022 17:42:14 Discharge: 02/07/2022 19:03:00 LOS: 000 01:21 Check In: 02/07/2022 17:42:14 Checkout: 02/07/2022 19:03:00 Address: [address] [place] [id number] PCP: Liberty Pierre MD PROVIDER INFORMATION Provider Role Assigned Unassigned Cedric eHmphill ED PA 02/07/2022 17:46:36 Salena Ochoa FIELD CONSULTANT Nurse 02/07/2022 17:46:51 VITALS INFORMATION Vital Sign [...] Infection Follow-Up: With: Address: When: Liberty Pierre [facility] [facility], [address] [place] [id number] Business (1) Within 2 to 4 days [...] per current recommendations and guidelines from the [facility] Medical [facility]. -Push fluids to stay [...] else to drop your groceries off and scrap picker your medications. 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 Urgent Care [address] [place] [address] PATIENT DISCHARGE INSTRUCTIONS Patient Information Name: SENTHIL SCOTT Age: 21 Years Date of : 2000 Reason For Visit: UC - Headache; HEADACHE, NAUSEA Arrival Time: 02/07/2022 17:42:14 Primary Care Physician: Liberty Pierre MD Attending Physician: Cedric Hemphill Comment: Patient Education With: Address: When: Liberty Pierre [address] [facility] [place] [address] Business (1) Within 2 to 4 days [...] per current recommendations and guidelines from the [facility]. -Push fluids to stay hydrated. -Use [...] else to drop your groceries off and scrap picker your medications. I would recommend that [...] yourself. Get rest and stay hydrated. Take ommu-eiw-lxlbepk medicines, such as acetaminophen, to help you feel better. ? Stay in touch with your doctor. Call before you get medical care. Be sure to get care if (more content not included)... [facility] Influenza A&B Rapidon 2021 Influenza A Negative Normal [facility] Comment on above: Performed By: #### 1 [id number] #### [facility] (DEFAULT) [address] [place] [address] Influenza B Negative [facility] Comment on above: Performed By: #### 1 [id number] #### [facility] (DEFAULT) [address] [place] [address] Internal QC OK? Pass [facility] Comment on above: Performed By: #### 1 [id number] #### [facility] (DEFAULT) [address] [place] [address] Progress Note - Nurseon 01-11 Progress Note - Nurse Patient provided with fluids [Electronically Signed on: 02/07/2022 18:30 EDT] __ Salena Ochoa RN [Verified on: 02/07/2022 18:30 EDT] __ Salena Ochoa RN [facility] UA w Culture if Ind Standard on 02-07-2022 Breakpoint UA [facility] Comment on above: Performed By: #### 1 [id number] #### [facility] (DEFAULT) [address] [place] [address] Color (U) Yellow [facility] Comment on above: Performed By: #### 1 [id number] #### [facility] (DEFAULT) [address] [place] [address] Culture? Not Indicated Invalid Interpretation Code [facility] Comment on above: Result Comment: Resu lt created by rule [id number]_ADD_UA_[id number] Performed By: #### 1 [id number] #### [facility] (DEFAULT) [address] [place] [address] Glucose (U) [Mass/Vol] Negative [facility] Comment on above: Performed By: #### 1 [id number] #### [facility] (DEFAULT) [address] [place] [address] Ketones Ql (U) 40 Normal [facility] Comment on above: Performed By: #### 1 [id number] #### [facility] (DEFAULT) [address] [place] [address] Micro? Not Indicated Invalid Interpretation Code [facility] Comment on above: Result Comment: Resu lt created by rule GL_MAGR_ADD_UA_MICRO Performed By: #### 1 [id number] #### [facility] (DEFAULT) [address] [place] [address] UA Bilirubin SMALL Abnormal [facility] Comment on above: Performed By: #### 1 [id number] #### [facility] (DEFAULT) [address] [place] [address] UA Blood Negative Normal NEGATIVE [facility] Comment on above: Performed By: #### 1 [id number] #### [facility] (DEFAULT) [address] [place] [address] UA Clarity CLEAR Normal CLEAR [facility] Comment on above: Performed By: #### 1 [id number] #### [facility] (DEFAULT) [address] [place] [address] UA Leuk Est Negative Normal NEGATIVE [facility] Comment on above: Performed By: #### 1 [id number] #### [facility] (DEFAULT) [address] [place] [address] UA Nitrite Negative Normal NEGATIVE [facility] Comment on above: Performed By: #### 1 [id number] #### [facility] (DEFAULT) [address] [place] [address] UA pH 6.5 Normal 5-8 [facility] Comment on above: Performed By: #### 1 [id number] #### [facility] (DEFAULT) [address] [place] [address] UA Protein Negative Normal NEGATIVE [facility] Comment on above: Performed By: #### 1 [id number] #### [facility] (DEFAULT) [address] [place] [address] UA Spec Grav >=1.030 Normal 1.001-1.035 [facility] Comment on above: Performed By: #### 1 [id number] #### [facility] (DEFAULT) [address] [place] [address] UA Urobilinogen 1.0 mg/dL Normal 0.2-1.0 [facility] Comment on above: Performed By: #### 1 [id number] #### [facility] (DEFAULT) [address] [place] [address] Urine Source Clean Catch Normal [facility] Comment on above: Performed By: #### 1 [id number] #### [facility] (DEFAULT) [address] [place] [address] Urgent Care Note- Provideron 02-07-2022 Urgent Care [...] nose, decreased energy, fatigue, sore throat. 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 Only drank 1 glass of water today. Ate McDouble and Swedish fries at 5:30pm. + influenza exposure 4 days ago. ALL: None Meds: Midodrine 5mg TID. PMH: Neurocardiogenic syncope, leaky valve of heart Social: Called off work today from [employer]. Worked 02/04, 02/05, 02/06. Marijuana daily. Review [...] headache, dark urine, nausea. She had a alliance party last night and did drink alcohol. [...] was advised to have off work from [employer] today tomorrow and February 09. May return [...] 18:01 E (more content not included)... Normal [facility] 022 Urgent Care Record [facility] ? Urgent Care [address] [id number] PATIENT DISCHARGE INSTRUCTIONS Patient Information Name: SENTHIL SCOTT Age: 21 Years Date of : 2000 Reason For Visit: UC - Headache; HEADACHE, NAUSEA Arrival Time: 02/07/2022 17:42:14 Primary Care Physician: Liberty Pierre MD Attending Physician: Cedric Hemphill Comment: Visit Diagnosis: Diagnoses This Visit Aching headache (R51.9) Mild dehydration (E86.0) Tachycardia (R00.0) UC - Headache ([id number]) Viral URI with cough (J06.9) If you [...] legal documents With: Address: When: Liberty Pierre [address] [place] [address] Business (1) Within 2 to 4 days [...] per current recommendations and guidelines from the [facility]. -Push fluids to stay [...] else to drop your groceries off and scrap picker your medications. I would recommend that [...] and treatment you received today in the [facility] were for an urgent problem and are not intended as complete care. It is important for you to follow up with a doctor, nurse practitioner, or physician?s market research assistant for ongoing care. If your symptoms become worse or you do not improve as expected and you are unable to reach your usual health ca (more content not included)... Normal [facility] CHLAMYDIA/GONOCOCCUS EMELYN (SW AB/URINE/PAPon 12-11-2021 Chlamydia trachomatis, EMELYN Negative Normal Negative [facility] Comment on above: Performed By: #### C T/NGNA #### [facility] [address] [place] [address] Dr. Soraya Tavarez Neisseria gonorrhoeae, EMELYN Negative Normal Negative [facility] Comment on above: Performed By: #### C T/NGNA #### [facility] [address] [place] [address] Dr. Soraya Tavarez VAGINITIS/VAGINOSIS DNA PROB Jon 12-10-2021 Elvia species Negative Normal Negative [facility] Comment on above: Performed By: #### V AGINT #### [facility] [address] [place] [address] Dr. Soraya Tavarze Gardnerella vaginalis Negative Normal Negative [facility] Comment on above: Performed By: #### V AGINT #### [facility] [address] [place] [address] Dr. Soraya Tavarez Trichomonas vaginalis Negative Normal Negative [facility] Comment on above: Performed By: #### V AGINT #### [facility] [address] [place] [address] Dr. Soraya Tavarez US PELVIS TRANSVAGon 12-08- 022 US PELVIS TRANSVAG EXAMINATION: US PELVIS [...] by: CLARY LOYD Date: 2021-12-08 14:57 [facility] CORTISOL 11.0 mcg/dL Normal [facility] Comment on above: Result Comment: Refe rence Range: AM 6.0-23.0 mcg/dL PM 0.0-9.0 mcg/dL Performed By: #### 3 0209 #### [facility] [address] [place]GLOBULIN [place] [id number] Thyroglobulin Ab Qn [IU]/mL Normal 0.0-4.0 [facility] Comment on above: Result Comment: INTE RPRETIVE INFORMATION: Thyroglobulin Antibody A value of 4.0 IU/mL or less indicates a negative result for thyroglobulin antibodies. The Thyroglobulin Antibody assay is being performed using the [employer] Access DxI method. Performed By: [facility] [address] [place] [address] Ornamental Machine Operator: Kassy Pickens MD TPO ANTIBODY [id number] TPO ANTIBODY 0.3 IU/mL Normal 0.0-9.0 [facility] Comment on above: Result Comment: Perf ormed By: [facility] [address] [place] [address] Ornamental Machine Operator: Kassy Pickens MD TSH RECEPTOR AB [id number] TSH RECEPTOR AB <0.90 Normal <=1.[address] [facility] Comment on above: Result Comment: Perf ormed By: [facility] [address] [place] [address] Ornamental Machine Operator: Kassy Pickens MD Vital Signs Date Time Vital Sign Value Performing Clinician Facility 2023 09:32-0500 Body mass index (BMI) [Ratio] 24.2 kg/m2 Wesly Linette DO Work Phone: [facility] 2023 09:32-0500 Body weight 63.96 kg Wesly Linette DO Work Phone: [facility] 2023 09:32-0500 Diastolic blood pressure 70 mm[Hg] Wesly Linette DO Work Phone: [facility] 2023 09:32-0500 Systolic blood pressure 110 mm[Hg] Wesly Linette DO Work Phone: [facility] 10-04-2023 09:45-0500 Body height 162.56 cm Liberty Pierre Other [facility] Other 10-04-2023 09:45-0500 Body mass index (BMI) [Ratio] 23.51 kg/m2 Liberty Pierre Other [facility] Other 10-04-2023 09:45-0500 Body temperature 97.8 [degF] Liberty Pierre Other [facility] Other 10-04-2023 09:45-0500 Body weight 62.14 kg Liberty Pierre Other [facility] Other 10-04-2023 09:45-0500 Diastolic blood pressure 80 mm[Hg] Liberty Pierre Other [facility] Other 10-04-2023 09:45-0500 SaO2% (BldA) [Mass fraction] 98 % Liberty Pierre Other [facility] Other 10-04-2023 09:45-0500 Systolic blood pressure 108 mm[Hg] Liberty Pierre Other [facility] Other 09-18-2023 13:08-0500 Body height 162.6 cm Arlette Mustafa MD Work Phone: [employer] 09-18-2023 13:08-0500 Body mass index (BMI) [Ratio] 23.79 kg/m2 Arlette Mustafa MD Work Phone: [facility] 09-18-2023 13:08-0500 Body weight 62.87 kg Arlette Mustafa MD Work Phone: [facility] 09-18-2023 13:08-0500 Diastolic blood pressure 64 mm[Hg] Arlette Mustafa MD Work Phone: [facility] 09-18-2023 13:08-0500 Heart rate 89 /min Arlette Mustafa MD Work Phone: [employer] 09-18-2023 13:08-0500 Systolic blood pressure 109 mm[Hg] Arlette Mustafa MD Work Phone: [facility] 07-22-2023 10:10-0500 Body height 162.56 cm Tiesha Juliana Other [facility] Other 07-22-2023 10:10-0500 Body mass index (BMI) [Ratio] 20.94 kg/m2 Tiesha Juliana Other [facility] Other 07-22-2023 10:10-0500 Body temperature 98.1 [degF] Tiesha Juliana Other [facility] Other 07-22-2023 10:10-0500 Body weight 55.34 kg Tiesha Pittsmond Other [facility] Other 07-22-2023 10:10-0500 Respiratory rate 18 /min Tiesha Juliana Other [facility] Other 07-22-2023 10:10-0500 SaO2% (BldA) [Mass fraction] 98 % Tiesha Andrews Other [facility] Other 05-09-2023 14:30-0400 Body height 162.56 cm Liberty Pierre Other [facility] Other 05-09-2023 14:30-0400 Body mass index (BMI) [Ratio] 17.64 kg/m2 Liberty Pierre Other [facility] Other 05-09-2023 14:30-0400 Body weight 46.63 kg Liberty Pierre Other [facility] Other 05-09-2023 14:30-0400 Diastolic blood pressure 64 mm[Hg] Liberty Pierre Other [facility] Other 05-09-2023 14:30-0400 Systolic blood pressure 104 mm[Hg] Liberty Pierre Other [facility] Other 10-21-2022 12:30-0500 Body height 162.56 cm Liberty Pierre Other [facility] Other 10-21-2022 12:30-0500 Body mass index (BMI) [Ratio] 18.71 kg/m2 Liberty Pierre Other [facility] Other 10-21-2022 12:30-0500 Body weight 49.44 kg Liberty Pierre Other [facility] Other 10-21-2022 12:30-0500 Diastolic blood pressure 60 mm[Hg] Liberty Pierre Other [facility] Other 10-21-2022 12:30-0500 SaO2% (BldA) [Mass fraction] 97 % Liberty Pierre Other [facility] [employer] Other 10-21-2022 12:30-0500 Systolic blood pressure 108 mm[Hg] Liberty Pierre Other [facility] [employer] Other 10-17-2022 17:39-0500 Diastolic blood pressure 53 mm[Hg] MD Liberty Pierre Work Phone: [facility] 10-17-2022 17:39-0500 Heart rate 95 /min MD Liberty Pierre Work Phone: [facility] 10-17-2022 17:39-0500 Respiratory rate 16 /min MD Liberty Pierre Work Phone: [facility] 10-17-2022 17:39-0500 SaO2% (BldA) [Mass fraction] 98 % MD Liberty Pierre Work Phone: [facility] 10-17-2022 17:39-0500 Systolic blood pressure 102 mm[Hg] MD Liberty Pierre Work Phone: [facility] 10-17-2022 15:42-0500 Body height 162.56 cm MD Liberty Pierre Work Phone: [facility] 10-17-2022 15:42-0500 Body temperature 97.8 [degF] MD Liberty Pierre Work Phone: [facility] 10-17-2022 15:42-0500 Body weight 50.1 kg MD Liberty Pierre Work Phone: [facility] 05-31-2022 14:29-0400 Blood Pressure Location Sal DOWNS [facility] 05-31-2022 14:29-0400 Diastolic blood pressure 60 mm[Hg] Sal DOWNS [facility] 05-31-2022 14:29-0400 Heart rate 68 /min Sal DOWNS [facility] 05-31-2022 14:29-0400 Respiratory rate 16 /min Sal DOWNS [facility] 05-31-2022 14:29-0400 Systolic blood pressure 108 mm[Hg] Sal DOWNS [facility] Encounters Encounter Date Encounter Type Care Provider Facility Start: 09-02-2024 End: 09-02-2024 Bamboo flowsheet Wesly Linette DO Work Phone: [facility] Start: 09-02-2024 End: 09-02-2024 Bamboo flowsheet Wesly Linette DO Work Phone: [facility] Start: 08-29-2024 End: 08-29-2024 Telephone encounter Wesly Linette DO Work Phone: [facility] Start: 03-05-2024 End: 03-05-2024 ambulatory WESLY LINETTE Not Available Start: 02-12-2024 End: 02-12-2024 ambulatory STEPHEN DOMINIQUE Not Available Start: 12-11-2023 End: 12-11-2023 ambulatory STEPHEN DOMINIQUE Not Available Start: 11-27-2023 End: 11-27-2023 ambulatory WESLY LINETTE Not Available Start: 11-20-2023 End: 11-20-2023 ambulatory WESLY LINETTE Not Available Start: 11-13-2023 End: 11-13-2023 ambulatory WESLY LINETTE Not Available Start: 10-27-2023 End: 10-27-2023 ambulatory TANYA JUAN [facility] Start: 10-27-2023 End: 10-27-2023 Emergency department patient visit CONCHA YEBOAH DARCI [facility] Start: 2023 End: 2023 flow sheet Wesly Linette DO Work Phone: [facility] Comment on above: Third trimester preg mamadou Start: 2023 End: 2023 ambulatory WESLY LINETTE Not Available Start: 10-09-2023 End: 10-09-2023 ambulatory STEPHEN FOX Not Available Start: 10-04-2023 End: 10-04-2023 ambulatory Liberty Pierre Other [facility] Other Start: 10-04-2023 Office outpatient vi sit [address] [facility] Start: 09-25-2023 End: 09-25-2023 ambulatory WESLY SUE Not Available Start: 09-21-2023 End: 09-21-2023 ambulatory Liberty Pierre Other [facility] Other Start: 09-21-2023 Office outpatient vi sit [address] [facility] Start: 09-18-2023 End: 09-19-2023 ambulatory WESLY KABAO [facility] Start: 09-18-2023 End: 09-18-2023 Office outpatient visit 25 minutes Arlette Mustafa MD Work Phone: [facility] Comment on above: Heartburn during pre gnancy in third trimester (Primary Dx); Cardiovascular disease of mother in , antepartum, third trimester; Postural orthostatic tachycardia syndrome; cardiac echogenic focus, antepartum, single or unspecified fetus Start: 08-28-2023 End: 08-28-2023 ambulatory STEPHEN FOX Not Available Start: 07-27-2023 ambulatory MELINA [facility] Start: 07-24-2023 End: 07-24-2023 ambulatory STEPHEN FOX Not Available Start: 07-22-2023 End: 07-22-2023 ambulatory Tiesha Andrews Other [facility] Other Start: 07-22-2023 Office outpatient vi sit 15 minutes Tiesha Andrews [facility] [place] Start: 05-25-2023 End: 05-25-2023 ambulatory Liberty Pierre Other [facility] Other Start: 05-25-[address] [facility] Start: 05-09-2023 End: 05-09-2023 ambulatory Liberty Pierre Other [facility] Other Start: 05-09-2023 Office outpatient vi sit [address] [facility] Start: 11-02-2022 End: 11-03-[address] LIBERTY PIERRE Facility:[facility] Start: 10-21-2022 End: 10-21-2022 ambulatory Liberty Pierre Other [facility] Other Start: 10-21-2022 Office outpatient vi sit [address] [facility] Start: 10-17-2022 End: 10-17-2022 Emergency department patient visit Kaci Morales Facility:[facility] Start: 10-17-2022 End: 10-17-2022 Emergency department patient visit MD Liberty Pierre Work Phone: [facility] Work Phone: Start: 10-04-2022 End: 10-05-[address] CLARY LOYD Facility:[facility] Start: 08-16-2022 End: 08-17-[address] CLARY LOYD Facility:[facility] Start: 07-26-2022 End: 07-27-[address] CLARY LOYD Facility:[facility] Start: 07-19-2022 Well child visit Liberty Pierre Other [facility] Other Start: 07-12-2022 End: 07-13-[address] LIBERTY PIERRE Facility:[facility] Start: 05-31-2022 End: 06-01-2022 ambulatory Wesly SUE Facility: [facility] Start: 05-31-2022 End: 05-31-2022 Patient encounter procedure Sal DOWNS [facility] Start: 05-02-2022 ambulatory LIBERTY PIERRE PROVIDER Facility:[facility] Start: 12-08-2021 End: 03-30-[address] LIBERTY PIERRE Facility:[facility] Start: 12-08-2021 End: 12-09-[address] WESLY SUE . Facility:[facility] Procedures Date Procedure Procedure Detail Performing Clinician [...] Incision and drainag e of axilla Sal VICTORIA Plan of Treatment Date Care Activity Detail Author Start: 07-11-2026 Screening for malignant neoplasm of cervix Pap Smear [facility] Start: 09-18-2024 Adult BMI Screening Adult BMI Screen ing [facility] Start: 09-18-2024 Tobacco Screening Tobacco Screening [facility] Start: 09-02-2024 End: 09-02-2024 Patient encounter procedure [facility] Comment on above: Arrived Start: 12-06-2023 End: 12-06-2023 Patient encounter procedure 12/06/2023 10:30 AM EDT Office Visit [facility] [address] [place] [phone] Genoveva Bailon MD [address] [place] [address], [address] [place] [id number] [facility] Start: 11-13-2023 End: 11-13-2023 Patient encounter procedure 11/13/2023 1:40 PM EST Routine [facility] [address] [place] [address] Wesly Sue DO [address] [place], [place] [id number] [facility] Start: 10-16-2023 End: 10-16-2023 Telemedicine consultation with patient 10/16/2023 2:30 PM EST Telemedicine [facility] [address] [place] [address] Arlette Mustafa MD [address] [place] [address] [facility] Start: 09-18-2023 End: 09-18-2024 Echo complete W/O contrast Echo complete W/O contrast Echocardiography Routine Cardiovascular disease of mother in , antepartum, third trimester Postural orthostatic tachycardia syndrome cardiac echogenic focus, antepartum, single or unspecified fetus Heartburn during in third trimester Expected: 09/18/2023, Expires: 09/18/2024 [facility] Comment on above: Expected: 09/18/2023 , Expires: 09/18/2024 Start: 05-12-2023 Influenza vaccination Influenza Vacc ine [facility] Start: 10-17-2022 Bacteria identified in Urine by Culture [facility] Start: 2019 DTaP,Tdap and Td Vaccines (1 - Tdap) DTaP,Tdap and Td Vaccines (1 - Tdap) [facility] Start: 2012 Depression Screening Depression Scre ening [facility] End: 09-17-2024 ECG 12 lead ECG 12 lead ECG Routine Cardiovascular disease of mother in , antepartum, third trimester Postural orthostatic tachycardia syndrome cardiac echogenic focus, antepartum, single or unspecified fetus Heartburn during in third trimester 1 Occurrences starting 09/18/2023 until 09/17/2024 [facility] Work Phone: Comment on above: 1 Occurrences starti ng 09/18/2023 until 09/17/2024 Patient Education Head Injury in Adults [facility] Work Phone: Patient referral [facility] Work Phone: Immunizations Immunization Date Immunization Notes Care Provider Luisito spencer 04-09-2019 meningococcal oligosaccharide (groups A, C, Y and W-135) diphtheria toxoid conjugate vaccine (MCV4O) Liberty Pierre Other [facility] Other Payers Date Payer Category Payer Medicaid [id number] [facility] [id number]. [id number] 2023 Unknown [id number]. 1.13.693.2. 7.3.073079.315 2023 Medicaid [id number] 2.16.840.1.274123.19 2022 Self-pay [id number] 2000 Unknown [id number] 2.16.840.1.099602.3.579.2. 727 2000 Unknown [id number] 2.16.840.1.934832.3.579.2. 593 2000 Unknown [id number] 2.16.840.1.127951.3.579.2. 593 2000 Unknown [id number] 2.16.840.1.984573.3.579.2. 593 2000 Unknown [id number] 2.16.840.1.736727.3.579.2. 593 2000 Unknown [id number] 2.16.840.1.956641.3.579.2. 593 2000 Unknown [id number] 2.16.840.1.169245.3.579.2. 593 2000 Unknown [id number] 2.16.840.1.927037.3.579.2. 593 2000 Unknown [id number] 2.16.840.1.531494.3.579.2. 1286 2000 Unknown [id number] 2.16.840.1.341781.3.579.2. 1286 2000 Unknown [id number] 2.16.840.1.263110.3.579.2. 1286 2000 Unknown [id number] 2.16.840.1.250176.3.579.2. 1286 2000 Unknown [id number] 2.16.840.1.867546.3.579.2. 1286 2000 Unknown [id number] 2.16.840.1.578697.3.579.2. 1286 2000 Unknown [id number] 2.16.840.1.589095.3.579.2. 1259 2000 Unknown [id number] 2.16.840.1.861332.3.579.2. 1259 2000 Unknown [id number] 2.16.840.1.244626.3.579.2. 1259 2000 Unknown [id number] 2.16.840.1.357536.3.579.2. 1259 2000 Unknown [id number] 2.16.840.1.775844.3.579.2. 1259 2000 Unknown [id number] 2.16.840.1.645782.3.579.2. 1259 2000 Unknown [id number] 2.16.840.1.643649.3.579.2. 1259 2000 Unknown [id number] 2.16.840.1.645395.3.579.2. 1259 2000 Unknown [id number] 2.16.840.1.014530.3.579.2. 1259 2000 Unknown [id number] 2.16.840.1.781510.3.579.2. 1259 2000 Unknown [id number] 2.16.840.1.550231.3.579.2. 1259 1979 Unknown [id number] 2.16.840.1.371248.3.579.2. 727 1959 Unknown [id number] Unknown [id number] 2.16.840.1.513443.3.579.2. 531 Unknown [id number] Social History Date Type Detail Facility Start: 05-31-2022 End: 05-22-2023 Tobacco smoking status Never smoked tobacco (finding) [facility] Tobacco smoking status Never [facility] Start: 09-18-2023 End: 03-05-2024 Sex Assigned At Female [facility] Start: 10-17-2022 [facility] Start: 2000 Sex Assigned At Female [facility] Start: 05-22-2023 End: 06-16-2023 Tobacco use and exposure Smokeless tobacco non-user [facility] Start: 09-18-2023 End: 03-05-2024 Alcohol intake Lifetime non-drinker (finding) [facility] Start: 09-18-2023 End: 03-05-2024 History of Social function [facility] Start: 03-16-2023 [facility] Start: 2000 Sex Assigned At Not on file P [facility] Functional Status Date Assessment Result Facility 05-31-2022 Functional Status N/A [facility] 02-07-2022 to 08-29-2024 Telephone Encounter - Lizzie Brianna - 08/29/2024 2:08 PM ESTTelephone Encounter - Lizzie Brianna - 08/29/2024 2:08 PM Mathieu Michele KODY - 2023 9:30 AM EST Note Date & Type Note Facility 08-29-2024 Telephone encounter Note Form atting of this note might be different from the original. Pt called with concerns of pelvic pain since . She states she has been to the ER x 2. She then states she had an UTI that she thinks hasn't cleared up. Advised pt to follow up with PCP, she said she called 08/29/24 and they can't get her in till 09/02/24. She then asked about work excuse, advised we cannot give her a work note but she can contact the ER for note. Checked with PA and pt to keep appt w/ PCP on Monday. Called pt back and advised pt to keep appt w/PCP on Monday. She then states it is with Dr Sue. Pt is scheduled for yearly exam 09/02/24. [facility] 08-29-2024 Miscellaneous Notes Formattin g of this note might be different from the original. Pt called with concerns of pelvic pain since . She states she has been to the ER x 2. She then states she had an UTI that she thinks hasn't cleared up. Advised pt to follow up with PCP, she said she called 08/29/24 and they can't get her in till 09/02/24. She then asked about work excuse, advised we cannot give her a work note but she can contact the ER for note. Checked with PA and pt to keep appt w/ PCP on Monday. Called pt back and advised pt to keep appt w/PCP on Monday. She then states it is with Dr Sue. Pt is scheduled for yearly exam 09/02/24. documented in this encounter [facility] 2023 History of Presen t illness Narrative [...] nursing note reviewed. Exam conducted with a machine tool rebuilder present. Patient presents today for a routine [...] Wesly Sue DO documented in this encounter [facility] 10-04-2023 Evaluation note Encounter Date Diagnosis Assessment Notes Sep, Acute non-recurrent maxillary sinusitis (ICD-10 - J01.00) Finish antibiotics WIll notify her OB work note given. [facility] Other 01-11-2024 Evaluation note* Encounter Date Diagnosis Assessment Notes Treatment Notes Treatment Clinical Notes Sep, Viral URI (ICD-10 - J06.9) Ok to stop azithromycin as she likely has a viral infection. Recommend halls and robitussin for cough. Pt requests letter to stay out of hot kitchen at [facility]. Sep, Tachycardia (ICD-10 - R00.0) Advised her to stay hydrated. She doesn't know how or have a smart watch to track her pulse at home. Advised to come in for vitals, discuss w Dr. Sue next week. She will have her mom check her pulse. Noted history of NCS. [facility] Other 01-08-2024 History of Present illness Narrative* [...] was 32 minutes. 24 minutes were direct [id number] for counseling and coordination of care during visits itself. An additional 3 minutes or for same day preparation to see the patient. Another 6 minutes were needed were needed to prepare report and or to perform other duties to complete visit. Thank you for sending this patient. Arlette Mustafa MD Maternal Medicine Professor, [facility] [phone] Office [phone] Personal Cell Phone Office Note: Patient Active [...] had neurocardiogenic syncope. The patient saw a still operator helper that recommended EKG and echocardiogram. The problem list indicates a shortened RI interval. The patient is unaware of pre-excitation [...] wanted the patient to be seen by still operator helper. If this diagnosis is not want the [...] of affects and embryo affects. We reviewed [employer] database. Case reports in human have been [...] considered clinically significant by most. Most recent [facility] guidelines recommend cell free DNA screening [...] care primary [facility] provider. [facility] NoteSubjective Senthil Scott is a 22 y.o. 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 Social [...] No Known Allergies Medications Current Outpatient Medications: [id number] 29-1-400 mg combo pack,tablet and cap,, Take 1 tablet by mouth in the [...] and other tests EKG 07/17/23: NSR, short RI interval Assessment/Plan Diagnoses and all orders for [...] Ambulatory referral to Cardiac Electrophysiology; Future Shortened RI interval Pre-syncope - Will order an echocardiogram - she has known vasovagal syncope Previously under control with midodrine daily I discussed with Dr. Max, who is our expert on syncope and vasovagal syncope He has used midodrine in patients and believes it is safe He also felt that symptoms should gradually improve in the next few weeks 2. Short RI interval on EKG: Consider event monitor and EP evaluation if having palpit (more content not included)...[facility]11-[facility]-2023 Evaluation note* Encounter Date Diagnosis Assessment [...] Robitussin for the cough. Follow-up with your ELECTROLYTIC DE SCALER if no improvement in 2 to 3 days. Off work tomorrow and Monday, may return to work on Monday. Jul, Sore throat (ICD-10 - J02.9) [facility] Other 08-29-2023 Evaluation note* Encounter Date Diagnosis Assessment Notes Treatment Notes Treatment Clinical Notes Apr, Mild intermittent reactive airway disease without complication (ICD-10 - J45.20) Discussed her symptoms and agreed to HFA prn. Apr, Neurocardiogenic syncope (ICD-10 - R55) Midodrine is catagory C and she has been off of it for a few weeks. Will not refill and notify Dr. Sue. [facility] Other 02-10-2023 Evaluation note* Encounter Date Diagnosis Assessment Notes Treatment Notes Treatment Clinical Notes Oct, Neurocardiogenic syncope (ICD-10 - R55) Increased dose of med. Has been through workup with [facility]. Will refer to Neurology to r/o seizure component. Note given for work. [facility] Other 01-24-2023 NotePROCEDURE: XR TIB_FIB LT 2V HISTORY: Pain in lower limb ; persistent mid lower leg pain; follow-up stress reaction COMPARISON: XR tib-fib left 08/16/2022 FINDINGS: BONES:No fracture, dislocation, or periosteal reaction. SOFT TISSUES:No visible soft tissue swelling. EFFUSION:None visible. OTHER: Negative. IMPRESSION: 1. No suspicious bone abnormality. Electronically authenticated by: CLARY LOYD Date: 2022-10-04 15:34[facility]12-06-2022 NotePROCEDURE: XR TIB_FIB LT 2V, XR [...] authenticated by: CLARY LOYD Date: 2022-08-16 09:39[facility]12-06-2022 NotePROCEDURE: XR TIB_FIB LT 2V, XR [...] authenticated by: CLARY LOYD Date: 2022-08-16 09:39[facility]11-15-2022 NotePROCEDURE: XR ANKLE LT MIN 3 V HISTORY: Pain of left ankle joint ; follow-up ankle sprain COMPARISON: XR ankle left 07/12/2022 FINDINGS: BONES:No fracture, acute abnormality, or significant arthropathy. SOFT TISSUES:No visible soft tissue swelling. EFFUSION:None visible. OTHER: Negative. IMPRESSION: 1. No acute bone abnormality or appreciable degenerative changes. Electronically authenticated by: CLARY LOYD Date: 2022-07-26 15:21[facility]11-01-2022 NotePROCEDURE: XR ANKLE LT MIN 3 V COMPARISON: None. HISTORY: Injury of left ankle FINDINGS: BONES:No fracture, acute abnormality, or significant arthropathy. SOFT TISSUES:Negative. No visible soft tissue swelling. EFFUSION:None visible. OTHER: Negative. IMPRESSION: No acute disease. Electronically authenticated by: CHERRIE FLORES Date: 2022-07-12 13:06[facility]09-20-2022 NoteChief Complaint consultation for abdominal pain [...] Daily, # 30 cap(s), Refills(s) 3, Pharmacy: [id number], 163.8, cm, 05/31/22 14:35:00 EDT, Height/Length Dosing, 53.6, kg, 05/31/22 14:35:00 EDT, Weight Dosing 2. Marijuana use, continuous (F12.90: Cannabis use, unspecified, uncomplicated) see # 1 Ordered: omeprazole, 20 mg = 1 cap(s), Oral, Daily, # 30 cap(s), Refills(s) 3, Pharmacy: [id number], 163.8, cm, 05/31/22 14:35:00 EDT, Height/Length Dosing, 53.6, kg, 05/31/22 14:35:00 EDT, Weight Dosing 3. Anxiety (F41.9: Anxiety disorder, unspecified) see # 1 Ordered: omeprazole, 20 mg = 1 cap(s), Oral, Daily, # 30 cap(s), Refills(s) 3, Pharmacy: [facility], 163.8, cm, 05/31/22 14:35:00 EDT, Height/Length [...] refills Allergies Macrobid (Vomi (more content not included)...[facility]:Result Comment: Electronically Signed By: VICTORIA FRANK, Sal Cam\Date and Time Signed: 05/31/22 17:28 [id number] NotePatient Education Materials Follows:Disease COVID-19: What to [...] yourself. Get rest and stay hydrated. Take pbwy-fzv-[id number] medicines, such as acetaminophen, to help you [...] to your local emergency facility: Notify the wreath machine operator that you are seeking care [...] ? You can visit your state, [facility], local, and [facility] department's website to look for the latest [...] clean your hands with an alcohol-based hand managed care manager that contains at least 60% alcohol. Clean your hands often ? Wash your hands often with soap and water for at least 20 seconds. This is especially important after blowing your nose, coughing, or sneezing; going to the bathroom; and before eating (more content not included)...[facility] Evaluation + Plan note No data available for this section General Surgery [place] Evaluation noteNo assessment information available [facility] Work Phone: Evaluation noteNo InformationNort [employer] Other Evaluation note* Diagnosis Heartburn during in [...] ARM 2016 Hospitalization History SEE SURGICAL HX [facility] Other Hospital Discharge instructions No data available for this section General Surgery [facility] Discharge instructions Additional Instructions Push fluids Rest Avoid marijuana use Follow-up with your doctor call tomorrow for appointment Return if any problems persist or worsen including chest pain, shortness of breath, numbness, tingling, unilateral weakness or any other concern Take antibiotic as instructed until [facility] Work Phone: InstructionsNot on filedocumented in this encounter [facility] [employer] note No data available for this section General Surgery [place] Summary Purpose Family History No Family History Records FoundNo Family History Records FoundNo Family History Records FoundNo Family History Records FoundNo Family History Records FoundNo Family History Records FoundNo Family History Records FoundNo Family History Records FoundNo Family History Records Found Advance Directives Advance Directive Response Recorded Date/ Time Advance Directives No November 18, 020 6:47pm Chief Complaint and Reason for Visit Chief Complaint Passed out,weak Reason for Referral Specialty Diagnoses / Procedures Referred By William huerta Referred To Contact Diagnoses Cardiovascular disease of mother in , antepartum, third trimester Postural orthostatic tachycardia syndrome cardiac echogenic focus, antepartum, single or unspecified fetus Heartburn during in third trimester Procedures Echo complete W/O contrast Arlette Mustafa MD [address] [place] [address] Referral ID Status Reason Start Date Expiration Date V isits Requested Visits Authorized [id number] Pending Review 09/18/2023 09/17/2024 1 1 Specialty Diagnoses / Procedures Referred By William huerta Referred To Contact Diagnoses Cardiovascular disease of mother in , antepartum, third trimester Postural orthostatic tachycardia syndrome cardiac echogenic focus, antepartum, single or unspecified fetus Heartburn during in third trimester Procedures ECG 12 lead Arlette Mustafa MD [address] [place] [address] Referral ID Status Reason Start Date Expiration Date V isits Requested Visits Authorized [id number] Pending Review 09/18/2023 09/17/2024 1 1 Reason 11/23/22 Possible seizure - labs and CT at [facility]. Diagnosis 1 Neurocardiogenic syn cope (R55) Referral Organization formerly [facility] lucretia Referring Provider First Name Liberty Referring Provider Last Name Ignacio Referring Provider Specialty [facility] Referred Organization [facility] Referred Provider Avril Irving Referred Address [address] [place], [place],[address] Referred Provider Specialty Neurology Referral Priority Routine [...] and content) DATE CREATED AUTHOR 12/23/2020 [facility] DATE CREATED AUTHOR AUTHOR'S ORGANIZ ATION 02/10/2022 [facility] DATE CREATED AUTHOR AUTHOR'S ORGANIZ ATION 06/11/2022 [facility] DATE CREATED AUTHOR AUTHOR'S ORGANIZ ATION 10/25/2022 [facility] DATE CREATED AUTHOR AUTHOR'S ORGANIZ ATION 11/06/2022 [facility] DATE CREATED AUTHOR AUTHOR'S ORGANIZ ATION 08/17/2023 [facility] DATE CREATED AUTHOR AUTHOR'S ORGANIZ ATION 09/24/2023 [facility] DATE CREATED AUTHOR AUTHOR'S ORGANIZ ATION 10/29/2023 [facility] DATE CREATED AUTHOR AUTHOR'S ORGANIZ ATION 03/06/2024 [facility] EPIC Care Team (unrecognized sect ion and content) Team Status: Inactive Member Role Status Dates Liberty Pierre MD Primary Care Provider Active Kaci Morales APRN Emergency Provider Active Team Status: Active Member Role Status Dates Liberty Pierre MD Primary Care Provider Active Accountant Budget Relationship Specialty Start Date End Date Liberty Pierre MD [address] [place] [id number] PCP - General Family Medicine 05/04/23 Accountant Budget Relationship Specialty Start Date End Date Liberty Pierre MD [address] [place] [facility] [address] PCP - General Family Medicine 05/04/23 Accountant Budget Relationship Specialty Start Date End Date Liberty Pierre MD [address] [place] [facility] [address] PCP - General Family Medicine 05/04/23 Goals [...] BE BASED ON THE PRIMARY CLINICAL RECORDS. [facility] [employer] [facility]. provides no warranty or guarantee of the accuracy or completeness of information in this document.
[2024-09-10 10:13] LABS: Age Gdln ACOG Testing Note (.); IGP, rfx Aptima HPV ASCU Note (.)
== END 2024-09-02 20:48 | disposition home or self-care (01) ==
LOC: LAB 20:47
PROVIDERS: PCP Family Medicine; Visit Provider Obstetrics & Gynecology
DX: Z01.419 Encounter for gynecological examination (general) (routine) without abnormal findings (principal)
CPT/HCPCS: 88175

== ENCOUNTER 2024-10-02 13:45 | Outpatient (OUT) | payer OTHER, SELFPAY ==
--- NOTE | 2024-10-02 13:50 | XR_ITS ---
The [address] [address] Patient Name: SENTHIL SCOTT MRN: [id number] date: 2000 Sex: F Assigned Patient Location: [facility] Current Patient Location: Accession/Order Number: [id number] Exam Date: 10/02/2024 13:56 Report Date: 10/03/2024 05:57 At the request of: LIBERTY PIERRE Procedure: XR knee LT 4V PROCEDURE: XR knee LT 4V HISTORY: Injury Of Left Knee COMPARISON: None. FINDINGS: BONES:No fracture, acute abnormality, or significant arthropathy. SOFT TISSUES:No visible soft tissue swelling. EFFUSION:None visible. OTHER: Negative. XR/XR knee LT 4V IMPRESSION: 1. Normal examination. Electronically authenticated by: CLARY LOYD Date: 10/03/2024 05:57
--- NOTE | 2024-10-02 13:50 | XR_ITS ---
The [address] [address] Patient Name: SENTHIL SCOTT MRN: [id number] date: 2000 Sex: F Assigned Patient Location: [facility] Current Patient Location: [facility] Accession/Order Number: [id number] Exam Date: 10/02/2024 13:56 Report Date: 10/03/2024 05:58 At the request of: LIBERTY PIERRE Procedure: XR elbow LT min 3V PROCEDURE: XR elbow LT min 3V HISTORY: Left Elbow Pain COMPARISON: None. FINDINGS: BONES:No fracture, acute abnormality, or significant arthropathy. SOFT TISSUES:No visible soft tissue swelling. EFFUSION:None visible. OTHER: Negative. XR/XR elbow LT min 3V IMPRESSION: 1. Normal examination. Electronically authenticated by: CLARY LOYD Date: 10/03/2024 05:58
--- OUTSIDE RECORDS SUMMARY | 2024-10-02 14:09 | XMS_ITS | CCD ---
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 Protein, UA Negative Negative - 2000(20) ++++ mg/dL [facility] Spec Grav, UA 1.025 1 - 1.03 [facility] Urobilinogen, UA 0.2 0.2 - 12 mg/dL [facility] 36on 08-15-2023 36 Msg left on patients phone today regarding telehealth. 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 pyogenes Org specific cx Ql (Throat) Negative [employer] [facility] Other Quick Strep [facility] Other MRI LEG LT WO CONon 11-03-19 [...] [place] Date: 2022-11-02 23:11 Normal [facility] Amphetamine Screen Ql (U)Ord ered By: Kaci Morales on 10-17-2022 Amphetamines Ql (U) Negative Negative [facility] Automated erythrocytes count in urine sediment (number/area)Ordered By: Kaci Morales on 10-17-2022 RBC Auto (Urine sed) [#/Area] 20-49 [HPF] 0-4 [facility] Automated leukocytes count i n urine sediment (number/area)Ordered By: Kaci Morales on 10-17-2022 WBC Auto (Urine sed) [#/Area] 20-49 [HPF] 0-4 [facility] Automated urine hyaline cast s count (number/volume)Ordered By: Kaci Morales on 10-17-2022 Hyaline casts Auto (U) [#/Vol] None seen [LPF] 0-1 [facility] Automated urine sediment joe cium oxalate crystal count by microscopy (number/high powOrdered By: Kaci Morales on 10-17-2022 Calcium oxalate crystals LM.HPF (Urine sed) [#/Area] 3+ [HPF] [facility] Barbiturates [Presence] in U rineOrdered By: Kaci Morales on 10-17-2022 Barbiturates Ql (U) Negative Negative [facility] Basic Metabolic Panelon Anion gap [Moles/Vol] 13.2 mmol/L Normal 6.0-15.0 [facility] Comment on above: Performed By: #### H S TROP, BMP, CBC #### [facility] [address] Calcium [Mass/Vol] 9.5 mg/dL Normal 8.2-10.2 [facility] Comment on above: Performed By: #### H S TROP, BMP, CBC #### [facility] [address] Chloride [Moles/Vol] 103 mmol/L Normal 95-114 [facility] Comment on above: Performed By: #### H S TROP, BMP, CBC #### [facility] [address] CO2 [Moles/Vol] 25.5 mmol/L Normal 22.0-30.0 [facility] Comment on above: Performed By: #### H S TROP, BMP, CBC #### [facility] [address] [place] [address] [place] Creatinine [Mass/Vol] 0.80 mg/dL Normal 0.44-1.03 [facility] Comment on above: Performed By: #### H S TROP, BMP, CBC #### [facility] [address] [place] [address] [place] Creatinine Clr Calc Pharmacy 87.98 [facility] Comment on above: Result Comment: PERF ORMED BY: [place] [address] PATHOLOGIST ATTORNEY RECRUITER ZEB BASURTO M.D. Performed By: #### H S TROP, BMP, CBC #### [facility] [address] [place] [address] [place] Estimated GFR ( Adelita > 60 Normal [facility] Comment on above: Result Comment: GFR estimated reference range: According to KDOQI guidelines, <60 ml/min/1.73m2 is sufficient to diagnose a patient with chronic kidney disease. Performed By: #### H S TROP BMP, CBC #### [facility] [address] Estimated GFR (Non- Am > 60 Normal [facility] Comment on above: Performed By: #### H S TROP BMP, CBC #### [address] Glucose [Mass/Vol] 118 mg/dL High 70-100 [facility] Comment on above: Result Comment: [place] Glucose Reference Range is dependent on time and content of last meal. Glucose of more than 200 mg/dL in a nonstressed, ambulatory subject supports the diagnosis of Diabetes Mellitus. ADA recommended reference range Performed By: #### H S TROP BMP, CBC #### [address] Potassium [Moles/Vol] 3.7 mmol/L Normal 3.5-5.1 [facility] Comment on above: Performed By: #### H S TROP BMP, CBC #### [address] Sodium [Moles/Vol] 138 mmol/L Normal 136-146 [facility] Comment on above: Performed By: #### H S TROP BMP, CBC #### [address] Urea nitrogen [Mass/Vol] 10 mg/dL Normal 9-23 [facility] Comment on above: Performed By: #### H S TROP BMP, CBC #### [facility] [address] [place] [address] [place] Basophils Auto (Bld) [#/Vol] Ordered By: Kaci Morales on 10-17-2022 Basophils (Bld) [#/Vol] 0.0 10*3/uL 0.0-0.2 [facility] Basophils/100 WBC Auto (Bld) Ordered By: Kaci Morales on 10-17-2022 Basophils/100 WBC (Bld) 0.4 % . [facility] Benzodiazepines [Presence] i n UrineOrdered By: Kaci Morales on 10-17-2022 Benzodiazepines Ql (U) Negative Negative [facility] Bilirubin Test strip Ql (U)O rdered By: Kaci Morales on 10-17-2022 Bilirubin Ql (U) 1+ Negative [facility] CT head/brain wo conon 10-17 CT head/brain wo con [facility] [place] [address] [place] [address] CT Scan Report Signed Patient: Senthil Scott MR#: [id number] : 2000 Acct:[id number] Age/Sex: 21 / F ADM Date: 10/17/22 Loc: ER Room: Type: [facility] ER Attending Dr: Copies to: Kaci [...] Maricruz Vick M.D.10/17/2022 5:07 PM Dictation Location: [place] [address] Transcribed By: [facility] 10/17/221706 Dictated By: Maricruz Vick MD 10/17/221703 Signed By: 10/17/221706 Normal [facility] Cannabinoids [Presence] in U rine by Screen methodOrdered By: Kaci Morales on 10-17-2022 Cannabinoids Screen Ql (U) Positive Negative [facility] Comment on above: These are unconfirme [...] (Urine sed) None seen [LPF] None Seen [facility] Color Auto (U)Ordered By: Yuriy Morales on 10-17-2022 Color (U) Dark yellow Yellow [facility] Complete Blood Count Auto Di ffon 10-17-2022 Basophils (Bld) [#/Vol] 0.0 10*3/uL Normal 0.0-0.2 [facility] Comment on above: Result Comment: PERF ORMED BY: [place] [address] PATHOLOGIST ATTORNEY RECRUITER ZEB BASURTO M.D. Performed By: #### H S TROP, BMP, CBC #### [facility] [address] [place] [address] Basophils/100 WBC (Bld) 0.4 % Normal . [facility] Comment on above: Performed By: #### H S TROP, BMP, CBC #### [facility] [address] [place] [address] [place] Eosinophils (Bld) [#/Vol] 0.0 10*3/uL Normal 0.0-0.45 [facility] Comment on above: Performed By: #### H S TROP, BMP, CBC #### [facility] [address] [place] [address] [place] Eosinophils/100 WBC (Bld) 0.4 % Normal . [facility] Comment on above: Performed By: #### H S TROP, BMP, CBC #### [facility] [address] [place] [address] Erythrocyte distribution width (RBC) [Ratio] 13.0 % Normal 11.9-15.3 [facility] Comment on above: Performed By: #### H S TROP, BMP, CBC #### [address] Hematocrit (Bld) [Volume fraction] 37.2 % Normal 34.0-46.4 [facility] Comment on above: Performed By: #### H S TROP, BMP, CBC #### [address] Hemoglobin (Bld) [Mass/Vol] 12.4 g/dL Normal 11.8-15.4 [facility] Comment on above: Performed By: #### H S TROP BMP, CBC #### [address] Lymphocytes (Bld) [#/Vol] 1.1 10*3/uL Normal 1.00-4.8 [facility] Comment on above: Performed By: #### H S TROP, BMP, CBC #### [address] Lymphocytes/100 WBC (Bld) 14.5 % Normal . [facility] Comment on above: Performed By: #### H S TROP BMP, CBC #### [address] MCH (RBC) [Entitic mass] 29.4 pg Normal 24.7-34.3 [facility] Comment on above: Performed By: #### H S TROP, BMP, CBC #### [address] MCV (RBC) [Entitic vol] 88.6 fL Normal 80-100 [facility] Comment on above: Performed By: #### H S TROP, BMP, CBC #### [address] Mean Corpuscular HGB Conc 33.2 g/dL Normal 32.0-35.0 [facility] Comment on above: Performed By: #### H S TROP, BMP, CBC #### [place] [id number] [place] Monocytes (Bld) [#/Vol] 0.4 10*3/uL Normal 0.0-0.8 [facility] Comment on above: Performed By: #### H S TROP, BMP, CBC #### [facility] [address] [place] [address] [place] Monocytes/100 WBC (Bld) 14.49 % Normal 0.00-20.00 [facility] Comment on above: Performed By: #### H S TROP, BMP, CBC #### [facility] [address] [place] [address] [place] Monocytes/100 WBC (Bld) 5.2 % Normal . [facility] Comment on above: Performed By: #### H S TROP BMP, CBC #### [facility] [address] [place] [address] [place] Neutrophils (Bld) [#/Vol] 5.8 10*3/uL Normal 1.8-7.7 [facility] Comment on above: Performed By: #### H S TROP, BMP, CBC #### [facility] [address] [place] [address] [place] Neutrophils/100 WBC (Bld) 79.5 % Normal . [facility] Comment on above: Performed By: #### H S TROP BMP, CBC #### [facility] [address] [place] [address] [place] NRBC% 0.1 /100{WBC} Normal 0-0.5 [facility] Comment on above: Performed By: #### H S TROP, BMP, CBC #### [facility] [address] [place] [address] [place] Platelet mean volume (Bld) [Entitic vol] 7.9 fL Normal 6.3-10.7 [facility] Comment on above: Performed By: #### H S TROP, BMP, CBC #### [facility] [address] [place] [address] [place] Platelets (Bld) [#/Vol] 229 10*3/uL Normal 150-450 [facility] Comment on above: Performed By: #### H S TROP BMP, CBC #### [facility] [address] RBC (Bld) [#/Vol] 4.19 10*6/uL Normal 3.60-5.00 [facility] Comment on above: Performed By: #### H S TROP, BMP, CBC #### [facility] [address] WBC (Bld) [#/Vol] 7.3 10*3/uL Normal 3.8-11.6 [facility] Comment on above: Performed By: #### H S TROP, BMP, CBC #### [facility] [address] Creatinine and Glomerular fi ltration rate.predicted panel (S/P/Bld)Ordered By: Kaci Morales on 10-17-2022 Creatinine [Mass/Vol] 0.80 mg/dL 0.44-1.03 [facility] Dipstick and Microscopicon 0 10-17-2022 Appearance (U) Cloudy Critically abnormal Clear [facility] Comment on above: Order Comment: Name Collection Type:: Clean-Voided Midstream Performed By: #### A DDONUAPLUS, UHCG, CUU #### [address] Bacteria,Urine 1+ High None Seen [facility] Comment on above: Order Comment: Name Collection Type:: Clean-Voided Midstream Performed By: #### A DDONUAPLUS, UHCG, CUU #### [facility] [address] [place] [address] [place] Bilirubin,Urine 1+ High Negative [facility] Comment on above: Order Comment: Name Collection Type:: Clean-Voided Midstream Performed By: #### A DDONUAPLUS, UHCG, CUU #### [address] Calcium Oxalate Crystals,Urine 3+ Normal [facility] Comment on above: Order Comment: Name Collection Type:: Clean-Voided Midstream Performed By: #### A DDONUAPLUS, UHCG, CUU #### [facility] [address] [place] [address] [place] Color (U) Dark Yellow Critically abnormal Yellow [facility] Comment on above: Order Comment: Name Collection Type:: Clean-Voided Midstream Performed By: #### A DDONUAPLUS, UHCG, CUU #### [facility] [address] [place] [address] [place] Glucose Ql (U) Normal Normal Normal [facility] Comment on above: Order Comment: Name Collection Type:: Clean-Voided Midstream Performed By: #### A DDONUAPLUS, UHCG, CUU #### [facility] [address] [place] [address] [place] Hyaline Casts,Urine None Seen Normal 0-1 [facility] Comment on above: Order Comment: Name Collection Type:: Clean-Voided Midstream Performed By: #### A DDONUAPLUS, UHCG, CUU #### [facility] [address] [place] [address] [place] Ketones Ql (U) 1+ High Negative [facility] Comment on above: Order Comment: Name Collection Type:: Clean-Voided Midstream Performed By: #### A DDONUAPLUS, UHCG, CUU #### [facility] [address] [place] [address] [place] Leukocyte esterase Test strip Ql (U) 2+ High Negative [facility] Comment on above: Order Comment: Name Collection Type:: Clean-Voided Midstream Performed By: #### A DDONUAPLUS, UHCG, CUU #### [facility] [address] [place] [address] [place] Nitrite,Urine Negative Normal Negative [facility] Comment on above: Order Comment: Name Collection Type:: Clean-Voided Midstream Performed By: #### A DDONUAPLUS, UHCG, CUU #### [facility] [address] [place] [address] [place] Occult Blood,Urine 3+ High Negative [facility] Comment on above: Order Comment: Name Collection Type:: Clean-Voided Midstream Performed By: #### A DDONUAPLUS, UHCG, CUU #### [facility] [address] [place] [address] Othe Crystals,Urine None Seen Normal [facility] Comment on above: Order Comment: Name Collection Type:: Clean-Voided Midstream Performed By: #### A DDONUAPLUS, UHCG, CUU #### [address] Other Casts,Urine None Seen Normal None Seen [facility] Comment on above: Order Comment: Name Collection Type:: Clean-Voided Midstream Performed By: #### A DDONUAPLUS, UHCG, CUU #### [address] pH (U) 5.0 [pH] Normal 5.0-9.0 [facility] Comment on above: Order Comment: Name Collection Type:: Clean-Voided Midstream Performed By: #### A DDONUAPLUS, UHCG, CUU #### [address] Protein (U) [Mass/Vol] 100 mg/dL High Negative [facility] Comment on above: Order Comment: Name Collection Type:: Clean-Voided Midstream Performed By: #### A DDONUAPLUS, UHCG, CUU #### [facility] [address] [place] [address] RBC,Urine 20-49 High 0-4 [facility] Comment on above: Order Comment: Name Collection Type:: Clean-Voided Midstream Performed By: #### A DDONUAPLUS, UHCG, CUU #### [address] Specificy [place],Urine 1.035 High 1.001-1.030 [facility] Comment on above: Order Comment: Name Collection Type:: Clean-Voided Midstream Performed By: #### A DDONUAPLUS, UHCG, CUU #### [place] [address] [place] Squamous Epithelial Cell,Urine 5-9 High 0-2 [facility] Comment on above: Order Comment: Name Collection Type:: Clean-Voided Midstream Performed By: #### A DDONUAPLUS, UHCG, CUU #### [address] Urobilinogen,Urine Normal Normal Normal [facility] Comment on above: Order Comment: Name Collection Type:: Clean-Voided Midstream Performed By: #### A DDONUAPLUS, UHCG, CUU #### [address] WBC,Urine 20-49 High 0-4 [facility] Comment on above: Order Comment: Name Collection Type:: Clean-Voided Midstream Performed By: #### A DDONUAPLUS, UHCG, CUU #### [address] Drug Screen,Urineon 10-17-19 23 Amphetamine Screen,Urine Negative Normal Negative [facility] Comment on above: Performed By: #### U RDS #### [address] Barbiturate Screen,Urine Negative Normal Negative [facility] Comment on above: Performed By: #### U RDS #### [address] Benzodiazepines Screen,Urine Negative Normal Negative [facility] Comment on above: Performed By: #### U RDS #### [facility] [address] [place] [address] Cannabinoid Screen,Urine Positive High Negative [facility] Comment on above: Result Comment: Thes e are unconfirmed results and should not be used for legal purposes. Drug Cut-Off Concentration: AMPH 1000 ng/mL JERRY 200 ng/mL BOBBI 200 ng/mL COCM 300 ng/mL OP 300 ng/mL PCP 25 ng/mL THC 20 ng/mL PERFORMED BY: [place] [address] PATHOLOGIST ATTORNEY RECRUITER ZEB BASURTO M.D. Performed By: #### U RDS #### [address] [place] [address] [place] Cocaine Screen,Urine Negative Normal Negative [facility] Comment on above: Performed By: #### U RDS #### [facility] [address] Opiate Screen,Urine Negative Normal Negative [facility] Comment on above: Performed By: #### U RDS #### [facility] [address] Phencyclidine Screen,Urine Negative Normal Negative [facility] Comment on above: Performed By: #### U RDS #### [facility] [address] [place] [address] ECG 12 lead ECGon 10-17-2022 ECG 12 lead ECG [facility] [place] [address] [place] [address] Electrocardiograph Report Signed Patient: Senthil Scott MR#: [id number] : 2000 Acct:[id number] Age/Sex: 21 / F ADM Date: 10/17/22 Loc: ER Room: [facility] ER Attending Dr: Ordering Provider: Kaci Morales [...] Rightward axis Confirmed by Hai DUFFY DO ([id number]) on 10/17/2022 6:46:54 PM Referred By: Electronically Signed By:Hai DUFFY DO Transcribed By: MUS Signed By Hai Duffy DO 0 10/17/22 1846 Normal [facility] Eosinophils Auto (Bld) [#/Vo l]Ordered By: Kaci Morales on 10-17-2022 Eosinophils (Bld) [#/Vol] 0.0 10*3/uL 0.0-0.45 [facility] Eosinophils/100 WBC Auto (Bl d)Ordered By: Kaci Morales on 10-17-2022 Eosinophils/100 WBC (Bld) 0.4 % . [facility] Erythrocyte distribution wid th Auto (RBC) [Ratio]Ordered By: Kaci Morales on 10-17-2022 Erythrocyte distribution width (RBC) [Ratio] 13.0 % 11.9-15.3 [facility] Estimated glomerular filtrat ion rate (GFR) non- AmericanOrdered By: Kaci Morales on 10-17-2022 GFR/1.73 sq M.predicted among non-blacks MDRD (S/P/Bld) [Vol rate/Area] > 60 mL/Min [facility] HCG ( test) IA.rapi d Ql (U)Ordered By: Kaci Morales on 10-17-2022 HCG ( test) Ql (U) Negative [facility] HCG,Urineon 10-17-2022 Beta HCG ( test) Ql (U) Negative Normal [facility] Comment on above: Order Comment: Name Collection Type:: Clean-Voided Midstream Result Comment: PERF ORMED BY: [place] [address] PATHOLOGIST ATTORNEY RECRUITER ZEB BASURTO M.D. Performed By: #### A JESSU, [facility] #### [address] Hematocrit Auto (Bld) [Volum e fraction]Ordered By: Kaci Morales on 10-17-2022 Hematocrit (Bld) [Volume fraction] 37.2 % 34.0-46.4 [facility] Hemoglobin [Mass/volume] in BloodOrdered By: Kaci Morales on 10-17-2022 Hemoglobin (Bld) [Mass/Vol] 12.4 g/dL 11.8-15.4 [facility] Ketones Auto test strip (U) [Mass/Vol]Ordered By: Kaci Morales on 10-17-2022 Ketones (U) [Mass/Vol] 1+ Negative [facility] Laboratory - Drug toxicology Ordered By: Kaci Morales on 10-17-2022 Opiates Ql (U) Negative Negative [facility] Leukocytes [#/volume] correc marv for nucleated erythrocytes in Blood by Automated counOrdered By: Kaci Morales on 10-17-2022 WBC corrected for nucl RBC Auto (Bld) [#/Vol] 7.3 10*3/uL 3.8-11.6 [facility] Lymphocytes Auto (Bld) [#/Vo l]Ordered By: Kaci Morales on 10-17-2022 Lymphocytes (Bld) [#/Vol] 1.1 10*3/uL 1.00-4.8 [facility] Lymphocytes/100 WBC Auto (Bl d)Ordered By: Kaci Morales on 10-17-2022 Lymphocytes/100 WBC (Bld) 14.5 % . [facility] MCH Auto (RBC) [Entitic mass ]Ordered By: Kaci Morales on 10-17-2022 MCH (RBC) [Entitic mass] 29.4 pg 24.7-34.3 [facility] MCHC Auto (RBC) [Mass/Vol]Or dered By: Kaci Morales on 10-17-2022 MCHC (RBC) [Mass/Vol] 33.2 g/dL 32.0-35.0 [facility] MCV Auto (RBC) [Entitic vol] Ordered By: Kaci Morales on 10-17-2022 MCV (RBC) [Entitic vol] 88.6 fL 80-100 [facility] Monocyte distribution width [Entitic volume] in Blood by AutomatedOrdered By: Kaci Morales on 10-17-2022 Monocyte distribution width Auto (Bld) [Entitic vol] 14.49 % 0.00-20.00 [facility] Monocytes Auto (Bld) [#/Vol] Ordered By: Kaci Morales on 10-17-2022 Monocytes (Bld) [#/Vol] 0.4 10*3/uL 0.0-0.8 [facility] Monocytes/100 WBC Auto (Bld) Ordered By: Kaci Morales on 10-17-2022 Monocytes/100 WBC (Bld) 5.2 % . [facility] Neutrophils Auto (Bld) [#/Vo l]Ordered By: Kaci Morales on 10-17-2022 Neutrophils (Bld) [#/Vol] 5.8 10*3/uL 1.8-7.7 [facility] Neutrophils/100 WBC Auto (Bl d)Ordered By: Kaci Morales on 10-17-2022 Neutrophils/100 WBC (Bld) 79.5 % . [facility] Nitrite Test strip Ql (U)Ord ered By: Kaci Morales on 10-17-2022 Nitrite Ql (U) Negative Negative [facility] No Panel InformationOrdered By: Kaci Morales on 10-17-2022 Estimated GFR () > 60 mL/Min [facility] Comment on above: GFR estimated refere nce range: According to KDOQI guidelines, <60 ml/min/1.73m2 is sufficient to diagnose a patient with chronic kidney disease. Pharmacy Creatinine Clearance (Chem 87.98 [facility] Nucleated erythrocytes [Pres ence] in Blood by Automated countOrdered By: Kaci Morales on 10-17-2022 Nucleated RBC Auto Ql (Bld) 0.1 /100{WBC} 0-0.5 [facility] Phencyclidine Screen Ql (U)O rdered By: Kaci Morales on 10-17-2022 Phencyclidine Ql (U) Negative Negative [facility] Platelet mean volume Auto (B ld) [Entitic vol]Ordered By: Kaci Morales on 10-17-2022 Platelet mean volume (Bld) [Entitic vol] 7.9 fL 6.3-10.7 [facility] Platelets Auto (Bld) [#/Vol] Ordered By: Kaci Morales on 10-17-2022 Platelets (Bld) [#/Vol] 229 10*3/uL 150-450 [facility] Protein Auto test strip (U) [Mass/Vol]Ordered By: Kaci Morales on 10-17-2022 Protein (U) [Mass/Vol] 100 mg/dL Negative [facility] RBC Auto (Bld) [#/Vol]Ordere d By: Kaci Morales on 10-17-2022 RBC (Bld) [#/Vol] 4.19 10*6/uL 3.60-5.00 [facility] Serum or plasma anion gap de terminationOrdered By: Kaci Morales on 10-17-2022 Anion gap [Moles/Vol] 13.2 mmol/L 6.0-15.0 [facility] Serum or plasma calcium jesus urement (mass/volume)Ordered By: Kaci Morales on 10-17-2022 Calcium [Mass/Vol] 9.5 mg/dL 8.2-10.2 [facility] Serum or plasma chloride iam surement (moles/volume)Ordered By: Kaci Morales on 10-17-2022 Chloride [Moles/Vol] 103 mmol/L 95-114 [facility] Serum or plasma glucose jesus urement (mass/volume)Ordered By: Kaci Morales on 10-17-2022 Glucose [Mass/Vol] 118 mg/dL 70-100 [facility] Comment on above: ADA recommended refe rence rangeRandom Glucose Reference Range is dependent on time and content of last meal. Glucose of more than 200 mg/dL in a nonstressed, ambulatory subject supports the diagnosis of Diabetes Mellitus. Serum or plasma potassium me asurement (moles/volume)Ordered By: Kaci Morales on 10-17-2022 Potassium [Moles/Vol] 3.7 mmol/L 3.5-5.1 [facility] Serum or plasma sodium measu rement (moles/volume)Ordered By: Kaci Morales on 10-17-2022 Sodium [Moles/Vol] 138 mmol/L 136-146 [facility] Serum or plasma total carbon dioxide measurement (moles/volume)Ordered By: Kaci Morales on 10-17-2022 CO2 [Moles/Vol] 25.5 mmol/L 22.0-30.0 [facility] Serum or plasma urea nitroge n measurement (mass/volume)Ordered By: Kaci Morales on 10-17-2022 Urea nitrogen [Mass/Vol] 10 mg/dL 9-23 [facility] Specific gravity Auto test s trip (U) [Rel density]Ordered By: Kaci Morales on 10-17-2022 Specific gravity (U) [Rel density] 1.035 1.001-1.030 [facility] Squamous epithelial cells de tection in urine sediment by light microscopyOrdered By: Kaci Morales on 10-17-2022 Epithelial cells.squamous LM Ql (Urine sed) 5-9 [HPF] 0-2 [facility] Troponin I High Sensitivityo n 10-17-2022 Troponin I High Sensitivity < 3 Normal 0-15 [facility] Comment on above: Result Comment: PERF ORMED BY: [place] [address] PATHOLOGIST ATTORNEY RECRUITER ZEB BASURTO M.D. Performed By: #### H S TROP, BMP, CBC #### [facility] [address] [place] [address] Troponin I.cardiac [Mass/vol ume] in Serum or Plasma by High sensitivity methodOrdered By: Kaci Morales on 10-17-2022 Troponin I.cardiac High sensitivity method [Mass/Vol] < 3 pg/mL 0-15 [facility] Urine Cultureon 10-17-2022 Bacteria identified Cx Nom (U) 75,000 colonies/ml mixed bacterial skin contaminants 2 Days PERFORMED BY: [place] [address] PATHOLOGIST ATTORNEY RECRUITER ZEB BASURTO M.D. Normal [facility] Comment on above: Performed By: #### A DDONUAPLUS, UHCG, CUU #### [facility] [address] [place] [address] [place] Urine bacteria detection by automated methodOrdered By: Kaci Morales on 10-17-2022 Bacteria Auto Ql (U) 1+ None Seen [facility] Urine clarity by refractomet ry automatedOrdered By: Kaci Morales on 10-17-2022 Clarity Refractometry automated (U) Cloudy Clear [facility] Urine cocaine detectionOrder ed By: Kaci Morales on 10-17-2022 Cocaine Ql (U) Negative Negative [facility] Urine glucose measurement by automated test strip (mass/volume)Ordered By: Kaci Morales on 10-17-2022 Glucose Auto test strip (U) [Mass/Vol] Normal mg/dL Normal [facility] Urine hemoglobin detection b y automated test stripOrdered By: Kaci Morales on 10-17-2022 Hemoglobin Auto test strip Ql (U) 3+ Negative [facility] Urine leukocyte esterase det ection by automated test stripOrdered By: Kaci Morales on 10-17-2022 Leukocyte esterase Auto test strip Ql (U) 2+ Negative [facility] Urine sediment crystal ident ification by light microscopyOrdered By: Kaci Morales on 10-17-2022 Crystals LM Nom (Urine sed) None seen [HPF] [facility] Urobilinogen Auto test strip (U) [Mass/Vol]Ordered By: Kaci Morales on 10-17-2022 Urobilinogen (U) [Mass/Vol] Normal mg/dL Normal [facility] WBC Auto (Bld) [#/Vol]Ordere d By: Kaci Morales on 10-17-2022 WBC (Bld) [#/Vol] 7.3 10*3/uL 3.8-11.6 [facility] XR chest 1V portableon 10-17 XR chest 1V portable [facility] [place] [address] XRay Report Signed Patient: Senthil Scott MR#: [id number] 949 : 2000 Acct:[id number] Age/Sex: 21 / F ADM Date: 10/17/22 [...] Maricruz Vick M.D.10/17/2022 4:47 PM Dictation Location: [place] [address] Transcribed By: [facility] 10/17/221646 Dictated By: Maricruz Vick MD 10/17/221644 Signed By: 10/17/221646 [facility] pH Auto test strip (U)Ordere d By: Kaci Morales on 10-17-2022 pH (U) 5.0 [pH] 5.0-9.0 [facility] Provider Letter FTon 05-31 Provider Letter [facility] May 31, 2022 SENTHIL SCOTT S [address] [place] [phone] SENTHIL SCOTT S 2000 To Whom It May Concern, Please excuse above patient from work 05/28/2022. Dr. Sal Downs MD General Surgery [facility] Provider Letteron 05-17-2022 Provider Letter May 17, 2022 SENTHIL SCOTT S [address] [place] [phone] SENTHIL SCOTT S 2000 Dear Senthil, We have been trying to reach you with no success. It is important that you return our call regarding your referral from Dr. Ham upon receiving this letter. Also, at the time of your call, please provide us with your current information. Thank you for your prompt attention to this matter. Sincerely, General Surgery [phone] [facility] Physician Referralon 022 Physician Referral [phone] [id number] [facility] 2019 Novel Coronavirus (CoVI D-19), EMELYN LCon 02-10-2022 SARS-CoV-2 (COVID-19) RNA EMELYN+probe Ql (Unsp spec) Not detected Invalid Interpretation Code Not Detected [facility] Comment on above: Order Comment: [id number] ph# [phone] Result Comment: This nucleic acid amplification test was developed and its performance characteristics determined by [employer]. Nucleic acid amplification tests include RT- PCR [...] detected) result in this assay. Performed At: [address] [id number] Sanjuanita Hernández PhD Ph:[phone] Performed By: #### 6 [id number] #### [facility] [address] Coding Summaryon 02-10-2022 Coding Summary HTMLBase 64 RuprhjfqKJt4gOm+PGh lYWQ+WE8CBWHvR26duF OleE7XK5wRGW1LXIUSG FMHCN4SRR2jjPY5MNog M8IoyvRh FbnlnXHfEG16QXd6FZN 9mSsjEMcliT3ixUTvX4 f7PhUkEL20xO12MBslA NBnKfG7ShLlztrulRPk Y4afDjJuvGScHjl+PHR hYmxlIHdpZHRoPScxMD PbOfSyaRjfKP8aWe1mA GVyLWNvbGxhcHNlOiBj l0cxTJYmZKthTT2blAu iE0OpxWY2INGju1v8Om 48dHI+ZKEyTNS8vBlqR Ozfe089WuIua8mrZQG5 cMXeKCxhKBI8R31uf8X 9KXQhJGXiXJC2bDR6jW 7orIjernbyI8EomMBeS tE8JZX2aLHlhP6ycFen qoyimQ8dAjk+B96VEF7 LLEXAQD8QVhs7G1QiPh wvdHI+XM79VUUcOU31q JImgWXhj1mpnUa0CxEe PEDfYTE8jJueIPliq1C oMHIaH65xhWIla2X9QY HcoKdsyRZlEfLyaCF5p C9tBXtwfotzb4ioughq Nhyre2rdfo42jE18Y39 rGMowWUCgVSE9OUOlXC YrmBwssn3tdY6xEe5+I Zial3tnk9vgzCk5ClVb GVHijlDihPpxZYZ3k2S hUn33H3RrbApzl6WqAc n6xt60kHZdj5Y3cDJ5A TqrAAXizI5iKUjoIyD7 AGXkYoEsaT92gAFcTIa jGy0hkEzepPxxNF6lOW VvjnadCXBxiN7yXJXbs QTmtKfsQM2rETVgnrdf j877JtHmYLW0PLDrdND qZ4QrzY7fPoCtASRsZE RkZ5SfiRYgTOxzA908P QmsShN6VRLsltLjF9Bo QHYdiUvxViG9j8U2Oo9 Ur1UqecnkRHA6KAboUJ Y0GiQaBfBvYkU0E3LdY vn1NULhjIlbRT3yW4Ik RAZhibptibasnGP1UEN iNBQlcL41uHBcNVnuFd 0bz8L1i925SSIpHTYtc P91Lx5xvSgvPROyiTLR rY1figssd2ildnpjWkV dAYCnDZv2SIp1UFGpaO ptGfKfMUF4QyA2RZR6j VKveJ4sjQakudxqvK7f Oyc+W97fpL9dQNS4PGV 7cvqpFDXktvEhZB76UG 60G7QoVzpgyAEjdAG+P IYhugTtqKsuCJ1zChWd i5aml4OpYWnoR8TpIES eGQupAji1DLIhGBZ3iP V6hB1hENXjHWsln4X9x PC8N6WkugMuer4tf6dq HSEwRLzqH48vpVGjt2V 2GALfcXN8GEXhrNfaBk NueJ90Gnn+PGNvbGdyb 3PdGfrau3zde1eswJl3 IjMwJSIgdmFsaWduPSJ 0k8YwJw98Q19xJWokQA RoPSIxNSUiIHZhbGlnb n3dnE7tBy6+PGNvbCB3 pBE2tB4mGZHeVwE4LHv kM643PbMfvFGiJlwwx1 uem8rzgKn3ZxVoCUDrx oCnjDjhXYS8d8IeEj88 U02uGVkcGNAnGLGjCQW sSGSlxTljyg7clI7oMw 8+OJ6ba5bsqh50cZ46r HI+NQUwXJM5aEbqGYfm ULYiwV6rQKquGyA6GDQ oUgLebE94kQCgHEaqKw 6hkZxluMaaQX0kQUWpz clsm305HlOjy2xbAHVx jLCoWEyfSEY6I03fy3L 6PXKkDCFcBMD4mOB4lV 1hbGlnbjogbGVmdDsgd iBodCuwRGxfHEylK574 IHRvcDsnPlBhdGllbnQ pFrFlFOz6G2LbFsc7LA MicEmyXA9fdFAnIHtrW c3qaYlpfOzgVQ3yJMWo pjlfb166MdYbo9qqURT twCQqQUuhMMQ0T27nj1 B6UCKfGOBnMLF4xPQ8l C2jaKyloptdhBDbnNng wrNogQtrIRhjBWdzO88 6IHRvcDsnPkJpcnRoIE LkxYW0EW69WL03dLAtx 2R6eWE4S0SgUZVvlvvp ulrazFS1MDEwBSLazV1 5Cy3vtDblKg0qORDaZZ W6UEEtqZWoK8KqpA6uQ cMcFETqGYFcV7SpkZIn AUtvE170YJldZiB8THI pygXaM6FcZFXflAfdOa M9k4H9Pm1DM3F5RO47Y A71gVPgr4N1eOV4O0Bk KRGidrlhghtqcQP3MOU eNHOahZ82Hw7usXdjDt 5uVQXwEYP7ACEccTRqF 7RjfP4xLsZjNQIcJPWk S4VytJPmLRrzW749KDl hUeX7LELypjBcZ9CvXG QvzEpbApU2c8G3Dp2RC Aq1IN26KV83dTHjx2C8 rXC6M9UgMKDvfntwopa seLJ6MQSzUCAjpF28Xc 9geUqsNa7rXGOsXIT0Y KDaoTDlG9BzsP5fNiNc HXLhTLNiG3MyxGApDWg eP993HSwcSpH5FPRdmn WqG8FxUWVemCndAyO0i 2B8An1GAQOeXJ30WJN1 hJW4IA68EE20E2RxNdb vdGFibGU+PHRhYmxlIH dpZHRoPScxMDAlJyBzd JlfMI0bZb7nZPTjRMOd oEomjEMeDpWrb6fnGPB lCUuvET6mxRcgD5JnyC T7SOGww7a5Qy88A02kA 3JvdXA+XVQyyTI8eMA5 yE5nZiBiRvU4ICsyR97 3KtCyoKYkMsbko0lkf6 bnkHp9UuX2PIWmpaUtf VqrBJQ7g4MyZq82T32n IHdpZHRoPSIxNSUiIHZ xvZzugj9hpY4vTx1+PG XtlCD0dKF2hR6kGhVsY lC8QQdeE162OaHbyGWc Tdsxi0gkw0pjqBz1RyR qRVEiorYjrAhwMIR7i1 GeEd52T4SwpZsvd2BdU cd4on52oEQbp1P3aHD5 T2QkOOCxncripPIolBs zRF5lRHVbsftuJXHngR 5tOOLlD4a6YyBnYfM7A LdzK4HbalP8TMZywHPb HHksODN5Q20gu1G5FLP eCTZnMQU3rUA7xX6eoH lnbjogbGVmdDsgdmVyd TleVEnlEOdcO377DJOp tUhkPYKivD3yOZKxxZI ipJztAR2gODVcchxkZw eIRYmTEggwTAbAE9SLP FNVRTwvdGQ+PHRkIHN0 dRhxLAilAVGosX9rTJZ yZ6p7YpNsAbV6QCvdA9 ShQWWartkrPu22vM8fI wRdPqK2SLfkI8ThpgF6 XFOhkBGkZIkuGPQ1L06 jb0P9EDAcLPHnEUP0iW O6uG9ruNlbcticlTSsw DsgdmVydGljYWwtYWxp N562ZCCbtXoyOlVlQrP 9OgHbKQM5K1AxJus6QI IveHuaQB7qiZNlEYwqX g4wnLrmvNjzEB8mUPNg wvrmDNPnbK5eLSEniCQ hdBodJR4nMJLczatzv1 04UfYuHTW5YTVjcCMeR 0OaeS0dTrIzKUAjDGVx O3PzvHXxWNcxJ290QPi hKrE3XMTcmjKiG0WeDW BsfAxlKfU6l8Q9Vi5iP SBZZWFyczwvdGQ+PHRk QPQ0uGyxGNbfGNOqwE8 fEFJkX2a6OyCtBoA5TR kpH4NqDEFpmgutKc96h N9hWfFjLwH4MGupI2Ac irI4UZGjsQSnUFhlVUZ 1A81zl1M7ZVWhIXVvIC R9hIZ9cQ6gnRmsnntjf GVmdDsgdmVydGljYWwt DDfqR978CZShjPzzYhJ FTUFMRTwvdGQ+PHRkIH O2sBmjOHzpYMWgpW7sF ERzZ4z3UyJiBoB1PXee Q2CtBSVhtlkfBn15oA7 mTcAjGnG3GBltQ3Wnkg Q4WIYoxBCxZGkgHYO0T 95ai7T1JKGoAGAhGKY1 nOC3zK2hgNyeolmbxFF mdDsgdmVydGljYWwtYW ghD433REMerQucEl8ZT G91ZJ24Y2TfPtkihXMx bGU+PHRhYmxlIHdpZHR oPScxMDAlJyBzdHlsZT 6sRt3qCXGnHUBoiVaok JLcPlJyv7zfWAXhZSin SF5dqEyyB6IgrJI1MZP mb6l5Jf94C03bY5QhjO A+CZFkvDO0cAF6qZ3pM gKjGeU7DVrfH856VxBx wSGkSicjy2pnp6qpdSv 9IjMwJSIgdmFsaWduPS F9g1WkSj59S03uUCqnZ HRoPSIyMCUiIHZhbGln jv3frO0uDj3+PGNvbCB 0dFP0dN9zGuZsNsX0FJ drS817KxLbcAJdYoygA 07sC3HzpOW+PHRyPjx0 TCWmlNxqWE6inWRyBYo bLa6wMCS3DgBzOtOwYZ giV5QyFJBqzrjjlcdai NR7WMBbWKAirJ89Sn6m zBzgSl1rGUDuJAF6ZCT atHHwF3SrvZ1dNzHiUJ GsMXVbL8HbyAUpPPgoM 143EFnjDyC9MREnqrKh U7YkPIIknCccXaZ3d2V 5Pp3VfZecqSWoCE2hDf VbFSq3H0AeLio2SKJvt KzgPY3jwMGvXNwjRs7t rYmbnFakUW3iZUWbajv ht985JvMsm0liXOEkgW ZgWMliLMH2O55vr2O7G GCzJZAkAOC0gOB9bN8v bGlnbjogbGVmdDsgdmV ygCinCKwhGDrkR037IE JkcWjkFxAZTcy9U3VqR kf4UZJveBrnLG8rpQTl OEycTi0muUchwUqaDH7 mFPNtmefxm526RpRst0 wnOSAoaSLfZIklPTU3Y 37ns8Y9KLYoFTLzLNA7 dUF4fQ5alLozjwhpzQS mdDsgdmVydGljYWwtYW odS187VVXecPraMu8ZZ zt5F0XbSdx5FDHenEjm WR8reCKlWMrzDz6exUl neLkoBQ0qMNHmuarcd1 63ToLlp1rbDMWozZGbZ CwsLGD1Z33wd2S4YOEw AISlOSE6nVR5sV6qkYb nbjogbGVmdDsgdmVydG isHVgnZQofY711OFAjg DsnPlBheWVyOjwvdGQ+ YE29qe23U6LxMdfyPrn 2GVIhKTT2aVW4xI8gCV WjPMwpm0T0gHQ2F6Zml kWetz1kl1bnTBOeNVit Y29 (more content not included)... Normal [facility] ED Clinical Summaryon 2021 ED Clinical Summary [facility] ? Urgent Care [address] [place] [address] Clinical Summary PERSON INFORMATION Name: SENTHIL SCOTT Age: 21 Years Sex: FEMALE : 2000 MRN: Acct#: Visit Reason: UC - Headache; HEADACHE, NAUSEA Arrival: 02/07/2022 17:42:14 Discharge: 02/07/2022 19:03:00 LOS: 000 01:21 Check In: 02/07/2022 17:42:14 Checkout: 02/07/2022 19:03:00 Address: [address] [place] [address] [address] [facility] [address] PCP: Liberty Pierre MD PROVIDER INFORMATION Provider Role Assigned Unassigned Cedric Hemphill ED PA 02/07/2022 17:46:36 Salena Ochoa CUSTOMER ASSISTANCE REPRESENTATIVE Nurse 02/07/2022 17:46:51 VITALS INFORMATION Vital Sign [...] What to Do If You Are Sick- FOR[facility] NAMED [facility] (11/25/2020); Viral Respiratory Infection Follow-Up: With: Address: When: Liberty Pierre [address] [place] [address] [place] [id number] [facility] (1) Within 2 to 4 days Comments: [...] per current recommendations and guidelines from the State Medical Board of [place]. -Push fluids to stay hydrated. -Use Tylenol [...] else to drop your groceries off and pick and shovel man your medications. I would recommend that person [...] URI with cough Patient Understands: Yes - Patient/family/cardiac care unit nurse verbalizes understanding of instructions given Comment: Normal [facility] ED Patient Summaryon 022 ED Patient Summary [facility] ? Urgent Care [address] [place] [address] PATIENT DISCHARGE INSTRUCTIONS Patient Information Name: SENTHIL SCOTT Age: 21 Years Date of : 2000 Reason For Visit: UC - Headache; HEADACHE, NAUSEA Arrival Time: 02/07/2022 17:42:14 Primary Care Physician: Liberty Pierre MD Attending Physician: Cedric Hemphill Comment: Patient Education With: Address: When: Liberty Pierre [address] [place] [address], [place] [address] Business (1) Within 2 to [...] per current recommendations and guidelines from the State Medical Board [facility]. -Push fluids to stay hydrated. -Use [...] else to drop your groceries off and pick and shovel man your medications. I would recommend that person [...] yourself. Get rest and stay hydrated. Take mdkh-cte-dojgolt medicines, such as acetaminophen, to help you feel better. ? Stay in touch with your doctor. Call before you get medical care. Be sure to get care if (more content not included)... Normal [facility] Influenza A&B Rapidon 2021 Influenza A Negative Normal Negative [facility] Comment on above: Performed By: #### 1 [id number] #### [facility] (DEFAULT) [address] [place] [address] Influenza B Negative Normal Negative [facility] Comment on above: Performed By: #### 1 [id number] #### [facility] (DEFAULT) [address] [place] [address] Internal QC OK? Pass Normal [facility] Comment on above: Performed By: #### 1 [id number] #### [facility] (DEFAULT) [address] [place] [address] Progress Note - Nurseon 01-11 Progress Note - Nurse Patient provided with fluids [Electronically Signed on: 02/07/2022 18:30 EDT] __ Salena Ochoa RN [Verified on: 02/07/2022 18:30 EDT] __ Don Salena RN Normal [facility] UA w Culture if Ind Standard on 02-07-2022 [facility]point [facility] Comment on above: Performed By: #### 1 [id number] #### [facility] (DEFAULT) [address] [place] [address] Color (U) Yellow Normal [facility] Comment on above: Performed By: #### 1 [id number] #### [facility] (DEFAULT) [address] [place] [address] Culture? Not Indicated Invalid Interpretation Code [facility] Comment on above: Result Comment: Resu lt created by rule GL_MAGR_ADD_UA_CULT1 Performed By: #### 1 [id number] #### [facility] (DEFAULT) [address] [place] [address] Glucose (U) [Mass/Vol] Negative [facility] Comment on above: Performed By: #### 1 [id number] #### [facility] (DEFAULT) [address] [place] [address] Ketones Ql (U) 40 [facility] Comment on above: Performed By: #### 1 [id number] #### [facility] (DEFAULT) [address] [place] [address] Micro? Not Indicated Invalid Interpretation Code [facility] Comment on above: Result Comment: Resu lt created by rule GL_MAGR_ADD_UA_MICRO Performed By: #### 1 [id number] #### [facility] (DEFAULT) [address] [place] [address] UA Bilirubin SMALL Abnormal [facility] Comment on above: Performed By: #### 1 [id number] #### [facility] (DEFAULT) [address] [place] [address] UA Blood Negative Normal NEGATIVE [facility] Comment on above: Performed By: #### 1 [id number] #### [facility] (DEFAULT) [address] [place] [address] UA Clarity CLEAR Normal CLEAR [facility] Comment on above: Performed By: #### 1 [id number] #### [facility] (DEFAULT) [address] [place] [address] UA Leuk Est Negative Normal NEGATIVE [facility] Comment on above: Performed By: #### 1 [id number] #### [facility] (DEFAULT) [address] [place] [address] UA Nitrite Negative Normal NEGATIVE [facility] Comment on above: Performed By: #### 1 [id number] #### [facility] (DEFAULT) [address] [place] [address] UA pH 6.5 Normal 5-8 [facility] Comment on above: Performed By: #### 1 [id number] #### [facility] (DEFAULT) [address] [place] [address] UA Protein Negative Normal [facility] Comment on above: Performed By: #### 1 [id number] #### [facility] (DEFAULT) [address] [place] [address] UA Spec Grav >=1.030 Normal 1.001-1.035 [facility] Comment on above: Performed By: #### 1 [id number] #### [facility] (DEFAULT) [address] [place] [address] UA Urobilinogen 1.0 mg/dL Normal 0.2-1.0 [facility] Comment on above: Performed By: #### 1 [id number] #### [facility] (DEFAULT) [address] [place] [address] Urine Source Clean Catch Normal [facility] Comment on above: Performed By: #### 1 [id number] #### [facility] (DEFAULT) [address] [place] [address] Urgent Care Note- Provideron 02-07-2022 Urgent Care [...] called off. 7 days of frontal headache 01/18, clear runny nose, decreased energy, fatigue, sore throat. Hosted republican last night and drank 1 shot and 1 beer. Only drank 1 glass of water today. Ate McDouble and Armenian fries at 5:30pm. + influenza exposure 4 days ago. ALL: None Meds: Midodrine 5mg TID. PMH: Neurocardiogenic syncope, leaky valve of heart Social: Called off work today from [employer]. Worked 02/04, 02/05, 02/06. Marijuana daily. 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 May return [...] 18:01 E (more content not included)... Normal [facility] Urgent Care [place] 022 Urgent Care Record [facility] ? Urgent Care [address] [place] [address] PATIENT DISCHARGE INSTRUCTIONS Patient Information Name: SENTHIL SCOTT Age: 21 Years Date of : 2000 Reason For Visit: UC - Headache; HEADACHE, NAUSEA Arrival Time: 02/07/2022 17:42:14 Primary Care Physician: Liberty Pierre MD Attending Physician: Cedric Hemphill Comment: Visit Diagnosis: Diagnoses This Visit Aching headache (R51.9) Mild dehydration (E86.0) Tachycardia (R00.0) UC - Headache ([id number]) Viral URI with cough (J06.9) If you [...] legal documents With: Address: When: Liberty Pierre [address] [place] [address], [facility] [place] [address] Business (1) Within 2 to 4 days [...] guidelines from the [facility] Medical Board [facility]. -Push fluids to stay hydrated. -Use [...] else to drop your groceries off and pick and shovel man your medications. I would recommend that person [...] and treatment you received today in the [facility] were for an urgent problem and are not intended as complete care. It is important for you to follow up with a doctor, nurse practitioner, or physician?s management assistant for ongoing care. If your symptoms become worse or you do not improve as expected and you are unable to reach your usual health ca (more content not included)... Normal [facility] CHLAMYDIA/GONOCOCCUS EMELYN (SW AB/URINE/PAPon 12-11-2021 Chlamydia trachomatis, EMELYN Negative Normal Negative [facility] Comment on above: Performed By: #### C T/NGNA #### [facility] [address] [place] [address] [address] Soraya Tavarez Neisseria gonorrhoeae, EMELYN Negative Normal Negative [facility] Comment on above: Performed By: #### C T/NGNA #### [facility] [address] [place] [address] [address] Soraya Tavarez VAGINITIS/VAGINOSIS DNA PROB Jon 12-10-2021 Elvia species Negative Normal Negative [facility] Comment on above: Performed By: #### V AGINT #### [facility] [address] [address] [address] Soraya Tavarez Gardnerella vaginalis Negative Normal Negative [facility] Comment on above: Performed By: #### V AGINT #### [facility] [address] [place], [place] [address] Dr. Soraya Tavarez Trichomonas vaginalis Negative Normal Negative [facility] Comment on above: Performed By: #### V AGINT #### [facility] [address] [place], [place] [address] Dr. Soraya Tavarez US PELVIS TRANSVAGon 022 [...] CLARY LOYD Date: 2021-12-08 14:57 Normal [facility] CORTISOLon 10-22-2020 CORTISOL 11.0 mcg/dL Normal [facility] Comment on above: Result Comment: Refe rence Range: AM 6.0-23.0 mcg/dL PM 0.0-9.0 mcg/dL Performed By: #### 3 0209 #### [facility] [address] THYROGLOBULIN [place] [address]mg Thyroglobulin Ab Qn [IU]/mL Normal 0.0-4.0 [facility] Comment on above: Result Comment: INTE RPRETIVE INFORMATION: Thyroglobulin Antibody A value of 4.0 IU/mL or less indicates a negative result for thyroglobulin antibodies. The Thyroglobulin Antibody assay is being performed using the [employer] Access DxI method. Performed By: [facility] [address] [place] [id number] 3D Specialist: Kassy Pickens MD TPO ANTIBODY [id number] TPO ANTIBODY 0.3 IU/mL Normal 0.0-9.0 [facility] Comment on above: Result Comment: Perf ormed By: [facility] [address] [place] [address] 3D Specialist: Kassy Pickens MD TSH RECEPTOR AB [id number] TSH RECEPTOR AB <0.90 Normal <=1.75 [facility] Comment on above: Result Comment: Perf ormed By: [facility] [address] [place] [address] 3D Specialist: Kassy Pickens MD Vital Signs Date Time Vital Sign Value Performing Clinician Facility 10-01-2024 13:43-0500 Body height 162.56 cm [facility] 10-01-2024 13:43-0500 Body mass index (BMI) [Ratio] 18 kg/m2 [facility] 10-01-2024 13:43-0500 Body weight 47.62 kg [facility] 10-01-2024 13:43-0500 Diastolic blood pressure 69 mm[Hg] [facility] 10-01-2024 13:43-0500 Heart rate 105 /min [facility] 10-01-2024 13:43-0500 Systolic blood pressure 99 mm[Hg] [facility] 09-02-2024 15:25-0500 Body mass index (BMI) [Ratio] 15.62 kg/m2 Wesly Linette DO Work Phone: [facility] 09-02-2024 15:25-0500 Body weight 41.28 kg Wesly Linette DO Work Phone: [facility] 09-02-2024 15:25-0500 Diastolic blood pressure 60 mm[Hg] Wesly Linette DO Work Phone: [facility] 09-02-2024 15:25-0500 Systolic blood pressure 100 mm[Hg] Wesly Linette DO Work Phone: [facility] 08-21-2024 10:45-0500 Body height 162.56 cm [facility] 08-21-2024 10:45-0500 Body mass index (BMI) [Ratio] 18 kg/m2 [facility] 08-21-2024 10:45-0500 Body temperature 98 [degF] [facility] 08-21-2024 10:45-0500 Body weight 47.68 kg [facility] 08-21-2024 10:45-0500 Diastolic blood pressure 64 mm[Hg] [facility] 08-21-2024 10:45-0500 Heart rate 88 /min [facility] [facility]24 10:45-0500 SaO2% (BldA) [Mass fraction] 100 % [facility] 08-21-2024 10:45-0500 Systolic blood pressure 116 mm[Hg] [facility] 2023 09:32-0500 Body mass index (BMI) [Ratio] 24.2 kg/m2 [employer] Work Phone: [facility] 2023 09:32-0500 Body weight 63.96 kg Wesly Linette DO Work Phone: [facility] 2023 09:32-0500 Diastolic blood pressure 70 mm[Hg] Wesly Linette DO Work Phone: [facility] 2023 09:32-0500 Systolic blood pressure 110 mm[Hg] Wesly Linette DO Work Phone: [facility] 10-04-2023 09:45-0500 Body height 162.56 cm Liberty Pierre Other [employer] [facility] [employer] Other 10-04-2023 09:45-0500 Body mass index (BMI) [Ratio] 23.51 kg/m2 Liberty Pierre Other [employer] Other 10-04-2023 09:45-0500 Body temperature 97.8 [degF] Liberty Pierre Other [employer] [facility] [employer] Other 10-04-2023 09:45-0500 Body weight 62.14 kg Liberty Pierre Other [employer] Other 10-04-2023 09:45-0500 Diastolic blood pressure 80 mm[Hg] Liberty Pierre Other [employer] Other 10-04-2023 09:45-0500 SaO2% (BldA) [Mass fraction] 98 % Liberty Pierre Other [employer] Other 10-04-2023 09:45-0500 Systolic blood pressure 108 mm[Hg] Liberty Pierre Other [employer] Other 09-18-2023 13:08-0500 Body height 162.6 cm Arlette Mustafa MD Work Phone: [employer] [facility] 09-18-2023 13:08-0500 Body mass index (BMI) [Ratio] 23.79 kg/m2 Arlette Mustafa MD Work Phone: [employer] [facility] 09-18-2023 13:08-0500 Body weight 62.87 kg Arlette Mustafa MD Work Phone: [employer] [facility] 09-18-2023 13:08-0500 Diastolic blood pressure 64 mm[Hg] Arlette Mustafa MD Work Phone: [employer] [facility] 09-18-2023 13:08-0500 Heart rate 89 /min Arlette Mustafa MD Work Phone: [employer] [facility] 09-18-2023 13:08-0500 Systolic blood pressure 109 mm[Hg] Arlette Mustafa MD Work Phone: [employer] [facility] 07-22-2023 10:10-0500 Body height 162.56 cm Tiesha Andrews Other [employer] Other 07-22-2023 10:10-0500 Body mass index (BMI) [Ratio] 20.94 kg/m2 Tiesha Andrews Other [employer] Other 07-22-2023 10:10-0500 Body temperature 98.1 [degF] Tiesha Andrews Other [employer] Other 07-22-2023 10:10-0500 Body weight 55.34 kg Tiesha Andrews Other [employer] Other 07-22-2023 10:10-0500 Respiratory rate 18 /min Tiesha Andrews Other [employer] Other 07-22-2023 10:10-0500 SaO2% (BldA) [Mass fraction] 98 % Tiesha Andrews Other [employer] Other 05-09-2023 14:30-0400 Body height 162.56 cm Liberty Pierre Other [employer] Other 05-09-2023 14:30-0400 Body mass index (BMI) [Ratio] 17.64 kg/m2 Liberty Pierre Other [employer] Other 05-09-2023 14:30-0400 Body weight 46.63 kg Liberty Pierre Other [employer] Other 05-09-2023 14:30-0400 Diastolic blood pressure 64 mm[Hg] Liberty Pierre Other [employer] Other 05-09-2023 14:30-0400 Systolic blood pressure 104 mm[Hg] Liberty Pierre Other [employer] Other 10-21-2022 12:30-0500 Body height 162.56 cm Liberty Pierre Other [employer] Other 10-21-2022 12:30-0500 Body mass index (BMI) [Ratio] 18.71 kg/m2 Liberty Pierre Other [employer] Other 10-21-2022 12:30-0500 Body weight 49.44 kg Liberty Pierre Other [employer] Other 10-21-2022 12:30-0500 Diastolic blood pressure 60 mm[Hg] Liberty Pierre Other [employer] Other 10-21-2022 12:30-0500 SaO2% (BldA) [Mass fraction] 97 % Liberty Pierre Other [employer] Other 10-21-2022 12:30-0500 Systolic blood pressure 108 mm[Hg] Liberty Pierre Other [facility] [employer] Other 10-17-2022 17:39-0500 Diastolic blood pressure 53 mm[Hg] MD Liberty Pierre Work Phone: [facility] 10-17-2022 17:39-0500 Heart rate 95 /min MD Liberty Pierre Work Phone: [facility] 10-17-2022 17:39-0500 Respiratory rate 16 /min MD Liberty Pierre Work Phone: [facility] 10-17-2022 17:39-0500 SaO2% (BldA) [Mass fraction] 98 % MD Liberty Pierre Work Phone: [facility] 10-17-2022 17:39-0500 Systolic blood pressure 102 mm[Hg] MD Liberty Pierre Work Phone: [facility] 10-17-2022 15:42-0500 Body height 162.56 cm MD Liberty Pierre Work Phone: [facility] 10-17-2022 15:42-0500 Body temperature 97.8 [degF] MD Liberty Pierre Work Phone: [facility] 10-17-2022 15:42-0500 Body weight 50.1 kg MD Liberty Pierre Work Phone: [facility] 05-31-2022 14:29-0400 Blood Pressure Location Sal STEINBERGL [facility] [place] 05-31-2022 14:29-0400 Diastolic blood pressure 60 mm[Hg] Sal NILL [facility] [place] 05-31-2022 14:29-0400 Heart rate 68 /min Sal NILL [facility] [place] 05-31-2022 14:29-0400 Respiratory rate 16 /min Sal NILL [facility] [place] 05-31-2022 14:29-0400 Systolic blood pressure 108 mm[Hg] Sal NILL [facility] [place] Encounters Encounter Date Encounter Type Care Provider Facility Start: 10-01-2024 End: 10-01-2024 ambulatory [facility] Work Phone: Start: 10-01-2024 End: 10-01-2024 Patient encounter procedure [facility] Work Phone: Start: 09-02-2024 Non-patient / Non-visit [facility] Work Phone: Start: 09-02-2024 End: 09-02-2024 Patient encounter procedure Wesly Linette DO Work Phone: [facility] Start: 09-02-2024 End: 09-02-2024 Periodic preventive med est patient 18-39 yrs Wesly Linette DO Work Phone: [facility] Comment on above: Well woman exam with routine gynecological exam; Urinary tract infection with hematuria, site unspecified Start: 09-02-2024 End: 09-02-2024 ambulatory WESLY LINETTE Not Available Start: 09-02-2024 End: 09-02-2024 Bamboo flowsheet Wesly Linette DO Work Phone: [facility] Start: 09-02-2024 End: 09-10-2024 Bamboo flowsheet Wesly Linette DO Work Phone: [facility] Start: 09-02-2024 End: 09-10-2024 Clinisync Result Encounter Wesly Linette DO Work Phone: [facility] Unsolicited Start: 08-29-2024 End: 08-29-2024 Telephone encounter Wesly Linette DO Work Phone: [facility] Start: 08-29-2024 Non-patient / Non-visit [facility] Work Phone: Start: 08-28-2024 End: 08-28-2024 Patient encounter procedure [facility] Work Phone: Start: 08-21-2024 End: 08-21-2024 Patient encounter procedure [facility] Work Phone: Start: 08-13-2024 Non-patient / Non-visit [facility] Work Phone: Start: 03-05-2024 End: 03-05-2024 ambulatory WESLY LINETTE Not Available Start: 02-12-2024 End: 02-12-2024 ambulatory STEPHEN DOMINIQUE Not Available Start: 12-11-2023 End: 12-11-2023 ambulatory STEPHEN DOMINIQUE Not Available Start: 11-27-2023 End: 11-27-2023 ambulatory WESLY LINETTE Not Available Start: 11-20-2023 End: 11-20-2023 ambulatory WESLY LINETTE Not Available Start: 11-13-2023 End: 11-13-2023 ambulatory WESLY LINETTE Not Available Start: 10-27-2023 End: 10-27-2023 [facility] Start: 10-27-2023 End: 10-27-2023 Emergency department patient visit CONCHA BEJARANO [facility] Start: 2023 End: 2023 flow sheet Wesly Sue DO Work Phone: [facility] Comment on above: Third trimester preg mamadou Start: 2023 End: 2023 ambulatory WESLY SUE Not Available Start: 10-09-2023 End: 10-09-2023 ambulatory STEPHEN FOX Not Available Start: 10-04-2023 End: 10-04-2023 ambulatory Liberty Pierre Other [employer] Other Start: 10-04-2023 Office outpatient vi sit 15 minutes Liberty Pierre [facility] Start: 09-25-2023 End: 09-25-2023 ambulatory WESLY LINETTE Not Available Start: 09-21-2023 End: 09-21-2023 ambulatory Liberty Pierre Other [facility] Other Start: 09-21-2023 Office outpatient vi sit 15 minutes Liberty Pierre [facility] Start: 09-18-2023 End: 09-19-2023 ambulatory WESLY SUE [facility] Start: 09-18-2023 End: 09-18-2023 Office outpatient visit 25 minutes Arlette Mustafa MD Work Phone: [facility] at [facility] Comment on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 Pierre MD Primary Care Provider Active 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 Start Date End Date Liberty Pierre MD [address] [place] [phone] PCP - General Family Medicine 05/04/23 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 Start Date End Date Liberty Pierre MD [address] [facility] [facility] [place] [phone] PCP - General Family Medicine 05/04/23 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 Start Date End Date Liberty Pierre MD [address] [facility] [place] [phone] PCP - General Family Medicine 05/04/23 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 Start Date End Date Liberty Pierre MD [address] [facility] [place] [phone] PCP - [facility] Medicine 05/04/23 Team Status: Active Member Role Status Dates Liberty Pierre MD Primary Care Provider Active Start: August 13, 2024 Zahida Pisano DO Attending Provider Active Sta rt: August 13, 2024 Team Status: Inactive Member Role Status Dates Liberty Pierre MD Primary Care Provider Active Start: August 21, 2024 End: August 21, 2024 Zahraa Ortiz APRN COSMETICS MACHINE OPERATOR-C Attending Provider Active Start: August End: August 21, 2024 Team Status: Inactive Member Role Status Dates Liberty Pierre MD Primary Care Provide r, Attending Provider Active Start: August 28, 2024 End: August 28, 2024 Team Status: Active Member Role Status Dates Liberty Pierre MD Primary Care Provider Active Start: August 29, 2024 Mary Grace Graves MD Attending Provider Active Sta rt: August 29, 2024 Team Status: Active Member Role Status Dates Liberty Pierre MD Primary Care Provider Active Start: September 02, 2024 Ariadna Naylor CMA Attending Provider Active Start: September 02, 2024 Team Status: Inactive Member Role Status Dates Liberty Pierre MD Primary Care Provide r, Attending Provider Active Start: October 01, 2024 End: October 01, 2024 Goals (unrecognized section and content) Goals may [...] BE BASED ON THE PRIMARY CLINICAL RECORDS. [facility] [employer] [facility]. provides no warranty or guarantee of the accuracy or completeness of information in this document.
== END 2024-10-02 13:46 | disposition home or self-care (01) ==
LOC: RAD 13:46
PROVIDERS: PCP Family Medicine; Visit Provider Family Medicine
DX: S89.92XA Unspecified injury of left lower leg, initial encounter (principal); M25.522 Pain in left elbow
CPT/HCPCS: 73080; 73564

== ENCOUNTER 2024-11-28 09:23 | Outpatient (OUT) | payer OTHER, SELFPAY ==
--- NOTE | 2024-11-28 09:31 | XR_ITS ---
The [address] [address] Patient Name: SENTHIL SCOTT MRN: [id number] date: 2000 Sex: F Assigned Patient Location: [facility] Current Patient Location: [facility] Accession/Order Number: [id number] Exam Date: 11/28/2024 11:42 Report Date: 11/28/2024 11:42 At the request of: LIBERTY PIERRE MD Procedure: XR shoulder LT min 2V LEFT SHOULDER - - 3 views CLINICAL HISTORY: Left shoulder pain for one week. COMPARISON: None FINDINGS: Joint spaces appear maintained. No acute bony process. XR/XR shoulder LT min 2V IMPRESSION: No acute bony process. Impression dictated by: Mitchell Sloan Jr., D.OWilbur11/28/2024 11:42 AM Dictation Location: [place] [address] Electronically authenticated by: [id number] Y Date: 11/28/2024 11:42
--- NOTE | 2024-11-28 09:31 | XR_ITS ---
The [place] [id number] Patient Name: SENTHIL SCOTT MRN: [id number] date: 2000 Sex: F Assigned Patient Location: [facility] Current Patient Location: [facility] Accession/Order Number: [id number] Exam Date: 11/28/2024 11:41 Report Date: 11/28/2024 11:41 At the request of: LIBERTY PIERRE MD Procedure: XR wrist LT 2V LEFT WRIST - 2 views CLINICAL HISTORY: Left wrist pain radiating up and down arm for one week. COMPARISON: None FINDINGS: No focal soft tissue abnormality or acute bony process. Joint spaces appear maintained. No bony erosions. XR/XR wrist LT 2V IMPRESSION: NO ACUTE BONY PROCESS. Impression dictated by: Keira Wong Jr.OWilbur11/28/2024 11:41 AM Dictation Location: [place] [address] Electronically authenticated by: [id number] Y Date: 11/28/2024 11:41
--- OUTSIDE RECORDS SUMMARY | 2024-11-28 09:43 | XMS_ITS | CCD ---
Author Organization [facility] Care Team Providers Care Cream Dumper Name Role Phone LIBERTY PIERRE Primary Care Physician [phone] IGNACIO PROVIDERLIBERTY Referring Unavailab Sal Cazares Attending Unavailable Wesly SUE Referring Unavailable Sal DOWNS Attending Unavailable MD Liberty Peirre Primary Care Provider CRISTIN Morales Emergency Provider Kaci Morales Attending Unavailable Kaci Morales Admitting Unavailable Liberty Pierre Primary Care Unavailable IGNACIO, DR LIBERTY Ye Primary Care Unavailable GLADYS DWYER Attending Unavailable YULIYA, GLADYS Consulting Unavailable YULIYA, GLADYS Admitting Unavailable CEHRRIE ROOT Consulting Unavailable RACH, DR CLARY Hdez [...] Unavailable LINETTE ., DR CALZADA Admitting Unavailable ILNETTE ., DR CALZADA Attending Unavailable PIERRE, DR LIBERTY Ye Primary Care Unavailable LINETTE ., DR CALZADA Admitting Unavailable LINETTE ., DR CALZADA Consulting Unavailable ZIEBER, DR CLARY Hdez Consulting Unavailable IGNACIO, DR LIBERTY Ye Consulting Unavailable Liberty Pierre Unavailable Tiesha Andrews Unavailable MELINA HAMM Attending Unavailable ARLETTE MUSTAFA Attending Unavailable LINETTE, WESLY R Referring Unavailable LINETTE, WESLY R Referring Unavailable Liberty Pierre MD Primary Care Provider TANYA JUAN Admitting Unavailable TANYA JUAN Attending Unavailable CONCHA BEJARANO Attending UnavailCONCHA Henderson Referring Unavailabl e LINETTE, WESLY Attending Unavailable STEPHEN FOX Attending Unavailable LINETTE, WESLY Attending Unavailable LINETTE, WESLY Attending Unavailable LINETTE, WESLY Attending Unavailable LINETTE, WESLY Attending Unavailable STEPHEN FOX Attending Unavailable DOMINIQUE, STEPHEN Attending Unavailable LINETTE, WESLY Attending Unavailable LINETTE, WESLY Attending Unavailable Unavailable Primary Care Provider Unavailsally e Allergies Allergy Classification Reported Allergen(s) Allergy Type Date of Onset Reaction(s) Facility (8 sources) cefdinir; Translations: [cefdinir] Drug Allergy Vomiting (disorder) General [facility] (8 sources) NITROFURANTOIN, MACROCRYSTALS / Nitrofurantoin, Monohydrate; Translations: [nitrofurantoin] Drug Allergy Vomiting (disorder) [facility] (1 source) Penicillins Drug allergy (disorder) 11-01-19 22 [facility] Repository (5 sources) patient allergy list reviewed by nurse or physicia Propensity to adverse reactions 04-09-20 19 Comment:Done [employer] Other (5 sources) Allergies Reconciled Propensity to adverse reactions 07-26-20 21 Unknown [employer] Other (7 sources) cefdinir Drug Allergy 07-11-20 [...] 1 each famotidine 20 mg oral tablet (4 sources) Histamine-2 Receptor Antagonist Start: 08-08-2023 End: 09-18-2023 take 1 tablet by mouth in the morning famotidine (Pepcid) 20 MG tablet Take 20 mg by mouth in the morning and 20 mg in the evening. 0 08/08/2023 Active hydrOXYzine hydrochloride 10 mg oral tablet (5 sources) Antihistamine Start: 08-08-2023 take 1 tablet [...] omeprazole 20 mg delayed release oral capsule (5 sources) Proton Pump Inhibitor Start: 09-18-2023 take 1 capsule by mouth in the morning omeprazole (PriLOSEC) [address] capsule Take 20 mg by mouth in the morning. 0 09/18/2023 Active Start: 05-31-2022 take 1 capsule by mo ut once daily omeprazole 20 mg Cap-DR 20 mg = 1 cap(s), Oral, Daily, # 30 cap(s), Refills(s) 3, Pharmacy: [id number], 163.8, cm, 05/31/22 14:35:00 EDT, Height/Length Dosing, 53.6, kg, 05/31/22 14:35:00 EDT, Weight Dosing Start Date: 05/31/22 Status: Ordered ondansetron 4 mg disintegrating oral tablet (7 sources) Serotonin-3 Receptor Antagonist Start: 09-19-2023 take [...] 19/iron ps,heme/folic/dha ( MV & MIN ORAL) (3 sources) PNV 19/iron ps,heme/folic/dha ( MV & MIN [...] morning. 90 capsule 3 09/12/2023 09/11/2024 Active Zbwbho-RzLmn-AiOsr-FA-[place] (HI 400 ec) -200 & 400 MG (DR) misc (2 sources) take 1 tablet by mouth in the morning Kbspwd-QxCky-ErBby-FA-C A-[place] (HI 400 ec) -200 & 400 MG (DR) [...] Drug Class(es) Dates Sig (Normalized) Sig (Original) [id number] 200 actuat albuterol 0.09 mg/actuat metered dose [...] Not-Taking/PRN midodrine hydrochloride 5 mg oral tablet (17 sources) alpha-Adrenergic Agonist Start: 05-30-2022 midod rine 2.5 mg oral tablet as directed, Refills(s) 0 Start Date: 05/30/22 Status: Ordered Start: 10-14-2020 End: 07-17-2024 take 1 tablet by mouth once daily Midodrine 5 mg tablet Discontinued 5 MG PO Daily March 08, 2024 10:01am July 17, 2024 9:23am take 1 tablet by braden th every twelve hours Midodrine HCl 5 [...] disorder, 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 Cardiac dysrhythmias (3 sources) Postural orthostatic tachycardia syndrome ; Translations: [...] disease (1 source) Atherosclerotic heart disease of [place] coronary artery without angina pectoris; Translations: [Atherosclerotic heart disease of [place] coronary artery without angina pectoris] Onset: 4 [...] pressure Onset: 4 Episodic Other complications of (1 source) Other [...] Other Problems Problem Classification Problem Date Documented Date Episodic/Chronic Cardiac dysrhythmias (6 sources) Tachycardia; Translations: [Tachycardia, unspecified] Onset: 12-27-2018 Episodic Mycoses (5 sources) Tinea corporis; Translations: [Tinea corporis] Onset: 07-09-2018 Episodic Other complications of ; puerperium affecting management of mother (3 sources) heart echogenicity on obstetric ultrasound scan; Translations: [ cardiac echogenic focus, antepartum, single or unspecified fetus] Onset: 09-18-2023 09-18-2023 Episodic Other complications of (3 sources) Disorder of cardiovascular system; Translations: [Diseases of the circulatory system complicating , third trimester] Onset: 09-18-2023 09-18-2023 Episodic Other complications of (3 sources) Heartburn; Translations: [Other specified related conditions, third trimester] Onset: 09-18-2023 09-18-2023 Episodic Other connective tissue disease (5 sources) [...] Low,>-Panic High,A-Abnormal,AA-Critical Abnormal Performed at: 01 =G [facility] [place] [address] Michelle Rees MD, IGP, RFX APTIMA HPV ASCU Note . [facility] Comment on above: TESTS RESULT FLAG UN ITS REF RANGE LAB DIAGNOSIS: 02 NEGATIVE FOR INTRAEPITHELIAL LESION OR MALIGNANCY. Specimen adequacy: 02 Satisfactory for evaluation. Endocervical and/or squamous metaplastic cells (endocervical component) are present. Performed by: Angie Miranda, Customer Care Team Coach ([facility]) . 02 Note: Note 02 The Pap [...] Low,>-Panic High,A-Abnormal,AA-Critical Abnormal Performed at: [address] [facility] [address] [address] Michelle Rees MD, Performed at: =G - [facility] [address] [id number] Repulping Supervisor: Michelle Rees MD, Phone: [phone] Performed at: - [facility] [address] [id number] Repulping Supervisor: Michelle Rees MD, Phone: [phone] [facility] Human papilloma virus 16+18+ 31+33+35+39+45+51+52+56+58+59+66+68 DNA [Presence] in [place] 09-02-2024 HPV 16+18+31+33+35+39+45+51 +52+56+58+59+66+68 DNA Probe+sig amp Ql (Cvx) Human papilloma virus 16+18+31+33+35+39+4 5+51+52+56+58+59+66 +68 DNA [Presence] in Cer . [facility] Comment on above: TESTS RESULT FLAG UN ITS REF RANGE LAB -DIAGNOSIS: 02 NEGATIVE FOR INTRAEPITHELIAL LESION OR MALIGNANCY.Specimen adequacy: 02 Satisfactory for evaluation. Endocervical and/or squamous metaplastic cells (endocervical component) are present.Performed by: 02 Michael Miranda, Customer Care Team Coach ([facility]). 02Note: Note 02 The Pap smear [...] High <-Panic Low,>-Panic High,A-Abnormal,AA-Critical Abnormal ------Performed at:[address] [address] Michelle Rees MD, Vijzkzzja at: =[facility] [address] [id number] Director: Michelle Rees MD, Phone: [phone] at: [facility] [address] [id number] Director: Michelle Rees MD, Phone: [phone] Panel Informationon 09-02 Reference Lab Test Patient Age Note . [facility] Comment on above: TESTS RESULT FLAG UN ITS REF RANGE LAB - Clinician Provided Cytology Information Source.............Cervix;Endocervix No. of containers..01 ThinPrep VialAge Kym REA Maria Eugenia... FLAG LEGEND: L-Low Normal,H-High Normal,LL-Alert Low,HH-Alert High <-Panic Low,>-Panic High,A-Abnormal,AA-Critical Abnormal ------Performed at:01 =G [address] [address] Michelle Rees MD, HCG ( test) IAbunny d Ql (U)on 08-29-2024 HCG ( test) Ql (U) Urine human chorionic gonadotropin (hCG) detection by immunoassay NEGATIVE [facility] Laboratory - Chemistry and C hemistry - challengeon 08-29-2024 Bilirubin Ql (U) Negative NEGATIVE [facility] Glucose (U) [Mass/Vol] Negative NEGATIVE [facility] Ketones Ql (U) Negative NEGATIVE [facility] pH (U) 6.0 [pH] 5.0-9.0 [facility] Specific gravity (U) [Rel density] >=1.030 Abnormal 1.005-1.025 [facility] Urobilinogen Qn (U) 0.2 {Sara'U}/dL 0.2-1.0 [facility] Laboratory - Specimen inform ationon 08-29-2024 Appearance (U) CLEAR CLEAR [facility] Color (U) LT. YELLOW YELLOW [facility] Laboratory - Urinalysison Leukocyte esterase Test strip Ql (U) Negative NEGATIVE [facility] Mucus Ql (Urine sed) TRACE Abnormal NONE SEEN [facility] Nitrite Ql (U) Negative NEGATIVE [facility] Protein Ql (U) 30 mg/dL Abnormal NEG/TRACE [facility] No Panel Informationon 08-29 Urine Bacteria NONE SEEN #/HPF NONE SEEN [facility] Urine Culture Reflexed NO [facility] Urine Microscopic Review YES [facility] Urine Occult Blood Negative NEGATIVE [facility] Urine RBC NONE SEEN #/HPF 0-2 [facility] Urine Squamous Epithelial Cells FEW #/LPF Abnormal NONE/RARE [facility] Urine WBC NONE SEEN #/HPF NONE SEEN [facility] Influenza virus B Ag [Presen ce] in Upper respiratory specimen by Rapid immunoassayon 08-21-2024 FLUBV Ag IA.rapid Ql (Nph) Influenza virus B Ag [Presence] in Upper respiratory specimen by Rapid immunoassay [facility] No Panel Informationon 08-21 Influenza Type A (Rapid) Negative [facility] POC SARS CoV-2 Antigen Negative [facility] No Panel InformationOrdered By: Zahraa Ortiz on 08-21-2024 Quick Strep (POC) [facility] Basophils Auto (Bld) [#/Vol] on 08-13-2024 Basophils (Bld) [#/Vol] Automated basoph il count 0.0-0.1 [facility] Basophils/100 WBC Auto (Bld) on 08-13-2024 Basophils/100 WBC (Bld) Automated basoph il % 0.2-2.0 [facility] Eosinophils/100 WBC Auto (Bl d)on 08-13-2024 Eosinophils/100 WBC (Bld) Automated eosinophil % 0.9-7.0 [facility] Erythrocyte distribution wid th Auto (RBC) [Ratio]on 08-13-2024 Erythrocyte distribution width (RBC) [Ratio] Erythrocyte distribution width [Ratio] by Automated count 11.0-15.0 [facility] Estimated glomerular filtrat ion rate (GFR) non- Americanon 08-13-2024 GFR/1.73 sq M.predicted among non-blacks MDRD (S/P/Bld) [Vol rate/Area] Estimated glomerular filtration rate (GFR) non- >=60 mL/min/1.73m 2 [facility] Globulin Calc (S) [Mass/Vol] on 08-13-2024 Globulin (S) [Mass/Vol] Serum globulin measurement by calculation (mass/volume) [facility] HCG ( test) Mónica d Ql (U)on 08-13-2024 HCG ( test) Ql (U) Urine human chorionic gonadotropin (hCG) detection by immunoassay NEGATIVE [facility] Hematocrit Auto (Bld) [Volum e fraction]on 08-13-2024 Hematocrit (Bld) [Volume fraction] Hematocrit [Volume Fraction] of Blood by Automated count Low 36.0-48.0 [facility] Hemoglobin [Mass/volume] in Bloodon 08-13-2024 Hemoglobin (Bld) [Mass/Vol] Hemoglobin [Mass/volume] in Blood Low 12.0-16.0 [facility] Laboratory - Chemistry and C hemistry - challengeon 08-13-2024 Albumin [Mass/Vol] 4.0 g/dL 3.4-5.0 [facility] ALP [Catalytic activity/Vol] 55 U/L 46-116 [facility] ALT [Catalytic activity/Vol] 21 U/L 14-59 [facility] AST [Catalytic activity/Vol] 18 U/L 15-37 [facility] Bilirubin [Mass/Vol] 0.6 mg/dL 0.2-1.0 [facility] Calcium [Mass/Vol] 8.7 mg/dL 8.5-10.1 [facility] Chloride [Moles/Vol] 108 mmol/L High 98-107 [facility] CO2 [Moles/Vol] 26.3 mmol/L 21.0-32.0 [facility] Creatinine [Mass/Vol] 0.77 mg/dL 0.55-1.02 [facility] GFR/1.73 sq M.predicted MDRD (S/P/Bld) [Vol rate/Area] mL/min/{1.73_m2} >=60 mL/min/1.73m 2 [facility] Glucose [Mass/Vol] 90 mg/dL 74-106 [facility] Lipase [Catalytic activity/Vol] 63.0 U/L 16.0-77.0 [facility] Potassium [Moles/Vol] 3.9 mmol/L 3.5-5.1 [facility] Protein [Mass/Vol] 6.9 g/dL 6.4-8.2 [facility] Sodium [Moles/Vol] 144 mmol/L 136-145 [facility] Urea nitrogen [Mass/Vol] 14.0 mg/dL 7.0-18.0 [facility] Urea nitrogen/Creatinine [Mass ratio] 18.2 mg/mg [facility] Bilirubin Ql (U) Negative NEGATIVE [facility] Glucose (U) [Mass/Vol] Negative NEGATIVE [facility] Ketones Ql (U) TRACE mg/dL Abnormal NEGATIVE [facility] pH (U) 6.5 [pH] 5.0-9.0 [facility] Specific gravity (U) [Rel density] 1.025 1.005-1.025 [facility] Urobilinogen Qn (U) 0.2 {Sara'U}/dL 0.2-1.0 [facility] Laboratory - Hematology and Cell countson 08-13-2024 Immature granulocytes/100 WBC (Bld) 0.2 % 0.0-0.5 [facility] Laboratory - Specimen inform ationon 08-13-2024 Appearance (U) CLEAR CLEAR [facility] Color (U) YELLOW YELLOW [facility] Laboratory - Urinalysison Leukocyte esterase Test strip Ql (U) Negative NEGATIVE [facility] Nitrite Ql (U) Negative NEGATIVE [facility] Protein Ql (U) TRACE mg/dL NEG/TRACE [facility] Leukocytes [#/volume] correc marv for nucleated erythrocytes in Blood by Automated counon 08-13-2024 WBC corrected for nucl RBC Auto (Bld) [#/Vol] Leukocytes [#/volume] corrected for nucleated erythrocytes in Blood by Automated coun 4.0-11.0 [facility] Lymphocytes Auto (Bld) [#/Vo l]on 08-13-2024 Lymphocytes (Bld) [#/Vol] Lymphocytes [#/volume] in Blood by Automated count 1.2-3.8 [facility] Lymphocytes/100 WBC Auto (Bl d)on 08-13-2024 Lymphocytes/100 WBC (Bld) Lymphocytes/100 leukocytes in Blood by Automated count 20.5-60.0 [facility] MCH Auto (RBC) [Entitic mass ]on 08-13-2024 MCH (RBC) [Entitic mass] MCH [Entitic mass] by Automated count 26.7-34.0 [facility] MCHC Auto (RBC) [Mass/Vol]on 08-13-2024 MCHC (RBC) [Mass/Vol] MCHC [Mass/volume] by Automated count 29.9-35.2 [facility] MCV Auto (RBC) [Entitic vol] on 08-13-2024 MCV (RBC) [Entitic vol] MCV [Entitic volume] by Automated count 81.0-99.0 [facility] Monocytes Auto (Bld) [#/Vol] on 08-13-2024 Monocytes (Bld) [#/Vol] Automated blood monocyte count 0.3-0.8 [facility] Monocytes/100 WBC Auto (Bld) on 08-13-2024 Monocytes/100 WBC (Bld) Automated monocy te % 1.7-12.0 [facility] Neutrophils Auto (Bld) [#/Vo l]on 08-13-2024 Neutrophils (Bld) [#/Vol] Neutrophils [#/volume] in Blood by Automated count 1.4-6.5 [facility] Neutrophils/100 WBC Auto (Bl d)on 08-13-2024 Neutrophils/100 WBC (Bld) Automated neutrophil % 43.0-75.0 [facility] No Panel Informationon 08-13 Eosinophils # (Auto) 0.1 10 3/uL 0.0-0.7 [facility] Immature Granulocyte # (Auto) 0.01 10 3/uL 0.00-0.03 [facility] Urine Microscopic Review NO [facility] Urine Occult Blood Negative NEGATIVE [facility] Platelet mean volume Auto (B ld) [Entitic vol]on 08-13-2024 Platelet mean volume (Bld) [Entitic vol] Platelet mean volume [Entitic volume] in Blood by Automated count 9.5-13.5 [facility] Platelets Auto (Bld) [#/Vol] on 08-13-2024 Platelets (Bld) [#/Vol] Platelets [#/volume] in Blood by Automated count 150-450 [facility] RBC Auto (Bld) [#/Vol]on RBC (Bld) [#/Vol] Erythrocytes [#/volume] in Blood by Automated count Low 4.20-5.40 [facility] Serum or plasma albumin/glob ulin mass ratioon 08-13-2024 Albumin/Globulin [Mass ratio] Serum or plasma albumin/globulin mass ratio [facility] Serum or plasma anion gap de terminationon 08-13-2024 Anion gap [Moles/Vol] Serum or plasma anion gap determination [facility] Urinalysis macro (dipstick) panel (U)on 2023 Bilirubin, UA Negative Negative - 4(70) +++ mg/dL [facility] Blood, UA Negative Negative - 50 Kevin/mcL [facility] Clarity, UA Clear [facility] Color, UA Yellow [facility] Glucose, UA Negative Negative - 2000(110) ++++ mg/dL [facility] Interpretation and review of laboratory results Normal [facility] Ketones, UA Negative Negative - 160(16) ++++ mg/dL [facility] Leukocytes, UA Negative Negative - 500+++ Elijah/mcL [facility] Nitrite, UA Negative Negative - Positive [facility] pH, UA 6.0 5 - 9 [facility] Protein, UA Negative Negative - 2000(20) ++++ mg/dL [facility] Spec Grav, UA 1.025 1 - 1.03 [facility] Urobilinogen, UA 0.2 0.2 - 12 mg/dL [facility] 36on 08-15-2023 36 Msg left on patients phone today regarding telehealth. Normal [facility] Office Visiton 07-27-2023 Follow-up visit [id number] Senthil Scott 2000 F Date Provider Department Center 07/27/2023 Josefina-MELINA HAMM [facility] CARDIO [facility] No family history on file Level of Service:43766 HI OFFICE/OUTPATIENT ESTABLISHED MOD MDM 30-39 MIN (GC) Reason for Visit and Comments: Follow-up [426095] - TECH INTERN LEAKY VALVE, HYPOTENSION Syncope [506] Normal [facility] COVID Quick Testingon 2022 Result Negative [employer] Other Quick Strepon 07-22-2023 S. pyogenes Org specific cx Ql (Throat) Negative [facility] [employer] Other Quick Strep [employer] Other MRI LEG LT WO CONon 11-03-19 [...] CHERRIE ROOT Date: 2022-11-02 23:11 Normal [facility] Amphetamine Screen Ql (U)Ord ered By: Kaci Morales on 10-17-2022 Amphetamines Ql (U) Negative Negative [facility] Automated erythrocytes count in urine sediment (number/area)Ordered By: Kaci Morales on 10-17-2022 RBC Auto (Urine sed) [#/Area] 20-49 [HPF] 0-4 [facility] Automated leukocytes count i n urine sediment (number/area)Ordered By: Kaci Morales on 10-17-2022 WBC Auto (Urine sed) [#/Area] 20-49 [HPF] 0-4 [facility] Automated urine hyaline cast s count (number/volume)Ordered By: Kaci Morales on 10-17-2022 Hyaline casts Auto (U) [#/Vol] None seen [LPF] 0-1 [facility] Automated urine sediment joe cium oxalate crystal count by microscopy (number/high powOrdered By: Kaci Morales on 10-17-2022 Calcium oxalate crystals LM.HPF (Urine sed) [#/Area] 3+ [HPF] [facility] Barbiturates [Presence] in U rineOrdered By: Kaci Morales on 10-17-2022 Barbiturates Ql (U) Negative Negative [facility] Basic Metabolic Panelon Anion gap [Moles/Vol] 13.2 mmol/L Normal 6.0-15.0 [facility] Comment on above: Performed By: #### H S TROP, BMP, CBC #### [facility] [address] Calcium [Mass/Vol] 9.5 mg/dL Normal 8.2-10.2 [facility] Comment on above: Performed By: #### H S TROP, BMP, CBC #### [facility] [address] Chloride [Moles/Vol] 103 mmol/L Normal 95-114 [facility] Comment on above: Performed By: #### H S TROP, BMP, CBC #### [facility] [address] CO2 [Moles/Vol] 25.5 mmol/L Normal 22.0-30.0 [facility] Comment on above: Performed By: #### H S TROP, BMP, CBC #### [facility] [address] [place] [address] [place] Creatinine [Mass/Vol] 0.80 mg/dL Normal 0.44-1.03 [facility] Comment on above: Performed By: #### H S TROP, BMP, CBC #### [facility] [address] [place] [address] [place] Creatinine Clr Calc Pharmacy 87.98 [facility] Comment on above: Result Comment: PERF ORMED BY: [place] [address] PATHOLOGIST NUT GRADER ZEB BASURTO M.D. Performed By: #### H S TROP, BMP, CBC #### [facility] [address] [place] [address] [place] Estimated GFR ( Adelita > 60 Normal [facility] Comment on above: Result Comment: GFR estimated reference range: According to KDOQI guidelines, <60 ml/min/1.73m2 is sufficient to diagnose a patient with chronic kidney disease. Performed By: #### H S TROP BMP, CBC #### [address] Estimated GFR (Non- Am > 60 Normal [facility] Comment on above: Performed By: #### H S TROP BMP, CBC #### [address] Glucose [Mass/Vol] 118 mg/dL High 70-100 [facility] Comment on above: Result Comment: [place] [facility] Glucose Reference Range is dependent on time and content of last meal. Glucose of more than 200 mg/dL in a nonstressed, ambulatory subject supports the diagnosis of Diabetes Mellitus. ADA recommended reference range Performed By: #### H S TROP BMP, CBC #### [address] Potassium [Moles/Vol] 3.7 mmol/L Normal 3.5-5.1 [facility] Comment on above: Performed By: #### H S TROP BMP, CBC #### [address] Sodium [Moles/Vol] 138 mmol/L Normal 136-146 [facility] Comment on above: Performed By: #### H S TROP BMP, CBC #### [address] Urea nitrogen [Mass/Vol] 10 mg/dL Normal 9-23 [facility] Comment on above: Performed By: #### H S TROP BMP, CBC #### [facility] [address] [place] [address] [place] Basophils Auto (Bld) [#/Vol] Ordered By: Kaci Morales on 10-17-2022 Basophils (Bld) [#/Vol] 0.0 10*3/uL 0.0-0.2 [facility] Basophils/100 WBC Auto (Bld) Ordered By: Kaci Morales on 10-17-2022 Basophils/100 WBC (Bld) 0.4 % . F [facility] Benzodiazepines [Presence] i n UrineOrdered By: Kaci Morales on 10-17-2022 Benzodiazepines Ql (U) Negative Negative [facility] Bilirubin Test strip Ql (U)O rdered By: Kaci Morales on 10-17-2022 Bilirubin Ql (U) 1+ Negative [facility] CT head/brain wo conon 10-17 CT head/brain wo con [facility] [place] [address] [place] [address] CT Scan Report Signed Patient: Senthil Scott MR#: [id number] : 2000 Acct:[id number] Age/Sex: 21 / F ADM Date: 10/17/22 Loc: ER Room: Type: [facility] ER Attending Dr: Copies to: [...] Maricruz Vick M.D.10/17/2022 5:07 PM Dictation Location: [place] [address] Transcribed By: [facility] 10/17/221706 Dictated By: Maricruz Vick MD 10/17/221703 Signed By: 10/17/221706 Normal [facility] Cannabinoids [Presence] in U rine by Screen methodOrdered By: Kaci Morales on 10-17-2022 Cannabinoids Screen Ql (U) Positive Negative [facility] Comment on above: These are unconfirme [...] (Urine sed) None seen [LPF] None Seen [facility] Color Auto (U)Ordered By: Yuriy Morales on 10-17-2022 Color (U) Dark yellow Yellow [facility] Complete Blood Count Auto Di ffon 10-17-2022 Basophils (Bld) [#/Vol] 0.0 10*3/uL Normal 0.0-0.2 [facility] Comment on above: Result Comment: PERF ORMED BY: [address] [place] [address] PATHOLOGIST NUT GRADER ZEB BASURTO M.D. Performed By: #### H S TROP, BMP, CBC #### [facility] [address] [place] [address] Basophils/100 WBC (Bld) 0.4 % Normal . [facility] Comment on above: Performed By: #### H S TROP, BMP, CBC #### [facility] [address] [place] [address] [place] Eosinophils (Bld) [#/Vol] 0.0 10*3/uL Normal 0.0-0.45 [facility] Comment on above: Performed By: #### H S TROP, BMP, CBC #### [facility] [address] [place] [address] [place] Eosinophils/100 WBC (Bld) 0.4 % Normal . [facility] Comment on above: Performed By: #### H S TROP, BMP, CBC #### [facility] [address] [place] [address] Erythrocyte distribution width (RBC) [Ratio] 13.0 % Normal 11.9-15.3 [facility] Comment on above: Performed By: #### H S TROP, BMP, CBC #### [address] Hematocrit (Bld) [Volume fraction] 37.2 % Normal 34.0-46.4 [facility] Comment on above: Performed By: #### H S TROP, BMP, CBC #### [address] Hemoglobin (Bld) [Mass/Vol] 12.4 g/dL Normal 11.8-15.4 [facility] Comment on above: Performed By: #### H S TROP, BMP, CBC #### [address] Lymphocytes (Bld) [#/Vol] 1.1 10*3/uL Normal 1.00-4.8 [facility] Comment on above: Performed By: #### H S TROP, BMP, CBC #### [address] Lymphocytes/100 WBC (Bld) 14.5 % Normal . [facility] Comment on above: Performed By: #### H S TROP BMP, CBC #### [address] MCH (RBC) [Entitic mass] 29.4 pg Normal 24.7-34.3 [facility] Comment on above: Performed By: #### H S TROP, BMP, CBC #### [address] MCV (RBC) [Entitic vol] 88.6 fL Normal 80-100 [facility] Comment on above: Performed By: #### H S TROP, BMP, CBC #### [address] Mean Corpuscular HGB Conc 33.2 g/dL Normal 32.0-35.0 [facility] Comment on above: Performed By: #### H S TROP, BMP, CBC #### [place] [address] [place] Monocytes (Bld) [#/Vol] 0.4 10*3/uL Normal 0.0-0.8 [facility] Comment on above: Performed By: #### H S TROP BMP, CBC #### [facility] [address] [place] [address] [place] Monocytes/100 WBC (Bld) 14.49 % Normal 0.00-20.00 [facility] Comment on above: Performed By: #### H S TROP BMP, CBC #### [facility] [address] [place] [address] [place] Monocytes/100 WBC (Bld) 5.2 % Normal . [facility] Comment on above: Performed By: #### H S TROP BMP, CBC #### [facility] [address] Neutrophils (Bld) [#/Vol] 5.8 10*3/uL Normal 1.8-7.7 [facility] Comment on above: Performed By: #### H S TROP BMP, CBC #### [facility] [address] [place] [address] [place] Neutrophils/100 WBC (Bld) 79.5 % Normal . [facility] Comment on above: Performed By: #### H S TROP BMP, CBC #### [facility] [address] [place] [address] [place] NRBC% 0.1 /100{WBC} Normal 0-0.5 [facility] Comment on above: Performed By: #### H S TROP BMP, CBC #### [facility] [address] [place] [address] [place] Platelet mean volume (Bld) [Entitic vol] 7.9 fL Normal 6.3-10.7 [facility] Comment on above: Performed By: #### H S TROP BMP, CBC #### [facility] [address] [place] [address] [place] Platelets (Bld) [#/Vol] 229 10*3/uL Normal 150-450 [facility] Comment on above: Performed By: #### H S TROP BMP, CBC #### [facility] [address] RBC (Bld) [#/Vol] 4.19 10*6/uL Normal 3.60-5.00 [facility] Comment on above: Performed By: #### H S TROP, BMP, CBC #### [facility] [address] WBC (Bld) [#/Vol] 7.3 10*3/uL Normal 3.8-11.6 [facility] Comment on above: Performed By: #### H S TROP, BMP, CBC #### [facility] [address] Creatinine and Glomerular fi ltration rate.predicted panel (S/P/Bld)Ordered By: Kaci Morales on 10-17-2022 Creatinine [Mass/Vol] 0.80 mg/dL 0.44-1.03 [facility] Dipstick and Microscopicon 0 10-17-2022 Appearance (U) Cloudy Critically abnormal Clear [facility] Comment on above: Order Comment: Name Collection Type:: Clean-Voided Midstream Performed By: #### A DDONUAPLUS, UHCG, CUU #### [address] Bacteria,Urine 1+ High None Seen [facility] Comment on above: Order Comment: Name Collection Type:: Clean-Voided Midstream Performed By: #### A DDONUAPLUS, UHCG, CUU #### [facility] [address] [place] [address] [place] Bilirubin,Urine 1+ High Negative [facility] Comment on above: Order Comment: Name Collection Type:: Clean-Voided Midstream Performed By: #### A DDONUAPLUS, UHCG, CUU #### [address] Calcium Oxalate Crystals,Urine 3+ Normal [facility] Comment on above: Order Comment: Name Collection Type:: Clean-Voided Midstream Performed By: #### A DDONUAPLUS, UHCG, CUU #### [facility] [address] [place] [address] [place] Color (U) Dark Yellow Critically abnormal Yellow [facility] Comment on above: Order Comment: Name Collection Type:: Clean-Voided Midstream Performed By: #### A DDONUAPLUS, UHCG, CUU #### [facility] [address] [place] [address] [place] Glucose Ql (U) Normal Normal Normal [facility] Comment on above: Order Comment: Name Collection Type:: Clean-Voided Midstream Performed By: #### A DDONUAPLUS, UHCG, CUU #### [facility] [address] [place] [address] [place] Hyaline Casts,Urine None Seen Normal 0-1 [facility] Comment on above: Order Comment: Name Collection Type:: Clean-Voided Midstream Performed By: #### A DDONUAPLUS, UHCG, CUU #### [facility] [address] [place] [address] [place] Ketones Ql (U) 1+ High Negative [facility] Comment on above: Order Comment: Name Collection Type:: Clean-Voided Midstream Performed By: #### A DDONUAPLUS, UHCG, CUU #### [facility] [address] [place] [address] [place] Leukocyte esterase Test strip Ql (U) 2+ High Negative [facility] Comment on above: Order Comment: Name Collection Type:: Clean-Voided Midstream Performed By: #### A DDONUAPLUS, UHCG, CUU #### [facility] [address] [place] [address] [place] Nitrite,Urine Negative Normal Negative [facility] Comment on above: Order Comment: Name Collection Type:: Clean-Voided Midstream Performed By: #### A DDONUAPLUS, UHCG, CUU #### [facility] [address] [place] [address] [place] Occult Blood,Urine 3+ High Negative [facility] Comment on above: Order Comment: Name Collection Type:: Clean-Voided Midstream Performed By: #### A DDONUAPLUS, UHCG, CUU #### [facility] [address] [place] [address] Othe Crystals,Urine None Seen Normal [facility] Comment on above: Order Comment: Name Collection Type:: Clean-Voided Midstream Performed By: #### A DDONUAPLUS, UHCG, CUU #### [facility] [address] [place] [address] Other Casts,Urine None Seen Normal None Seen [facility] Comment on above: Order Comment: Name Collection Type:: Clean-Voided Midstream Performed By: #### A DDONUAPLUS, UHCG, CUU #### [address] pH (U) 5.0 [pH] Normal 5.0-9.0 [facility] Comment on above: Order Comment: Name Collection Type:: Clean-Voided Midstream Performed By: #### A DDONUAPLUS, UHCG, CUU #### [address] Protein (U) [Mass/Vol] 100 mg/dL High Negative [facility] Comment on above: Order Comment: Name Collection Type:: Clean-Voided Midstream Performed By: #### A DDONUAPLUS, UHCG, CUU #### [facility] [address] [place] [address] RBC,Urine 20-49 High 0-4 [facility] Comment on above: Order Comment: Name Collection Type:: Clean-Voided Midstream Performed By: #### A DDONUAPLUS, UHCG, CUU #### [facility] [address] [place] [address] Specificy [place],Urine 1.035 High 1.001-1.030 [facility] Comment on above: Order Comment: Name Collection Type:: Clean-Voided Midstream Performed By: #### A DDONUAPLUS, UHCG, CUU #### [place] [address] [place] Squamous Epithelial Cell,Urine 5-9 High 0-2 [facility] Comment on above: Order Comment: Name Collection Type:: Clean-Voided Midstream Performed By: #### A DDONUAPLUS, UHCG, CUU #### [facility] [address] [place] [address] Urobilinogen,Urine Normal Normal Normal [facility] Comment on above: Order Comment: Name Collection Type:: Clean-Voided Midstream Performed By: #### A DDONUAPLUS, UHCG, CUU #### [address] WBC,Urine 20-49 High 0-4 [facility] Comment on above: Order Comment: Name Collection Type:: Clean-Voided Midstream Performed By: #### A DDONUAPLUS, UHCG, CUU #### [address] Drug Screen,Urineon 10-17-19 23 Amphetamine Screen,Urine Negative Normal Negative [facility] Comment on above: Performed By: #### U RDS #### [address] Barbiturate Screen,Urine Negative Normal Negative [facility] Comment on above: Performed By: #### U RDS #### [address] Benzodiazepines Screen,Urine Negative Normal Negative [facility] Comment on above: Performed By: #### U RDS #### [facility] [address] [place] [address] Cannabinoid Screen,Urine Positive High Negative [facility] Comment on above: Result Comment: Thes e are unconfirmed results and should not be used for legal purposes. Drug Cut-Off Concentration: AMPH 1000 ng/mL JERRY 200 ng/mL BOBBI 200 ng/mL COCM 300 ng/mL OP 300 ng/mL PCP 25 ng/mL THC 20 ng/mL PERFORMED BY: [place] [address] PATHOLOGIST NUT GRADER ZEB BASURTO M.D. Performed By: #### U RDS #### [address] [place] [address] [place] Cocaine Screen,Urine Negative Normal Negative [facility] Comment on above: Performed By: #### U RDS #### [facility] [address] Opiate Screen,Urine Negative Normal Negative [facility] Comment on above: Performed By: #### U RDS #### [facility] [address] Phencyclidine Screen,Urine Negative Normal Negative [facility] Comment on above: Performed By: #### U RDS #### [facility] [address] [place] [address] ECG 12 lead ECGon 10-17-2022 ECG 12 lead ECG [facility] [place] [address] [place] [address] Electrocardiograph Report Signed Patient: Senthil Scott MR#: [id number] : 2000 Acct:[id number] Age/Sex: 21 / F ADM Date: 10/17/22 Loc: ER Room: Type: [facility] ER Attending Dr: Ordering Provider: Kaci [...] Rightward axis Confirmed by Hai DUFFY DO ([id number]) on 10/17/2022 6:46:54 PM Referred By: Electronically Signed By:Hai DUFFY DO Transcribed By: MUS Signed By Hai Duffy DO 0 10/17/22 1846 Normal [facility] Eosinophils Auto (Bld) [#/Vo l]Ordered By: Kaci Morales on 10-17-2022 Eosinophils (Bld) [#/Vol] 0.0 10*3/uL 0.0-0.45 [facility] Eosinophils/100 WBC Auto (Bl d)Ordered By: Kaci Morales on 10-17-2022 Eosinophils/100 WBC (Bld) 0.4 % . [facility] Erythrocyte distribution wid th Auto (RBC) [Ratio]Ordered By: Kaci Morales on 10-17-2022 Erythrocyte distribution width (RBC) [Ratio] 13.0 % 11.9-15.3 [facility] Estimated glomerular filtrat ion rate (GFR) non- AmericanOrdered By: Kaci Morales on 10-17-2022 GFR/1.73 sq M.predicted among non-blacks MDRD (S/P/Bld) [Vol rate/Area] > 60 mL/Min [facility] HCG ( test) IA.rapi d Ql (U)Ordered By: Kaci Morales on 10-17-2022 HCG ( test) Ql (U) Negative [facility] HCG,Urineon 10-17-2022 Beta HCG ( test) Ql (U) Negative Normal [facility] Comment on above: Order Comment: Name Collection Type:: Clean-Voided Midstream Result Comment: PERF ORMED BY: [place] [address] PATHOLOGIST NUT GRADER ZEB BASURTO M.D. Performed By: #### A J[facility], [facility] #### [address] Hematocrit Auto (Bld) [Volum e fraction]Ordered By: Kaci Morales on 10-17-2022 Hematocrit (Bld) [Volume fraction] 37.2 % 34.0-46.4 [facility] Hemoglobin [Mass/volume] in BloodOrdered By: Kaci Morales on 10-17-2022 Hemoglobin (Bld) [Mass/Vol] 12.4 g/dL 11.8-15.4 [facility] Ketones Auto test strip (U) [Mass/Vol]Ordered By: Kaci Morales on 10-17-2022 Ketones (U) [Mass/Vol] 1+ Negative [facility] - Drug toxicology Ordered By: Kaci Morales on 10-17-2022 Opiates Ql (U) Negative Negative [facility] Leukocytes [#/volume] correc marv for nucleated erythrocytes in Blood by Automated counOrdered By: Kaci Morales on 10-17-2022 WBC corrected for nucl RBC Auto (Bld) [#/Vol] 7.3 10*3/uL 3.8-11.6 [facility] Lymphocytes Auto (Bld) [#/Vo l]Ordered By: Kaci Morales on 10-17-2022 Lymphocytes (Bld) [#/Vol] 1.1 10*3/uL 1.00-4.8 [facility] Lymphocytes/100 WBC Auto (Bl d)Ordered By: Kaci Morales on 10-17-2022 Lymphocytes/100 WBC (Bld) 14.5 % . [facility] MCH Auto (RBC) [Entitic mass ]Ordered By: Kaci Morales on 10-17-2022 MCH (RBC) [Entitic mass] 29.4 pg 24.7-34.3 [facility] MCHC Auto (RBC) [Mass/Vol]Or dered By: Kaci Morales on 10-17-2022 MCHC (RBC) [Mass/Vol] 33.2 g/dL 32.0-35.0 Fir [facility] MCV Auto (RBC) [Entitic vol] Ordered By: Kaci Morales on 10-17-2022 MCV (RBC) [Entitic vol] 88.6 fL 80-100 F [facility] Monocyte distribution width [Entitic volume] in Blood by AutomatedOrdered By: Kaci Morales on 10-17-2022 Monocyte distribution width Auto (Bld) [Entitic vol] 14.49 % 0.00-20.00 [facility] Monocytes Auto (Bld) [#/Vol] Ordered By: Kaci Morales on 10-17-2022 Monocytes (Bld) [#/Vol] 0.4 10*3/uL 0.0-0.8 [facility] Monocytes/100 WBC Auto (Bld) Ordered By: Kaci Morales on 10-17-2022 Monocytes/100 WBC (Bld) 5.2 % . [facility] Neutrophils Auto (Bld) [#/Vo l]Ordered By: Kaci Morales on 10-17-2022 Neutrophils (Bld) [#/Vol] 5.8 10*3/uL 1.8-7.7 [facility] Neutrophils/100 WBC Auto (Bl d)Ordered By: Kaci Morales on 10-17-2022 Neutrophils/100 WBC (Bld) 79.5 % . [facility] Nitrite Test strip Ql (U)Ord ered By: Kaci Morales on 10-17-2022 Nitrite Ql (U) Negative Negative [facility] No Panel InformationOrdered By: Kaci Morales on 10-17-2022 Estimated GFR () > 60 mL/Min [facility] Comment on above: GFR estimated refere nce range: According to KDOQI guidelines, <60 ml/min/1.73m2 is sufficient to diagnose a patient with chronic kidney disease. Pharmacy Creatinine Clearance (Chem 87.98 [facility] Nucleated erythrocytes [Pres ence] in Blood by Automated countOrdered By: Kaci Morales on 10-17-2022 Nucleated RBC Auto Ql (Bld) 0.1 /100{WBC} 0-0.5 [facility] Phencyclidine Screen Ql (U)O rdered By: Kaci Morales on 10-17-2022 Phencyclidine Ql (U) Negative Negative [facility] Platelet mean volume Auto (B ld) [Entitic vol]Ordered By: Kaci Morales on 10-17-2022 Platelet mean volume (Bld) [Entitic vol] 7.9 fL 6.3-10.7 [facility] Platelets Auto (Bld) [#/Vol] Ordered By: Kaci Morales on 10-17-2022 Platelets (Bld) [#/Vol] 229 10*3/uL 150-450 [facility] Protein Auto test strip (U) [Mass/Vol]Ordered By: Kaci Morales on 10-17-2022 Protein (U) [Mass/Vol] 100 mg/dL Negative [facility] RBC Auto (Bld) [#/Vol]Ordere d By: Kaci Morales on 10-17-2022 RBC (Bld) [#/Vol] 4.19 10*6/uL 3.60-5.00 [facility] Serum or plasma anion gap de terminationOrdered By: Kaci Morales on 10-17-2022 Anion gap [Moles/Vol] 13.2 mmol/L 6.0-15.0 [facility] Serum or plasma calcium jesus urement (mass/volume)Ordered By: Kaci Morales on 10-17-2022 Calcium [Mass/Vol] 9.5 mg/dL 8.2-10.2 [facility] Serum or plasma chloride iam surement (moles/volume)Ordered By: Kaci Morales on 10-17-2022 Chloride [Moles/Vol] 103 mmol/L 95-114 [facility] Serum or plasma glucose jesus urement (mass/volume)Ordered By: Kaci Morales on 10-17-2022 Glucose [Mass/Vol] 118 mg/dL 70-100 [facility] Comment on above: ADA recommended refe rence rangeRandom Glucose Reference Range is dependent on time and content of last meal. Glucose of more than 200 mg/dL in a nonstressed, ambulatory subject supports the diagnosis of Diabetes Mellitus. Serum or plasma potassium me asurement (moles/volume)Ordered By: Kaci Morales on 10-17-2022 Potassium [Moles/Vol] 3.7 mmol/L 3.5-5.1 [facility] Serum or plasma sodium measu rement (moles/volume)Ordered By: Kaci Morales on 10-17-2022 Sodium [Moles/Vol] 138 mmol/L 136-146 [facility] Serum or plasma total carbon dioxide measurement (moles/volume)Ordered By: Kaci Morales on 10-17-2022 CO2 [Moles/Vol] 25.5 mmol/L 22.0-30.0 [facility] Serum or plasma urea nitroge n measurement (mass/volume)Ordered By: Kaci Morales on 10-17-2022 Urea nitrogen [Mass/Vol] 10 mg/dL 9-23 [facility] Specific gravity Auto test s trip (U) [Rel density]Ordered By: Kaci Morales on 10-17-2022 Specific gravity (U) [Rel density] 1.035 1.001-1.030 [facility] Squamous epithelial cells de tection in urine sediment by light microscopyOrdered By: Kaci oMrales on 10-17-2022 Epithelial cells.squamous LM Ql (Urine sed) 5-9 [HPF] 0-2 [facility] Troponin I High Sensitivityo n 10-17-2022 Troponin I High Sensitivity < 3 Normal 0-15 [facility] Comment on above: Result Comment: PERF ORMED BY: [place] [address] PATHOLOGIST NUT GRADER ZEB BASURTO M.D. Performed By: #### H S TROP, BMP, CBC #### [facility] [address] [place] [address] Troponin I.cardiac [Mass/vol ume] in Serum or Plasma by High sensitivity methodOrdered By: Kaci Morales on 10-17-2022 Troponin I.cardiac High sensitivity method [Mass/Vol] < 3 pg/mL 0-15 [facility] Urine Cultureon 10-17-2022 Bacteria identified Cx Nom (U) 75,000 colonies/ml mixed bacterial skin contaminants 2 Days PERFORMED BY: [place] [address] PATHOLOGIST NUT GRADER ZEB BASURTO M.D. Normal [facility] Comment on above: Performed By: #### A DDONUAPLUS, UHCG, CUU #### [facility] [address] [place] [address] [place] Urine bacteria detection by automated methodOrdered By: Kaci Morales on 10-17-2022 Bacteria Auto Ql (U) 1+ None Seen [facility] Urine clarity by refractomet ry automatedOrdered By: Kaci Morales on 10-17-2022 Clarity Refractometry automated (U) Cloudy Clear [facility] Urine cocaine detectionOrder ed By: Kaci Morales on 10-17-2022 Cocaine Ql (U) Negative Negative [facility] Urine glucose measurement by automated test strip (mass/volume)Ordered By: Kaci Morales on 10-17-2022 Glucose Auto test strip (U) [Mass/Vol] Normal mg/dL Normal [facility] Urine hemoglobin detection b y automated test stripOrdered By: Kaci Morales on 10-17-2022 Hemoglobin Auto test strip Ql (U) 3+ Negative [facility] Urine leukocyte esterase det ection by automated test stripOrdered By: Kaci Morales on 10-17-2022 Leukocyte esterase Auto test strip Ql (U) 2+ Negative [facility] Urine sediment crystal ident ification by light microscopyOrdered By: Kaci Morales on 10-17-2022 Crystals LM Nom (Urine sed) None seen [HPF] [facility] Urobilinogen Auto test strip (U) [Mass/Vol]Ordered By: Kaci Morales on 10-17-2022 Urobilinogen (U) [Mass/Vol] Normal mg/dL Normal [facility] WBC Auto (Bld) [#/Vol]Ordere d By: Kaci Morales on 10-17-2022 WBC (Bld) [#/Vol] 7.3 10*3/uL 3.8-11.6 [facility] XR chest 1V portableon 10-17 XR chest 1V portable [facility] [place] [place] [address] XRay Report Signed Patient: Senthil Scott MR#: [id number] 949 : 2000 Acct:[id number] Age/Sex: 21 / F ADM Date: 10/17/22 [...] Maricruz Vick M.D.10/17/2022 4:47 PM Dictation Location: [place] [address] Transcribed By: [facility] 10/17/221646 Dictated By: Maricruz Vick MD 10/17/221644 Signed By: 10/17/221646 [facility] pH Auto test strip (U)Ordere d By: Kaci Morales on 10-17-2022 pH (U) 5.0 [pH] 5.0-9.0 [facility] Provider Letter FTon 05-31 Provider Letter [facility] [place] 31, [place] SENTHIL SCOTT S [address] [place] [phone] SENTHIL SCOTT S 2000 To Whom It May Concern, Please excuse above patient from work 05/28/2022. Dr. Sal Downs MD General Surgery [facility] Provider Letteron 05-17-2022 Provider Letter May 17, 2022 SENTHIL SCOTT S [address] [place] [phone] SENTHIL SCOTT S 2000 Dear Senthil, We have been trying to reach you with no success. It is important that you return our call regarding your referral from Dr. Ham upon receiving this letter. Also, at the time of your call, please provide us with your current information. Thank you for your prompt attention to this matter. Sincerely, General Surgery [phone] [facility] Physician Referralon 022 Physician Referral [phone] [id number] [facility] 2019 Novel Coronavirus (CoVI D-19), EMELYN LCon 02-10-2022 SARS-CoV-2 (COVID-19) RNA EMELYN+probe Ql (Unsp spec) Not detected Invalid Interpretation Code Not Detected [facility] Comment on above: Order Comment: [id number] 1 ph# [phone] Result Comment: This nucleic acid amplification test was developed and its performance characteristics determined by [employer]. Nucleic acid amplification tests include RT- PCR [...] detected) result in this assay. Performed At: [facility] [id number] Sanjuanita Hernández PhD Ph:[phone] Performed By: #### [id number] #### [facility] [place] [address] Coding Summary 02-10-2022 Coding Summary [employer] 64 MabgbvemBHv2wDw+PGh lYWQ+YB5FANNnH51hcS AufH2LP5vWZD4UFKMEP DBGNE9NSY5bwUK7DEzu K6AkfxRi VxuuwXYmBN66CWj0RRL 0eBwbQHigcK5uiBMvV9 b9QyGaYS56gV79TDeoH TUrOeY6NaMmginnuWTh Y9weIsUmzTKeMoc+PHR hYmxlIHdpZHRoPScxMD AqZfXpxSdnNL2sSu8oF GVyLWNvbGxhcHNlOiBj y4ztYIQtVGsmCE5wsTj sA5KtbKD2UKRzq2v1Fp 48dHI+KUOqTGF1kQtcY Botr368GgSim5kuEIL3 xHEgRCmoANI0R01qf7C 9FJLrQAIoNFO3uWT9gY 5tvRfkrgngP5SvdLUrH iH5WAH8uJSadD7rxDnf kynqcW5fIbu+S11CHG1 WDDKQWL6HXng3E8YzUc wvdHI+FH81TQYdFU48v ONaoDSav6ferOm1LrDp OJKaWDE6xMsiIZywf1D dNJLoD10snFHyw4N7NZ YbmKmpdLEhQiZejEC1d B7eFZswdjopp8qokpxa Wadql3eliq28pG18A64 kPJzcGHMvJSR4QLTzYG VfzImylk1edY2pGt3+I Aoul1nst5bejGh8IjMh IJUojeDfqEqmHKN6i8E sIk25F2DhkMfuq6XcBx b8dl49lITns5E2iOF6I JsrCOQnwN4fZHeuDmJ1 GPVaYtAvsE54kGUsFDv sEl1taGtulNvvHI5hMJ OrzrvrVPEisR7cCFSmz GAfwAtlQN6zXBAbwnny u101PaRrAEV1VYLwcRR sB7MnwB7jHxAqTKGqOE HeI8DfyEXqHNduF081P CejYbF7XKVyocTwF0Av RCMsyEbaTyF8o6B1Pf5 Nd9NgpbeaQPY0WTdlUC R1QhWaUtVkBjD8V1YiC kg7HENpeTknGQ9lK3Ge KWPtyopkgpzszFC2SVK uPQMayJ59vSGuTAvvMg 3no1L7r457WDVhLRMhn M92Qt8spJcaIOGviPUJ zV8cbumdv2qcuhjoZaO hLFHvWQr6GEk7NEZduE psJrVcBRF6UnF8OVZ9f QQobE4osVbfgpukfZ8l Oyc+B34njD1gBLB3FIV 2nsgrJQCxfdHkWJ43AE 39J3ChLwegkWBuyEF+P KGsvcBruJgpWL1gAkTj r3mok2AbITvoY0GsGIG kMKmrHns2EUSbMSK6aG U5lP8tXAWrQVsyf2V3f FR5C5KemjMrvx0zm4rr QDHsHRpdK60ngTOei7N 4TMDlcWR9MDTbjRnlUu KejQ00Wef+PGNvbGdyb 5EyFumjk3ntw7stoXs5 IjMwJSIgdmFsaWduPSJ 5l0LnOn39D33wNHoeNB RoPSIxNSUiIHZhbGlnb v1xcQ3hWe3+PGNvbCB3 rHA6gQ0zKUKdIqF8WVo vY341NuLobFBbYttmu5 lkf8nbaHl3CfHdPSVxr gOvlOlmRHQ3u5PqLt25 P10fSOoaAJNfIEIeBQH lXGJivBanhz0lmN9yBx 8+LK1wo4fbfr44rU64m HI+GXQpWII0zVqtXYoc UXZfeV9wTZxqEeN8KNJ zWoZxiJ78gVVtOLwuOo 1rfHplwJbeNJ7lNTSem qawn522VuDpb6ilKIRi zQMaBCckRMJ2X14iy5G 8BEDpJIVpKSY4pJX6sQ 1hbGlnbjogbGVmdDsgd kUicCcuCVvtBPwrB181 IHRvcDsnPlBhdGllbnQ wUoVkIYv0Q7OwLdt8MR SdiNckTN0rrUChVJxdH d0abXnztDbtNE0rDHJp hixwv253PrPlu2jmNWO dbGKiMYapWVI2T71lt8 D4VBEsOSRtGOC3wGI5a P1ueZxcddsofEAaoEpz qiHhkKohNTrvRCniL28 6IHRvcDsnPkJpcnRoIE MdhNU3LE65KC44vSUwr 2R9gIP0Z8OtZUYmesxt rmxeyCY7BLTeXPHvyF8 8Qn4qeUguDg7tOPAnCO Q3KLLkcQDhH6XzxI1lO gHoETCqMKVeV3AgfUAt JOfaD849QPshEqE9RYF pccIgS0CkIASsgIzmYn Q5w3J6Kg0BD2K6AY73U X07mEKjt7V0jCM4Q5Ah JFCgofkdtrkbeED3MCH eUGQwfF97Xp1saDraTo 5uRLWtFBB8OIZeyHGfU 2BdwR6bYdPfLBCuCJWh L7WmgTUcLUxfC760JKh aAhQ4MHRjgzRwL1OdWA MeuBezKfA8c3A2Mv1KL Sz7QB47KV61mBKde2K4 gEM9X6RlFYIrdhldvpu twJC5WYGmIJKfhO58Ez 3vaSqxUn0ePERsYSJ8V UHwbKQdR3BybB5lMmHw YJFrHILwS2WpcXSyOBy aZ796VJquPsC8EFDkad TpV7BsZYCvaXsvDgO2h 2X1Qi3YPCArDZ16NCD3 gWF1BZ89TF76J7PtYgj vdGFibGU+PHRhYmxlIH dpZHRoPScxMDAlJyBzd PkwHI2bHu2qMFZmMWXm gSfonIEqViDmw7czWCZ pTVosEZ3ecQljN4TzyA N1ZNCtr6x4Qi99B13lD 3JvdXA+NAAkeRE2dTK4 qH9dGwRkQxV7PQfoJ66 2BiSjkFFyUkxmx7qnx2 gqwAy0IrJ0CLNdkqSaz NkiCIL0v9NgFk95M71n IHdpZHRoPSIxNSUiIHZ yoFwxhd0oeQ1bNf5+PG VfhVS7uPQ3nG8qNtDkN nH4YHxsC114IwKkoXYo Bmxfq4flm0ptyWk6LdI cJNIczlGgcXhjLMA3u9 HrCl31J6IgfCtur6RoU xp2qz88sTMnz3X2nSQ8 D2VeZGLxqukomWTelWj jHQ7eSJDfuvulVRHbcD 2zVOTgH1h3GmJqZbX0G SfdJ9WuieN0UIXvmINs WXagBBT6X88qs2J8YXL dXHUjRIP3jHI7sT9nbO lnbjogbGVmdDsgdmVyd KoiQVjjFUzcK358EKPb mGbbMKMygL9dQXVohWX mfFcqRW0yWPUdqnrjSx yKURpTDtdjLCaUN6ZSY FNVRTwvdGQ+PHRkIHN0 tEhfNLbpMFHjzH3uOTK aG5s2XnDvQpK7JQcmZ5 FdLACzterhCn72bT3kW hHiRwE7QNzyQ7LhsjH9 NWXlqSZiFCtwXIX0G42 xa7W0QNNpNQWkKJS1mN V4zM3fnYtxcfxexYYnu DsgdmVydGljYWwtYWxp J425TIXwfAqcWhCgRwO 7NhKjZFR6E2GuKpp5ZY CepHizXD5ovRXzJYuxQ l0vgWbjsUubCQ5rLOSu adwnBCRtcP0wKUMwxIV yuEdqKJ0iHPFnccueo9 66QiMvJVE0KGZcmVYwG 6LgvV3cXnBjDPDdFVTz V7VddUJkNMpxQ214QYu dFyD7WBPtauHdB3JgFG BllYffHvM6p7V4Kt2eE SBZZWFyczwvdGQ+PHRk AQR4mKltITlzPLWayO9 cTMOaY8d5LwWrJeP7QN tbU2TiJOJqnbzxQv77s B1rWwYzVvH9EJsrZ4Zh vnW0IVMamQArWExxONB 9H37ex8Q3HYByZFIeWW E6rTB3vC6xmHdhxdzdy GVmdDsgdmVydGljYWwt THauF011JHAuzKctZmL FTUFMRTwvdGQ+PHRkIH B9jVjdYXcgPKPceW4fO GHrJ1g7BfVqXpB2CDqn J8RoGYEuyxqpYv16yZ4 fMsJiHhY8IIrvW5Auqa E3JZHcpFPuTGoiOSI3L 18lc9T3SFNaXMVeHAA9 xZZ6nP8knDgevgwtjQJ mdDsgdmVydGljYWwtYW giY240SYDitLiwOr2RB N76OE71H9KwJuldlLBz bGU+PHRhYmxlIHdpZHR oPScxMDAlJyBzdHlsZT 0kVk2uKIOaHQPekWxzz NDqJzRyy7diYIWmOLds TX5ecStaT3XgzBK1FTX gx4u0Fd66N13xA3QlwJ A+UCIrrMB0kKI4xK2nD oKjNoD5TPtvX355UgLs sFOaLsrvh0hse8joiZd 9IjMwJSIgdmFsaWduPS F7v2PtBm63A02gXDxqJ HRoPSIyMCUiIHZhbGln ra1ssA1wTg3+PGNvbCB 5tDJ0wF2bYgKyEaT0QP lkT777GeNrjZHlBzvuT 54aG2LqgKS+PHRyPjx0 QZDtrJwwWY5zjRKdEJu gHx5yNLT5GdUuIvUxEK zsW2LeVYOjixuxuklvd EA3OMTdQSOihN80Tf0q vRztOh5nMQRhBFS7XBC vzHYxX0AmfW9oDcQoQL AzWBCzP9SgzBYpPWuhH 022WRnjDyN6OWEgycLt H7PxIERguRavEdI0z9B 2Rj5ZzVsatMZbGE9wXc YiDMz5A7GqUiu0ETEhv AwfOR8niMYhRUggLk8w jXyxdYjtJH1bCJGllbo cu050YcBqn6fnQONkoO CcJDuvTAM9M52pw3V9X GArDGBgXJC2wUT9nV5n bGlnbjogbGVmdDsgdmV ojYbwWXllTVjnX074FT PblGanVyPWUbs3T2CqE wz4XUEktUdqSV0gdTCg RUfcDj1blFdgqAhlVU5 sZSSehpujn473BiZfb1 orHWKefAOmBXigUDE7I 12di4B1LVCrHPLhZGX1 kIT6mQ3snHwcsvhnsHE mdDsgdmVydGljYWwtYW cmF847CDEgvTxhXm9TH hn8W4JoVpk5FSEthTaj VY1vtFEvYHxmHf4imPx qdGubIF2jDPYqxdcmr0 49ZsDow6noHMMmsHFfJ FygZXG8K00zl0H1USGn APTyPJP9pYA9sX0vfYh nbjogbGVmdDsgdmVydG rbTUktTAwbK777DBDnb DsnPlBheWVyOjwvdGQ+ BE52ej77Y8XuIpqdFul 3LOEhGWA4wQB1uX7dQW IyJSjir8H6sQD8B2Krg oZyyn1ap6rlIOGxVXcl Y29 (more content not included)... Normal [facility] ED Clinical Summaryon 2021 ED Clinical Summary [facility] ? Urgent Care [address] [place] [address] Clinical Summary PERSON INFORMATION Name: SENTHIL SCOTT Age: 21 Years Sex: FEMALE : 2000 MRN: Acct#: Visit Reason: UC - Headache; HEADACHE, NAUSEA Arrival: 02/07/2022 17:42:14 Discharge: 02/07/2022 19:03:00 LOS: 000 01:21 Check In: 02/07/2022 17:42:14 Checkout: 02/07/2022 19:03:00 Address: [address] [place] [address] [address] [facility] [address] PCP: Liberty Pierre MD PROVIDER INFORMATION Provider Role Assigned Unassigned Cedric Hemphill ED PA 02/07/2022 17:46:36 Salena Ochoa DOCUMENT CONTROL ASSISTANT Nurse 02/07/2022 17:46:51 VITALS INFORMATION Vital Sign [...] What to Do If You Are Sick- [facility] (11/25/2020); Viral Respiratory Infection Follow-Up: With: Address: When: Liberty Pierre [address] [place] [address] [address] [place] [id number] [facility] (1) Within 2 to [...] guidelines from the State Medical Board of [place]. -Push fluids to stay hydrated. -Use Tylenol [...] to drop your groceries off and pick up worker your medications. I would recommend that person [...] URI with cough Patient Understands: Yes - Patient/family/transition of care specialist verbalizes understanding of instructions given Comment: Normal [facility] ED Patient Summaryon 022 ED Patient Summary [facility] ? Urgent Care [address] [place] [address] PATIENT DISCHARGE INSTRUCTIONS Patient Information Name: SENTHIL SCOTT Age: 21 Years Date of : 2000 Reason For Visit: UC - Headache; HEADACHE, NAUSEA Arrival Time: 02/07/2022 17:42:14 Primary Care Physician: Liberty Pierre MD Attending Physician: Cedric Hemphill Comment: Patient Education With: Address: When: Liberty Pierre [address] [place] [address], [place] [address] Business (1) Within 2 to [...] and guidelines from the State Medical Board [facility]. -Push fluids to stay hydrated. -Use Tylenol [...] to drop your groceries off and pick up worker your medications. I would recommend that person [...] yourself. Get rest and stay hydrated. Take xdlh-dcj-nykfxlr medicines, such as acetaminophen, to help you feel better. ? Stay in touch with your doctor. Call before you get medical care. Be sure to get care if (more content not included)... Normal [facility] Influenza A&B Rapidon 2021 Influenza A Negative Normal Negative [facility] Comment on above: Performed By: #### 1 [id number] #### [facility] (DEFAULT) [address] [place] [address] Influenza B Negative [place] Negative [facility] Comment on above: Performed By: #### 1 [id number] #### [facility] (DEFAULT) [address] [place] [address] Internal QC OK? Pass Normal [facility] Comment on above: Performed By: #### 1 [id number] #### [facility] (DEFAULT) [address] [place] [address] Progress Note - Nurseon 01-11 Progress Note - Nurse Patient provided with fluids [Electronically Signed on: 02/07/2022 18:30 EDT] __ Salena Ochoa RN [Verified on: 02/07/2022 18:30 EDT] __ Don Salena RN Normal [facility] UA w Culture if Ind Standard on 02-07-2022 Breakpoint UA [facility] Comment on above: Performed By: #### 1 [id number] #### [facility] (DEFAULT) [address] [place] [address] Color (U) Yellow Normal [facility] Comment on above: Performed By: #### 1 [id number] #### [facility] (DEFAULT) [address] [place] [address] Culture? Not Indicated Invalid Interpretation Code [facility] Comment on above: Result Comment: Resu lt created by rule GL_MAGR_ADD_UA_CULT1 Performed By: #### 1 [id number] #### [facility] (DEFAULT) [address] [place] [address] Glucose (U) [Mass/Vol] Negative [facility] Comment on above: Performed By: #### 1 [id number] #### [facility] (DEFAULT) [address] [place] [address] Ketones Ql (U) 40 [facility] Comment on above: Performed By: #### 1 [id number] #### [facility] (DEFAULT) [address] [place] [address] Micro? Not Indicated Invalid Interpretation Code [facility] Comment on above: Result Comment: Resu lt created by rule GL_MAGR_ADD_UA_MICRO Performed By: #### 1 [id number] #### [facility] (DEFAULT) [address] [place] [address] UA Bilirubin SMALL Abnormal [facility] Comment on above: Performed By: #### 1 [id number] #### [facility] (DEFAULT) [address] [place] [address] UA Blood Negative Normal NEGATIVE [facility] Comment on above: Performed By: #### 1 [id number] #### [facility] (DEFAULT) [address] [place] [address] UA Clarity CLEAR Normal CLEAR [facility] Comment on above: Performed By: #### 1 [id number] #### [facility] (DEFAULT) [address] [place] [address] UA Leuk Est Negative Normal NEGATIVE [facility] Comment on above: Performed By: #### 1 [id number] #### [facility] (DEFAULT) [address] [place] [address] UA Nitrite Negative Normal NEGATIVE [facility] Comment on above: Performed By: #### 1 [id number] #### [facility] (DEFAULT) [address] [place] [address] UA pH 6.5 Normal 5-8 [facility] Comment on above: Performed By: #### 1 [id number] #### [facility] (DEFAULT) [address] [place] [address] UA Protein Negative Normal [facility] Comment on above: Performed By: #### 1 [id number] #### [facility] (DEFAULT) [address] [place] [address] UA Spec Grav >=1.030 Normal 1.001-1.035 [facility] Comment on above: Performed By: #### 1 [id number] #### [facility] (DEFAULT) [address] [place] [address] UA Urobilinogen 1.0 mg/dL Normal 0.2-1.0 [facility] Comment on above: Performed By: #### 1 [id number] #### [facility] (DEFAULT) [address] [place] [address] Urine Source Clean Catch Normal [facility] Comment on above: Performed By: #### 1 [id number] #### [facility] (DEFAULT) [address] [place] [address] Urgent Care Note- Provideron 02-07-2022 Urgent Care Note- Provider Patient: SENTHIL CSOTT Age: 21 years Sex: FEMALE : 2000 [...] glass of water today. Ate McDouble and Hebrew fries at 5:30pm. + influenza exposure 4 days ago. ALL: None Meds: Midodrine 5mg TID. PMH: Neurocardiogenic syncope, leaky valve of heart Social: Called off work today from [employer]. Worked 02/04, 02/05, 02/06. Marijuana daily. Review [...] advised to have off work from [employer] today tomorrow and February 09. May return [...] 18:01 E (more content not included)... Normal [facility] [place] 022 Urgent Care Record [facility] ? Urgent Care [address] [place] [address] PATIENT DISCHARGE INSTRUCTIONS Patient Information Name: SENTHIL SCOTT Age: 21 Years Date of : 2000 Reason For Visit: UC - Headache; HEADACHE, NAUSEA Arrival Time: 02/07/2022 17:42:14 Primary Care Physician: Liberty Pierre MD Attending Physician: Cedric Hemphill Comment: Visit Diagnosis: Diagnoses This Visit Aching headache (R51.9) Mild dehydration (E86.0) Tachycardia (R00.0) UC - Headache ([id number]) Viral URI with cough (J06.9) If you [...] legal documents With: Address: When: Liberty Pierre [address] [place] [address] [place] [address] Business (1) Within 2 to 4 days [...] guidelines from the [facility] Medical Board [facility]. -Push fluids to stay hydrated. -Use Tylenol [...] to drop your groceries off and pick up worker your medications. I would recommend that person [...] and treatment you received today in the [facility] were for an urgent problem and are not intended as complete care. It is important for you to follow up with a doctor, nurse practitioner, or physician?s sales and marketing assistant for ongoing care. If your symptoms become worse or you do not improve as expected and you are unable to reach your usual health ca (more content not included)... Normal [facility] CHLAMYDIA/GONOCOCCUS EMELYN (SW AB/URINE/PAPon 12-11-2021 Chlamydia trachomatis, EMELYN Negative Normal Negative [facility] Comment on above: Performed By: #### C T/NGNA #### [facility] [address] [place] [address] Dr. Soraya Tavarez Neisseria gonorrhoeae, EMELYN Negative Normal Negative [facility] Comment on above: Performed By: #### C T/NGNA #### [facility] [address] [place] [address] [address] Soraya Tavarez VAGINITIS/VAGINOSIS DNA PROB Jon 12-10-2021 Elvia species Negative Normal Negative [facility] Comment on above: Performed By: #### V AGINT #### [facility] [address] [place] [address] [address] Soraya Tavarez Gardnerella vaginalis Negative Normal Negative [facility] Comment on above: Performed By: #### V AGINT #### [facility] [address] [place], [place] [address] Dr. Soraya Tavarez Trichomonas vaginalis Negative Normal Negative [facility] Comment on above: Performed By: #### V AGINT #### [facility] [address] [place] [address] [address] [address] Soraya Tavarez US PELVIS TRANSVAGon 022 [...] CLARY LOYD Date: 2021-12-08 14:57 Normal [facility] CORTISOLon 10-22-2020 CORTISOL 11.0 mcg/dL Normal [facility] Comment on above: Result Comment: Refe rence Range: AM 6.0-23.0 mcg/dL PM 0.0-9.0 mcg/dL Performed By: #### 3 [id number] #### [facility] [address] [place]IN [place] [address]md Thyroglobulin Ab Qn [IU]/mL Normal 0.0-4.0 [facility] Comment on above: Result Comment: INTE RPRETIVE INFORMATION: Thyroglobulin Antibody A value of 4.0 IU/mL or less indicates a negative result for thyroglobulin antibodies. The Thyroglobulin Antibody assay is being performed using the [employer] Access DxI method. Performed By: [facility] [address] [place] [address] Oil Field Worker: Kassy Pickens MD TPO ANTIBODY [id number] TPO ANTIBODY 0.3 IU/mL Normal 0.0-9.0 [facility] Comment on above: Result Comment: Perf ormed By: [facility] [address] [place] [address] Oil Field Worker: Kassy Pickens MD TSH RECEPTOR [place] [id number] TSH RECEPTOR AB <0.90 Normal <=1.75 [facility] Comment on above: Result Comment: Perf ormed By: [facility] [address] [place] [address] Oil Field Worker: Kassy Pickens MD Vital Signs Date Time Vital Sign Value Performing Clinician Facility 10-01-2024 13:43-0500 Body height 162.56 cm [facility] 10-01-2024 13:43-0500 Body mass index (BMI) [Ratio] 18 kg/m2 [facility] 10-01-2024 13:43-0500 Body weight 47.62 kg [facility] 10-01-2024 13:43-0500 Diastolic blood pressure 69 mm[Hg] [facility] 10-01-2024 13:43-0500 Heart rate 105 /min [facility] 10-01-2024 13:43-0500 Systolic blood pressure 99 mm[Hg] [facility] 09-02-2024 15:25-0500 Body mass index (BMI) [Ratio] 15.62 kg/m2 Wesly Linette DO Work Phone: [facility] 09-02-2024 15:25-0500 Body weight 41.28 kg Wesly Linette DO Work Phone: [facility] 09-02-2024 15:25-0500 Diastolic blood pressure 60 mm[Hg] Wesly Linette DO Work Phone: [facility] 09-02-2024 15:25-0500 Systolic blood pressure 100 mm[Hg] Wesly Linette DO Work Phone: [facility] 08-21-2024 10:45-0500 Body height 162.56 cm [facility] 08-21-2024 10:45-0500 Body mass index (BMI) [Ratio] 18 kg/m2 [facility] 08-21-2024 10:45-0500 Body temperature 98 [degF] [facility] 08-21-2024 10:45-0500 Body weight 47.68 kg [facility] 08-21-2024 10:45-0500 Diastolic blood pressure 64 mm[Hg] [facility] 08-21-2024 10:45-0500 Heart rate 88 /min [facility] 08-21-2024 10:45-0500 SaO2% (BldA) [Mass fraction] 100 % [facility] 08-21-2024 10:45-0500 Systolic blood pressure 116 mm[Hg] [facility] 2023 09:32-0500 Body mass index (BMI) [Ratio] 24.2 kg/m2 [employer] Work Phone: [facility] 2023 09:32-0500 Body weight 63.96 kg Wesly Linette DO Work Phone: [facility] 2023 09:32-0500 Diastolic blood pressure 70 mm[Hg] Wesly Linette DO Work Phone: [facility] 2023 09:32-0500 Systolic blood pressure 110 mm[Hg] Wesly Linette [employer] Work Phone: [facility] 10-04-2023 09:45-0500 Body height 162.56 cm Liberty Pierre Other [facility] [employer] Other 10-04-2023 09:45-0500 Body mass index (BMI) [Ratio] 23.51 kg/m2 Liberty Pierre Other [facility] [employer] Other 10-04-2023 09:45-0500 Body temperature 97.8 [degF] Liberty Pierre Other [facility] [employer] Other 10-04-2023 09:45-0500 Body weight 62.14 kg Liberty Pierre Other [employer] Other 10-04-2023 09:45-0500 Diastolic blood pressure 80 mm[Hg] Liberty Pierre Other [employer] Other 10-04-2023 09:45-0500 SaO2% (BldA) [Mass fraction] 98 % Liberty Pierre Other [employer] Other 10-04-2023 09:45-0500 Systolic blood pressure 108 mm[Hg] Liberty Pierre Other [employer] Other 09-18-2023 13:08-0500 Body height 162.6 cm Arlette Mustafa MD Work Phone: [employer] 09-18-2023 13:08-0500 Body mass index (BMI) [Ratio] 23.79 kg/m2 Arlette Mustafa MD Work Phone: [employer] 09-18-2023 13:08-0500 Body weight 62.87 kg Arlette Mustafa MD Work Phone: [employer] 09-18-2023 13:08-0500 Diastolic blood pressure 64 mm[Hg] Arlette Mustafa MD Work Phone: [employer] 09-18-2023 13:08-0500 Heart rate 89 /min Arlette Mustafa MD Work Phone: [employer] 09-18-2023 13:08-0500 Systolic blood pressure 109 mm[Hg] Arlette Mustafa MD Work Phone: [employer] 07-22-2023 10:10-0500 Body height 162.56 cm Tiesha Andrews Other [employer] Other 07-22-2023 10:10-0500 Body mass index (BMI) [Ratio] 20.94 kg/m2 Tiesha Andrews Other [employer] Other 07-22-2023 10:10-0500 Body temperature 98.1 [degF] Tiesha Andrews Other [employer] Other 07-22-2023 10:10-0500 Body weight 55.34 kg Tiesha Andrews Other [employer] Other 07-22-2023 10:10-0500 Respiratory rate 18 /min Tiesha Andrews Other [employer] Other 07-22-2023 10:10-0500 SaO2% (BldA) [Mass fraction] 98 % Tiesha Andrews Other [employer] Other 05-09-2023 14:30-0400 Body height 162.56 cm Liberty Pierre Other [employer] Other 05-09-2023 14:30-0400 Body mass index (BMI) [Ratio] 17.64 kg/m2 Liberty Pierre Other [employer] Other 05-09-2023 14:30-0400 Body weight 46.63 kg Liberty Pierre Other [employer] Other 05-09-2023 14:30-0400 Diastolic blood pressure 64 mm[Hg] Liberty Pirere Other [employer] Other 05-09-2023 14:30-0400 Systolic blood pressure 104 mm[Hg] Liberty Pierre Other [employer] Other 10-21-2022 12:30-0500 Body height 162.56 cm Liberty Pierre Other [employer] Other 10-21-2022 12:30-0500 Body mass index (BMI) [Ratio] 18.71 kg/m2 Liberty Pierre Other [employer] Other 10-21-2022 12:30-0500 Body weight 49.44 kg Liberty Pierre Other [employer] Other 10-21-2022 12:30-0500 Diastolic blood pressure 60 mm[Hg] Liberty Pierre Other [employer] Other 10-21-2022 12:30-0500 SaO2% (BldA) [Mass fraction] 97 % Liberty Pierre Other [employer] Other 10-21-2022 12:30-0500 Systolic blood pressure 108 mm[Hg] Liberty Pierre Other [employer] Other 10-17-2022 17:39-0500 Diastolic blood pressure 53 mm[Hg] MD Liberty Pierre Work Phone: [facility] 10-17-2022 17:39-0500 Heart rate 95 /min MD Liberty Pierre Work Phone: [facility] 10-17-2022 17:39-0500 Respiratory rate 16 /min MD Liberty Pierre Work Phone: [facility] 10-17-2022 17:39-0500 SaO2% (BldA) [Mass fraction] 98 % MD Liberty Pierre Work Phone: [facility] 10-17-2022 17:39-0500 Systolic blood pressure 102 mm[Hg] MD Liberty Pierre Work Phone: [facility] 10-17-2022 15:42-0500 Body height 162.56 cm MD Liberty Pierre Work Phone: [facility] 10-17-2022 15:42-0500 Body temperature 97.8 [degF] MD Liberty Pierre Work Phone: [facility] 10-17-2022 15:42-0500 Body weight 50.1 kg MD Liberty Pierre Work Phone: [facility] 05-31-2022 14:29-0400 Blood Pressure Location Sal STEINBERGL [facility] 05-31-2022 14:29-0400 Diastolic blood pressure 60 mm[Hg] Sal NILL [facility] 05-31-2022 14:29-0400 Heart rate 68 /min Sal NILL [facility] 05-31-2022 14:29-0400 Respiratory rate 16 /min Sal NILL [facility] 05-31-2022 14:29-0400 Systolic blood pressure 108 mm[Hg] Sal NILL [facility] Encounters Encounter Date Encounter Type Care Provider Facility Start: 10-01-2024 End: 10-01-2024 ambulatory [facility] Work Phone: Start: 10-01-2024 End: 10-01-2024 Patient encounter procedure [facility] Work Phone: Start: 09-02-2024 Non-patient / Non-visit [facility] Work Phone: Start: 09-02-2024 End: 09-02-2024 Patient [...] BCP OB Start: 08-29-2024 Non-patient / Non-visit [facility] Work Phone: Start: 08-28-2024 End: 08-28-2024 Patient encounter procedure [facility] Work Phone: Start: 08-21-2024 End: 08-21-[address] [facility] Work Phone: Start: 08-13-2024 Non-patient / Non-visit [facility] Work Phone: Start: 03-05-2024 End: [...] Start: 10-27-2023 End: 10-27-2023 [facility] Start: 10-27-2023 End: 10-27-2023 Emergency department patient visit CONCHA BEJARANO [facility] Start: 2023 End: 2023 flow sheet Wesly Sue DO Work Phone: [facility] Comment on above: Third trimester preg mamadou Start: 2023 End: 2023 ambulatory WESLY SUE Not Available Start: 10-16-2023 Telephone encounter Makayla Good RN [facility] Start: 10-09-2023 End: 10-09-2023 ambulatory STEPHEN FOX Not Available Start: 10-04-2023 End: 10-04-2023 ambulatory Liberty Pierre Other [employer] Other Start: 10-04-2023 Office outpatient vi sit 15 minutes Liberty Pierre [facility] Start: 09-25-2023 End: 09-25-2023 ambulatory WESLY KABAO Not Available Start: 09-21-2023 End: 09-21-2023 ambulatory Liberty Pierre Other [employer] Other Start: 09-21-2023 Office outpatient vi sit 15 minutes Liberty Pierre [facility] Start: 09-18-2023 End: 09-19-2023 ambulatory WESLY SUE [facility] Start: 09-18-2023 End: 09-18-2023 Office outpatient visit 25 minutes Arlette Mustafa MD Work Phone: [facility] Comment on above: Heartburn during pre gnancy in third trimester (Primary Dx); Cardiovascular disease of mother in , antepartum, third trimester; Postural orthostatic tachycardia syndrome; cardiac echogenic focus, antepartum, single or unspecified fetus Start: 08-29-2023 Telephone encounter [facility] Comment on above: NEW PATIENT REFERRAL Start: 07-27-2023 ambulatory MELINA HAMM [facility] Start: 07-22-2023 End: 07-22-2023 ambulatory Tiesha Andrews Other [employer] Other Start: 07-22-2023 Office outpatient vi sit 15 minutes Tiesha Andrews [facility] [facility] Start: 05-25-2023 End: 05-25-2023 ambulatory Liberty Pierre Other [facility] Other Start: 05-25-2023 Telephone encounter Liberty Pierre [facility] Start: 05-09-2023 End: 05-09-2023 ambulatory Liberty Pierre Other [facility] Other Start: 05-09-2023 Office outpatient vi sit 15 minutes Liberty Pierre [facility] Start: 11-02-2022 End: 11-03-[address] LIBERTY PIERRE Facility:[facility] Start: 10-21-2022 End: 10-21-2022 ambulatory Liberty Pierre Other [facility] Other Start: 10-21-2022 Office outpatient vi sit 15 minutes Liberty Pierre [facility] Start: 10-17-2022 End: 10-17-2022 Emergency department patient visit Kaci Morales Facility:[facility] Start: 10-17-2022 End: 10-17-2022 Emergency department patient visit MD Liberty Pierre Work Phone: [facility] Work Phone: Start: 10-04-2022 End: 10-05-[address] CLARY LOYD Facility:[facility] Start: 08-16-2022 End: 08-17-[address] CLARY LOYD Facility:[facility] Start: 07-26-2022 End: 07-27-[address] CLARY LOYD Facility:[facility] Start: 07-19-2022 Well child visit Liberty Pierre Other [facility] Other Start: 07-12-2022 End: 07-13-[address] LIBERTY PIERRE Facility:[facility] Start: 05-31-2022 End: 06-01-2022 ambulatory Wesly SUE Facility: [facility] Start: 05-31-2022 End: 05-31-2022 Patient encounter procedure Sal DOWNS General [facility] Start: 05-02-2022 ambulatory LIBERTY PIERRE PROVIDER Facility: [facility] Start: 12-08-2021 End: 12-08-[address] LIBERTY PIERRE Facility: Start: 12-08-2021 End: 12-09-[address] WESLY SUE . Facility:[facility] Procedures Date Procedure Procedure Detail Performing Clinician Start: 09-02-2024 IGP,APTIMA HPV,AGE GDLN Wesly Sue DO Work Phone: Start: 08-21-2024 Quick Strep [...] for malignant neoplasm of cervix [facility] Start: 09-18-2024 Adult BMI Screening Adult [facility] Screen ing [facility] Start: 09-18-2024 Tobacco Screening Tobacco Screening [facility] Start: 09-02-2024 End: 09-02-2024 Patient encounter procedure [facility] Comment on above: Arrived Start: 08-08-2024 Adult BMI Screening Adult BMI Screen ing [facility] Start: 12-06-2023 End: 12-06-2023 Patient encounter procedure 12/06/2023 10:30 AM EDT Office Visit [facility] [place] [phone] Genoveva Bailon MD [facility], [address] [place] [phone] [facility] Start: 11-13-2023 End: 11-13-2023 Patient encounter procedure 11/13/2023 1:40 PM EST Routine [facility] [address] [place] [phone] Wesly Sue, [address] [place] [address] [facility] Start: 10-16-2023 End: 10-16-2023 Telemedicine consultation with patient 10/16/2023 2:30 PM EST Telemedicine Maternal- Medicine at [address] [phone] Arlette Mustafa MD [address] [place] [id number] Maternal- Medicine at [facility] Start: 09-18-2023 End: 09-18-2024 Echo complete W/O contrast Echo complete W/O contrast Echocardiography Routine Cardiovascular disease of mother in , antepartum, third trimester Postural orthostatic tachycardia syndrome cardiac echogenic focus, antepartum, single or unspecified fetus Heartburn during in third trimester Expected: 09/18/2023, Expires: 09/18/2024 [facility] Comment on above: Expected: 09/18/2023 , Expires: 09/18/2024 Start: 09-18-2023 End: 09-18-2023 Patient encounter procedure [facility] Start: 05-12-2023 Influenza vaccination Influenza Vacc ine [facility] Start: 10-17-2022 Bacteria identified in Urine by Culture [facility] Start: 2021 Screening for malignant neoplasm of cervix Pap Smear [facility] Start: 2019 DTaP,Tdap and Td Vaccines (1 - Tdap) DTaP,Tdap and Td Vaccines (1 - Tdap) [facility] Start: 2012 Depression Screening Depression Scre ening [facility] Start: 2012 Tobacco Screening Tobacco Screening [facility] Cytology Cervical or vaginal smear or scraping study Pap Smear Pathology and Cytology Routine Well woman exam with routine gynecological exam Ordered: 09/02/2024 [facility] Work Phone: Comment on above: Ordered: 09/02/2024 End: 09-17-2024 ECG 12 lead ECG 12 lead ECG Routine Cardiovascular disease of mother in , antepartum, third trimester Postural orthostatic tachycardia syndrome cardiac echogenic focus, antepartum, single or unspecified fetus Heartburn during in third trimester 1 Occurrences starting 09/18/2023 until 09/17/2024 [facility] Work Phone: Comment on above: 1 Occurrences starti ng 09/18/2023 until 09/17/2024 Patient Education Head Injury in Adults [facility] Work Phone: Patient referral [facility] Work Phone: XR Elbow - left GE 3 Views [facility] XR Knee - left 4 Views [facility] Immunizations Immunization Date Immunization Notes Care Provider Luisito spencer 04-09-2019 meningococcal oligosaccharide (groups A, C, Y and W-135) diphtheria toxoid conjugate vaccine (MCV4O) Liberty Pierre Other [facility] Payers Date Payer Category Payer Medicaid [id number] 2023 Medicaid [id number] [id number] 2023 [facility] BCBS [id number]. [id number] 2023 Unknown [id number]. 1.13.693.2. 7.3.623099.315 2022 Self-pay [id number] 2000 Unknown [id number] 2.16.840.1.454707.3.579.2. 727 2000 Unknown [id number] 2.16.840.1.042345.3.579.2. 593 2000 Unknown [id number] 2.16.840.1.770497.3.579.2. 593 2000 Unknown [id number] 2.16.840.1.627401.3.579.2. 593 2000 Unknown [id number] 2.16.840.1.960111.3.579.2. 593 2000 Unknown [id number] 2.16.840.1.324582.3.579.2. 593 2000 Unknown [id number] 2.16.840.1.140271.3.579.2. 593 2000 Unknown [id number] 2.16.840.1.351393.3.579.2. 593 2000 Unknown [id number] 2.16.840.1.791208.3.579.2. 1286 2000 Unknown [id number] 2.16.840.1.158989.3.579.2. 1286 2000 Unknown [id number] 2.16.840.1.022797.3.579.2. 1286 2000 Unknown [id number] 2.16.840.1.086597.3.579.2. 1286 2000 Unknown [id number] 2.16.840.1.812880.3.579.2. 1286 2000 Unknown [id number] 2.16.840.1.300021.3.579.2. 1286 2000 Unknown [id number] 2.16.840.1.452632.3.579.2. 9 2000 Unknown [id number] 2.16.840.1.424217.3.579.2. 1258 2000 Unknown [id number] 2.16.840.1.032867.3.579.2. 9 2000 Unknown [id number] 2.16.840.1.945713.3.579.2. 9 2000 Unknown [id number] 2.16.840.1.358347.3.579.2. 9 2000 Unknown [id number] 2.16.840.1.629750.3.579.2. 9 2000 Unknown [id number] 2.16.840.1.915569.3.579.2. 1259 2000 Unknown [id number] 2.16.840.1.178868.3.579.2. 9 2000 Unknown [id number] 2.16.840.1.914233.3.579.2. 9 2000 Unknown [id number] 2.16.840.1.602386.3.579.2. 1259 1979 Unknown [id number] 2.16.840.1.287731.3.579.2. 727 1959 Unknown [id number] Unknown [id number] 2.16.840.1.684269.3.579.2. 531 Unknown [id number] Social History Date Type Detail Facility Start: 05-31-2022 End: 06-16-2023 Tobacco smoking status Never smoked tobacco (finding) [facility] Tobacco smoking status Never [facility] Start: 05-22-2023 End: 09-18-2023 Sex Assigned At Female [facility] Start: 10-17-2022 Tobacco smoking stat [facility] Smoker (finding) [facility] Start: 2000 Sex Assigned At Female [facility] Start: 05-22-2023 End: 06-16-2023 Tobacco use and exposure Smokeless tobacco non-user [facility] Start: 09-18-2023 End: 2023 Alcohol intake Lifetime non-drinker (finding) [facility] Start: 05-22-2023 End: 09-18-2023 History of Social function [facility] Start: 03-16-2023 [facility] Start: 2000 Sex Assigned At Not on file [facility] Start: 10-01-2024 Sex Female (finding) [facility] Functional Status Date Assessment Result Facility 05-31-2022 Functional Status N/A [facility] Clinical Notes 02-07-2022 to 09-02-2024 Lizette Bautista [...] nursing note reviewed. Exam conducted with a physical education aide present. Vitals: Estimated body mass index is [...] Wesly Sue DO documented in this encounter [facility] 08-29-2024 Telephone encounter Note Form atting of [...] Pt is scheduled for yearly exam 09/02/24. [facility] 08-29-2024 Miscellaneous Notes Formattin g [...] yearly exam 09/02/24. documented in this encounter [facility] 08-21-2024 Evaluation note Diagnosis Onset Date Resolution Maxillary sinusitis acute Decem 2023 10:41am Dysuria acute August 28, 2024 11:44am Left elbow pain acute September 122024 1:43pm Left knee injury acute October 01, 2024 1:43pm [facility] Work Phone: [phone] History of Present illness Narrative* Lizette Bautista MA - 2023 9:30 AM EST Reason [...] nursing note reviewed. Exam conducted with a physical education aide present. Patient presents today for a routine [...] of: Wesly Sue DO [facility] [id number] Miscellaneous Notes* Telephone Encounter - Makayla Good RN - 10/16/2023 2:50 PM EST Called Patient to notify her of missed MFM appointment and to reschedule. Patient didn't answer andno voicemail set up. Patient Mychart not set up yet. No message was able to be sent. Letter sent Richard OB. [facility] Telephone encounter Note* Telephone Encounter - Makayla Good RN - 10/16/2023 2:50 PM EST Called Patient to notify her of missed MFM appointment and to reschedule. Patient didn't answer andno voicemail set up. Patient Mychart not set up yet. No message was able to be sent. Letter sent Chenrimarpadmini OB. [facility]01-24-2024 Evaluation note* Encounter Date Diagnosis Assessment Notes Treatment Notes Treatment Clinical Notes Sep, Acute non-recurrent maxillary sinusitis (ICD-10 - J01.00) Finish antibiotics WIll notify her OB work note given. [facility] Other 01-11-2024 Evaluation note* Encounter Date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
== END 2024-11-28 09:24 | disposition home or self-care (01) ==
LOC: RAD 09:26
PROVIDERS: PCP Family Medicine; Visit Provider Family Medicine
DX: M25.532 Pain in left wrist (principal); M25.512 Pain in left shoulder
CPT/HCPCS: 73030; 73100